=== PATIENT | female | born 1950 | race Caucasian/White ===

== ENCOUNTER → 2016-10-30 | Outpatient (CLI) | payer MEDICARE | LOC: RAD 14:07 | PROVIDERS: ATTEND Physician Assistant | DX: M25.561 Pain in right knee (principal) ==

== ENCOUNTER 2016-11-25 11:34 | Day surgery (SDC) | payer MEDICARE ==
[2016-11-23 11:10] LABS: HEMATOCRIT 43.1 % (36.0-47.0); HEMOGLOBIN 14.5 g/dL (12.0-15.5); HGB HCT DIFFERENCE 0.4; MEAN CORPUSCULAR HEMOGLOBIN 31.4 pg (27.0-33.4); MEAN CORPUSCULAR HGB CONC 33.6 g/dL (32.0-36.0); MEAN CORPUSCULAR VOLUME 93 fl (80-97); RED BLOOD COUNT 4.62 10^6/uL (3.72-5.28); RED CELL DISTRIBUTION WIDTH 13.9 % (11.5-14.0); WHITE BLOOD COUNT 5.3 10^3/uL (4.0-10.5)
[2016-11-23 11:35] LABS: ANION GAP 5 (5-19); BLOOD UREA NITROGEN 24 mg/dL (7-20); CALCIUM 9.3 mg/dL (8.4-10.2); CARBON DIOXIDE 32 mmol/L (22-30); CHLORIDE 104 mmol/L (98-107); GLUCOSE 142 mg/dL (75-110); POTASSIUM 4.1 mmol/L (3.6-5.0); SODIUM 140.9 mmol/L (137-145)
--- NOTE | 2016-11-23 21:52 | EKG REPORT ---
SEVERITY:- ABNORMAL ECG - SINUS RHYTHM FIRST DEGREE AV BLOCK BORDERLINE LEFT AXIS DEVIATION : Confirmed by: Yani Rolon 23-Nov-2016 21:50:50
[~2016-11-25 11:34] MED LIST: CEFAZOLIN 2 GM/D5W RTU 2 GM/50 ML RTUPB IV PRN; LACTATED RINGERS 1000 ML IV PRN; LIDOCAINE 0.5% INJ-PF (5 MG/ML) 50 ML SDV SUBCUT PRN; SUCCINYLCHOLINE CHLORIDE INJ 200 MG/10 ML VIAL ONE; SULFAMETHOXAZOLE/TRIMETHOPRIM 800-160 MG TABLET PO PRN
[2016-11-25] MEDS ORDERED: MIDAZOLAM 2 MG/2 ML INJ ONE (14:19)
[2016-11-25] MEDS ORDERED: FENTANYL CITRATE INJ/PF 100 MCG/2 ML AMPUL ONE ×2 (14:19)
[2016-11-25] MEDS ORDERED: EPHEDRINE SULFATE INJ 50 MG/1 ML AMPULE ONE (14:19)
[2016-11-25] MEDS ORDERED: ONDANSETRON HCL INJ/PF 4 MG/2 ML SDV ONE (14:19)
[2016-11-25] MEDS ORDERED: ACETAMINOPHEN 100 ML IV ONE (14:20)
[2016-11-25] MEDS ORDERED: PROPOFOL INJ 200 MG/20 ML VIAL IV ONE (14:20)
[2016-11-25] MEDS ORDERED: ONDANSETRON HCL INJ/PF 4 MG/2 ML SDV IV PRN (14:49)
[2016-11-25] MEDS ORDERED: FENTANYL CITRATE INJ/PF 100 MCG/2 ML AMPUL IV PRN ×3 (14:49)
[2016-11-25] MEDS ORDERED: HYDROCODONE/ACETAMINOPHEN 7.5-325 MG TABLET PO PRN (16:25)
[2016-11-25] MEDS: FENTANYL CITRATE INJ/PF 100 MCG/2 ML AMPUL ONE ×2 (16:35→16:46)
[2016-11-25] MEDS ORDERED: ONDANSETRON 4 MG TAB.RAPDIS ONE (17:53)
[2016-11-25 18:50] VITALS: BP 194/88
--- NOTE | 2016-12-18 10:32 | Operative Report ---
Operative Report DATE OF SURGERY: 11/25/16 PREOPERATIVE DIAGNOSIS: Severe Urinary Incontinence POSTOPERATIVE DIAGNOSIS: Same OPERATION: Suprapubic Catheter Placement SURGEON: EMERSON HUGHES ANESTHESIA: GA TISSUE REMOVED OR ALTERED: NO COMPLICATIONS: NO ESTIMATED BLOOD LOSS: <30cc INTRAOPERATIVE FINDINGS: N/A PROCEDURE: The patient was brought to the operating room where she was placed in the supine position on the operating table followed by induction of general anesthesia. The skin of the lower abdomen, genitalia, perineum and upper thighs was repaired with ChloraPrep. The area was then draped in sterile fashion. A transverse suprapubic incision was then made 2 fingerbreadths above the pubic symphysis. Section was carried down through the suprapubic fat pad is several centimeters until the anterior rectus sheath was identified. The midline was identified. The rectus sheath was incised transversely exposing the underlying rectus muscle bellies. Muscle bellies were bluntly in the midline exposing the retropubic space. Fat overlying the anterior bladder wall was then teased away until the anterior bladder wall was identified. A small anterior cystotomy incision was made between 2 Allis clamps entering the bladder lumen. A 20 La[employer] Sales catheter was then placed through the cystotomy incision into the bladder. The cystotomy incision was closed plantar. The cystotomy incision was then closed around the catheter using running 2-0 chromic suture. The catheter was anchored to the bladder wall with a separate 2-0 chromic suture. The catheter balloon was inflated to 10 mL the catheter was irrigated with normal saline with excellent return, indicating good position of the catheter within the bladder. Irrigation of the subcutaneous and retropubic spaces was then carried out. Meticulous hemostasis was achieved throughout the operative field. The rectus muscle bellies and into rectus sheath were reapproximated with running 0 Vicryl allowing the suprapubic tube to exit through the midline of the incision. The subcutaneous tissues beneath the skin level were reapproximated running 3-0 Vicryl, again taking care to make sure the tube was exiting the middle of the incision. Approximately with skin diallo around the tube. A 3-0 nylon suture was then used to anchor the tube to the suprapubic skin. An occlusive dressing was applied. The catheter was anchored to the abdominal wall and then was placed to gravity drainage with the bag tubing anchored to the thigh using a leg strap completing the procedure.
== END 2016-11-25 18:25 | disposition home or self-care (01) ==
LOC: OROUT 11:34
PROVIDERS: ATTEND Urology
PROC: 0TH Urinary System, Insertion (ICD-10-PCS; principal; 2016-11-25 14:00)
DX: N39.46 Mixed incontinence (principal); I10 Essential (primary) hypertension; E66.01 Morbid (severe) obesity due to excess calories; M06.9 Rheumatoid arthritis, unspecified; R01.1 Cardiac murmur, unspecified; E11.40 Type 2 diabetes mellitus with diabetic neuropathy, unspecified; E03.9 Hypothyroidism, unspecified; M79.7 Fibromyalgia; M35.9 Systemic involvement of connective tissue, unspecified; Z96.641 Presence of right artificial hip joint; Z96.652 Presence of left artificial knee joint; Z88.0 Allergy status to penicillin; Z88.5 Allergy status to narcotic agent; Z88.1 Allergy status to other antibiotic agents; Z88.8 Allergy status to other drugs, medicaments and biological substances; Z79.899 Other long term (current) drug therapy; Z79.84 Long term (current) use of oral hypoglycemic drugs; Z79.4 Long term (current) use of insulin; Z85.828 Personal history of other malignant neoplasm of skin; Z86.14 Personal history of Methicillin resistant Staphylococcus aureus infection; Z68.44 Body mass index [BMI] 60.0-69.9, adult
CPT/HCPCS: 93005; 36415; 82962; 85027; 80048; 71020; 93010; 51040; J2250; A9270 ×3; J3010; J0330; J2405; J2704; J0131; 800; J3490; S0119

== ENCOUNTER 2016-11-26 10:30 | Emergency (ER) | payer MEDICARE ==
[2016-11-26] MEDS ORDERED: ONDANSETRON 4 MG TAB.RAPDIS PO ONE (12:39)
--- NOTE | 2016-11-26 12:39 | ER Document Report ---
ED General - General Time seen by provider: 12:55 Mode of Arrival: Medic Information source: Patient, Relative - daughter in law TRAVEL OUTSIDE OF THE [place] IN LAST 30 DAYS: No - HPI Onset: Other - see HPI note Associated symptoms: Nonproductive cough, Nausea, Vomiting. denies: Fever - General Chief Complaint: Post Surgical Bleeding Stated Complaint: BLEEDING FROM CATHETER Notes: Patient is a 66-year-old female presented emergency department with complaints of post operative bleeding along with some nausea and vomiting. Patient had a suprapubic catheter placed yesterday while under anesthesia. Patient states that she gets very nauseous from anesthesia. Patient has had some bloody discharge from around associated pubic catheter and said that it has been soaking up the gauze. Patient states that her daughter did not come to assist her last night and her catheter was not lowered so there may have been some back up. Patient states that she vomited all night long and is requesting something P of fluids. Patient denies any fever. Patient has home health visit her 2 times per week. Patient states that she has had to recover her incision multiple times due to the drainage. The urologist who conducted the operation yesterday, Lakhwinder Hughes MD, was into the emergency department to see the patient at time of exam. Patient's also has a cough that she attests that it is from anesthesia. Patient is presently emergency department with her [id number]. Dr. Hughes states that the patient's discharge should gradually stop and she does not need any antibiotics for this; he also states that the patient should be able to go home and contact him if there are any worsening symptoms. (AMANDA SCHILLING) - Related Data Allergies/Adverse Reactions: ciprofloxacin [From Cipro] Allergy (Severe, Verified 05/28/15 16:20) Anaphylaxis Penicillins Allergy (Severe, Verified 05/28/15 16:20) Anaphylaxis adhesive tape [Adhesive Tape] Adverse Reaction (Severe, Verified 11/23/16 10:51) BLISTERS, SKIN BECOMES RAW indomethacin [From Indocin] Adverse Reaction (Severe, Verified 11/23/16 10:51) CAUSES SWELLING AND INFLAMMATION meperidine HCl [From Demerol] Adverse Reaction (Severe, Verified 11/23/16 10:51) Hallucinations Past Medical History - General Information source: Patient - Social History Smoking Status: Unknown if Ever Smoked Family History: Hypertension - Past Medical History Cardiac Medical History: Reports: Hx Coronary Artery Disease - vascular probs pennie legs, Hx Hypercholesterolemia, Hx Hypertension - on meds, Hx Peripheral Vascular Disease, Hx Heart Murmur Pulmonary Medical History: Reports: Hx Asthma - severe,neb,inhaler, Hx Bronchitis - in past Endocrine Medical History: Reports: Hx Diabetes Mellitus Type 2, Hx Hypothyroidism Renal/ Medical History: Reports: Hx Ovarian Cysts GI Medical History: Reports: Hx Gastroesophageal Reflux Disease, Hx Hiatal Hernia, Hx Irritable Bowel Musculoskeltal Medical History: Reports Hx Arthritis - RA,fibromyalgia, Reports Hx Fibromyalgia Traumatic Medical History: Reports: Hx Fractures Past Surgical History: Reports: Hx Cholecystectomy, Hx Gastric Bypass Surgery - Lap Band, post in stomach for lap band , Hx Hysterectomy, Hx Orthopedic Surgery - right hip x3, left knee x1 - Immunizations Hx Diphtheria, Pertussis, Tetanus Vaccination: Yes Hx Pneumococcal Vaccination: 10/11/12 Review of Systems - Review of Systems Constitutional: No symptoms reported. denies: Fever EENT: No symptoms reported Cardiovascular: No symptoms reported Respiratory: See HPI, Cough Gastrointestinal: See HPI, Nausea, Vomiting Genitourinary: See HPI Female Genitourinary: No symptoms reported Musculoskeletal: No symptoms reported Skin: No symptoms reported Hematologic/Lymphatic: No symptoms reported Neurological/Psychological: No symptoms reported -: Yes All other systems reviewed and negative Physical Exam - Vital signs Interpretation: Hypertensive - General General appearance: Appears well, Alert In distress: Mild - HEENT Head: Normocephalic, Atraumatic Eyes: Normal Pupils: PERRL Mucous membranes: Moist - Respiratory Respiratory status: No respiratory distress Chest status: Nontender Breath sounds: Normal Chest palpation: Normal - Cardiovascular Rhythm: Regular Heart sounds: Normal auscultation Murmur: No - Abdominal Inspection: Morbidly Obese, Other - 7 centimeters incision extending from either side of the suprapubic catheter, multiple diallo in place and drainage; no erythema or sign of infection Distension: No distension Bowel sounds: Normal Tenderness: Tender - Tenderness around the suprapubic catheter incision site Organomegaly: No organomegaly - Back Back: Normal, Nontender - Extremities General upper extremity: Normal inspection, Normal ROM, Normal strength General lower extremity: Edema - pitting edema bilaterally with erythema, Other - Venous stasis bilaterally - Neurological Neuro grossly intact: Yes Cognition: Normal Orientation: AAOx4 [place] Coma Scale Eye Opening: Spontaneous Jaye Coma Scale Verbal: Oriented [place] Coma Scale Motor: Obeys Commands [place] Coma Scale Total: 15 Speech: Normal - Psychological Associated symptoms: Normal affect, Normal mood - Skin Skin Temperature: Warm Skin Moisture: Dry - Vital signs Vitals: Temp Pulse Resp BP Pulse Ox 98.4 F 89 20 211/89 H 98 11/26/16 10:40 11/26/16 10:40 11/26/16 10:40 11/26/16 10:40 11/26/16 10:40 (NICOLÁS NUNO) Course - Re-evaluation Re-evalutation: 11/26/16 12:40 Patient presents having had a suprapubic catheter placed under anesthesia yesterday. Through the night the patient had postoperative nausea and vomiting. She says that she gets severe nausea from anesthesia. She indicates she took some Zofran this morning and stopped vomiting. She feels very dry. Through the night she said that she was soaking through the gauze pads around the suprapubic catheter with bloody discharge. She called the hospital [facility] they told her to come to the emergency department. The patient's urologist Dr. Hughes who did the procedure was here in the ED to evaluate the patient at the time of my examination. We removed the patient's bandages and this revealed a incision of approximately 7 cm horizontally extending from either side of the suprapubic catheter with multiple diallo in place and with drainage of serosanguineous liquid from the left-hand side of the incision. Dr. Hughes indicates that sometimes a small amount of urine passes up around the catheter until it all heals over well. He says that she has a lot of adipose tissue to get through and that this presentation is not unexpected. The catheter is draining well. Patient's abdomen is nontender. She does have tenderness around the suprapubic catheter incisional site. There is no erythema. No signs of infection. Dr. Hughes indicates that there is no utility to bladder scan as the catheter is draining. He does not normally put patient on antibiotics after this type of surgery. He indicates that she can go home with return precautions. We will give the patient some Zofran for her nausea and some jeffy dionne at her request. The patient seems much more relaxed now that she has spoken with her surgeon. ( NICOLÁS NUNO) - Vital Signs Vital signs: Temp Pulse Resp BP Pulse Ox 98.4 F 89 24 H 211/89 H 95 11/26/16 10:48 11/26/16 10:40 11/26/16 10:48 11/26/16 10:48 11/26/16 10:48 (NICOLÁS NUNO) (AMANDA SCHILLING) Discharge - Discharge Clinical Impression: Visit for wound check, Suprapubic catheter Vomiting Qualifiers: Vomiting type: unspecified Vomiting Intractability: non-intractable Nausea presence: with nausea Qualified Code(s): R11.2 - Nausea with vomiting, unspecified Condition: Stable Disposition: HOME, SELF-CARE Instructions: Vomiting ([facility]) Additional Instructions: Drink plenty fluids to stay well hydrated. Take your usual medications as prescribed. Follow-up with your urologist, Dr. Hughes, as scheduled. Return to emergency department for worsening drainage with excessive amounts changing pad 2-3 times per hour for 2 hours straight, fever, vomiting so not to keep down fluids despite nausea medication, chest pain, difficulty breathing, or any other worsening or concerning symptoms. For your information - additional information for post-operative care from your supra-pubic catheter placement yesterday. Your Recovery and Discharge If general anesthesia is given or if you are taking narcotics for pain, it may cause you to feel different for 2 or 3 days. You may have trouble remembering and feel tired. You should not drive, drink alcohol, or make any big decisions for at least 2 days. Diet: Continue to drink about 8 to 10 glasses of water each day. Eat a high-fiber diet so you dont strain while having a bowel movement. Activity: Slowly increase your activity. Be sure to get up and walk every few hours or so to prevent blood clot formation. Do not lift heavy items greater than 10 pounds or participate in strenuous activity for at least 4 weeks. Convalescent leave for 21 days starting today followed by light duty for 21 days. A light duty chit will be given to you at your follow up appointment. Wound Care: Always wash your hands before and after touching near your incision site. Do not soak in a bathtub, go swimming or submerge in water for at least 2 weeks. You may take a shower after the second postoperative day. A small amount of drainage from the incision is normal. If the dressing is soaked with blood, call the General Surgery clinic. A small amount of drainage from the incision is normal. If the dressing is soaked with blood, call your surgeon. If you have Steri-strips in place, they will fall off in 7 to 10 days. If you have a glue-like covering over the incision, allow the glue to flake off on its own. If you have a dressing covering your incision, you may remove your dressing after two days and leave it open to the air. If you have packing inside your wound. Remove the packing in 24 hours and change the dressing as instructed by your surgeon daily. Avoid wearing tight or rough clothing. It may rub against your incisions and make it harder for them to heal. Protect the new skin, especially from the sun. The sun can burn and cause darker scarring. Your scar will heal in about 4 to 6 weeks and will become softer and continue to fade over the next year. Bowel Movements: Avoid straining with bowel movements by increasing the fiber in your diet with high- fiber foods or [id number] medicines (like Metamucil and Fibercon). Be sure you are drinking 8 to 10 glasses of water each day. Be sure to also take the Colace as prescribed to prevent constipation from taking narcotics. Contact your surgeon if you have: Pain that will not go away Pain that gets worse A fever of more than 101F (38.3C) Repeated vomiting Swelling, redness, bleeding, or foul- smelling drainage from your wound site Strong or continuous abdominal pain or swelling of your abdomen No bowel movement by 3 days after the operation Follow up appointments: Follow up in the General Surgery clinic in 2 weeks. Please call for appointment time. Thank you for allowing [facility], Department of General Surgery to participate in your care. Referrals: LAKHWINDER HUGHES MD [SAMUEL BATISTA] - Follow up as needed (As scheduled by his office) Scribe Attestation: 11/26/16 12:52 I personally performed the services described in the documentation, reviewed and edited the documentation which was dictated to the scribe in my presence, and it accurately records my words and actions. (NICOLÁS NUNO) Scribe Documentation - Scribe Written by Scribe:: Amanda Schilling 11/26/16 13:10 acting as scribe for :: Ghotra
--- NOTE | 2016-11-26 15:09 | PDOC PROGRESS REPORT ---
Subjective Progress Note for:: 11/26/16 Subjective:: POD#1 open cystostomy tube placement. C/O excessive bleeding and drainage from beneath wound dressing. Expected degree of incisional pain. No f/c. Brisk UO from newly placed SP tube. Physical Exam Vital Signs: Temp Pulse Resp BP Pulse Ox 98.4 F 89 24 H 211/89 H 95 11/26/16 10:48 11/26/16 10:40 11/26/16 10:48 11/26/16 10:48 11/26/16 10:48 Intake & Output 11/25/16 11/26/16 11/27/16 06:59 06:59 06:59 Weight 171 kg Assessment & Plan - Diagnosis (1) Visit for wound check Is this a current diagnosis for this admission?: YesPlan: Dressing removed and wound inspected. Dressing soaked with blood tinged watery fluid with same trickling from tube insertion site mid wound. No purulence. No signs wound infection. No apparent fluid collection beneath incision. Excellent urine drainage from tube - not backed up. Very deep panus beneath incision. Suspect drainage is due to serosangiunous ooze from extensive raw surfaces. Tube itself is acting as a drain. Reassured pt and ER MD that there is no cause for alarm. Redress wound in ER, change dressing prn at home. Expect drainage to diminish with time. Return to clinic or ER prn if develops fever, omayra-incisional erythema, or drainage becomes puruent.
[2016-11-26 16:22] VITALS: BP 155/86
== END 2016-11-26 16:40 | disposition home or self-care (01) ==
LOC: ER 10:30
DX: Z48.816 Encounter for surgical aftercare following surgery on the genitourinary system (principal); R11.2 Nausea with vomiting, unspecified; R05 Cough; I25.10 Atherosclerotic heart disease of native coronary artery without angina pectoris; I10 Essential (primary) hypertension; J45.909 Unspecified asthma, uncomplicated; E11.51 Type 2 diabetes mellitus with diabetic peripheral angiopathy without gangrene; Z98.84 Bariatric surgery status; Z88.0 Allergy status to penicillin; Z87.892 Personal history of anaphylaxis; Z88.1 Allergy status to other antibiotic agents; I87.8 Other specified disorders of veins
CPT/HCPCS: 99284; A9270; S0119

== ENCOUNTER → 2017-02-25 | Outpatient (CLI) | payer MEDICARE ==
--- NOTE | 2017-02-25 17:12 | XCELERA REPORT ---
[address] [address] Lower Extremity Venous Evaluation Name: NETTA RICO Age: 66 yrs Gender: Female : 1950 Patient Status: Outpatient Patient Location: Study Date: 02/25/2017 04:34 PM Procedure: Color flow and duplex imaging of the veins of the left lower extremity as well as the right Common Femoral vein. Reason For Study: RLE M79.604 PAIN Ordering Physician: BRIDGER MONSON Performed By: Kody Del Toro Right Sided Venous Evaluation The right common femoral vein is fully compressible. Spontaneous and phasic flow is present in the right common femoral vein. Left Sided Venous Evaluation Normal vessel filling wall to wall, compression and augmentation as well as Colour flow down to the infrageniculate veins. Interpretation Summary No duplex evidence of DVT or obstruction in the left lower extremity nor in the right Common Femoral vein. Study challenging due to body habitus. : BRIDGER MONSON > Bridger Monson
== END ==
LOC: SP 15:56
PROVIDERS: ATTEND Surgery
DX: M79.604 Pain in right leg (principal)
CPT/HCPCS: 93971

== ENCOUNTER → 2017-04-20 | Outpatient (CLI) | payer MEDICARE ==
--- NOTE | 2017-04-20 08:20 | RADIOLOGY REPORT (SQ) ---
EXAM DESCRIPTION: CT HEAD WITHOUT COMPLETED DATE/TIME: 04/20/2017 7:58 am REASON FOR STUDY: HYPERSOMNIA (G47.10) G47.10 HYPERSOMNIA, UNSPECIFIED COMPARISON: 09/01/2016. TECHNIQUE: Axial images acquired through the brain without intravenous contrast. Images reviewed wi th bone, brain and subdural windows. Images stored on PACS. All CT scanners at this facility use dose modulation, iterative reconstruction, and/or weight based d osing when appropriate to reduce radiation dose to as low as reasonably achievable (ALARA). [facility]: Dose Right [facility]: CareDose [facility]: Dose Right [facility]: Teradose 4D [facility]: Smart [employer] RADIATION DOSE: Up-to-date CT equipment and radiation dose reduction techniques were employed. CTDIv ol: 49.0 mGy. DLP: 783 mGy-cm. mGy. LIMITATIONS: None. FINDINGS: VENTRICLES: Normal size and contour. CEREBRUM: No masses. No hemorrhage. No midline shift. Normal gambino/white matter differentiation. N o evidence for acute infarction. CEREBELLUM: No masses. No hemorrhage. No alteration of density. No evidence for acute infarction. EXTRAAXIAL SPACES: No fluid collections. No masses. ORBITS AND GLOBE: No intra- or extraconal masses. Normal contour of globe without masses. CALVARIUM: No fracture. PARANASAL SINUSES: No fluid or mucosal thickening. SOFT TISSUES: No mass or hematoma. OTHER: No other significant finding. IMPRESSION: NORMAL BRAIN CT WITHOUT CONTRAST. TECHNICAL DOCUMENTATION: JOB ID: [id number] Quality ID # [id number]: Final reports with documentation of one or more dose reduction techniques (e.g., Au tomated exposure control, adjustment of the mA and/or kV according to patient size, use of iterative reconstruction technique) 2010 [employer]- All Rights Reserved
== END ==
LOC: RAD 07:29
PROVIDERS: ATTEND Physician Assistant
DX: G47.10 Hypersomnia, unspecified (principal)
CPT/HCPCS: 70450

== ENCOUNTER → 2017-05-10 | Outpatient (CLI) | payer MEDICARE ==
--- NOTE | 2017-05-10 15:00 | RADIOLOGY REPORT (SQ) ---
EXAM DESCRIPTION: KNEE LEFT 4 VIEW COMPLETED DATE/TIME: 05/10/2017 11:20 am REASON FOR STUDY: PAIN IN LEFT KNEE R91.1 SOLITARY PULMONARY NODULE R94.4 ABNORMAL RESULTS OF KIDN EY FUNCTION STUDIES COMPARISON: None. NUMBER OF VIEWS: Four views. TECHNIQUE: AP, lateral, and both oblique radiographic images acquired of the left knee. LIMITATIONS: None. FINDINGS: MINERALIZATION: Normal. BONES: No acute fracture or dislocation. Intact knee prosthesis. No worrisome bone lesions. JOINT: No effusion. SOFT TISSUES: No soft tissue swelling. No radio-opaque foreign body. OTHER: No other significant finding. IMPRESSION: INTACT KNEE PROSTHESIS. NO RADIOGRAPHIC EVIDENCE OF ACUTE INJURY. TECHNICAL DOCUMENTATION: JOB ID: [id number] [employer]- All Rights Reserved
--- NOTE | 2017-05-10 15:09 | RADIOLOGY REPORT (SQ) ---
EXAM DESCRIPTION: U/S RETROPERITON (RENAL/AORTA) COMPLETED DATE/TIME: 05/10/2017 11:36 am REASON FOR STUDY: ABNORMAL RESULTS OF KIDNEY STUDIES R91.1 SOLITARY PULMONARY NODULE R94.4 ABNORMA L RESULTS OF KIDNEY FUNCTION STUDIES COMPARISON: None. TECHNIQUE: Dynamic and static grayscale images acquired of the kidneys and bladder and recorded on P ACS. Additional selected color Doppler and spectral images recorded. LIMITATIONS: Body habitus. FINDINGS: RIGHT KIDNEY: Normal size. No hydronephrosis. LEFT KIDNEY: Normal size. No hydronephrosis. BLADDER: Not visualized. OTHER FINDINGS: No other significant finding. IMPRESSION: No hydronephrosis. TECHNICAL DOCUMENTATION: JOB ID: [id number] [employer]- All Rights Reserved
--- NOTE | 2017-05-10 15:41 | RADIOLOGY REPORT (SQ) ---
EXAM DESCRIPTION: CT CHEST WITHOUT COMPLETED DATE/TIME: 05/10/2017 10:18 am REASON FOR STUDY: PULMONARY NODULE R91.1 SOLITARY PULMONARY NODULE R94.4 ABNORMAL RESULTS OF KIDNE Y FUNCTION STUDIES COMPARISON: 04/03/2015, 04/21/2016 TECHNIQUE: CT scan performed of the chest without intravenous contrast. Images reviewed with lung, soft tissue and bone windows. Reconstructed coronal and sagittal MPR images reviewed. All images st ored on PACS. All CT scanners at this facility use dose modulation, iterative reconstruction, and/or weight based d osing when appropriate to reduce radiation dose to as low as reasonably achievable (ALARA). [facility]: Dose Right [facility]: CareDose [facility]: Dose Right [facility]: Teradose 4D [facility]: [employer] RADIATION DOSE: Up-to-date CT equipment and radiation dose reduction techniques were employed. CTDIv ol: 19.4 mGy. DLP: 686 mGy-cm. mGy. LIMITATIONS: Body habitus. FINDINGS: LUNGS AND PLEURA: Previously described primarily pleural-based nodules in the right lung h ave been stable since 2014 consistent with benign etiology. No new nodules are identified. No effus ions. No fibrosis. HILAR AND MEDIASTINAL STRUCTURES: No identified masses or abnormal nodes. No obvious aneurysm. HEART AND VASCULAR STRUCTURES: No aneurysm. No pericardial effusion. UPPER ABDOMEN: Prior lap banding. THYROID AND OTHER SOFT TISSUES: No masses. No adenopathy. BONES: No significant finding. HARDWARE: None in the chest. OTHER: No other significant findings. IMPRESSION: Benign pulmonary nodules. TECHNICAL DOCUMENTATION: JOB ID: [id number] Quality ID # [id number]: Final reports with documentation of one or more dose reduction techniques (e.g., Au tomated exposure control, adjustment of the mA and/or kV according to patient size, use of iterative reconstruction technique) 2010 [employer]- All Rights Reserved
== END ==
LOC: RAD 09:56
PROVIDERS: ATTEND Internal Medicine Critical Care Medicine
DX: R91.1 Solitary pulmonary nodule (principal); R09.02 Hypoxemia; R06.83 Snoring; M25.562 Pain in left knee; J45.40 Moderate persistent asthma, uncomplicated; M06.9 Rheumatoid arthritis, unspecified; R05 Cough; R06.00 Dyspnea, unspecified; E66.01 Morbid (severe) obesity due to excess calories; R94.4 Abnormal results of kidney function studies
CPT/HCPCS: 71250; 76770

== ENCOUNTER → 2017-06-03 | Outpatient (CLI) | payer MEDICARE ==
--- NOTE | 2017-06-03 13:30 | WOMENS IMAGING REPORT ---
EXAM DESCRIPTION: BILAT SCREENING MAMMO W/CAD COMPLETED DATE/TIME: 06/03/2017 11:44 am REASON FOR STUDY: ROUTINE SCREENING; Z12.31 Z12.31 ENCNTR SCREEN MAMMOGRAM FOR MALIGNANT NEOPLASM O F OLIVERIO M81.0 AGE-RELATED OSTEOPOROSIS W/O CURRENT PATHOLOGICAL FRAC COMPARISON: 2009 to 2014 TECHNIQUE: Standard craniocaudal and mediolateral oblique views of each breast recorded using digita l acquisition. LIMITATIONS: None. FINDINGS: No masses, calcifications or architectural distortion. No areas of suspicion. Read with the assistance of CAD. .[facility] - R2 Cenova Version 1.3 .[facility] - R2 Cenova Version 1.3 .[facility] - R2 Cenova Version 2.4 .[facility] [place] R2 Cenova Version 2.4 .[facility] - R2 Director Of Special Education Version 9.2 IMPRESSION: NORMAL MAMMOGRAM. BIRADS 1. BREAST DENSITY: c. The breasts are heterogeneously dense, which may obscure small masses. BIRAD: 1 NEGATIVE RECOMMENDATION: ROUTINE SCREENING COMMENT: The patient has been notified of the results by letter per SA requirements. Additional no tification policies are in place for contacting patient with suspicious or incomplete findings. Quality ID #[id number]: The [employer] recommends an annual screening mammogram for women aged 40 years or over. This facility utilizes a reminder system to ensure that all patients receive reminder letters, and/or direct phone calls for appointments. This includes reminders for routine scr eening mammograms, diagnostic mammograms, or other Breast Imaging Interventions when appropriate. Th is patient will be placed in the appropriate reminder system. The [employer] (ACR) has developed recommendations for screening MRI of the breast s in certain patient populations, to be used in conjunction with mammography. Breast MRI surveillanc e may be appropriate for women with more than 20% lifetime risk of developing breast cancer as deter mined by genetic testing, significant family history of the disease, or history of mantle radiation f or Hodgkins Disease. ACR Practice Guidelines 2008. TECHNICAL DOCUMENTATION: FINDING NUMBER: (1) ASSESSMENT: (1) JOB ID: [id number] [employer]- All Rights Reserved
--- NOTE | 2017-06-03 16:17 | WOMENS IMAGING REPORT ---
EXAM DESCRIPTION: BONE DENSITY HIP/SPINE COMPLETED DATE/TIME: 06/03/2017 11:44 am REASON FOR STUDY: AGE-RELATED OSTEOPROSIS; M81.0 Z12.31 ENCNTR SCREEN MAMMOGRAM FOR MALIGNANT NEOPL ASM OF OLIVERIO M81.0 AGE-RELATED OSTEOPOROSIS W/O CURRENT PATHOLOGICAL FRAC COMPARISON: None. TECHNIQUE: Dual-Energy X-ray Absorptiometry (DEXA) of the AP Spine and Hip. LIMITATIONS: None. FINDINGS: Distal left forearm: The bone mineral density (BMD) measured from L1-L4 in the AP projection correlates with a T-score of +0.5, which is normal as defined by the World Health Organization. HIP: The bone mineral density (BMD) measured in the left femoral neck at the hip correlates with a T-score of +0.6, which is normal as defined by the World Health Organization. IMPRESSION: 1. Distal left forearm: Normal 2. HIP: Normal COMMENT: The World Health Organization defines low BMD as follows: T-score: Normal: Greater than -1.0 Osteopenia: Between -1.0 and -2.5 Osteoporosis: Less than -2.5 without fractures Established osteoporosis: Less than -2.5 with fractures In general, you may wish to consider: Diagnosis Treatment Follow-up DEXA Normal BMD Prevention 2-3 years Osteopenia Prevention/Therapy 1-2 years Osteoporosis Therapy Yearly TECHNICAL DOCUMENTATION: JOB ID: [id number]- All Rights Reserved
== END ==
LOC: WI 10:02
PROVIDERS: ATTEND Physician Assistant
DX: Z12.31 Encounter for screening mammogram for malignant neoplasm of breast (principal); M81.0 Age-related osteoporosis without current pathological fracture
CPT/HCPCS: 77080; G0202; 77067

== ENCOUNTER → 2017-07-26 | Outpatient (CLI) | payer MEDICARE ==
[2017-07-26 17:44] LABS: ANION GAP 11 (5-19); BLOOD UREA NITROGEN 23 mg/dL (7-20); CALCIUM 8.7 mg/dL (8.4-10.2); CARBON DIOXIDE 35 mmol/L (22-30); CHLORIDE 95 mmol/L (98-107); CREATININE RESULT 0.77 mg/dL (0.52-1.25); GLUCOSE 145 mg/dL (75-110); SODIUM 140.7 mmol/L (137-145)
== END ==
LOC: OD 15:32
PROVIDERS: ATTEND Internal Medicine
DX: Z01.810 Encounter for preprocedural cardiovascular examination (principal); I34.0 Nonrheumatic mitral (valve) insufficiency; E11.9 Type 2 diabetes mellitus without complications; E78.4 Other hyperlipidemia; J45.909 Unspecified asthma, uncomplicated; R00.2 Palpitations; Z79.899 Other long term (current) drug therapy
CPT/HCPCS: 36415; 80048; 83880

== ENCOUNTER → 2017-09-20 | Outpatient (CLI) | payer MEDICARE ==
[2017-09-20 11:14] LABS: HEMATOCRIT 43.5 % (36.0-47.0); HEMOGLOBIN 14.9 g/dL (12.0-15.5); HGB HCT DIFFERENCE 1.2; MEAN CORPUSCULAR HGB CONC 34.3 g/dL (32.0-36.0); MEAN CORPUSCULAR VOLUME 93 fl (80-97); RED BLOOD COUNT 4.67 10^6/uL (3.72-5.28); RED CELL DISTRIBUTION WIDTH 13.4 % (11.5-14.0); WHITE BLOOD COUNT 6.4 10^3/uL (4.0-10.5)
[2017-09-20 11:21] LABS: APPEARANCE,URINE CLEAR; BILIRUBIN,URINE NEGATIVE (NEGATIVE); GLUCOSE, URINE NEGATIVE (NEGATIVE); KETONES,URINE NEGATIVE (NEGATIVE); LEUKOCYTE ESTERASE,URINE TRACE (NEGATIVE); NITRITE,URINE NEGATIVE (NEGATIVE); PROTEIN,URINE NEGATIVE (NEGATIVE); URINE SPECIFIC GRAVITY 1.009; UROBILINOGEN,URINE NEGATIVE mg/dL (<2.0)
[2017-09-20 11:44] LABS: ANION GAP 11 (5-19); BLOOD UREA NITROGEN 31 mg/dL (7-20); CALCIUM 9.4 mg/dL (8.4-10.2); CARBON DIOXIDE 34 mmol/L (22-30); CHLORIDE 99 mmol/L (98-107); CREATININE RESULT 0.84 mg/dL (0.52-1.25); GLUCOSE 109 mg/dL (75-110); POTASSIUM 4.1 mmol/L (3.6-5.0); SODIUM 143.6 mmol/L (137-145)
== END ==
LOC: OD 10:19
PROVIDERS: ATTEND Physician Assistant Medical
DX: N18.2 Chronic kidney disease, stage 2 (mild) (principal); I11.0 Hypertensive heart disease with heart failure; I50.9 Heart failure, unspecified; E11.9 Type 2 diabetes mellitus without complications
CPT/HCPCS: 36415; 80048; 81001; 85027

== ENCOUNTER → 2018-01-19 | Outpatient (CLI) | payer MEDICARE ==
--- NOTE | 2018-01-19 14:30 | RADIOLOGY REPORT (SQ) ---
EXAM DESCRIPTION: U/S RETROPERITON (RENAL/AORTA) COMPLETED DATE/TIME: 01/19/2018 2:06 pm REASON FOR STUDY: NEUROMUSCULAR DYSFUNCTION OF BLADDER N31.9 NEUROMUSCULAR DYSFUNCTION OF BLADDER, UNSPECIFIED E11.9 TYPE 2 DIABETES MELLITUS WITHOUT COMPLICATIONS N39.0 URINARY TRACT INFECTION, SIT E NOT SPECIFIED COMPARISON: 2016. TECHNIQUE: Dynamic and static grayscale images acquired of the kidneys and bladder and recorded on P ACS. Additional selected color Doppler and spectral images recorded. LIMITATIONS: Limiting habitus. FINDINGS: RIGHT KIDNEY: Normal size. Normal echogenicity. No solid or suspicious masses. No hydronep hrosis. No calcifications. LEFT KIDNEY: Normal size. Normal echogenicity. No solid or suspicious masses. No hydronephrosis. No calcifications. BLADDER: Not seen. OTHER FINDINGS: No other significant finding. IMPRESSION: Allowing for limited study, kidneys grossly free of masses or obstruction. Bladder not seen. TECHNICAL DOCUMENTATION: JOB ID: [id number] [employer]- All Rights Reserved Reading location - IP/workstation name: [email or web address]
== END ==
LOC: RAD 13:18
PROVIDERS: ATTEND Physician Assistant
DX: N31.9 Neuromuscular dysfunction of bladder, unspecified (principal); E11.9 Type 2 diabetes mellitus without complications; N39.0 Urinary tract infection, site not specified
CPT/HCPCS: 76770

== ENCOUNTER → 2018-01-26 | Outpatient (CLI) | payer MEDICARE ==
--- NOTE | 2018-01-26 13:56 | RADIOLOGY REPORT (SQ) ---
EXAM DESCRIPTION: CT ABD/PELVIS ORAL ONLY COMPLETED DATE/TIME: 01/26/2018 1:25 pm REASON FOR STUDY: ABDOMINAL MASS R19.00 INTRA-ABD AND PELVIC SWELLING, MASS AND LUMP, UNSP SI COMPARISON: Renal ultrasound dated 01/19/2018 TECHNIQUE: CT scan of the abdomen and pelvis performed with oral contrast and no intravenous contras t. Images reviewed with lung, soft tissue, and bone windows. Reconstructed coronal and sagittal MPR i mages reviewed. All images stored on PACS. All CT scanners at this facility use dose modulation, iterative reconstruction, and/or weight based d osing when appropriate to reduce radiation dose to as low as reasonably achievable (ALARA). [facility]: Dose Right [facility]: CareDose [facility]: Dose Right [facility]: Teradose 4D [facility]: [employer] RADIATION DOSE: CT Rad equipment meets quality standard of care and radiation dose reduction techniq ues were employed. CTDIvol: 21.1 mGy. DLP: 1087 mGy-cm. mGy. LIMITATIONS: Artifact related to a right hip prosthesis is identified on several of the pelvic image s. FINDINGS: LOWER CHEST: No significant findings. No nodules or infiltrates. NON-CONTRASTED LIVER, SPLEEN, ADRENALS: Evaluation limited by lack of IV contrast. No identified sign ificant masses. PANCREAS: No masses. No peripancreatic inflammatory changes. GALLBLADDER: Status post cholecystectomy. RIGHT KIDNEY AND URETER: No suspicious masses. Assessment limited by lack of IV contrast. No signif icant calcifications. No hydronephrosis or hydroureter. LEFT KIDNEY AND URETER: No suspicious masses. Assessment limited by lack of IV contrast. No signifi cant calcifications. No hydronephrosis or hydroureter. AORTA AND RETROPERITONEUM: No aneurysm. No retroperitoneal masses or adenopathy. BOWEL AND PERITONEAL CAVITY: No obvious masses or inflammatory changes. No free fluid. APPENDIX: Normal. PELVIS, BLADDER, AND ABDOMINAL WALL: No abnormal pelvic masses. No abdominal wall hernias. There is laxity in the anterior abdominal musculature. Bladder is decompressed with a suprapubic catheter redd ng identified. BONES: No significant findings. OTHER: Hardware related to a gastric banding procedure is identified. IMPRESSION: No acute findings. Postsurgical changes as noted above. Other findings as noted above TECHNICAL DOCUMENTATION: JOB ID: [id number] Quality ID # [id number]: Final reports with documentation of one or more dose reduction techniques (e.g., Au tomated exposure control, adjustment of the mA and/or kV according to patient size, use of iterative reconstruction technique) 2010 [employer]- All Rights Reserved Reading location - IP/workstation name: [email or web address]
== END ==
LOC: RAD 12:13
PROVIDERS: ATTEND Internal Medicine
DX: R19.00 Intra-abdominal and pelvic swelling, mass and lump, unspecified site (principal)
CPT/HCPCS: 74176

== ENCOUNTER → 2018-02-10 | Outpatient (CLI) | payer MEDICARE ==
--- NOTE | 2018-02-10 17:20 | RADIOLOGY REPORT (SQ) ---
EXAM DESCRIPTION: HUMERUS RIGHT COMPLETED DATE/TIME: 02/10/2018 5:02 pm REASON FOR STUDY: PAIN IN RIGHT UPPER ARM M79.621 PAIN IN RIGHT UPPER ARM COMPARISON: None. NUMBER OF VIEWS: Two views. TECHNIQUE: Two radiographic images were acquired of the right humerus to include elbow and shoulder in at least one projection. LIMITATIONS: None. FINDINGS: MINERALIZATION: Osteopenic BONES: No acute fracture or dislocation. No worrisome bone lesions. SOFT TISSUES: No obvious swelling or foreign body. OTHER: Multiple large intra-articular loose bodies along the axillary recess of the right shoulder nilay int. Glenohumeral joint osteoarthritis with high-grade joint space narrowing and mild bony spurring. IMPRESSION: No acute fracture. Osteoarthritis right glenohumeral joint with large intra-articular loose bodies in the axillary reces s TECHNICAL DOCUMENTATION: JOB ID: [id number]- All Rights Reserved Reading location - IP/workstation name: [email or web address]
== END ==
LOC: OD 16:28
PROVIDERS: ATTEND Surgery
DX: M79.621 Pain in right upper arm (principal); M19.011 Primary osteoarthritis, right shoulder; M24.011 Loose body in right shoulder

== ENCOUNTER 2018-05-04 15:43 | Inpatient (IN) | payer MEDICARE ==
--- NOTE | 2018-05-04 17:04 | RADIOLOGY REPORT (SQ) ---
EXAM DESCRIPTION: CT HEAD WITHOUT COMPLETED DATE/TIME: 05/04/2018 4:47 pm REASON FOR STUDY: 16way; syncope COMPARISON: 04/20/2017 TECHNIQUE: Axial images acquired through the brain without intravenous contrast. Images reviewed wi th bone, brain and subdural windows. Additional sagittal and coronal reconstructions were generated. Images stored on PACS. All CT scanners at this facility use dose modulation, iterative reconstruction, and/or weight based d osing when appropriate to reduce radiation dose to as low as reasonably achievable (ALARA). [facility]: Dose Right [facility]: CareDose [facility]: Dose Right [facility]: Teradose 4D [facility]: [employer] RADIATION DOSE: CT Rad equipment meets quality standard of care and radiation dose reduction techniq ues were employed. CTDIvol: 53.2 mGy. DLP: 1070 mGy-cm. mGy. LIMITATIONS: None. FINDINGS: VENTRICLES: Normal size and contour. The cisterns are patent. CEREBRUM: No masses. No hemorrhage. No midline shift. No evidence for acute infarction. Normal gra y/white matter differentiation. No areas of low density in the white matter. CEREBELLUM: No masses. No hemorrhage. No alteration of density. No evidence for acute infarction. EXTRAAXIAL SPACES: Slight to mild age related involutional change. No fluid collections. No masses . ORBITS AND GLOBE: No intra- or extraconal masses. Normal contour of globe without masses. CALVARIUM: No fracture. PARANASAL SINUSES: No fluid or mucosal thickening. SOFT TISSUES: No mass or hematoma. OTHER: Right temporomandibular joint arthrosis. IMPRESSION: 1 No significant interval changes since the previous examination dated 04/20/2017. No ac randy intracranial abnormality. EVIDENCE OF ACUTE STROKE: NO. COMMENT: Quality ID # [id number]: Final reports with documentation of one or more dose reduction techniques (e.g., Automated exposure control, adjustment of the mA and/or kV according to patient size, use of iterative reconstruction technique) TECHNICAL DOCUMENTATION: JOB ID: [id number] [employer]- All Rights Reserved Reading location - IP/workstation name: [email or web address]
--- NOTE | 2018-05-04 17:41 | ER Document Report ---
ED Syncope and Near Syncope - General Chief Complaint: Syncope Stated Complaint: PASSED OUT Time Seen by Provider: 05/04/18 16:02 Information source: Patient Notes: Patient is a 68-year-old female that presents today after the patient states she has had multiple syncopal-like episodes for 6 months. She states that they have been much more frequent over the last week. She states 2 days ago she woke up "with my head in the fridge in my knees on the floor" and does not remember exactly how this occurred. She states these episodes are almost twice a day at this time. Patient has a history including juvenile rheumatoid arthritis, diabetes, long steroid history use, obesity, and normally ambulates with a wheelchair and pivots and turns with a walker. Patient denies any weakness above baseline. She denies any headache, neck pain, chest pain, abdominal pain, fevers, or vomiting. TRAVEL OUTSIDE OF THE [place] IN LAST 30 DAYS: No - HPI Patient complains to provider of: Fainting Symptoms prior to episode: Other - See above Position/Activity at time of episode: Standing Quality of pain: No pain Severity: Moderate Pain Level: Denies Context: Other - See above Injury location: None Current symptoms: None/feels back to normal Similar symptoms previously: No Recently seen / treated by doctor: No - Related Data Allergies/Adverse Reactions: ciprofloxacin [From Cipro] Allergy (Severe, Verified 05/28/15 16:20) Anaphylaxis Penicillins Allergy (Severe, Verified 05/28/15 16:20) Anaphylaxis adhesive tape [Adhesive Tape] Adverse Reaction (Severe, Verified 11/23/16 10:51) BLISTERS, SKIN BECOMES RAW indomethacin [From Indocin] Adverse Reaction (Severe, Verified 11/23/16 10:51) CAUSES SWELLING AND INFLAMMATION meperidine HCl [From Demerol] Adverse Reaction (Severe, Verified 11/23/16 10:51) Hallucinations Past Medical History - General Information source: Patient - Social History Smoking Status: Unknown if Ever Smoked Cigarette use (# per day): No Chew tobacco use (# tins/day): No Smoking Education Provided: No Frequency of alcohol use: None Drug Abuse: None Family History: Hypertension Patient has suicidal ideation: No Patient has homicidal ideation: No - Past Medical History Cardiac Medical History: Reports: Hx Coronary Artery Disease - vascular probs pennie legs, Hx Hypercholesterolemia, Hx Hypertension - on meds, Hx Peripheral Vascular Disease, Hx Heart Murmur Denies: Hx Heart Attack Pulmonary Medical History: Reports: Hx Asthma - severe,neb,inhaler, Hx Bronchitis - in past Denies: Hx COPD, Hx Pneumonia, Hx Respiratory Failure, Hx Sleep Apnea, Hx Tuberculosis Neurological Medical History: Denies: Hx Cerebrovascular Accident, Hx Seizures Endocrine Medical History: Reports: Hx Diabetes Mellitus Type 2, Hx Hypothyroidism Renal/ Medical History: Reports: Hx Ovarian Cysts. Denies: Hx Peritoneal Dialysis GI Medical History: Reports: Hx Gastroesophageal Reflux Disease, Hx Hiatal Hernia, Hx Irritable Bowel. Denies: Hx Pancreatitis Musculoskeletal Medical History: Reports Hx Arthritis - RA,fibromyalgia, Reports Hx Fibromyalgia Traumatic Medical History: Reports: Hx Fractures Past Surgical History: Reports: Hx Cholecystectomy, Hx Gastric Bypass Surgery - Lap Band, post in stomach for lap band , Hx Hysterectomy, Hx Orthopedic Surgery - right hip x3, left knee x1 - Immunizations Hx Diphtheria, Pertussis, Tetanus Vaccination: Yes Hx Pneumococcal Vaccination: 10/11/12 Review of Systems - Review of Systems Constitutional: denies: Fever EENT: denies: Eye discharge, Nose discharge Cardiovascular: denies: Chest pain, Palpitations Respiratory: denies: Short of breath Gastrointestinal: denies: Vomiting Musculoskeletal: Leg swelling - At baseline Skin: denies: Rash Neurological/Psychological: Other - no slurred speech -: Yes All other systems reviewed and negative Physical Exam - Vital signs Vitals: Temp Pulse Resp BP Pulse Ox 98.6 F 82 20 126/50 H 92 05/04/18 15:55 05/04/18 15:55 05/04/18 15:55 05/04/18 15:55 05/04/18 15:55 Notes: Reviewed vital signs and nursing note as charted by RN. CONSTITUTIONAL: Alert and oriented and responds appropriately to questions. Well -appearing; well-nourished HEAD: Normocephalic; atraumatic EYES: PERRL; full extraocular range of motion ENT: Normal nose; no rhinorrhea; moist mucous membranes; pharynx without lesions noted NECK: Supple without meningismus; non-tender; no cervical lymphadenopathy, no masses CARD: Regular rate and rhythm; no murmurs, no clicks, no rubs, no gallops; symmetric distal pulses RESP: Normal chest excursion without splinting or tachypnea; breath sounds clear and equal bilaterally ABD/GI: Normal bowel sounds; elevated BMI; soft, non-tender to deep palpation of all 4 quadrants of the abdomen; no palpable organomegaly or masses BACK: The back appears normal and is non-tender to palpation EXT: Normal ROM in all joints; non-tender to palpation; 2+ bilateral edema consistent with patient's baseline history SKIN: Normal color for age and race; warm; dry; good turgor; capillary refill < 2 seconds; no acute lesions noted NEURO: CN II through XII are intact; moves all extremities at baseline according to the patient; Motor and sensory function intact PSYCH: The patient's mood and manner are appropriate. Grooming and personal hygiene are appropriate. Course - Re-evaluation Re-evalutation: Given the above history and physical examination we will order CT scan of the head, cardiac panel, basic laboratory work, and place the patient on the monitor. Given the increased frequency of the syncopal-like events, I am uncertain to the etiology being cardiac, seizure-like, or neurologic in nature. 05/04/18 18:19 CT scan of the head as recorded. 05/04/18 18:32 Labs as recorded. Urine analysis from the suprapubic site as recorded. Urine culture is pending. 05/04/18 18:44 EKG shows heart of 78, normal sinus rhythm, first-degree AV block, left axis deviation, no obvious ST elevation or depression. 05/04/18 18:52 Potassium and creatinine as recorded. BUN is very elevated. I will provide a liter of fluid as well as some IV potassium. The patient is on the monitor. Still no focal neurological deficits. - Vital Signs Vital signs: Temp Pulse Resp BP Pulse Ox 98.6 F 82 18 143/57 H 98 05/04/18 15:55 05/04/18 15:55 05/04/18 18:07 05/04/18 18:07 05/04/18 18:07 - Laboratory Result Diagrams: 05/04/18 18:00 05/04/18 18:00 Laboratory results interpreted by me: 05/04/18 05/04/18 05/04/18 17:50 18:00 18:00 RDW 15.2 H Potassium 2.6 L* Chloride 92 L Carbon Dioxide 37 H BUN 67 H Creatinine 1.51 H Est GFR ( Amer) 41 L Est GFR (Non-Af Amer) 34 L Urine Blood SMALL H Urine Nitrite POSITIVE H Ur Leukocyte Esterase MODERATE H Discharge - Discharge Clinical Impression: Hypokalemia Syncope Qualifiers: Syncope type: unspecified Qualified Code(s): R55 - Syncope and collapse Acute renal failure Qualifiers: Acute renal failure type: unspecified Qualified Code(s): N17.9 - Acute kidney failure, unspecified Condition: Fair Disposition: ADMITTED OBSERVATION Admitting Provider: [facility] Unit Admitted: Telemetry Referrals: VALENTINA RAMOS MD [Primary Care Provider] - Follow up as needed
[2018-05-04 18:20] LABS: ABSOLUTE BASOPHILS # (AUTO) 0.1 10^3/uL (0.0-0.2); ABSOLUTE EOSINOPHILS # (AUTO) 0.2 10^3/uL (0.0-0.6); ABSOLUTE LYMPHOCYTES (AUTO) 1.9 10^3/uL (0.5-4.7); ABSOLUTE MONOCYTES (AUTO) 0.8 10^3/uL (0.1-1.4); ABSOLUTE NEUT (AUTO) 6.3 10^3/uL (1.7-8.2); BASOPHILS % (AUTO) 0.6 % (0-2); EOSINOPHILS % (AUTO) 2.1 % (0-6); HEMOGLOBIN 14.2 g/dL (12.0-15.5); LYMPHOCYTES % (AUTO) 20.7 % (13-45); MEAN CORPUSCULAR HEMOGLOBIN 32.4 pg (27.0-33.4); MEAN CORPUSCULAR HGB CONC 33.9 g/dL (32.0-36.0); MEAN CORPUSCULAR VOLUME 96 fl (80-97); MONOCYTES % (AUTO) 8.7 % (3-13); PLATELET COUNT 159 10^3/uL (150-450); RED BLOOD COUNT 4.39 10^6/uL (3.72-5.28); RED CELL DISTRIBUTION WIDTH 15.2 % (11.5-14.0); SEGMENTED NEUTROPHILS % (AUTO) 67.9 % (42-78); TOTAL CELLS COUNTED % (AUTO) 100 %; WHITE BLOOD COUNT 9.3 10^3/uL (4.0-10.5)
[2018-05-04 18:26] LABS: APPEARANCE,URINE CLEAR; BILIRUBIN,URINE NEGATIVE (NEGATIVE); COLOR,URINE STRAW; GLUCOSE, URINE NEGATIVE (NEGATIVE); KETONES,URINE NEGATIVE (NEGATIVE); LEUKOCYTE ESTERASE,URINE MODERATE (NEGATIVE); NITRITE,URINE POSITIVE (NEGATIVE); PROTEIN,URINE NEGATIVE (NEGATIVE); URINE SPECIFIC GRAVITY 1.008; UROBILINOGEN,URINE NEGATIVE mg/dL (<2.0)
[2018-05-04 18:40] LABS: ANION GAP 15 (5-19); BLOOD UREA NITROGEN 67 mg/dL (7-20); CALCIUM 9.4 mg/dL (8.4-10.2); CARBON DIOXIDE 37 mmol/L (22-30); CHLORIDE 92 mmol/L (98-107); GLUCOSE 107 mg/dL (75-110); SODIUM 144.1 mmol/L (137-145)
[2018-05-04 18:44] LABS: POTASSIUM 2.6 mmol/L (3.6-5.0)
[2018-05-04] MEDS ORDERED: POTASSI CL 20 MEQ/50 ML RIDER 20 MEQ/50 ML RTUPB IV ONE (18:51)
[2018-05-04] MEDS ORDERED: NORMAL SALINE 1000 ML 1,000 ML IV ONE (18:51)
[2018-05-04] MEDS ORDERED: ACETAMINOPHEN 325 MG TABLET PO PRN (19:00)
[2018-05-04] MEDS ORDERED: IPRATROPIUM/ALBUTEROL 0.5-2.5 MG/3 ML AMPUL NEB PRN (19:00)
[2018-05-04] MEDS ORDERED: ONDANSETRON 4 MG TAB.RAPDIS PO PRN (19:00)
[2018-05-04] MEDS ORDERED: GLUCAGON,HUMAN RECOMB 1 MG INJ IM PRN (19:11)
[2018-05-04] MEDS ORDERED: DEXTROSE 50%-WATER 25 GM/50 ML DISP.SYRIN IV PRN ×2 (19:11)
[2018-05-04] MEDS ORDERED: DEXTROSE 40% GEL 15 GM TUBE PO PRN ×2 (19:11)
[2018-05-04] MEDS ORDERED: PREGABALIN 50 MG CAPSULE PO ONE (19:25)
[2018-05-04] MEDS ORDERED: GLIMEPIRIDE 1 MG TABLET PO ONE (19:25)
[2018-05-04] MEDS ORDERED: METOPROLOL SUCCINATE 25 MG TAB.SR.24H PO ONE (19:26)
[2018-05-04] MEDS ORDERED: HYDROXYCHLOROQUINE SULFATE 200 MG TABLET PO ONE (19:26)
[2018-05-04] MEDS ORDERED: MONTELUKAST SODIUM 10 MG TABLET PO ONE (19:28)
[2018-05-04] MEDS ORDERED: MORPHINE SULFATE SR 30 MG TABLET PO ONE (19:28)
[2018-05-04] MEDS ORDERED: BACLOFEN 10 MG TABLET PO ONE (19:30)
[2018-05-04] MEDS ORDERED: TRAMADOL HCL 50 MG TABLET PO ONE (19:30)
[2018-05-04] MEDS ORDERED: POTASSIUM CHLORIDE 10 MEQ CAPSULE.ER PO ONE (20:00)
--- NOTE | 2018-05-04 20:37 | RADIOLOGY REPORT (SQ) ---
EXAM DESCRIPTION: CHEST SINGLE VIEW COMPLETED DATE/TIME: 05/04/2018 7:29 pm REASON FOR STUDY: syncope COMPARISON: 11/23/2016 EXAM PARAMETERS: NUMBER OF VIEWS: One view. TECHNIQUE: Single frontal radiographic view of the chest acquired. RADIATION DOSE: NA LIMITATIONS: Patient body habitus and portable technique FINDINGS: LUNGS AND PLEURA: Poor evaluation the lung bases. The remainder lungs are grossly clear. MEDIASTINUM AND HILAR STRUCTURES: No masses. Contour normal. HEART AND VASCULAR STRUCTURES: Heart normal in size. Normal vasculature. BONES: No acute findings. HARDWARE: None in the chest. OTHER: No other significant finding. IMPRESSION: Limited evaluation of the lung bases. No gross abnormalities appreciated. Consider upr ight PA and lateral if clinically feasible. TECHNICAL DOCUMENTATION: JOB ID: [id number] [employer]- All Rights Reserved Reading location - IP/workstation name: [email or web address]
[2018-05-04] MEDS: LORAZEPAM 1 MG TABLET PO PRN (20:44)
--- NOTE | 2018-05-04 21:03 | PDOC CONSULTATION ---
Consultation Consult Date: 05/04/18 Attending physician:: VALENTINA RAMOS Consult reason:: syncope History of Present Illness Admission Date/PCP: 05/04/18 19:21 VALENTINA RAMOS MD Patient complains of: Syncope History of Present Illness: NETTA RICO is a 68 year old female with the significant history of rheumatoid arthritis currently on the biological injections to the supervisory training specialist every 2 weeks with the history of the chronic kidney disease, history of the diastolic congestive heart failure, history of the hypertension, type 2 diabetes mellitus, sleep apnea, chronic pain syndromes and patients pretty much immobile due to the significant hip issues, with the recurrent urinary tract infections status post suprapubic catheter due to the neurological bladder currently see a urology and infectious disease and seen by the neurology last year because of excessive sleepiness and suggest most likely related to the pain medications and multiple other comorbidity came to the emergency department because of the complaining of for passing out episodes. Going on for the last several months and according to the patient's when suddenly she passed out and do not know that she is in when she wake up through her dog. Patient's denied any chest pain denied any shortness of the breath Patient is complaining some twitching on her upper extremities Patient's currently taking the morphine 3 times a day to the pain management and taking for almost more than 20 years and also taking the oxycodone once a day which he reduce Patient's also seen by infectious disease and suggest that no need for antibiotic unless and unless patient is symptomatic from the UTI due to the multiple urine cultures come back positive and multiple antibiotic use in the past and patient's high risk for the resistanceAnd patient have a suprapubic catheter is always bacteremia is present but asymptomatic bacteremia do not need to treat it Patient also seen Dr. Collins for chronic kidney disease pt also see a Dr. Farris the cardiology Patient also see a neurosurgery Dr. Lopez for the occipital neuralgia and chronic neck pain and back pain I saw the patient on the floor patient's denied any chest pain denied any shortness of the breath denied any abdominal pain just concern about twitching on the especially upper extremities In the emergency department patient's Potassium is 2.6 was replaced with the IV and p.o. potassiums. This comprehensive history obtained by the molding manager was reviewed and confirmed. Patient could not add much to it. Patient denies any preceding palpitations, nausea vomiting or diaphoresis. She just does not know what makes her pass out she just wakes up after her dog wakes her up. She has a service dog who can sense when patient is in trouble and tends to wake the patient up. Currently the service dog is resting on the same bed as the patient. Past Medical History Cardiac Medical History: Reports: Coronary Artery Disease - vascular probs pennie legs, Hyperlipidema, Hypertension - on meds, Peripheral Vascular Disease, Heart Murmur Denies: Myocardial Infarction Pulmonary Medical History: Reports: Asthma - severe,neb,inhaler, Bronchitis - in past Denies: Chronic Obstructive Pulmonary Disease (COPD), Pneumonia, Respiratory Failure, Sleep Apnea, Tuberculosis Neurological Medical History: Denies: Seizures Endocrine Medical History: Reports: Diabetes Mellitus Type 2, Hypothyroidism GI Medical History: Reports: Gastroesophageal Reflux Disease, Hiatal Hernia Musculoskeltal Medical History: Reports: Arthritis - RA,fibromyalgia, Fibromyalgia Hematology: Denies: Anemia, Hemophilia, Sickle Cell Disease Past Surgical History Past Surgical History: Reports: Cholecystectomy, Gastric Bypass Surgery - Lap Band, post in stomach for lap band , Hysterectomy, Orthopedic Surgery - right hip x3, left knee x1 Denies: Amputation Social History Information Source: Patient Smoking Status: Unknown if Ever Smoked Hx Recreational Drug Use: No Hx Prescription Drug Abuse: No - Advance Directive Resuscitation Status: Full Code Surrogate healthcare decision maker:: Analisa Burnette Patient's granddaughter is the surrogate decision-maker Family History Family History: Hypertension Parental Family History Reviewed: Yes Children Family History Reviewed: Yes Sibling(s) Family History Reviewed.: Yes Medication/Allergy Home Medications: Allopurinol [Zyloprim 300 mg Tablet] 300 mg PO DAILY 05/04/18 Amlodipine Besylate [Norvasc 5 mg Tablet] 5 mg PO DAILY 05/04/18 Baclofen [Baclofen 10 mg Tablet] 10 mg PO Q8 05/04/18 Furosemide [Lasix 40 mg Tablet] 40 mg PO TID 05/04/18 Glimepiride [Amaryl] 2 mg PO BID 05/04/18 Hydrochlorothiazide [Hydrodiuril 25 mg Tablet] 25 mg PO DAILY 05/04/18 Hydroxychloroquine Sulfate [Plaquenil 200 mg Tablet] 200 mg PO BID 05/04/18 Levothyroxine Sodium [Synthroid 0.088 mg Tablet] 0.088 mg PO Q6AM 05/04/18 Metoprolol Succinate [Toprol Xl 25 mg Tab.sr] 25 mg PO DAILY 05/04/18 Montelukast Sodium [Singulair 10 mg Tablet] 10 mg PO DAILY 05/04/18 Morphine Sulfate [Morphine Sulfate ER] 30 mg PO Q8HP PRN 05/04/18 Oxycodone HCl [Roxicodone] 30 mg PO DAILYP PRN 05/04/18 Tramadol HCl [Ultram 50 mg Tablet] 50 mg PO Q12HP PRN 05/04/18 Allergies/Adverse Reactions: ciprofloxacin [From Cipro] Allergy (Severe, Verified 05/28/15 16:20) Anaphylaxis Penicillins Allergy (Severe, Verified 05/28/15 16:20) Anaphylaxis adhesive tape [Adhesive Tape] Adverse Reaction (Severe, Verified 11/23/16 10:51) BLISTERS, SKIN BECOMES RAW indomethacin [From Indocin] Adverse Reaction (Severe, Verified 11/23/16 10:51) CAUSES SWELLING AND INFLAMMATION meperidine HCl [From Demerol] Adverse Reaction (Severe, Verified 11/23/16 10:51) Hallucinations Review of Systems Review of Systems: Constitutional: ABSENT: chills, fever(s), headache(s), weight gain, weight loss. Patient feels very fatigued and tired. Eyes: ABSENT: visual disturbances. Denies any redness or abnormal discharge Ears: ABSENT: hearing changes Cardiovascular: ABSENT: chest pain, dyspnea on exertion, orthropnea, palpitations. Describes chronic pedal edema. Respiratory: ABSENT: cough, hemoptysis. Describes history of COPD. Gastrointestinal: ABSENT: abdominal pain, constipation, diarrhea, hematemesis, hematochezia, nausea, vomiting Genitourinary: ABSENT: dysuria, hematuria, has urostomy. Musculoskeletal: ABSENT: joint swelling, describes significant problem with arthritis of hip and knee joint. Integumentary: ABSENT: rash, wounds Neurological: ABSENT: abnormal gait, abnormal speech, confusion, dizziness, focal weakness, describes history of recurrent syncope Psychiatric: ABSENT: anxiety, depression, homidical ideation, suicidal ideation Endocrine: ABSENT: cold intolerance, heat intolerance, menstrual abnormalities, polydipsia, polyuria Hematologic/Lymphatic: ABSENT: easy bleeding, easy bruising, lymphadenopathy Physical Exam Vital Signs: Temp Pulse Resp BP Pulse Ox 98.6 F 82 18 143/57 H 98 05/04/18 15:55 05/04/18 15:55 05/04/18 18:07 05/04/18 18:07 05/04/18 18:07 Intake & Output 05/03/18 05/04/18 05/05/18 06:59 06:59 06:59 Intake Total 8 Balance 8 Weight 168.5 kg Exam: GENERAL: well-nourished and in no acute distress. Alert and oriented x3 HEAD: Atraumatic, normocephalic. EYES: Pupils equal round and reactive to light, extraocular movements intact, sclera anicteric, conjunctiva are normal. ENT: TMs normal, nares patent, oropharynx clear without exudates. Moist mucous membranes. No oral ulcerations or bleeding gums noted NECK: supple without lymphadenopathy. Trachea is central. No cervical or axillary lymphadenopathy noted. Carotids are 2+, JVD WNL LUNGS: Respiration seems nonlabored, no significant accessory muscle action noted. Few bibasilar fine crackles are noted. No wheezes rales or rhonchi noted. No significant dullness noted on percussion. CHEST: Palpation of the chest wall shows no significant chest wall tenderness. 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 ABDOMEN: Soft, no significant tenderness appreciated, normoactive bowel sounds. No guarding, no rebound. No rigidity noted . No masses appreciated. EXTREMITIES: Pedal pulses are 1-2+, no calf tenderness noted. No clubbing or cyanosis. 1-2+ chronic pedal edema noted NEUROLOGICAL: Focused neurological exam showed no significant neurologic deficit. Normal speech, no focal weakness appreciated. PSYCH: Normal mood, normal affect. Judgment and insight within normal limits. SKIN: No significant ecchymosis, skin is noted to be warm. MUSCULOSKELETAL EXAM: No significant acute joint swelling noted. Results EKG Comments: Shows sinus rhythm, left axis deviation, left anterior hemiblock with secondary changes, no acute ST-T wave changes are noted. Impressions: Chest X-Ray 05/04/18 00:00 IMPRESSION: Limited evaluation of the lung bases. No gross abnormalities appreciated. Consider upright PA and lateral if clinically feasible. Head CT 05/04/18 16:03 IMPRESSION: 1 No significant interval changes since the previous examination dated 04/20/2017. No acute intracranial abnormality. EVIDENCE OF ACUTE STROKE: NO. Assessment & Plan - Diagnosis (1) Syncope Qualifiers: Syncope type: unspecified Qualified Code(s): R55 - Syncope and collapse Is this a current diagnosis for this admission?: Yes (2) Diastolic congestive heart failure Qualifiers: Heart failure chronicity: chronic Qualified Code(s): I50.32 - Chronic diastolic (congestive) heart failure Is this a current diagnosis for this admission?: No (3) Hyperlipidemia Qualifiers: Hyperlipidemia type: unspecified Qualified Code(s): E78.5 - Hyperlipidemia , unspecified Is this a current diagnosis for this admission?: Yes (4) Hypertension Qualifiers: Hypertension type: essential hypertension Qualified Code(s): I10 - Essential (primary) hypertension Is this a current diagnosis for this admission?: Yes (5) Hypokalemia Is this a current diagnosis for this admission?: Yes (6) Rheumatoid arthritis Qualifiers: Rheumatoid arthritis location: multiple sites Is this a current diagnosis for this admission?: Yes (7) Sleep apnea Is this a current diagnosis for this admission?: Yes - Notes Notes: Recommend 2D Echo, cardiac event monitoring etc Syncope: Exact etiology not clear. Agree with workup initiated by the molding manager which includes 2D echo, carotid duplex and cardiac monitoring. Various differential diagnosis includes cardiac dysrhythmia which includes both tachycardic rhythm and bradycardic rhythm, vertebrobasilar insufficiency, seizure disorder, hypoglycemia. One particular thing that I am concerned about is whether patient is just falling asleep because of either medication or underlying narcolepsy with or without cataplexy. Diastolic heart failure: Patient has a history of it and some chronic edema continue home medications. Hyperlipidemia: Recommend continuing statin therapy. Hypertension: Blood pressure under reasonable control. Blood pressure goal is 140/90 or less. Hypokalemia: This is just borderline with potassium at 3.5. Continue replacement. Rheumatoid arthritis: We will leave management to the specialist. Sleep apnea syndrome: Patient should continue with CPAP therapy. May consider evaluation with the [facility] as an outpatient. - Time Time Spent: 30 to 50 Minutes - CODE STATUS was discussed, patient remains full code. Surrogate decision-maker unchanged. Multiple medical problems were addressed. More than 50% of the time spent coordinating care, discussing management plans with involved caregivers. Management plans discussed with involved personnels. Medical decision making was of moderate to high complexity , patient's has multiple comorbidities. Medications reviewed and adjusted accordingly: Yes
[2018-05-04] MEDS ORDERED: OXYCODONE HCL SR 10 MG TABLET PO PRN (22:30)
--- NOTE | 2018-05-04 23:05 | EKG REPORT ---
SEVERITY:- ABNORMAL ECG - SINUS RHYTHM FIRST DEGREE AV BLOCK BORDERLINE IVCD WITH LAD CONSIDER ANTERIOR INFARCT : Confirmed by: Erica Farris MD 04-May-2018 23:05:00
[2018-05-05] MEDS: BACLOFEN 10 MG TABLET PO SCH ×4 (01:15→22:24)
[2018-05-05 01:49] LABS: CREATINE KINASE MB 1.91 ng/mL (<4.55)
[2018-05-05 01:50] LABS: TROPONIN I < 0.012 ng/mL
[2018-05-05] MEDS: POTASSI CL 40 MEQ/NS 1L 1,000 ML IV PRN (01:57)
[2018-05-05] MEDS: LEVOTHYROXINE SODIUM 0.088 MG TABLET PO SCH (06:12)
[2018-05-05 08:29] LABS: ABSOLUTE EOSINOPHILS # (AUTO) 0.3 10^3/uL (0.0-0.6); ABSOLUTE LYMPHOCYTES (AUTO) 2.6 10^3/uL (0.5-4.7); ABSOLUTE MONOCYTES (AUTO) 0.8 10^3/uL (0.1-1.4); ABSOLUTE NEUT (AUTO) 3.3 10^3/uL (1.7-8.2); BASOPHILS % (AUTO) 0.6 % (0-2); EOSINOPHILS % (AUTO) 4.5 % (0-6); HEMOGLOBIN 12.7 g/dL (12.0-15.5); LYMPHOCYTES % (AUTO) 36.4 % (13-45); MEAN CORPUSCULAR HEMOGLOBIN 32.7 pg (27.0-33.4); MEAN CORPUSCULAR HGB CONC 34.3 g/dL (32.0-36.0); MEAN CORPUSCULAR VOLUME 96 fl (80-97); MONOCYTES % (AUTO) 11.7 % (3-13); PLATELET COUNT 131 10^3/uL (150-450); RED BLOOD COUNT 3.87 10^6/uL (3.72-5.28); RED CELL DISTRIBUTION WIDTH 14.7 % (11.5-14.0); SEGMENTED NEUTROPHILS % (AUTO) 46.8 % (42-78); TOTAL CELLS COUNTED % (AUTO) 100 %; WHITE BLOOD COUNT 7.1 10^3/uL (4.0-10.5)
--- NOTE | 2018-05-05 08:40 | PDOC H&P ---
History of Present Illness Admission Date/PCP: 05/04/18 19:21 VALENTINA RAMOS MD Patient complains of: Syncopal episode History of Present Illness: NETTA RICO is a 68 year old female This is a 68-year-old female with the significant history of rheumatoid arthritis currently on the biological injections to the business analytics specialist every 2 weeks with the history of the chronic kidney diseaseHistory of the diastolic congestive heart failure history of the hypertension's type 2 diabetes mellitus sleep apnea chronic pain syndromes and patients pretty much immobile due to the significant hip issuesWith the recurrent urinary tract infections status post suprapubic catheter due to the neurological bladder currently see a urology and infectious disease and seen by the neurology last year because of excessive sleepiness and suggest most likely related to the pain medications and multiple other comorbidity came to the emergency department because of the complaining of for passing out episode thisGoing on for the last several months and according to the patient's when suddenly she passed out and do not know that she is in when she wake up through her dog Patient's denied any chest pain denied any shortness of the breath Patient is complaining some twitching on her upper extremities Patient's currently taking the morphine 3 times a day to the pain management and taking for almost more than 20 years and also taking the oxycodone once a day which he reduce Patient's also seen by infectious disease and suggest that no need for antibiotic unless and unless patient is symptomatic from the UTI due to the multiple urine cultures come back positive and multiple antibiotic use in the past and patient's high risk for the resistanceAnd patient have a suprapubic catheter is always bacteremia is present but asymptomatic bacteremia do not need to treat it Patient also seen Dr. Collins for chronic kidney disease pt also see a Dr. Farris the cardiology Patient also see a neurosurgery Dr. Lopez for the occipital neuralgia and chronic neck pain and back pain I saw the patient on the floor patient's denied any chest pain denied any shortness of the breath denied any abdominal pain just concern about twitching on the especially upper extremities In the emergency department patient'sPotassium is 2.6 was replaced with the IV and p.o. potassiums Past Medical History Cardiac Medical History: Reports: Coronary Artery Disease - vascular probs pennie legs, Hyperlipidema, Hypertension - on meds, Peripheral Vascular Disease, Heart Murmur Denies: Myocardial Infarction Pulmonary Medical History: Reports: Asthma - severe,neb,inhaler, Bronchitis - in past, Chronic Obstructive Pulmonary Disease (COPD), Sleep Apnea Denies: Pneumonia, Respiratory Failure, Tuberculosis Neurological Medical History: Denies: Seizures Neurological History Note: Occipital neuralgia Chronic pain syndrome Hypersomnia Neurogenic bladder status post suprapubic catheter Endocrine Medical History: Reports: Diabetes Mellitus Type 2, Hypothyroidism Renal/ Medical History: Reports: Chronic Kidney Disease GI Medical History: Reports: Gastroesophageal Reflux Disease, Hiatal Hernia Musculoskeltal Medical History: Reports: Arthritis - RA,fibromyalgia, Fibromyalgia Psychiatric Medical History: Reports: Depression Hematology: Denies: Anemia, Hemophilia, Sickle Cell Disease Infectious History Note: Recurrent urinary tract infections due to the suprapubic catheter Past Surgical History Past Surgical History: Reports: Cholecystectomy, Gastric Bypass Surgery - Lap Band, post in stomach for lap band , Hysterectomy, Orthopedic Surgery - right hip x3, left knee x1 Denies: Amputation Social History Information Source: Patient Smoking Status: Never Smoker Frequency of Alcohol Use: None Hx Recreational Drug Use: No Hx Prescription Drug Abuse: No Family History Family History: Reviewed & Not Pertinent, Hypertension Parental Family History Reviewed: Yes Children Family History Reviewed: Yes Sibling(s) Family History Reviewed.: Yes Medication/Allergy Home Medications: Allopurinol [Zyloprim 300 mg Tablet] 300 mg PO DAILY 05/04/18 Amlodipine Besylate [Norvasc 5 mg Tablet] 5 mg PO DAILY 05/04/18 Baclofen [Baclofen 10 mg Tablet] 10 mg PO Q8 05/04/18 Furosemide [Lasix 40 mg Tablet] 40 mg PO TID 05/04/18 Glimepiride [Amaryl] 2 mg PO BID 05/04/18 Hydrochlorothiazide [Hydrodiuril 25 mg Tablet] 25 mg PO DAILY 05/04/18 Hydroxychloroquine Sulfate [Plaquenil 200 mg Tablet] 200 mg PO BID 05/04/18 Levothyroxine Sodium [Synthroid 0.088 mg Tablet] 0.088 mg PO Q6AM 05/04/18 Metoprolol Succinate [Toprol Xl 25 mg Tab.sr] 25 mg PO DAILY 05/04/18 Montelukast Sodium [Singulair 10 mg Tablet] 10 mg PO DAILY 05/04/18 Morphine Sulfate [Morphine Sulfate ER] 30 mg PO Q8HP PRN 07/25/18 Oxycodone HCl [Roxicodone] 30 mg PO DAILYP PRN 05/04/18 Tramadol HCl [Ultram 50 mg Tablet] 50 mg PO Q12HP PRN 05/04/18 Allergies/Adverse Reactions: ciprofloxacin [From Cipro] Allergy (Severe, Verified 05/28/15 16:20) Anaphylaxis Penicillins Allergy (Severe, Verified 05/28/15 16:20) Anaphylaxis adhesive tape [Adhesive Tape] Adverse Reaction (Severe, Verified 11/23/16 10:51) BLISTERS, SKIN BECOMES RAW indomethacin [From Indocin] Adverse Reaction (Severe, Verified 11/23/16 10:51) CAUSES SWELLING AND INFLAMMATION meperidine HCl [From Demerol] Adverse Reaction (Severe, Verified 11/23/16 10:51) Hallucinations Review of Systems Constitutional: ABSENT: chills, fever(s), headache(s), weight gain, weight loss Eyes: ABSENT: visual disturbances Ears: ABSENT: hearing changes Cardiovascular: ABSENT: chest pain, dyspnea on exertion, edema, orthropnea, palpitations Respiratory: ABSENT: cough, hemoptysis Gastrointestinal: ABSENT: abdominal pain, constipation, diarrhea, hematemesis, hematochezia, nausea, vomiting Genitourinary: ABSENT: dysuria, hematuria Musculoskeletal: ABSENT: joint swelling Integumentary: ABSENT: rash, wounds Neurological: ABSENT: abnormal gait, abnormal speech, confusion, dizziness, focal weakness, syncope Psychiatric: ABSENT: anxiety, depression, homidical ideation, suicidal ideation Endocrine: ABSENT: cold intolerance, heat intolerance, menstrual abnormalities, polydipsia, polyuria Hematologic/Lymphatic: ABSENT: easy bleeding, easy bruising, lymphadenopathy Physical Exam Vital Signs: Temp Pulse Resp BP Pulse Ox 98.3 F 81 21 H 146/72 H 99 05/05/18 04:00 05/05/18 07:00 05/05/18 04:00 05/05/18 04:00 05/05/18 04:00 Intake & Output 05/04/18 05/05/18 05/06/18 06:59 06:59 06:59 Intake Total 425 Output Total 1900 Balance -1475 Weight 158.2 kg General appearance: PRESENT: no acute distress, morbidly obese, well-developed, well-nourished Head exam: PRESENT: atraumatic, normocephalic Eye exam: PRESENT: conjunctiva pink, EOMI, PERRLA. ABSENT: scleral icterus Ear exam: PRESENT: normal external ear exam Mouth exam: PRESENT: moist, tongue midline Neck exam: PRESENT: full ROM. ABSENT: carotid bruit, JVD, lymphadenopathy, thyromegaly Respiratory exam: PRESENT: clear to auscultation pennie Cardiovascular exam: PRESENT: RRR. ABSENT: diastolic murmur, rubs, systolic murmur Pulses: PRESENT: normal dorsalis pedis pul, +2 pedal pulses bilateral Vascular exam: PRESENT: normal capillary refill GI/Abdominal exam: PRESENT: normal bowel sounds, soft. ABSENT: distended, guarding, mass, organolmegaly, rebound, tenderness Additonal comments: Suprapubic catheter is intact and some candidiasis in the groin area Rectal exam: PRESENT: deferred Extremities exam: ABSENT: pedal edema Musculoskeletal exam: PRESENT: deformity Neurological exam: PRESENT: alert, awake, oriented to person, oriented to place , oriented to time, oriented to situation, CN II-XII grossly intact. ABSENT: motor sensory deficit Psychiatric exam: PRESENT: appropriate affect, normal mood. ABSENT: homicidal ideation, suicidal ideation Skin exam: PRESENT: dry, intact, warm. ABSENT: cyanosis, rash Results Laboratory Results: 05/05/18 05/05/18 00:20 01:18 CK-MB (CK-2) Cancelled 1.91 Troponin I Cancelled < 0.012 Impressions: Chest X-Ray 05/04/18 00:00 IMPRESSION: Limited evaluation of the lung bases. No gross abnormalities appreciated. Consider upright PA and lateral if clinically feasible. Head CT 05/04/18 16:03 IMPRESSION: 1 No significant interval changes since the previous examination dated 04/20/2017. No acute intracranial abnormality. EVIDENCE OF ACUTE STROKE: NO. Assessment & Plan - Diagnosis (1) Syncope Qualifiers: Syncope type: unspecified Qualified Code(s): R55 - Syncope and collapse Is this a current diagnosis for this admission?: Yes Plan: Very unclear etiology and unclear history Will get the MRI of the head and also rule out any metabolic issue I still believe is all related to the pain medications which patient seen by the neurology last year and suggest the same thing but patients do not willing to try to cut down any pain medications Is currently follow with the pain management (2) Hypokalemia Is this a current diagnosis for this admission?: Yes Plan: Replace the potassiums (3) Acute renal failure Qualifiers: Acute renal failure type: unspecified Qualified Code(s): N17.9 - Acute kidney failure, unspecified Is this a current diagnosis for this admission?: Yes Plan: Most likely underlying from dehydration's there was some IV fluid slowly (4) Tremor Is this a current diagnosis for this admission?: Yes Plan: Looks like more Intentional tremor will get the EEG MRI and other blood work and follow-up outpatients neurology (5) Type 2 diabetes mellitus Qualifiers: Diabetes mellitus fdc insulin use: unspecified remote computer terminal 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 insulin use status Is this a current diagnosis for this admission?: Yes Plan: Will continues a sliding scale and continues to current medication (6) Hyperlipidemia Qualifiers: Hyperlipidemia type: unspecified Qualified Code(s): E78.5 - Hyperlipidemia , unspecified Is this a current diagnosis for this admission?: Yes Plan: All stable continues to monitor (7) Neurogenic bladder Is this a current diagnosis for this admission?: Yes Plan: Patients currently see the urology with the suprapubic catheter (8) Chronic pain syndrome Is this a current diagnosis for this admission?: Yes Plan: Again discussed with the patient about the cut down the morphine but patients currently taking for a long time and currently see a pain management as outpatients (9) Sleep apnea Is this a current diagnosis for this admission?: Yes Plan: Will get the sleep studies report (10) Diastolic congestive heart failure Qualifiers: Heart failure chronicity: chronic Qualified Code(s): I50.32 - Chronic diastolic (congestive) heart failure Is this a current diagnosis for this admission?: Yes Plan: Will get the 2D echocardiogram todayConsult the cardiology (11) Recurrent urinary tract infection Is this a current diagnosis for this admission?: Yes Plan: Please send the urine for the culture patient's white count is normal remain afebrile we will currently hold the any antibiotic as per ID recommendations (12) Rheumatoid arthritis Qualifiers: Rheumatoid arthritis location: multiple sites Is this a current diagnosis for this admission?: Yes Plan: She is currently taking the biological medications patients currently see a business analytics specialist Dr. 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
[2018-05-05 09:00] LABS: ALANINE AMINOTRANSFERASE 35 U/L (9-52); ALBUMIN 2.9 g/dL (3.5-5.0); ALKALINE PHOSPHATASE 63 U/L (38-126); ANION GAP 10 (5-19); ASPARTATE AMINO TRANSFERASE 25 U/L (14-36); BILIRUBIN,DIRECT 0.2 mg/dL (0.0-0.4); BILIRUBIN,TOTAL 0.3 mg/dL (0.2-1.3); BLOOD UREA NITROGEN 62 mg/dL (7-20); CALCIUM 8.5 mg/dL (8.4-10.2); CARBON DIOXIDE 36 mmol/L (22-30); CHLORIDE 96 mmol/L (98-107); GLUCOSE 142 mg/dL (75-110); TOTAL PROTEIN 5.2 g/dL (6.3-8.2)
[2018-05-05 09:02] LABS: CREATINE KINASE MB 1.28 ng/mL (<4.55)
[2018-05-05 09:08] LABS: TROPONIN I < 0.012 ng/mL
[2018-05-05] MEDS ORDERED: MONTELUKAST SODIUM 10 MG TABLET PO SCH (10:00)
[2018-05-05] MEDS ORDERED: FUROSEMIDE 40 MG TABLET PO SCH (10:00)
[2018-05-05] MEDS: DOCUSATE SODIUM 100 MG CAPSULE PO SCH ×2 (10:17→18:46)
[2018-05-05] MEDS: FUROSEMIDE 40 MG TABLET PO SCH ×2 (10:18→18:51)
[2018-05-05] MEDS: AMLODIPINE BESYLATE 5 MG TABLET PO SCH (10:19)
[2018-05-05] MEDS: ENOXAPARIN SODIUM INJ 30 MG/0.3 ML DISP.SYRIN SUBCUT SCH (10:19)
[2018-05-05] MEDS: HYDROXYCHLOROQUINE SULFATE 200 MG TABLET PO SCH ×2 (10:20→18:51)
[2018-05-05] MEDS: METOPROLOL SUCCINATE 25 MG TAB.SR.24H PO SCH (10:20)
[2018-05-05] MEDS: NYSTATIN TOPICAL POWDER 15 GM TP SCH ×3 (10:28→18:58)
[2018-05-05] MEDS ORDERED: POTASSIUM CHLORIDE 10 MEQ CAPSULE.ER PO ONE ×2 (11:00→19:00)
[2018-05-05] MEDS: MORPHINE SULFATE SR 30 MG TABLET PO PRN ×2 (13:03→22:23)
[2018-05-05 15:21] LABS: TROPONIN I < 0.012 ng/mL
--- NOTE | 2018-05-05 15:45 | PDOC CONSULTATION ---
Consultation Consult Date: 05/05/18 Consult reason:: STACI History of Present Illness Admission Date/PCP: 05/04/18 19:21 VALENTINA RAMOS MD History of Present Illness: NETTA RICO is a 68 year old female with history of diabetes, HTN, chronic pain on morphine, neurogenic bladder with persistent UTIs and CKD2. She came to the ER via EMS after having a several syncopal episodes. She says that the syncopal episodes have been going on for 6 months. In the past they have been not too often and she is able to tell when they are coming. Over the past week they have significantly increased to the point of she was having them everyday before coming in. She had one episode that lasted 8 hours. She was putting groceries away and next thing she knows she is half way in the refrigerator. Every time her services dog wakes her up. She claims that there lately has been no signs or symptoms prior to it happening. She denies chest palpitations, chest pain, SOB, any lightheadedness or dizziness. The only thing she notices that is different is after the event her blood sugar is elevated higher than normal. In the ER labs were drawn that showed a potassium of 2.6 and a creatinine of 1.51. Chest x-ray was clear and head CT was normal. UA was positive for possible UTI but patient denied signs and symptoms of a UTI. She was given several doses of potassium and has been started IV fluids. Upon examination she had just had an EEG done. She was feeling better after getting some fluids and some potassium. She was still concerned over the tremors in her hand. Past Medical History Cardiac Medical History: Reports: Coronary Artery Disease - vascular probs pennie legs, Heart Murmur, Hyperlipidemia, Peripheral Vascular Disease Denies: Myocardial Infarction Pulmonary Medical History: Reports: Asthma - severe,neb,inhaler, Bronchitis - in past, Chronic Obstructive Pulmonary Disease (COPD), Sleep Apnea Denies: Pneumonia, Respiratory Failure, Tuberculosis Neurological Medical History: Denies: Seizures Endocrine Medical History: Reports: Diabetes Mellitus Type 2, Hypothyroidism Renal/ Medical History: Denies: Benign Prostatic Hyperplasia GI Medical History: Reports: Gastroesophageal Reflux Disease, Hiatal Hernia Musculoskeltal Medical History: Reports: Arthritis - RA,fibromyalgia, Fibromyalgia, Rheumatoid Arthritis Denies: Systemic Lupus Erythematosus Psychiatric Medical History: Reports: Depression Past Surgical History Past Surgical History: Reports: Cholecystectomy, Gastric Bypass Surgery - Lap Band, post in stomach for lap band , Hysterectomy, Orthopedic Surgery - right hip x3, left knee x1 Social History Smoking Status: Never Smoker Frequency of Alcohol Use: None Hx Recreational Drug Use: No Hx Prescription Drug Abuse: No Family History Parental Family History Reviewed: No Children Family History Reviewed: NA Sibling(s) Family History Reviewed.: NA Medication/Allergy Home Medications: Allopurinol [Zyloprim 300 mg Tablet] 300 mg PO DAILY 05/04/18 Amlodipine Besylate [Norvasc 5 mg Tablet] 5 mg PO DAILY 05/04/18 Baclofen [Baclofen 10 mg Tablet] 10 mg PO Q8 05/04/18 Furosemide [Lasix 40 mg Tablet] 40 mg PO TID 05/04/18 Glimepiride [Amaryl] 2 mg PO BID 05/04/18 Hydrochlorothiazide [Hydrodiuril 25 mg Tablet] 25 mg PO DAILY 05/04/18 Hydroxychloroquine Sulfate [Plaquenil 200 mg Tablet] 200 mg PO BID 05/04/18 Levothyroxine Sodium [Synthroid 0.088 mg Tablet] 0.088 mg PO Q6AM 05/04/18 Metoprolol Succinate [Toprol Xl 25 mg Tab.sr] 25 mg PO DAILY 05/04/18 Montelukast Sodium [Singulair 10 mg Tablet] 10 mg PO DAILY 05/04/18 Morphine Sulfate [Morphine Sulfate ER] 30 mg PO Q8HP PRN 05/04/18 Oxycodone HCl [Roxicodone] 30 mg PO DAILYP PRN 05/04/18 Tramadol HCl [Ultram 50 mg Tablet] 50 mg PO Q12HP PRN 05/04/18 Allergies/Adverse Reactions: ciprofloxacin [From Cipro] Allergy (Severe, Verified 05/28/15 16:20) Anaphylaxis Penicillins Allergy (Severe, Verified 05/28/15 16:20) Anaphylaxis adhesive tape [Adhesive Tape] Adverse Reaction (Severe, Verified 11/23/16 10:51) BLISTERS, SKIN BECOMES RAW indomethacin [From Indocin] Adverse Reaction (Severe, Verified 11/23/16 10:51) CAUSES SWELLING AND INFLAMMATION meperidine HCl [From Demerol] Adverse Reaction (Severe, Verified 11/23/16 10:51) Hallucinations Review of Systems Constitutional: ABSENT: anorexia, chills, fatigue, fever(s), headache(s), weakness Eyes: PRESENT: visual disturbances Ears: ABSENT: hearing changes Nose, Mouth, and Throat: ABSENT: headache(s) Cardiovascular: ABSENT: chest pain, dyspnea on exertion, edema, orthropnea, palpitations Respiratory: ABSENT: cough, dyspnea, sputum Gastrointestinal: PRESENT: diarrhea. ABSENT: abdominal pain, constipation, nausea, vomiting Genitourinary: ABSENT: difficulty urinating, dysuria, nocturia Musculoskeletal: ABSENT: deformity, joint swelling Neurological: PRESENT: memory loss, tremor(s). ABSENT: confusion, convulsions, dizziness, focal weakness, numbness, paresthesias, tingling, weakness Psychiatric: ABSENT: anxiety, depression Physical Exam Vital Signs: Temp Pulse Resp BP Pulse Ox 97.9 F 76 16 125/35 L 95 05/05/18 12:19 05/05/18 14:00 05/05/18 12:19 05/05/18 12:19 05/05/18 12:19 Intake & Output 05/04/18 05/05/18 05/06/18 06:59 06:59 06:59 Intake Total 425 Output Total 1900 Balance -1475 Weight 158.2 kg General appearance: PRESENT: no acute distress, morbidly obese, well-developed, well-nourished Mouth exam: PRESENT: moist, neck supple Neck exam: PRESENT: full ROM. ABSENT: JVD Respiratory exam: PRESENT: clear to auscultation pennie. ABSENT: accessory muscle use, crackles, rales, rhonchi, wheezes Cardiovascular exam: PRESENT: RRR, +S1, +S2 GI/Abdominal exam: PRESENT: soft. ABSENT: ascites, firm, rebound, rigid, tenderness Extremities exam: ABSENT: pedal edema, tenderness, +1 edema, +2 edema Musculoskeletal exam: PRESENT: normal inspection. ABSENT: tenderness Neurological exam: PRESENT: alert, awake, oriented to person, oriented to place , oriented to time, oriented to situation Psychiatric exam: PRESENT: appropriate affect, normal mood Skin exam: PRESENT: dry, intact, warm. ABSENT: cyanosis Results Laboratory Results: 05/05/18 07:35 05/05/18 07:35 05/05/18 05/05/18 05/05/18 07:35 07:35 14:34 WBC 7.1 RBC 3.87 Hgb 12.7 Hct 37.0 MCV 96 MCH 32.7 MCHC 34.3 RDW 14.7 H Plt Count 131 L Seg Neutrophils % 46.8 Lymphocytes % 36.4 Monocytes % 11.7 Eosinophils % 4.5 Basophils % 0.6 Absolute Neutrophils 3.3 Absolute Lymphocytes 2.6 Absolute Monocytes 0.8 Absolute Eosinophils 0.3 Absolute Basophils 0.0 Sodium 142.0 Potassium 3.0 L* Chloride 96 L Carbon Dioxide 36 H Anion Gap 10 BUN 62 H Creatinine 1.38 H Est GFR ( Amer) 46 L Est GFR (Non-Af Amer) 38 L Glucose 142 H Calcium 8.5 Magnesium 2.3 Total Bilirubin 0.3 AST 25 ALT 35 Alkaline Phosphatase 63 Ammonia < 8.7 L Total Protein 5.2 L Albumin 2.9 L 05/05/18 05/05/18 05/05/18 00:20 01:18 07:35 Creatine Kinase 96 CK-MB (CK-2) Cancelled 1.91 Troponin I Cancelled < 0.012 NT-Pro-B Natriuret Pep 05/05/18 05/05/18 05/05/18 07:35 07:35 14:34 Creatine Kinase 109 CK-MB (CK-2) 1.28 Troponin I < 0.012 NT-Pro-B Natriuret Pep 220 Impressions: Chest X-Ray 05/04/18 00:00 IMPRESSION: Limited evaluation of the lung bases. No gross abnormalities appreciated. Consider upright PA and lateral if clinically feasible. Head CT 05/04/18 16:03 IMPRESSION: 1 No significant interval changes since the previous examination dated 04/20/2017. No acute intracranial abnormality. EVIDENCE OF ACUTE STROKE: NO. Assessment & Plan - Diagnosis (1) Acute renal failure Qualifiers: Acute renal failure type: unspecified Is this a current diagnosis for this admission?: Yes Plan: nonoliguric, due to dehydration, other factors include over diuresis. Continue on normal saline with potassium in it. Currently trending better. Ultrasound was done 3 months ago. If creatinine gets worse tomorrow then I will look to order an ultrasound. (2) CKD stage 2 due to type 2 diabetes mellitus Plan: Baseline is 0.9 (3) Diastolic congestive heart failure Qualifiers: Heart failure chronicity: chronic Qualified Code(s): I50.32 - Chronic diastolic (congestive) heart failure Is this a current diagnosis for this admission?: Yes Plan: stable (4) Hypokalemia Is this a current diagnosis for this admission?: Yes Plan: Differential includes diuretics, diarrhea and potassium wasting by the kidney. improving, receiving PO and IV potassium, will look to redraw in a few hours to reassess for the need for more potassium. Hypokalemia could also be the cause for syncope. (5) Neurogenic bladder Is this a current diagnosis for this admission?: Yes Plan: improving according to the patient (6) Syncope Qualifiers: Syncope type: unspecified Qualified Code(s): R55 - Syncope and collapse Is this a current diagnosis for this admission?: Yes Plan: currently being worked up. Differential is hypoglycemia, abnormal rhythm with the heart, UTI, or too much pain medication (7) Tremor Is this a current diagnosis for this admission?: Yes (8) Chronic pain syndrome Is this a current diagnosis for this admission?: Yes Plan: on chronic pain medication (9) Hypertension Qualifiers: Hypertension type: essential hypertension Qualified Code(s): I10 - Essential (primary) hypertension Is this a current diagnosis for this admission?: Yes (10) Type 2 diabetes mellitus Qualifiers: Diabetes mellitus terminal clerk insulin use: unspecified terminal clerk insulin use status Is this a current diagnosis for this admission?: Yes Plan: discussed proper control of diabetes (11) Hyperlipidemia Qualifiers: Hyperlipidemia type: unspecified Qualified Code(s): E78.5 - Hyperlipidemia , unspecified Is this a current diagnosis for this admission?: Yes
[2018-05-05 17:00] LABS: ANION GAP 8 (5-19); BLOOD UREA NITROGEN 56 mg/dL (7-20); CALCIUM 8.4 mg/dL (8.4-10.2); CARBON DIOXIDE 38 mmol/L (22-30); CHLORIDE 96 mmol/L (98-107); GLUCOSE 146 mg/dL (75-110); POTASSIUM 3.1 mmol/L (3.6-5.0); SODIUM 142.4 mmol/L (137-145)
--- NOTE | 2018-05-05 20:30 | PDOC PROGRESS REPORT ---
Subjective Progress Note for:: 05/05/18 Subjective:: Patient seems to be doing better. No recurrence of syncope. Pt is denying any chest arm or neck discomfort. Patient denying any PND, orthopnea. Patient denied any sustained palpitations, dizziness, syncope, near syncope. Patient denying any fever chills. Patient denying any other significant discomfort. Patient is maintaining sinus rhythm. Cardiac monitoring reviewed shows no significant cardiac dysrhythmia. Review of systems: Rest review of systems negative. Medications: Medications have been reviewed. Reason For Visit: SYNCOPAL EPISODE Physical Exam Vital Signs: Temp Pulse Resp BP Pulse Ox 98.4 F 71 17 128/52 H 94 05/05/18 15:11 05/05/18 15:11 05/05/18 15:11 05/05/18 15:11 05/05/18 15:11 Intake & Output 05/04/18 05/05/18 05/06/18 06:59 06:59 06:59 Intake Total 425 473 Output Total 1900 2300 Balance -1475 -1827 Weight 158.2 kg Exam: GENERAL: well-nourished and in no acute distress. Alert and oriented x3 HEAD: Atraumatic, normocephalic. EYES: Pupils equal round and reactive to light, extraocular movements intact, sclera anicteric, conjunctiva are normal. ENT: TMs normal, nares patent, oropharynx clear without exudates. Moist mucous membranes. No oral ulcerations or bleeding gums noted NECK: supple without lymphadenopathy. Trachea is central. No cervical or axillary lymphadenopathy noted. Carotids are 2+, JVD WNL LUNGS: Respiration seems nonlabored, no significant accessory muscle action noted. Few bibasilar fine crackles noted. No wheezes rales or rhonchi noted. No significant dullness noted on percussion. CHEST: Palpation of the chest wall shows no significant chest wall tenderness. 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 ABDOMEN: Soft, no significant tenderness appreciated, normoactive bowel sounds. No guarding, no rebound. No rigidity noted . No masses appreciated. EXTREMITIES: Pedal pulses are 1-2+, no calf tenderness noted. No clubbing or cyanosis. 1-2+ chronic edema noted pedal edema noted NEUROLOGICAL: Focused neurological exam showed no significant neurologic deficit. Normal speech, no focal weakness appreciated. PSYCH: Normal mood, normal affect. Judgment and insight within normal limits. SKIN: No significant ecchymosis, skin is noted to be warm. MUSCULOSKELETAL EXAM: No significant acute joint swelling noted. Results Laboratory Results: 05/05/18 07:35 05/05/18 16:11 05/05/18 05/05/18 05/05/18 07:35 07:35 14:34 WBC 7.1 RBC 3.87 Hgb 12.7 Hct 37.0 MCV 96 MCH 32.7 MCHC 34.3 RDW 14.7 H Plt Count 131 L Seg Neutrophils % 46.8 Lymphocytes % 36.4 Monocytes % 11.7 Eosinophils % 4.5 Basophils % 0.6 Absolute Neutrophils 3.3 Absolute Lymphocytes 2.6 Absolute Monocytes 0.8 Absolute Eosinophils 0.3 Absolute Basophils 0.0 Sodium 142.0 Potassium 3.0 L* Chloride 96 L Carbon Dioxide 36 H Anion Gap 10 BUN 62 H Creatinine 1.38 H Est GFR ( Amer) 46 L Est GFR (Non-Af Amer) 38 L Glucose 142 H Calcium 8.5 Magnesium 2.3 Total Bilirubin 0.3 AST 25 ALT 35 Alkaline Phosphatase 63 Ammonia < 8.7 L Total Protein 5.2 L Albumin 2.9 L Vitamin B12 05/05/18 05/05/18 14:34 16:11 WBC RBC Hgb Hct MCV MCH MCHC RDW Plt Count Seg Neutrophils % Lymphocytes % Monocytes % Eosinophils % Basophils % Absolute Neutrophils Absolute Lymphocytes Absolute Monocytes Absolute Eosinophils Absolute Basophils Sodium 142.4 Potassium 3.1 L Chloride 96 L Carbon Dioxide 38 H Anion Gap 8 BUN 56 H Creatinine 1.15 Est GFR ( Amer) 56 L Est GFR (Non-Af Amer) 47 L Glucose 146 H Calcium 8.4 Magnesium Total Bilirubin AST ALT Alkaline Phosphatase Ammonia Total Protein Albumin Vitamin B12 603.0 05/05/18 05/05/18 05/05/18 00:20 01:18 07:35 Creatine Kinase 96 CK-MB (CK-2) Cancelled 1.91 Troponin I Cancelled < 0.012 NT-Pro-B Natriuret Pep 05/05/18 05/05/18 05/05/18 07:35 07:35 14:34 Creatine Kinase 109 CK-MB (CK-2) 1.28 Troponin I < 0.012 NT-Pro-B Natriuret Pep 220 05/05/18 14:34 Creatine Kinase CK-MB (CK-2) 1.20 Troponin I < 0.012 NT-Pro-B Natriuret Pep Impressions: Chest X-Ray 05/04/18 00:00 IMPRESSION: Limited evaluation of the lung bases. No gross abnormalities appreciated. Consider upright PA and lateral if clinically feasible. Head CT 05/04/18 16:03 IMPRESSION: 1 No significant interval changes since the previous examination dated 04/20/2017. No acute intracranial abnormality. EVIDENCE OF ACUTE STROKE: NO. Assessment & Plan - Diagnosis (1) Diastolic congestive heart failure Qualifiers: Heart failure chronicity: chronic Qualified Code(s): I50.32 - Chronic diastolic (congestive) heart failure Is this a current diagnosis for this admission?: Yes (2) Neurogenic bladder Is this a current diagnosis for this admission?: Yes (3) Sleep apnea Is this a current diagnosis for this admission?: Yes (4) Syncope Qualifiers: Syncope type: unspecified Qualified Code(s): R55 - Syncope and collapse Is this a current diagnosis for this admission?: Yes (5) Type 2 diabetes mellitus Qualifiers: Diabetes mellitus detention insulin use: unspecified detention insulin use status Is this a current diagnosis for this admission?: Yes - Notes Notes: Exact etiology of recurrent syncope not. But continue to monitor patient. Patient will benefit from evaluation of sleep apnea, narcolepsy etc. if this has not been performed in the past. Syncope: Exact etiology not clear. Agree with workup initiated by the horse wrangler which includes 2D echo, carotid duplex and cardiac monitoring. 2D echo and carotid duplex are pending. Cardiac monitoring so far unremarkable. Diastolic heart failure: Patient has a history of it and some chronic edema continue home medications. Hyperlipidemia: Recommend continuing statin therapy. Hypertension: Blood pressure under reasonable control. Blood pressure goal is 140/90 or less. Hypokalemia: This is just borderline with potassium at 3.5. Currently corrected. Rheumatoid arthritis: We will leave management to the specialist. Sleep apnea syndrome: Patient should continue with CPAP therapy. May consider evaluation with the [facility] as an outpatient. - Time Time with patient: 15-25 minutes - CODE STATUS was discussed, patient remains full code. Surrogate decision-maker unchanged. Multiple medical problems were addressed. More than 50% of the time spent coordinating care, discussing management plans with involved caregivers. Management plans discussed with involved personnels. Medical decision making was of moderate to high complexity , patient's has multiple comorbidities.
[2018-05-05] MEDS: MONTELUKAST SODIUM 10 MG TABLET PO SCH (22:23)
[2018-05-06] MEDS: INSULIN LISPRO 100 UNIT/ML 3 ML VIAL SUBCUT PRN ×2 (01:43→12:19)
[2018-05-06 05:07] LABS: ABSOLUTE EOSINOPHILS # (AUTO) 0.3 10^3/uL (0.0-0.6); ABSOLUTE LYMPHOCYTES (AUTO) 2.4 10^3/uL (0.5-4.7); ABSOLUTE MONOCYTES (AUTO) 0.7 10^3/uL (0.1-1.4); ABSOLUTE NEUT (AUTO) 3.6 10^3/uL (1.7-8.2); BASOPHILS % (AUTO) 0.6 % (0-2); HEMOGLOBIN 12.5 g/dL (12.0-15.5); LYMPHOCYTES % (AUTO) 34.5 % (13-45); MEAN CORPUSCULAR HEMOGLOBIN 32.7 pg (27.0-33.4); MEAN CORPUSCULAR HGB CONC 33.9 g/dL (32.0-36.0); MEAN CORPUSCULAR VOLUME 97 fl (80-97); PLATELET COUNT 115 10^3/uL (150-450); RED BLOOD COUNT 3.83 10^6/uL (3.72-5.28); RED CELL DISTRIBUTION WIDTH 14.9 % (11.5-14.0); SEGMENTED NEUTROPHILS % (AUTO) 50.9 % (42-78); TOTAL CELLS COUNTED % (AUTO) 100 %
[2018-05-06] MEDS: LEVOTHYROXINE SODIUM 0.088 MG TABLET PO SCH (05:17)
[2018-05-06] MEDS: BACLOFEN 10 MG TABLET PO SCH ×3 (05:17→21:15)
[2018-05-06] MEDS: POTASSI CL 40 MEQ/NS 1L 1,000 ML IV PRN (05:22)
[2018-05-06 05:36] LABS: ANION GAP 8 (5-19); BLOOD UREA NITROGEN 45 mg/dL (7-20); CALCIUM 8.2 mg/dL (8.4-10.2); CARBON DIOXIDE 34 mmol/L (22-30); CHLORIDE 100 mmol/L (98-107); GLUCOSE 121 mg/dL (75-110); POTASSIUM 3.5 mmol/L (3.6-5.0)
[2018-05-06] MEDS: MORPHINE SULFATE SR 30 MG TABLET PO PRN ×2 (06:49→21:15)
--- NOTE | 2018-05-06 09:35 | PDOC PROGRESS REPORT ---
Subjective Progress Note for:: 05/06/18 Subjective:: Patient is doing much better Patient's denied any chest pain denied any shortness of the breath Patients have a no passing episodes and patients do not sleep too much Had a sleep study done by Dr. herman And suggest only just need a night oxygen Patient's had a still pending MRI is pending echo and carotid Doppler Patient expressed to go home today Patient's understand about the urinary tract infections and wheezing to not go for any antibiotic as per ID recommendations and the patient's denied any urinary symptoms and catheters up to see using the acetic acid solution is works better Reason For Visit: SYNCOPAL EPISODE Physical Exam Vital Signs: Temp Pulse Resp BP Pulse Ox 98.5 F 65 16 125/44 L 94 05/06/18 07:21 05/06/18 07:21 05/06/18 07:21 05/06/18 07:21 05/06/18 07:21 Intake & Output 05/05/18 05/06/18 05/07/18 06:59 06:59 06:59 Intake Total 425 1833 Output Total 1900 4700 Balance -1475 -2137 Weight 158.2 kg 159 kg General appearance: PRESENT: no acute distress, well-developed, well-nourished Head exam: PRESENT: atraumatic, normocephalic Eye exam: PRESENT: conjunctiva pink, EOMI, PERRLA. ABSENT: scleral icterus Ear exam: PRESENT: normal external ear exam Mouth exam: PRESENT: moist, tongue midline Neck exam: PRESENT: full ROM. ABSENT: carotid bruit, JVD, lymphadenopathy, thyromegaly Respiratory exam: PRESENT: clear to auscultation pennie Cardiovascular exam: PRESENT: RRR. ABSENT: diastolic murmur, rubs, systolic murmur Pulses: PRESENT: normal dorsalis pedis pul, +2 pedal pulses bilateral Vascular exam: PRESENT: normal capillary refill GI/Abdominal exam: PRESENT: normal bowel sounds, soft. ABSENT: distended, guarding, mass, organolmegaly, rebound, tenderness Rectal exam: PRESENT: deferred Neurological exam: PRESENT: alert, awake, oriented to person, oriented to place , oriented to time, oriented to situation, CN II-XII grossly intact. ABSENT: motor sensory deficit Psychiatric exam: PRESENT: appropriate affect, normal mood. ABSENT: homicidal ideation, suicidal ideation Skin exam: PRESENT: dry, intact, warm. ABSENT: cyanosis, rash Results Laboratory Results: 05/06/18 04:12 05/06/18 04:12 05/05/18 05/05/18 05/05/18 14:34 14:34 16:11 WBC RBC Hgb Hct MCV MCH MCHC RDW Plt Count Seg Neutrophils % Lymphocytes % Monocytes % Eosinophils % Basophils % Absolute Neutrophils Absolute Lymphocytes Absolute Monocytes Absolute Eosinophils Absolute Basophils Sodium 142.4 Potassium 3.1 L Chloride 96 L Carbon Dioxide 38 H Anion Gap 8 BUN 56 H Creatinine 1.15 Est GFR ( Amer) 56 L Est GFR (Non-Af Amer) 47 L Glucose 146 H Calcium 8.4 Magnesium Ammonia < 8.7 L Vitamin B12 603.0 05/06/18 05/06/18 04:12 04:12 WBC 7.0 RBC 3.83 Hgb 12.5 Hct 37.0 MCV 97 MCH 32.7 MCHC 33.9 RDW 14.9 H Plt Count 115 L Seg Neutrophils % 50.9 Lymphocytes % 34.5 Monocytes % 10.0 Eosinophils % 4.0 Basophils % 0.6 Absolute Neutrophils 3.6 Absolute Lymphocytes 2.4 Absolute Monocytes 0.7 Absolute Eosinophils 0.3 Absolute Basophils 0.0 Sodium 142.0 Potassium 3.5 L Chloride 100 Carbon Dioxide 34 H Anion Gap 8 BUN 45 H Creatinine 0.90 Est GFR ( Amer) > 60 Est GFR (Non-Af Amer) > 60 Glucose 121 H Calcium 8.2 L Magnesium 2.1 Ammonia Vitamin B12 05/05/18 05/05/18 05/05/18 00:20 01:18 07:35 Creatine Kinase 96 CK-MB (CK-2) Cancelled 1.91 Troponin I Cancelled < 0.012 NT-Pro-B Natriuret Pep 05/05/18 05/05/18 05/05/18 07:35 07:35 14:34 Creatine Kinase 109 CK-MB (CK-2) 1.28 Troponin I < 0.012 NT-Pro-B Natriuret Pep 220 05/05/18 05/06/18 14:34 04:12 Creatine Kinase CK-MB (CK-2) 1.20 Troponin I < 0.012 NT-Pro-B Natriuret Pep 599 Impressions: Chest X-Ray 05/04/18 00:00 IMPRESSION: Limited evaluation of the lung bases. No gross abnormalities appreciated. Consider upright PA and lateral if clinically feasible. Head CT 05/04/18 16:03 IMPRESSION: 1 No significant interval changes since the previous examination dated 04/20/2017. No acute intracranial abnormality. EVIDENCE OF ACUTE STROKE: NO. Assessment & Plan - Diagnosis (1) Syncope Qualifiers: Syncope type: unspecified Qualified Code(s): R55 - Syncope and collapse Is this a current diagnosis for this admission?: Yes Plan: Will wait for the all the test reports (2) Hypokalemia Is this a current diagnosis for this admission?: Yes Plan: Replace the potassiums (3) Acute renal failure Qualifiers: Acute renal failure type: unspecified Qualified Code(s): N17.9 - Acute kidney failure, unspecified Is this a current diagnosis for this admission?: Yes Plan: Most likely underlying from dehydration's there was some IV fluid slowly (4) Tremor Is this a current diagnosis for this admission?: Yes Plan: Currently all resolved (5) Type 2 diabetes mellitus Qualifiers: Diabetes mellitus oil heaterman insulin use: unspecified oil heaterman insulin use status Is this a current diagnosis for this admission?: Yes Plan: Will continues a sliding scale and continues to current medication (6) Hyperlipidemia Qualifiers: Hyperlipidemia type: unspecified Qualified Code(s): E78.5 - Hyperlipidemia , unspecified Is this a current diagnosis for this admission?: Yes Plan: All stable continues to monitor (7) Neurogenic bladder Is this a current diagnosis for this admission?: Yes Plan: Patients currently see the urology with the suprapubic catheter (8) Chronic pain syndrome Is this a current diagnosis for this admission?: Yes Plan: Again discussed with the patient about the cut down the morphine but patients currently taking for a long time and currently see a pain management as outpatients (9) Sleep apnea Is this a current diagnosis for this admission?: Yes Plan: According to the patient's patient does not need a CPAP patient just tonight oxygens (10) Diastolic congestive heart failure Qualifiers: Heart failure chronicity: chronic Qualified Code(s): I50.32 - Chronic diastolic (congestive) heart failure Is this a current diagnosis for this admission?: Yes Plan: Will get the 2D echocardiogram todayConsult the cardiology (11) Recurrent urinary tract infection Is this a current diagnosis for this admission?: Yes Plan: Please send the urine for the culture patient's white count is normal remain afebrile we will currently hold the any antibiotic as per ID recommendations (12) Rheumatoid arthritis Qualifiers: Rheumatoid arthritis location: multiple sites Is this a current diagnosis for this admission?: Yes Plan: She is currently taking the biological medications patients currently see a motor racer Dr. Alex (13) Depressed Is this a current diagnosis for this admission?: Yes (14) Hypertension Qualifiers: Hypertension type: essential hypertension Qualified Code(s): I10 - Essential (primary) hypertension Is this a current diagnosis for this admission?: Yes Plan: Continues to current medications - Time Time Spent with patient: 15-24 minutes Anticipated discharge: Home Within: within 24 hours - Inpatient Certification Medical Necessity: Need Close Monitoring Due to Risk of Patient Decompensation - Plan Summary Plan Summary: stable
--- NOTE | 2018-05-06 09:52 | RADIOLOGY REPORT (SQ) ---
EXAM DESCRIPTION: CAROTID DOPPLER COMPLETED DATE/TIME: 05/06/2018 9:39 am REASON FOR STUDY: syncopal COMPARISON: None. TECHNIQUE: Grayscale ultrasound, Doppler velocity and spectra, and color Doppler images acquired of the extra-cranial carotid and vertebral arteries. Images stored on PACS. LIMITATIONS: Typical patient. FINDINGS: RIGHT CAROTID CCA Velocities: Within normal limits. ICA Velocities Peak systolic 1.3 m/s. End diastolic 0.20 m/s. Proximal ICA/CCA peak systolic ratio 1.26. Elevated velocity without spectral finding. LEFT CAROTID CCA Velocities: Elevated velocity without a focal stenosis. ICA Velocities Peak systolic 1.2 m/s. End diastolic 0.15 m/s. Proximal ICA/CCA peak systolic ratio 0.98. Spectra normal. No significant plaque. VERTEBRAL ARTERIES: Antegrade flow. Normal waveforms. SUBCLAVIAN ARTERIES: No finding. OTHER: No other significant finding. IMPRESSION: Velocities elevated in the right ICA and left CCA without corresponding spectral or colo r Doppler findings. RECOMMENDATION: Consider MRA or CTA. COMMENT: Quality ID #[id number]: Velocity criteria are extrapolated from the diameter data as defined by t he Society of Radiologists in Ultrasound Consensus Conference. Radiology 2003: 229; 340-346. TECHNICAL DOCUMENTATION: JOB ID: [id number] [employer]- All Rights Reserved Reading location - IP/workstation name: [facility]
[2018-05-06] MEDS: ENOXAPARIN SODIUM INJ 30 MG/0.3 ML DISP.SYRIN SUBCUT SCH (09:55)
[2018-05-06] MEDS: DOCUSATE SODIUM 100 MG CAPSULE PO SCH ×2 (09:56→17:42)
[2018-05-06] MEDS: AMLODIPINE BESYLATE 5 MG TABLET PO SCH (09:57)
[2018-05-06] MEDS: FUROSEMIDE 40 MG TABLET PO SCH ×2 (09:59→17:43)
[2018-05-06] MEDS: POTASSIUM CHLORIDE 10 MEQ CAPSULE.ER PO SCH ×2 (09:59→17:43)
[2018-05-06] MEDS: HYDROXYCHLOROQUINE SULFATE 200 MG TABLET PO SCH ×2 (09:59→17:43)
[2018-05-06] MEDS: METOPROLOL SUCCINATE 25 MG TAB.SR.24H PO SCH (09:59)
[2018-05-06] MEDS: NYSTATIN TOPICAL POWDER 15 GM TP SCH ×3 (10:00→17:43)
--- NOTE | 2018-05-06 11:28 | XCELERA REPORT ---
[address] [address] Transthoracic Echocardiogram Report Name: NETTA RICO Age: 68 yrs Gender: Female : 1950 Patient Status: Inpatient Patient Location: [address] [place] [address] Study Date: 05/06/2018 08:12 AM Height: 64 in Weight: 348 lb BSA: 2.5 m2 Procedure: A complete two-dimensional transthoracic echocardiogram was performed (2D, M-mode, spectral and color flow Doppler). The study was technically adequate with some images being suboptimal in quality. Reason For Study: synecope Ordering Physician: VALENTINA RAMOS Performed By: Destin Espinal Interpretation Summary The left ventricular ejection fraction is normal. Doppler measurements suggest pseudonormalized left ventricular relaxation, which is associated with grade II/IV or mild to moderate diastolic dysfunction There is borderline concentric left ventricular hypertrophy. The left ventricle is grossly normal size. Wall motion cannot be accurately commented on, but no definite regional wall motion abnormalities noted. The right ventricle is mildly dilated. The right ventricle appears to be hypertrophied The right ventricular systolic function is normal. The right atrium is mildly dilated. The left atrium is mildly dilated. There is a trace amount of mitral regurgitation There is no mitral valve stenosis. There is a mild amount of tricuspid regurgitation There is moderate pulmonary hypertension by echo Best estimated RVSP is approximately 50 mm/Hg. The aortic root is not well visualized but is probably normal size. The inferior vena cava was not well visualized There is no pericardial effusion. MMode/2D Measurements & Calculations RVDd: 3.2 cm LVIDd: 5.2 cmFS: 35.6 % Ao root diam: 3.3 cm IVSd: 0.78 cm LVIDs: 3.3 cmEDV(Teich): 128.9 ml LVPWd: 1.0 cmESV(Teich): 45.5 ml Ao root area: 8.3 cm2 EF(Teich): 64.7 % LA dimension: 4.1 cm LVOT diam: 2.0 cm LVOT area: 3.1 cm2 Doppler Measurements & Calculations MV E max kenton: MV P1/2t max kenton: Ao V2 max: LV V1 max P.3 cm/sec 138.8 cm/sec 157.5 cm/sec 6.0 mmHg MV A max kenton: MV P1/2t: 85.0 msec Ao max PG: LV V1 max: 117.8 cm/sec MVA(P1/2t): 2.6 cm2 9.9 mmHg 122.9 cm/sec MV E/A: 1.1 MV dec slope: SHAHID(V,D): 2.4 cm2 478.7 cm/sec2 MV dec time: 0.25 sec TV V2 max: PA V2 max: 334.1 cm/sec 101.4 cm/sec TV max PG: PA max P.1 mmHg 44.7 mmHg Left Ventricle The left ventricle is grossly normal size. There is borderline concentric left ventricular hypertrophy. The left ventricular ejection fraction is normal. Doppler measurements suggest pseudonormalized left ventricular relaxation, which is associated with grade II/IV or mild to moderate diastolic dysfunction. Wall motion cannot be accurately commented on, but no definite regional wall motion abnormalities noted. Right Ventricle The right ventricle is mildly dilated. The right ventricle appears to be hypertrophied. The right ventricular systolic function is normal. Atria The right atrium is mildly dilated. The left atrium is mildly dilated. Interarterial septum not well visualized and not well dopplered. Cannot comment on ASD/PFO presence. Mitral Valve The mitral valve is grossly normal. There is no mitral valve stenosis. There is a trace amount of mitral regurgitation. Aortic Valve The aortic valve is grossly normal. There is no aortic valve stenosis. No aortic regurgitation is present. Tricuspid Valve The tricuspid valve is not well visualized, but is grossly normal. There is no tricuspid stenosis. There is a mild amount of tricuspid regurgitation. There is moderate pulmonary hypertension by echo. Best estimated RVSP is approximately 50 mm/Hg. Pulmonic Valve The pulmonic valve is not well visualized. Great Vessels The aortic root is not well visualized but is probably normal size. The inferior vena cava was not well visualized. Effusions There is no pericardial effusion. : VALENTINA RAMOS > Yani Rolon
--- NOTE | 2018-05-06 15:32 | PDOC PROGRESS REPORT ---
Subjective Progress Note for:: 05/06/18 Subjective:: Patient was sitting up in the chair in her room at the time of examination. She said that she was feeling better since being admitted. She also remembered that prior to admission she had vomited several times for a few days in a row. Currently she denies SOB, chest pain, N/V/D/C. She also denies dysuria. Reason For Visit: SYNCOPAL EPISODE Physical Exam Vital Signs: Temp Pulse Resp BP Pulse Ox 97.7 F 73 18 125/44 L 98 05/06/18 12:27 05/06/18 14:00 05/06/18 12:27 05/06/18 12:27 05/06/18 12:27 Intake & Output 05/05/18 05/06/18 05/07/18 06:59 06:59 06:59 Intake Total 425 1833 Output Total 1900 4700 Balance -2562 -7664 Weight 158.2 kg 159 kg General appearance: PRESENT: no acute distress, well-developed, well-nourished Mouth exam: PRESENT: moist, neck supple Neck exam: PRESENT: tenderness. ABSENT: JVD Respiratory exam: PRESENT: clear to auscultation pennie. ABSENT: accessory muscle use, crackles, rales, rhonchi, wheezes Cardiovascular exam: PRESENT: RRR, +S1, +S2 GI/Abdominal exam: PRESENT: soft. ABSENT: ascites, firm, rebound, rigid, tenderness Extremities exam: ABSENT: pedal edema, tenderness, +1 edema, +2 edema Musculoskeletal exam: PRESENT: normal inspection. ABSENT: tenderness Neurological exam: PRESENT: alert, awake, oriented to person, oriented to place , oriented to time, oriented to situation Psychiatric exam: PRESENT: appropriate affect, normal mood Skin exam: PRESENT: dry, intact, warm. ABSENT: cyanosis Results Laboratory Results: 05/06/18 04:12 05/06/18 04:12 05/05/18 05/05/18 05/06/18 14:34 16:11 04:12 WBC 7.0 RBC 3.83 Hgb 12.5 Hct 37.0 MCV 97 MCH 32.7 MCHC 33.9 RDW 14.9 H Plt Count 115 L Seg Neutrophils % 50.9 Lymphocytes % 34.5 Monocytes % 10.0 Eosinophils % 4.0 Basophils % 0.6 Absolute Neutrophils 3.6 Absolute Lymphocytes 2.4 Absolute Monocytes 0.7 Absolute Eosinophils 0.3 Absolute Basophils 0.0 Sodium 142.4 Potassium 3.1 L Chloride 96 L Carbon Dioxide 38 H Anion Gap 8 BUN 56 H Creatinine 1.15 Est GFR ( Amer) 56 L Est GFR (Non-Af Amer) 47 L Glucose 146 H Calcium 8.4 Magnesium Vitamin B12 603.0 05/06/18 04:12 WBC RBC Hgb Hct MCV MCH MCHC RDW Plt Count Seg Neutrophils % Lymphocytes % Monocytes % Eosinophils % Basophils % Absolute Neutrophils Absolute Lymphocytes Absolute Monocytes Absolute Eosinophils Absolute Basophils Sodium 142.0 Potassium 3.5 L Chloride 100 Carbon Dioxide 34 H Anion Gap 8 BUN 45 H Creatinine 0.90 Est GFR ( Amer) > 60 Est GFR (Non-Af Amer) > 60 Glucose 121 H Calcium 8.2 L Magnesium 2.1 Vitamin B12 05/05/18 05/05/18 05/05/18 00:20 01:18 07:35 Creatine Kinase 96 CK-MB (CK-2) Cancelled 1.91 Troponin I Cancelled < 0.012 NT-Pro-B Natriuret Pep 05/05/18 05/05/18 05/05/18 07:35 07:35 14:34 Creatine Kinase 109 CK-MB (CK-2) 1.28 Troponin I < 0.012 NT-Pro-B Natriuret Pep 220 05/05/18 05/06/18 14:34 04:12 Creatine Kinase CK-MB (CK-2) 1.20 Troponin I < 0.012 NT-Pro-B Natriuret Pep 599 Impressions: Chest X-Ray 05/04/18 00:00 IMPRESSION: Limited evaluation of the lung bases. No gross abnormalities appreciated. Consider upright PA and lateral if clinically feasible. Head CT 05/04/18 16:03 IMPRESSION: 1 No significant interval changes since the previous examination dated 04/20/2017. No acute intracranial abnormality. EVIDENCE OF ACUTE STROKE: NO. Carotid Doppler Study 05/06/18 00:00 IMPRESSION: Velocities elevated in the right ICA and left CCA without corresponding spectral or color Doppler findings. Assessment & Plan - Diagnosis (1) Acute renal failure Qualifiers: Acute renal failure type: unspecified Qualified Code(s): N17.9 - Acute kidney failure, unspecified Is this a current diagnosis for this admission?: Yes Plan: currently at baseline, at this point and time the patient is safe for discharge from nephrologies stand point. Recommend following up in 14 days with me. (2) CKD stage 2 due to type 2 diabetes mellitus Plan: 0.9 baseline (3) Diastolic congestive heart failure Qualifiers: Heart failure chronicity: chronic Qualified Code(s): I50.32 - Chronic diastolic (congestive) heart failure Is this a current diagnosis for this admission?: Yes Plan: currently stable, recommend stopping the fluids to prevent fluid overload (4) Hypokalemia Is this a current diagnosis for this admission?: Yes Plan: stable on klor con 20mEQ bid (5) Syncope Qualifiers: Syncope type: unspecified Qualified Code(s): R55 - Syncope and collapse Is this a current diagnosis for this admission?: Yes Plan: currently being worked up by Dr. Toscano (6) Tremor Is this a current diagnosis for this admission?: Yes (7) Chronic pain syndrome Is this a current diagnosis for this admission?: Yes (8) Hypertension Qualifiers: Hypertension type: essential hypertension Qualified Code(s): I10 - Essential (primary) hypertension Is this a current diagnosis for this admission?: Yes Plan: stable (9) Type 2 diabetes mellitus Qualifiers: Diabetes mellitus nursing home insulin use: unspecified nursing home insulin use status Is this a current diagnosis for this admission?: Yes Plan: stable (10) Hyperlipidemia Qualifiers: Hyperlipidemia type: unspecified Qualified Code(s): E78.5 - Hyperlipidemia , unspecified Is this a current diagnosis for this admission?: Yes (11) Neurogenic bladder Is this a current diagnosis for this admission?: Yes
--- NOTE | 2018-05-06 19:55 | PDOC PROGRESS REPORT ---
Subjective Progress Note for:: 05/06/18 Subjective:: Patient seems to be doing better with gradual improvement. Pt is denying any chest arm or neck discomfort. Patient denying any PND, orthopnea. Patient denied any sustained palpitations, dizziness, syncope, near syncope. Patient denying any fever chills. Patient denying any other significant discomfort. Patient is maintaining sinus rhythm. Telemetry strips reviewed shows no significant cardiac dysrhythmia. Patient claims compliance with CPAP therapy. Review of systems: Rest review of systems negative. Medications: Medications have been reviewed. Reason For Visit: SYNCOPAL EPISODE Physical Exam Vital Signs: Temp Pulse Resp BP Pulse Ox 98.4 F 77 18 128/50 H 96 05/06/18 15:36 05/06/18 15:38 05/06/18 15:38 05/06/18 15:36 05/06/18 15:38 Intake & Output 05/05/18 05/06/18 05/07/18 06:59 06:59 06:59 Intake Total 425 1833 713 Output Total 1900 4700 1250 Balance -1475 -1433 -537 Weight 158.2 kg 159 kg Exam: GENERAL: well-nourished and in no acute distress. Alert and oriented x3 HEAD: Atraumatic, normocephalic. EYES: Pupils equal round and reactive to light, extraocular movements intact, sclera anicteric, conjunctiva are normal. ENT: TMs normal, nares patent, oropharynx clear without exudates. Moist mucous membranes. No oral ulcerations or bleeding gums noted NECK: supple without lymphadenopathy. Trachea is central. No cervical or axillary lymphadenopathy noted. Carotids are 2+, JVD WNL LUNGS: Respiration seems nonlabored, no significant accessory muscle action noted. Few bibasilar fine crackles are noted. No wheezes rales or rhonchi noted. No significant dullness noted on percussion. CHEST: Palpation of the chest wall shows no significant chest wall tenderness. HEART: [place] [employer], No PSH, 1/6 RICK aortic area, 1/6 weems systolic murmur mitral area, no rubs, no gallops. ABDOMEN: Soft, no significant tenderness appreciated, normoactive bowel sounds. No guarding, no rebound. No rigidity noted . No masses appreciated. EXTREMITIES: Pedal pulses are 1-2+, no calf tenderness noted. No clubbing or cyanosis. 1-2+ chronic pedal edema noted NEUROLOGICAL: Focused neurological exam showed no significant neurologic deficit. Normal speech, no focal weakness appreciated. PSYCH: Normal mood, normal affect. Judgment and insight within normal limits. SKIN: No significant ecchymosis, skin is noted to be warm. MUSCULOSKELETAL EXAM: No significant acute joint swelling noted. Results Laboratory Results: 05/06/18 04:12 05/06/18 04:12 05/06/18 05/06/18 04:12 04:12 WBC 7.0 RBC 3.83 Hgb 12.5 Hct 37.0 MCV 97 MCH 32.7 MCHC 33.9 RDW 14.9 H Plt Count 115 L Seg Neutrophils % 50.9 Lymphocytes % 34.5 Monocytes % 10.0 Eosinophils % 4.0 Basophils % 0.6 Absolute Neutrophils 3.6 Absolute Lymphocytes 2.4 Absolute Monocytes 0.7 Absolute Eosinophils 0.3 Absolute Basophils 0.0 Sodium 142.0 Potassium 3.5 L Chloride 100 Carbon Dioxide 34 H Anion Gap 8 BUN 45 H Creatinine 0.90 Est GFR ( Amer) > 60 Est GFR (Non-Af Amer) > 60 Glucose 121 H Calcium 8.2 L Magnesium 2.1 05/05/18 05/05/18 05/05/18 00:20 01:18 07:35 Creatine Kinase 96 CK-MB (CK-2) Cancelled 1.91 Troponin I Cancelled < 0.012 NT-Pro-B Natriuret Pep 05/05/18 05/05/18 05/05/18 07:35 07:35 14:34 Creatine Kinase 109 CK-MB (CK-2) 1.28 Troponin I < 0.012 NT-Pro-B Natriuret Pep 220 05/05/18 05/06/18 14:34 04:12 Creatine Kinase CK-MB (CK-2) 1.20 Troponin I < 0.012 NT-Pro-B Natriuret Pep 599 EKG Comments: Telemetry shows sinus rhythm without any sustained tachycardia or bradycardia. Impressions: Chest X-Ray 05/04/18 00:00 IMPRESSION: Limited evaluation of the lung bases. No gross abnormalities appreciated. Consider upright PA and lateral if clinically feasible. Head CT 05/04/18 16:03 IMPRESSION: 1 No significant interval changes since the previous examination dated 04/20/2017. No acute intracranial abnormality. EVIDENCE OF ACUTE STROKE: NO. Carotid Doppler Study 05/06/18 00:00 IMPRESSION: Velocities elevated in the right ICA and left CCA without corresponding spectral or color Doppler findings. Assessment & Plan - Diagnosis (1) Diastolic congestive heart failure Qualifiers: Heart failure chronicity: chronic Qualified Code(s): I50.32 - Chronic diastolic (congestive) heart failure Is this a current diagnosis for this admission?: Yes (2) Neurogenic bladder Is this a current diagnosis for this admission?: Yes (3) Sleep apnea Is this a current diagnosis for this admission?: Yes (4) Syncope Qualifiers: Syncope type: unspecified Qualified Code(s): R55 - Syncope and collapse Is this a current diagnosis for this admission?: Yes (5) Type 2 diabetes mellitus Qualifiers: Diabetes mellitus detention insulin use: unspecified treating inspector insulin use status Is this a current diagnosis for this admission?: Yes - Notes Notes: 2D echo results reviewed with the patient. Telemetry results reviewed with the patient. 2D echo shows normal LVEF. Syncope: Exact etiology not clear. So far no clear etiology noted. May consider cardiac event monitoring as an outpatient. One particular thing that I am concerned about is whether patient is just falling asleep because of either medication or underlying narcolepsy with or without cataplexy. Diastolic heart failure: Patient has a history of it and some chronic edema continue home medications. Currently seems compensated. BNP is has been WNL. Hyperlipidemia: Recommend continuing statin therapy. Hypertension: Blood pressure under reasonable control. Blood pressure goal is 140/90 or less. Hypokalemia: Currently stays corrected. Rheumatoid arthritis: We will leave management to the specialist. Sleep apnea syndrome: Patient should continue with CPAP therapy. May consider evaluation with the [facility] as an outpatient. Patient will benefit from physical therapy and improving fitness as a whole. - Time Time with patient: 15-25 minutes - CODE STATUS was discussed, patient remains full code. Surrogate decision-maker unchanged. Multiple medical problems were addressed. More than 50% of the time spent coordinating care, discussing management plans with involved caregivers. Management plans discussed with involved personnels. Medical decision making was of moderate to high complexity , patient's has multiple comorbidities. Medications reviewed and adjusted accordingly: Yes
[2018-05-06] MEDS: MONTELUKAST SODIUM 10 MG TABLET PO SCH (21:15)
[2018-05-07 06:08] LABS: ABSOLUTE BASOPHILS # (AUTO) 0.1 10^3/uL (0.0-0.2); ABSOLUTE EOSINOPHILS # (AUTO) 0.3 10^3/uL (0.0-0.6); ABSOLUTE LYMPHOCYTES (AUTO) 2.2 10^3/uL (0.5-4.7); ABSOLUTE MONOCYTES (AUTO) 0.8 10^3/uL (0.1-1.4); ABSOLUTE NEUT (AUTO) 4.5 10^3/uL (1.7-8.2); EOSINOPHILS % (AUTO) 3.9 % (0-6); HEMATOCRIT 38.6 % (36.0-47.0); LYMPHOCYTES % (AUTO) 27.7 % (13-45); MEAN CORPUSCULAR HEMOGLOBIN 32.4 pg (27.0-33.4); MEAN CORPUSCULAR HGB CONC 33.7 g/dL (32.0-36.0); MEAN CORPUSCULAR VOLUME 96 fl (80-97); MONOCYTES % (AUTO) 9.6 % (3-13); PLATELET COUNT 115 10^3/uL (150-450); RED BLOOD COUNT 4.01 10^6/uL (3.72-5.28); RED CELL DISTRIBUTION WIDTH 14.9 % (11.5-14.0); SEGMENTED NEUTROPHILS % (AUTO) 57.8 % (42-78); TOTAL CELLS COUNTED % (AUTO) 100 %; WHITE BLOOD COUNT 7.9 10^3/uL (4.0-10.5)
[2018-05-07] MEDS: BACLOFEN 10 MG TABLET PO SCH ×3 (07:53→21:09)
[2018-05-07] MEDS: LEVOTHYROXINE SODIUM 0.088 MG TABLET PO SCH (07:53)
[2018-05-07] MEDS: METOPROLOL SUCCINATE 25 MG TAB.SR.24H PO SCH (09:43)
[2018-05-07] MEDS: AMLODIPINE BESYLATE 5 MG TABLET PO SCH (09:43)
[2018-05-07] MEDS: FUROSEMIDE 40 MG TABLET PO SCH ×2 (09:43→17:07)
[2018-05-07] MEDS: POTASSIUM CHLORIDE 10 MEQ CAPSULE.ER PO SCH ×2 (09:44→17:07)
[2018-05-07] MEDS: DOCUSATE SODIUM 100 MG CAPSULE PO SCH ×2 (09:45→17:06)
[2018-05-07] MEDS: ENOXAPARIN SODIUM INJ 30 MG/0.3 ML DISP.SYRIN SUBCUT SCH (09:46)
[2018-05-07] MEDS: NYSTATIN TOPICAL POWDER 15 GM TP SCH ×3 (10:17→17:10)
[2018-05-07] MEDS: HYDROXYCHLOROQUINE SULFATE 200 MG TABLET PO SCH ×2 (10:20→17:07)
[2018-05-07] MEDS: INSULIN LISPRO 100 UNIT/ML 3 ML VIAL SUBCUT PRN ×2 (13:06→21:09)
--- NOTE | 2018-05-07 15:56 | PDOC PROGRESS REPORT ---
Subjective Progress Note for:: 05/07/18 Subjective:: Patient seen by the bedside, morbidly obese, chronic indwelling Sales catheter, admitted for management of syncope Reason For Visit: SYNCOPAL EPISODE Physical Exam Vital Signs: Temp Pulse Resp BP Pulse Ox 98.2 F 75 18 150/59 H 97 05/07/18 11:30 05/07/18 14:00 05/07/18 11:30 05/07/18 11:30 05/07/18 11:30 Intake & Output 05/06/18 05/07/18 05/08/18 06:59 06:59 06:59 Intake Total 1833 1531 Output Total 4700 0128 Balance -9410 -590 Weight 159 kg 161 kg General appearance: PRESENT: no acute distress Eye exam: PRESENT: PERRLA Respiratory exam: PRESENT: clear to auscultation pennie Cardiovascular exam: PRESENT: +S1, +S2 GI/Abdominal exam: PRESENT: soft Neurological exam: PRESENT: alert Results Laboratory Results: 05/07/18 05:26 05/06/18 04:12 05/07/18 05/07/18 05:26 05:26 WBC 7.9 RBC 4.01 Hgb 13.0 Hct 38.6 MCV 96 MCH 32.4 MCHC 33.7 RDW 14.9 H Plt Count 115 L Seg Neutrophils % 57.8 Lymphocytes % 27.7 Monocytes % 9.6 Eosinophils % 3.9 Basophils % 1.0 Absolute Neutrophils 4.5 Absolute Lymphocytes 2.2 Absolute Monocytes 0.8 Absolute Eosinophils 0.3 Absolute Basophils 0.1 Magnesium 2.1 05/05/18 05/05/18 05/05/18 00:20 01:18 07:35 Creatine Kinase 96 CK-MB (CK-2) Cancelled 1.91 Troponin I Cancelled < 0.012 NT-Pro-B Natriuret Pep 05/05/18 05/05/18 05/05/18 07:35 07:35 14:34 Creatine Kinase 109 CK-MB (CK-2) 1.28 Troponin I < 0.012 NT-Pro-B Natriuret Pep 220 05/05/18 05/06/18 05/07/18 14:34 04:12 05:26 Creatine Kinase CK-MB (CK-2) 1.20 Troponin I < 0.012 NT-Pro-B Natriuret Pep 599 542 Impressions: Chest X-Ray 05/04/18 00:00 IMPRESSION: Limited evaluation of the lung bases. No gross abnormalities appreciated. Consider upright PA and lateral if clinically feasible. Head CT 05/04/18 16:03 IMPRESSION: 1 No significant interval changes since the previous examination dated 04/20/2017. No acute intracranial abnormality. EVIDENCE OF ACUTE STROKE: NO. Carotid Doppler Study 05/06/18 00:00 IMPRESSION: Velocities elevated in the right ICA and left CCA without corresponding spectral or color Doppler findings. Assessment & Plan - Diagnosis (1) Syncope Is this a current diagnosis for this admission?: Yes (3) Diastolic congestive heart failure Qualifiers: Heart failure chronicity: chronic Qualified Code(s): I50.32 - Chronic diastolic (congestive) heart failure Is this a current diagnosis for this admission?: Yes (4) Syncope Qualifiers: Syncope type: unspecified Qualified Code(s): R55 - Syncope and collapse Is this a current diagnosis for this admission?: Yes
--- NOTE | 2018-05-07 17:05 | PDOC PROGRESS REPORT ---
Subjective Progress Note for:: 05/07/18 Subjective:: Patient seems to be doing better with gradual improvement. Pt is denying any chest arm or neck discomfort. Patient denying any PND, orthopnea. Patient denied any sustained palpitations, dizziness, syncope, near syncope. Patient denying any fever chills. Patient denying any other significant discomfort. Patient is maintaining sinus rhythm. Telemetry strips reviewed shows no significant cardiac dysrhythmia. Nephrology note was evaluated. Labs shows that patient did not have a chemistry panel performed since admission. Review of systems: Rest review of systems negative. Medications: Medications have been reviewed. Reason For Visit: SYNCOPAL EPISODE Physical Exam Vital Signs: Temp Pulse Resp BP Pulse Ox 98.4 F 80 18 149/66 H 95 05/07/18 15:18 05/07/18 15:18 05/07/18 15:18 05/07/18 15:18 05/07/18 15:18 Intake & Output 05/06/18 05/07/18 05/08/18 06:59 06:59 06:59 Intake Total 1833 1531 Output Total 4700 2500 Balance -2867 -969 Weight 159 kg 161 kg Exam: GENERAL: well-nourished and in no acute distress. Alert and oriented x3 HEAD: Atraumatic, normocephalic. EYES: Pupils equal round and reactive to light, extraocular movements intact, sclera anicteric, conjunctiva are normal. ENT: TMs normal, nares patent, oropharynx clear without exudates. Moist mucous membranes. No oral ulcerations or bleeding gums noted NECK: supple without lymphadenopathy. Trachea is central. No cervical or axillary lymphadenopathy noted. Carotids are 2+, JVD WNL LUNGS: Respiration seems nonlabored, no significant accessory muscle action noted. Bibasilar fine crackles noted at the extreme base. No wheezes rales or rhonchi noted. No significant dullness noted on percussion. CHEST: Palpation of the chest wall shows no significant chest wall tenderness. 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 ABDOMEN: Soft, no significant tenderness appreciated, normoactive bowel sounds. No guarding, no rebound. No rigidity noted . No masses appreciated. EXTREMITIES: Pedal pulses are 1-2+, no calf tenderness noted. No clubbing or cyanosis. 1-2+ chronic pedal edema noted NEUROLOGICAL: Focused neurological exam showed no significant neurologic deficit. Normal speech, no focal weakness appreciated. PSYCH: Normal mood, normal affect. Judgment and insight within normal limits. SKIN: No significant ecchymosis, skin is noted to be warm. MUSCULOSKELETAL EXAM: No significant acute joint swelling noted. Results Laboratory Results: 05/07/18 05:26 05/06/18 04:12 05/07/18 05/07/18 05:26 05:26 WBC 7.9 RBC 4.01 Hgb 13.0 Hct 38.6 MCV 96 MCH 32.4 MCHC 33.7 RDW 14.9 H Plt Count 115 L Seg Neutrophils % 57.8 Lymphocytes % 27.7 Monocytes % 9.6 Eosinophils % 3.9 Basophils % 1.0 Absolute Neutrophils 4.5 Absolute Lymphocytes 2.2 Absolute Monocytes 0.8 Absolute Eosinophils 0.3 Absolute Basophils 0.1 Magnesium 2.1 05/05/18 05/05/18 05/05/18 00:20 01:18 07:35 Creatine Kinase 96 CK-MB (CK-2) Cancelled 1.91 Troponin I Cancelled < 0.012 NT-Pro-B Natriuret Pep 05/05/18 05/05/18 05/05/18 07:35 07:35 14:34 Creatine Kinase 109 CK-MB (CK-2) 1.28 Troponin I < 0.012 NT-Pro-B Natriuret Pep 220 05/05/18 05/06/18 05/07/18 14:34 04:12 05:26 Creatine Kinase CK-MB (CK-2) 1.20 Troponin I < 0.012 NT-Pro-B Natriuret Pep 599 542 Impressions: Chest X-Ray 05/04/18 00:00 IMPRESSION: Limited evaluation of the lung bases. No gross abnormalities appreciated. Consider upright PA and lateral if clinically feasible. Head CT 05/04/18 16:03 IMPRESSION: 1 No significant interval changes since the previous examination dated 04/20/2017. No acute intracranial abnormality. EVIDENCE OF ACUTE STROKE: NO. Carotid Doppler Study 05/06/18 00:00 IMPRESSION: Velocities elevated in the right ICA and left CCA without corresponding spectral or color Doppler findings. Assessment & Plan - Diagnosis (1) Diastolic congestive heart failure Qualifiers: Heart failure chronicity: chronic Qualified Code(s): I50.32 - Chronic diastolic (congestive) heart failure Is this a current diagnosis for this admission?: Yes (2) Neurogenic bladder Is this a current diagnosis for this admission?: Yes (3) Sleep apnea Is this a current diagnosis for this admission?: Yes (4) Syncope Qualifiers: Syncope type: unspecified Qualified Code(s): R55 - Syncope and collapse Is this a current diagnosis for this admission?: Yes (5) Type 2 diabetes mellitus Qualifiers: Diabetes mellitus skilled nursing insulin use: unspecified 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 Patient will need event monitoring as an outpatient. Patient may also benefit from a M SLT testing to rule out narcolepsy/cataplexy or other hypersomnia disorder but may need to come off pain medications for that. Diastolic heart failure: Patient has a history of it and some chronic edema continue home medications. Hyperlipidemia: Recommend continuing statin therapy. Hypertension: Blood pressure under reasonable control. Blood pressure goal is 140/90 or less. Hypokalemia: This is just borderline with potassium at 3.5. Continue replacement. Will check a chemistry panel. Rheumatoid arthritis: We will leave management to the specialist. Sleep apnea syndrome: Patient should continue with CPAP therapy. May consider evaluation with the MSLT as an outpatient. - Time Time with patient: 15-25 minutes - CODE STATUS was discussed, patient remains full code. Surrogate decision-maker unchanged. Multiple medical problems were addressed. More than 50% of the time spent coordinating care, discussing management plans with involved caregivers. Management plans discussed with involved personnels. Medical decision making was of moderate to high complexity , patient's has multiple comorbidities. Medications reviewed and adjusted accordingly: Yes
[2018-05-07] MEDS: MORPHINE SULFATE SR 30 MG TABLET PO PRN (17:11)
[2018-05-07 17:55] LABS: ANION GAP 7 (5-19); BLOOD UREA NITROGEN 22 mg/dL (7-20); CALCIUM 8.4 mg/dL (8.4-10.2); CARBON DIOXIDE 29 mmol/L (22-30); CHLORIDE 105 mmol/L (98-107); GLUCOSE 197 mg/dL (75-110); SODIUM 141.4 mmol/L (137-145)
[2018-05-07] MEDS: MONTELUKAST SODIUM 10 MG TABLET PO SCH (21:09)
[2018-05-08] MEDS: MORPHINE SULFATE SR 30 MG TABLET PO PRN ×3 (01:10→18:11)
[2018-05-08] MEDS: LORAZEPAM 1 MG TABLET PO PRN (02:44)
[2018-05-08] MEDS: BACLOFEN 10 MG TABLET PO SCH ×3 (05:02→22:57)
[2018-05-08] MEDS: LEVOTHYROXINE SODIUM 0.088 MG TABLET PO SCH (05:02)
[2018-05-08] MEDS: DOCUSATE SODIUM 100 MG CAPSULE PO SCH ×2 (09:21→18:13)
[2018-05-08] MEDS: HYDROXYCHLOROQUINE SULFATE 200 MG TABLET PO SCH ×2 (09:26→18:16)
[2018-05-08] MEDS: FUROSEMIDE 40 MG TABLET PO SCH ×2 (09:27→18:13)
[2018-05-08] MEDS: POTASSIUM CHLORIDE 10 MEQ CAPSULE.ER PO SCH ×2 (09:27→18:14)
[2018-05-08] MEDS: METOPROLOL SUCCINATE 25 MG TAB.SR.24H PO SCH (09:28)
[2018-05-08] MEDS: AMLODIPINE BESYLATE 5 MG TABLET PO SCH (09:28)
[2018-05-08] MEDS: ENOXAPARIN SODIUM INJ 30 MG/0.3 ML DISP.SYRIN SUBCUT SCH (09:32)
[2018-05-08] MEDS ORDERED: MORPHINE SULFATE SR 30 MG TABLET PO PRN (12:50)
[2018-05-08] MEDS ORDERED: ALLOPURINOL 300 MG TABLET PO SCH (14:00)
[2018-05-08] MEDS ORDERED: FLUCONAZOLE 100 MG TABLET PO ONE (14:00)
[2018-05-08] MEDS: TRAMADOL HCL 50 MG TABLET PO PRN (14:51)
--- NOTE | 2018-05-08 15:27 | PDOC PROGRESS REPORT ---
Subjective Progress Note for:: 05/08/18 Subjective:: Patient is very upset because of opioid, the short acting was on hold, she was going to sign AMA just because of that, she complained of yeast infection, Reason For Visit: SYNCOPAL EPISODE Physical Exam Vital Signs: Temp Pulse Resp BP Pulse Ox 97.8 F 77 20 138/69 H 96 05/08/18 11:05 05/08/18 11:05 05/08/18 11:05 05/08/18 11:05 05/08/18 11:05 Intake & Output 05/07/18 05/08/18 05/09/18 06:59 06:59 06:59 Intake Total 1531 769 Output Total 7110 5715 Balance -339 -2526 Weight 161 kg 172.7 kg General appearance: PRESENT: no acute distress Eye exam: PRESENT: PERRLA Respiratory exam: PRESENT: clear to auscultation pennie Cardiovascular exam: PRESENT: +S1, +S2 Neurological exam: PRESENT: alert Results Laboratory Results: 05/07/18 05:26 05/07/18 17:30 05/07/18 17:30 Sodium 141.4 Potassium 4.0 Chloride 105 Carbon Dioxide 29 Anion Gap 7 BUN 22 H Creatinine 0.67 Est GFR ( Amer) > 60 Est GFR (Non-Af Amer) > 60 Glucose 197 H Calcium 8.4 05/05/18 05/05/18 05/05/18 00:20 01:18 07:35 Creatine Kinase 96 CK-MB (CK-2) Cancelled 1.91 Troponin I Cancelled < 0.012 NT-Pro-B Natriuret Pep 05/05/18 05/05/18 05/05/18 07:35 07:35 14:34 Creatine Kinase 109 CK-MB (CK-2) 1.28 Troponin I < 0.012 NT-Pro-B Natriuret Pep 220 05/05/18 05/06/18 05/07/18 14:34 04:12 05:26 Creatine Kinase CK-MB (CK-2) 1.20 Troponin I < 0.012 NT-Pro-B Natriuret Pep 599 542 Impressions: Chest X-Ray 05/04/18 00:00 IMPRESSION: Limited evaluation of the lung bases. No gross abnormalities appreciated. Consider upright PA and lateral if clinically feasible. Head CT 05/04/18 16:03 IMPRESSION: 1 No significant interval changes since the previous examination dated 04/20/2017. No acute intracranial abnormality. EVIDENCE OF ACUTE STROKE: NO. Carotid Doppler Study 05/06/18 00:00 IMPRESSION: Velocities elevated in the right ICA and left CCA without corresponding spectral or color Doppler findings. Assessment & Plan - Diagnosis (1) Syncope Is this a current diagnosis for this admission?: Yes (2) Diastolic congestive heart failure Qualifiers: Heart failure chronicity: chronic Qualified Code(s): I50.32 - Chronic diastolic (congestive) heart failure Is this a current diagnosis for this admission?: Yes - Plan Summary Plan Summary: I try to convince not to leave AMA she was restarted back on the opioid, she is advised to wait to see Dr. Toscano tomorrow, he is the regular physician and she is more familiar wit her
--- NOTE | 2018-05-08 17:21 | PDOC PROGRESS REPORT ---
Subjective Progress Note for:: 05/08/18 Subjective:: Patient seems to be doing better with gradual improvement. Pt is denying any chest arm or neck discomfort. Patient denying any PND, orthopnea. Patient denied any sustained palpitations, dizziness, syncope, near syncope. Patient denying any fever chills. Patient denying any other significant discomfort. Patient today upset and wants to be discharged home. Discussed that hospitalist will do that. Patient is maintaining sinus rhythm. Telemetry strips reviewed shows no significant cardiac dysrhythmia. Nephrology note was evaluated. Review of systems: Rest review of systems negative. Medications: Medications have been reviewed. Reason For Visit: SYNCOPAL EPISODE Physical Exam Vital Signs: Temp Pulse Resp BP Pulse Ox 97.6 F 69 20 132/56 H 95 05/08/18 15:10 05/08/18 15:10 05/08/18 15:10 05/08/18 15:10 05/08/18 15:10 Intake & Output 05/07/18 05/08/18 05/09/18 06:59 06:59 06:59 Intake Total 1531 769 620 Output Total 2500 3575 2100 Balance -969 -1266 -1480 Weight 161 kg 172.7 kg Exam: GENERAL: well-nourished and in no acute distress. Alert and oriented x3 HEAD: Atraumatic, normocephalic. EYES: Pupils equal round and reactive to light, extraocular movements intact, sclera anicteric, conjunctiva are normal. ENT: TMs normal, nares patent, oropharynx clear without exudates. Moist mucous membranes. No oral ulcerations or bleeding gums noted NECK: supple without lymphadenopathy. Trachea is central. No cervical or axillary lymphadenopathy noted. Carotids are 2+, JVD WNL LUNGS: Respiration seems nonlabored, no significant accessory muscle action noted. Breath sounds clear to auscultation bilaterally and equal noted. No wheezes rales or rhonchi noted. No significant dullness noted on percussion. CHEST: Palpation of the chest wall shows no significant chest wall tenderness. 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 ABDOMEN: Soft, no significant tenderness appreciated, normoactive bowel sounds. No guarding, no rebound. No rigidity noted . No masses appreciated. EXTREMITIES: Pedal pulses are 1-2+, no calf tenderness noted. No clubbing or cyanosis. 1-2 + chronic pedal edema noted NEUROLOGICAL: Focused neurological exam showed no significant neurologic deficit. Normal speech, no focal weakness appreciated. PSYCH: Normal mood, normal affect. Judgment and insight within normal limits. SKIN: No significant ecchymosis, skin is noted to be warm. MUSCULOSKELETAL EXAM: No significant acute joint swelling noted. Results Laboratory Results: 05/07/18 05:26 05/07/18 17:30 05/07/18 17:30 Sodium 141.4 Potassium 4.0 Chloride 105 Carbon Dioxide 29 Anion Gap 7 BUN 22 H Creatinine 0.67 Est GFR ( Amer) > 60 Est GFR (Non-Af Amer) > 60 Glucose 197 H Calcium 8.4 05/05/18 05/05/18 05/05/18 00:20 01:18 07:35 Creatine Kinase 96 CK-MB (CK-2) Cancelled 1.91 Troponin I Cancelled < 0.012 NT-Pro-B Natriuret Pep 05/05/18 05/05/18 05/05/18 07:35 07:35 14:34 Creatine Kinase 109 CK-MB (CK-2) 1.28 Troponin I < 0.012 NT-Pro-B Natriuret Pep 220 05/05/18 05/06/18 05/07/18 14:34 04:12 05:26 Creatine Kinase CK-MB (CK-2) 1.20 Troponin I < 0.012 NT-Pro-B Natriuret Pep 599 542 EKG Comments: Telemetry strips reviewed. No significant arrhythmias are noted. Impressions: Chest X-Ray 05/04/18 00:00 IMPRESSION: Limited evaluation of the lung bases. No gross abnormalities appreciated. Consider upright PA and lateral if clinically feasible. Head CT 05/04/18 16:03 IMPRESSION: 1 No significant interval changes since the previous examination dated 04/20/2017. No acute intracranial abnormality. EVIDENCE OF ACUTE STROKE: NO. Carotid Doppler Study 05/06/18 00:00 IMPRESSION: Velocities elevated in the right ICA and left CCA without corresponding spectral or color Doppler findings. 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 Patient will need event monitoring as an outpatient. Patient may also benefit from a MSLT testing to rule out narcolepsy /cataplexy or other hypersomnia disorder but may need to come off pain medications for that. Possible pain medication overdose causing syncope cannot be ruled out. Diastolic heart failure: Patient has a history of it and some chronic edema continue home medications. Hyperlipidemia: Recommend continuing statin therapy. Hypertension: Blood pressure under reasonable control. Blood pressure goal is 140/90 or less. Hypokalemia: This has been corrected. Rheumatoid arthritis: We will leave management to the specialist. Sleep apnea syndrome: Patient should continue with CPAP therapy. May consider evaluation with the MSLT as an outpatient. Patient wants to be discharged but told that ultimate discharge will be decided by call or contact centre manager. Patient stable from cardiac standpoint to be discharged. Will sign off please reconsult if needed. - Time Time with patient: 15-25 minutes - CODE STATUS was discussed, patient remains full code. Surrogate decision-maker unchanged. Multiple medical problems were addressed. More than 50% of the time spent coordinating care, discussing management plans with involved caregivers. Management plans discussed with involved personnels. Medical decision making was of moderate to high complexity , patient's has multiple comorbidities. Medications reviewed and adjusted accordingly: Yes
[2018-05-08] MEDS: GLIMEPIRIDE 4 MG TABLET PO SCH (18:11)
[2018-05-08] MEDS: NYSTATIN CREAM 15 GM TP SCH ×2 (18:15→18:24)
[2018-05-08] MEDS: NYSTATIN TOPICAL POWDER 15 GM TP SCH ×2 (18:20→18:21)
[2018-05-08] MEDS: MONTELUKAST SODIUM 10 MG TABLET PO SCH (22:57)
[2018-05-09] MEDS: MORPHINE SULFATE SR 30 MG TABLET PO PRN ×2 (02:03→11:23)
[2018-05-09] MEDS: TRAMADOL HCL 50 MG TABLET PO PRN (03:13)
[2018-05-09] MEDS: BACLOFEN 10 MG TABLET PO SCH (05:55)
[2018-05-09] MEDS: LEVOTHYROXINE SODIUM 0.088 MG TABLET PO SCH (05:55)
[2018-05-09] MEDS: GLIMEPIRIDE 4 MG TABLET PO SCH (09:18)
[2018-05-09] MEDS: HYDROXYCHLOROQUINE SULFATE 200 MG TABLET PO SCH (09:18)
[2018-05-09] MEDS: AMLODIPINE BESYLATE 5 MG TABLET PO SCH (09:18)
[2018-05-09] MEDS: DOCUSATE SODIUM 100 MG CAPSULE PO SCH (09:19)
[2018-05-09] MEDS: NYSTATIN CREAM 15 GM TP SCH (09:19)
[2018-05-09] MEDS: POTASSIUM CHLORIDE 10 MEQ CAPSULE.ER PO SCH (09:19)
[2018-05-09] MEDS: METOPROLOL SUCCINATE 25 MG TAB.SR.24H PO SCH (09:19)
[2018-05-09] MEDS: NYSTATIN TOPICAL POWDER 15 GM TP SCH (09:20)
[2018-05-09] MEDS: ENOXAPARIN SODIUM INJ 30 MG/0.3 ML DISP.SYRIN SUBCUT SCH (09:23)
[2018-05-09] MEDS: FUROSEMIDE 40 MG TABLET PO SCH (09:23)
[2018-05-09 12:08] VITALS: BP 135/56
--- NOTE | 2018-05-09 13:39 | PDOC DISCHARGE SUMMARY ---
General - Admit/Disc Date/PCP Admission Date/Primary Care Provider: 05/04/18 19:21 VALENTINA RAMOS MD Discharge Date: 05/09/18 - Discharge Diagnosis (1) Syncope Is this a current diagnosis for this admission?: Yes Summary: Most likely from the medications but patients to do further evaluations with the neurology as outpatients for carotid disease and for the need a cardiac events monitor (2) Hypokalemia Is this a current diagnosis for this admission?: Yes Summary: Continues to potassium supplements (3) Acute renal failure Is this a current diagnosis for this admission?: Yes Summary: Currently all resolved (4) Tremor Is this a current diagnosis for this admission?: Yes Summary: Currently all resolved (5) Type 2 diabetes mellitus Is this a current diagnosis for this admission?: Yes Summary: Currently stable (6) Hyperlipidemia Is this a current diagnosis for this admission?: Yes Summary: Continues to current medication (7) Neurogenic bladder Is this a current diagnosis for this admission?: Yes Summary: Status post suprapubic catheter patients follow with the urologist (8) Chronic pain syndrome Is this a current diagnosis for this admission?: Yes Summary: Very external discussed with the patient's needs to follow with the pain management reduces some pain medications (9) Sleep apnea Is this a current diagnosis for this admission?: Yes Summary: Patient's needed outpatients neurology evaluations for possible rule out narcolepsy (10) Diastolic congestive heart failure Is this a current diagnosis for this admission?: Yes Summary: Currently all stable (11) Recurrent urinary tract infection Is this a current diagnosis for this admission?: Yes Summary: Patient is currently completely asymptomatic's does not require any antibiotic (12) Rheumatoid arthritis Is this a current diagnosis for this admission?: Yes Summary: Patients currently see a Dr. Alex (13) Depressed Is this a current diagnosis for this admission?: Yes (14) Hypertension Is this a current diagnosis for this admission?: Yes Summary: Currently all stable - Additional Information Resuscitation Status: Full Code Discharge Diet: Diabetic Discharge Activity: Activity As Tolerated, Balance Activity w/Rest Prescriptions: Potassium Chloride [Klor-Con 10 Meq Capsule ER] 20 meq PO BID #60 capsule.er Home Medications: Allopurinol [Zyloprim 300 mg Tablet] 300 mg PO DAILY 05/04/18 Amlodipine Besylate [Norvasc 5 mg Tablet] 5 mg PO DAILY 05/04/18 Baclofen [Baclofen 10 mg Tablet] 10 mg PO Q8 05/04/18 Furosemide [Lasix 40 mg Tablet] 40 mg PO TID 05/04/18 Glimepiride [Amaryl] 2 mg PO BID 05/04/18 Hydroxychloroquine Sulfate [Plaquenil 200 mg Tablet] 200 mg PO BID 05/04/18 Levothyroxine Sodium [Synthroid 0.088 mg Tablet] 0.088 mg PO Q6AM 05/04/18 Metoprolol Succinate [Toprol Xl 25 mg Tab.sr] 25 mg PO DAILY 05/04/18 Montelukast Sodium [Singulair 10 mg Tablet] 10 mg PO DAILY 05/04/18 Morphine Sulfate [Morphine Sulfate ER] 30 mg PO Q8HP PRN 05/04/18 Potassium Chloride [Klor-Con 10 Meq Capsule ER] 20 meq PO BID #60 capsule.er History of Present Illness History of Present Illness: NETTA RICO is a 68 year old female This is a 68-year-old female with the significant history of rheumatoid arthritis currently on the biological injections to the silk 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 every 2 weeks with the history of the chronic kidney diseaseHistory of the diastolic congestive heart failure history of the hypertension's type 2 diabetes mellitus sleep apnea chronic pain syndromes and patients pretty much immobile due to the significant hip issuesWith the recurrent urinary tract infections status post suprapubic catheter due to the neurological bladder currently see a urology and infectious disease and seen by the neurology last year because of excessive sleepiness and suggest most likely related to the pain medications and multiple other comorbidity came to the emergency department because of the complaining of for passing out episode thisGoing on for the last several months and according to the patient's when suddenly she passed out and do not know that she is in when she wake up through her dog Patient's denied any chest pain denied any shortness of the breath Patient is complaining some twitching on her upper extremities Patient's currently taking the morphine 3 times a day to the pain management and taking for almost more than 20 years and also taking the oxycodone once a day which he reduce Patient's also seen by infectious disease and suggest that no need for antibiotic unless and unless patient is symptomatic from the UTI due to the multiple urine cultures come back positive and multiple antibiotic use in the past and patient's high risk for the resistanceAnd patient have a suprapubic catheter is always bacteremia is present but asymptomatic bacteremia do not need to treat it Patient also seen Dr. Collins for chronic kidney disease pt also see a Dr. Farris the cardiology Patient also see a neurosurgery Dr. Lopez for the occipital neuralgia and chronic neck pain and back pain I saw the patient on the floor patient's denied any chest pain denied any shortness of the breath denied any abdominal pain just concern about twitching on the especially upper extremities In the emergency department patient'sPotassium is 2.6 was replaced with the IV and p.o. potassiums Hospital Course Hospital Course: This is a 68-year-old females with the multiple medical problem as above came to the emergency department with a questionable syncopal episode and excessive sleepiness patient initial workup is all negatives including the CT of the head was all negative and a cardiac workup is all stable Recent was also hypokalemia with replace the potassiums Patient was some chronic kidney diseaseSeen by Dr. Collins is all stable Patient also seen by cardiology's and suggest follow outpatients court recording monitor Patient's otherwise underwent for the ultrasound of the carotid which require MRI of the neck but patient unable to fit in the hospital MRI need outpatient CT angiogram with the kidney function is get better Patient's very anxious to go homes patients does not have any soft further episodes denied any fever no chills white count is normal electrolytes is all stable patients wants to go home and will discharge home follow outpatients neurologyFor further carotid workup and also outpatients cardiology Patient already seen the infectious disease and the urology chronic suprapubic catheter and does not require antibiotic per the recommendations unless patient is symptomatic and patient is currently completely asymptomatic from urine cultures This with the patient's current daughter about patient's current condition and follow with the pain management to reduce the pain medications which patient hesitate to do it without asking the pain management Physical Exam Vital Signs: Temp Pulse Resp BP Pulse Ox 97.8 F 56 L 20 135/56 H 93 05/09/18 12:00 05/09/18 12:00 05/09/18 12:00 05/09/18 12:05/09/18 12:00 Intake & Output 05/08/18 05/09/18 05/10/18 06:59 06:59 06:59 Intake Total 769 856 Output Total 5248 3255 Balance -1996 -1469 Weight 172.7 kg 171.8 kg General appearance: PRESENT: no acute distress Eye exam: PRESENT: PERRLA Mouth exam: PRESENT: neck supple Respiratory exam: PRESENT: clear to auscultation pennie Cardiovascular exam: PRESENT: +S1, +S2 GI/Abdominal exam: PRESENT: normal bowel sounds, soft Additonal comments: Suprapubic catheter is intact Extremities exam: ABSENT: pedal edema Neurological exam: PRESENT: alert, awake, oriented to person, oriented to place , oriented to time, oriented to situation Skin exam: PRESENT: dry Results Laboratory Results: 05/07/18 05:26 05/07/18 17:30 05/05/18 05/05/18 05/05/18 00:20 01:18 07:35 Creatine Kinase 96 CK-MB (CK-2) Cancelled 1.91 Troponin I Cancelled < 0.012 NT-Pro-B Natriuret Pep 05/05/18 05/05/18 05/05/18 07:35 07:35 14:34 Creatine Kinase 109 CK-MB (CK-2) 1.28 Troponin I < 0.012 NT-Pro-B Natriuret Pep 220 05/05/18 05/06/18 05/07/18 14:34 04:12 05:26 Creatine Kinase CK-MB (CK-2) 1.20 Troponin I < 0.012 NT-Pro-B Natriuret Pep 599 542 Impressions: Chest X-Ray 05/04/18 00:00 IMPRESSION: Limited evaluation of the lung bases. No gross abnormalities appreciated. Consider upright PA and lateral if clinically feasible. Head CT 05/04/18 16:03 IMPRESSION: 1 No significant interval changes since the previous examination dated 04/20/2017. No acute intracranial abnormality. EVIDENCE OF ACUTE STROKE: NO. Carotid Doppler Study 05/06/18 00:00 IMPRESSION: Velocities elevated in the right ICA and left CCA without corresponding spectral or color Doppler findings. Qualifiers - * PATIENT BEING DISCHARGED WITH ANY OF THE FOLLOWING DIAGNOSIS: No VTE patient discharged on overlapping Therapy?: Yes Plan Time Spent: Greater than 30 Minutes - Follow outpatients with the neurology and cardiology Following office in 1 week and will check a Chem-7 Follow with the pain management to readjust the pain medications
--- NOTE | 2018-05-10 12:16 | EEG PRO FEE REPORT ---
EEG INTERPRETATION PATIENT NAME: NETTA RICO ROOM#: [id number] ORDER#: [id number] DATE OF STUDY: 05/06/2018 : 1950 REFERRING MD: MD VALENTINA Langley M.D. MEDICATIONS: Lasix, Glucagon, Plaquenil, Synthroid, Norvasc, Duoneb, Lovenox, Ativan, Toprol, Zofran, OxyContin, Singulair, Glucose, Tylenol History This is a 68 year old right handed woman with a history of hypothyroidism, cardiac disorder, valvular heart disease, hypertension, asthma, gastric bypass surgery, spinal stenosis, skin cancer, fibromyalgia, cardiac ablation in 1987. This EEG was requested for blackout spells for the past 6 months that are increasing. EEG Interpretation This EEG was recorded in the awake and drowsy states. The awake EEG is characterized by a well organized background of a well developed and reactive posterior dominant rhythm of 9 Hz. Drowsiness is characterized by slowing of the background rhythms. Photic stimulation resulted in minimal driving. There was moderately frequent brief, generalized intermittent polymorphic delta slowing, maximal bi-frontally that increased in duration during drowsiness in several seconds duration. There was eye rolling noted during one episode but no other clinical correlation noted. There was one sharply contoured waveform in the left occipital region. However there was no definite epileptiform abnormality noted. The EKG showed a regular rhythm. There was significant artifact during the study impairing interpretation. EEG Classification 1. Intermittent polymorphic delta slowing, generalized, brief, maximal bi-frontally 2. Sharply contoured waveform in the left occipital region 3. Technically poor study EEG Impression This EEG is abnormal. The generalized slowing is consistent with mild diffuse cerebral dysfunction. There was one sharply contoured wave form in the left occipital region but no definite epileptiform abnormalities. Clinical correlation is recommended. INTERPRETING PHYSICIAN: CAMILA SCHULTZ M.D. /: MTEFFT TT: [id number] ID: Unknown /: [id number] TD: 1100 JOB: [id number] cc:Iain LANDIS M.D. > MTDD
== END 2018-05-09 14:10 | disposition home health service (06) | DRG 312 ==
LOC: ER 15:43 → EH 19:21 → 4N 23:31
PROVIDERS: ADMIT Family Medicine; ATTEND Family Medicine
DX: R55 Syncope and collapse (principal); Z68.44 Body mass index [BMI] 60.0-69.9, adult; I13.0 Hypertensive heart and chronic kidney disease with heart failure and stage 1 through stage 4 chronic kidney disease, or unspecified chronic kidney disease; I50.32 Chronic diastolic (congestive) heart failure; N17.9 Acute kidney failure, unspecified; T40.2X5A Adverse effect of other opioids, initial encounter; E11.22 Type 2 diabetes mellitus with diabetic chronic kidney disease; E66.01 Morbid (severe) obesity due to excess calories; Z87.440 Personal history of urinary (tract) infections; M54.2 Cervicalgia; I25.10 Atherosclerotic heart disease of native coronary artery without angina pectoris; E78.5 Hyperlipidemia, unspecified; M54.81 Occipital neuralgia; M54.9 Dorsalgia, unspecified; Z96.0 Presence of urogenital implants; N31.9 Neuromuscular dysfunction of bladder, unspecified; M08.00 Unspecified juvenile rheumatoid arthritis of unspecified site; E03.9 Hypothyroidism, unspecified; K21.9 Gastro-esophageal reflux disease without esophagitis; K44.9 Diaphragmatic hernia without obstruction or gangrene; M19.90 Unspecified osteoarthritis, unspecified site; N18.2 Chronic kidney disease, stage 2 (mild); E87.6 Hypokalemia; E11.51 Type 2 diabetes mellitus with diabetic peripheral angiopathy without gangrene; J44.9 Chronic obstructive pulmonary disease, unspecified; G47.30 Sleep apnea, unspecified; M79.7 Fibromyalgia; R25.1 Tremor, unspecified; E86.0 Dehydration; Z79.891 Long term (current) use of opiate analgesic; F32.9 Major depressive disorder, single episode, unspecified; Z90.49 Acquired absence of other specified parts of digestive tract; Z98.84 Bariatric surgery status; Z88.0 Allergy status to penicillin; Z88.1 Allergy status to other antibiotic agents; Z79.899 Other long term (current) drug therapy
CPT/HCPCS: 36415; 70450; 71045; 80048; 80053; 81001; 82140; 82533; 82550; 82553; 82607; 82962; 83735; 83880; 84443; 84484; 85025; 87040; 87086; 87088; 87186; 93005; 93010; 93306; 93880; 95819; 99285; G8978-GP; G8979-GP; J1650; J1815; J3480; J3490

== ENCOUNTER → 2018-05-18 | Outpatient (CLI) | payer MEDICARE ==
[2018-05-18 17:32] LABS: HEMATOCRIT 42.4 % (36.0-47.0); HEMOGLOBIN 14.1 g/dL (12.0-15.5); MEAN CORPUSCULAR HEMOGLOBIN 32.1 pg (27.0-33.4); MEAN CORPUSCULAR HGB CONC 33.2 g/dL (32.0-36.0); MEAN CORPUSCULAR VOLUME 97 fl (80-97); PLATELET COUNT 163 10^3/uL (150-450); RED BLOOD COUNT 4.39 10^6/uL (3.72-5.28); WHITE BLOOD COUNT 7.3 10^3/uL (4.0-10.5)
[2018-05-18 18:04] LABS: ANION GAP 15 (5-19); BLOOD UREA NITROGEN 68 mg/dL (7-20); CALCIUM 9.5 mg/dL (8.4-10.2); CARBON DIOXIDE 26 mmol/L (22-30); CHLORIDE 104 mmol/L (98-107); GLUCOSE 124 mg/dL (75-110); POTASSIUM 4.4 mmol/L (3.6-5.0); SODIUM 144.7 mmol/L (137-145)
== END ==
LOC: OD 16:24
PROVIDERS: ATTEND Physician Assistant Medical
DX: I12.9 Hypertensive chronic kidney disease with stage 1 through stage 4 chronic kidney disease, or unspecified chronic kidney disease (principal); N18.2 Chronic kidney disease, stage 2 (mild); N39.0 Urinary tract infection, site not specified
CPT/HCPCS: 36415; 80048; 85027

== ENCOUNTER 2018-05-19 10:37 | Inpatient (IN) | payer MEDICARE ==
--- NOTE | 2018-05-19 13:12 | ER Document Report ---
ED General - General Chief Complaint: Skin Sore(s) Stated Complaint: WOUND Time Seen by Provider: 05/19/18 13:10 Mode of Arrival: Medic Information source: Relative, Emergency Med Personnel Cannot obtain history due to: Altered mental status - STUPOROUS TRAVEL OUTSIDE OF THE [place] IN LAST 30 DAYS: No - HPI Onset: Last week Quality of pain: Other - CAN'T DESCRIBE Context: Patient complains of intolerable pain from skin lesions in her pelvic area. She is mobility impaired due to her morbid obesity, and has been wheelchair- bound for a year or more. Despite her immobility, she has been living by herself, and is able to perform some of her ADLs. Apparently the visiting nurse saw her today and told her that she needed to come to the hospital. Apparently some lab work was done recently which showed some degree of renal failure, according to patient's son. The patient was not conversant when I saw her, appeared to be in a stupor which the son says is probably narcotic induced. Recently seen / treated by doctor: Yes - Related Data Allergies/Adverse Reactions: ciprofloxacin [From Cipro] Allergy (Severe, Verified 05/19/18 11:05) Anaphylaxis Penicillins Allergy (Severe, Verified 05/19/18 11:05) Anaphylaxis adhesive tape [Adhesive Tape] Adverse Reaction (Severe, Verified 05/19/18 11:05) BLISTERS, SKIN BECOMES RAW indomethacin [From Indocin] Adverse Reaction (Severe, Verified 05/19/18 11:05) CAUSES SWELLING AND INFLAMMATION meperidine HCl [From Demerol] Adverse Reaction (Severe, Verified 05/19/18 11:05) Hallucinations Past Medical History - General Information source: Relative - Social History Smoking Status: Unknown if Ever Smoked Cigarette use (# per day): No Chew tobacco use (# tins/day): No Frequency of alcohol use: None Drug Abuse: None Lives with: Alone Family History: Hypertension Patient has suicidal ideation: No Patient has homicidal ideation: No - Past Medical History Cardiac Medical History: Reports: Hx Coronary Artery Disease - vascular probs pennie legs, Hx Hypercholesterolemia, Hx Hypertension - on meds, Hx Peripheral Vascular Disease, Hx Heart Murmur Denies: Hx Heart Attack Pulmonary Medical History: Reports: Hx Asthma - severe,neb,inhaler, Hx Bronchitis - in past Denies: Hx COPD, Hx Pneumonia, Hx Respiratory Failure, Hx Sleep Apnea, Hx Tuberculosis Neurological Medical History: Denies: Hx Cerebrovascular Accident, Hx Seizures Endocrine Medical History: Reports: Hx Diabetes Mellitus Type 2, Hx Hypothyroidism Renal/ Medical History: Reports: Hx Ovarian Cysts. Denies: Hx Peritoneal Dialysis GI Medical History: Reports: Hx Gastroesophageal Reflux Disease, Hx Hiatal Hernia, Hx Irritable Bowel. Denies: Hx Pancreatitis Musculoskeletal Medical History: Reports Hx Arthritis - RA,fibromyalgia, Reports Hx Fibromyalgia Psychiatric Medical History: Reports: Hx Depression Traumatic Medical History: Reports: Hx Fractures Past Surgical History: Reports: Hx Cholecystectomy, Hx Gastric Bypass Surgery - Lap Band, post in stomach for lap band , Hx Hysterectomy, Hx Orthopedic Surgery - right hip x3, left knee x1 - Immunizations Hx Diphtheria, Pertussis, Tetanus Vaccination: Yes Hx Pneumococcal Vaccination: 10/11/12 Review of Systems - Review of Systems -: Yes ROS unobtainable due to patient's medical condition Physical Exam - Vital signs Vitals: Temp Pulse Resp BP Pulse Ox 97.7 F 86 18 137/59 H 96 05/19/18 10:52 05/19/18 10:52 05/19/18 10:52 05/19/18 10:52 05/19/18 10:52 Interpretation: Normal. No: Tachycardic, Tachypneic, Febrile - General General appearance: Lethargic - RESPONDS TO PAINFUL STIMULI WITH GRIMACE, NO EYE -OPENING. - HEENT Head: Normocephalic Eyes: Normal Conjunctiva: Normal Ears: Normal Nasal: Normal Mucous membranes: Dry - Respiratory Respiratory status: No respiratory distress Breath sounds: Normal - Cardiovascular Rhythm: Regular Heart sounds: Normal auscultation Murmur: No - Abdominal Inspection: Morbidly Obese - Back Back: Normal - Extremities General upper extremity: Normal inspection General lower extremity: Edema - Neurological Neuro grossly intact: No - STUPOROUS - Skin Skin Temperature: Warm Skin Moisture: Dry Skin Color: Normal Skin Turgor: Elastic Skin irregularity: other - ULCERATED Location of irregularity: Other - L. THIGH & BUTTOCK Irregularity with: Tenderness, Well defined border, Inflammation, Weeping Course - Vital Signs Vital signs: Temp Pulse Resp BP Pulse Ox 97.7 F 86 18 137/59 H 96 05/19/18 10:52 05/19/18 10:52 05/19/18 10:52 05/19/18 10:52 05/19/18 10:52 - Consults DR. Eryn RAMOS Time consulted: 15:18 Consulted provider: will see as inpatient Discharge - Discharge Clinical Impression: Dehydration Acute renal failure Qualifiers: Acute renal failure type: unspecified Qualified Code(s): N17.9 - Acute kidney failure, unspecified Type 2 diabetes mellitus Qualifiers: Diabetes mellitus crayon painter insulin use: unspecified fpc insulin use status Diabetes mellitus complication status: with kidney complications Diabetes mellitus complication detail: with nephropathy Qualified Code(s): E11.21 - Type 2 diabetes mellitus with diabetic nephropathy Decubitus ulcer limited to breakdown of skin (stage 2) Qualifiers: Pressure injury location: thigh Laterality: left Qualified Code(s): L89.222 - Pressure ulcer of left hip, stage 2 Condition: Fair Disposition: ADMITTED INPATIENT Admitting Provider: [facility] Unit Admitted: Medical Floor
[2018-05-19 16:09] LABS: APPEARANCE,URINE SLIGHTLY-CLOUDY; BILIRUBIN,URINE NEGATIVE (NEGATIVE); COLOR,URINE YELLOW; GLUCOSE, URINE NEGATIVE (NEGATIVE); KETONES,URINE NEGATIVE (NEGATIVE); LEUKOCYTE ESTERASE,URINE LARGE (NEGATIVE); NITRITE,URINE POSITIVE (NEGATIVE); PROTEIN,URINE NEGATIVE (NEGATIVE); URINE SPECIFIC GRAVITY 1.012; UROBILINOGEN,URINE NEGATIVE mg/dL (<2.0)
[2018-05-19] MEDS ORDERED: IPRATROPIUM/ALBUTEROL 0.5-2.5 MG/3 ML AMPUL NEB PRN (16:39)
[2018-05-19] MEDS ORDERED: ACETAMINOPHEN 325 MG TABLET PO PRN (16:39)
[2018-05-19 16:43] LABS: ABSOLUTE BASOPHILS # (AUTO) 0.1 10^3/uL (0.0-0.2); ABSOLUTE EOSINOPHILS # (AUTO) 0.1 10^3/uL (0.0-0.6); ABSOLUTE LYMPHOCYTES (AUTO) 1.8 10^3/uL (0.5-4.7); ABSOLUTE MONOCYTES (AUTO) 1.1 10^3/uL (0.1-1.4); BASOPHILS % (AUTO) 1.2 % (0-2); EOSINOPHILS % (AUTO) 1.3 % (0-6); HEMATOCRIT 42.7 % (36.0-47.0); HEMOGLOBIN 14.5 g/dL (12.0-15.5); MEAN CORPUSCULAR HEMOGLOBIN 32.5 pg (27.0-33.4); MEAN CORPUSCULAR VOLUME 96 fl (80-97); MONOCYTES % (AUTO) 11.1 % (3-13); RED BLOOD COUNT 4.46 10^6/uL (3.72-5.28); SEGMENTED NEUTROPHILS % (AUTO) 68.4 % (42-78); TOTAL CELLS COUNTED % (AUTO) 100 %; WHITE BLOOD COUNT 10.2 10^3/uL (4.0-10.5)
[2018-05-19 16:59] LABS: ALANINE AMINOTRANSFERASE 35 U/L (9-52); ALKALINE PHOSPHATASE 66 U/L (38-126); ANION GAP 14 (5-19); ASPARTATE AMINO TRANSFERASE 44 U/L (14-36); BILIRUBIN,DIRECT 0.3 mg/dL (0.0-0.4); BILIRUBIN,TOTAL 0.4 mg/dL (0.2-1.3); BLOOD UREA NITROGEN 76 mg/dL (7-20); CALCIUM 9.4 mg/dL (8.4-10.2); CARBON DIOXIDE 26 mmol/L (22-30); CHLORIDE 106 mmol/L (98-107); CREATINE KINASE 528 U/L (30-135); GLUCOSE 102 mg/dL (75-110); PLATELET COUNT 149 10^3/uL (150-450); POTASSIUM 4.3 mmol/L (3.6-5.0); TOTAL PROTEIN 6.8 g/dL (6.3-8.2)
[2018-05-19] MEDS ORDERED: CEFTRIAXONE 1 GM/D5W RTU 1 GM/50 ML RTUPB IV SCH (17:00)
[2018-05-19] MEDS: DOCUSATE SODIUM 100 MG CAPSULE PO SCH (18:32)
[2018-05-19] MEDS: NORMAL SALINE 1000 ML 1,000 ML IV PRN (18:37)
--- NOTE | 2018-05-19 19:01 | RADIOLOGY REPORT (SQ) ---
EXAM DESCRIPTION: CT HEAD WITHOUT COMPLETED DATE/TIME: 05/19/2018 6:21 pm REASON FOR STUDY: ams COMPARISON: 05/04/2018 TECHNIQUE: Axial images acquired through the brain without intravenous contrast. Images reviewed wi th bone, brain and subdural windows. Additional sagittal and coronal reconstructions were generated. Images stored on PACS. All CT scanners at this facility use dose modulation, iterative reconstruction, and/or weight based d osing when appropriate to reduce radiation dose to as low as reasonably achievable (ALARA). [facility]: Dose Right [facility]: CareDose [facility]: Dose Right [facility]: Teradose 4D [facility]: Smart VC VISION RADIATION DOSE: CT Rad equipment meets quality standard of care and radiation dose reduction techniq ues were employed. CTDIvol: 53.2 mGy. DLP: 964 mGy-cm. mGy. LIMITATIONS: None. FINDINGS: VENTRICLES: Normal size and contour. CEREBRUM: No masses. No hemorrhage. No midline shift. No evidence for acute infarction. Normal gra y/white matter differentiation. No areas of low density in the white matter. CEREBELLUM: No masses. No hemorrhage. No alteration of density. No evidence for acute infarction. EXTRAAXIAL SPACES: No fluid collections. No masses. ORBITS AND GLOBE: No intra- or extraconal masses. Normal contour of globe without masses. CALVARIUM: No fracture. PARANASAL SINUSES: No fluid or mucosal thickening. SOFT TISSUES: No mass or hematoma. OTHER: No other significant finding. IMPRESSION: NORMAL BRAIN CT WITHOUT CONTRAST. EVIDENCE OF ACUTE STROKE: NO. COMMENT: Quality ID # [id number]: Final reports with documentation of one or more dose reduction techniques (e.g., Automated exposure control, adjustment of the mA and/or kV according to patient size, use of iterative reconstruction technique) TECHNICAL DOCUMENTATION: JOB ID: [id number] [employer]- All Rights Reserved Reading location - IP/workstation name: [email or web address]
[2018-05-19] MEDS ORDERED: DEXTROSE 40% GEL 15 GM TUBE PO PRN ×2 (19:22)
[2018-05-19] MEDS ORDERED: DEXTROSE 50%-WATER 25 GM/50 ML DISP.SYRIN IV PRN ×2 (19:22)
[2018-05-19] MEDS ORDERED: GLUCAGON,HUMAN RECOMB 1 MG INJ IM PRN (19:22)
[2018-05-19] MEDS: LANSOPRAZOLE 15 MG TAB.RAP.DR PO SCH (20:39)
[2018-05-19] MEDS ORDERED: CEFTRIAXONE SODIUM 1,000 MG in NORMAL SALINE 50 ML IV SCH (22:00)
[2018-05-19] MEDS: HEPARIN SOD (PORCINE) 5,000 UNIT/ML 1 ML SYRINGE SUBCUT SCH (22:49)
[2018-05-19] MEDS: BACLOFEN 10 MG TABLET PO SCH (22:49)
[2018-05-19] MEDS: MORPHINE SULFATE SR 30 MG TABLET PO SCH (22:49)
[2018-05-19] MEDS ORDERED: CEFTRIAXONE INJ 1000 MG VIAL IV PRN (23:28)
--- NOTE | 2018-05-19 23:38 | EKG REPORT ---
SEVERITY:- ABNORMAL ECG - SINUS RHYTHM FIRST DEGREE AV BLOCK LEFT AXIS DEVIATION LEFT VENTRICULAR HYPERTROPHY BORDERLINE T ABNORMALITIES, INFERIOR LEADS : Confirmed by: Erica Farris MD 19-May-2018 23:38:02
[2018-05-20 05:08] LABS: HEMATOCRIT 38.3 % (36.0-47.0); HEMOGLOBIN 13.2 g/dL (12.0-15.5); MEAN CORPUSCULAR HGB CONC 34.5 g/dL (32.0-36.0); MEAN CORPUSCULAR VOLUME 96 fl (80-97); PLATELET COUNT 141 10^3/uL (150-450); RED CELL DISTRIBUTION WIDTH 15.3 % (11.5-14.0); WHITE BLOOD COUNT 7.4 10^3/uL (4.0-10.5)
[2018-05-20 05:36] LABS: ALANINE AMINOTRANSFERASE 35 U/L (9-52); ALKALINE PHOSPHATASE 62 U/L (38-126); ANION GAP 12 (5-19); ASPARTATE AMINO TRANSFERASE 46 U/L (14-36); BILIRUBIN,DIRECT 0.3 mg/dL (0.0-0.4); BILIRUBIN,TOTAL 0.3 mg/dL (0.2-1.3); BLOOD UREA NITROGEN 61 mg/dL (7-20); CALCIUM 8.6 mg/dL (8.4-10.2); CARBON DIOXIDE 24 mmol/L (22-30); CHLORIDE 109 mmol/L (98-107); GLUCOSE 73 mg/dL (75-110); POTASSIUM 4.1 mmol/L (3.6-5.0); SODIUM 144.5 mmol/L (137-145); TOTAL PROTEIN 5.4 g/dL (6.3-8.2)
[2018-05-20] MEDS: LEVOTHYROXINE SODIUM 0.088 MG TABLET PO SCH (06:20)
[2018-05-20] MEDS: BACLOFEN 10 MG TABLET PO SCH ×3 (06:20→21:38)
[2018-05-20] MEDS: LANSOPRAZOLE 15 MG TAB.RAP.DR PO SCH ×2 (06:20→16:17)
[2018-05-20] MEDS: MORPHINE SULFATE SR 30 MG TABLET PO SCH ×3 (06:20→21:39)
[2018-05-20] MEDS: HEPARIN SOD (PORCINE) 5,000 UNIT/ML 1 ML SYRINGE SUBCUT SCH ×3 (06:20→21:49)
[2018-05-20] MEDS: METOPROLOL SUCCINATE 25 MG TAB.SR.24H PO SCH (09:14)
[2018-05-20] MEDS: FUROSEMIDE 40 MG TABLET PO SCH (09:15)
[2018-05-20] MEDS: MONTELUKAST SODIUM 10 MG TABLET PO SCH (09:15)
[2018-05-20] MEDS: NORMAL SALINE 1000 ML 1,000 ML IV PRN (09:15)
[2018-05-20] MEDS: AMLODIPINE BESYLATE 5 MG TABLET PO SCH (09:15)
[2018-05-20] MEDS: HYDROXYCHLOROQUINE SULFATE 200 MG TABLET PO SCH ×2 (09:17→17:51)
[2018-05-20] MEDS: DOCUSATE SODIUM 100 MG CAPSULE PO SCH ×2 (09:24→17:51)
--- NOTE | 2018-05-20 11:06 | PDOC CONSULTATION ---
Consultation Consult Date: 05/20/18 Consult reason:: renal failure History of Present Illness Admission Date/PCP: 05/19/18 15:46 History of Present Illness: NETTA RICO is a 68 year old female history of diabetes, hypertension, CHF, chronic UTIs, CKD 2, and syncope. She came into the ER yesterday after her home health nurse stated to her that she needed to go to the ER for the syncope and current decubitus ulcer on her bottom. Two days prior she was seen by me for follow up of her STACI. Labs were drawn after the appointment. Yesterday labs were received at my office showing that her creatinine had elevated up to 1.98 from 0.69 on previous discharge. At that point and time she was already in the ER and the family was made aware so they could tell the ER. Yesterday she had a couple syncople episodes, including one that happened in the ER. Prior to this visit she was in the hospital about 10 days ago for syncope and an STACI. At the time a stress test and several other labs/procedures were done, they were all negative for being the cause of the syncope. In the ER for this visit labs were drawn and a CT of head was done. The CT was found to have a normal scan of the brain. Labs showed a creatinine of 2.2/bun of 76 and WBC with nitrates in her urine. She was started on fluids and keflex. A culture of her blood and urine were drawn. This morning her creatinine is down to 1.44 with a bun in the low 60s. Cultures are still pending. At the time she denied chest pain, SOB, n/v/d/c. She does have some pain around the site of her wound. Past Medical History Cardiac Medical History: Reports: Coronary Artery Disease - vascular probs pennie legs, Heart Murmur, Hyperlipidemia, Peripheral Vascular Disease Denies: Myocardial Infarction Pulmonary Medical History: Reports: Asthma - severe,neb,inhaler, Bronchitis - in past Denies: Chronic Obstructive Pulmonary Disease (COPD), Pneumonia, Respiratory Failure, Sleep Apnea, Tuberculosis Neurological Medical History: Denies: Seizures Endocrine Medical History: Reports: Diabetes Mellitus Type 2, Hypothyroidism Renal/ Medical History: Denies: Benign Prostatic Hyperplasia GI Medical History: Reports: Gastroesophageal Reflux Disease, Hiatal Hernia Musculoskeltal Medical History: Reports: Arthritis - RA,fibromyalgia, Fibromyalgia, Rheumatoid Arthritis Denies: Systemic Lupus Erythematosus Psychiatric Medical History: Reports: Depression Past Surgical History Past Surgical History: Reports: Cholecystectomy, Gastric Bypass Surgery - Lap Band, post in stomach for lap band , Hysterectomy, Orthopedic Surgery - right hip x3, left knee x1 Social History Lives with: Alone Smoking Status: Never Smoker Frequency of Alcohol Use: None Hx Recreational Drug Use: No Hx Prescription Drug Abuse: No - Advance Directive Resuscitation Status: Full Code Family History Parental Family History Reviewed: No Children Family History Reviewed: NA Sibling(s) Family History Reviewed.: NA Medication/Allergy Home Medications: Allopurinol [Zyloprim 300 mg Tablet] 300 mg PO Q6AM 05/19/18 Amlodipine Besylate [Norvasc 5 mg Tablet] 5 mg PO Q6AM 05/19/18 Baclofen [Baclofen 10 mg Tablet] 10 mg PO Q8@0600,1400,2200 05/19/18 Furosemide [Lasix 40 mg Tablet] 40 mg PO BID 05/19/18 Glimepiride [Amaryl] 2 mg PO Q6AM 05/19/18 Hydroxychloroquine Sulfate [Plaquenil 200 mg Tablet] 200 mg PO BID 05/19/18 Ipratropium [place] [Atrovent 0.02% Neb 0.5 mg/2.5 ml Ampul] 0.5 mg NEB RTQ6HP PRN 05/19/18 Levothyroxine Sodium [Synthroid 0.088 mg Tablet] 0.088 mg PO Q6AM 05/19/18 Metoprolol Succinate [Toprol Xl 25 mg Tab.sr] 25 mg PO QPM 05/19/18 Montelukast Sodium [Singulair 10 mg Tablet] 10 mg PO QPM 05/19/18 Morphine Sulfate [Morphine Sulfate ER] 30 mg PO Q8@0600,1400,2200 05/19/18 Oxycodone HCl [Roxicodone] 30 mg PO DAILYP PRN 05/19/18 Tramadol HCl [Ultram 50 mg Tablet] 50 mg PO Q12HP PRN 05/19/18 Acetic Acid 0.25% 20 ml .ROUTE DAILY 05/20/18 Calcium 600mg 600 mg PO DAILY 05/20/18 Carboxymethylcellulose Sodium [Refresh Tears] 1 drop OU ASDIR PRN 05/20/18 Cholecalciferol (Vitamin D3) [Vitamin D3 1000 unit Chewable Tablet] 4,000 unit PO DAILY 05/20/18 Cyclosporine 0.05% Oph Emulsio [Restasis 0.05% Oph Emulsion Pf 0.4 ml] 1 drop OU Q12 05/20/18 Insulin Glargine,Hum.rec.anlog [Lantus Solostar] 5 units SQ QPM 05/20/18 Sodium Chloride [Saline Nasal [place]] 1 spray NASL ASDIR PRN 05/20/18 Allergies/Adverse Reactions: ciprofloxacin [From Cipro] Allergy (Severe, Verified 05/19/18 11:05) Anaphylaxis Penicillins Allergy (Severe, Verified 05/19/18 11:05) Anaphylaxis adhesive tape [Adhesive Tape] Adverse Reaction (Severe, Verified 05/19/18 11:05) BLISTERS, SKIN BECOMES RAW indomethacin [From Indocin] Adverse Reaction (Severe, Verified 05/19/18 11:05) CAUSES SWELLING AND INFLAMMATION meperidine HCl [From Demerol] Adverse Reaction (Severe, Verified 05/19/18 11:05) Hallucinations Review of Systems Constitutional: PRESENT: fatigue. ABSENT: anorexia, chills, fever(s), headache( s) Eyes: ABSENT: visual disturbances Nose, Mouth, and Throat: ABSENT: headache(s) Cardiovascular: ABSENT: chest pain, dyspnea on exertion, edema, orthropnea, palpitations Respiratory: ABSENT: cough, dyspnea, sputum Gastrointestinal: ABSENT: abdominal pain, constipation, diarrhea, nausea, vomiting Genitourinary: PRESENT: dysuria Musculoskeletal: PRESENT: joint swelling Integumentary: PRESENT: erythema, lesions, rash, wounds Neurological: PRESENT: syncope, weakness. ABSENT: confusion, dizziness, focal weakness, tingling Physical Exam Vital Signs: Temp Pulse Resp BP Pulse Ox 98.0 F 78 16 118/40 L 94 05/20/18 07:18 05/20/18 07:18 05/20/18 07:18 05/20/18 07:18 05/20/18 07:18 Intake & Output 05/19/18 05/20/18 05/21/18 06:59 06:59 06:59 Intake Total 450 1000 Output Total 1150 Balance -700 1000 Weight 170.9 kg General appearance: PRESENT: no acute distress, well-developed, well-nourished Mouth exam: PRESENT: dry mucosa, neck supple Neck exam: ABSENT: JVD Respiratory exam: PRESENT: clear to auscultation pennie. ABSENT: accessory muscle use, crackles, rales, rhonchi, wheezes Cardiovascular exam: PRESENT: RRR, +S1, +S2 GI/Abdominal exam: PRESENT: soft. ABSENT: firm, guarding, tenderness Extremities exam: PRESENT: joint swelling, pedal edema, tenderness, +1 edema. ABSENT: +2 edema Musculoskeletal exam: PRESENT: tenderness Neurological exam: PRESENT: alert, awake, oriented to person, oriented to place , oriented to time, oriented to situation Psychiatric exam: PRESENT: appropriate affect, normal mood Skin exam: PRESENT: dry, erythema, rash, skin tears, warm. ABSENT: intact Results Laboratory Results: 05/20/18 04:37 05/20/18 04:37 05/19/18 05/19/18 05/20/18 16:19 16:19 04:37 WBC 10.2 7.4 RBC 4.46 4.00 Hgb 14.5 13.2 Hct 42.7 38.3 MCV 96 96 MCH 32.5 33.0 MCHC 34.0 34.5 RDW 15.0 H 15.3 H Plt Count 149 L 141 L Seg Neutrophils % 68.4 Lymphocytes % 18.0 Monocytes % 11.1 Eosinophils % 1.3 Basophils % 1.2 Absolute Neutrophils 7.0 Absolute Lymphocytes 1.8 Absolute Monocytes 1.1 Absolute Eosinophils 0.1 Absolute Basophils 0.1 Sodium 146.0 H Potassium 4.3 Chloride 106 Carbon Dioxide 26 Anion Gap 14 BUN 76 H Creatinine 2.25 H Est GFR ( Amer) 26 L Est GFR (Non-Af Amer) 22 L Glucose 102 Calcium 9.4 Magnesium Total Bilirubin 0.4 AST 44 H ALT 35 Alkaline Phosphatase 66 Total Protein 6.8 Albumin 4.0 05/20/18 04:37 WBC RBC Hgb Hct MCV MCH MCHC RDW Plt Count Seg Neutrophils % Lymphocytes % Monocytes % Eosinophils % Basophils % Absolute Neutrophils Absolute Lymphocytes Absolute Monocytes Absolute Eosinophils Absolute Basophils Sodium 144.5 Potassium 4.1 Chloride 109 H Carbon Dioxide 24 Anion Gap 12 BUN 61 H Creatinine 1.44 H Est GFR ( Amer) 44 L Est GFR (Non-Af Amer) 36 L Glucose 73 L Calcium 8.6 Magnesium 2.3 Total Bilirubin 0.3 AST 46 H ALT 35 Alkaline Phosphatase 62 Total Protein 5.4 L Albumin 3.0 L 05/19/18 16:19 Creatine Kinase 528 H Impressions: Head CT 05/19/18 00:00 IMPRESSION: NORMAL BRAIN CT WITHOUT CONTRAST. EVIDENCE OF ACUTE STROKE: NO. Assessment & Plan - Diagnosis (1) Acute renal failure Qualifiers: Acute renal failure type: unspecified Qualified Code(s): N17.9 - Acute kidney failure, unspecified Plan: nonoliguric, from dehydration, other underlining factors affecting are the current UTI and she admitted to taking 800mg ibuprofen. Continue on normal saline at current rate. Furosemide will need to be adjusted. Patient stated she was having to empty her 2L catheter bag 2 to 3 times a day. Stopping the use of ibuprofen. No current indications for HORSE GROOMER. All meds need to be properly adjusted for a GFR of 25 as she gets over this STACI. (2) Dehydration Plan: continue on current rate of normal saline (3) Decubitus ulcer limited to breakdown of skin (stage 2) Qualifiers: Pressure injury location: thigh Laterality: left Qualified Code(s): L89.222 - Pressure ulcer of left hip, stage 2 Plan: managed by Dr. Toscano (4) Acute diastolic (congestive) heart failure Plan: stable (5) CKD stage 2 due to type 2 diabetes mellitus Plan: baseline is 0.9 (6) Recurrent urinary tract infection Plan: on keflex, awaiting urine culture (7) Syncope Qualifiers: Syncope type: unspecified Qualified Code(s): R55 - Syncope and collapse Plan: possiblity of it being do to dehydration causing the blood pressure to drop. Cardiac was ruled out at last visit. (8) Hypertension Qualifiers: Hypertension type: essential hypertension Qualified Code(s): I10 - Essential (primary) hypertension Plan: controlled (9) Type 2 diabetes mellitus Qualifiers: Diabetes mellitus manager intermediate insulin use: unspecified manager intermediate insulin use status Diabetes mellitus complication status: with kidney complications Diabetes mellitus complication detail: with nephropathy Qualified Code(s): E11.21 - Type 2 diabetes mellitus with diabetic nephropathy
--- NOTE | 2018-05-20 12:42 | PDOC CONSULTATION ---
Consultation Consult Date: 05/20/18 Consult reason:: ulcers both posterior thighs History of Present Illness Admission Date/PCP: 05/19/18 15:46 Patient complains of: pains on ulcers of both thighs History of Present Illness: NETTA RICO is a 68 year old female who has been c/o pains along both posterior thighs for past few days. She was sent to ED for syncopal episodes and thigh pains. She has history of DM, COPD, recurrent UTI and syncopal episodes. Past Medical History Cardiac Medical History: Reports: Coronary Artery Disease - vascular probs pennie legs, Hyperlipidema, Hypertension - on meds, Peripheral Vascular Disease, Heart Murmur Denies: Myocardial Infarction Pulmonary Medical History: Reports: Asthma - severe,neb,inhaler, Bronchitis - in past Denies: Chronic Obstructive Pulmonary Disease (COPD), Pneumonia, Respiratory Failure, Sleep Apnea, Tuberculosis Neurological Medical History: Denies: Seizures Endocrine Medical History: Reports: Diabetes Mellitus Type 2, Hypothyroidism GI Medical History: Reports: Gastroesophageal Reflux Disease, Hiatal Hernia Musculoskeltal Medical History: Reports: Arthritis - RA,fibromyalgia, Fibromyalgia Psychiatric Medical History: Reports: Depression Hematology: Denies: Anemia, Hemophilia, Sickle Cell Disease Past Surgical History Past Surgical History: Reports: Cholecystectomy, Gastric Bypass Surgery - Lap Band, post in stomach for lap band , Hysterectomy, Orthopedic Surgery - right hip x3, left knee x1 Denies: Amputation Social History Lives with: Alone Smoking Status: Never Smoker Frequency of Alcohol Use: None Hx Recreational Drug Use: No Hx Prescription Drug Abuse: No - Advance Directive Resuscitation Status: Full Code Family History Family History: Hypertension Parental Family History Reviewed: Yes Children Family History Reviewed: No Sibling(s) Family History Reviewed.: No Medication/Allergy Home Medications: Allopurinol [Zyloprim 300 mg Tablet] 300 mg PO Q6AM 05/19/18 Amlodipine Besylate [Norvasc 5 mg Tablet] 5 mg PO Q6AM 05/19/18 Baclofen [Baclofen 10 mg Tablet] 10 mg PO Q8@0600,1400,2200 05/19/18 Furosemide [Lasix 40 mg Tablet] 40 mg PO BID 05/19/18 Glimepiride [Amaryl] 2 mg PO Q6AM 05/19/18 Hydroxychloroquine Sulfate [Plaquenil 200 mg Tablet] 200 mg PO BID 05/19/18 Ipratropium [place] [Atrovent 0.02% Neb 0.5 mg/2.5 ml Ampul] 0.5 mg NEB RTQ6HP PRN 05/19/18 Levothyroxine Sodium [Synthroid 0.088 mg Tablet] 0.088 mg PO Q6AM 05/19/18 Metoprolol Succinate [Toprol Xl 25 mg Tab.sr] 25 mg PO QPM 05/19/18 Montelukast Sodium [Singulair 10 mg Tablet] 10 mg PO QPM 05/19/18 Morphine Sulfate [Morphine Sulfate ER] 30 mg PO Q8@0600,1400,2200 05/19/18 Oxycodone HCl [Roxicodone] 30 mg PO DAILYP PRN 05/19/18 Tramadol HCl [Ultram 50 mg Tablet] 50 mg PO Q12HP PRN 05/19/18 Acetic Acid 0.25% 20 ml .ROUTE DAILY 05/20/18 Calcium 600mg 600 mg PO DAILY 05/20/18 Carboxymethylcellulose Sodium [Refresh Tears] 1 drop OU ASDIR PRN 05/20/18 Cholecalciferol (Vitamin D3) [Vitamin D3 1000 unit Chewable Tablet] 4,000 unit PO DAILY 05/20/18 Cyclosporine 0.05% Oph Emulsio [Restasis 0.05% Oph Emulsion Pf 0.4 ml] 1 drop OU Q12 05/20/18 Insulin Glargine,Hum.rec.anlog [Lantus Solostar] 5 units SQ QPM 05/20/18 Potassium Chloride [Klor-Con 10] 10 meq PO BID 05/20/18 Sodium Chloride [Saline Nasal [place]] 1 spray NASL ASDIR PRN 05/20/18 Allergies/Adverse Reactions: ciprofloxacin [From Cipro] Allergy (Severe, Verified 05/19/18 11:05) Anaphylaxis Penicillins Allergy (Severe, Verified 05/20/18 13:29) Anaphylaxis adhesive tape [Adhesive Tape] Adverse Reaction (Severe, Verified 05/19/18 11:05) BLISTERS, SKIN BECOMES RAW indomethacin [From Indocin] Adverse Reaction (Severe, Verified 05/19/18 11:05) CAUSES SWELLING AND INFLAMMATION meperidine HCl [From Demerol] Adverse Reaction (Severe, Verified 05/19/18 11:05) Hallucinations Review of Systems Constitutional: PRESENT: other - no chills/fever Eyes: PRESENT: other - no visual/hearing changes Cardiovascular: PRESENT: other - no cough/chest pains Gastrointestinal: PRESENT: other - no pains Genitourinary: PRESENT: other - no dysuria Neurological: PRESENT: syncope Physical Exam Vital Signs: Temp Pulse Resp BP Pulse Ox 98.7 F 74 20 121/43 L 95 05/20/18 11:15 05/20/18 11:15 05/20/18 11:15 05/20/18 11:15 05/20/18 11:15 Intake & Output 05/19/18 05/20/18 05/21/18 06:59 06:59 06:59 Intake Total 450 1000 Output Total 1150 Balance -700 1000 Weight 170.9 kg General appearance: PRESENT: no acute distress Head exam: PRESENT: atraumatic Eye exam: PRESENT: conjunctiva pink Mouth exam: PRESENT: moist Neck exam: PRESENT: full ROM Respiratory exam: PRESENT: clear to auscultation pennie Cardiovascular exam: PRESENT: RRR Pulses: PRESENT: normal radial pulses Vascular exam: PRESENT: normal capillary refill GI/Abdominal exam: PRESENT: soft Rectal exam: PRESENT: deferred Extremities exam: PRESENT: other - 3x6 cm stage 2-3 ulcer right post thigh 1x2 cm ulcer with surrounding erythema left post thigh Musculoskeletal exam: PRESENT: other - weak lower extremities. Neurological exam: PRESENT: alert, oriented to person, oriented to place, oriented to time, oriented to situation Skin exam: PRESENT: warm - both thighs around ulcer site Results Laboratory Results: 05/20/18 04:37 05/20/18 04:37 05/19/18 05/19/18 05/20/18 16:19 16:19 04:37 WBC 10.2 7.4 RBC 4.46 4.00 Hgb 14.5 13.2 Hct 42.7 38.3 MCV 96 96 MCH 32.5 33.0 MCHC 34.0 34.5 RDW 15.0 H 15.3 H Plt Count 149 L 141 L Seg Neutrophils % 68.4 Lymphocytes % 18.0 Monocytes % 11.1 Eosinophils % 1.3 Basophils % 1.2 Absolute Neutrophils 7.0 Absolute Lymphocytes 1.8 Absolute Monocytes 1.1 Absolute Eosinophils 0.1 Absolute Basophils 0.1 Sodium 146.0 H Potassium 4.3 Chloride 106 Carbon Dioxide 26 Anion Gap 14 BUN 76 H Creatinine 2.25 H Est GFR ( Amer) 26 L Est GFR (Non-Af Amer) 22 L Glucose 102 Calcium 9.4 Magnesium Total Bilirubin 0.4 AST 44 H ALT 35 Alkaline Phosphatase 66 Total Protein 6.8 Albumin 4.0 05/20/18 04:37 WBC RBC Hgb Hct MCV MCH MCHC RDW Plt Count Seg Neutrophils % Lymphocytes % Monocytes % Eosinophils % Basophils % Absolute Neutrophils Absolute Lymphocytes Absolute Monocytes Absolute Eosinophils Absolute Basophils Sodium 144.5 Potassium 4.1 Chloride 109 H Carbon Dioxide 24 Anion Gap 12 BUN 61 H Creatinine 1.44 H Est GFR ( Amer) 44 L Est GFR (Non-Af Amer) 36 L Glucose 73 L Calcium 8.6 Magnesium 2.3 Total Bilirubin 0.3 AST 46 H ALT 35 Alkaline Phosphatase 62 Total Protein 5.4 L Albumin 3.0 L 05/19/18 16:19 Creatine Kinase 528 H Impressions: Head CT 05/19/18 00:00 IMPRESSION: NORMAL BRAIN CT WITHOUT CONTRAST. EVIDENCE OF ACUTE STROKE: NO. 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 Diabetes mellitus complication status: with kidney complications Diabetes mellitus complication detail: with nephropathy Qualified Code(s): E11.21 - Type 2 diabetes mellitus with diabetic nephropathy Is this a current diagnosis for this admission?: Yes (3) Chronic pain syndrome Is this a current diagnosis for this admission?: Yes (4) Hypertension Qualifiers: Hypertension type: essential hypertension Qualified Code(s): I10 - Essential (primary) hypertension Is this a current diagnosis for this admission?: Yes (5) Rheumatoid arthritis Qualifiers: Rheumatoid arthritis location: multiple sites Is this a current diagnosis for this admission?: Yes (6) Syncope Qualifiers: Syncope type: unspecified Qualified Code(s): R55 - Syncope and collapse Is this a current diagnosis for this admission?: Yes - Time Time Spent: 30 to 50 Minutes - Plan Summary Plan Summary: Continue with [place] dressings q 2 days along both ulcer site Nothing to debride at this time
[2018-05-20] MEDS: CEPHALEXIN 500 MG CAPSULE PO SCH ×2 (14:50→21:39)
--- NOTE | 2018-05-20 15:12 | PDOC H&P ---
History of Present Illness Admission Date/PCP: 05/19/18 15:46 Patient complains of: Not feeling well sacral ulcer History of Present Illness: NETTA RICO is a 68 year old female This is a 68-year-old female with the multiple medical problems including history of the type 2 diabetes history of the hypertensions history of the hyperlipidemia history of the congestive heart failure history of the chronic kidney disease history of the chronic back problems and a chronic chronic pain syndromesWith the several medications currently admitting in the hospital for extensive evaluations done for the syncopal episode including the cardiology and neurology workup Recent also went to see a neurology after discharge from the hospital regarding the abnormal EEG and a carotid Doppler and according to the patient was all stable Patients came today in the emergency department because of the patient having some sacral ulcers noticed in the patient's not feeling well In the emergency department since the patient's was at that point following the renal failure and admitting in the hospital for further evaluations I saw the patient is alert awake and oriented patient's denied any chest pain denied any shortness of the breath Ongoing suprapubic catheter recurrent urinary tract infections very high drug resistance and with extensive evaluations by the urology and ID and suggest only use the medications antibiotic with the patient is really symptomatic Patient is currently used acetic acid solutions in the catheter and according to the patient he works very well Patient's also seen by cardiology and nephrology within recently last week and all stable She is currently seeing a doctor holding the pain management and taking several pain medications in the last week with suggest to cut down the all the pain medications but patient is not willing to try and cut down medication until and until the pain management will suggest She is currently weaned off from the medications for months back problem 1 morphine and 1 oxycodone but I think patient's currently back to the all the medications And had a sleep study done in the past and according to the patient she does not have any sleep apnea machine require I think most of the problems patient and her morbid obesity is wheelchair-bound and the patient's pretty much taking the bunch of the pain medications which patients making more narcotics induce sleepiness Past Medical History Cardiac Medical History: Reports: Coronary Artery Disease - vascular probs pennie legs, Hyperlipidema, Hypertension - on meds, Peripheral Vascular Disease, Heart Murmur Denies: Myocardial Infarction Pulmonary Medical History: Reports: Asthma - severe,neb,inhaler, Bronchitis - in past Denies: Chronic Obstructive Pulmonary Disease (COPD), Pneumonia, Respiratory Failure, Sleep Apnea, Tuberculosis Neurological Medical History: Denies: Seizures Endocrine Medical History: Reports: Diabetes Mellitus Type 2, Hypothyroidism GI Medical History: Reports: Gastroesophageal Reflux Disease, Hiatal Hernia Musculoskeltal Medical History: Reports: Arthritis - RA,fibromyalgia, Fibromyalgia Psychiatric Medical History: Reports: Depression Hematology: Denies: Anemia, Hemophilia, Sickle Cell Disease Past Surgical History Past Surgical History: Reports: Cholecystectomy, Gastric Bypass Surgery - Lap Band, post in stomach for lap band , Hysterectomy, Orthopedic Surgery - right hip x3, left knee x1 Denies: Amputation Social History Lives with: Alone Smoking Status: Never Smoker Frequency of Alcohol Use: None Hx Recreational Drug Use: No Hx Prescription Drug Abuse: No - Advance Directive Resuscitation Status: Full Code Family History Family History: Reviewed & Not Pertinent, Hypertension Parental Family History Reviewed: Yes Children Family History Reviewed: Yes Sibling(s) Family History Reviewed.: Yes Medication/Allergy Home Medications: Allopurinol [Zyloprim 300 mg Tablet] 300 mg PO Q6AM 05/19/18 Amlodipine Besylate [Norvasc 5 mg Tablet] 5 mg PO Q6AM 05/19/18 Baclofen [Baclofen 10 mg Tablet] 10 mg PO Q8@0600,1400,2200 05/19/18 Furosemide [Lasix 40 mg Tablet] 40 mg PO BID 05/19/18 Glimepiride [Amaryl] 2 mg PO Q6AM 05/19/18 Hydroxychloroquine Sulfate [Plaquenil 200 mg Tablet] 200 mg PO BID 05/19/18 Ipratropium [place] [Atrovent 0.02% Neb 0.5 mg/2.5 ml Ampul] 0.5 mg NEB RTQ6HP PRN 05/19/18 Levothyroxine Sodium [Synthroid 0.088 mg Tablet] 0.088 mg PO Q6AM 05/19/18 Metoprolol Succinate [Toprol Xl 25 mg Tab.sr] 25 mg PO QPM 05/19/18 Montelukast Sodium [Singulair 10 mg Tablet] 10 mg PO QPM 05/19/18 Morphine Sulfate [Morphine Sulfate ER] 30 mg PO Q8@0600,1400,2200 05/19/18 Oxycodone HCl [Roxicodone] 30 mg PO DAILYP PRN 05/19/18 Tramadol HCl [Ultram 50 mg Tablet] 50 mg PO Q12HP PRN 05/19/18 Acetic Acid 0.25% 20 ml .ROUTE DAILY 05/20/18 Calcium 600mg 600 mg PO DAILY 05/20/18 Carboxymethylcellulose Sodium [Refresh Tears] 1 drop OU ASDIR PRN 05/20/18 Cholecalciferol (Vitamin D3) [Vitamin D3 1000 unit Chewable Tablet] 4,000 unit PO DAILY 05/20/18 Cyclosporine 0.05% Oph Emulsio [Restasis 0.05% Oph Emulsion Pf 0.4 ml] 1 drop OU Q12 05/20/18 Insulin Glargine,Hum.rec.anlog [Lantus Solostar] 5 units SQ QPM 05/20/18 Sodium Chloride [Saline Nasal [place]] 1 spray NASL ASDIR PRN 05/20/18 Allergies/Adverse Reactions: ciprofloxacin [From Cipro] Allergy (Severe, Verified 05/19/18 11:05) Anaphylaxis Penicillins Allergy (Severe, Verified 05/20/18 13:29) Anaphylaxis adhesive tape [Adhesive Tape] Adverse Reaction (Severe, Verified 05/19/18 11:05) BLISTERS, SKIN BECOMES RAW indomethacin [From Indocin] Adverse Reaction (Severe, Verified 05/19/18 11:05) CAUSES SWELLING AND INFLAMMATION meperidine HCl [From Demerol] Adverse Reaction (Severe, Verified 05/19/18 11:05) Hallucinations Review of Systems Constitutional: ABSENT: chills, fever(s), headache(s), weight gain, weight loss Eyes: ABSENT: visual disturbances Ears: ABSENT: hearing changes Cardiovascular: ABSENT: chest pain, dyspnea on exertion, edema, orthropnea, palpitations Respiratory: ABSENT: cough, hemoptysis Gastrointestinal: ABSENT: abdominal pain, constipation, diarrhea, hematemesis, hematochezia, nausea, vomiting Genitourinary: ABSENT: dysuria, hematuria Musculoskeletal: ABSENT: joint swelling Integumentary: ABSENT: rash, wounds Neurological: ABSENT: abnormal gait, abnormal speech, confusion, dizziness, focal weakness, syncope Psychiatric: ABSENT: anxiety, depression, homidical ideation, suicidal ideation Endocrine: ABSENT: cold intolerance, heat intolerance, menstrual abnormalities, polydipsia, polyuria Hematologic/Lymphatic: ABSENT: easy bleeding, easy bruising, lymphadenopathy Physical Exam Vital Signs: Temp Pulse Resp BP Pulse Ox 98.7 F 74 20 121/43 L 95 05/20/18 11:15 05/20/18 11:15 05/20/18 11:15 05/20/18 11:15 05/20/18 11:15 Intake & Output 05/19/18 05/20/18 05/21/18 06:59 06:59 06:59 Intake Total 450 1000 Output Total 1150 Balance -700 1000 Weight 170.9 kg General appearance: PRESENT: no acute distress, obese, well-developed, well- nourished Head exam: PRESENT: atraumatic, normocephalic Eye exam: PRESENT: conjunctiva pink, EOMI, PERRLA. ABSENT: scleral icterus Ear exam: PRESENT: normal external ear exam Mouth exam: PRESENT: moist, tongue midline Neck exam: PRESENT: full ROM. ABSENT: carotid bruit, JVD, lymphadenopathy, thyromegaly Respiratory exam: PRESENT: clear to auscultation pennie Cardiovascular exam: PRESENT: RRR. ABSENT: diastolic murmur, rubs, systolic murmur Pulses: PRESENT: normal dorsalis pedis pul, +2 pedal pulses bilateral Vascular exam: PRESENT: normal capillary refill GI/Abdominal exam: PRESENT: normal bowel sounds, soft. ABSENT: distended, guarding, mass, organolmegaly, rebound, tenderness Additonal comments: Suprapubic catheter is intact Rectal exam: PRESENT: deferred Additional comments: The thigh area some 1-2 cm sized ulcer is present Extremities exam: ABSENT: pedal edema Neurological exam: PRESENT: alert, awake, oriented to person, oriented to place , oriented to time, oriented to situation, CN II-XII grossly intact. ABSENT: motor sensory deficit Psychiatric exam: PRESENT: appropriate affect, normal mood. ABSENT: homicidal ideation, suicidal ideation Skin exam: PRESENT: dry, intact, warm. ABSENT: cyanosis, rash Results Laboratory Results: 05/20/18 04:37 05/20/18 04:37 05/19/18 05/19/18 05/20/18 16:19 16:19 04:37 WBC 10.2 7.4 RBC 4.46 4.00 Hgb 14.5 13.2 Hct 42.7 38.3 MCV 96 96 MCH 32.5 33.0 MCHC 34.0 34.5 RDW 15.0 H 15.3 H Plt Count 149 L 141 L Seg Neutrophils % 68.4 Lymphocytes % 18.0 Monocytes % 11.1 Eosinophils % 1.3 Basophils % 1.2 Absolute Neutrophils 7.0 Absolute Lymphocytes 1.8 Absolute Monocytes 1.1 Absolute Eosinophils 0.1 Absolute Basophils 0.1 Sodium 146.0 H Potassium 4.3 Chloride 106 Carbon Dioxide 26 Anion Gap 14 BUN 76 H Creatinine 2.25 H Est GFR ( Amer) 26 L Est GFR (Non-Af Amer) 22 L Glucose 102 Calcium 9.4 Magnesium Total Bilirubin 0.4 AST 44 H ALT 35 Alkaline Phosphatase 66 Total Protein 6.8 Albumin 4.0 05/20/18 04:37 WBC RBC Hgb Hct MCV MCH MCHC RDW Plt Count Seg Neutrophils % Lymphocytes % Monocytes % Eosinophils % Basophils % Absolute Neutrophils Absolute Lymphocytes Absolute Monocytes Absolute Eosinophils Absolute Basophils Sodium 144.5 Potassium 4.1 Chloride 109 H Carbon Dioxide 24 Anion Gap 12 BUN 61 H Creatinine 1.44 H Est GFR ( Amer) 44 L Est GFR (Non-Af Amer) 36 L Glucose 73 L Calcium 8.6 Magnesium 2.3 Total Bilirubin 0.3 AST 46 H ALT 35 Alkaline Phosphatase 62 Total Protein 5.4 L Albumin 3.0 L 05/19/18 16:19 Creatine Kinase 528 H Impressions: Head CT 05/19/18 00:00 IMPRESSION: NORMAL BRAIN CT WITHOUT CONTRAST. EVIDENCE OF ACUTE STROKE: NO. Assessment & Plan - Diagnosis (1) Acute renal failure Qualifiers: Acute renal failure type: unspecified Qualified Code(s): N17.9 - Acute kidney failure, unspecified Is this a current diagnosis for this admission?: Yes Plan: Start the patient on IV fluid Stop all NSAID We will consult the nephrology (2) Dehydration Is this a current diagnosis for this admission?: Yes Plan: Continuous IV fluid (3) Type 2 diabetes mellitus Qualifiers: Diabetes mellitus jail insulin use: unspecified jail insulin use status Diabetes mellitus complication status: with kidney complications Diabetes mellitus complication detail: with nephropathy Qualified Code(s): E11.21 - Type 2 diabetes mellitus with diabetic nephropathy Is this a current diagnosis for this admission?: Yes Plan: Continues to current medication and sliding scale (4) Chronic pain syndrome Is this a current diagnosis for this admission?: Yes Plan: Consult the pain management Dr. Johnson from the [facility] regarding that adjusting the pain medications I believe patients need to definitely cut down the pain medications (5) Depressed Qualifiers: Depression Type: major depressive disorder Is this a current diagnosis for this admission?: Yes (6) Diastolic congestive heart failure Qualifiers: Heart failure chronicity: chronic Qualified Code(s): I50.32 - Chronic diastolic (congestive) heart failure Is this a current diagnosis for this admission?: Yes Plan: Currently cut down the Lasix dose from twice a day to once a day (7) Hypertension Qualifiers: Hypertension type: essential hypertension Qualified Code(s): I10 - Essential (primary) hypertension Is this a current diagnosis for this admission?: Yes Plan: Currently all stable (8) Neurogenic bladder Is this a current diagnosis for this admission?: Yes Plan: She is currently follow with the urology as outpatient and currently suprapubic catheter (9) Recurrent urinary tract infection Is this a current diagnosis for this admission?: Yes Plan: Will wait for the culture and sensitivity and continues to Keflex (10) Rheumatoid arthritis Qualifiers: Rheumatoid arthritis location: multiple sites Is this a current diagnosis for this admission?: Yes Plan: Patient's last infusion of the medications was 1 week back (11) Syncope Qualifiers: Syncope type: unspecified Qualified Code(s): R55 - Syncope and collapse Is this a current diagnosis for this admission?: Yes Plan: Most likely up from the pain medications as she was right all workup is stable patient seen by the neurology recently and told everything was stable will get the record (12) Tremor Is this a current diagnosis for this admission?: Yes Plan: Follow neurology as outpatient patient's already talked to the neurology last week - Time Time Spent: 50 to 70 Minutes Medications reviewed and adjusted accordingly: Yes Anticipated discharge: SNF Within: Other - Inpatient Certification Medical Necessity: Need Close Monitoring Due to Risk of Patient Decompensation Post Hospital Care: D/C Long Term Care Administrator Documentation - Plan Summary Plan Summary: Admit the patient see other MD orders
[2018-05-20] MEDS: INSULIN LISPRO 100 UNIT/ML 3 ML VIAL SUBCUT PRN ×2 (16:15→21:52)
[2018-05-20] MEDS ORDERED: POLYVINYL ALCOHOL 1.4% OPH SOLN 15 ML OU PRN (19:03)
[2018-05-20] MEDS: CYCLOSPORINE 0.05% OPH EMULSIO 0.4 ML DROPERETTE OU SCH (21:42)
[2018-05-21] MEDS: NORMAL SALINE 1000 ML 1,000 ML IV PRN (00:26)
[2018-05-21 04:40] LABS: HEMATOCRIT 36.4 % (36.0-47.0); HEMOGLOBIN 12.3 g/dL (12.0-15.5); MEAN CORPUSCULAR HEMOGLOBIN 32.5 pg (27.0-33.4); MEAN CORPUSCULAR HGB CONC 33.7 g/dL (32.0-36.0); MEAN CORPUSCULAR VOLUME 96 fl (80-97); PLATELET COUNT 126 10^3/uL (150-450); RED BLOOD COUNT 3.77 10^6/uL (3.72-5.28); RED CELL DISTRIBUTION WIDTH 15.4 % (11.5-14.0); WHITE BLOOD COUNT 6.2 10^3/uL (4.0-10.5)
[2018-05-21 04:58] LABS: ANION GAP 8 (5-19); CARBON DIOXIDE 24 mmol/L (22-30); CHLORIDE 113 mmol/L (98-107); GLUCOSE 103 mg/dL (75-110); POTASSIUM 3.7 mmol/L (3.6-5.0); SODIUM 145.1 mmol/L (137-145)
[2018-05-21] MEDS: LEVOTHYROXINE SODIUM 0.088 MG TABLET PO SCH (05:06)
[2018-05-21] MEDS: HEPARIN SOD (PORCINE) 5,000 UNIT/ML 1 ML SYRINGE SUBCUT SCH ×3 (05:06→22:02)
[2018-05-21] MEDS: MORPHINE SULFATE SR 30 MG TABLET PO SCH (05:06)
[2018-05-21] MEDS: CEPHALEXIN 500 MG CAPSULE PO SCH ×3 (05:07→22:07)
[2018-05-21] MEDS: LANSOPRAZOLE 15 MG TAB.RAP.DR PO SCH ×2 (05:07→18:22)
[2018-05-21] MEDS: BACLOFEN 10 MG TABLET PO SCH ×3 (05:07→22:06)
[2018-05-21 05:13] LABS: BLOOD UREA NITROGEN 33 mg/dL (7-20)
[2018-05-21] MEDS ORDERED: CALCIUM CARBONATE 500 MG TAB.CHEW PO SCH (10:00)
[2018-05-21] MEDS: DOCUSATE SODIUM 100 MG CAPSULE PO SCH ×2 (10:28→18:22)
[2018-05-21] MEDS: FUROSEMIDE 40 MG TABLET PO SCH (10:28)
[2018-05-21] MEDS: AMLODIPINE BESYLATE 5 MG TABLET PO SCH (10:28)
[2018-05-21] MEDS: HYDROXYCHLOROQUINE SULFATE 200 MG TABLET PO SCH ×2 (10:28→18:22)
[2018-05-21] MEDS: METOPROLOL SUCCINATE 25 MG TAB.SR.24H PO SCH (10:29)
[2018-05-21] MEDS: MONTELUKAST SODIUM 10 MG TABLET PO SCH (10:29)
[2018-05-21] MEDS: CYCLOSPORINE 0.05% OPH EMULSIO 0.4 ML DROPERETTE OU SCH ×2 (10:29→22:08)
[2018-05-21] MEDS: CHOLECALCIFEROL (D3) 1,000 UNIT TABLET PO SCH (10:30)
[2018-05-21] MEDS ORDERED: NORMAL SALINE 1000 ML 1,000 ML IV PRN (11:06)
--- NOTE | 2018-05-21 12:38 | PDOC PROGRESS REPORT ---
Subjective Progress Note for:: 05/21/18 Subjective:: Patient is feeling better Patients waiting to go to the rehab facility Patient's kidney function is back to normal Patient still waiting for the pain management consult Reason For Visit: AMS,RENAL FAILURE Physical Exam Vital Signs: Temp Pulse Resp BP Pulse Ox 98.0 F 69 18 128/47 H 95 05/21/18 08:00 05/21/18 08:00 05/21/18 08:00 05/21/18 08:00 05/21/18 08:00 Intake & Output 05/20/18 05/21/18 05/22/18 06:59 06:59 06:59 Intake Total 450 3020 812 Output Total 1150 2325 Balance -700 695 812 Weight 170.9 kg 172.1 kg General appearance: PRESENT: no acute distress, well-developed, well-nourished Head exam: PRESENT: atraumatic, normocephalic Eye exam: PRESENT: conjunctiva pink, EOMI, PERRLA. ABSENT: scleral icterus Ear exam: PRESENT: normal external ear exam Mouth exam: PRESENT: moist, tongue midline Neck exam: PRESENT: full ROM. ABSENT: carotid bruit, JVD, lymphadenopathy, thyromegaly Respiratory exam: PRESENT: clear to auscultation pennie Cardiovascular exam: PRESENT: RRR. ABSENT: diastolic murmur, rubs, systolic murmur Pulses: PRESENT: normal dorsalis pedis pul, +2 pedal pulses bilateral Vascular exam: PRESENT: normal capillary refill GI/Abdominal exam: PRESENT: normal bowel sounds, soft. ABSENT: distended, guarding, mass, organolmegaly, rebound, tenderness Rectal exam: PRESENT: deferred Neurological exam: PRESENT: alert, awake, oriented to person, oriented to place , oriented to time, oriented to situation, CN II-XII grossly intact. ABSENT: motor sensory deficit Psychiatric exam: PRESENT: appropriate affect, normal mood. ABSENT: homicidal ideation, suicidal ideation Skin exam: PRESENT: dry, intact, warm. ABSENT: cyanosis, rash Results Laboratory Results: 05/21/18 03:58 05/21/18 03:58 05/21/18 05/21/18 03:58 03:58 WBC 6.2 RBC 3.77 Hgb 12.3 Hct 36.4 MCV 96 MCH 32.5 MCHC 33.7 RDW 15.4 H Plt Count 126 L Sodium 145.1 H Potassium 3.7 Chloride 113 H Carbon Dioxide 24 Anion Gap 8 BUN 33 H D Creatinine 0.70 Est GFR ( Amer) > 60 Est GFR (Non-Af Amer) > 60 Glucose 103 Calcium 8.0 L Magnesium 2.1 05/19/18 16:19 Creatine Kinase 528 H Impressions: Head CT 05/19/18 00:00 IMPRESSION: NORMAL BRAIN CT WITHOUT CONTRAST. EVIDENCE OF ACUTE STROKE: NO. Assessment & Plan - Diagnosis (1) Acute renal failure Qualifiers: Acute renal failure type: unspecified Qualified Code(s): N17.9 - Acute kidney failure, unspecified Is this a current diagnosis for this admission?: Yes Plan: stable (2) Dehydration Is this a current diagnosis for this admission?: Yes Plan: Continuous IV fluid (3) Type 2 diabetes mellitus Qualifiers: Diabetes mellitus terminal computer operator insulin use: unspecified assisted insulin use status Diabetes mellitus complication status: with kidney complications Diabetes mellitus complication detail: with nephropathy Qualified Code(s): E11.21 - Type 2 diabetes mellitus with diabetic nephropathy Is this a current diagnosis for this admission?: Yes Plan: Continues to current medication and sliding scale (4) Chronic pain syndrome Is this a current diagnosis for this admission?: Yes Plan: Consult the pain management Dr. Johnson from the [facility] regarding that adjusting the pain medications I believe patients need to definitely cut down the pain medications (5) Depressed Qualifiers: Depression Type: major depressive disorder Is this a current diagnosis for this admission?: Yes (6) Diastolic congestive heart failure Qualifiers: Heart failure chronicity: chronic Qualified Code(s): I50.32 - Chronic diastolic (congestive) heart failure Is this a current diagnosis for this admission?: Yes Plan: Currently cut down the Lasix dose from twice a day to once a day (7) Hypertension Qualifiers: Hypertension type: essential hypertension Qualified Code(s): I10 - Essential (primary) hypertension Is this a current diagnosis for this admission?: Yes Plan: Currently all stable (8) Neurogenic bladder Is this a current diagnosis for this admission?: Yes Plan: She is currently follow with the urology as outpatient and currently suprapubic catheter (9) Recurrent urinary tract infection Is this a current diagnosis for this admission?: Yes Plan: Will wait for the culture and sensitivity and continues to Keflex (10) Rheumatoid arthritis Qualifiers: Rheumatoid arthritis location: multiple sites Is this a current diagnosis for this admission?: Yes Plan: Patient's last infusion of the medications was 1 week back (11) Syncope Qualifiers: Syncope type: unspecified Qualified Code(s): R55 - Syncope and collapse Is this a current diagnosis for this admission?: Yes Plan: Most likely up from the pain medications as she was right all workup is stable patient seen by the neurology recently and told everything was stable will get the record (12) Tremor Is this a current diagnosis for this admission?: Yes Plan: Follow neurology as outpatient patient's already talked to the neurology last week - Time Time Spent with patient: 15-24 minutes Medications reviewed and adjusted accordingly: Yes Anticipated discharge: Other Within: Other - Inpatient Certification Medical Necessity: Need Close Monitoring Due to Risk of Patient Decompensation Post Hospital Care: D/C Medical Staff Credentialing Coordinator Documentation - Plan Summary Plan Summary: stable
[2018-05-21] MEDS: CALCIUM CARBONATE 500 MG TAB.CHEW PO SCH (13:53)
[2018-05-21] MEDS: OXYCODONE HCL IR 5 MG TABLET PO PRN (19:55)
[2018-05-22] MEDS: OXYCODONE HCL IR 5 MG TABLET PO PRN ×5 (00:21→17:33)
[2018-05-22 04:43] LABS: HEMATOCRIT 37.8 % (36.0-47.0); HEMOGLOBIN 12.9 g/dL (12.0-15.5); MEAN CORPUSCULAR HEMOGLOBIN 32.6 pg (27.0-33.4); MEAN CORPUSCULAR HGB CONC 34.1 g/dL (32.0-36.0); MEAN CORPUSCULAR VOLUME 96 fl (80-97); PLATELET COUNT 111 10^3/uL (150-450); RED BLOOD COUNT 3.95 10^6/uL (3.72-5.28); RED CELL DISTRIBUTION WIDTH 15.6 % (11.5-14.0); WHITE BLOOD COUNT 7.1 10^3/uL (4.0-10.5)
[2018-05-22 05:17] LABS: ANION GAP 6 (5-19); BLOOD UREA NITROGEN 19 mg/dL (7-20); CALCIUM 8.4 mg/dL (8.4-10.2); CARBON DIOXIDE 25 mmol/L (22-30); CHLORIDE 116 mmol/L (98-107); GLUCOSE 105 mg/dL (75-110); POTASSIUM 3.6 mmol/L (3.6-5.0)
[2018-05-22] MEDS: BACLOFEN 10 MG TABLET PO SCH ×3 (05:24→22:45)
[2018-05-22] MEDS: LEVOTHYROXINE SODIUM 0.088 MG TABLET PO SCH (05:24)
[2018-05-22] MEDS: LANSOPRAZOLE 15 MG TAB.RAP.DR PO SCH ×2 (05:24→17:32)
[2018-05-22] MEDS: CEPHALEXIN 500 MG CAPSULE PO SCH ×3 (05:24→22:45)
[2018-05-22] MEDS: HEPARIN SOD (PORCINE) 5,000 UNIT/ML 1 ML SYRINGE SUBCUT SCH ×3 (05:25→21:57)
--- NOTE | 2018-05-22 10:53 | PDOC PROGRESS REPORT ---
Subjective Progress Note for:: 05/22/18 Subjective:: Patient is feeling better Patients waiting to go to the rehab facility Patient's kidney function is back to normal Patient still waiting for the pain management consult Reason For Visit: AMS,RENAL FAILURE Physical Exam Vital Signs: Temp Pulse Resp BP Pulse Ox 98.3 F 69 19 151/51 H 93 05/22/18 07:18 05/22/18 07:18 05/22/18 07:18 05/22/18 07:18 05/22/18 07:18 Intake & Output 05/21/18 05/22/18 05/23/18 06:59 06:59 06:59 Intake Total 3020 2369 Output Total 2325 1975 Balance 695 394 Weight 172.1 kg 173.4 kg General appearance: PRESENT: no acute distress, well-developed, well-nourished Head exam: PRESENT: atraumatic, normocephalic Eye exam: PRESENT: conjunctiva pink, EOMI, PERRLA. ABSENT: scleral icterus Ear exam: PRESENT: normal external ear exam Mouth exam: PRESENT: moist, tongue midline Neck exam: PRESENT: full ROM. ABSENT: carotid bruit, JVD, lymphadenopathy, thyromegaly Respiratory exam: PRESENT: clear to auscultation pennie Cardiovascular exam: PRESENT: RRR. ABSENT: diastolic murmur, rubs, systolic murmur Pulses: PRESENT: normal dorsalis pedis pul, +2 pedal pulses bilateral Vascular exam: PRESENT: normal capillary refill GI/Abdominal exam: PRESENT: normal bowel sounds, soft. ABSENT: distended, guarding, mass, organolmegaly, rebound, tenderness Rectal exam: PRESENT: deferred Neurological exam: PRESENT: alert, awake, oriented to person, oriented to place , oriented to time, oriented to situation, CN II-XII grossly intact. ABSENT: motor sensory deficit Psychiatric exam: PRESENT: appropriate affect, normal mood. ABSENT: homicidal ideation, suicidal ideation Skin exam: PRESENT: dry, intact, warm. ABSENT: cyanosis, rash Results Laboratory Results: 05/22/18 04:20 05/22/18 04:20 05/22/18 05/22/18 04:20 04:20 WBC 7.1 RBC 3.95 Hgb 12.9 Hct 37.8 MCV 96 MCH 32.6 MCHC 34.1 RDW 15.6 H Plt Count 111 L Sodium 147.0 H Potassium 3.6 Chloride 116 H Carbon Dioxide 25 Anion Gap 6 BUN 19 Creatinine 0.60 Est GFR ( Amer) > 60 Est GFR (Non-Af Amer) > 60 Glucose 105 Calcium 8.4 Magnesium 2.0 05/19/18 16:19 Creatine Kinase 528 H Impressions: Head CT 05/19/18 00:00 IMPRESSION: NORMAL BRAIN CT WITHOUT CONTRAST. EVIDENCE OF ACUTE STROKE: NO. Assessment & Plan - Diagnosis (1) Acute renal failure Qualifiers: Acute renal failure type: unspecified Qualified Code(s): N17.9 - Acute kidney failure, unspecified Is this a current diagnosis for this admission?: Yes Plan: stable (2) Dehydration Is this a current diagnosis for this admission?: Yes Plan: Continuous IV fluid (3) Type 2 diabetes mellitus Qualifiers: Diabetes mellitus half-way insulin use: unspecified windows system admin insulin use status Diabetes mellitus complication status: with kidney complications Diabetes mellitus complication detail: with nephropathy Qualified Code(s): E11.21 - Type 2 diabetes mellitus with diabetic nephropathy Is this a current diagnosis for this admission?: Yes Plan: Continues to current medication and sliding scale (4) Chronic pain syndrome Is this a current diagnosis for this admission?: Yes Plan: Consult the pain management Dr. Johnson from the [facility] regarding that adjusting the pain medications I believe patients need to definitely cut down the pain medications (5) Depressed Qualifiers: Depression Type: major depressive disorder Is this a current diagnosis for this admission?: Yes (6) Diastolic congestive heart failure Qualifiers: Heart failure chronicity: chronic Qualified Code(s): I50.32 - Chronic diastolic (congestive) heart failure Is this a current diagnosis for this admission?: Yes Plan: Currently cut down the Lasix dose from twice a day to once a day (7) Hypertension Qualifiers: Hypertension type: essential hypertension Qualified Code(s): I10 - Essential (primary) hypertension Is this a current diagnosis for this admission?: Yes Plan: Currently all stable (8) Neurogenic bladder Is this a current diagnosis for this admission?: Yes Plan: She is currently follow with the urology as outpatient and currently suprapubic catheter (9) Recurrent urinary tract infection Is this a current diagnosis for this admission?: Yes Plan: Will wait for the culture and sensitivity and continues to Keflex (10) Rheumatoid arthritis Qualifiers: Rheumatoid arthritis location: multiple sites Is this a current diagnosis for this admission?: Yes Plan: Patient's last infusion of the medications was 1 week back (11) Syncope Qualifiers: Syncope type: unspecified Qualified Code(s): R55 - Syncope and collapse Is this a current diagnosis for this admission?: Yes (12) Tremor Is this a current diagnosis for this admission?: Yes Plan: Outpatient neurology - Time Time Spent with patient: 15-24 minutes Medications reviewed and adjusted accordingly: Yes Anticipated discharge: SNF Within: within 24 hours - Inpatient Certification Medical Necessity: Need Close Monitoring Due to Risk of Patient Decompensation Post Hospital Care: D/C Chicken Buyer Documentation - Plan Summary Plan Summary: Patient is currently all stable seen by the pain management adjust the pain medications hopefully patient is discharged to the rehab facilities
[2018-05-22] MEDS: CHOLECALCIFEROL (D3) 1,000 UNIT TABLET PO SCH (11:18)
[2018-05-22] MEDS: MONTELUKAST SODIUM 10 MG TABLET PO SCH (11:18)
[2018-05-22] MEDS: AMLODIPINE BESYLATE 5 MG TABLET PO SCH (11:18)
[2018-05-22] MEDS: FUROSEMIDE 40 MG TABLET PO SCH (11:18)
[2018-05-22] MEDS: CYCLOSPORINE 0.05% OPH EMULSIO 0.4 ML DROPERETTE OU SCH ×2 (11:19→22:44)
[2018-05-22] MEDS: HYDROXYCHLOROQUINE SULFATE 200 MG TABLET PO SCH ×2 (11:19→17:34)
[2018-05-22] MEDS: DOCUSATE SODIUM 100 MG CAPSULE PO SCH ×2 (11:19→17:33)
[2018-05-22] MEDS: METOPROLOL SUCCINATE 25 MG TAB.SR.24H PO SCH (11:19)
[2018-05-22] MEDS ORDERED: ONDANSETRON HCL INJ/PF 4 MG/2 ML SDV IV PRN (11:41)
[2018-05-22] MEDS: ONDANSETRON 4 MG TAB.RAPDIS PO PRN ×2 (12:00→22:52)
[2018-05-22] MEDS: INSULIN LISPRO 100 UNIT/ML 3 ML VIAL SUBCUT PRN ×2 (12:00→22:45)
[2018-05-22] MEDS: CALCIUM CARBONATE 500 MG TAB.CHEW PO SCH (13:11)
[2018-05-22] MEDS: FLUCONAZOLE 100 MG TABLET PO SCH (17:33)
[2018-05-23] MEDS: OXYCODONE HCL IR 5 MG TABLET PO PRN ×5 (01:43→21:37)
[2018-05-23 05:28] LABS: ANION GAP 13 (5-19); BLOOD UREA NITROGEN 16 mg/dL (7-20); CALCIUM 8.7 mg/dL (8.4-10.2); CARBON DIOXIDE 23 mmol/L (22-30); CHLORIDE 110 mmol/L (98-107); GLUCOSE 153 mg/dL (75-110); POTASSIUM 4.1 mmol/L (3.6-5.0); SODIUM 145.6 mmol/L (137-145)
[2018-05-23] MEDS: HEPARIN SOD (PORCINE) 5,000 UNIT/ML 1 ML SYRINGE SUBCUT SCH ×3 (05:58→21:38)
[2018-05-23] MEDS: BACLOFEN 10 MG TABLET PO SCH ×3 (06:03→21:37)
[2018-05-23] MEDS: CEPHALEXIN 500 MG CAPSULE PO SCH ×3 (06:03→21:37)
[2018-05-23] MEDS: LEVOTHYROXINE SODIUM 0.088 MG TABLET PO SCH (06:03)
[2018-05-23] MEDS: LANSOPRAZOLE 15 MG TAB.RAP.DR PO SCH ×2 (06:03→17:28)
[2018-05-23] MEDS: METOPROLOL SUCCINATE 25 MG TAB.SR.24H PO SCH (09:57)
[2018-05-23] MEDS: MONTELUKAST SODIUM 10 MG TABLET PO SCH (09:57)
[2018-05-23] MEDS: CHOLECALCIFEROL (D3) 1,000 UNIT TABLET PO SCH (09:58)
[2018-05-23] MEDS: DOCUSATE SODIUM 100 MG CAPSULE PO SCH ×2 (09:58→17:28)
[2018-05-23] MEDS: AMLODIPINE BESYLATE 5 MG TABLET PO SCH (09:58)
[2018-05-23] MEDS: FUROSEMIDE 40 MG TABLET PO SCH (09:58)
[2018-05-23] MEDS: HYDROXYCHLOROQUINE SULFATE 200 MG TABLET PO SCH ×2 (09:59→17:28)
[2018-05-23] MEDS: CYCLOSPORINE 0.05% OPH EMULSIO 0.4 ML DROPERETTE OU SCH ×2 (09:59→21:38)
[2018-05-23] MEDS: ONDANSETRON 4 MG TAB.RAPDIS PO PRN (10:07)
--- NOTE | 2018-05-23 12:26 | CONSULTATION REPORT E ---
Consultation Report NAME: NETTA RICO : 1950 AGE: 68Y DATE: 05/21/2018 ROOM: 414 A TO: MARIAN GREER PA-C FROM: VALENTINA RAMOS M.D. Requesting Physician PAIN MANAGEMENT CONSULTATION CHIEF COMPLAINT: Right lower back pain and sacral ulcer. HISTORY OF PRESENT ILLNESS: The patient was admitted yesterday to the hospital due to syncopal episodes, which have been ongoing as well as a decubitus ulcer which was found. She was also found to be having worsening kidney function and was admitted for this. She is a well-known patient of ours. We see her monthly. She has ongoing chronic lower back pain as well as widespread joint pain due to her rheumatoid arthritis. We have been consulted to try to decrease her pain medication due to her kidney function. She currently takes MS-Contin 30 mg every 8 hours. She denies side effects with this She also has oxycodone at home for breakthrough pain which is helpful. We have been working on tapering her dose over the past few months. She states she is willing today to try to adjust her medications while in the hospital. PAST MEDICAL HISTORY: Includes type 2 diabetes, hypertension, hyperlipidemia, congestive heart failure, chronic kidney disease, rheumatoid arthritis, asthma, celiac disease, spastic bladder and neurogenic bladder, myalgia, osteoarthritis. PAST SURGICAL HISTORY: Includes cataract surgery, cholecystectomy, hip replacement on the right, hysterectomy, left knee replacement, lap-band, and suprapubic catheter placement. ALLERGIES: CIPRO, PENICILLIN, ADHESIVE TAPE, INDOMETHACIN. SOCIAL HISTORY: She lives alone. She does not smoke. She does not use alcohol. She does not use any illicit drugs. REVIEW OF SYSTEMS: CONSTITUTIONAL: Denies any fever, chills, dizziness, weakness, loss of appetite. SKIN: She denies any itching, diaphoresis. She does have a decubitus ulcer. HEENT: Denies visual changes or difficulty hearing. CARDIOVASCULAR: She denies chest pain, heart palpitations. RESPIRATORY: Denies cough, sputum production. GASTROINTESTINAL: Denies any abdominal pain or nausea, constipation, diarrhea at this time. GENITOURINARY: She denies dysuria, hematuria at this time. MUSCULOSKELETAL: Positive for back pain, joint pain. NEUROLOGIC: Denies any focal weakness, bowel or bladder incontinence, problems with anesthesia. Denies any seizures or tremors. ENDOCRINE: Denies recent weight changes. Review of systems is otherwise negative. PHYSICAL EXAMINATION: GENERAL: She is a pleasant, white, obese female sitting upright in bed. Did not appear to be in any acute distress. She has good communication ability. VITAL SIGNS: Her vitals are stable. SKIN: Warm and dry. HEENT: Normocephalic, atraumatic. Extraocular muscles are intact. NECK: Supple and nontender. CARDIOVASCULAR: Radial pulses are 2+ bilaterally. LUNGS: Respirations are nonlabored. ABDOMEN: Nontender. EXTREMITIES: Warm, moves easily. Her last putter away strength is preserved. PSYCHIATRIC: The patient is alert and oriented to person, place, and time. IMPRESSION AND PLAN: Chronic pain syndrome with worsening kidney function. We have been working with her over the past few months to taper her opioid dosage. She takes MS- Contin 30 mg three times a day chronically and denies s/e. She is having worsening kidney function so this is not the best opioid for her due to potential for side effects. We will trial an opioid rotation to oxycodone since she has taken this medication in the past with success and without side effects. We will trial oxycodone IR 10 mg PO q 4 hours PRN. Her daily morphine equivalent dosing remains the same overall with this rotation. We will monitor for side effects. The patient was discussed with Dr. Johnson who agreed with the above treatment plan. Thank you for the consult. DICTATING PHYSICIAN: MARIAN GREER PA-C [id number] PHY#: [id number] [id number] JOB#: [id number] ACCT: [id number] cc:MARIAN GREER PA-C > MTDD
[2018-05-23] MEDS: CALCIUM CARBONATE 500 MG TAB.CHEW PO SCH (12:59)
[2018-05-23] MEDS: INSULIN LISPRO 100 UNIT/ML 3 ML VIAL SUBCUT PRN (15:41)
--- NOTE | 2018-05-23 17:27 | PDOC PROGRESS REPORT ---
Subjective Progress Note for:: 05/23/18 Subjective:: Patient is feeling better Patients waiting to go to the rehab facility Patient's kidney function is back to normal Patient still waiting for the pain management consult Reason For Visit: AMS,RENAL FAILURE Physical Exam Vital Signs: Temp Pulse Resp BP Pulse Ox 98.1 F 89 20 135/70 H 93 05/23/18 14:57 05/23/18 14:57 05/23/18 14:57 05/23/18 14:57 05/23/18 14:57 Intake & Output 05/22/18 05/23/18 05/24/18 06:59 06:59 06:59 Intake Total 2369 798 739 Output Total 3088 675 625 Balance 394 123 114 Weight 173.4 kg 173.9 kg General appearance: PRESENT: no acute distress, well-developed, well-nourished Head exam: PRESENT: atraumatic, normocephalic Eye exam: PRESENT: conjunctiva pink, EOMI, PERRLA. ABSENT: scleral icterus Ear exam: PRESENT: normal external ear exam Mouth exam: PRESENT: moist, tongue midline Neck exam: PRESENT: full ROM. ABSENT: carotid bruit, JVD, lymphadenopathy, thyromegaly Respiratory exam: PRESENT: clear to auscultation pennie Cardiovascular exam: PRESENT: RRR. ABSENT: diastolic murmur, rubs, systolic murmur Pulses: PRESENT: normal dorsalis pedis pul, +2 pedal pulses bilateral Vascular exam: PRESENT: normal capillary refill GI/Abdominal exam: PRESENT: normal bowel sounds, soft. ABSENT: distended, guarding, mass, organolmegaly, rebound, tenderness Rectal exam: PRESENT: deferred Neurological exam: PRESENT: alert, awake, oriented to person, oriented to place , oriented to time, oriented to situation, CN II-XII grossly intact. ABSENT: motor sensory deficit Psychiatric exam: PRESENT: appropriate affect, normal mood. ABSENT: homicidal ideation, suicidal ideation Skin exam: PRESENT: dry, intact, warm. ABSENT: cyanosis, rash Results Laboratory Results: 05/22/18 04:20 05/23/18 03:50 05/23/18 03:50 Sodium 145.6 H Potassium 4.1 Chloride 110 H Carbon Dioxide 23 Anion Gap 13 BUN 16 Creatinine 0.74 Est GFR ( Amer) > 60 Est GFR (Non-Af Amer) > 60 Glucose 153 H Calcium 8.7 05/19/18 16:19 Creatine Kinase 528 H Impressions: Head CT 05/19/18 00:00 IMPRESSION: NORMAL BRAIN CT WITHOUT CONTRAST. EVIDENCE OF ACUTE STROKE: NO. 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 Johnson from the [facility] regarding that adjusting the pain medications I believe patients need to definitely cut down the pain medications (5) Depressed Qualifiers: Depression Type: major depressive disorder Is this a current diagnosis for this admission?: Yes (6) Diastolic congestive heart failure Qualifiers: Heart failure chronicity: chronic Qualified Code(s): I50.32 - Chronic diastolic (congestive) heart failure Is this a current diagnosis for this admission?: Yes Plan: Currently cut down the Lasix dose from twice a day to once a day (7) Hypertension Qualifiers: Hypertension type: essential hypertension Qualified Code(s): I10 - Essential (primary) hypertension Is this a current diagnosis for this admission?: Yes Plan: Currently all stable (8) Neurogenic bladder Is this a current diagnosis for this admission?: Yes Plan: She is currently follow with the urology as outpatient and currently suprapubic catheter (9) Recurrent urinary tract infection Is this a current diagnosis for this admission?: Yes Plan: Will wait for the culture and sensitivity and continues to Keflex (10) Rheumatoid arthritis Qualifiers: Rheumatoid arthritis location: multiple sites Is this a current diagnosis for this admission?: Yes Plan: Patient's last infusion of the medications was 1 week back (11) Syncope Qualifiers: Syncope type: unspecified Qualified Code(s): R55 - Syncope and collapse Is this a current diagnosis for this admission?: Yes (12) Tremor Is this a current diagnosis for this admission?: Yes - Time Time Spent with patient: 15-24 minutes Medications reviewed and adjusted accordingly: Yes Anticipated discharge: SNF Within: when bed available - Inpatient Certification Medical Necessity: Need Close Monitoring Due to Risk of Patient Decompensation Post Hospital Care: D/C Blending Operator Documentation - Plan Summary Plan Summary: Patient is currently doing fair
[2018-05-23] MEDS: FLUCONAZOLE 100 MG TABLET PO SCH (17:28)
[2018-05-23] MEDS ORDERED: ACETIC ACID 0.25% MC SCH ×2 (18:00)
[2018-05-23] MEDS: PREGABALIN 50 MG CAPSULE PO SCH (21:37)
[2018-05-23] MEDS: ACETIC ACID 0.25% MC SCH (21:42)
[2018-05-23] MEDS ORDERED: PREGABALIN 50 MG CAPSULE PO SCH (22:00)
[2018-05-24] MEDS: OXYCODONE HCL IR 5 MG TABLET PO PRN ×5 (02:01→20:18)
[2018-05-24] MEDS: LEVOTHYROXINE SODIUM 0.088 MG TABLET PO SCH (05:53)
[2018-05-24] MEDS: BACLOFEN 10 MG TABLET PO SCH ×3 (05:53→21:30)
[2018-05-24] MEDS: LANSOPRAZOLE 15 MG TAB.RAP.DR PO SCH ×2 (05:53→17:24)
[2018-05-24] MEDS: CEPHALEXIN 500 MG CAPSULE PO SCH ×3 (05:53→21:30)
[2018-05-24] MEDS: PREGABALIN 50 MG CAPSULE PO SCH ×3 (05:53→21:30)
[2018-05-24] MEDS: HEPARIN SOD (PORCINE) 5,000 UNIT/ML 1 ML SYRINGE SUBCUT SCH (05:54)
[2018-05-24 06:13] LABS: ABSOLUTE BASOPHILS # (AUTO) 0.1 10^3/uL (0.0-0.2); ABSOLUTE EOSINOPHILS # (AUTO) 0.2 10^3/uL (0.0-0.6); ABSOLUTE LYMPHOCYTES (AUTO) 2.4 10^3/uL (0.5-4.7); ABSOLUTE MONOCYTES (AUTO) 0.8 10^3/uL (0.1-1.4); ABSOLUTE NEUT (AUTO) 5.6 10^3/uL (1.7-8.2); BASOPHILS % (AUTO) 1.2 % (0-2); EOSINOPHILS % (AUTO) 1.8 % (0-6); LYMPHOCYTES % (AUTO) 26.4 % (13-45); MEAN CORPUSCULAR HEMOGLOBIN 32.8 pg (27.0-33.4); MEAN CORPUSCULAR HGB CONC 34.1 g/dL (32.0-36.0); MEAN CORPUSCULAR VOLUME 96 fl (80-97); MONOCYTES % (AUTO) 9.1 % (3-13); RED BLOOD COUNT 4.27 10^6/uL (3.72-5.28); RED CELL DISTRIBUTION WIDTH 15.4 % (11.5-14.0); SEGMENTED NEUTROPHILS % (AUTO) 61.5 % (42-78); TOTAL CELLS COUNTED % (AUTO) 100 %; WHITE BLOOD COUNT 9.2 10^3/uL (4.0-10.5)
[2018-05-24 07:09] LABS: PLATELET COUNT 66 10^3/uL (150-450)
[2018-05-24 07:23] LABS: ANION GAP 9 (5-19); BLOOD UREA NITROGEN 18 mg/dL (7-20); CALCIUM 8.4 mg/dL (8.4-10.2); CARBON DIOXIDE 24 mmol/L (22-30); CHLORIDE 110 mmol/L (98-107); GLUCOSE 139 mg/dL (75-110); POTASSIUM 3.5 mmol/L (3.6-5.0); SODIUM 143.4 mmol/L (137-145)
--- NOTE | 2018-05-24 08:59 | PDOC CONSULTATION ---
Consultation Consult Date: 05/24/18 Attending physician:: VALENTINA RAMOS Consult reason:: Thrombocytopenia History of Present Illness Admission Date/PCP: 05/19/18 15:46 Patient complains of: Thrombocytopenia History of Present Illness: NETTA RICO is a 68 year old female with multiple medical conditions including rheumatoid arthritis, currently on [place] thru Dr. Terell Alex of rheumatology, also has known history of neurogenic bladder with suprapubic catheter, always keeps infected urine with drug-resistant organisms, ID is recommending only treating if there is symptomatic occurrences of UTI. She came in with hypotension, tachycardia and weakness. She did have a sacral decubitus ulcer but only stage I, being treated with creams. She was placed on prophylactic heparin upon admission about 4-5 days ago. Her platelet count on admission was 142, but did drop soon after to the 100s, today at 66. She is not actively bleeding, from a clinical standpoint she was doing better and was being set for discharge to rehab. There are multiple organisms noted in the urine but does not seem to be pathogenic. Past Medical History Cardiac Medical History: Reports: Coronary Artery Disease - vascular probs pennie legs, Hyperlipidema, Hypertension - on meds, Peripheral Vascular Disease, Heart Murmur Denies: Myocardial Infarction Pulmonary Medical History: Reports: Asthma - severe,neb,inhaler, Bronchitis - in past Denies: Chronic Obstructive Pulmonary Disease (COPD), Pneumonia, Respiratory Failure, Sleep Apnea, Tuberculosis Neurological Medical History: Denies: Seizures Endocrine Medical History: Reports: Diabetes Mellitus Type 2, Hypothyroidism GI Medical History: Reports: Gastroesophageal Reflux Disease, Hiatal Hernia Musculoskeltal Medical History: Reports: Arthritis - RA,fibromyalgia, Fibromyalgia Psychiatric Medical History: Reports: Depression Hematology: Denies: Anemia, Hemophilia, Sickle Cell Disease Past Surgical History Past Surgical History: Reports: Cholecystectomy, Gastric Bypass Surgery - Lap Band, post in stomach for lap band , Hysterectomy, Orthopedic Surgery - right hip x3, left knee x1 Denies: Amputation Social History Lives with: Alone Smoking Status: Never Smoker Frequency of Alcohol Use: None Hx Recreational Drug Use: No Hx Prescription Drug Abuse: No - Advance Directive Resuscitation Status: Full Code Family History Family History: Hypertension Parental Family History Reviewed: Yes Children Family History Reviewed: Yes Sibling(s) Family History Reviewed.: Yes Medication/Allergy Home Medications: Allopurinol [Zyloprim 300 mg Tablet] 300 mg PO Q6AM 05/19/18 Amlodipine Besylate [Norvasc 5 mg Tablet] 5 mg PO Q6AM 05/19/18 Glimepiride [Amaryl] 2 mg PO Q6AM 05/19/18 Hydroxychloroquine Sulfate [Plaquenil 200 mg Tablet] 200 mg PO BID 05/19/18 Ipratropium Baldwin [Atrovent 0.02% Neb 0.5 mg/2.5 ml Ampul] 0.5 mg NEB RTQ6HP PRN 05/19/18 Levothyroxine Sodium [Synthroid 0.088 mg Tablet] 0.088 mg PO Q6AM 05/19/18 Metoprolol Succinate [Toprol Xl 25 mg Tab.sr] 25 mg PO QPM 05/19/18 Montelukast Sodium [Singulair 10 mg Tablet] 10 mg PO QPM 05/19/18 Acetic Acid 0.25% 20 ml .ROUTE DAILY 05/20/18 Calcium 600mg 600 mg PO DAILY 05/20/18 Carboxymethylcellulose Sodium [Refresh Tears] 1 drop OU ASDIR PRN 05/20/18 Cholecalciferol (Vitamin D3) [Vitamin D3 1000 unit Chewable Tablet] 4,000 unit PO DAILY 05/20/18 Cyclosporine 0.05% Oph Emulsio [Restasis 0.05% Oph Emulsion Pf 0.4 ml] 1 drop OU Q12 05/20/18 Insulin Glargine,Hum.rec.anlog [Lantus Solostar] 5 units SQ QPM 05/20/18 Potassium Chloride [Klor-Con 10] 10 meq PO BID 05/20/18 Sodium Chloride [Saline Nasal Lutz] 1 spray NASL ASDIR PRN 05/20/18 Baclofen [Baclofen 10 mg Tablet] 5 mg PO Q8 #90 tablet 05/22/18 Cephalexin Monohydrate [Keflex 500 mg Capsule] 500 mg PO Q8 #21 capsule Furosemide [Lasix 40 mg Tablet] 40 mg PO DAILY #30 tablet 05/22/18 Oxycodone HCl [Oxy-Ir 5 mg Tablet] 10 mg PO Q4HP PRN #30 tablet 05/22/18 Pregabalin [Lyrica 50 mg Capsule] 50 mg PO Q8 05/23/18 Allergies/Adverse Reactions: ciprofloxacin [From Cipro] Allergy (Severe, Verified 05/19/18 11:05) Anaphylaxis Penicillins Allergy (Severe, Verified 05/20/18 13:29) Anaphylaxis adhesive tape [Adhesive Tape] Adverse Reaction (Severe, Verified 05/19/18 11:05) BLISTERS, SKIN BECOMES RAW indomethacin [From Indocin] Adverse Reaction (Severe, Verified 05/19/18 11:05) CAUSES SWELLING AND INFLAMMATION meperidine HCl [From Demerol] Adverse Reaction (Severe, Verified 05/19/18 11:05) Hallucinations Review of Systems Constitutional: PRESENT: anorexia, fatigue, weakness Cardiovascular: ABSENT: chest pain, dyspnea on exertion, edema, orthropnea, palpitations Gastrointestinal: ABSENT: abdominal pain, constipation, diarrhea, hematemesis, hematochezia, nausea, vomiting Integumentary: ABSENT: rash, wounds Neurological: ABSENT: abnormal gait, abnormal speech, confusion, dizziness, focal weakness, syncope Endocrine: ABSENT: cold intolerance, heat intolerance, polydipsia, polyuria Physical Exam Vital Signs: Temp Pulse Resp BP Pulse Ox 98.0 F 71 20 138/62 H 91 L 05/24/18 07:13 05/24/18 07:13 05/24/18 07:13 05/24/18 07:13 05/24/18 07:13 Intake & Output 05/23/18 05/24/18 05/25/18 06:59 06:59 06:59 Intake Total 798 739 Output Total 675 625 Balance 123 114 Weight 173.9 kg 173.7 kg General appearance: PRESENT: no acute distress, morbidly obese Eye exam: PRESENT: conjunctiva pink, EOMI, PERRLA. ABSENT: scleral icterus Ear exam: PRESENT: normal external ear exam Teeth exam: PRESENT: poor dentation Respiratory exam: PRESENT: clear to auscultation pennie. ABSENT: rales, rhonchi, wheezes Cardiovascular exam: PRESENT: RRR. ABSENT: diastolic murmur, rubs, systolic murmur GI/Abdominal exam: PRESENT: normal bowel sounds, soft. ABSENT: distended, guarding, mass, organolmegaly, rebound, tenderness Rectal exam: PRESENT: deferred Neurological exam: PRESENT: alert, awake, oriented to person, oriented to place , oriented to time, oriented to situation, CN II-XII grossly intact. ABSENT: motor sensory deficit Results Laboratory Results: 05/24/18 05:25 05/24/18 06:49 05/24/18 05/24/18 05/24/18 05:25 05:25 06:49 WBC 9.2 RBC 4.27 Hgb 14.0 Hct 41.0 MCV 96 MCH 32.8 MCHC 34.1 RDW 15.4 H Plt Count 66 L Seg Neutrophils % 61.5 Lymphocytes % 26.4 Monocytes % 9.1 Eosinophils % 1.8 Basophils % 1.2 Absolute Neutrophils 5.6 Absolute Lymphocytes 2.4 Absolute Monocytes 0.8 Absolute Eosinophils 0.2 Absolute Basophils 0.1 Sodium Cancelled 143.4 Potassium Cancelled 3.5 L Chloride Cancelled 110 H Carbon Dioxide Cancelled 24 Anion Gap Cancelled 9 BUN Cancelled 18 Creatinine Cancelled 0.73 Est GFR ( Amer) Cancelled > 60 Est GFR (Non-Af Amer) Cancelled > 60 Glucose Cancelled 139 H Calcium Cancelled 8.4 05/19/18 16:19 Creatine Kinase 528 H Impressions: Head CT 05/19/18 00:00 IMPRESSION: NORMAL BRAIN CT WITHOUT CONTRAST. EVIDENCE OF ACUTE STROKE: NO. Assessment & Plan - Diagnosis (1) Thrombocytopenia Is this a current diagnosis for this admission?: Yes Plan: Thrombocytopenia noted, we did send coagulation studies, fibrinogen, LDH, hit antibody. Her daughter does have history of ITP and patient herself has autoimmune diagnosis of that could be the issue as well. Heparin has been discontinued now. We will need to see what the labs show over the next 24-48 hours. - Time Time Spent: Greater than 70 Minutes - Inpatient Certification Based on my medical assessment, after consideration of the patient's comorbidities, presenting symptoms, or acuity I expect that the services needed warrant INPATIENT care.: Yes I certify that my determination is in accordance with my understanding of Medicare's requirements for reasonable and necessary INPATIENT services [42 CFR 412.3e].: Yes Medical Necessity: Risk of Complication if Not Cared For in Hospital
[2018-05-24 10:04] LABS: INTERNATIONAL RATION (INR) 1.15; PROTHROMBIN TIME 15.3 SEC (11.4-15.4)
[2018-05-24 10:05] LABS: FIBRINOGEN 194 mg/dL (209-497); PARTIAL THROMBOPLASTIN TIME 27.4 SEC (23.5-35.8)
[2018-05-24] MEDS: METOPROLOL SUCCINATE 25 MG TAB.SR.24H PO SCH (10:33)
[2018-05-24] MEDS: CYCLOSPORINE 0.05% OPH EMULSIO 0.4 ML DROPERETTE OU SCH ×2 (10:33→21:42)
[2018-05-24] MEDS: DOCUSATE SODIUM 100 MG CAPSULE PO SCH ×2 (10:34→17:24)
[2018-05-24] MEDS: FUROSEMIDE 40 MG TABLET PO SCH (10:35)
[2018-05-24] MEDS: MONTELUKAST SODIUM 10 MG TABLET PO SCH (10:35)
[2018-05-24] MEDS: AMLODIPINE BESYLATE 5 MG TABLET PO SCH (10:35)
[2018-05-24] MEDS: HYDROXYCHLOROQUINE SULFATE 200 MG TABLET PO SCH ×2 (10:35→17:24)
[2018-05-24] MEDS: CHOLECALCIFEROL (D3) 1,000 UNIT TABLET PO SCH (10:39)
[2018-05-24] MEDS: CALCIUM CARBONATE 500 MG TAB.CHEW PO SCH (11:50)
--- NOTE | 2018-05-24 16:52 | PDOC PROGRESS REPORT ---
Subjective Progress Note for:: 05/24/18 Subjective:: Patient is currently doing well Patient's denied any chest pain denied any shortness of the breath Since platelet count is 60 Patient's platelet count was normal when patients came Reason For Visit: AMS,RENAL FAILURE Physical Exam Vital Signs: Temp Pulse Resp BP Pulse Ox 97.8 F 69 20 136/63 H 91 L 05/24/18 11:00 05/24/18 11:00 05/24/18 11:00 05/24/18 11:00 05/24/18 11:00 Intake & Output 05/23/18 05/24/18 05/25/18 06:59 06:59 06:59 Intake Total 798 739 Output Total 675 625 Balance 123 114 Weight 173.9 kg 173.7 kg General appearance: PRESENT: no acute distress, well-developed, well-nourished Head exam: PRESENT: atraumatic, normocephalic Eye exam: PRESENT: conjunctiva pink, EOMI, PERRLA. ABSENT: scleral icterus Ear exam: PRESENT: normal external ear exam Mouth exam: PRESENT: moist, tongue midline Neck exam: PRESENT: full ROM. ABSENT: carotid bruit, JVD, lymphadenopathy, thyromegaly Respiratory exam: PRESENT: clear to auscultation pennie Cardiovascular exam: PRESENT: RRR. ABSENT: diastolic murmur, rubs, systolic murmur Pulses: PRESENT: normal dorsalis pedis pul, +2 pedal pulses bilateral Vascular exam: PRESENT: normal capillary refill GI/Abdominal exam: PRESENT: normal bowel sounds, soft. ABSENT: distended, guarding, mass, organolmegaly, rebound, tenderness Rectal exam: PRESENT: deferred Extremities exam: ABSENT: pedal edema Neurological exam: PRESENT: alert, awake, oriented to person, oriented to place , oriented to time, oriented to situation, CN II-XII grossly intact. ABSENT: motor sensory deficit Psychiatric exam: PRESENT: appropriate affect, normal mood. ABSENT: homicidal ideation, suicidal ideation Skin exam: PRESENT: dry, intact, warm. ABSENT: cyanosis, rash Results Laboratory Results: 05/24/18 05:25 05/24/18 06:49 05/24/18 05/24/18 05/24/18 05:25 05:25 06:49 WBC 9.2 RBC 4.27 Hgb 14.0 Hct 41.0 MCV 96 MCH 32.8 MCHC 34.1 RDW 15.4 H Plt Count 66 L Seg Neutrophils % 61.5 Lymphocytes % 26.4 Monocytes % 9.1 Eosinophils % 1.8 Basophils % 1.2 Absolute Neutrophils 5.6 Absolute Lymphocytes 2.4 Absolute Monocytes 0.8 Absolute Eosinophils 0.2 Absolute Basophils 0.1 Sodium Cancelled 143.4 Potassium Cancelled 3.5 L Chloride Cancelled 110 H Carbon Dioxide Cancelled 24 Anion Gap Cancelled 9 BUN Cancelled 18 Creatinine Cancelled 0.73 Est GFR ( Amer) Cancelled > 60 Est GFR (Non-Af Amer) Cancelled > 60 Glucose Cancelled 139 H Calcium Cancelled 8.4 05/19/18 16:19 Creatine Kinase 528 H Impressions: Head CT 05/19/18 00:00 IMPRESSION: NORMAL BRAIN CT WITHOUT CONTRAST. EVIDENCE OF ACUTE STROKE: NO. Assessment & Plan - Diagnosis (1) Acute renal failure Qualifiers: Acute renal failure type: unspecified Qualified Code(s): N17.9 - Acute kidney failure, unspecified Is this a current diagnosis for this admission?: Yes Plan: stable (2) Dehydration Is this a current diagnosis for this admission?: Yes Plan: Currently all resolved (3) Type 2 diabetes mellitus Qualifiers: Diabetes mellitus prison insulin use: unspecified prison insulin use status Diabetes mellitus complication status: with kidney complications Diabetes mellitus complication detail: with nephropathy Qualified Code(s): E11.21 - Type 2 diabetes mellitus with diabetic nephropathy Is this a current diagnosis for this admission?: Yes Plan: Continues to current medication and sliding scale (4) Chronic pain syndrome Is this a current diagnosis for this admission?: Yes Plan: Consult the pain management Dr. Johnson from the [facility] regarding that adjusting the pain medications I believe patients need to definitely cut down the pain medications (5) Depressed Qualifiers: Depression Type: major depressive disorder Is this a current diagnosis for this admission?: Yes (6) Diastolic congestive heart failure Qualifiers: Heart failure chronicity: chronic Qualified Code(s): I50.32 - Chronic diastolic (congestive) heart failure Is this a current diagnosis for this admission?: Yes Plan: Currently cut down the Lasix dose from twice a day to once a day (7) Hypertension Qualifiers: Hypertension type: essential hypertension Qualified Code(s): I10 - Essential (primary) hypertension Is this a current diagnosis for this admission?: Yes Plan: Currently all stable (8) Neurogenic bladder Is this a current diagnosis for this admission?: Yes Plan: She is currently follow with the urology as outpatient and currently suprapubic catheter (9) Recurrent urinary tract infection Is this a current diagnosis for this admission?: Yes Plan: Will wait for the culture and sensitivity and continues to Keflex (10) Rheumatoid arthritis Qualifiers: Rheumatoid arthritis location: multiple sites Is this a current diagnosis for this admission?: Yes Plan: Patient's last infusion of the medications was 1 week back (11) Syncope Qualifiers: Syncope type: unspecified Qualified Code(s): R55 - Syncope and collapse Is this a current diagnosis for this admission?: Yes (12) Tremor Is this a current diagnosis for this admission?: Yes Plan: Outpatient neurology (13) Thrombocytopenia Is this a current diagnosis for this admission?: Yes Plan: Unclear etiology we will consult hematology for further evaluations and stop the heparin - Time Time Spent with patient: 15-24 minutes Medications reviewed and adjusted accordingly: Yes Anticipated discharge: SNF Within: within 24 hours - Inpatient Certification Medical Necessity: Need Close Monitoring Due to Risk of Patient Decompensation Post Hospital Care: D/C 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
[2018-05-24] MEDS: FLUCONAZOLE 100 MG TABLET PO SCH (17:24)
[2018-05-24] MEDS: ACETIC ACID 0.25% MC SCH (21:50)
[2018-05-25] MEDS: OXYCODONE HCL IR 5 MG TABLET PO PRN ×6 (00:29→22:30)
[2018-05-25] MEDS: LEVOTHYROXINE SODIUM 0.088 MG TABLET PO SCH (05:02)
[2018-05-25] MEDS: PREGABALIN 50 MG CAPSULE PO SCH ×3 (05:03→22:30)
[2018-05-25] MEDS: BACLOFEN 10 MG TABLET PO SCH ×2 (05:03→13:38)
[2018-05-25] MEDS: CEPHALEXIN 500 MG CAPSULE PO SCH ×3 (05:03→22:30)
[2018-05-25] MEDS: LANSOPRAZOLE 15 MG TAB.RAP.DR PO SCH ×2 (05:03→17:56)
[2018-05-25 05:24] LABS: ABSOLUTE EOSINOPHILS # (AUTO) 0.3 10^3/uL (0.0-0.6); ABSOLUTE LYMPHOCYTES (AUTO) 2.3 10^3/uL (0.5-4.7); ABSOLUTE MONOCYTES (AUTO) 0.8 10^3/uL (0.1-1.4); ABSOLUTE NEUT (AUTO) 4.2 10^3/uL (1.7-8.2); BASOPHILS % (AUTO) 0.5 % (0-2); EOSINOPHILS % (AUTO) 3.8 % (0-6); HEMATOCRIT 41.4 % (36.0-47.0); HEMOGLOBIN 14.1 g/dL (12.0-15.5); LYMPHOCYTES % (AUTO) 30.1 % (13-45); MEAN CORPUSCULAR HEMOGLOBIN 32.6 pg (27.0-33.4); MEAN CORPUSCULAR HGB CONC 34.1 g/dL (32.0-36.0); MEAN CORPUSCULAR VOLUME 96 fl (80-97); MONOCYTES % (AUTO) 10.4 % (3-13); RED BLOOD COUNT 4.33 10^6/uL (3.72-5.28); RED CELL DISTRIBUTION WIDTH 15.7 % (11.5-14.0); SEGMENTED NEUTROPHILS % (AUTO) 55.2 % (42-78); TOTAL CELLS COUNTED % (AUTO) 100 %; WHITE BLOOD COUNT 7.6 10^3/uL (4.0-10.5)
[2018-05-25 05:56] LABS: ANION GAP 10 (5-19); BLOOD UREA NITROGEN 19 mg/dL (7-20); CARBON DIOXIDE 23 mmol/L (22-30); CHLORIDE 109 mmol/L (98-107); GLUCOSE 118 mg/dL (75-110); POTASSIUM 3.4 mmol/L (3.6-5.0); SODIUM 141.9 mmol/L (137-145)
[2018-05-25 05:59] LABS: PLATELET COUNT 80 10^3/uL (150-450)
--- NOTE | 2018-05-25 08:29 | PDOC PROGRESS REPORT ---
Subjective Progress Note for:: 05/25/18 Subjective:: Patient is currently doing well Patient's DIC workup still pending with the heparin antibody as per discussed with the oncology Since platelet count is 80 going up Reason For Visit: AMS,RENAL FAILURE Physical Exam Vital Signs: Temp Pulse Resp BP Pulse Ox 98.2 F 71 15 143/64 H 91 L 05/24/18 22:21 05/24/18 22:21 05/24/18 22:21 05/24/18 22:21 05/24/18 22:21 Intake & Output 05/24/18 05/25/18 05/26/18 06:59 06:59 06:59 Intake Total 739 2201 Output Total 625 675 Balance 114 1526 Weight 173.7 kg 165.6 kg General appearance: PRESENT: no acute distress, well-developed, well-nourished Head exam: PRESENT: atraumatic, normocephalic Eye exam: PRESENT: conjunctiva pink, EOMI, PERRLA. ABSENT: scleral icterus Ear exam: PRESENT: normal external ear exam Mouth exam: PRESENT: moist, tongue midline Neck exam: PRESENT: full ROM. ABSENT: carotid bruit, JVD, lymphadenopathy, thyromegaly Respiratory exam: PRESENT: clear to auscultation pennie Cardiovascular exam: PRESENT: RRR. ABSENT: diastolic murmur, rubs, systolic murmur Pulses: PRESENT: normal dorsalis pedis pul, +2 pedal pulses bilateral Vascular exam: PRESENT: normal capillary refill GI/Abdominal exam: PRESENT: normal bowel sounds, soft. ABSENT: distended, guarding, mass, organolmegaly, rebound, tenderness Rectal exam: PRESENT: deferred Extremities exam: ABSENT: pedal edema Neurological exam: PRESENT: alert, awake, oriented to person, oriented to place , oriented to time, oriented to situation, CN II-XII grossly intact. ABSENT: motor sensory deficit Psychiatric exam: PRESENT: appropriate affect, normal mood. ABSENT: homicidal ideation, suicidal ideation Skin exam: PRESENT: dry, intact, warm. ABSENT: cyanosis, rash Results Laboratory Results: 05/25/18 04:35 05/25/18 04:35 05/25/18 05/25/18 04:35 04:35 WBC 7.6 RBC 4.33 Hgb 14.1 Hct 41.4 MCV 96 MCH 32.6 MCHC 34.1 RDW 15.7 H Plt Count 80 L Seg Neutrophils % 55.2 Lymphocytes % 30.1 Monocytes % 10.4 Eosinophils % 3.8 Basophils % 0.5 Absolute Neutrophils 4.2 Absolute Lymphocytes 2.3 Absolute Monocytes 0.8 Absolute Eosinophils 0.3 Absolute Basophils 0.0 Sodium 141.9 Potassium 3.4 L Chloride 109 H Carbon Dioxide 23 Anion Gap 10 BUN 19 Creatinine 0.79 Est GFR ( Amer) > 60 Est GFR (Non-Af Amer) > 60 Glucose 118 H Calcium 8.0 L 05/19/18 20:13 Blood Blood Culture - Final NO GROWTH IN 5 DAYS 05/19/18 19:40 Blood Blood Culture - Final NO GROWTH IN 5 DAYS 05/19/18 16:19 Creatine Kinase 528 H Impressions: Head CT 05/19/18 00:00 IMPRESSION: NORMAL BRAIN CT WITHOUT CONTRAST. EVIDENCE OF ACUTE STROKE: NO. Assessment & Plan - Diagnosis (1) Acute renal failure Qualifiers: Acute renal failure type: unspecified Qualified Code(s): N17.9 - Acute kidney failure, unspecified Is this a current diagnosis for this admission?: Yes Plan: Currently all resolved (2) Dehydration Is this a current diagnosis for this admission?: Yes Plan: Currently all resolved (3) Type 2 diabetes mellitus Qualifiers: Diabetes mellitus intermediate project manager insulin use: unspecified fpc insulin use status Diabetes mellitus complication status: with kidney complications Diabetes mellitus complication detail: with nephropathy Qualified Code(s): E11.21 - Type 2 diabetes mellitus with diabetic nephropathy Is this a current diagnosis for this admission?: Yes Plan: Continues to current medication and sliding scale (4) Chronic pain syndrome Is this a current diagnosis for this admission?: Yes Plan: Consult the pain management Dr. Johnson from the [place] regarding that adjusting the pain medications I believe patients need to definitely cut down the pain medications (5) Depressed Qualifiers: Depression Type: major depressive disorder Is this a current diagnosis for this admission?: Yes (6) Diastolic congestive heart failure Qualifiers: Heart failure chronicity: chronic Qualified Code(s): I50.32 - Chronic diastolic (congestive) heart failure Is this a current diagnosis for this admission?: Yes Plan: Currently cut down the Lasix dose from twice a day to once a day (7) Hypertension Qualifiers: Hypertension type: essential hypertension Qualified Code(s): I10 - Essential (primary) hypertension Is this a current diagnosis for this admission?: Yes (8) Neurogenic bladder Is this a current diagnosis for this admission?: Yes Plan: She is currently follow with the urology as outpatient and currently suprapubic catheter (9) Recurrent urinary tract infection Is this a current diagnosis for this admission?: Yes Plan: Will wait for the culture and sensitivity and continues to Keflex (10) Rheumatoid arthritis Qualifiers: Rheumatoid arthritis location: multiple sites Is this a current diagnosis for this admission?: Yes Plan: Patient's last infusion of the medications was 1 week back (11) Syncope Qualifiers: Syncope type: unspecified Qualified Code(s): R55 - Syncope and collapse Is this a current diagnosis for this admission?: Yes (12) Tremor Is this a current diagnosis for this admission?: Yes (13) Thrombocytopenia Is this a current diagnosis for this admission?: Yes Plan: Awaiting further DIC workup follow with the commercial loan specialist patient's platelet counts go up to up to 80 - Time Time Spent with patient: 15-24 minutes Medications reviewed and adjusted accordingly: Yes Anticipated discharge: SNF Within: Other - Inpatient Certification Medical Necessity: Need Close Monitoring Due to Risk of Patient Decompensation Post Hospital Care: D/C Solder Leveler [employer] Documentation - Plan Summary Plan Summary: Will wait for the full workup further DIC currently patient stable will hold the discharge to the nursing facility until the workup is done patients otherwise denied any complaint
[2018-05-25] MEDS ORDERED: POTASSIUM CHLORIDE 10 MEQ CAPSULE.ER PO ONE (08:30)
--- NOTE | 2018-05-25 08:37 | PDOC PROGRESS REPORT ---
Subjective Progress Note for:: 05/25/18 Subjective:: Patient doing well this morning, platelet count is up to 80 Reason For Visit: AMS,RENAL FAILURE Physical Exam Vital Signs: Temp Pulse Resp BP Pulse Ox 98.2 F 71 15 143/64 H 91 L 05/24/18 22:21 05/24/18 22:21 05/24/18 22:21 05/24/18 22:21 05/24/18 22:21 Intake & Output 05/24/18 05/25/18 05/26/18 06:59 06:59 06:59 Intake Total 739 2201 Output Total 625 675 Balance 114 1526 Weight 173.7 kg 165.6 kg General appearance: PRESENT: no acute distress, well-developed, well-nourished Head exam: PRESENT: atraumatic, normocephalic Eye exam: PRESENT: conjunctiva pink, EOMI, PERRLA. ABSENT: scleral icterus Ear exam: PRESENT: normal external ear exam Mouth exam: PRESENT: moist, tongue midline Neck exam: ABSENT: carotid bruit, JVD, lymphadenopathy, thyromegaly Respiratory exam: PRESENT: clear to auscultation pennie. ABSENT: rales, rhonchi, wheezes Cardiovascular exam: PRESENT: RRR. ABSENT: diastolic murmur, rubs, systolic murmur Pulses: PRESENT: normal dorsalis pedis pul Vascular exam: PRESENT: normal capillary refill GI/Abdominal exam: PRESENT: normal bowel sounds, soft. ABSENT: distended, guarding, mass, organolmegaly, rebound, tenderness Rectal exam: PRESENT: deferred Extremities exam: PRESENT: full ROM. ABSENT: calf tenderness, clubbing, pedal edema Neurological exam: PRESENT: alert, awake, oriented to person, oriented to place , oriented to time, oriented to situation, CN II-XII grossly intact. ABSENT: motor sensory deficit Psychiatric exam: PRESENT: appropriate affect, normal mood. ABSENT: homicidal ideation, suicidal ideation Skin exam: PRESENT: dry, intact, warm. ABSENT: cyanosis, rash Results Laboratory Results: 05/25/18 04:35 05/25/18 04:35 05/25/18 05/25/18 04:35 04:35 WBC 7.6 RBC 4.33 Hgb 14.1 Hct 41.4 MCV 96 MCH 32.6 MCHC 34.1 RDW 15.7 H Plt Count 80 L Seg Neutrophils % 55.2 Lymphocytes % 30.1 Monocytes % 10.4 Eosinophils % 3.8 Basophils % 0.5 Absolute Neutrophils 4.2 Absolute Lymphocytes 2.3 Absolute Monocytes 0.8 Absolute Eosinophils 0.3 Absolute Basophils 0.0 Sodium 141.9 Potassium 3.4 L Chloride 109 H Carbon Dioxide 23 Anion Gap 10 BUN 19 Creatinine 0.79 Est GFR ( Amer) > 60 Est GFR (Non-Af Amer) > 60 Glucose 118 H Calcium 8.0 L 05/19/18 20:13 Blood Blood Culture - Final NO GROWTH IN 5 DAYS 05/19/18 19:40 Blood Blood Culture - Final NO GROWTH IN 5 DAYS 05/19/18 16:19 Creatine Kinase 528 H Impressions: Head CT 05/19/18 00:00 IMPRESSION: NORMAL BRAIN CT WITHOUT CONTRAST. EVIDENCE OF ACUTE STROKE: NO. Assessment & Plan - Diagnosis (1) Thrombocytopenia Is this a current diagnosis for this admission?: Yes Plan: Most likely multifactorial, most likely a low-grade DIC type process, but may still be hit. Awaiting hit antibody. Monitor for 1 more day, if platelet count goes up further by tomorrow, then would recommend discharge home thereafter. - Time Time Spent with patient: 35 or more minutes Within: within 24 hours Disposition: Today spent greater than 35 minutes in discussion and coordination of care - Inpatient Certification Based on my medical assessment, after consideration of the patient's comorbidities, presenting symptoms, or acuity I expect that the services needed warrant INPATIENT care.: Yes I certify that my determination is in accordance with my understanding of Medicare's requirements for reasonable and necessary INPATIENT services [42 CFR 412.3e].: Yes Medical Necessity: Risk of Complication if Not Cared For in Hospital
[2018-05-25] MEDS: DOCUSATE SODIUM 100 MG CAPSULE PO SCH ×2 (09:42→17:56)
[2018-05-25] MEDS: METOPROLOL SUCCINATE 25 MG TAB.SR.24H PO SCH (09:42)
[2018-05-25] MEDS: CYCLOSPORINE 0.05% OPH EMULSIO 0.4 ML DROPERETTE OU SCH ×2 (09:42→22:30)
[2018-05-25] MEDS: HYDROXYCHLOROQUINE SULFATE 200 MG TABLET PO SCH ×2 (09:42→17:56)
[2018-05-25] MEDS: CHOLECALCIFEROL (D3) 1,000 UNIT TABLET PO SCH (09:43)
[2018-05-25] MEDS: MONTELUKAST SODIUM 10 MG TABLET PO SCH (09:43)
[2018-05-25] MEDS: FUROSEMIDE 40 MG TABLET PO SCH (09:43)
[2018-05-25] MEDS: AMLODIPINE BESYLATE 5 MG TABLET PO SCH (09:43)
[2018-05-25] MEDS: CALCIUM CARBONATE 500 MG TAB.CHEW PO SCH (12:00)
[2018-05-25] MEDS: INSULIN LISPRO 100 UNIT/ML 3 ML VIAL SUBCUT PRN (12:16)
[2018-05-25] MEDS: ACETIC ACID 0.25% MC SCH (22:45)
[2018-05-26] MEDS: BACLOFEN 10 MG TABLET PO SCH ×4 (01:05→22:30)
[2018-05-26] MEDS: OXYCODONE HCL IR 5 MG TABLET PO PRN ×5 (02:13→20:19)
[2018-05-26] MEDS: CEPHALEXIN 500 MG CAPSULE PO SCH ×3 (06:42→22:30)
[2018-05-26] MEDS: PREGABALIN 50 MG CAPSULE PO SCH ×3 (06:42→22:30)
[2018-05-26] MEDS: LEVOTHYROXINE SODIUM 0.088 MG TABLET PO SCH (06:42)
[2018-05-26 06:47] LABS: ABSOLUTE EOSINOPHILS # (AUTO) 0.3 10^3/uL (0.0-0.6); ABSOLUTE MONOCYTES (AUTO) 0.7 10^3/uL (0.1-1.4); ABSOLUTE NEUT (AUTO) 3.9 10^3/uL (1.7-8.2); BASOPHILS % (AUTO) 0.4 % (0-2); EOSINOPHILS % (AUTO) 3.8 % (0-6); HEMATOCRIT 41.1 % (36.0-47.0); HEMOGLOBIN 13.9 g/dL (12.0-15.5); LYMPHOCYTES % (AUTO) 28.7 % (13-45); MEAN CORPUSCULAR HEMOGLOBIN 32.6 pg (27.0-33.4); MEAN CORPUSCULAR HGB CONC 33.8 g/dL (32.0-36.0); MEAN CORPUSCULAR VOLUME 96 fl (80-97); MONOCYTES % (AUTO) 9.7 % (3-13); RED BLOOD COUNT 4.27 10^6/uL (3.72-5.28); RED CELL DISTRIBUTION WIDTH 15.5 % (11.5-14.0); SEGMENTED NEUTROPHILS % (AUTO) 57.4 % (42-78); TOTAL CELLS COUNTED % (AUTO) 100 %; WHITE BLOOD COUNT 6.9 10^3/uL (4.0-10.5)
[2018-05-26] MEDS: LANSOPRAZOLE 15 MG TAB.RAP.DR PO SCH ×2 (06:49→18:17)
[2018-05-26 07:06] LABS: ANION GAP 9 (5-19); BLOOD UREA NITROGEN 17 mg/dL (7-20); CALCIUM 7.8 mg/dL (8.4-10.2); CARBON DIOXIDE 24 mmol/L (22-30); CHLORIDE 108 mmol/L (98-107); GLUCOSE 117 mg/dL (75-110); POTASSIUM 3.3 mmol/L (3.6-5.0); SODIUM 140.8 mmol/L (137-145)
[2018-05-26 07:56] LABS: PLATELET COUNT 72 10^3/uL (150-450)
--- NOTE | 2018-05-26 08:32 | PDOC PROGRESS REPORT ---
Subjective Progress Note for:: 05/26/18 Subjective:: Had long discussion w/ pt today, still awaiting plt ct but she was tearful and was wondering whether she wanted to continue this way, I discussed speaking w/ hospice and she wanted to talk with them. I did let her know that she would not be able to continue w/ rheumatologic meds usually on hospice. She will talk to them today. But we still plan hopeful d/c when plt ct stabilizes to rehab care and depending on how she does she can transition later on. In total spent 45 min in discussion. Reason For Visit: AMS,RENAL FAILURE Physical Exam Vital Signs: Temp Pulse Resp BP Pulse Ox 97.9 F 73 16 148/65 H 91 L 05/26/18 00:02 05/26/18 00:02 05/26/18 00:02 05/26/18 00:02 05/26/18 00:02 Intake & Output 05/25/18 05/26/18 05/27/18 06:59 06:59 06:59 Intake Total 2201 630 Output Total 675 900 Balance 1526 -270 Weight 165.6 kg General appearance: PRESENT: no acute distress, well-developed, well-nourished Head exam: PRESENT: atraumatic, normocephalic Eye exam: PRESENT: conjunctiva pink, EOMI, PERRLA. ABSENT: scleral icterus Ear exam: PRESENT: normal external ear exam Mouth exam: PRESENT: moist, tongue midline Neck exam: ABSENT: carotid bruit, JVD, lymphadenopathy, thyromegaly Respiratory exam: PRESENT: clear to auscultation pennie. ABSENT: rales, rhonchi, wheezes Cardiovascular exam: PRESENT: RRR. ABSENT: diastolic murmur, rubs, systolic murmur Pulses: PRESENT: normal dorsalis pedis pul Vascular exam: PRESENT: normal capillary refill GI/Abdominal exam: PRESENT: normal bowel sounds, soft. ABSENT: distended, guarding, mass, organolmegaly, rebound, tenderness Rectal exam: PRESENT: deferred Extremities exam: PRESENT: full ROM. ABSENT: calf tenderness, clubbing, pedal edema Neurological exam: PRESENT: alert, awake, oriented to person, oriented to place , oriented to time, oriented to situation, CN II-XII grossly intact. ABSENT: motor sensory deficit Psychiatric exam: PRESENT: appropriate affect, normal mood. ABSENT: homicidal ideation, suicidal ideation Skin exam: PRESENT: dry, intact, warm. ABSENT: cyanosis, rash Results Laboratory Results: 05/26/18 05:29 05/26/18 05:29 05/26/18 05/26/18 05:29 05:29 WBC 6.9 RBC 4.27 Hgb 13.9 Hct 41.1 MCV 96 MCH 32.6 MCHC 33.8 RDW 15.5 H Plt Count 72 L Seg Neutrophils % 57.4 Lymphocytes % 28.7 Monocytes % 9.7 Eosinophils % 3.8 Basophils % 0.4 Absolute Neutrophils 3.9 Absolute Lymphocytes 2.0 Absolute Monocytes 0.7 Absolute Eosinophils 0.3 Absolute Basophils 0.0 Sodium 140.8 Potassium 3.3 L Chloride 108 H Carbon Dioxide 24 Anion Gap 9 BUN 17 Creatinine 0.70 Est GFR ( Amer) > 60 Est GFR (Non-Af Amer) > 60 Glucose 117 H Calcium 7.8 L 05/19/18 16:19 Creatine Kinase 528 H Impressions: Head CT 05/19/18 00:00 IMPRESSION: NORMAL BRAIN CT WITHOUT CONTRAST. EVIDENCE OF ACUTE STROKE: NO. Assessment & Plan - Diagnosis (1) Thrombocytopenia Is this a current diagnosis for this admission?: Yes Plan: Plt ct pending, will follow - Time Time Spent with patient: 35 or more minutes
[2018-05-26] MEDS: FUROSEMIDE 40 MG TABLET PO SCH (11:26)
[2018-05-26] MEDS: CHOLECALCIFEROL (D3) 1,000 UNIT TABLET PO SCH (11:26)
[2018-05-26] MEDS: METOPROLOL SUCCINATE 25 MG TAB.SR.24H PO SCH (11:26)
[2018-05-26] MEDS: CALCIUM CARBONATE 500 MG TAB.CHEW PO SCH (11:26)
[2018-05-26] MEDS: DOCUSATE SODIUM 100 MG CAPSULE PO SCH ×2 (11:26→18:18)
[2018-05-26] MEDS: HYDROXYCHLOROQUINE SULFATE 200 MG TABLET PO SCH ×2 (11:26→18:18)
[2018-05-26] MEDS: CYCLOSPORINE 0.05% OPH EMULSIO 0.4 ML DROPERETTE OU SCH ×2 (11:27→22:31)
[2018-05-26] MEDS: AMLODIPINE BESYLATE 5 MG TABLET PO SCH (11:27)
[2018-05-26] MEDS: MONTELUKAST SODIUM 10 MG TABLET PO SCH (11:40)
[2018-05-26] MEDS ORDERED: POTASSIUM CHLORIDE 10 MEQ CAPSULE.ER PO ONE (12:09)
--- NOTE | 2018-05-26 12:17 | PDOC PROGRESS REPORT ---
Subjective Progress Note for:: 05/26/18 Subjective:: Patient is currently doing fair She is still having a lot of pain due to the ongoing chronic pain issue with the rheumatoid arthritis Patient express herself to going for hospice care due to the ongoing chronic pain issues with the patient did not want to go for more any treatment for rheumatoid and want to make herself more comfortable As per discussed with the son and inform him about patient's decisions and is pretty much agree is going to talk pt platelet is 72 Reason For Visit: AMS,RENAL FAILURE Physical Exam Vital Signs: Temp Pulse Resp BP Pulse Ox 98.3 F 70 17 145/60 H 92 05/26/18 08:47 05/26/18 08:47 05/26/18 08:47 05/26/18 08:47 05/26/18 08:47 Intake & Output 05/25/18 05/26/18 05/27/18 06:59 06:59 06:59 Intake Total 2201 630 Output Total 675 900 Balance 1526 -270 Weight 165.6 kg General appearance: PRESENT: no acute distress, well-developed, well-nourished Head exam: PRESENT: atraumatic, normocephalic Eye exam: PRESENT: conjunctiva pink, EOMI, PERRLA. ABSENT: scleral icterus Ear exam: PRESENT: normal external ear exam Mouth exam: PRESENT: moist, tongue midline Neck exam: PRESENT: full ROM. ABSENT: carotid bruit, JVD, lymphadenopathy, thyromegaly Respiratory exam: PRESENT: clear to auscultation pennie Cardiovascular exam: PRESENT: RRR. ABSENT: diastolic murmur, rubs, systolic murmur Pulses: PRESENT: normal dorsalis pedis pul, +2 pedal pulses bilateral Vascular exam: PRESENT: normal capillary refill GI/Abdominal exam: PRESENT: normal bowel sounds, soft. ABSENT: distended, guarding, mass, organolmegaly, rebound, tenderness Rectal exam: PRESENT: deferred Neurological exam: PRESENT: alert, awake, oriented to person, oriented to place , oriented to time, oriented to situation, CN II-XII grossly intact. ABSENT: motor sensory deficit Psychiatric exam: PRESENT: appropriate affect, normal mood. ABSENT: homicidal ideation, suicidal ideation Skin exam: PRESENT: dry, intact, warm. ABSENT: cyanosis, rash Results Laboratory Results: 05/26/18 05:29 05/26/18 05:29 05/26/18 05/26/18 05:29 05:29 WBC 6.9 RBC 4.27 Hgb 13.9 Hct 41.1 MCV 96 MCH 32.6 MCHC 33.8 RDW 15.5 H Plt Count 72 L Seg Neutrophils % 57.4 Lymphocytes % 28.7 Monocytes % 9.7 Eosinophils % 3.8 Basophils % 0.4 Absolute Neutrophils 3.9 Absolute Lymphocytes 2.0 Absolute Monocytes 0.7 Absolute Eosinophils 0.3 Absolute Basophils 0.0 Sodium 140.8 Potassium 3.3 L Chloride 108 H Carbon Dioxide 24 Anion Gap 9 BUN 17 Creatinine 0.70 Est GFR ( Amer) > 60 Est GFR (Non-Af Amer) > 60 Glucose 117 H Calcium 7.8 L 05/19/18 16:19 Creatine Kinase 528 H Impressions: Head CT 05/19/18 00:00 IMPRESSION: NORMAL BRAIN CT WITHOUT CONTRAST. EVIDENCE OF ACUTE STROKE: NO. Assessment & Plan - Diagnosis (1) Acute renal failure Qualifiers: Acute renal failure type: unspecified Qualified Code(s): N17.9 - Acute kidney failure, unspecified Is this a current diagnosis for this admission?: Yes Plan: Currently all resolved (2) Dehydration Is this a current diagnosis for this admission?: Yes Plan: Currently all resolved (3) Type 2 diabetes mellitus Qualifiers: Diabetes mellitus moth exterminator insulin use: unspecified moth exterminator insulin use status Diabetes mellitus complication status: with kidney complications Diabetes mellitus complication detail: with nephropathy Qualified Code(s): E11.21 - Type 2 diabetes mellitus with diabetic nephropathy Is this a current diagnosis for this admission?: Yes Plan: Continues to current medication and sliding scale (4) Chronic pain syndrome Is this a current diagnosis for this admission?: Yes Plan: Consult the pain management Dr. Johnson from the [facility] regarding that adjusting the pain medications I believe patients need to definitely cut down the pain medications (5) Depressed Qualifiers: Depression Type: major depressive disorder Is this a current diagnosis for this admission?: Yes (6) Diastolic congestive heart failure Qualifiers: Heart failure chronicity: chronic Qualified Code(s): I50.32 - Chronic diastolic (congestive) heart failure Is this a current diagnosis for this admission?: Yes Plan: Currently cut down the Lasix dose from twice a day to once a day (7) Hypertension Qualifiers: Hypertension type: essential hypertension Qualified Code(s): I10 - Essential (primary) hypertension Is this a current diagnosis for this admission?: Yes Plan: Currently all stable (8) Neurogenic bladder Is this a current diagnosis for this admission?: Yes Plan: She is currently follow with the urology as outpatient and currently suprapubic catheter (9) Recurrent urinary tract infection Is this a current diagnosis for this admission?: Yes Plan: Will wait for the culture and sensitivity and continues to Keflex (10) Rheumatoid arthritis Qualifiers: Rheumatoid arthritis location: multiple sites Is this a current diagnosis for this admission?: Yes Plan: Patient's last infusion of the medications was 1 week back (11) Syncope Qualifiers: Syncope type: unspecified Qualified Code(s): R55 - Syncope and collapse Is this a current diagnosis for this admission?: Yes (12) Tremor Is this a current diagnosis for this admission?: Yes (13) Thrombocytopenia Is this a current diagnosis for this admission?: Yes Plan: As per discussed with the spring former machine will give her 1 dose of steroids 60 mg IV today - Time Time Spent with patient: 15-24 minutes Medications reviewed and adjusted accordingly: Yes Anticipated discharge: SNF Within: within 24 hours - Inpatient Certification Medical Necessity: Need Close Monitoring Due to Risk of Patient Decompensation Post Hospital Care: D/C Oracle Adf Developer Documentation - Plan Summary Plan Summary: Patients on multiple medical comorbidity with the severe rheumatoid arthritis with the chronic back problems with the chronic kidney disease heart conditions patients probably require more pain medications which patients wants to do it the hospice is probably appropriate if the patient is not going for any treatment life expectancy is less than 6 month Discussed with the patient's and the son to prefer to go to the rehab for at least couple of weeks and patients will make a decision after that if his sister do not get into better consider hospice at that point Discussed with the Dr. Alex patient's wildlife rehabilitator also pretty much agree
[2018-05-26] MEDS: ACETIC ACID 0.25% MC SCH (22:59)
[2018-05-27] MEDS: OXYCODONE HCL IR 5 MG TABLET PO PRN ×2 (00:34→04:30)
[2018-05-27 05:16] LABS: ABSOLUTE EOSINOPHILS # (AUTO) 0.2 10^3/uL (0.0-0.6); ABSOLUTE LYMPHOCYTES (AUTO) 1.7 10^3/uL (0.5-4.7); ABSOLUTE MONOCYTES (AUTO) 0.6 10^3/uL (0.1-1.4); BASOPHILS % (AUTO) 0.6 % (0-2); EOSINOPHILS % (AUTO) 3.4 % (0-6); HEMATOCRIT 42.3 % (36.0-47.0); HEMOGLOBIN 14.2 g/dL (12.0-15.5); LYMPHOCYTES % (AUTO) 26.2 % (13-45); MEAN CORPUSCULAR HEMOGLOBIN 32.3 pg (27.0-33.4); MEAN CORPUSCULAR HGB CONC 33.5 g/dL (32.0-36.0); MEAN CORPUSCULAR VOLUME 96 fl (80-97); MONOCYTES % (AUTO) 9.8 % (3-13); RED BLOOD COUNT 4.39 10^6/uL (3.72-5.28); RED CELL DISTRIBUTION WIDTH 15.8 % (11.5-14.0); TOTAL CELLS COUNTED % (AUTO) 100 %; WHITE BLOOD COUNT 6.6 10^3/uL (4.0-10.5)
[2018-05-27 05:33] LABS: ANION GAP 8 (5-19); BLOOD UREA NITROGEN 15 mg/dL (7-20); CARBON DIOXIDE 23 mmol/L (22-30); CHLORIDE 110 mmol/L (98-107); GLUCOSE 126 mg/dL (75-110); POTASSIUM 3.6 mmol/L (3.6-5.0); SODIUM 140.9 mmol/L (137-145)
[2018-05-27 05:47] LABS: PLATELET COUNT 80 10^3/uL (150-450)
[2018-05-27] MEDS: BACLOFEN 10 MG TABLET PO SCH (06:02)
[2018-05-27] MEDS: LANSOPRAZOLE 15 MG TAB.RAP.DR PO SCH (06:03)
[2018-05-27] MEDS: PREGABALIN 50 MG CAPSULE PO SCH (06:03)
[2018-05-27] MEDS: LEVOTHYROXINE SODIUM 0.088 MG TABLET PO SCH (06:03)
[2018-05-27] MEDS: CEPHALEXIN 500 MG CAPSULE PO SCH (06:03)
[2018-05-27] MEDS ORDERED: METHYLPREDNISOLONE INJ 40 MG/1 ML SDV IV ONE (08:05)
[2018-05-27] MEDS ORDERED: OXYCODONE HCL IR 5 MG TABLET PO ONE (08:30)
[2018-05-27] MEDS ORDERED: METHYLPREDNISOLONE INJ 125 MG/2 ML SDV IV ONE (08:30)
[2018-05-27] MEDS: CHOLECALCIFEROL (D3) 1,000 UNIT TABLET PO SCH (09:05)
[2018-05-27] MEDS: CYCLOSPORINE 0.05% OPH EMULSIO 0.4 ML DROPERETTE OU SCH (09:08)
[2018-05-27] MEDS: HYDROXYCHLOROQUINE SULFATE 200 MG TABLET PO SCH (09:08)
[2018-05-27] MEDS: METOPROLOL SUCCINATE 25 MG TAB.SR.24H PO SCH (09:09)
[2018-05-27] MEDS: AMLODIPINE BESYLATE 5 MG TABLET PO SCH (09:10)
--- NOTE | 2018-05-27 09:20 | PDOC TRANSFER SUMMARY ---
General - Admit/Disc Date/PCP Admission Date/Primary Care Provider: 05/19/18 15:46 Discharge Date: 05/27/18 - Discharge Diagnosis (1) Acute renal failure Is this a current diagnosis for this admission?: Yes Summary: Currently all resolved (2) Dehydration Is this a current diagnosis for this admission?: Yes Summary: Currently all resolved (3) Type 2 diabetes mellitus Is this a current diagnosis for this admission?: Yes Summary: Continues to current medications sliding scale with [facility] protocol (4) Chronic pain syndrome Is this a current diagnosis for this admission?: Yes Summary: Patient's currently see a doctor Domenico's pain management currently adjusting medications follow-up with him (5) Depressed Is this a current diagnosis for this admission?: Yes (6) Diastolic congestive heart failure Is this a current diagnosis for this admission?: Yes Summary: Continues on Lasix 40 mg p.o. daily (7) Hypertension Is this a current diagnosis for this admission?: Yes Summary: Currently all stable (8) Neurogenic bladder Is this a current diagnosis for this admission?: Yes Summary: Status post suprapubic catheter patient is currently seeing a urology for that (9) Recurrent urinary tract infection Is this a current diagnosis for this admission?: Yes Summary: Currently finished a course of Keflex patient have recurrent urinary tract infections and as per infectious disease although the patient symptomatic otherwise there is no need to check the urine (10) Rheumatoid arthritis Is this a current diagnosis for this admission?: Yes Summary: Patient is currently taking the injectable therapy every 2 weeks and currently see a Dr. 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 Alex again (11) Syncope Is this a current diagnosis for this admission?: Yes Summary: Currently all stable (12) Tremor Is this a current diagnosis for this admission?: Yes Summary: Continues to follow with the neurology Seen the neurology as outpatient as already (13) Thrombocytopenia Is this a current diagnosis for this admission?: Yes Summary: Patient seen by oracle programmer repeat the CBC in 3 days Unclear etiology consider ITP versus mild DIC Given her prednisone therapy for 5 days - Additional Information Resuscitation Status: Full Code Discharge Diet: Diabetic Discharge Activity: Activity As Tolerated Prescriptions: Baclofen [Baclofen 10 mg Tablet] 5 mg PO Q8 #90 tablet Cephalexin Monohydrate [Keflex 500 mg Capsule] 500 mg PO Q8 #21 capsule Furosemide [Lasix 40 mg Tablet] 40 mg PO DAILY #30 tablet Insulin Lispro [Humalog Insulin (Lispro) 100 unit/mL] 0 - 12 unit SUBCUT [id number] PRN #1 unit PRN Reason: Oxycodone HCl [Oxy-Ir 5 mg Tablet] 10 mg PO Q4HP PRN #30 tablet PRN Reason: Prednisone 40 mg PO DAILY #5 tablet Home Medications: Allopurinol [Zyloprim 300 mg Tablet] 300 mg PO Q6AM 05/19/18 Amlodipine Besylate [Norvasc 5 mg Tablet] 5 mg PO Q6AM 05/19/18 Glimepiride [Amaryl] 2 mg PO Q6AM 05/19/18 Hydroxychloroquine Sulfate [Plaquenil 200 mg Tablet] 200 mg PO BID 05/19/18 Ipratropium [place] [Atrovent 0.02% Neb 0.5 mg/2.5 ml Ampul] 0.5 mg NEB [id number] PRN 05/19/18 Levothyroxine Sodium [Synthroid 0.088 mg Tablet] 0.088 mg PO Q6AM 05/19/18 Metoprolol Succinate [Toprol Xl 25 mg Tab.sr] 25 mg PO QPM 05/19/18 Montelukast Sodium [Singulair 10 mg Tablet] 10 mg PO QPM 05/19/18 Acetic Acid 0.25% 20 ml .ROUTE DAILY 05/20/18 Calcium 600mg 600 mg PO DAILY 05/20/18 Carboxymethylcellulose Sodium [Refresh Tears] 1 drop OU ASDIR PRN 05/20/18 Cholecalciferol (Vitamin D3) [Vitamin D3 1000 unit Chewable Tablet] 4,000 unit PO DAILY 05/20/18 Cyclosporine 0.05% Oph Emulsio [Restasis 0.05% Oph Emulsion Pf 0.4 ml] 1 drop OU Q12 05/20/18 Insulin Glargine,Hum.rec.anlog [Lantus Solostar] 5 units SQ QPM 05/20/18 Potassium Chloride [Klor-Con 10] 10 meq PO BID 05/20/18 Sodium Chloride [Saline Nasal [place]] 1 spray NASL ASDIR PRN 05/20/18 Baclofen [Baclofen 10 mg Tablet] 5 mg PO Q8 #90 tablet 05/22/18 Cephalexin Monohydrate [Keflex 500 mg Capsule] 500 mg PO Q8 #21 capsule Furosemide [Lasix 40 mg Tablet] 40 mg PO DAILY #30 tablet 05/22/18 Oxycodone HCl [Oxy-Ir 5 mg Tablet] 10 mg PO Q4HP PRN #30 tablet 05/22/18 Pregabalin [Lyrica 50 mg Capsule] 50 mg PO Q8 05/23/18 Insulin Lispro [Humalog Insulin (Lispro) 100 unit/mL] 0 - 12 unit SUBCUT [id number] PRN #1 unit 05/27/18 Prednisone 40 mg PO DAILY #5 tablet 05/27/18 History of Present Illness Admission Date/PCP: 05/19/18 15:46 History of Present Illness: NETTA RICO is a 68 year old female This is a 68-year-old female with the multiple medical problems including history of the type 2 diabetes history of the hypertensions history of the hyperlipidemia history of the congestive heart failure history of the chronic kidney disease history of the chronic back problems and a chronic chronic pain syndromesWith the several medications currently admitting in the hospital for extensive evaluations done for the syncopal episode including the cardiology and neurology workup Recent also went to see a neurology after discharge from the hospital regarding the abnormal EEG and a carotid Doppler and according to the patient was all stable Patients came today in the emergency department because of the patient having some sacral ulcers noticed in the patient's not feeling well In the emergency department since the patient's was at that point following the renal failure and admitting in the hospital for further evaluations I saw the patient is alert awake and oriented patient's denied any chest pain denied any shortness of the breath Ongoing suprapubic catheter recurrent urinary tract infections very high drug resistance and with extensive evaluations by the urology and ID and suggest only use the medications antibiotic with the patient is really symptomatic Patient is currently used acetic acid solutions in the catheter and according to the patient he works very well Patient's also seen by cardiology and nephrology within recently last week and all stable She is currently seeing a doctor holding the pain management and taking several pain medications in the last week with suggest to cut down the all the pain medications but patient is not willing to try and cut down medication until and until the pain management will suggest She is currently weaned off from the medications for months back problem 1 morphine and 1 oxycodone but I think patient's currently back to the all the medications And had a sleep study done in the past and according to the patient she does not have any sleep apnea machine require I think most of the problems patient and her morbid obesity is wheelchair-bound and the patient's pretty much taking the bunch of the pain medications which patients making more narcotics induce sleepiness Hospital Course Hospital Course: This is a 68-year-old female as medical problem above with the multiple hospital admissions basically admitted to the hospital for the sacral wound and urinary tract infections and multiple other issues Patient's underwent for the several testings and patient was admitted a week before underwent further cardiology and neurology evaluations was all stable Patients was treated with the Keflex and patient seen by Dr. Collins for renal failure Patient's also seen by general surgery for the sacral wound and continues to dressing change Patients also develop a thrombocytopenia and seen by the doctor moises Patient's otherwise remained stable at this point so that he long discussions with the patient and the patient's wants to go for hospice care and discuss with the patient's son about patient's desire Very long discussions with the patient myself at this point we will discharge the patient is to the rehab facilities and if the patient's doing continuously well there is no need for hospice but the patient's decline then discussed with the patient is to follow her with us to be hospice Patient of a multiple comorbidity requiring a lot of pain medications patient seen by the pain management Dr. Acuña's Patients at this point discharged to the rehab facility for the sacral wound care and physical therapy Repeat the CBC and Chem-7 in 1 week Follow-up outpatients of pain management outpatient oracle programmer on outpatient nephrology Patient also see the neurology Dr. vera Patient is currently wheelchair-bound Physical Exam Vital Signs: Temp Pulse Resp BP Pulse Ox 97.5 F 76 22 H 149/69 H 95 05/27/18 00:00 05/27/18 00:00 05/27/18 00:00 05/27/18 00:00 05/27/18 00:00 Intake & Output 05/26/18 05/27/18 05/28/18 06:59 06:59 06:59 Intake Total 630 600 Output Total 900 2024 Balance -270 -1425 Weight 165.6 kg General appearance: PRESENT: no acute distress, well-developed, well-nourished Head exam: PRESENT: atraumatic, normocephalic Eye exam: PRESENT: conjunctiva pink, EOMI, PERRLA. ABSENT: scleral icterus Ear exam: PRESENT: normal external ear exam Mouth exam: PRESENT: moist, tongue midline Neck exam: ABSENT: carotid bruit, JVD, lymphadenopathy, thyromegaly Respiratory exam: PRESENT: clear to auscultation pennie. ABSENT: rales, rhonchi, wheezes Cardiovascular exam: PRESENT: RRR. ABSENT: diastolic murmur, rubs, systolic murmur Pulses: PRESENT: normal dorsalis pedis pul Vascular exam: PRESENT: normal capillary refill GI/Abdominal exam: PRESENT: normal bowel sounds, soft. ABSENT: distended, guarding, mass, organolmegaly, rebound, tenderness Rectal exam: PRESENT: deferred Extremities exam: ABSENT: calf tenderness, clubbing, pedal edema Neurological exam: PRESENT: alert, awake, oriented to person, oriented to place , oriented to time, oriented to situation, CN II-XII grossly intact. ABSENT: motor sensory deficit Psychiatric exam: PRESENT: appropriate affect, normal mood. ABSENT: homicidal ideation, suicidal ideation Skin exam: PRESENT: dry, intact, warm. ABSENT: cyanosis, rash Results Laboratory Results: 05/27/18 04:48 05/27/18 04:48 05/27/18 05/27/18 04:48 04:48 WBC 6.6 RBC 4.39 Hgb 14.2 Hct 42.3 MCV 96 MCH 32.3 MCHC 33.5 RDW 15.8 H Plt Count 80 L Seg Neutrophils % 60.0 Lymphocytes % 26.2 Monocytes % 9.8 Eosinophils % 3.4 Basophils % 0.6 Absolute Neutrophils 4.0 Absolute Lymphocytes 1.7 Absolute Monocytes 0.6 Absolute Eosinophils 0.2 Absolute Basophils 0.0 Sodium 140.9 Potassium 3.6 Chloride 110 H Carbon Dioxide 23 Anion Gap 8 BUN 15 Creatinine 0.69 Est GFR ( Amer) > 60 Est GFR (Non-Af Amer) > 60 Glucose 126 H Calcium 8.0 L 05/19/18 16:19 Creatine Kinase 528 H Impressions: Head CT 05/19/18 00:00 IMPRESSION: NORMAL BRAIN CT WITHOUT CONTRAST. EVIDENCE OF ACUTE STROKE: NO. Transfer Plan - Time Spent with Patient Time spent with patient: Greater than 30 Minutes Qualifiers - * PATIENT BEING DISCHARGED WITH ANY OF THE FOLLOWING DIAGNOSIS: No VTE patient discharged on overlapping Therapy?: Yes Plan Time Spent: Greater than 30 Minutes - Discharge to the residential facilities Check a CBC and Chem-7 in 4 days Follow-up outpatient pain management and outpatient's nephrology and neurology
[2018-05-27] MEDS: FUROSEMIDE 40 MG TABLET PO SCH (09:21)
[2018-05-27] MEDS: DOCUSATE SODIUM 100 MG CAPSULE PO SCH (09:21)
[2018-05-27 12:23] VITALS: BP 175/76
[2018-05-27] MEDS: CALCIUM CARBONATE 500 MG TAB.CHEW PO SCH (13:19)
--- NOTE | 2018-05-27 16:16 | PDOC PROGRESS REPORT ---
Subjective Progress Note for:: 05/27/18 Subjective:: No acute events, yesterday hospice spoke w/ pt, plan is to d/c to NH/rehab and if pt does not improve, we may decide to bring in hospice later. But for now will plan continued plan of care. Today had long discussion w/ pt spent >35m in discussion. Reason For Visit: AMS,RENAL FAILURE Physical Exam Vital Signs: Temp Pulse Resp BP Pulse Ox 97.5 F 73 19 175/76 H 95 05/27/18 11:27 05/27/18 11:27 05/27/18 11:27 05/27/18 11:27 05/27/18 11:27 Intake & Output 05/26/18 05/27/18 05/28/18 06:59 06:59 06:59 Intake Total 630 600 Output Total 900 5 Balance -270 -1425 Weight 165.6 kg General appearance: PRESENT: no acute distress, well-developed, well-nourished Head exam: PRESENT: atraumatic, normocephalic Eye exam: PRESENT: conjunctiva pink, EOMI, PERRLA. ABSENT: scleral icterus Ear exam: PRESENT: normal external ear exam Mouth exam: PRESENT: moist, tongue midline Neck exam: ABSENT: carotid bruit, JVD, lymphadenopathy, thyromegaly Respiratory exam: PRESENT: clear to auscultation pennie. ABSENT: rales, rhonchi, wheezes Cardiovascular exam: PRESENT: RRR. ABSENT: diastolic murmur, rubs, systolic murmur Pulses: PRESENT: normal dorsalis pedis pul Vascular exam: PRESENT: normal capillary refill GI/Abdominal exam: PRESENT: normal bowel sounds, soft. ABSENT: distended, guarding, mass, organolmegaly, rebound, tenderness Rectal exam: PRESENT: deferred Extremities exam: PRESENT: full ROM. ABSENT: calf tenderness, clubbing, pedal edema Neurological exam: PRESENT: alert, awake, oriented to person, oriented to place , oriented to time, oriented to situation, CN II-XII grossly intact. ABSENT: motor sensory deficit Psychiatric exam: PRESENT: appropriate affect, normal mood. ABSENT: homicidal ideation, suicidal ideation Skin exam: PRESENT: dry, intact, warm. ABSENT: cyanosis, rash Results Laboratory Results: 05/27/18 04:48 05/27/18 04:48 05/27/18 05/27/18 04:48 04:48 WBC 6.6 RBC 4.39 Hgb 14.2 Hct 42.3 MCV 96 MCH 32.3 MCHC 33.5 RDW 15.8 H Plt Count 80 L Seg Neutrophils % 60.0 Lymphocytes % 26.2 Monocytes % 9.8 Eosinophils % 3.4 Basophils % 0.6 Absolute Neutrophils 4.0 Absolute Lymphocytes 1.7 Absolute Monocytes 0.6 Absolute Eosinophils 0.2 Absolute Basophils 0.0 Sodium 140.9 Potassium 3.6 Chloride 110 H Carbon Dioxide 23 Anion Gap 8 BUN 15 Creatinine 0.69 Est GFR ( Amer) > 60 Est GFR (Non-Af Amer) > 60 Glucose 126 H Calcium 8.0 L 05/19/18 16:19 Creatine Kinase 528 H Impressions: Head CT 05/19/18 00:00 IMPRESSION: NORMAL BRAIN CT WITHOUT CONTRAST. EVIDENCE OF ACUTE STROKE: NO. Assessment & Plan - Diagnosis (1) Thrombocytopenia Is this a current diagnosis for this admission?: Yes Plan: Plt stable, HIT negative, likely 2nd to RA vs mild ITP - Time Time Spent with patient: 35 or more minutes
[2018-05-27] MEDS ORDERED: MONTELUKAST SODIUM 10 MG TABLET PO SCH (22:00)
== END 2018-05-27 17:45 | DRG 683 ==
LOC: ER 10:37 → EH 15:46 → 4N 22:11
PROVIDERS: ADMIT Family Medicine; ATTEND Family Medicine
PROC: 3E0F73Z Introduction of Anti-inflammatory into Respiratory Tract, Via Natural or Artificial Opening (ICD-10-PCS; principal; 2018-05-19)
DX: N17.9 Acute kidney failure, unspecified (principal); I13.0 Hypertensive heart and chronic kidney disease with heart failure and stage 1 through stage 4 chronic kidney disease, or unspecified chronic kidney disease; Z68.44 Body mass index [BMI] 60.0-69.9, adult; N39.0 Urinary tract infection, site not specified; I50.32 Chronic diastolic (congestive) heart failure; E86.0 Dehydration; G89.4 Chronic pain syndrome; F32.9 Major depressive disorder, single episode, unspecified; N31.9 Neuromuscular dysfunction of bladder, unspecified; R25.1 Tremor, unspecified; D69.6 Thrombocytopenia, unspecified; E11.22 Type 2 diabetes mellitus with diabetic chronic kidney disease; E78.00 Pure hypercholesterolemia, unspecified; E66.01 Morbid (severe) obesity due to excess calories; L89.151 Pressure ulcer of sacral region, stage 1; I25.10 Atherosclerotic heart disease of native coronary artery without angina pectoris; E11.51 Type 2 diabetes mellitus with diabetic peripheral angiopathy without gangrene; E03.9 Hypothyroidism, unspecified; K21.9 Gastro-esophageal reflux disease without esophagitis; K44.9 Diaphragmatic hernia without obstruction or gangrene; M79.7 Fibromyalgia; K90.0 Celiac disease; N31.2 Flaccid neuropathic bladder, not elsewhere classified; J44.9 Chronic obstructive pulmonary disease, unspecified; M06.89 Other specified rheumatoid arthritis, multiple sites; N18.2 Chronic kidney disease, stage 2 (mild); L89.222 Pressure ulcer of left hip, stage 2; Z60.2 Problems related to living alone; B96.1 Klebsiella pneumoniae [K. pneumoniae] as the cause of diseases classified elsewhere; B96.5 Pseudomonas (aeruginosa) (mallei) (pseudomallei) as the cause of diseases classified elsewhere; B95.2 Enterococcus as the cause of diseases classified elsewhere; Z96.641 Presence of right artificial hip joint; Z96.652 Presence of left artificial knee joint; Z88.6 Allergy status to analgesic agent; Z88.3 Allergy status to other anti-infective agents; Z88.0 Allergy status to penicillin; Z88.8 Allergy status to other drugs, medicaments and biological substances; Z79.4 Long term (current) use of insulin; Z79.899 Other long term (current) drug therapy; Z99.3 Dependence on wheelchair; Z90.49 Acquired absence of other specified parts of digestive tract; Z98.84 Bariatric surgery status; Z90.710 Acquired absence of both cervix and uterus; Z79.52 Long term (current) use of systemic steroids; Z82.49 Family history of ischemic heart disease and other diseases of the circulatory system
CPT/HCPCS: 36415; 70450; 80048; 80053; 81001; 82550; 82962; 83615; 83735; 85025; 85027; 85384; 85610; 85730; 86022; 87040; 87086; 87088; 87186; 93005; 93010; 99285; G8978-GP; G8979-GP; J1644; J1815; J2930; J3490; J7030; S0119

== ENCOUNTER → 2018-07-06 | Outpatient (CLI) | payer MEDICARE ==
[2018-07-06 15:09] LABS: AMORPHOUS SEDIMENT,URINE TRACE /HPF; APPEARANCE,URINE CLOUDY; BILIRUBIN,URINE NEGATIVE (NEGATIVE); COLOR,URINE YELLOW; GLUCOSE, URINE NEGATIVE (NEGATIVE); KETONES,URINE NEGATIVE (NEGATIVE); LEUKOCYTE ESTERASE,URINE LARGE (NEGATIVE); NITRITE,URINE NEGATIVE (NEGATIVE); PROTEIN,URINE 100 mg/dL (NEGATIVE); URINE SPECIFIC GRAVITY 1.015; UROBILINOGEN,URINE NEGATIVE mg/dL (<2.0)
== END ==
LOC: PNR 13:31
PROVIDERS: ATTEND Internal Medicine
DX: N39.0 Urinary tract infection, site not specified (principal); N18.9 Chronic kidney disease, unspecified; N17.9 Acute kidney failure, unspecified
CPT/HCPCS: 81001; 87086; 87088; 87186

== ENCOUNTER 2018-09-30 20:40 | Emergency (ER) | payer MEDICARE ==
[2018-09-30 21:10] VITALS: BP 170/76
[2018-09-30 21:34] LABS: ABSOLUTE EOSINOPHILS # (AUTO) 0.2 10^3/uL (0.0-0.6); ABSOLUTE LYMPHOCYTES (AUTO) 2.1 10^3/uL (0.5-4.7); ABSOLUTE MONOCYTES (AUTO) 0.8 10^3/uL (0.1-1.4); ABSOLUTE NEUT (AUTO) 3.8 10^3/uL (1.7-8.2); BASOPHILS % (AUTO) 0.5 % (0-2); EOSINOPHILS % (AUTO) 2.8 % (0-6); HEMATOCRIT 39.3 % (36.0-47.0); HEMOGLOBIN 13.4 g/dL (12.0-15.5); LYMPHOCYTES % (AUTO) 29.7 % (13-45); MEAN CORPUSCULAR HGB CONC 34.2 g/dL (32.0-36.0); MEAN CORPUSCULAR VOLUME 91 fl (80-97); MONOCYTES % (AUTO) 11.8 % (3-13); PLATELET COUNT 203 10^3/uL (150-450); RED BLOOD COUNT 4.34 10^6/uL (3.72-5.28); RED CELL DISTRIBUTION WIDTH 14.1 % (11.5-14.0); SEGMENTED NEUTROPHILS % (AUTO) 55.2 % (42-78); TOTAL CELLS COUNTED % (AUTO) 100 %; WHITE BLOOD COUNT 6.9 10^3/uL (4.0-10.5)
[2018-09-30 21:53] LABS: ANION GAP 8 (5-19); BLOOD UREA NITROGEN 18 mg/dL (7-20); CALCIUM 8.5 mg/dL (8.4-10.2); CARBON DIOXIDE 31 mmol/L (22-30); CHLORIDE 98 mmol/L (98-107); GLUCOSE 180 mg/dL (75-110); SODIUM 137.4 mmol/L (137-145)
--- NOTE | 2018-09-30 22:00 | ER Document Report ---
ED General - General Chief Complaint: Shortness Of Breath Stated Complaint: SHORTNESS OF BREATH Time Seen by Provider: 09/30/18 20:51 Notes: Patient is a 68-year-old female with a past medical history of hypertension, congestive heart failure, morbid obesity, COPD, baseline oxygen dependence, presents with 48 hours of cough, sputum production and shortness of breath increased from baseline. The patient states that her symptoms started after she believes she was exposed to a worker at the facility where she resides who had URI symptoms. The patient states that her symptoms have been progressively worsening since onset an hour a predominantly dull, nagging, cough. Nothing seems to improve or worsen her symptoms. She has been taking medications as directed. She states that she is worried she may have a pneumonia. She denies associated fever or constitutional symptoms. TRAVEL OUTSIDE OF THE [place] IN LAST 30 DAYS: No - Related Data Allergies/Adverse Reactions: ciprofloxacin [From Cipro] Allergy (Severe, Verified 05/19/18 11:05) Anaphylaxis Penicillins Allergy (Severe, Verified 05/20/18 13:29) Anaphylaxis adhesive tape [Adhesive Tape] Adverse Reaction (Severe, Verified 05/19/18 11:05) BLISTERS, SKIN BECOMES RAW indomethacin [From Indocin] Adverse Reaction (Severe, Verified 05/19/18 11:05) CAUSES SWELLING AND INFLAMMATION meperidine HCl [From Demerol] Adverse Reaction (Severe, Verified 05/19/18 11:05) Hallucinations Past Medical History - General Information source: Patient - Social History Smoking Status: Never Smoker Chew tobacco use (# tins/day): No Frequency of alcohol use: None Drug Abuse: None [facility] Family History: Reviewed & Not Pertinent, Hypertension Patient has suicidal ideation: No Patient has homicidal ideation: No - Past Medical History Cardiac Medical History: Reports: Hx Coronary Artery Disease - vascular probs pennie legs, Hx Hypercholesterolemia, Hx Hypertension - on meds, Hx Peripheral Vascular Disease, Hx Heart Murmur Denies: Hx Heart Attack Pulmonary Medical History: Reports: Hx Asthma - severe,neb,inhaler, Hx Bronchitis - in past Denies: Hx COPD, Hx Pneumonia, Hx Respiratory Failure, Hx Sleep Apnea, Hx Tuberculosis Neurological Medical History: Denies: Hx Cerebrovascular Accident, Hx Seizures Endocrine Medical History: Reports: Hx Diabetes Mellitus Type 2, Hx Hypothyroidism Renal/ Medical History: Reports: Hx Ovarian Cysts. Denies: Hx Peritoneal Dialysis GI Medical History: Reports: Hx Gastroesophageal Reflux Disease, Hx Hiatal Hernia, Hx Irritable Bowel. Denies: Hx Pancreatitis Musculoskeletal Medical History: Reports Hx Arthritis - RA,fibromyalgia, Reports Hx Fibromyalgia Psychiatric Medical History: Reports: Hx Depression Traumatic Medical History: Reports: Hx Fractures Past Surgical History: Reports: Hx Cholecystectomy, Hx Gastric Bypass Surgery - Lap Band, post in stomach for lap band , Hx Hysterectomy, Hx Orthopedic Surgery - right hip x3, left knee x1 - Immunizations Hx Diphtheria, Pertussis, Tetanus Vaccination: Yes Hx Pneumococcal Vaccination: 10/11/12 Review of Systems - Review of Systems Notes: Constitutional: Negative for fever. HENT: Negative for sore throat. Eyes: Negative for visual changes. Cardiovascular: Negative for chest pain. Respiratory: Positive for shortness of breath and cough Gastrointestinal: Negative for abdominal pain, vomiting or diarrhea. Genitourinary: Negative for dysuria. Musculoskeletal: Negative for back pain. Skin: Negative for rash. Neurological: Negative for headaches, weakness or numbness. 10 point ROS negative except as marked above and in HPI. Physical Exam - Vital signs Vitals: Temp Pulse Resp BP Pulse Ox 98.7 F 92 22 H 170/76 H 95 09/30/18 20:53 09/30/18 20:53 09/30/18 20:53 09/30/18 20:53 09/30/18 20:53 Interpretation: Hypertensive, Tachypneic Notes: PHYSICAL EXAMINATION: GENERAL: Well-appearing, well-nourished and in no acute distress. HEAD: Atraumatic, normocephalic. EYES: Pupils equal round and reactive to light, extraocular movements intact, sclera anicteric, conjunctiva are normal. ENT: nares patent, oropharynx clear without exudates. Moderately dry mucous membranes. NECK: Normal range of motion, supple without lymphadenopathy LUNGS: Lung exam inhibited by body habitus. Breath sounds clear to auscultation bilaterally and equal. No wheezes rales or rhonchi. HEART: Regular rate and rhythm without murmurs ABDOMEN: Soft, obese abdomen, nontender, normoactive bowel sounds. No guarding, no rebound. No masses appreciated. EXTREMITIES: Normal range of motion, 2+ pitting edema in the bilateral lower extremity that is equal and symmetric no cyanosis. NEUROLOGICAL: No focal neurological deficits. Moves all extremities spontaneously and on command. PSYCH: Normal mood, normal affect. SKIN: Warm, Dry, normal turgor, no rashes or lesions noted. Course - Re-evaluation Re-evalutation: 09/30/18 21:36 Patient presents with 24 hours of cough, congestion and feeling like she may have pneumonia. The patient reports that an aide at the facility where she stays had a URI, entered her room and within 24 hours she developed symptoms. Patient states that she is concerned she may have a pneumonia. She has not had fever or constitutional symptoms. She does not have any evidence of labored breathing hypoxia or tachycardia on assessment. She is morbidly obese, weight is 172 kg. The lung examination is limited due to body habitus but does not reveal any wheezing or rales. Awaiting labs and imaging. 09/30/18 22:20 Harding is without any evidence of pneumonia. Trace pulmonary edema. Patient is already on furosemide 40 mg twice daily, and have advised to continue this. Given the absence of any respiratory distress, hypoxia or tachypnea I do not believe that she requires hospitalization at this point. At this time will discharge with return precautions and follow-up recommendations. Verbal discharge instructions given a the bedside and opportunity for questions given. Medication warnings reviewed. Patient is in agreement with this plan and has verbalized understanding of return precautions and the need for primary care follow-up in the next 24-72 hours. - Vital Signs Vital signs: Temp Pulse Resp BP Pulse Ox 98.7 F 103 H 20 170/76 H 95 10/01/18 00:20 09/30/18 20:53 10/01/18 00:20 09/30/18 20:53 10/01/18 00:20 - Laboratory Result Diagrams: 09/30/18 21:00 09/30/18 21:00 Laboratory results interpreted by me: 09/30/18 09/30/18 21:00 21:00 RDW 14.1 H Carbon Dioxide 31 H Glucose 180 H - Diagnostic Test Radiology reviewed: Image reviewed, Reports reviewed Radiology results interpreted by me: 09/30/18 22:21 Chest x-ray: Trace pulmonary edema, no evidence of pneumonia Discharge - Discharge Clinical Impression: Shortness of breath Diastolic congestive heart failure Qualifiers: Heart failure chronicity: acute on chronic Qualified Code(s): I50.33 - Acute on chronic diastolic (congestive) heart failure Pulmonary edema Qualifiers: Chronicity: acute Qualified Code(s): J81.0 - Acute pulmonary edema Condition: Stable Disposition: HOME-SNF (ED ONLY) Additional Instructions: Your labs today are unremarkable. Your chest x-ray does show a small amount of pulmonary edema which has been treated with an additional dose of Lasix 40 mg IV. Please continue Lasix 40 mg twice daily. Return if you develop worsening shortness of breath, pass out, develop chest pain, or have any other symptoms that are worrisome to you. Referrals: NAYLA GEE MD [Primary Care Provider] - Follow up as needed
[2018-09-30 22:05] LABS: NT PRO BNP 176 pg/mL (5-900)
--- NOTE | 2018-09-30 22:06 | RADIOLOGY REPORT (SQ) ---
XR CHEST 1 VIEW HISTORY: Shortness of breath. COMPARISON: 05/04/2018 FINDINGS: Query cardiomegaly with mild pulmonary vascular congestion. The lungs are clear. No pleural effusion or pneumothorax is identified. IMPRESSION: Mild pulmonary edema. No large pleural effusions.
[2018-09-30 22:11] LABS: TROPONIN I < 0.012 ng/mL
[2018-09-30] MEDS ORDERED: FUROSEMIDE INJ/PF 40 MG/4 ML SDV IV ONE (22:21)
--- NOTE | 2018-10-01 11:38 | EKG REPORT ---
SEVERITY:- DEFECTIVE ECG - NSR W FIRST DEGREE AVB LEFT AXIS DEVIATION LOW VOLTAGE PRECORDIAL LEADS : Confirmed by: Aly James MD 01-Oct-2018 11:38:24
== END 2018-10-01 02:15 ==
LOC: ER 20:40
DX: I50.33 Acute on chronic diastolic (congestive) heart failure (principal); J81.0 Acute pulmonary edema; R06.02 Shortness of breath; R05 Cough; I10 Essential (primary) hypertension; I50.9 Heart failure, unspecified; E66.01 Morbid (severe) obesity due to excess calories; J44.9 Chronic obstructive pulmonary disease, unspecified; I11.0 Hypertensive heart disease with heart failure; Z99.81 Dependence on supplemental oxygen; Z79.899 Other long term (current) drug therapy
CPT/HCPCS: 93005; 99285; 96374; 36415; 85025; 80048; 84484; 83880; 71045; 93010; J1940

== ENCOUNTER 2018-11-18 22:14 | Emergency (ER) | payer MEDICARE, MEDICAID ==
[2018-11-18] MEDS ORDERED: ACETAMINOPHEN 325 MG TABLET PO ONE (22:42)
[2018-11-18] MEDS ORDERED: OXYCODONE HCL IR 5 MG TABLET PO ONE (22:42)
[2018-11-18] MEDS ORDERED: LIDOCAINE 5% (700 MG) TRANSDERMAL ADH..PATCH TP ONE (23:00)
[2018-11-18] MEDS ORDERED: HYDROMORPHONE HCL INJ/PF 2 MG/ML AMPULE IM PRN (23:00)
--- NOTE | 2018-11-18 23:01 | ER Document Report ---
ED General - General Chief Complaint: Arm Pain Stated Complaint: RIGHT ARM PAIN Time Seen by Provider: 11/18/18 22:41 Primary Care Provider: NAYLA GEE MD [Primary Care Provider] - Follow up as needed Notes: Patient is a 68-year-old female with a past medical history of morbid obesity, diabetes, rheumatoid arthritis, on chronic pain control who presents complaining of 1 week of right biceps head pain. Patient states that she has been diagnosed with a bicep tendon rupture by physical therapy, came to the emergency department today as she felt she was not getting appropriate assessment at the nursing facility. The pain in the arm is described as a throbbing, aching, constant pain. She has noticed swelling to the area. She has been taking 30 mg of oxycodone without any relief. Moving the arm worsens the pain. Denies any associated weakness or numbness. No history of similar injury in the past. TRAVEL OUTSIDE OF THE [place] IN LAST 30 DAYS: No - Related Data Allergies/Adverse Reactions: ciprofloxacin [From Cipro] Allergy (Severe, Verified 05/19/18 11:05) Anaphylaxis Penicillins Allergy (Severe, Verified 05/20/18 13:29) Anaphylaxis adhesive tape [Adhesive Tape] Adverse Reaction (Severe, Verified 05/19/18 11:05) BLISTERS, SKIN BECOMES RAW indomethacin [From Indocin] Adverse Reaction (Severe, Verified 05/19/18 11:05) CAUSES SWELLING AND INFLAMMATION meperidine HCl [From Demerol] Adverse Reaction (Severe, Verified 05/19/18 11:05) Hallucinations Past Medical History - General Information source: Patient - Social History Smoking Status: Never Smoker Frequency of alcohol use: None Drug Abuse: None Lives with: [facility] Family History: Reviewed & Not Pertinent, Hypertension - Past Medical History Cardiac Medical History: Reports: Hx Coronary Artery Disease - vascular probs pennie legs, Hx Hypercholesterolemia, Hx Hypertension - on meds, Hx Peripheral Vascular Disease, Hx Heart Murmur Denies: Hx Heart Attack Pulmonary Medical History: Reports: Hx Asthma - severe,neb,inhaler, Hx Bronchitis - in past Denies: Hx COPD, Hx Pneumonia, Hx Respiratory Failure, Hx Sleep Apnea, Hx Tuberculosis Neurological Medical History: Denies: Hx Cerebrovascular Accident, Hx Seizures Endocrine Medical History: Reports: Hx Diabetes Mellitus Type 2, Hx Hypothyroidism Renal/ Medical History: Reports: Hx Ovarian Cysts. Denies: Hx Peritoneal Dialysis GI Medical History: Reports: Hx Gastroesophageal Reflux Disease, Hx Hiatal Hernia, Hx Irritable Bowel. Denies: Hx Pancreatitis Musculoskeletal Medical History: Reports Hx Arthritis - RA,fibromyalgia, Reports Hx Fibromyalgia Psychiatric Medical History: Reports: Hx Depression Traumatic Medical History: Reports: Hx Fractures Past Surgical History: Reports: Hx Cholecystectomy, Hx Gastric Bypass Surgery - Lap Band, post in stomach for lap band , Hx Hysterectomy, Hx Orthopedic Surgery - right hip x3, left knee x1 - Immunizations Hx Diphtheria, Pertussis, Tetanus Vaccination: Yes Hx Pneumococcal Vaccination: 10/11/12 Review of Systems - Review of Systems Notes: Constitutional: Negative for fever. HENT: Negative for sore throat. Eyes: Negative for visual changes. Cardiovascular: Negative for chest pain. Respiratory: Negative for shortness of breath. Gastrointestinal: Negative for abdominal pain, vomiting or diarrhea. Genitourinary: Negative for dysuria. Musculoskeletal: Positive for right upper extremity pain Skin: Negative for rash. Neurological: Negative for headaches, weakness or numbness. 10 point ROS negative except as marked above and in HPI. Physical Exam - Vital signs Vitals: Temp Pulse Resp BP Pulse Ox 98.6 F 85 22 H 158/64 H 98 11/18/18 22:31 11/18/18 22:31 11/18/18 22:31 11/18/18 22:31 11/18/18 22:31 Interpretation: Hypertensive Notes: PHYSICAL EXAMINATION: GENERAL: Well-appearing, well-nourished and in no acute distress. HEAD: Atraumatic, normocephalic. EYES: Pupils equal round and reactive to light, extraocular movements intact, sclera anicteric, conjunctiva are normal. ENT: nares patent, oropharynx clear without exudates. Moist mucous membranes. NECK: Normal range of motion, supple without lymphadenopathy LUNGS: Breath sounds clear to auscultation bilaterally and equal. No wheezes rales or rhonchi. HEART: Regular rate and rhythm without murmurs, 2+ radial pulses bilaterally. Capillary refill less than 1 second in all digits the right hand ABDOMEN: Soft, nontender, normoactive bowel sounds. No guarding, no rebound. No masses appreciated. EXTREMITIES: Notable swelling to the right biceps with associated ecchymosis. Full flexion and extension at the elbow. NEUROLOGICAL: No focal neurological deficits. Moves all extremities spontaneously and on command. PSYCH: Normal mood, normal affect. SKIN: Warm, Dry, normal turgor, no rashes or lesions noted. Course - Re-evaluation Re-evalutation: 11/18/18 23:00 Patient presents with findings most consistent with a torn biceps head. Has been present for the past 1 week. Patient came from nursing facilities as she states that nobody has examined her properly. She already takes oxycodone 30 mg several times daily for chronic rheumatoid arthritis pain. Neurovascularly intact. Exam otherwise unremarkable. X-rays of the shoulder and elbow pending. Sling in place. Anticipate discharge with orthopedic follow-up. - Vital Signs Vital signs: Temp Pulse Resp BP Pulse Ox 98.7 F 83 20 142/80 H 97 11/19/18 02:52 11/19/18 02:52 11/19/18 02:52 11/19/18 02:52 11/19/18 02:52 - Diagnostic Test Radiology reviewed: Image reviewed, Reports reviewed Radiology results interpreted by me: 11/19/18 00:03 R shoulder xray: No acute fractures R elbow xray: No acute fractures Discharge - Discharge Clinical Impression: Right upper limb pain Rupture of long head biceps tendon Qualifiers: Encounter type: initial encounter Laterality: right Qualified Code(s): S46.111A - Strain of muscle, fascia and tendon of long head of biceps, right arm, initial encounter Condition: Good Disposition: HOME, SELF-CARE Additional Instructions: Your xrays do not show any fractures. Please wear the sling for comfort. You need to follow-up with orthopedic surgery for consideration of an MRI to confirm the diagnosis of a biceps head rupture. Please discuss with your primary doctor regarding pain control given that you are already on chronic pain medications. Return if you have worsening swelling, increasing pain, fever >100.4F, loss of sensation, weakness, or any other symptoms that are concerning to you. Referrals: NAYLA GEE MD [Primary Care Provider] - Follow up as needed
--- NOTE | 2018-11-18 23:48 | RADIOLOGY REPORT (SQ) ---
EXAM DESCRIPTION: XR ELBOW 1-2 VIEWS COMPLETED DATE/TME: 11/18/2018 22:59 CLINICAL HISTORY: 68 years, Female, pain, swelling COMPARISON: None. NUMBER OF VIEWS: 2 TECHNIQUE: 2 view right elbow LIMITATIONS: None. FINDINGS: Suboptimal positioning however no radiographic evidence for an acute fracture or dislocation. No definitive joint effusion although lateral view is suboptimal. IMPRESSION: No radiographic evidence for acute abnormality copyright 2010 [employer]- All Rights Reserved
--- NOTE | 2018-11-18 23:49 | RADIOLOGY REPORT (SQ) ---
EXAM DESCRIPTION: XR SHOULDER 2 OR MORE VIEWS COMPLETED DATE/TME: 11/18/2018 22:59 CLINICAL HISTORY: 68 years, Female, pain, swelling COMPARISON: Right humerus 02/10/2018 NUMBER OF VIEWS: 2 TECHNIQUE: 2 view right shoulder LIMITATIONS: None. FINDINGS: Osteopenia. Suggestion of slight inferior subluxation of the humeral head relative to the bony glenoid. Degenerative changes of the right shoulder with multiple loose bodies of the glenohumeral joint as well. No radiographic evidence for acute fracture. IMPRESSION: Inferior subluxation of the humeral head is suggested. Osteopenia with advanced degenerative changes and loose body formation copyright 2010 [employer]- All Rights Reserved
[2018-11-19] MEDS ORDERED: LIDOCAINE 5% (700 MG) TRANSDERMAL ADH..PATCH TP ONE (01:44)
[2018-11-19 02:54] VITALS: BP 142/80
== END 2018-11-19 02:52 | disposition home or self-care (01) ==
LOC: ER 22:14
DX: S46.111A Strain of muscle, fascia and tendon of long head of biceps, right arm, initial encounter (principal); X58.XXXA Exposure to other specified factors, initial encounter; M06.9 Rheumatoid arthritis, unspecified; Z79.891 Long term (current) use of opiate analgesic; I25.10 Atherosclerotic heart disease of native coronary artery without angina pectoris; I10 Essential (primary) hypertension; E11.51 Type 2 diabetes mellitus with diabetic peripheral angiopathy without gangrene; J45.909 Unspecified asthma, uncomplicated; Z88.1 Allergy status to other antibiotic agents; Z88.0 Allergy status to penicillin
CPT/HCPCS: 99283; 96372; 73070; 73030; J1170

== ENCOUNTER 2019-02-17 11:41 | Emergency (ER) | payer MEDICARE, MEDICAID ==
[2019-02-17] MEDS ORDERED: FLUCONAZOLE 100 MG TABLET PO ONE (12:35)
--- NOTE | 2019-02-17 12:37 | ER Document Report ---
ED General - General Chief Complaint: Problem with Urinary Catheter Stated Complaint: ABDOMINAL PAIN Time Seen by Provider: 02/17/19 11:49 Primary Care Provider: NAYLA GEE MD [Primary Care Provider] - Follow up in 3-5 days Notes: Patient is a 68-year-old female with history of suprapubic catheter that presents to the emergency department for chief complaint of blood in the catheter. Patient lives at a detention facility, today they are exchanging the patient's suprapubic catheter, and it took the nurse several attempts to insert the catheter, and as a result, there was some blood in the urine, and they sent her to the emergency department. Patient denies having any pain at this time, and states that the urine shortly after cleared up. She denies any fevers, chills, nausea, vomiting, chest pain, shortness of breath or difficulty breathing. Overall she is been feeling at her baseline, without any other complaints at this time. Past Medical History: Morbid obesity, neurogenic bladder, CHF, hypertension, diabetes, peripheral neuropathy Past Surgical History: Suprapubic catheter, hysterectomy, cholecystectomy Social History: Lives at detention facility, denies tobacco, alcohol or drug use. Family History: Reviewed and noncontributory for presenting illness Allergies: Reviewed, see documented allergy list. REVIEW OF SYSTEMS: Other than noted above, the 12 point review of systems was reviewed with the patient and were negative, all pertinent findings are included in the HPI. PHYSICAL EXAMINATION: Vital signs reviewed, nursing noted reviewed. GENERAL: Morbidly obese female, no acute distress HEAD: Atraumatic, normocephalic. EYES: Eyes appear normal, extraocular movements intact, sclera anicteric, conjunctiva are normal. ENT: nares patent, oropharynx clear without exudates. Moist mucous membranes. NECK: Normal range of motion, supple without lymphadenopathy LUNGS: Breath sounds clear to auscultation bilaterally and equal. No wheezes rales or rhonchi. HEART: Regular rate and rhythm without murmurs ABDOMEN: Soft, obese, nontender, normoactive bowel sounds. No rebound, guarding, or rigidity. No masses appreciated. There is a suprapubic catheter noted, 24 Urdu, actively draining without issue, there is some sediment noted in the urine, there is a mild what appears to be yeast infection adjacent to the insertion site of the suprapubic catheter, no active discharge or purulent discharge at this time. EXTREMITIES: Nontender, good range of motion, stasis dermatitis, bilateral lower extremity edema, 2+ to the proximal tibias NEUROLOGICAL: No focal neurological deficits. Moves all extremities spontaneously Motor and sensory grossly intact on exam. PSYCH: Normal mood, normal affect. SKIN: Warm, Dry, normal turgor, candidal rash on the skin at the insertion site of the suprapubic catheter TRAVEL OUTSIDE OF THE [place] IN LAST 30 DAYS: No - Related Data Allergies/Adverse Reactions: ciprofloxacin [From Cipro] Allergy (Severe, Verified 02/17/19 12:05) Anaphylaxis Penicillins Allergy (Severe, Verified 02/17/19 12:05) Anaphylaxis adhesive tape [Adhesive Tape] Adverse Reaction (Severe, Verified 02/17/19 12:05) BLISTERS, SKIN BECOMES RAW indomethacin [From Indocin] Adverse Reaction (Severe, Verified 02/17/19 12:05) CAUSES SWELLING AND INFLAMMATION meperidine HCl [From Demerol] Adverse Reaction (Severe, Verified 02/17/19 12:05) Hallucinations Past Medical History - Social History Smoking Status: Never Smoker Family History: Reviewed & Not Pertinent, Hypertension Patient has suicidal ideation: No Patient has homicidal ideation: No - Past Medical History Cardiac Medical History: Reports: Hx Coronary Artery Disease - vascular probs pennie legs, Hx Hypercholesterolemia, Hx Hypertension - on meds, Hx Peripheral Vascular Disease, Hx Heart Murmur Denies: Hx Heart Attack Pulmonary Medical History: Reports: Hx Asthma - severe,neb,inhaler, Hx Bronchitis - in past Denies: Hx COPD, Hx Pneumonia, Hx Respiratory Failure, Hx Sleep Apnea, Hx Tuberculosis Neurological Medical History: Denies: Hx Cerebrovascular Accident, Hx Seizures Endocrine Medical History: Reports: Hx Diabetes Mellitus Type 2, Hx Hypothyroidism Renal/ Medical History: Reports: Hx Ovarian Cysts. Denies: Hx Peritoneal Dialysis GI Medical History: Reports: Hx Gastroesophageal Reflux Disease, Hx Hiatal Hernia, Hx Irritable Bowel. Denies: Hx Pancreatitis Musculoskeletal Medical History: Reports Hx Arthritis - RA,fibromyalgia, Reports Hx Fibromyalgia, Denies Hx Systemic Lupus Erythematosus Psychiatric Medical History: Reports: Hx Depression Traumatic Medical History: Reports: Hx Fractures Past Surgical History: Reports: Hx Cholecystectomy, Hx Gastric Bypass Surgery - Lap Band, post in stomach for lap band , Hx Hysterectomy, Hx Orthopedic Surgery - right hip x3, left knee x1 - Immunizations Hx Diphtheria, Pertussis, Tetanus Vaccination: Yes Hx Pneumococcal Vaccination: 10/11/12 Physical Exam - Vital signs Vitals: Temp Pulse Resp BP Pulse Ox 97.7 F 80 20 126/61 H 95 02/17/19 11:51 02/17/19 11:51 02/17/19 11:51 02/17/19 11:51 02/17/19 11:51 Course - Re-evaluation Re-evalutation: Patient seen and examined vital signs reviewed. Patient was evaluated and treated as appropriate for the patient's presenting symptoms and complaint, with consideration of any critical or life threatening conditions that may be associated with their obtained history and exam as noted above. Patient was treated with Diflucan 150 mg, and dressing change of her suprapubic catheter The patient was re-evaluated and was stable, I believe the patient had a mild yeast infection, and mild hematuria, due to traumatic insertion of suprapubic catheter, which is now cleared up quite well, we flush the patient's catheter, 200 mL's of saline, without any issues and return well without any clots or significant hematuria. Urinalysis was not pursued as this patient is not exhibiting any signs of acute infection, she has no suprapubic pain, fever, and otherwise feels well, and likely has colonized urine, which would not need to be treated with antibiotics at this time. Evaluation was most consistent with suprapubic catheter evaluation, candidal infection Plan of care was discussed with the patient at this point, after careful consideration I feel that that patient can be discharged from the emergency department, the patient was educated treatments and reasons to return to the emergency department based on their presumed diagnosis as noted above, they were advised to followup with a primary care physician in 2-3 days. Patient was agreeable to plan of care. *Note is created using voice recognition software and may contain spelling, syntax or grammatical errors. - Vital Signs Vital signs: Temp Pulse Resp BP Pulse Ox 97.4 F 64 20 139/50 H 95 02/17/19 13:10 02/17/19 13:10 02/17/19 13:10 02/17/19 13:10 02/17/19 11:51 Discharge - Discharge Clinical Impression: Encounter for suprapubic catheter care, Yeast infection of the skin Condition: Stable Disposition: HOME-SNF (ED ONLY) Instructions: Sales Catheter Care (OM) Additional Instructions: Your catheter appeared to be functioning well, it did appear to have a mild yeast infection, surrounding the catheter, you have been given a dose of Diflucan today we recommend an additional dose of Diflucan 150mg po to be taken tomorrow as well, and please follow-up with the primary care, if you notice any worsening bleeding, or the catheter is no longer flowing, and you develop significant pain, do not hesitate to return to the emergency department. Prescriptions: Fluconazole [Diflucan] 150 mg PO ONCE #1 tablet Referrals: NAYLA GEE MD [Primary Care Provider] - Follow up in 3-5 days
[2019-02-17 13:11] VITALS: BP 139/50
== END 2019-02-17 13:10 ==
LOC: ER 11:41
DX: Z46.6 Encounter for fitting and adjustment of urinary device (principal); B37.2 Candidiasis of skin and nail; E66.01 Morbid (severe) obesity due to excess calories; N31.9 Neuromuscular dysfunction of bladder, unspecified; I50.9 Heart failure, unspecified; I11.0 Hypertensive heart disease with heart failure; E11.9 Type 2 diabetes mellitus without complications; Z90.710 Acquired absence of both cervix and uterus; Z90.49 Acquired absence of other specified parts of digestive tract; Z88.3 Allergy status to other anti-infective agents; Z88.0 Allergy status to penicillin
CPT/HCPCS: 99283; A9270

== ENCOUNTER 2019-05-10 17:27 | Emergency (ER) | payer MEDICARE, MEDICAID ==
[2019-05-10 18:04] LABS: ABSOLUTE BASOPHILS # (AUTO) 0.1 10^3/uL (0.0-0.2); ABSOLUTE EOSINOPHILS # (AUTO) 0.1 10^3/uL (0.0-0.6); ABSOLUTE LYMPHOCYTES (AUTO) 2.3 10^3/uL (0.5-4.7); ABSOLUTE MONOCYTES (AUTO) 0.6 10^3/uL (0.1-1.4); ABSOLUTE NEUT (AUTO) 3.5 10^3/uL (1.7-8.2); BASOPHILS % (AUTO) 1.3 % (0-2); EOSINOPHILS % (AUTO) 2.2 % (0-6); HEMATOCRIT 41.1 % (36.0-47.0); HEMOGLOBIN 13.5 g/dL (12.0-15.5); MEAN CORPUSCULAR HEMOGLOBIN 29.6 pg (27.0-33.4); MEAN CORPUSCULAR VOLUME 90 fl (80-97); MONOCYTES % (AUTO) 9.4 % (3-13); PLATELET COUNT 221 10^3/uL (150-450); RED BLOOD COUNT 4.58 10^6/uL (3.72-5.28); RED CELL DISTRIBUTION WIDTH 15.3 % (11.5-14.0); SEGMENTED NEUTROPHILS % (AUTO) 52.1 % (42-78); TOTAL CELLS COUNTED % (AUTO) 100 %; WHITE BLOOD COUNT 6.6 10^3/uL (4.0-10.5)
[2019-05-10 18:09] LABS: APPEARANCE,URINE SLIGHTLY-CLOUDY; BILIRUBIN,URINE NEGATIVE (NEGATIVE); COLOR,URINE YELLOW; GLUCOSE, URINE NEGATIVE (NEGATIVE); KETONES,URINE NEGATIVE (NEGATIVE); LEUKOCYTE ESTERASE,URINE LARGE (NEGATIVE); NITRITE,URINE POSITIVE (NEGATIVE); PROTEIN,URINE NEGATIVE (NEGATIVE); URINE SPECIFIC GRAVITY 1.011; UROBILINOGEN,URINE NEGATIVE mg/dL (<2.0)
[2019-05-10 18:27] LABS: ALANINE AMINOTRANSFERASE 12 U/L (9-52); ALBUMIN 3.7 g/dL (3.5-5.0); ALKALINE PHOSPHATASE 77 U/L (38-126); ANION GAP 6 (5-19); ASPARTATE AMINO TRANSFERASE 20 U/L (14-36); BILIRUBIN,DIRECT 0.3 mg/dL (0.0-0.4); BILIRUBIN,TOTAL 0.3 mg/dL (0.2-1.3); BLOOD UREA NITROGEN 28 mg/dL (7-20); CALCIUM 8.8 mg/dL (8.4-10.2); CARBON DIOXIDE 32 mmol/L (22-30); CHLORIDE 99 mmol/L (98-107); GLUCOSE 150 mg/dL (75-110); POTASSIUM 4.4 mmol/L (3.6-5.0); TOTAL PROTEIN 6.9 g/dL (6.3-8.2)
[2019-05-10] MEDS ORDERED: FUROSEMIDE 40 MG TABLET PO ONE (18:43)
[2019-05-10] MEDS ORDERED: OXYCODONE HCL SR 10 MG TABLET PO ONE (18:43)
[2019-05-10] MEDS ORDERED: VANCOMYCIN HCL INJ 1000 MG VIAL IV ONE (18:44)
[2019-05-10] MEDS ORDERED: MEROPENEM 1 GM VIAL IV ONE (18:44)
--- NOTE | 2019-05-10 18:49 | ER Document Report ---
ED General - General Chief Complaint: Urinary Problem Stated Complaint: URINARY PROBLEM Time Seen by Provider: 05/10/19 18:07 Primary Care Provider: NAYLA GEE MD [Primary Care Provider] - Follow up as needed TRAVEL OUTSIDE OF THE [place] IN LAST 30 DAYS: No - HPI Notes: Patient is a 69-year-old female who presents to the emergency department for evaluation from [facility]. She continues to have symptoms of a urinary tract infection. She states she has severe burning with extravasation of urine from her suprapubic catheter site. She denies any fevers or chills. No nausea or vomiting. She has been on antibiotics for over a week and states she has not had any significant relief. Patient also states that some time ago and the aide was moving her in bed. She pulled hard on her right lower extremity, injuring her right hip. She had a single view x-ray, but states she is had significant pain with walking since then. She states that recently when walking she also hurt her right knee. She states her pain is a 7 out of 10. She states is worse with movement, describes a sharp and stabbing. She is concerned about those issues as well. Otherwise she been taking her medications as prescribed. Denies any other acute complaints or concerns. - Related Data Allergies/Adverse Reactions: ciprofloxacin [From Cipro] Allergy (Severe, Verified 02/17/19 12:05) Anaphylaxis Penicillins Allergy (Severe, Verified 02/17/19 12:05) Anaphylaxis adhesive tape [Adhesive Tape] Adverse Reaction (Severe, Verified 02/17/19 12:05) BLISTERS, SKIN BECOMES RAW indomethacin [From Indocin] Adverse Reaction (Severe, Verified 02/17/19 12:05) CAUSES SWELLING AND INFLAMMATION meperidine HCl [From Demerol] Adverse Reaction (Severe, Verified 02/17/19 12:05) Hallucinations Past Medical History - General Information source: Patient, [facility] Records - Social History Smoking Status: Never Smoker Frequency of alcohol use: None Drug Abuse: None Family History: Reviewed & Not Pertinent, Hypertension Patient has suicidal ideation: No Patient has homicidal ideation: No - Past Medical History Cardiac Medical History: Reports: Hx Hypercholesterolemia, Hx Hypertension - on meds, Hx Peripheral Vascular Disease, Hx Heart Murmur Denies: Hx Heart Attack Pulmonary Medical History: Reports: Hx Asthma - severe,neb,inhaler, Hx Bronchiti s - in past Denies: Hx COPD, Hx Pneumonia, Hx Respiratory Failure, Hx Sleep Apnea, Hx Tuberculosis Neurological Medical History: Denies: Hx Cerebrovascular Accident, Hx Seizures Endocrine Medical History: Reports: Hx Diabetes Mellitus Type 2, Hx Hyp othyroidism Renal/ Medical History: Reports: Hx Ovarian Cysts. Denies: Hx Peritoneal Dialysis GI Medical History: Reports: Hx Gastroesophageal Reflux Disease, Hx Hiatal Hernia, Hx Irritable Bowel. Denies: Hx Pancreatitis Musculoskeletal Medical History: Reports Hx Arthritis - RA,fibromyalgia, Reports Hx Fibromyalgia, Denies Hx Systemic Lupus Erythematosus Psychiatric Medical History: Reports: Hx Depression Traumatic Medical History: Reports: Hx Fractures Past Surgical History: Reports: Hx Cholecystectomy, Hx Gastric Bypass Surgery - Lap Band, post in stomach for lap band , Hx Hysterectomy, Hx Orthopedic Surgery - right hip x3, left knee x1 - Immunizations Hx Diphtheria, Pertussis, Tetanus Vaccination: Yes Hx Pneumococcal Vaccination: 10/11/12 Review of Systems - Review of Systems Constitutional: No symptoms reported EENT: No symptoms reported Cardiovascular: No symptoms reported Respiratory: No symptoms reported Gastrointestinal: No symptoms reported Genitourinary: See HPI Female Genitourinary: No symptoms reported Musculoskeletal: See HPI Skin: See HPI Neurological/Psychological: No symptoms reported Physical Exam - Vital signs Vitals: Temp Pulse Resp BP 98.2 F 71 20 141/49 H 05/10/19 17:55 05/10/19 17:55 05/10/19 17:55 05/10/19 17:55 - Notes Notes: This is a morbidly obese 69-year-old female who appears her stated age in no acute distress. Vital signs reviewed, please refer to chart. Head is normocephalic, atraumatic. Pupils equal round, reactive to light. Neck is supple without meningismus. Heart is regular rate and rhythm. Lungs are clear to auscultation bilaterally. Abdomen is soft, nontender, normoactive bowel sounds throughout. Prepubic catheter is in place without surrounding erythema or induration. Extremities without cyanosis, clubbing. Posterior calves are nontender. Peripheral pulses are equal. Skin is warm and dry. Lower extremity is no obvious deformity. She has some tenderness palpation of the greater trochanter. Range of motion is limited actively secondary to pain, and passively secondary to body habitus. There is no gross deformity, neurovascularly intact distally. Patient is awake, alert, neurological exam is nonfocal. Course - Re-evaluation Re-evalutation: 05/10/19 22:41 Patient presents to the emergency department for evaluation. She has a known UTI. Urine here and again was nitrite positive. It was resent for culture. I did review patient's most recent urine culture from May 01. There was significant tetracycline sensitivity at the time of initial culture. Unfortunately this patient is allergic to penicillin as well as Cipro, and fluoroquinolones would offer the best treatment option. Given this information I did go ahead and order Merrem as well as vancomycin. During the course of the administration of the vancomycin, patient began complaining of some periorbital itching. At that time she was found to have some periorbital erythema. The rate of the Vigamox and was slowed, she was also given IV Benadryl. Patient is feeling significantly improved. She has had no fevers. No nausea or vomiting. She has no leukocytosis. I will go ahead and send her home, she is to continue to take the doxycycline at primary she had been prescribed. In regards to her films, there was no signs of any acute fractures. This was communicated to the patient as well. She is to follow-up with her primary care doctor next week. She is to return to the emergency department with worsening or new concerning symptoms of any sort. 05/10/19 22:43 - Vital Signs Vital signs: Temp Pulse Resp BP Pulse Ox 97.6 F 61 18 134/54 H 99 05/10/19 22:07 05/10/19 22:07 05/10/19 22:07 05/10/19 22:07 05/10/19 22:07 - Laboratory Result Diagrams: 05/10/19 17:45 05/10/19 17:45 Laboratory results interpreted by me: 05/10/19 05/10/19 05/10/19 17:45 17:45 17:45 RDW 15.3 H Carbon Dioxide 32 H BUN 28 H Glucose 150 H Urine Blood SMALL H Urine Nitrite POSITIVE H Ur Leukocyte Esterase LARGE H - Diagnostic Test Radiology reviewed: Reports reviewed Radiology results interpreted by me: 05/10/19 22:44 Hip/Pelvis X-Ray 05/10/19 18:46 IMPRESSION: NO RADIOGRAPHIC EVIDENCE OF ACUTE INJURY. Knee X-Ray 05/10/19 18:46 IMPRESSION: NO FRACTURE. Discharge - Discharge Clinical Impression: Right hip pain Urinary tract infection Qualifiers: Urinary tract infection type: catheter-associated UTI Indwelling urinary catheter type: cystostomy catheter Encounter type: subsequent encounter Qualified Code(s): T83.510D - Infection and inflammatory reaction due to cystostomy catheter, subsequent encounter; N39.0 - Urinary tract infection, site not specified Right knee pain Qualifiers: Chronicity: acute Qualified Code(s): M25.561 - Pain in right knee Condition: Stable Disposition: ASSISTED [facility] Instructions: Urinary Tract Infection ([facility]) Additional Instructions: Continue to take the doxycycline as it is prescribed until it is gone. Follow- up with your doctor next week. Return to the emergency department with worsening or new concerning symptoms of any sort. Referrals: NAYLA GEE MD [Primary Care Provider] - Follow up as needed
--- NOTE | 2019-05-10 19:59 | RADIOLOGY REPORT (SQ) ---
EXAM DESCRIPTION: HIP RIGHT AP/LATERAL COMPLETED DATE/TIME: 05/10/2019 7:17 pm REASON FOR STUDY: injury, pain COMPARISON: 03/19/2014 NUMBER OF VIEWS: Two views. TECHNIQUE: AP pelvis and additional frog-leg view of the right hip. LIMITATIONS: None. FINDINGS: MINERALIZATION: Normal. RIGHT HIP: No fracture or dislocation. Total arthroplasty hardware in expected position. . LEFT HIP: No fracture or dislocation. PUBIS AND ISCHIUM: No fracture. PELVIS: No fracture. SACRUM: No fracture or dislocation. No worrisome bone lesions. LOWER LUMBAR SPINE: No fracture or dislocation. No worrisome bone lesions. No significant disc disea se. SOFT TISSUES: No findings. OTHER: No other significant finding. IMPRESSION: NO RADIOGRAPHIC EVIDENCE OF ACUTE INJURY. TECHNICAL DOCUMENTATION: JOB ID: [id number] [place]-72 2010 [employer]- All Rights Reserved Reading location - IP/workstation name: [email or web address]
--- NOTE | 2019-05-10 20:01 | RADIOLOGY REPORT (SQ) ---
EXAM DESCRIPTION: KNEE RIGHT 3 VIEWS COMPLETED DATE/TIME: 05/10/2019 7:19 pm REASON FOR STUDY: injury, pain COMPARISON: 10/30/2016 EXAM PARAMETERS: NUMBER OF VIEWS: Three views. TECHNIQUE: AP, lateral and oblique radiographic images acquired of the right knee. LIMITATIONS: None. FINDINGS: MINERALIZATION: Normal. BONES: No acute fracture or dislocation. Severe medial tibia-femoral compartment arthrosis. Moderat e lateral compartment and patellofemoral arthrosis. JOINTS: Small effusion. SOFT TISSUES: No significant soft tissue swelling. No radiopaque foreign body. OTHER: No other significant finding. IMPRESSION: NO FRACTURE. TECHNICAL DOCUMENTATION: JOB ID: [id number] [place]-72 2010 [employer]- All Rights Reserved Reading location - IP/workstation name: [email or web address]
[2019-05-10] MEDS ORDERED: DIPHENHYDRAMINE HCL 50 MG/ML VIAL IV ONE (21:16)
[2019-05-10 23:11] VITALS: BP 136/56
== END 2019-05-10 23:42 ==
LOC: ER 17:27
DX: T83.511A Infection and inflammatory reaction due to indwelling urethral catheter, initial encounter (principal); N39.0 Urinary tract infection, site not specified; M25.551 Pain in right hip; X50.0XXA Overexertion from strenuous movement or load, initial encounter; R39.0 Extravasation of urine; M25.561 Pain in right knee; L29.9 Pruritus, unspecified; L53.9 Erythematous condition, unspecified; I10 Essential (primary) hypertension; J45.909 Unspecified asthma, uncomplicated; E66.01 Morbid (severe) obesity due to excess calories; Z98.84 Bariatric surgery status; Z88.1 Allergy status to other antibiotic agents; Z87.892 Personal history of anaphylaxis; Z88.0 Allergy status to penicillin
CPT/HCPCS: 99284; 96375; 96365; 96366; 96368; 36415; 87040; 87086; 85025; 87088; 80053; 81001; 87186; 73502; 73562; J1200; A9270 ×2; J3370; J2185

== ENCOUNTER 2019-05-18 16:04 | Observation (INO) | payer MEDICARE, MEDICAID ==
--- NOTE | 2019-05-18 16:50 | ER Document Report ---
ED Medical Screen (RME) - General Chief Complaint: Abdominal Pain Stated Complaint: ABDOMINAL PAIN Time Seen by Provider: 05/18/19 16:42 Primary Care Provider: NAYLA GEE MD [Primary Care Provider] - Follow up as needed Mode of Arrival: Wheelchair Information source: Patient Notes: 69-year-old female presents to ED for complaint of nausea and vomiting and d iarrhea off and on for a week. She states today she had no nausea vomiting or diarrhea but she had an much increase in pain especially around her stomach. She states she has a history of a LAP-BAND and it feels like when her lap band was too tight and she had to have. She states that the food is backing up into her. She states she has had a LAP-BAND for 7 years. She is alert oriented respirations regular and unlabored. She also has a history of juvenile rheumatoid arthritis SVT her blood pressure asthma diabetes hypothyroid ITP and Sjogren. She states she had cardiac ablation cholecystectomy possible hysterectomy breast biopsy right hip replacement left knee replacement hiatal hernia repair and a suprapubic catheter. I have greeted and performed a rapid initial assessment of this patient. A comprehensive ED assessment and evaluation of the patient, analysis of test results and completion of medical decision making process will be conducted by an additional ED providers. Dictation of this chart was performed using voice recognition software; therefore, there may be some unintended grammatical errors. TRAVEL OUTSIDE OF THE [place] IN LAST 30 DAYS: No - Related Data Allergies/Adverse Reactions: ciprofloxacin [From Cipro] Allergy (Severe, Verified 05/18/19 16:05) Anaphylaxis Penicillins Allergy (Severe, Verified 05/18/19 16:05) Anaphylaxis adhesive tape [Adhesive Tape] Adverse Reaction (Severe, Verified 05/18/19 16:05) BLISTERS, SKIN BECOMES RAW indomethacin [From Indocin] Adverse Reaction (Severe, Verified 05/18/19 16:05) CAUSES SWELLING AND INFLAMMATION meperidine HCl [From Demerol] Adverse Reaction (Severe, Verified 05/18/19 16:05) Hallucinations Past Medical History - Past Medical History Cardiac Medical History: Reports: Hx Hypercholesterolemia, Hx Hypertension - on meds, Hx Peripheral Vascular Disease, Hx Heart Murmur Denies: Hx Heart Attack Pulmonary Medical History: Reports: Hx Asthma - severe,neb,inhaler, Hx Bronchitis - in past Denies: Hx COPD, Hx Pneumonia, Hx Respiratory Failure, Hx Sleep Apnea, Hx Tuberculosis Neurological Medical History: Denies: Hx Cerebrovascular Accident, Hx Seizures Endocrine Medical History: Reports: Hx Diabetes Mellitus Type 2, Hx Hypothyroidism Renal/ Medical History: Reports: Hx Ovarian Cysts. Denies: Hx Peritoneal Dialysis GI Medical History: Reports: Hx Gastroesophageal Reflux Disease, Hx Hiatal Hernia, Hx Irritable Bowel. Denies: Hx Pancreatitis Musculoskeltal Medical History: Reports Hx Arthritis - RA,fibromyalgia, Reports Hx Fibromyalgia, Denies Hx Systemic Lupus Erythematosus Psychiatric Medical History: Reports: Hx Depression Traumatic Medical History: Reports: Hx Fractures Past Surgical History: Reports: Hx Cholecystectomy, Hx Gastric Bypass Surgery - Lap Band, post in stomach for lap band , Hx Hysterectomy, Hx Orthopedic Surgery - right hip x3, left knee x1 - Immunizations Hx Diphtheria, Pertussis, Tetanus Vaccination: Yes History of Influenza Vaccine for 07/2017 - 12/2017 Season: Yes Influenza Administration Date for 07/2017 - 12/2017 Season: 07/30/18 Physical Exam - Vital signs Vitals: Temp Pulse Resp BP Pulse Ox 97.9 F 74 20 123/84 96 05/18/19 16:12 05/18/19 16:12 05/18/19 16:12 05/18/19 16:12 05/18/19 16:12 Course - Vital Signs Vital signs: Temp Pulse Resp BP Pulse Ox 97.9 F 74 20 123/84 96 05/18/19 16:12 05/18/19 16:12 05/18/19 16:12 05/18/19 16:12 05/18/19 16:12 Doctor's Discharge - Discharge Referrals: NAYLA GEE MD [Primary Care Provider] - Follow up as needed
[2019-05-18 17:12] LABS: ABSOLUTE BASOPHILS # (AUTO) 0.1 10^3/uL (0.0-0.2); ABSOLUTE EOSINOPHILS # (AUTO) 0.1 10^3/uL (0.0-0.6); ABSOLUTE LYMPHOCYTES (AUTO) 2.2 10^3/uL (0.5-4.7); ABSOLUTE MONOCYTES (AUTO) 0.6 10^3/uL (0.1-1.4); ABSOLUTE NEUT (AUTO) 4.8 10^3/uL (1.7-8.2); BASOPHILS % (AUTO) 0.8 % (0-2); EOSINOPHILS % (AUTO) 1.4 % (0-6); HEMATOCRIT 44.7 % (36.0-47.0); HEMOGLOBIN 14.9 g/dL (12.0-15.5); LYMPHOCYTES % (AUTO) 28.3 % (13-45); MEAN CORPUSCULAR HEMOGLOBIN 30.1 pg (27.0-33.4); MEAN CORPUSCULAR HGB CONC 33.4 g/dL (32.0-36.0); MEAN CORPUSCULAR VOLUME 90 fl (80-97); MONOCYTES % (AUTO) 7.9 % (3-13); PLATELET COUNT 196 10^3/uL (150-450); RED BLOOD COUNT 4.95 10^6/uL (3.72-5.28); RED CELL DISTRIBUTION WIDTH 15.4 % (11.5-14.0); SEGMENTED NEUTROPHILS % (AUTO) 61.6 % (42-78); TOTAL CELLS COUNTED % (AUTO) 100 %; WHITE BLOOD COUNT 7.8 10^3/uL (4.0-10.5)
[2019-05-18 17:32] LABS: ALBUMIN 3.9 g/dL (3.5-5.0); ALKALINE PHOSPHATASE 99 U/L (38-126); ANION GAP 8 (5-19); ASPARTATE AMINO TRANSFERASE 19 U/L (14-36); BILIRUBIN,DIRECT 0.2 mg/dL (0.0-0.4); BILIRUBIN,TOTAL 0.3 mg/dL (0.2-1.3); BLOOD UREA NITROGEN 23 mg/dL (7-20); CALCIUM 9.2 mg/dL (8.4-10.2); CARBON DIOXIDE 31 mmol/L (22-30); CHLORIDE 97 mmol/L (98-107); GLUCOSE 131 mg/dL (75-110); POTASSIUM 4.6 mmol/L (3.6-5.0); TOTAL PROTEIN 6.8 g/dL (6.3-8.2)
[2019-05-18] MEDS ORDERED: METOCLOPRAMIDE HCL ORAL SOLN 10 MG/10 ML UDCUP PO ONE (21:04)
[2019-05-18] MEDS ORDERED: MAG HYDROX/AL HYDROX/SIMETH SUSP 30 ML UDCUP PO ONE (21:04)
[2019-05-18] MEDS ORDERED: ONDANSETRON HCL INJ/PF 4 MG/2 ML SDV IV ONE (21:04)
[2019-05-18] MEDS ORDERED: LIDOCAINE 2% VISCOUS SOLN 20 ML UDCUP PO ONE (21:04)
--- NOTE | 2019-05-18 21:05 | ER Document Report ---
ED General - General Chief Complaint: Abdominal Pain Stated Complaint: ABDOMINAL PAIN Time Seen by Provider: 05/18/19 16:42 Mode of Arrival: Wheelchair Information source: Patient, [facility] Records, Outside Facility Records Notes: 69-year-old female with hypertension, hyperlipidemia, IBS, celiac's, fibromyalgia, type 2 diabetes presents with complaint of epigastric abdominal pain, nausea, vomiting, diarrhea. Patient reports that nausea and vomiting started 1 week prior to arrival. She states she has had multiple episodes of vomiting daily after eating. Patient also reports several episodes of diarrhea and denies any black or bloody stools. She states her last bowel movement was yesterday. She states today she began experiencing epigastric abdominal pain that she describes as a tightness. She states that she believes that her lap band has twisted. Patient surgical history includes history, cholecystectomy. Patient denies any fever, chills, lower abdominal pain, dysuria, hematuria. TRAVEL OUTSIDE OF THE [place] IN LAST 30 DAYS: No - HPI Onset: Last week Onset/Duration: Gradual, Persistent Quality of pain: Pressure Severity: Moderate Pain Level: 2 Associated symptoms: Diarrhea, Nausea, Vomiting, Other - Abdominal pain. denies: Fever Exacerbated by: Food Relieved by: Denies Similar symptoms previously: Yes Recently seen / treated by doctor: Yes - Related Data Allergies/Adverse Reactions: ciprofloxacin [From Cipro] Allergy (Severe, Verified 05/18/19 16:05) Anaphylaxis Penicillins Allergy (Severe, Verified 05/18/19 16:05) Anaphylaxis adhesive tape [Adhesive Tape] Adverse Reaction (Severe, Verified 05/18/19 16:05) BLISTERS, SKIN BECOMES RAW indomethacin [From Indocin] Adverse Reaction (Severe, Verified 05/18/19 16:05) CAUSES SWELLING AND INFLAMMATION meperidine HCl [From Demerol] Adverse Reaction (Severe, Verified 05/18/19 16:05) Hallucinations Past Medical History - General Information source: Patient - Social History Smoking Status: Never Smoker Frequency of alcohol use: None Drug Abuse: None Lives with: Intermediate Family History: Reviewed & Not Pertinent, Hypertension Patient has suicidal ideation: No Patient has homicidal ideation: No - Past Medical History Cardiac Medical History: Reports: Hx Hypercholesterolemia, Hx Hypertension - on meds, Hx Peripheral Vascular Disease, Hx Heart Murmur Denies: Hx Heart Attack Pulmonary Medical History: Reports: Hx Asthma - severe,neb,inhaler, Hx Bronchitis - in past Denies: Hx COPD, Hx Pneumonia, Hx Respiratory Failure, Hx Sleep Apnea, Hx Tuberculosis Neurological Medical History: Denies: Hx Cerebrovascular Accident, Hx Seizures Endocrine Medical History: Reports: Hx Diabetes Mellitus Type 2, Hx Hypo thyroidism Renal/ Medical History: Reports: Hx Ovarian Cysts. Denies: Hx Peritoneal Dialysis GI Medical History: Reports: Hx Gastroesophageal Reflux Disease, Hx Hiatal Hernia, Hx Irritable Bowel. Denies: Hx Pancreatitis Musculoskeletal Medical History: Reports Hx Arthritis - RA,fibromyalgia, Reports Hx Fibromyalgia, Denies Hx Systemic Lupus Erythematosus Psychiatric Medical History: Reports: Hx Depression Traumatic Medical History: Reports: Hx Fractures Past Surgical History: Reports: Hx Cholecystectomy, Hx Gastric Bypass Surgery - Lap Band, post in stomach for lap band , Hx Hysterectomy, Hx Orthopedic Surgery - right hip x3, left knee x1 - Immunizations Hx Diphtheria, Pertussis, Tetanus Vaccination: Yes Hx Pneumococcal Vaccination: 10/11/12 Review of Systems - Review of Systems Notes: REVIEW OF SYSTEMS: CONSTITUTIONAL : Denies fever, chills, or sweats. Denies recent illness. Denies weight loss, recent hospitalizations. EENT: Denies visual changes, eye pain. Denies sore throat, oral lesions, di fficulty swallowing. CARDIOVASCULAR: Denies palpitations. Denies lower extremity edema. RESPIRATORY: Denies cough. Denies shortness of breath, wheezing. GASTROINTESTINAL: Denies abdominal pain or distention. Denies blood in vomitus, stools, or per rectum. Denies black, tarry stools. Denies constipation. GENITOURINARY: Denies difficulty urinating, painful urination, frequency, blood in urine, or vaginal discharge. MUSCULOSKELETAL: Denies back or neck pain or stiffness. Denies joint pain or swelling. SKIN: Denies rash, lesions or sores. HEMATOLOGIC : Denies easy bruising or bleeding. LYMPHATIC: Denies swollen glands. NEUROLOGICAL: Denies confusion or altered mental status. Denies loss of consciousness. Denies dizziness or lightheadedness. Denies headache. Denies weakness or paralysis. Denies problems difficulty with ambulation, slurred speech. Denies sensory loss, numbness, or tingling. Denies seizures. PSYCHIATRIC: Denies anxiety or stress. Denies depression, suicidal ideation, or homicidal ideation. Denies visual or auditory hallucinations. Physical Exam - Vital signs Vitals: Temp Pulse Resp BP Pulse Ox 97.9 F 74 20 123/84 96 05/18/19 16:12 05/18/19 16:12 05/18/19 16:12 05/18/19 16:12 05/18/19 16:12 - Notes Notes: PHYSICAL EXAMINATION: GENERAL: Well-appearing, well-nourished and in no acute distress. Morbidly obese HEAD: Atraumatic, normocephalic. EYES: Pupils equal round and reactive to light, extraocular movements intact, conjunctiva are normal. ENT: Nares patent, oropharynx clear without exudates. Moist mucous membranes. NECK: Normal range of motion, supple without lymphadenopathy LUNGS: Breath sounds clear to auscultation bilaterally and equal. No wheezes rales or rhonchi. HEART: Regular rate and rhythm without murmurs ABDOMEN: Soft, nontender, nondistended abdomen. No guarding, no rebound. No masses appreciated. + Bowel sounds Female : Sales catheter in place Musculoskeletal: Normal range of motion, no pitting or edema. No cyanosis. NEUROLOGICAL: Cranial nerves grossly intact. Normal speech, normal gait. Normal sensory, motor exams PSYCH: Normal mood, normal affect. SKIN: Warm, Dry, normal turgor, no rashes or lesions noted. Course - Re-evaluation Re-evalutation: Laboratory 05/18/19 05/18/19 05/18/19 17:01 17:01 17:01 WBC 7.8 RBC 4.95 Hgb 14.9 Hct 44.7 MCV 90 MCH 30.1 MCHC 33.4 RDW 15.4 H Plt Count 196 Seg Neutrophils % 61.6 Lymphocytes % 28.3 Monocytes % 7.9 Eosinophils % 1.4 Basophils % 0.8 Absolute Neutrophils 4.8 Absolute Lymphocytes 2.2 Absolute Monocytes 0.6 Absolute Eosinophils 0.1 Absolute Basophils 0.1 PT INR APTT Sodium 135.8 L Potassium 4.6 Chloride 97 L Carbon Dioxide 31 H Anion Gap 8 BUN 23 H Creatinine 0.86 Est GFR ( Amer) > 60 Est GFR (Non-Af Amer) > 60 Glucose 131 H Calcium 9.2 Total Bilirubin 0.3 Direct Bilirubin 0.2 Neonat Total Bilirubin Not Reportable Neonat Direct Bilirubin Not Reportable Neonat Indirect Bili Not Reportable AST 19 ALT 12 Alkaline Phosphatase 99 Creatine Kinase Troponin I < 0.012 Total Protein 6.8 Albumin 3.9 Lipase 69.2 Urine Color Urine Appearance Urine pH Ur Specific [place] Urine Protein Urine Glucose (UA) Urine Ketones Urine Blood Urine Nitrite Urine Bilirubin Urine Urobilinogen Ur Leukocyte Esterase Urine RBC Urine WBC Ur Squamous Epith Cells Hyaline Casts Urine Ascorbic Acid 05/18/19 05/18/19 05/19/19 17:01 20:29 00:25 WBC RBC Hgb Hct MCV MCH MCHC RDW Plt Count Seg Neutrophils % Lymphocytes % Monocytes % Eosinophils % Basophils % Absolute Neutrophils Absolute Lymphocytes Absolute Monocytes Absolute Eosinophils Absolute Basophils PT INR APTT Sodium Potassium Chloride Carbon Dioxide Anion Gap BUN Creatinine Est GFR ( Amer) Est GFR (Non-Af Amer) Glucose Calcium Total Bilirubin Direct Bilirubin Neonat Total Bilirubin Neonat Direct Bilirubin Neonat Indirect Bili AST ALT Alkaline Phosphatase Creatine Kinase 66 Troponin I < 0.012 Total Protein Albumin Lipase Urine Color YELLOW Urine Appearance CLEAR Urine pH 5.0 Ur Specific [place] 1.013 Urine Protein 30 H Urine Glucose (UA) NEGATIVE Urine Ketones NEGATIVE Urine Blood NEGATIVE Urine Nitrite NEGATIVE Urine Bilirubin NEGATIVE Urine Urobilinogen NEGATIVE Ur Leukocyte Esterase SMALL H Urine RBC 0-1 Urine WBC 1-5 Ur Squamous Epith Cells FEW Hyaline Casts 0-1 Urine Ascorbic Acid NEGATIVE 05/19/19 00:25 WBC RBC Hgb Hct MCV MCH MCHC RDW Plt Count Seg Neutrophils % Lymphocytes % Monocytes % Eosinophils % Basophils % Absolute Neutrophils Absolute Lymphocytes Absolute Monocytes Absolute Eosinophils Absolute Basophils PT 13.6 INR 1.04 APTT 30.4 Sodium Potassium Chloride Carbon Dioxide Anion Gap BUN Creatinine Est GFR ( Amer) Est GFR (Non-Af Amer) Glucose Calcium Total Bilirubin Direct Bilirubin Neonat Total Bilirubin Neonat Direct Bilirubin Neonat Indirect Bili AST ALT Alkaline Phosphatase Creatine Kinase Troponin I Total Protein Albumin Lipase Urine Color Urine Appearance Urine pH Ur Specific [place] Urine Protein Urine Glucose (UA) Urine Ketones Urine Blood Urine Nitrite Urine Bilirubin Urine Urobilinogen Ur Leukocyte Esterase Urine RBC Urine WBC Ur Squamous Epith Cells Hyaline Casts Urine Ascorbic Acid Abdomen/Pelvis CT 05/18/19 21:00 IMPRESSION: 1. Significant obesity both intraperitoneal and subcutaneous fat. 2. Previous gastric banding without associated complications. 3. Suspected mild small bowel obstruction. Suspected transition zone in the lower abdomen jejunum region. 4. Suprapubic catheter is seen. Probably chronic indwelling. Associated surrounding soft tissue thickening. Temp Pulse Resp BP Pulse Ox 97.9 F 79 15 147/62 H 96 05/18/19 16:12 05/18/19 19:31 05/19/19 01:01 05/19/19 01:01 05/19/19 01:01 69-year-old female with hypertension, hyperlipidemia, IBS, celiac's, fibromyalgia, type 2 diabetes presents with complaint of epigastric abdominal pain, nausea, vomiting, diarrhea. Patient reports that nausea and vomiting started 1 week prior to arrival. She states she has had multiple episodes of vomiting daily after eating. Patient also reports several episodes of diarrhea and denies any black or bloody stools. She states her last bowel movement was yesterday. She states today she began experiencing epigastric abdominal pain that she describes as a tightness. She states that she believes that her lap band has twisted. Vital signs reviewed and patient is afebrile, mildly hypertensive. She appears to be in significant discomfort but does not appear toxic. Patient did receive IV fluids, morphine, Zofran and does report some improvement in her pain. 05/19/19 00:19 Dr. Huston contacted for small bowel obstruction found on CT with IV contrast. This was obtained because the patient was not initially able to tolerate the oral contrast. After vomiting was controlled CT of the abdomen with oral contrast was ordered as Dr. Huston requested. Patient has been accepted for admission by Dr. Toscano. Consult for Dr. Huston was placed. 05/19/19 01:30 05/19/19 01:31 - Vital Signs Vital signs: Temp Pulse Resp BP Pulse Ox 97.9 F 79 15 147/62 H 96 05/18/19 16:12 05/18/19 19:31 05/19/19 01:01 05/19/19 01:01 05/19/19 01:01 - Laboratory Result Diagrams: 05/18/19 17:01 05/18/19 17:01 Laboratory results interpreted by me: 05/18/19 05/18/19 05/18/19 17:01 17:01 20:29 RDW 15.4 H Sodium 135.8 L Chloride 97 L Carbon Dioxide 31 H BUN 23 H Glucose 131 H Urine Protein 30 H Ur Leukocyte Esterase SMALL H - Diagnostic Test Radiology reviewed: Image reviewed, Reports reviewed - EKG Interpretation by Me EKG shows normal: Sinus rhythm Rate: Normal [place]/QRS: Left axis deviation Heart block present: 1st Degree Discharge - Discharge Clinical Impression: Small bowel obstruction Nausea & vomiting Qualifiers: Vomiting type: unspecified Vomiting Intractability: non-intractable Qualified Code(s): R11.2 - Nausea with vomiting, unspecified Abdominal pain Qualifiers: Abdominal location: unspecified location Qualified Code(s): R10.9 - Unspecified abdominal pain Condition: Fair Disposition: ADMITTED INPATIENT Admitting Provider: Toscano Unit Admitted: Telemetry
[2019-05-18] MEDS ORDERED: FUROSEMIDE INJ/PF 20 MG/2 ML SDV IV ONE (21:06)
[2019-05-18 21:21] LABS: CREATINE KINASE 66 U/L (30-135)
[2019-05-18 21:33] LABS: APPEARANCE,URINE CLEAR; BILIRUBIN,URINE NEGATIVE (NEGATIVE); COLOR,URINE YELLOW; GLUCOSE, URINE NEGATIVE (NEGATIVE); KETONES,URINE NEGATIVE (NEGATIVE); LEUKOCYTE ESTERASE,URINE SMALL (NEGATIVE); NITRITE,URINE NEGATIVE (NEGATIVE); PROTEIN,URINE 30 mg/dL (NEGATIVE); URINE SPECIFIC GRAVITY 1.013; UROBILINOGEN,URINE NEGATIVE mg/dL (<2.0)
[2019-05-18 21:51] LABS: ADD MANUAL MICROSCOPIC YES; HYALINE CASTS, URINE 0-1 /LPF; RBC,URINE 0-1 /HPF
--- NOTE | 2019-05-18 22:37 | RADIOLOGY REPORT (SQ) ---
EXAM DESCRIPTION: CLINICAL HISTORY: 69 years Female Epigastric abdominal pain history of LAP-BAND COMPARISON: None TECHNIQUE: Axial images with IV contrast. 100 mL of Isovue-370. Sagittal and coronal reconstruction. This exam was performed according to our departmental dose-optimization program, which includes automated exposure control, adjustment of the mA and/or kV according to patient size and/or use of iterative reconstruction technique.. FINDINGS: Lung bases are unremarkable. Bilateral pleural thickening from fat. Status post gastric banding. Normal angle and position of the band. No significant dilatation of the distal esophagus noted.. The liver, spleen, pancreas, adrenal glands, kidneys aorta and para-aortic regions are unremarkable. Cholecystectomy. There is fibular dilatation. Mild dilatation of small bowel loops. Suspected transition zone in the mid abdomen. Series 601 image 38.. Colon is unremarkable. Increased mesenteric fat. Mesh in the anterior abdomen. CT of the pelvis demonstrates unremarkable distal colon. Right hip prosthesis.. There is an anterior supraclavicular urinary catheter. Appears to be in good position. The catheter is probably chronic and there is thickening around it in its tract in the subcutaneous layer. No free fluid or adenopathy. IMPRESSION: 1. Significant obesity both intraperitoneal and subcutaneous fat. 2. Previous gastric banding without associated complications. 3. Suspected mild small bowel obstruction. Suspected transition zone in the lower abdomen jejunum region. 4. Suprapubic catheter is seen. Probably chronic indwelling. Associated surrounding soft tissue thickening.
[2019-05-19] MEDS ORDERED: ONDANSETRON HCL INJ/PF 4 MG/2 ML SDV IV ONE (00:01)
[2019-05-19] MEDS ORDERED: MORPHINE SULFATE 10 MG/ML INJ IV ONE (00:03)
[2019-05-19] MEDS ORDERED: IPRATROPIUM/ALBUTEROL 0.5-2.5 MG/3 ML AMPUL NEB PRN ×2 (00:13→08:40)
[2019-05-19] MEDS ORDERED: NORMAL SALINE 1000 ML 1,000 ML IV PRN ×2 (00:13→08:07)
[2019-05-19] MEDS ORDERED: GLUCAGON,HUMAN RECOMB 1 MG INJ IM PRN ×3 (00:31→17:00)
[2019-05-19] MEDS ORDERED: DEXTROSE 50%-WATER 25 GM/50 ML DISP.SYRIN IV PRN ×4 (00:31)
[2019-05-19] MEDS ORDERED: DEXTROSE 40% GEL 15 GM TUBE PO PRN ×5 (00:31→17:00)
[2019-05-19] MEDS ORDERED: METRONIDAZOLE 500 MG/NS RTU 500 MG/100 ML RTUPB IV ONE (00:45)
[2019-05-19 00:56] LABS: INTERNATIONAL RATION (INR) 1.04; PROTHROMBIN TIME 13.6 SEC (11.4-15.4)
[2019-05-19 00:57] LABS: PARTIAL THROMBOPLASTIN TIME 30.4 SEC (23.5-35.8)
--- NOTE | 2019-05-19 02:49 | RADIOLOGY REPORT (SQ) ---
EXAM DESCRIPTION: CT ABDOMEN PELVIS WITHOUT IV CONTRAST COMPLETED DATE/TME: 05/18/2019 23:57 CLINICAL HISTORY: 69 years, Female, SBO COMPARISON: [id number] CT at 9:52 PM TECHNIQUE: [id number] Images stored on PACS. All CT scanners at this facility use dose modulation, iterative reconstruction, and/or weight based dosing when appropriate to reduce radiation dose to as low as reasonably achievable (ALARA). [facility]: Dose Right [facility]: CareDose [facility]: Dose Right [facility]: Teradose 4D [facility]: [place] LIMITATIONS: None. FINDINGS: Lung bases are unremarkable. Osseous structures are grossly intact. Fatty infiltrative change to the liver. Evidence of gastric band procedure. The spleen, adrenal glands, pancreas, kidneys are unremarkable. Surgical absence of the gallbladder. Limited evaluation of the anterior abdomen secondary to patient body habitus. The patient was unable to drink the required amount of contrast, however there is no significant small bowel dilatation as was questioned on the prior exam. No definitive transition point. No free air or free fluid. Sales catheter in urinary bladder. Status post appendectomy. IMPRESSION: No evidence for obstruction on this exam. Nondilated fluid-filled/contrast filled loops of small bowel are noted. No free air or free fluid. TECHNICAL DOCUMENTATION: Quality ID # [id number]: Final reports with documentation of one or more dose reduction techniques (e.g., Automated exposure control, adjustment of the mA and/or kV according to patient size, use of iterative reconstruction technique) copyright 2010 [employer]- All Rights Reserved
[2019-05-19] MEDS: HEPARIN SOD (PORCINE) 5,000 UNIT/ML 1 ML VIAL SUBCUT SCH ×3 (05:51→21:08)
[2019-05-19] MEDS ORDERED: METRONIDAZOLE 500 MG/NS RTU 500 MG/100 ML RTUPB IV SCH (06:00)
--- NOTE | 2019-05-19 06:51 | PDOC CONSULTATION ---
Consultation Consult Date: 05/19/19 Attending physician:: NAYLA GEE Provider Consulted: MIGUEL PATEL Consult reason:: Rule out small bowel obstruction History of Present Illness Admission Date/PCP: 05/19/19 00:48 NAYLA GEE MD Patient complains of: Abdominal pain nausea vomiting diarrhea History of Present Illness: NETTA RICO is a 69 year old female Who presents to the emergency department via ground rescue complaining of a week history of abdominal pain nausea vomiting and diarrhea. Patient is a inconsistent historian. She has a history of morbid obesity and multiple musculoskeletal diagnoses. She is 7 years status post laparoscopic inflatable band by Dr. Burns in [place]. The band was released shortly thereafter because of food and pills getting stuck. Since then she has not lost any weight that she is aware of. She occasionally has sensations of twisting and spasms in her abdomen. This morning she states her problem is more in her pelvic area. She was seen in the emergency department where she had unremarkable laboratory findings, and a CT scan of the abdomen without oral contrast this suggested a small bowel obstruction with a transition point. Surgery was consulted and the emergency department was instructed to repeat the CAT scan with oral contrast. Meanwhile the patient was admitted to the service of Dr. Gee. The follow- up CT scan with oral contrast demonstrated no pathologic findings, no evidence of small bowel obstruction. The patient is now on the floor under oxygen laying still with no significant complaints. She does states she has had some diarrhea. She reports she has a colonoscopy every [address] Bryant. Past Medical History Cardiac Medical History: Reports: Hyperlipidema, Hypertension - on meds, Peripheral Vascular Disease, Heart Murmur Denies: Myocardial Infarction Pulmonary Medical History: Reports: Asthma - severe,neb,inhaler, Bronchitis - in past Denies: Chronic Obstructive Pulmonary Disease (COPD), Pneumonia, Respiratory Failure, Sleep Apnea, Tuberculosis Neurological Medical History: Denies: Seizures Endocrine Medical History: Reports: Diabetes Mellitus Type 2, Hypothyroidism GI Medical History: Reports: Gastroesophageal Reflux Disease, Hiatal Hernia Musculoskeltal Medical History: Reports: Arthritis - RA,fibromyalgia, Fibromyalgia Psychiatric Medical History: Reports: Depression Hematology: Denies: Anemia, Hemophilia, Sickle Cell Disease Past Surgical History Past Surgical History: Gastric lap banding procedure [address] Burns Past Surgical History: Reports: Cholecystectomy, Gastric Bypass Surgery - Lap Band, post in stomach for lap band , Hysterectomy, Orthopedic Surgery - right hip x3, left knee x1 Denies: Amputation Social History Lives with: [facility] Smoking Status: Never Smoker Frequency of Alcohol Use: None Hx Recreational Drug Use: No Drugs: None Hx Prescription Drug Abuse: No Family History Family History: Reviewed & Not Pertinent, Hypertension Parental Family History Reviewed: Yes Children Family History Reviewed: Yes Sibling(s) Family History Reviewed.: Yes Medication/Allergy Home Medications: Allopurinol [Zyloprim 300 mg Tablet] 300 mg PO Q6AM 05/19/18 Amlodipine Besylate [Norvasc 5 mg Tablet] 5 mg PO Q6AM 05/19/18 Glimepiride [Amaryl] 2 mg PO Q6AM 05/19/18 Hydroxychloroquine Sulfate [Plaquenil 200 mg Tablet] 200 mg PO BID 05/19/18 Ipratropium [place] [Atrovent 0.02% Neb 0.5 mg/2.5 ml Ampul] 0.5 mg NEB [id number] PRN 05/19/18 Levothyroxine Sodium [Synthroid 0.088 mg Tablet] 0.088 mg PO Q6AM 05/19/18 Metoprolol Succinate [Toprol Xl 25 mg Tab.sr] 25 mg PO QPM 05/19/18 Montelukast Sodium [Singulair 10 mg Tablet] 10 mg PO QPM 05/19/18 Acetic Acid 0.25% 20 ml .ROUTE DAILY 05/20/18 Calcium 600mg 600 mg PO DAILY 05/20/18 Carboxymethylcellulose Sodium [Refresh Tears] 1 drop OU ASDIR PRN 05/20/18 Cholecalciferol (Vitamin D3) [Vitamin D3 1000 unit Chewable Tablet] 4,000 unit PO DAILY 05/20/18 Cyclosporine 0.05% Oph Emulsio [Restasis 0.05% Oph Emulsion Pf 0.4 ml] 1 drop OU Q12 05/20/18 Insulin Glargine,Hum.rec.anlog [Lantus Solostar] 5 units SQ QPM 05/20/18 Potassium Chloride [Klor-Con 10] 10 meq PO BID 05/20/18 Sodium Chloride [Saline Nasal [place]] 1 spray NASL ASDIR PRN 05/20/18 Baclofen [Baclofen 10 mg Tablet] 5 mg PO Q8 #90 tablet 05/22/18 Cephalexin Monohydrate [Keflex 500 mg Capsule] 500 mg PO Q8 #21 capsule 05/22/18 Furosemide [Lasix 40 mg Tablet] 40 mg PO DAILY #30 tablet 05/22/18 Oxycodone HCl [Oxy-Ir 5 mg Tablet] 10 mg PO Q4HP PRN #30 tablet 05/22/18 Pregabalin [Lyrica 50 mg Capsule] 50 mg PO Q8 05/23/18 Insulin Lispro [Humalog Insulin (Lispro) 100 unit/mL] 0 - 12 unit SUBCUT [id number] PRN #1 unit 05/27/18 Prednisone 40 mg PO DAILY #5 tablet 05/27/18 Fluconazole [Diflucan] 150 mg PO ONCE #1 tablet 02/17/19 Allergies/Adverse Reactions: ciprofloxacin [From Cipro] Allergy (Severe, Verified 05/18/19 16:05) Anaphylaxis Penicillins Allergy (Severe, Verified 05/18/19 16:05) Anaphylaxis adhesive tape [Adhesive Tape] Adverse Reaction (Severe, Verified 05/18/19 16:05) BLISTERS, SKIN BECOMES RAW indomethacin [From Indocin] Adverse Reaction (Severe, Verified 05/18/19 16:05) CAUSES SWELLING AND INFLAMMATION meperidine HCl [From Demerol] Adverse Reaction (Severe, Verified 05/18/19 16:05) Hallucinations Review of Systems Constitutional: ABSENT: chills, fever(s), headache(s), weight gain, weight loss Eyes: ABSENT: visual disturbances Ears: ABSENT: hearing changes Cardiovascular: PRESENT: orthropnea Respiratory: PRESENT: dyspnea Gastrointestinal: PRESENT: as per HPI Neurological: PRESENT: as per HPI Physical Exam Vital Signs: Temp Pulse Resp BP Pulse Ox 97.9 F 63 15 147/62 H 96 05/18/19 16:12 05/19/19 03:50 05/19/19 01:01 05/19/19 01:01 05/19/19 01:01 Intake & Output 05/17/19 05/18/19 05/19/19 06:59 06:59 06:59 Weight 153.64 kg General appearance: PRESENT: no acute distress, other - Morbidly obese Head exam: PRESENT: normocephalic Eye exam: PRESENT: EOMI Mouth exam: PRESENT: dry mucosa GI/Abdominal exam: PRESENT: other - Morbidly obese; difficult to assess but no acute peritoneal signs. Multiple scars consistent with previous surgery Rectal exam: PRESENT: deferred Extremities exam: PRESENT: joint swelling, pedal edema Neurological exam: PRESENT: awake, oriented to person, oriented to place, oriented to time, oriented to situation Psychiatric exam: PRESENT: appropriate affect Results Laboratory Results: 05/18/19 17:01 05/18/19 17:01 05/18/19 05/18/19 05/18/19 17: 17:01 20:29 WBC 7.8 RBC 4.95 Hgb 14.9 Hct 44.7 MCV 90 MCH 30.1 MCHC 33.4 RDW 15.4 H Plt Count 196 Seg Neutrophils % 61.6 Lymphocytes % 28.3 Monocytes % 7.9 Eosinophils % 1.4 Basophils % 0.8 Absolute Neutrophils 4.8 Absolute Lymphocytes 2.2 Absolute Monocytes 0.6 Absolute Eosinophils 0.1 Absolute Basophils 0.1 Sodium 135.8 L Potassium 4.6 Chloride 97 L Carbon Dioxide 31 H Anion Gap 8 BUN 23 H Creatinine 0.86 Est GFR ( Amer) > 60 Est GFR (Non-Af Amer) > 60 Glucose 131 H Calcium 9.2 Total Bilirubin 0.3 AST 19 Alkaline Phosphatase 99 Total Protein 6.8 Albumin 3.9 Lipase 69.2 Urine Color YELLOW Urine Appearance CLEAR Urine pH 5.0 Ur Specific [place] 1.013 Urine Protein 30 H Urine Glucose (UA) NEGATIVE Urine Ketones NEGATIVE Urine Blood NEGATIVE Urine Nitrite NEGATIVE Ur Leukocyte Esterase SMALL H Ur Squamous Epith Cells FEW Blood Type Antibody Screen 05/19/19 00:25 WBC RBC Hgb Hct MCV MCH MCHC RDW Plt Count Seg Neutrophils % Lymphocytes % Monocytes % Eosinophils % Basophils % Absolute Neutrophils Absolute Lymphocytes Absolute Monocytes Absolute Eosinophils Absolute Basophils Sodium Potassium Chloride Carbon Dioxide Anion Gap BUN Creatinine Est GFR ( Amer) Est GFR (Non-Af Amer) Glucose Calcium Total Bilirubin AST Alkaline Phosphatase Total Protein Albumin Lipase Urine Color Urine Appearance Urine pH Ur Specific [place] Urine Protein Urine Glucose (UA) Urine Ketones Urine Blood Urine Nitrite Ur Leukocyte Esterase Ur Squamous Epith Cells Blood Type A POSITIVE Antibody Screen NEGATIVE 05/18/19 05/18/19 05/19/19 17: 17: 00:25 Creatine Kinase 66 Troponin I < 0.012 < 0.012 Impressions: Abdomen/Pelvis CT 05/18/19 23:57 IMPRESSION: No evidence for obstruction on this exam. Nondilated fluid-filled/contrast filled loops of small bowel are noted. No free air or free fluid. TECHNICAL DOCUMENTATION: Quality ID # [id number]: Final reports with documentation of one or more dose reduction techniques (e.g., Automated exposure control, adjustment of the mA and/or kV according to patient size, use of iterative reconstruction technique) copyright 2011 [employer]- All Rights Reserved Assessment & Plan - Diagnosis (1) Abdominal pain Qualifiers: Abdominal location: unspecified location Qualified Code(s): R10.9 - Unspecified abdominal pain Is this a current diagnosis for this admission?: Yes Plan: Impression: Acute abdominal pain of unclear etiology; no evidence of sepsis, bowel obstruction, intestinal ischemia based on clinical exam, and CT scanning with and without oral contrast. Evidence of retained stool in the colon. Recommendations: 1. No indication for surgical intervention; no indication for further radiologic evaluation 2. Enemas to clear colonic stool 3. Will reexamine patient, ensure clinical improvement (2) Morbid obesity with BMI of 50.0-59.9, adult Is this a current diagnosis for this admission?: Yes (3) Chronic pain syndrome Is this a current diagnosis for this admission?: Yes (4) Depressed Qualifiers: Depression Type: major depressive disorder Is this a current diagnosis for this admission?: Yes (5) Hyperlipidemia Qualifiers: Hyperlipidemia type: unspecified Qualified Code(s): E78.5 - Hyperlipidemia, unspecified Is this a current diagnosis for this admission?: Yes (6) Hypertension Qualifiers: Hypertension type: essential hypertension Qualified Code(s): I10 - Essential (primary) hypertension Is this a current diagnosis for this admission?: Yes (7) Type 2 diabetes mellitus Qualifiers: Diabetes mellitus termination clerk insulin use: unspecified termination clerk insulin use status Diabetes mellitus complication status: with kidney complications Diabetes mellitus complication detail: with nephropathy Qualified Code(s): E11.21 - Type 2 diabetes mellitus with diabetic nephropathy Is this a current diagnosis for this admission?: Yes - Time Time Spent: 30 to 50 Minutes Smoking Cessation Education: 3 to 10 minutes Anticipated discharge: Home - Inpatient Certification Based on my medical assessment, after consideration of the patient's comorbidities, presenting symptoms, or acuity I expect that the services needed warrant INPATIENT care.: Yes I certify that my determination is in accordance with my understanding of Medicare's requirements for reasonable and necessary INPATIENT services [42 CFR 412.3e].: Yes Medical Necessity: Need For IV Fluids
[2019-05-19] MEDS: INSULIN LISPRO 100 UNIT/ML 3 ML VIAL SUBCUT SCH ×4 (08:01→21:09)
--- NOTE | 2019-05-19 08:17 | EKG REPORT ---
SEVERITY:- ABNORMAL ECG - SINUS RHYTHM FIRST DEGREE AV BLOCK LEFT AXIS DEVIATION : Confirmed by: Aly James MD 19-May-2019 08:16:41
--- NOTE | 2019-05-19 08:32 | PDOC PROGRESS REPORT ---
Subjective Progress Note for:: 05/19/19 Subjective:: admtted for question of sbo vs constipation hx of lap band Reason For Visit: SBO Physical Exam Vital Signs: Temp Pulse Resp BP Pulse Ox 97.8 F 68 18 139/52 H 99 05/19/19 03:50 05/19/19 07:00 05/19/19 03:50 05/19/19 03:50 05/19/19 03:50 Intake & Output 05/18/19 05/19/19 05/20/19 06:59 06:59 06:59 Intake Total 100 Output Total 200 Balance -200 100 Weight 153.64 kg General appearance: PRESENT: no acute distress, morbidly obese Head exam: PRESENT: normocephalic Eye exam: PRESENT: EOMI Mouth exam: PRESENT: moist Teeth exam: PRESENT: poor dentation Neck exam: PRESENT: full ROM Respiratory exam: PRESENT: clear to auscultation [place] Cardiovascular exam: PRESENT: RRR Pulses: PRESENT: normal radial pulses, normal femoral pulses GI/Abdominal exam: PRESENT: soft Rectal exam: PRESENT: deferred Extremities exam: PRESENT: full ROM Musculoskeletal exam: PRESENT: full ROM Neurological exam: PRESENT: alert, awake, oriented to person, oriented to place Psychiatric exam: PRESENT: appropriate affect Skin exam: PRESENT: dry Results Laboratory Results: 05/18/19 17:01 05/18/19 17:01 05/18/19 05/18/19 05/18/19 17:01 17:01 20:29 WBC 7.8 RBC 4.95 Hgb 14.9 Hct 44.7 MCV 90 MCH 30.1 MCHC 33.4 RDW 15.4 H Plt Count 196 Seg Neutrophils % 61.6 Lymphocytes % 28.3 Monocytes % 7.9 Eosinophils % 1.4 Basophils % 0.8 Absolute Neutrophils 4.8 Absolute Lymphocytes 2.2 Absolute Monocytes 0.6 Absolute Eosinophils 0.1 Absolute Basophils 0.1 Sodium 135.8 L Potassium 4.6 Chloride 97 L Carbon Dioxide 31 H Anion Gap 8 BUN 23 H Creatinine 0.86 Est GFR ( Amer) > 60 Est GFR (Non-Af Amer) > 60 Glucose 131 H Calcium 9.2 Total Bilirubin 0.3 AST 19 Alkaline Phosphatase 99 Total Protein 6.8 Albumin 3.9 Lipase 69.2 Urine Color YELLOW Urine Appearance CLEAR Urine pH 5.0 Ur Specific [place] 1.013 Urine Protein 30 H Urine Glucose (UA) NEGATIVE Urine Ketones NEGATIVE Urine Blood NEGATIVE Urine Nitrite NEGATIVE Ur Leukocyte Esterase SMALL H Ur Squamous Epith Cells FEW Blood Type Antibody Screen 05/19/19 00:25 WBC RBC Hgb Hct MCV MCH MCHC RDW Plt Count Seg Neutrophils % Lymphocytes % Monocytes % Eosinophils % Basophils % Absolute Neutrophils Absolute Lymphocytes Absolute Monocytes Absolute Eosinophils Absolute Basophils Sodium Potassium Chloride Carbon Dioxide Anion Gap BUN Creatinine Est GFR ( Amer) Est GFR (Non-Af Amer) Glucose Calcium Total Bilirubin AST Alkaline Phosphatase Total Protein Albumin Lipase Urine Color Urine Appearance Urine pH Ur Specific [place] Urine Protein Urine Glucose (UA) Urine Ketones Urine Blood Urine Nitrite Ur Leukocyte Esterase Ur Squamous Epith Cells Blood Type A POSITIVE Antibody Screen NEGATIVE 05/18/19 05/18/19 05/19/19 17:01 17:01 00:25 Creatine Kinase 66 Troponin I < 0.012 < 0.012 05/19/19 07:10 Creatine Kinase Troponin I < 0.012 Impressions: Abdomen/Pelvis CT 05/18/19 23:57 IMPRESSION: No evidence for obstruction on this exam. Nondilated fluid-filled/contrast filled loops of small bowel are noted. No free air or free fluid. TECHNICAL DOCUMENTATION: Quality ID # [id number]: Final reports with documentation of one or more dose reduction techniques (e.g., Automated exposure control, adjustment of the mA and/or kV according to patient size, use of iterative reconstruction technique) copyright 2011 [email or web address]- All Rights Reserved Assessment & Plan - Plan Summary Plan Summary: pt admtted with question of sbo also with hx of lap band, currently empty has not done well with wt loss from lap band (as expected) review of ct does not document sbo, rather with large amts of stool plan will start mag citrate, clear liqujids
[2019-05-19] MEDS ORDERED: POLYVINYL ALCOHOL 1.4% OPH SOLN 15 ML OU PRN (08:40)
[2019-05-19] MEDS ORDERED: (PENDING PHARMACY ID) (Ketotifen Fumarate [Refresh] 1 DROP) OU PRN (08:40)
[2019-05-19] MEDS ORDERED: BENZOCAINE PO PRN (08:40)
[2019-05-19] MEDS ORDERED: SODIUM CHLORIDE NASAL SPRAY 44 ML NASL PRN (08:40)
[2019-05-19] MEDS ORDERED: DIPHENHYDRAMINE HCL 25 MG CAPSULE PO PRN (08:40)
[2019-05-19] MEDS ORDERED: BISACODYL 5 MG TABEC PO PRN (08:40)
[2019-05-19] MEDS ORDERED: MENTHOL PO PRN (08:40)
[2019-05-19] MEDS ORDERED: BENZOCAINE/MENTHOL SORE THROAT LOZENGE BUCCAL PRN (09:00)
[2019-05-19] MEDS ORDERED: MAGNESIUM CITRATE 296 ML BOTTLE PO ONE (09:30)
[2019-05-19] MEDS ORDERED: PSYLLIUM HUSK 3.4 GM PO SCH (10:00)
[2019-05-19] MEDS ORDERED: CRANBERRY FRUIT EXTRACT 250 MG PO SCH (10:00)
[2019-05-19] MEDS ORDERED: (PENDING PHARMACY ID) (Calcium Carbonate [Calcium] 600 MG) PO SCH (10:00)
[2019-05-19] MEDS ORDERED: (PENDING PHARMACY ID) (Betamet Diprop/Prop Gly [Betamethasone Dp Aug 0.05% Cream] 1 APPLIC TOP SCH (10:00)
[2019-05-19] MEDS ORDERED: (PENDING PHARMACY ID) (Naloxegol Oxalate 25 MG) PO SCH (10:00)
[2019-05-19] MEDS ORDERED: ADAPALENE TOP SCH (10:00)
[2019-05-19] MEDS ORDERED: [UNRECOGNIZED DRUG - OTHER] PO SCH (10:00)
[2019-05-19] MEDS: SENNOSIDES/DOCUSATE 8.6-50 MG 1 EACH TABLET PO SCH ×2 (10:06→17:08)
[2019-05-19] MEDS: POTASSIUM CHLORIDE 10 MEQ CAPSULE.ER PO SCH ×2 (10:06→21:09)
[2019-05-19] MEDS: AMLODIPINE BESYLATE 5 MG TABLET PO SCH (10:06)
[2019-05-19] MEDS: PANTOPRAZOLE SODIUM 40 MG VIAL IV SCH ×2 (10:06→21:11)
[2019-05-19] MEDS: FUROSEMIDE 40 MG TABLET PO SCH ×2 (10:06→17:08)
[2019-05-19] MEDS: LEVOTHYROXINE SODIUM 0.088 MG TABLET PO SCH (10:08)
[2019-05-19] MEDS: BACLOFEN 10 MG TABLET PO SCH ×3 (10:08→17:08)
[2019-05-19] MEDS: FLUTICASONE/VILANTEROL 200-25 MCG/DOSE IH SCH (10:09)
[2019-05-19] MEDS: MICONAZOLE NITRATE 2% CREAM 15GM TOP SCH ×2 (10:10→17:07)
[2019-05-19] MEDS: HYDROXYCHLOROQUINE SULFATE 200 MG TABLET PO SCH ×2 (10:13→21:09)
[2019-05-19] MEDS: CYCLOSPORINE 0.05% OPH EMULSIO 0.4 ML DROPERETTE OU SCH ×2 (10:14→21:11)
[2019-05-19] MEDS: ALLOPURINOL 300 MG TABLET PO SCH (10:14)
[2019-05-19] MEDS: MINERAL OIL/PETROLATUM,WHITE CREAM 114 GM TOP SCH ×2 (10:15→17:08)
[2019-05-19] MEDS: CALCIUM CARBONATE 500 MG TABLET PO SCH (10:16)
--- NOTE | 2019-05-19 11:40 | PDOC H&P ---
History of Present Illness Admission Date/PCP: 05/19/19 00:48 NAYLA GEE MD Patient complains of: Nausea vomiting History of Present Illness: NETTA RICO is a 69 year old female This is a 69-year-old female with a patient of Dr. Gee at the nursing facility came to the emergency department with a complaint of persistent nausea and vomiting since last 1 week Patient had a history of the LAP-BAND procedure 7 years back with a history of the type 2 diabetes mellitus hypertension's hyperlipidemia chronic bedbound conditions with a severe arthritisAnd multiple other comorbidity and initial work-up with a CT abdomen pelvis with IV contrast suggested questionable small bowel obstructions and surgery is to be evaluated and ER physicians called me to admit the patient's because of the patient need a CT abdomen and pelvis with p.o. contrast Patient was CT abdomen and pelvis with p.o. contrast did not show any small bowel obstructions or any acute abdominal pathology Discussed with the surgery and suggest the patient's probably needs to remove the LAP-BAND because it is more than 7 years and does not work in patients some of the symptoms coming from that but not required to do it now and he will schedule his outpatients Patient also have a constipation's due to the chronic pain medications chronic debilitating conditions adjust the medications by the surgery suggest to start with the liquid full diet Patients require oxygen at nighttime when I saw it denied any chest pain to than any shortness of the breath no abdominal pain no nausea no vomiting Have a chronic suprapubic catheters Past Medical History Cardiac Medical History: Reports: Hyperlipidema, Hypertension - on meds, Peripheral Vascular Disease, Heart Murmur Denies: Myocardial Infarction Pulmonary Medical History: Reports: Asthma - severe,neb,inhaler, Bronchitis - in past Denies: Chronic Obstructive Pulmonary Disease (COPD), Pneumonia, Respiratory Failure, Sleep Apnea, Tuberculosis Neurological Medical History: Denies: Seizures Endocrine Medical History: Reports: Diabetes Mellitus Type 2, Hypothyroidism Renal/ Medical History: Reports: Chronic Kidney Disease GI Medical History: Reports: Gastroesophageal Reflux Disease, Hiatal Hernia Musculoskeltal Medical History: Reports: Arthritis - RA,fibromyalgia, Fibromyalgia Psychiatric Medical History: Reports: Depression Hematology: Denies: Anemia, Hemophilia, Sickle Cell Disease Past Surgical History Past Surgical History: Reports: Cholecystectomy, Hysterectomy, Orthopedic Surgery - right hip x3, left knee x1, Other - LAP-BAND procedures Denies: Amputation Social History Information Source: Patient Lives with: Residential Smoking Status: Never Smoker Frequency of Alcohol Use: None Hx Recreational Drug Use: No Drugs: None Hx Prescription Drug Abuse: No Family History Family History: Reviewed & Not Pertinent, Hypertension Parental Family History Reviewed: Yes Children Family History Reviewed: Yes Sibling(s) Family History Reviewed.: Yes Medication/Allergy Home Medications: Adapalene [Differin Cream] 1 applic TOP BID 05/19/19 Allopurinol [Zyloprim 300 mg Tablet] 300 mg PO DAILY 05/19/19 Amlodipine Besylate [Norvasc 5 mg Tablet] 5 mg PO DAILY 05/19/19 Baclofen [Baclofen 10 mg Tablet] 10 mg PO TID 05/19/19 Benzocaine/Menthol [Chloraseptic Max Lozenge] 1 sean PO Q1HP PRN 05/19/19 Betamet Diprop/Prop Gly [Betamethasone Dp Aug 0.05% Cream] 1 applic TOP BID 06/29 Bisacodyl [Dulcolax 5 mg Tablet] 5 mg PO DAILYP PRN 05/19/19 Budesonide/Formoterol Fumarate [Symbicort HFA 160-4.5 mcg Inhaler 6 gm] 2 puff IH Q12 05/19/19 Calcium Carbonate [Calcium] 600 mg PO DAILY 05/19/19 Cholecalciferol (Vitamin D3) [Vitamin D3 1000 Unit Tablet] 4,000 unit PO DAILY 05/19/19 Cranberry Fruit Extract [Cranberry 250 mg Capsule] 250 mg PO DAILY 05/19/19 Cyclosporine 0.05% Oph Emulsio [Restasis 0.05% Oph Emulsion Pf 0.4 ml] 1 drop OU Q12 05/19/19 Diphenhydramine HCl [Benadryl] 25 mg PO Q8HP PRN 05/19/19 Furosemide [Lasix 40 mg Tablet] 40 mg PO BID 05/19/19 Glimepiride [Amaryl] 2 mg PO DAILY 05/19/19 Hydroxychloroquine Sulfate [Plaquenil 200 mg Tablet] 200 mg PO Q12 05/19/19 Insulin Glargine,Hum.rec.anlog [Lantus Insulin 100 Unit/1 ml 10 ml] 5 units SQ QHS 05/19/19 Insulin Lispro [Humalog Insulin (Lispro) 100 unit/mL] See Protocol SQ ACHS 05/19/19 Ipratropium/Albuterol Sulfate [Duoneb 3 ml Ampul] 1 vial NEB Q6HP PRN 05/19/19 Ketotifen Fumarate [Refresh] 1 drop OU DAILYP PRN 05/19/19 Lactulose [Kristalose 20 gm Packet] 20 gm PO DAILY 05/19/19 Levothyroxine Sodium [Synthroid 0.088 mg Tablet] 0.088 mg PO Q6AM 05/19/19 Metoprolol Succinate [Toprol Xl 25 mg Tab.sr] 25 mg PO QHS 05/19/19 Miconazole Nitrate [Antifungal Cream] 1 applic TOP BID 05/19/19 Mineral Oil/Petrolatum,White [Eucerin Cream 114 gm] 1 applic TOP BID 05/19/19 Montelukast Sodium [Singulair 10 mg Tablet] 10 mg PO QPM 05/19/19 Morphine Sulfate [Morphine Ir 15 mg Tablet] 15 mg PO TID 05/19/19 Naloxegol Oxalate [Movantik 25 mg Tablet] 25 mg PO DAILY 05/19/19 Ondansetron HCl [Zofran 4 mg Tablet] 4 mg PO Q6HP PRN 05/19/19 Oxycodone HCl [Oxycontin] 30 mg PO TID 05/19/19 Polyvinyl Alcohol [Liquitears 1.4% Ophth Soln 15 ml] 1 drop OU QIDP PRN 05/19/19 Potassium Chloride [Klor-Con 10 Meq Capsule ER] 10 meq PO Q12 05/19/19 Pregabalin [Lyrica] 150 mg PO TID 05/19/19 Psyllium Husk (with Sugar) [Metamucil Powder] 3.4 gm PO BID 05/19/19 Sennosides/Docusate Sodium [Senna-S Tablet] 1 tab PO BID 05/19/19 Sodium Chloride [[place] Saline] 1 spray NASL DAILYP PRN 05/19/19 Allergies/Adverse Reactions: ciprofloxacin [From Cipro] Allergy (Severe, Verified 05/18/19 16:05) Anaphylaxis Penicillins Allergy (Severe, Verified 05/18/19 16:05) Anaphylaxis adhesive tape [Adhesive Tape] Adverse Reaction (Severe, Verified 05/18/19 16:05) BLISTERS, SKIN BECOMES RAW indomethacin [From Indocin] Adverse Reaction (Severe, Verified 05/18/19 16:05) CAUSES SWELLING AND INFLAMMATION meperidine HCl [From Demerol] Adverse Reaction (Severe, Verified 05/18/19 16:05) Hallucinations Review of Systems Constitutional: ABSENT: chills, fever(s), headache(s), weight gain, weight loss Eyes: ABSENT: visual disturbances Ears: ABSENT: hearing changes Cardiovascular: ABSENT: chest pain, dyspnea on exertion, edema, orthropnea, palpitations Respiratory: ABSENT: cough, hemoptysis Gastrointestinal: PRESENT: abdominal pain, nausea, vomiting. ABSENT: constipation, diarrhea, hematemesis, hematochezia Genitourinary: ABSENT: dysuria, hematuria Musculoskeletal: ABSENT: joint swelling Integumentary: ABSENT: rash, wounds Neurological: ABSENT: abnormal gait, abnormal speech, confusion, dizziness, focal weakness, syncope Psychiatric: ABSENT: anxiety, depression, homidical ideation, suicidal ideation Endocrine: ABSENT: cold intolerance, heat intolerance, menstrual abnormalities, polydipsia, polyuria Hematologic/Lymphatic: ABSENT: easy bleeding, easy bruising, lymphadenopathy Physical Exam Vital Signs: Temp Pulse Resp BP Pulse Ox 98.1 F 66 13 133/49 H 98 05/19/19 07:50 05/19/19 07:50 05/19/19 07:50 05/19/19 07:50 05/19/19 07:50 Intake & Output 05/18/19 05/19/19 05/20/19 06:59 06:59 06:59 Intake Total 100 Output Total 200 Balance -200 100 Weight 153.64 kg General appearance: PRESENT: no acute distress, morbidly obese, well-developed, well-nourished Head exam: PRESENT: atraumatic, normocephalic Eye exam: PRESENT: conjunctiva pink, EOMI, PERRLA. ABSENT: scleral icterus Ear exam: PRESENT: normal external ear exam Mouth exam: PRESENT: moist, tongue midline Neck exam: PRESENT: full ROM. ABSENT: carotid bruit, JVD, lymphadenopathy, thyromegaly Respiratory exam: PRESENT: clear to auscultation pennie Cardiovascular exam: PRESENT: RRR. ABSENT: diastolic murmur, rubs, systolic murmur Pulses: PRESENT: normal dorsalis pedis pul, +2 pedal pulses bilateral Vascular exam: PRESENT: normal capillary refill GI/Abdominal exam: PRESENT: normal bowel sounds, soft. ABSENT: distended, guarding, mass, organolmegaly, rebound, tenderness Additonal comments: Suprapubic catheter is intact Rectal exam: PRESENT: deferred Extremities exam: ABSENT: pedal edema Neurological exam: PRESENT: alert, awake, oriented to person, oriented to place, oriented to time, oriented to situation. ABSENT: motor sensory deficit Psychiatric exam: PRESENT: appropriate affect, normal mood. ABSENT: homicidal ideation, suicidal ideation Skin exam: PRESENT: dry, intact, warm. ABSENT: cyanosis, rash Results Laboratory Results: 05/18/19 17:01 05/18/19 17:01 05/18/19 05/18/19 05/18/19 17: 17: 20:29 WBC 7.8 RBC 4.95 Hgb 14.9 Hct 44.7 MCV 90 MCH 30.1 MCHC 33.4 RDW 15.4 H Plt Count 196 Seg Neutrophils % 61.6 Lymphocytes % 28.3 Monocytes % 7.9 Eosinophils % 1.4 Basophils % 0.8 Absolute Neutrophils 4.8 Absolute Lymphocytes 2.2 Absolute Monocytes 0.6 Absolute Eosinophils 0.1 Absolute Basophils 0.1 Sodium 135.8 L Potassium 4.6 Chloride 97 L Carbon Dioxide 31 H Anion Gap 8 BUN 23 H Creatinine 0.86 Est GFR ( Amer) > 60 Est GFR (Non-Af Amer) > 60 Glucose 131 H Calcium 9.2 Total Bilirubin 0.3 AST 19 Alkaline Phosphatase 99 Total Protein 6.8 Albumin 3.9 Lipase 69.2 Urine Color YELLOW Urine Appearance CLEAR Urine pH 5.0 Ur Specific [place] 1.013 Urine Protein 30 H Urine Glucose (UA) NEGATIVE Urine Ketones NEGATIVE Urine Blood NEGATIVE Urine Nitrite NEGATIVE Ur Leukocyte Esterase SMALL H Ur Squamous Epith Cells FEW Blood Type Antibody Screen 05/19/19 00:25 WBC RBC Hgb Hct MCV MCH MCHC RDW Plt Count Seg Neutrophils % Lymphocytes % Monocytes % Eosinophils % Basophils % Absolute Neutrophils Absolute Lymphocytes Absolute Monocytes Absolute Eosinophils Absolute Basophils Sodium Potassium Chloride Carbon Dioxide Anion Gap BUN Creatinine Est GFR ( Amer) Est GFR (Non-Af Amer) Glucose Calcium Total Bilirubin AST Alkaline Phosphatase Total Protein Albumin Lipase Urine Color Urine Appearance Urine pH Ur Specific [place] Urine Protein Urine Glucose (UA) Urine Ketones Urine Blood Urine Nitrite Ur Leukocyte Esterase Ur Squamous Epith Cells Blood Type A POSITIVE Antibody Screen NEGATIVE 05/18/19 05/18/19 05/19/19 17:01 17:01 00:25 Creatine Kinase 66 Troponin I < 0.012 < 0.012 05/19/19 07:10 Creatine Kinase Troponin I < 0.012 Impressions: Abdomen/Pelvis CT 05/18/19 23:57 IMPRESSION: No evidence for obstruction on this exam. Nondilated fluid-filled/contrast filled loops of small bowel are noted. No free air or free fluid. TECHNICAL DOCUMENTATION: Quality ID # [id number]: Final reports with documentation of one or more dose reduction techniques (e.g., Automated exposure control, adjustment of the mA and/or kV according to patient size, use of iterative reconstruction technique) copyright 2011 [employer]- All Rights Reserved Assessment & Plan - Diagnosis (1) Abdominal pain Qualifiers: Abdominal location: unspecified location Qualified Code(s): R10.9 - Unspecified abdominal pain Is this a current diagnosis for this admission?: Yes Plan: Patient CT scan of the abdomen and pelvis is all stable discussed with the surgery no need for any interventions but patients need to remove the LAP-BAND and patient to he will follow that (2) Nausea & vomiting Qualifiers: Vomiting type: unspecified Vomiting Intractability: non-intractable Qualified Code(s): R11.2 - Nausea with vomiting, unspecified Is this a current diagnosis for this admission?: Yes Plan: Currently all stable as patient states to the LAP-BAND to be removed (3) CKD stage 2 due to type 2 diabetes mellitus Is this a current diagnosis for this admission?: Yes Plan: Currently all stable (4) Chronic pain syndrome Is this a current diagnosis for this admission?: Yes Plan: Patients follow with the pain management in a long time current pain medications (5) Diastolic congestive heart failure Qualifiers: Heart failure chronicity: acute on chronic Qualified Code(s): I50.33 - Acute on chronic diastolic (congestive) heart failure Is this a current diagnosis for this admission?: Yes Plan: Continues to current medications patients follow outpatients cardiology (6) Hyperlipidemia Qualifiers: Hyperlipidemia type: unspecified Qualified Code(s): E78.5 - Hyperlipidemia, unspecified Is this a current diagnosis for this admission?: Yes (7) Hypertension Qualifiers: Hypertension type: essential hypertension Qualified Code(s): I10 - Essential (primary) hypertension Is this a current diagnosis for this admission?: Yes Plan: Currently all stable (8) Neurogenic bladder Is this a current diagnosis for this admission?: Yes Plan: Status post suprapubic catheter (9) Recurrent urinary tract infection Is this a current diagnosis for this admission?: Yes Plan: The above conditions patient is currently follow with the urology patient also seen by infectious disease (10) Rheumatoid arthritis Qualifiers: Rheumatoid arthritis location: multiple sites Is this a current diagnosis for this admission?: Yes (11) Sleep apnea Qualifiers: Sleep apnea type: unspecified type Qualified Code(s): G47.30 - Sleep apnea, unspecified Is this a current diagnosis for this admission?: Yes (12) Type 2 diabetes mellitus Qualifiers: Diabetes mellitus senior living insulin use: unspecified senior living insulin use status Diabetes mellitus complication status: with kidney complications Diabetes mellitus complication detail: with nephropathy Qualified Code(s): E11.21 - Type 2 diabetes mellitus with diabetic nephropathy Is this a current diagnosis for this admission?: Yes Plan: Continues to sliding scale (13) Constipation Qualifiers: Constipation type: unspecified constipation type Qualified Code(s): K59.00 - Constipation, unspecified Is this a current diagnosis for this admission?: Yes Plan: To the chronic pain medications and chronic diabetic conditions surgery adjust the medications - Time Time Spent: 50 to 70 Minutes Medications reviewed and adjusted accordingly: Yes Anticipated discharge: SNF Within: Other - Inpatient Certification Based on my medical assessment, after consideration of the patient's comorbidities, presenting symptoms, or acuity I expect that the services needed warrant INPATIENT care.: Yes I certify that my determination is in accordance with my understanding of Medicare's requirements for reasonable and necessary INPATIENT services [42 CFR 412.3e].: Yes Medical Necessity: Significant Comorbidiites Make Outpatient Treatment Too Risky, Need For IV Fluids Post Hospital Care: D/C Front Loader Residential 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
[2019-05-19] MEDS: MORPHINE SULFATE IR 15 MG TABLET PO SCH ×2 (13:31→21:10)
[2019-05-19] MEDS ORDERED: LACTULOSE SYRUP 20 GM/30 ML UDCUP PO ONE (15:45)
[2019-05-19] MEDS ORDERED: CARBOXYMETHYLCELLULOSE SOD 0.5% 0.4 ML DROPERETTE OU PRN (16:56)
[2019-05-19] MEDS ORDERED: DEXTROSE 50%-WATER SYRINGE 25 GM/50 ML DOSE IV PRN (17:00)
[2019-05-19] MEDS ORDERED: DEXTROSE 50%-WATER SYRINGE 12.5 GM/25 ML DOSE IV PRN (17:00)
[2019-05-19] MEDS ORDERED: DEXTROSE 40% GEL 15 GM TUBE X 2 PO PRN (17:00)
[2019-05-19] MEDS: MONTELUKAST SODIUM 10 MG TABLET PO SCH (17:08)
[2019-05-19] MEDS: METOPROLOL SUCCINATE 25 MG TAB.SR.24H PO SCH (21:09)
[2019-05-20 04:34] LABS: ABSOLUTE EOSINOPHILS # (AUTO) 0.1 10^3/uL (0.0-0.6); ABSOLUTE LYMPHOCYTES (AUTO) 2.1 10^3/uL (0.5-4.7); ABSOLUTE MONOCYTES (AUTO) 0.6 10^3/uL (0.1-1.4); BASOPHILS % (AUTO) 0.6 % (0-2); EOSINOPHILS % (AUTO) 2.5 % (0-6); HEMATOCRIT 42.3 % (36.0-47.0); HEMOGLOBIN 13.9 g/dL (12.0-15.5); LYMPHOCYTES % (AUTO) 35.7 % (13-45); MEAN CORPUSCULAR VOLUME 91 fl (80-97); MONOCYTES % (AUTO) 10.1 % (3-13); PLATELET COUNT 159 10^3/uL (150-450); RED BLOOD COUNT 4.65 10^6/uL (3.72-5.28); RED CELL DISTRIBUTION WIDTH 15.4 % (11.5-14.0); SEGMENTED NEUTROPHILS % (AUTO) 51.1 % (42-78); TOTAL CELLS COUNTED % (AUTO) 100 %; WHITE BLOOD COUNT 5.9 10^3/uL (4.0-10.5)
[2019-05-20 04:58] LABS: ALBUMIN 3.3 g/dL (3.5-5.0); ALKALINE PHOSPHATASE 96 U/L (38-126); ANION GAP 8 (5-19); ASPARTATE AMINO TRANSFERASE 18 U/L (14-36); BILIRUBIN,DIRECT 0.3 mg/dL (0.0-0.4); BILIRUBIN,TOTAL 0.6 mg/dL (0.2-1.3); BLOOD UREA NITROGEN 15 mg/dL (7-20); CALCIUM 8.7 mg/dL (8.4-10.2); CARBON DIOXIDE 28 mmol/L (22-30); CHLORIDE 101 mmol/L (98-107); GLUCOSE 122 mg/dL (75-110); POTASSIUM 4.1 mmol/L (3.6-5.0)
[2019-05-20] MEDS: MORPHINE SULFATE IR 15 MG TABLET PO SCH ×3 (05:26→21:34)
[2019-05-20] MEDS: HEPARIN SOD (PORCINE) 5,000 UNIT/ML 1 ML VIAL SUBCUT SCH ×3 (05:26→21:27)
[2019-05-20] MEDS: LEVOTHYROXINE SODIUM 0.088 MG TABLET PO SCH (05:26)
[2019-05-20] MEDS: INSULIN LISPRO 100 UNIT/ML 3 ML VIAL SUBCUT SCH ×4 (08:20→21:38)
[2019-05-20] MEDS: CYCLOSPORINE 0.05% OPH EMULSIO 0.4 ML DROPERETTE OU SCH ×2 (10:16→21:34)
[2019-05-20] MEDS: MINERAL OIL/PETROLATUM,WHITE CREAM 114 GM TOP SCH ×2 (10:16→17:13)
[2019-05-20] MEDS: MICONAZOLE NITRATE 2% CREAM 15GM TOP SCH ×2 (10:17→17:13)
[2019-05-20] MEDS: CALCIUM CARBONATE 500 MG TABLET PO SCH (10:20)
[2019-05-20] MEDS: AMLODIPINE BESYLATE 5 MG TABLET PO SCH (10:20)
[2019-05-20] MEDS: PANTOPRAZOLE SODIUM 40 MG VIAL IV SCH ×2 (10:20→21:33)
[2019-05-20] MEDS: FLUTICASONE/VILANTEROL 200-25 MCG/DOSE IH SCH (10:20)
[2019-05-20] MEDS: POTASSIUM CHLORIDE 10 MEQ CAPSULE.ER PO SCH ×2 (10:20→21:33)
[2019-05-20] MEDS: SENNOSIDES/DOCUSATE 8.6-50 MG 1 EACH TABLET PO SCH ×2 (10:21→17:14)
[2019-05-20] MEDS: FUROSEMIDE 40 MG TABLET PO SCH ×2 (10:21→17:14)
--- NOTE | 2019-05-20 10:21 | RADIOLOGY REPORT (SQ) ---
EXAM DESCRIPTION: KUB/ABDOMEN (SINGLE VIEW) COMPLETED DATE/TIME: 05/20/2019 9:42 am REASON FOR STUDY: sbo COMPARISON: None. NUMBER OF VIEWS: One view. TECHNIQUE: Supine radiographic image of the abdomen acquired. LIMITATIONS: None. FINDINGS: BOWEL GAS PATTERN: Scattered non-dilated small bowel loops. No obstructive pattern. CALCIFICATIONS: No suspicious calcifications. SOFT TISSUES: No gross mass or suggestion of organomegaly. HARDWARE: Cholecystectomy clips. Tubing overlies the central and left upper quadrant. BONES: No acute fracture. No worrisome bone lesions. OTHER: No other significant finding. IMPRESSION: NON-SPECIFIC BOWEL GAS PATTERN WITHOUT EVIDENCE FOR OBSTRUCTION. TECHNICAL DOCUMENTATION: JOB ID: [id number] [place]-72 2010 [employer]- All Rights Reserved Reading location - IP/workstation name: [email or web address]
[2019-05-20] MEDS: BACLOFEN 10 MG TABLET PO SCH ×3 (10:22→17:14)
[2019-05-20] MEDS: ALLOPURINOL 300 MG TABLET PO SCH (10:22)
[2019-05-20] MEDS: HYDROXYCHLOROQUINE SULFATE 200 MG TABLET PO SCH ×2 (10:22→21:34)
--- NOTE | 2019-05-20 11:22 | PDOC PROGRESS REPORT ---
Subjective Progress Note for:: 05/20/19 Subjective:: Patient is currently doing well Patient is denied any chest pain no short of breath Patient's KUB is all stable Reason For Visit: SBO Physical Exam Vital Signs: Temp Pulse Resp BP Pulse Ox 97.8 F 66 20 126/45 H 96 05/20/19 07:17 05/20/19 07:17 05/20/19 07:17 05/20/19 07:17 05/20/19 07:17 Intake & Output 05/19/19 05/20/19 05/21/19 06:59 06:59 06:59 Intake Total 2080 Output Total 200 3100 Balance -200 -1020 Weight 153.64 kg 161.4 kg General appearance: PRESENT: no acute distress, well-developed, well-nourished Head exam: PRESENT: atraumatic, normocephalic Eye exam: PRESENT: conjunctiva pink, EOMI, PERRLA. ABSENT: scleral icterus Ear exam: PRESENT: normal external ear exam Mouth exam: PRESENT: moist, tongue midline Neck exam: PRESENT: full ROM. ABSENT: carotid bruit, JVD, lymphadenopathy, thyromegaly Respiratory exam: PRESENT: clear to auscultation pennie Cardiovascular exam: PRESENT: RRR. ABSENT: diastolic murmur, rubs, systolic murmur Pulses: PRESENT: normal dorsalis pedis pul, +2 pedal pulses bilateral Vascular exam: PRESENT: normal capillary refill GI/Abdominal exam: PRESENT: normal bowel sounds, soft. ABSENT: distended, guarding, mass, organolmegaly, rebound, tenderness Rectal exam: PRESENT: deferred Neurological exam: PRESENT: alert, awake, oriented to person, oriented to place, oriented to time, oriented to situation, CN II-XII grossly intact. ABSENT: motor sensory deficit Psychiatric exam: PRESENT: appropriate affect, normal mood. ABSENT: homicidal ideation, suicidal ideation Skin exam: PRESENT: dry, intact, warm. ABSENT: cyanosis, rash Results Laboratory Results: 05/20/19 03:55 05/20/19 03:55 05/20/19 05/20/19 03:55 03:55 WBC 5.9 RBC 4.65 Hgb 13.9 Hct 42.3 MCV 91 MCH 30.0 MCHC 33.0 RDW 15.4 H Plt Count 159 Seg Neutrophils % 51.1 Lymphocytes % 35.7 Monocytes % 10.1 Eosinophils % 2.5 Basophils % 0.6 Absolute Neutrophils 3.0 Absolute Lymphocytes 2.1 Absolute Monocytes 0.6 Absolute Eosinophils 0.1 Absolute Basophils 0.0 Sodium 137.3 Potassium 4.1 Chloride 101 Carbon Dioxide 28 Anion Gap 8 BUN 15 Creatinine 0.76 Est GFR ( Amer) > 60 Est GFR (Non-Af Amer) > 60 Glucose 122 H Calcium 8.7 Magnesium 2.0 Total Bilirubin 0.6 AST 18 Alkaline Phosphatase 96 Total Protein 6.0 L Albumin 3.3 L 05/18/19 20:29 Sales Catheter Urine Culture - Final NO GROWTH 2 DAYS 05/18/19 05/18/19 05/19/19 17:01 17:01 00:25 Creatine Kinase 66 Troponin I < 0.012 < 0.012 05/19/19 05/19/19 07:10 12:30 Creatine Kinase Troponin I < 0.012 < 0.012 Impressions: Abdomen/Pelvis CT 05/18/19 23:57 IMPRESSION: No evidence for obstruction on this exam. Nondilated fluid-filled/contrast filled loops of small bowel are noted. No free air or free fluid. TECHNICAL DOCUMENTATION: Quality ID # [id number]: Final reports with documentation of one or more dose reduction techniques (e.g., Automated exposure control, adjustment of the mA and/or kV according to patient size, use of iterative reconstruction technique) copyright 2011 [employer]- All Rights Reserved KUB X-Ray 05/20/19 00:00 IMPRESSION: NON-SPECIFIC BOWEL GAS PATTERN WITHOUT EVIDENCE FOR OBSTRUCTION. Assessment & Plan - Diagnosis (1) Abdominal pain Qualifiers: Abdominal location: unspecified location Qualified Code(s): R10.9 - Unspecified abdominal pain Is this a current diagnosis for this admission?: Yes Plan: Currently all resolved (2) Nausea & vomiting Qualifiers: Vomiting type: unspecified Vomiting Intractability: non-intractable Qualified Code(s): R11.2 - Nausea with vomiting, unspecified Is this a current diagnosis for this admission?: Yes Plan: Per surgery patient was given a LAP-BAND which to need remove (3) CKD stage 2 due to type 2 diabetes mellitus Is this a current diagnosis for this admission?: Yes Plan: Currently all stable (4) Chronic pain syndrome Is this a current diagnosis for this admission?: Yes Plan: Patients follow with the pain management in a long time current pain medications (5) Diastolic congestive heart failure Qualifiers: Heart failure chronicity: acute on chronic Qualified Code(s): I50.33 - Acute on chronic diastolic (congestive) heart failure Is this a current diagnosis for this admission?: Yes Plan: Continues to current medications patients follow outpatients cardiology (6) Hyperlipidemia Qualifiers: Hyperlipidemia type: unspecified Qualified Code(s): E78.5 - Hyperlipidemia, unspecified Is this a current diagnosis for this admission?: Yes (7) Hypertension Qualifiers: Hypertension type: essential hypertension Qualified Code(s): I10 - Essential (primary) hypertension Is this a current diagnosis for this admission?: Yes Plan: Currently all stable (8) Neurogenic bladder Is this a current diagnosis for this admission?: Yes Plan: Status post suprapubic catheter (9) Recurrent urinary tract infection Is this a current diagnosis for this admission?: Yes Plan: The above conditions patient is currently follow with the urology patient also seen by infectious disease (10) Rheumatoid arthritis Qualifiers: Rheumatoid arthritis location: multiple sites Is this a current diagnosis for this admission?: Yes (11) Sleep apnea Qualifiers: Sleep apnea type: unspecified type Qualified Code(s): G47.30 - Sleep apnea, unspecified Is this a current diagnosis for this admission?: Yes (12) Type 2 diabetes mellitus 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: 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 insulin use: unspecified 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 insulin use status Diabetes mellitus complication status: with kidney complications Diabetes mellitus complication detail: with nephropathy Qualified Code(s): E11.21 - Type 2 diabetes mellitus with diabetic nephropathy Is this a current diagnosis for this admission?: Yes Plan: Continues to sliding scale (13) Constipation Qualifiers: Constipation type: unspecified constipation type Qualified Code(s): K59.00 - Constipation, unspecified Is this a current diagnosis for this admission?: Yes - Time Time Spent with patient: 15-24 minutes Medications reviewed and adjusted accordingly: Yes Anticipated discharge: SNF Within: Other - Plan Summary Plan Summary: Patient is complaining some vaginal itching and asking for the Diflucan
--- NOTE | 2019-05-20 11:41 | PDOC PROGRESS REPORT ---
Subjective Progress Note for:: 05/20/19 Subjective:: This is a 69-year-old female with a history of chronic narcotic use, and severe/resistant/chronic constipation. The patient reports abdominal pain and difficulty having bowel movements. The patient reports that she was previously on a bowel regimen that worked very well, however at the nursing facility that she resides they have discontinued this bowel regimen. Since the discontinuation of her bowel regimen, she finds it very difficult to have a bowel movement. Her abdominal pain worsens when she becomes constipated. Currently she denies headache, chest pain, shortness of breath, fevers, chills, nausea, vomiting, headache, blurry vision. She does report malaise, fatigue, and cramping abdominal discomfort. Reason For Visit: SBO Physical Exam Vital Signs: Temp Pulse Resp BP Pulse Ox 97.8 F 66 20 126/45 H 96 05/20/19 07:17 05/20/19 07:17 05/20/19 07:17 05/20/19 07:17 05/20/19 07:17 Intake & Output 05/19/19 05/20/19 05/21/19 06:59 06:59 06:59 Intake Total 2080 Output Total 200 3100 Balance -200 -1020 Weight 153.64 kg 161.4 kg General appearance: PRESENT: no acute distress, morbidly obese Head exam: PRESENT: atraumatic, normocephalic Eye exam: PRESENT: EOMI, PERRLA. ABSENT: scleral icterus Mouth exam: PRESENT: moist Neck exam: ABSENT: meningismus, tenderness, tracheal deviation Respiratory exam: PRESENT: unlabored. ABSENT: tachypnea, wheezes Pulses: PRESENT: normal radial pulses GI/Abdominal exam: PRESENT: soft, other - Morbidly obese. ABSENT: distended, guarding, rebound, rigid Rectal exam: PRESENT: deferred Extremities exam: ABSENT: clubbing Neurological exam: PRESENT: alert, awake, oriented to person, oriented to place, oriented to time, oriented to situation Psychiatric exam: ABSENT: agitated, anxious, depressed Focused psych exam: ABSENT: delusional Skin exam: ABSENT: cyanosis, erythema, jaundice Results Laboratory Results: 05/20/19 03:55 05/20/19 03:55 05/20/19 05/20/19 03:55 03:55 WBC 5.9 RBC 4.65 Hgb 13.9 Hct 42.3 MCV 91 MCH 30.0 MCHC 33.0 RDW 15.4 H Plt Count 159 Seg Neutrophils % 51.1 Lymphocytes % 35.7 Monocytes % 10.1 Eosinophils % 2.5 Basophils % 0.6 Absolute Neutrophils 3.0 Absolute Lymphocytes 2.1 Absolute Monocytes 0.6 Absolute Eosinophils 0.1 Absolute Basophils 0.0 Sodium 137.3 Potassium 4.1 Chloride 101 Carbon Dioxide 28 Anion Gap 8 BUN 15 Creatinine 0.76 Est GFR ( Amer) > 60 Est GFR (Non-Af Amer) > 60 Glucose 122 H Calcium 8.7 Magnesium 2.0 Total Bilirubin 0.6 AST 18 Alkaline Phosphatase 96 Total Protein 6.0 L Albumin 3.3 L 05/18/19 20:29 Sales Catheter Urine Culture - Final NO GROWTH 2 DAYS 05/18/19 05/18/19 05/19/19 17:01 17:01 00:25 Creatine Kinase 66 Troponin I < 0.012 < 0.012 05/19/19 05/19/19 07:10 12:30 Creatine Kinase Troponin I < 0.012 < 0.012 Impressions: Abdomen/Pelvis CT 05/18/19 23:57 IMPRESSION: No evidence for obstruction on this exam. Nondilated fluid-filled/contrast filled loops of small bowel are noted. No free air or free fluid. TECHNICAL DOCUMENTATION: Quality ID # [id number]: Final reports with documentation of one or more dose reduction techniques (e.g., Automated exposure control, adjustment of the mA and/or kV according to patient size, use of iterative reconstruction technique) copyright 2011 [employer]- All Rights Reserved KUB X-Ray 05/20/19 00:00 IMPRESSION: NON-SPECIFIC BOWEL GAS PATTERN WITHOUT EVIDENCE FOR OBSTRUCTION. Assessment & Plan - Diagnosis (1) Constipation Qualifiers: Constipation type: unspecified constipation type Qualified Code(s): K59.00 - Constipation, unspecified Is this a current diagnosis for this admission?: Yes - Plan Summary Plan Summary: This is a 69-year-old female with chronic constipation. Her x-ray today shows no evidence of obstruction. There is air throughout the colon, with a large amount of stool in the descending and sigmoid colon. The patient still reports that it is difficult to have a bowel movement. I will add MiraLAX to her current bowel regimen. The patient reports that enemas have worked well for her in the past. I will order a warm, 1 L tap water enema for today. Dr. Mallory yesterday discussed the patient's unused LAP-BAND. He will discuss further treatment of her nonfunctional LAP-BAND with her tomorrow. Will follow.
[2019-05-20] MEDS: ONDANSETRON HCL INJ/PF 4 MG/2 ML SDV IV PRN (14:10)
[2019-05-20] MEDS: POLYETHYLENE GLYCOL 3350 POWDER 17 GM/1 PACKET PO SCH (17:13)
[2019-05-20] MEDS: MONTELUKAST SODIUM 10 MG TABLET PO SCH (17:14)
[2019-05-20] MEDS: METOPROLOL SUCCINATE 25 MG TAB.SR.24H PO SCH (21:34)
[2019-05-21] MEDS: HEPARIN SOD (PORCINE) 5,000 UNIT/ML 1 ML VIAL SUBCUT SCH ×3 (05:17→21:33)
[2019-05-21] MEDS: LEVOTHYROXINE SODIUM 0.088 MG TABLET PO SCH (05:22)
[2019-05-21] MEDS: MORPHINE SULFATE IR 15 MG TABLET PO SCH ×3 (05:22→21:56)
[2019-05-21 05:57] LABS: ABSOLUTE EOSINOPHILS # (AUTO) 0.1 10^3/uL (0.0-0.6); ABSOLUTE LYMPHOCYTES (AUTO) 1.9 10^3/uL (0.5-4.7); ABSOLUTE MONOCYTES (AUTO) 0.7 10^3/uL (0.1-1.4); BASOPHILS % (AUTO) 0.6 % (0-2); EOSINOPHILS % (AUTO) 2.4 % (0-6); HEMATOCRIT 40.4 % (36.0-47.0); HEMOGLOBIN 13.5 g/dL (12.0-15.5); LYMPHOCYTES % (AUTO) 32.8 % (13-45); MEAN CORPUSCULAR HEMOGLOBIN 30.2 pg (27.0-33.4); MEAN CORPUSCULAR HGB CONC 33.4 g/dL (32.0-36.0); MEAN CORPUSCULAR VOLUME 91 fl (80-97); MONOCYTES % (AUTO) 12.7 % (3-13); PLATELET COUNT 157 10^3/uL (150-450); RED BLOOD COUNT 4.47 10^6/uL (3.72-5.28); RED CELL DISTRIBUTION WIDTH 15.7 % (11.5-14.0); SEGMENTED NEUTROPHILS % (AUTO) 51.5 % (42-78); TOTAL CELLS COUNTED % (AUTO) 100 %; WHITE BLOOD COUNT 5.7 10^3/uL (4.0-10.5)
[2019-05-21 06:40] LABS: ANION GAP 7 (5-19); BLOOD UREA NITROGEN 13 mg/dL (7-20); CALCIUM 8.9 mg/dL (8.4-10.2); CARBON DIOXIDE 31 mmol/L (22-30); CHLORIDE 101 mmol/L (98-107); GLUCOSE 115 mg/dL (75-110); POTASSIUM 4.4 mmol/L (3.6-5.0)
[2019-05-21] MEDS: INSULIN LISPRO 100 UNIT/ML 3 ML VIAL SUBCUT SCH ×4 (07:43→21:56)
--- NOTE | 2019-05-21 07:56 | PDOC PROGRESS REPORT ---
Subjective Progress Note for:: 05/21/19 Reason For Visit: SBO constpation Physical Exam Vital Signs: Temp Pulse Resp BP Pulse Ox 97.7 F 63 21 H 145/66 H 95 05/21/19 00:00 05/21/19 02:00 05/21/19 00:00 05/21/19 00:00 05/21/19 00:00 Intake & Output 05/20/19 05/21/19 05/22/19 06:59 06:59 06:59 Intake Total 2080 3330 Output Total 3100 2800 Balance -1020 530 Weight 161.4 kg 158.9 kg General appearance: PRESENT: morbidly obese Head exam: PRESENT: normocephalic Eye exam: PRESENT: EOMI Mouth exam: PRESENT: moist Teeth exam: PRESENT: poor dentation Neck exam: PRESENT: full ROM Respiratory exam: PRESENT: clear to auscultation pennie Cardiovascular exam: PRESENT: RRR GI/Abdominal exam: PRESENT: soft Rectal exam: PRESENT: deferred Extremities exam: PRESENT: full ROM Musculoskeletal exam: PRESENT: full ROM Neurological exam: PRESENT: alert, awake, oriented to person, oriented to place Psychiatric exam: PRESENT: appropriate affect Skin exam: PRESENT: dry Results Laboratory Results: 05/21/19 05:21 05/21/19 05:21 05/21/19 05/21/19 05:21 05:21 WBC 5.7 RBC 4.47 Hgb 13.5 Hct 40.4 MCV 91 MCH 30.2 MCHC 33.4 RDW 15.7 H Plt Count 157 Seg Neutrophils % 51.5 Lymphocytes % 32.8 Monocytes % 12.7 Eosinophils % 2.4 Basophils % 0.6 Absolute Neutrophils 3.0 Absolute Lymphocytes 1.9 Absolute Monocytes 0.7 Absolute Eosinophils 0.1 Absolute Basophils 0.0 Sodium 138.8 Potassium 4.4 Chloride 101 Carbon Dioxide 31 H Anion Gap 7 BUN 13 Creatinine 0.76 Est GFR ( Amer) > 60 Est GFR (Non-Af Amer) > 60 Glucose 115 H Calcium 8.9 Magnesium 2.1 05/18/19 20:29 Sales Catheter Urine Culture - Final NO GROWTH 2 DAYS 05/18/19 05/18/19 05/19/19 17:01 17:01 00:25 Creatine Kinase 66 Troponin I < 0.012 < 0.012 05/19/19 05/19/19 07:10 12:30 Creatine Kinase Troponin I < 0.012 < 0.012 Impressions: Abdomen/Pelvis CT 05/18/19 23:57 IMPRESSION: No evidence for obstruction on this exam. Nondilated fluid-filled/contrast filled loops of small bowel are noted. No free air or free fluid. TECHNICAL DOCUMENTATION: Quality ID # [id number]: Final reports with documentation of one or more dose reduction techniques (e.g., Automated exposure control, adjustment of the mA and/or kV according to patient size, use of iterative reconstruction technique) copyright 2011 [employer]- All Rights Reserved KUB X-Ray 05/20/19 00:00 IMPRESSION: NON-SPECIFIC BOWEL GAS PATTERN WITHOUT EVIDENCE FOR OBSTRUCTION. Assessment & Plan - Plan Summary Plan Summary: admitted for possible sbo 'rx for constipation now passing stool and flatus [place] reg diet will need f/u in surgery clinic for lap band removal please consult surgery as necessary.
[2019-05-21] MEDS: ONDANSETRON HCL INJ/PF 4 MG/2 ML SDV IV PRN ×2 (08:18→21:55)
[2019-05-21] MEDS: POLYETHYLENE GLYCOL 3350 POWDER 17 GM/1 PACKET PO SCH ×2 (09:47→17:35)
[2019-05-21] MEDS: FUROSEMIDE 40 MG TABLET PO SCH ×2 (09:54→17:33)
[2019-05-21] MEDS: HYDROXYCHLOROQUINE SULFATE 200 MG TABLET PO SCH ×2 (09:54→21:56)
[2019-05-21] MEDS: BACLOFEN 10 MG TABLET PO SCH ×3 (09:54→17:33)
[2019-05-21] MEDS: POTASSIUM CHLORIDE 10 MEQ CAPSULE.ER PO SCH ×2 (09:54→21:56)
[2019-05-21] MEDS: AMLODIPINE BESYLATE 5 MG TABLET PO SCH (09:54)
[2019-05-21] MEDS: CALCIUM CARBONATE 500 MG TABLET PO SCH (09:54)
[2019-05-21] MEDS: FLUTICASONE/VILANTEROL 200-25 MCG/DOSE IH SCH (09:54)
[2019-05-21] MEDS: PANTOPRAZOLE SODIUM 40 MG VIAL IV SCH ×2 (09:54→21:50)
[2019-05-21] MEDS: ALLOPURINOL 300 MG TABLET PO SCH (09:55)
[2019-05-21] MEDS: SENNOSIDES/DOCUSATE 8.6-50 MG 1 EACH TABLET PO SCH ×2 (09:55→17:33)
[2019-05-21] MEDS: MICONAZOLE NITRATE 2% CREAM 15GM TOP SCH ×2 (10:00→17:35)
[2019-05-21] MEDS: MINERAL OIL/PETROLATUM,WHITE CREAM 114 GM TOP SCH ×2 (10:00→17:35)
[2019-05-21] MEDS: CYCLOSPORINE 0.05% OPH EMULSIO 0.4 ML DROPERETTE OU SCH ×2 (10:01→21:55)
--- NOTE | 2019-05-21 11:48 | PDOC PROGRESS REPORT ---
Subjective Progress Note for:: 05/21/19 Subjective:: Patient is currently doing much better Patient's denied any abdominal pain no nausea no vomiting Patient is passing a stool Reason For Visit: SBO Physical Exam Vital Signs: Temp Pulse Resp BP Pulse Ox 97.3 F 74 21 H 140/52 H 96 05/21/19 07:34 05/21/19 07:34 05/21/19 07:34 05/21/19 07:34 05/21/19 07:34 Intake & Output 05/20/19 05/21/19 05/22/19 06:59 06:59 06:59 Intake Total 2080 3330 Output Total 3100 2800 Balance -1020 530 Weight 161.4 kg 158.9 kg General appearance: PRESENT: no acute distress, well-developed, well-nourished Head exam: PRESENT: atraumatic, normocephalic Eye exam: PRESENT: conjunctiva pink, EOMI, PERRLA. ABSENT: scleral icterus Ear exam: PRESENT: normal external ear exam Mouth exam: PRESENT: moist, tongue midline Neck exam: PRESENT: full ROM. ABSENT: carotid bruit, JVD, lymphadenopathy, thyromegaly Respiratory exam: PRESENT: clear to auscultation pennie Cardiovascular exam: PRESENT: RRR. ABSENT: diastolic murmur, rubs, systolic murmur Pulses: PRESENT: normal dorsalis pedis pul, +2 pedal pulses bilateral Vascular exam: PRESENT: normal capillary refill GI/Abdominal exam: PRESENT: normal bowel sounds, soft. ABSENT: distended, guarding, mass, organolmegaly, rebound, tenderness Rectal exam: PRESENT: deferred Neurological exam: PRESENT: alert, awake, oriented to person, oriented to place. ABSENT: motor sensory deficit Psychiatric exam: PRESENT: appropriate affect, normal mood. ABSENT: homicidal ideation, suicidal ideation Skin exam: PRESENT: dry, intact, warm. ABSENT: cyanosis, rash Results Laboratory Results: 05/21/19 05:21 05/21/19 05:21 05/21/19 05/21/19 05:21 05:21 WBC 5.7 RBC 4.47 Hgb 13.5 Hct 40.4 MCV 91 MCH 30.2 MCHC 33.4 RDW 15.7 H Plt Count 157 Seg Neutrophils % 51.5 Lymphocytes % 32.8 Monocytes % 12.7 Eosinophils % 2.4 Basophils % 0.6 Absolute Neutrophils 3.0 Absolute Lymphocytes 1.9 Absolute Monocytes 0.7 Absolute Eosinophils 0.1 Absolute Basophils 0.0 Sodium 138.8 Potassium 4.4 Chloride 101 Carbon Dioxide 31 H Anion Gap 7 BUN 13 Creatinine 0.76 Est GFR ( Amer) > 60 Est GFR (Non-Af Amer) > 60 Glucose 115 H Calcium 8.9 Magnesium 2.1 05/18/19 20:29 Sales Catheter Urine Culture - Final NO GROWTH 2 DAYS 05/18/19 05/18/19 05/19/19 17:01 17:01 00:25 Creatine Kinase 66 Troponin I < 0.012 < 0.012 05/19/19 05/19/19 07:10 12:30 Creatine Kinase Troponin I < 0.012 < 0.012 Impressions: Abdomen/Pelvis CT 05/18/19 23:57 IMPRESSION: No evidence for obstruction on this exam. Nondilated fluid-filled/contrast filled loops of small bowel are noted. No free air or free fluid. TECHNICAL DOCUMENTATION: Quality ID # [id number]: Final reports with documentation of one or more dose reduction techniques (e.g., Automated exposure control, adjustment of the mA and/or kV according to patient size, use of iterative reconstruction technique) copyright 2011 [employer]- All Rights Reserved KUB X-Ray 05/20/19 00:00 IMPRESSION: NON-SPECIFIC BOWEL GAS PATTERN WITHOUT EVIDENCE FOR OBSTRUCTION. Assessment & Plan - Diagnosis (1) Abdominal pain Qualifiers: Abdominal location: unspecified location Qualified Code(s): R10.9 - Unspecified abdominal pain Is this a current diagnosis for this admission?: Yes Plan: Currently all resolved (2) Nausea & vomiting Qualifiers: Vomiting type: unspecified Vomiting Intractability: non-intractable Qualified Code(s): R11.2 - Nausea with vomiting, unspecified Is this a current diagnosis for this admission?: Yes Plan: Per surgery patient was given a LAP-BAND which to need remove (3) CKD stage 2 due to type 2 diabetes mellitus Is this a current diagnosis for this admission?: Yes Plan: Currently all stable (4) Chronic pain syndrome Is this a current diagnosis for this admission?: Yes Plan: Patients follow with the pain management in a long time current pain medications (5) Diastolic congestive heart failure Qualifiers: Heart failure chronicity: acute on chronic Qualified Code(s): I50.33 - Acute on chronic diastolic (congestive) heart failure Is this a current diagnosis for this admission?: Yes Plan: Continues to current medications patients follow outpatients cardiology (6) Hyperlipidemia Qualifiers: Hyperlipidemia type: unspecified Qualified Code(s): E78.5 - Hyperlipidemia, unspecified Is this a current diagnosis for this admission?: Yes (7) Hypertension Qualifiers: Hypertension type: essential hypertension Qualified Code(s): I10 - Essent ial (primary) hypertension Is this a current diagnosis for this admission?: Yes Plan: Currently all stable (8) Neurogenic bladder Is this a current diagnosis for this admission?: Yes Plan: Status post suprapubic catheter (9) Recurrent urinary tract infection Is this a current diagnosis for this admission?: Yes Plan: The above conditions patient is currently follow with the urology patient also seen by infectious disease (10) Rheumatoid arthritis Qualifiers: Rheumatoid arthritis location: multiple sites Is this a current diagnosis for this admission?: Yes (11) Sleep apnea Qualifiers: Sleep apnea type: unspecified type Qualified Code(s): G47.30 - Sleep apnea, unspecified Is this a current diagnosis for this admission?: Yes (12) Type 2 diabetes mellitus Qualifiers: Diabetes mellitus oil heaterman insulin use: unspecified oil heaterman insulin use status Diabetes mellitus complication status: with kidney complications Diabetes mellitus complication detail: with nephropathy Qualified Code(s): E11.21 - Type 2 diabetes mellitus with diabetic nephropathy Is this a current diagnosis for this admission?: Yes (13) Constipation Qualifiers: Constipation type: unspecified constipation type Qualified Code(s): K59.00 - Constipation, unspecified Is this a current diagnosis for this admission?: Yes - Time Time Spent with patient: 15-24 minutes Medications reviewed and adjusted accordingly: Yes Anticipated discharge: SNF Within: Other - Plan Summary Plan Summary: Continue current medications
[2019-05-21] MEDS: FLUCONAZOLE 100 MG TABLET PO SCH (13:03)
[2019-05-21] MEDS: MONTELUKAST SODIUM 10 MG TABLET PO SCH (17:33)
[2019-05-21] MEDS: METOPROLOL SUCCINATE 25 MG TAB.SR.24H PO SCH (21:56)
[2019-05-22 04:11] LABS: ABSOLUTE EOSINOPHILS # (AUTO) 0.1 10^3/uL (0.0-0.6); ABSOLUTE LYMPHOCYTES (AUTO) 1.9 10^3/uL (0.5-4.7); ABSOLUTE MONOCYTES (AUTO) 0.7 10^3/uL (0.1-1.4); ABSOLUTE NEUT (AUTO) 3.2 10^3/uL (1.7-8.2); BASOPHILS % (AUTO) 0.6 % (0-2); EOSINOPHILS % (AUTO) 2.2 % (0-6); HEMATOCRIT 41.2 % (36.0-47.0); MEAN CORPUSCULAR HEMOGLOBIN 30.6 pg (27.0-33.4); MEAN CORPUSCULAR HGB CONC 33.9 g/dL (32.0-36.0); MEAN CORPUSCULAR VOLUME 90 fl (80-97); PLATELET COUNT 158 10^3/uL (150-450); RED BLOOD COUNT 4.56 10^6/uL (3.72-5.28); RED CELL DISTRIBUTION WIDTH 15.9 % (11.5-14.0); SEGMENTED NEUTROPHILS % (AUTO) 54.2 % (42-78); TOTAL CELLS COUNTED % (AUTO) 100 %
[2019-05-22 04:35] LABS: ANION GAP 7 (5-19); BLOOD UREA NITROGEN 13 mg/dL (7-20); CALCIUM 8.8 mg/dL (8.4-10.2); CARBON DIOXIDE 33 mmol/L (22-30); CHLORIDE 99 mmol/L (98-107); GLUCOSE 117 mg/dL (75-110); POTASSIUM 3.9 mmol/L (3.6-5.0)
[2019-05-22] MEDS: HEPARIN SOD (PORCINE) 5,000 UNIT/ML 1 ML VIAL SUBCUT SCH ×3 (05:04→21:47)
[2019-05-22] MEDS: LEVOTHYROXINE SODIUM 0.088 MG TABLET PO SCH (05:08)
[2019-05-22] MEDS: MORPHINE SULFATE IR 15 MG TABLET PO SCH ×3 (05:08→21:47)
[2019-05-22] MEDS: INSULIN LISPRO 100 UNIT/ML 3 ML VIAL SUBCUT SCH ×4 (08:31→22:34)
[2019-05-22] MEDS: SENNOSIDES/DOCUSATE 8.6-50 MG 1 EACH TABLET PO SCH ×2 (10:19→18:01)
[2019-05-22] MEDS: ONDANSETRON HCL INJ/PF 4 MG/2 ML SDV IV PRN (10:19)
[2019-05-22] MEDS: POLYETHYLENE GLYCOL 3350 POWDER 17 GM/1 PACKET PO SCH ×2 (10:19→18:02)
[2019-05-22] MEDS: CALCIUM CARBONATE 500 MG TABLET PO SCH (10:19)
[2019-05-22] MEDS: CYCLOSPORINE 0.05% OPH EMULSIO 0.4 ML DROPERETTE OU SCH ×2 (10:19→21:47)
[2019-05-22] MEDS: POTASSIUM CHLORIDE 10 MEQ CAPSULE.ER PO SCH ×2 (10:20→21:46)
[2019-05-22] MEDS: FUROSEMIDE 40 MG TABLET PO SCH ×2 (10:20→18:01)
[2019-05-22] MEDS: ALLOPURINOL 300 MG TABLET PO SCH (10:20)
[2019-05-22] MEDS: PANTOPRAZOLE SODIUM 40 MG TABLET.DR PO SCH ×2 (10:20→21:47)
[2019-05-22] MEDS: HYDROXYCHLOROQUINE SULFATE 200 MG TABLET PO SCH ×2 (10:20→21:46)
[2019-05-22] MEDS: BACLOFEN 10 MG TABLET PO SCH ×3 (10:23→18:01)
[2019-05-22] MEDS: FLUCONAZOLE 100 MG TABLET PO SCH (10:23)
[2019-05-22] MEDS: AMLODIPINE BESYLATE 5 MG TABLET PO SCH (10:23)
[2019-05-22] MEDS: FLUTICASONE/VILANTEROL 200-25 MCG/DOSE IH SCH (12:32)
[2019-05-22] MEDS: MINERAL OIL/PETROLATUM,WHITE CREAM 114 GM TOP SCH ×2 (12:33→18:04)
[2019-05-22] MEDS: MICONAZOLE NITRATE 2% CREAM 15GM TOP SCH ×2 (12:33→18:17)
[2019-05-22] MEDS: MONTELUKAST SODIUM 10 MG TABLET PO SCH (18:01)
[2019-05-22] MEDS: METOPROLOL SUCCINATE 25 MG TAB.SR.24H PO SCH (21:46)
--- NOTE | 2019-05-22 22:31 | PDOC TRANSFER SUMMARY ---
General - Admit/Disc Date/PCP Admission Date/Primary Care Provider: 05/19/19 00:48 NAYLA GEE MD Discharge Date: 05/22/19 - Additional Information Resuscitation Status: Full Code Discharge Diet: Regular Home Medications: Adapalene [Differin Cream] 1 applic TOP BID 05/19/19 Allopurinol [Zyloprim 300 mg Tablet] 300 mg PO DAILY 05/19/19 Amlodipine Besylate [Norvasc 5 mg Tablet] 5 mg PO DAILY 05/19/19 Baclofen [Baclofen 10 mg Tablet] 10 mg PO TID 05/19/19 Benzocaine/Menthol [Chloraseptic Max Lozenge] 1 sean PO Q1HP PRN 05/19/19 Betamet Diprop/Prop Gly [Betamethasone Dp Aug 0.05% Cream] 1 applic TOP BID 05/19/19 Bisacodyl [Dulcolax 5 mg Tablet] 5 mg PO DAILYP PRN 05/19/19 Budesonide/Formoterol Fumarate [Symbicort HFA 160-4.5 mcg Inhaler 6 gm] 2 puff IH Q12 05/19/19 Calcium Carbonate [Calcium] 600 mg PO DAILY 05/19/19 Cholecalciferol (Vitamin D3) [Vitamin D3 1000 Unit Tablet] 4,000 unit PO DAILY 05/19/19 Cranberry Fruit Extract [Cranberry 250 mg Capsule] 250 mg PO DAILY 05/19/19 Cyclosporine 0.05% Oph Emulsio [Restasis 0.05% Oph Emulsion Pf 0.4 ml] 1 drop OU Q12 05/19/19 Diphenhydramine HCl [Benadryl] 25 mg PO Q8HP PRN 05/19/19 Furosemide [Lasix 40 mg Tablet] 40 mg PO BID 05/19/19 Glimepiride [Amaryl] 2 mg PO DAILY 05/19/19 Hydroxychloroquine Sulfate [Plaquenil 200 mg Tablet] 200 mg PO Q12 05/19/19 Insulin Glargine,Hum.rec.anlog [Lantus Insulin 100 Unit/1 ml 10 ml] 5 units SQ QHS 05/19/19 Insulin Lispro [Humalog Insulin (Lispro) 100 unit/mL] See Protocol SQ ACHS 05/19/19 Ipratropium/Albuterol Sulfate [Duoneb 3 ml Ampul] 1 vial NEB Q6HP PRN 05/19/19 Ketotifen Fumarate [Refresh] 1 drop OU DAILYP PRN 05/19/19 Lactulose [Kristalose 20 gm Packet] 20 gm PO DAILY 05/19/19 Levothyroxine Sodium [Synthroid 0.088 mg Tablet] 0.088 mg PO Q6AM 05/19/19 Metoprolol Succinate [Toprol Xl 25 mg Tab.sr] 25 mg PO QHS 05/19/19 Miconazole Nitrate [Antifungal Cream] 1 applic TOP BID 05/19/19 Mineral Oil/Petrolatum,White [Eucerin Cream 114 gm] 1 applic TOP BID 05/19/19 Montelukast Sodium [Singulair 10 mg Tablet] 10 mg PO QPM 05/19/19 Morphine Sulfate [Morphine Ir 15 mg Tablet] 15 mg PO TID 05/19/19 Naloxegol Oxalate [Movantik 25 mg Tablet] 25 mg PO DAILY 05/19/19 Ondansetron HCl [Zofran 4 mg Tablet] 4 mg PO Q6HP PRN 05/19/19 Oxycodone HCl [Oxycontin] 30 mg PO TID 05/19/19 Polyvinyl Alcohol [Liquitears 1.4% Ophth Soln 15 ml] 1 drop OU QIDP PRN 05/19/19 Potassium Chloride [Klor-Con 10 Meq Capsule ER] 10 meq PO Q12 05/19/19 Pregabalin [Lyrica] 150 mg PO TID 05/19/19 Psyllium Husk (with Sugar) [Metamucil Powder] 3.4 gm PO BID 05/19/19 Sennosides/Docusate Sodium [Senna-S Tablet] 1 tab PO BID 05/19/19 Sodium Chloride [[place] Saline] 1 spray NASL DAILYP PRN 05/19/19 Pantoprazole Sodium [Protonix [address] Tablet] 40 mg PO Q12 tablet. 05/22/19 Polyethylene Glycol 3350 [Miralax Powder 17 gm/Packet] 34 gm PO BID powd.pack 05/22/19 History of Present Illness Admission Date/PCP: 05/19/19 00:48 NAYLA GEE MD History of Present Illness: NETTA RICO is a 69 year old female, She came to the emergency room for evaluation of abdominal pain, vomiting, initially there was a concern she may have small bowel obstruction. Hospital Course Hospital Course: Patient was admitted for the management of possible small bowel obstruction, she was managed conservatively subsequent CAT scan with p.o. contrast was obtained, this was negative for an obstruction., Patient's abdominal symptom is most likely from chronic opioid use, she is on megadoses of opioid therapy including OxyContin and also morphine. Patient is not particularly interested in stopping all this opioid medication which is most likely the cause of her symptoms.She is very obese ,nonambulatory Physical Exam Vital Signs: Temp Pulse Resp BP Pulse Ox 97.6 F 68 18 127/52 H 98 05/22/19 20:48 05/22/19 20:48 05/22/19 20:48 05/22/19 20:48 05/22/19 20:48 Intake & Output 05/21/19 05/22/19 05/23/19 06:59 06:59 06:59 Intake Total 3330 2464 976 Output Total 2800 4500 1200 Balance 530 -2036 -224 Weight 158.9 kg 154.6 kg General appearance: PRESENT: no acute distress Head exam: PRESENT: atraumatic, normocephalic Eye exam: PRESENT: PERRLA Respiratory exam: PRESENT: clear to auscultation pennie Cardiovascular exam: PRESENT: RRR, +S1, +S2 Vascular exam: PRESENT: normal capillary refill GI/Abdominal exam: PRESENT: normal bowel sounds, soft Rectal exam: PRESENT: deferred Extremities exam: PRESENT: full ROM Neurological exam: PRESENT: alert, CN II-XII grossly intact Psychiatric exam: PRESENT: appropriate affect, normal mood Skin exam: PRESENT: dry, intact, warm Results Laboratory Results: 05/22/19 03:24 05/22/19 03:24 05/22/19 05/22/19 03:24 03:24 WBC 6.0 RBC 4.56 Hgb 14.0 Hct 41.2 MCV 90 MCH 30.6 MCHC 33.9 RDW 15.9 H Plt Count 158 Seg Neutrophils % 54.2 Lymphocytes % 31.0 Monocytes % 12.0 Eosinophils % 2.2 Basophils % 0.6 Absolute Neutrophils 3.2 Absolute Lymphocytes 1.9 Absolute Monocytes 0.7 Absolute Eosinophils 0.1 Absolute Basophils 0.0 Sodium 138.8 Potassium 3.9 Chloride 99 Carbon Dioxide 33 H Anion Gap 7 BUN 13 Creatinine 0.79 Est GFR ( Amer) > 60 Est GFR (Non-Af Amer) > 60 Glucose 117 H Calcium 8.8 Magnesium 2.0 05/18/19 05/18/19 05/19/19 17:01 17:01 00:25 Creatine Kinase 66 Troponin I < 0.012 < 0.012 05/19/19 05/19/19 07:10 12:30 Creatine Kinase Troponin I < 0.012 < 0.012 Impressions: Abdomen/Pelvis CT 05/18/19 23:57 IMPRESSION: No evidence for obstruction on this exam. Nondilated fluid-filled/contrast filled loops of small bowel are noted. No free air or free fluid. TECHNICAL DOCUMENTATION: Quality ID # [id number]: Final reports with documentation of one or more dose reduction techniques (e.g., Automated exposure control, adjustment of the mA and/or kV according to patient size, use of iterative reconstruction technique) copyright 2011 [employer]- All Rights Reserved KUB X-Ray 05/20/19 00:00 IMPRESSION: NON-SPECIFIC BOWEL GAS PATTERN WITHOUT EVIDENCE FOR OBSTRUCTION. Qualifiers - * PATIENT BEING DISCHARGED WITH ANY OF THE FOLLOWING DIAGNOSIS: No VTE patient discharged on overlapping Therapy?: No Reason(s) for not prescribing Overlap Therapy:: Not indicated Stroke Pt being discharged on Anti-thrombolytic therapy?: No Reason(s) for not prescribing Anti-thrombolytic therapy:: Not indicated Stroke Pt being discharged on Anti-coagulation therapy?: No Reason(s) for not prescribing Anti-coagulation therapy:: Not indicated Stroke Pt being discharged on Statins?: No Reason(s) for not prescribing Statins therapy:: Not indicated UT Pt being discharged on Aspirin therapy?: No Reason(s) for not prescribing Aspirin therapy:: Not indicated UT Pt being discharged on Statins?: No Reason(s) for not prescribing Statin therapy:: Not indicated UT Pt discharged ACEI/ARBS?: No Reason(s) for not prescribing ACEI/ARBS:: Not indicated Acute Heart Failure - Is this a Heart Failure Patient?: No e) For LVEF <35%, discharged on Aldosterone antagonist?: N/A (LVEF > or = 35%)
[2019-05-22] MEDS ORDERED: ONDANSETRON 4 MG TAB.RAPDIS PO PRN (23:00)
[2019-05-23] MEDS: MORPHINE SULFATE IR 15 MG TABLET PO SCH ×2 (05:08→14:17)
[2019-05-23] MEDS: LEVOTHYROXINE SODIUM 0.088 MG TABLET PO SCH (05:09)
[2019-05-23] MEDS: HEPARIN SOD (PORCINE) 5,000 UNIT/ML 1 ML VIAL SUBCUT SCH ×2 (05:10→14:32)
[2019-05-23 06:37] LABS: ANION GAP 6 (5-19); BLOOD UREA NITROGEN 13 mg/dL (7-20); CALCIUM 8.9 mg/dL (8.4-10.2); CARBON DIOXIDE 32 mmol/L (22-30); CHLORIDE 100 mmol/L (98-107); GLUCOSE 124 mg/dL (75-110); POTASSIUM 4.4 mmol/L (3.6-5.0)
[2019-05-23] MEDS: OXYCODONE HCL SR 10 MG TABLET PO SCH ×2 (08:50→14:17)
[2019-05-23] MEDS: INSULIN LISPRO 100 UNIT/ML 3 ML VIAL SUBCUT SCH ×2 (09:06→13:23)
[2019-05-23] MEDS: POTASSIUM CHLORIDE 10 MEQ CAPSULE.ER PO SCH (09:40)
[2019-05-23] MEDS: CALCIUM CARBONATE 500 MG TABLET PO SCH (09:41)
[2019-05-23] MEDS: BACLOFEN 10 MG TABLET PO SCH ×2 (09:41→14:16)
[2019-05-23] MEDS: FUROSEMIDE 40 MG TABLET PO SCH (09:41)
[2019-05-23] MEDS: FLUCONAZOLE 100 MG TABLET PO SCH (09:41)
[2019-05-23] MEDS: PANTOPRAZOLE SODIUM 40 MG TABLET.DR PO SCH (09:42)
[2019-05-23] MEDS: AMLODIPINE BESYLATE 5 MG TABLET PO SCH (09:43)
[2019-05-23] MEDS: ALLOPURINOL 300 MG TABLET PO SCH (09:43)
[2019-05-23] MEDS: PREGABALIN 75 MG CAPSULE PO SCH ×2 (09:44→14:18)
[2019-05-23] MEDS: CYCLOSPORINE 0.05% OPH EMULSIO 0.4 ML DROPERETTE OU SCH (09:45)
[2019-05-23] MEDS: HYDROXYCHLOROQUINE SULFATE 200 MG TABLET PO SCH (09:45)
[2019-05-23] MEDS: FLUTICASONE/VILANTEROL 200-25 MCG/DOSE IH SCH (09:56)
[2019-05-23] MEDS: POLYETHYLENE GLYCOL 3350 POWDER 17 GM/1 PACKET PO SCH (09:56)
[2019-05-23] MEDS: MINERAL OIL/PETROLATUM,WHITE CREAM 114 GM TOP SCH (09:56)
[2019-05-23] MEDS: SENNOSIDES/DOCUSATE 8.6-50 MG 1 EACH TABLET PO SCH (09:57)
[2019-05-23] MEDS: MICONAZOLE NITRATE 2% CREAM 15GM TOP SCH (09:57)
[2019-05-23] MEDS ORDERED: CHOLECALCIFEROL (D3) 1,000 UNIT (25 MCG) TABLET PO SCH (10:00)
[2019-05-23] MEDS ORDERED: LACTULOSE SYRUP 20 GM/30 ML UDCUP PO SCH (10:00)
[2019-05-23] MEDS ORDERED: GLIMEPIRIDE 4 MG TABLET PO SCH (10:00)
[2019-05-23 12:40] VITALS: BP 131/59
== END 2019-05-23 14:25 ==
LOC: ER 16:04 → EH 05-19 00:48 → INTOOBSV 05-19 00:48 → 4S 05-19 03:05 → 5 05-20 17:56
PROVIDERS: ADMIT Internal Medicine; ATTEND Internal Medicine
DX: R10.9 Unspecified abdominal pain (principal); K59.09 Other constipation; K95.09 Other complications of gastric band procedure; Y83.8 Other surgical procedures as the cause of abnormal reaction of the patient, or of later complication, without mention of misadventure at the time of the procedure; Z74.01 Bed confinement status; E66.01 Morbid (severe) obesity due to excess calories; F11.20 Opioid dependence, uncomplicated; E11.21 Type 2 diabetes mellitus with diabetic nephropathy; E11.22 Type 2 diabetes mellitus with diabetic chronic kidney disease; I13.0 Hypertensive heart and chronic kidney disease with heart failure and stage 1 through stage 4 chronic kidney disease, or unspecified chronic kidney disease; N18.9 Chronic kidney disease, unspecified; I50.33 Acute on chronic diastolic (congestive) heart failure; J45.909 Unspecified asthma, uncomplicated; M06.89 Other specified rheumatoid arthritis, multiple sites; M79.7 Fibromyalgia; R06.01 Orthopnea; G89.4 Chronic pain syndrome; N18.2 Chronic kidney disease, stage 2 (mild); E78.5 Hyperlipidemia, unspecified; F32.9 Major depressive disorder, single episode, unspecified; G47.30 Sleep apnea, unspecified; N31.2 Flaccid neuropathic bladder, not elsewhere classified; N39.0 Urinary tract infection, site not specified; K58.9 Irritable bowel syndrome, unspecified; K90.0 Celiac disease; M35.00 Sjogren syndrome, unspecified; L29.8 Other pruritus; Z79.899 Other long term (current) drug therapy; Z90.49 Acquired absence of other specified parts of digestive tract; Z90.710 Acquired absence of both cervix and uterus; Z68.43 Body mass index [BMI] 50.0-59.9, adult; Z98.890 Other specified postprocedural states
CPT/HCPCS: 93005; 96376; 99285; 96374; 96375; 86900; 86901; 36415 ×6; 87040; 87086; 86850; 82962 ×5; 82550; 83690; 83735 ×3; 85025 ×4; 85610; 85730; 80048 ×3; 80053 ×2; 81001; 84484 ×2; 74018; 74176; 74177; 93010; G0378 ×5; A9270 ×70; J3490 ×11; J1644; J1940; J2270; C9113 ×3; J2405 ×5; J7030; J1815; S0119; S0164

== ENCOUNTER 2019-08-27 15:37 | Emergency (ER) | payer MEDICARE, MEDICAID ==
[2019-08-27] MEDS ORDERED: LIDOCAINE 1% INJ-PF (10 MG/ML) 30 ML SDV INJ ONE (15:58)
[2019-08-27] MEDS ORDERED: DOXYCYCLINE HYCLATE 100 MG TABLET PO ONE (19:06)
--- NOTE | 2019-08-27 20:45 | ER Document Report ---
Entered by JASON TURNER SCRIBE 08/27/19 1558 Acting as scribe for:MONICA MARY MD ED General - General Chief Complaint: Abscess Stated Complaint: ABSCESS ON ARM Time Seen by Provider: 08/27/19 15:48 Primary Care Provider: NAYLA GEE MD [Primary Care Provider] - Follow up as needed Information source: Patient Notes: This 69-year-old female patient presents to the emergency department today with complaints of an abscess to her left posterior proximal arm. Patient states that she got the flu shot a few weeks ago and "it has felt funny in that area since then". Patient then adds that she developed pain and knew she had an abscess developing a few days ago. Patient denies being on any blood thinning medications. TRAVEL OUTSIDE OF THE [place] IN LAST 30 DAYS: No - Related Data Allergies/Adverse Reactions: ciprofloxacin [From Cipro] Allergy (Severe, Verified 08/27/19 16:02) Anaphylaxis Penicillins Allergy (Severe, Verified 08/27/19 16:02) Anaphylaxis adhesive tape [Adhesive Tape] Adverse Reaction (Severe, Verified 08/27/19 16:02) BLISTERS, SKIN BECOMES RAW indomethacin [From Indocin] Adverse Reaction (Severe, Verified 08/27/19 16:02) CAUSES SWELLING AND INFLAMMATION meperidine HCl [From Demerol] Adverse Reaction (Severe, Verified 08/27/19 16:02) Hallucinations Past Medical History - General Information source: Patient, [facility] Records - Social History Smoking Status: Never Smoker Cigarette use (# per day): No Chew tobacco use (# tins/day): No Frequency of alcohol use: None Drug Abuse: None Family History: Reviewed & Not Pertinent, Hypertension - Past Medical History Cardiac Medical History: Reports: Hx Hypercholesterolemia, Hx Hypertension, Hx Peripheral Vascular Disease, Hx Heart Murmur Pulmonary Medical History: Reports: Hx Asthma - severe,neb,inhaler, Hx Bro nchitis Endocrine Medical History: Reports: Hx Diabetes Mellitus Type 2, Hx Hypothyroidism Renal/ Medical History: Reports: Hx Ovarian Cysts GI Medical History: Reports: Hx Gastroesophageal Reflux Disease, Hx Hiatal Hernia, Hx Irritable Bowel Musculoskeletal Medical History: Reports Hx Arthritis - RA, Reports Hx Fibromyalgia Psychiatric Medical History: Reports: Hx Depression Traumatic Medical History: Reports: Hx Fractures Past Surgical History: Reports: Hx Cholecystectomy, Hx Gastric Bypass Surgery - Lap Band, post in stomach for lap band , Hx Hysterectomy, Hx Orthopedic Surgery - right hip x3, left knee x1 - Immunizations Hx Diphtheria, Pertussis, Tetanus Vaccination: Yes Hx Pneumococcal Vaccination: 10/11/12 Review of Systems - Review of Systems Constitutional: No symptoms reported EENT: No symptoms reported Cardiovascular: No symptoms reported Respiratory: No symptoms reported Gastrointestinal: No symptoms reported Genitourinary: No symptoms reported Female Genitourinary: No symptoms reported Musculoskeletal: No symptoms reported Skin: See HPI, Change in color, Other - abscess on the left arm Hematologic/Lymphatic: No symptoms reported Neurological/Psychological: No symptoms reported -: Yes All other systems reviewed and negative Physical Exam - Vital signs Vitals: Temp Pulse Resp BP Pulse Ox 97.6 F 74 20 145/59 H 93 08/27/19 16:01 08/27/19 16:01 08/27/19 16:01 08/27/19 16:01 08/27/19 16:01 - General General appearance: Appears well, Alert In distress: None - HEENT Head: Normocephalic, Atraumatic Eyes: Normal Pupils: PERRL Neck: Normal - Respiratory Respiratory status: No respiratory distress - Cardiovascular Rhythm: Regular - Abdominal Inspection: Morbidly Obese Bowel sounds: Normal Tenderness: Nontender - Back Back: Tender - Extremities General upper extremity: Other - Left posterior lateral upper arm has a tender red indurated area approximately 3 x 5 cm General lower extremity: Edema - Neurological Neuro grossly intact: Yes - Psychological Associated symptoms: Normal affect, Normal mood - Skin Skin Temperature: Warm Skin Moisture: Dry Skin Color: Normal Course - Vital Signs Vital signs: Temp Pulse Resp BP Pulse Ox 97.6 F 74 20 145/59 H 93 08/27/19 16:01 08/27/19 16:01 08/27/19 16:01 08/27/19 16:01 08/27/19 16:01 Procedures - Incision and Drainage Left Upper Arm Time completed: 19:10 Type: Complex Anesthetic type: 1% Lidocaine mL's of anesthetic: 6 Blade size: 11 I&D procedure: Shurclens applied, Iodoform packing placed Incision Method: Incision made by scalpel Amount/type of drainage: Large amount of bloody purulent drainage Notes: 08/27/19 19:16 The wound was probed with a mosquito clamp, it extends 2 to 3 cm deep and in all directions. Large amount of bloody purulent drainage was expressed. The wound was copiously irrigated with 50 mL's of normal saline and then packed with quarter inch iodoform gauze. Discharge - Discharge Clinical Impression: Abscess of left upper extremity Condition: Stable Disposition: HOME-SNF (ED ONLY) Additional Instructions: Abscess You have an abscess (boil). This a pus-forming infection, usually due to staph. Some boils may be left to drain on their own, but most require lancing. From the time the tender lump first appears, it may be three or four days before the abscess is ready to nilay. Local heat and rest help at this stage of treatment. An antibiotic may prevent spread of the infection. Once the abscess is opened, packing may be placed into it. This is done so pus is not sealed inside by premature closure of the cavity. The packing will be removed at your follow-up visit or you may be advised to remove it yourself at home. Sometimes this packing must be replaced a few times during healing. The wound will heal with surprisingly little scar. Depending on the size and location of an abscess, healing can take one to four weeks. You may shower and wash the area around the incision site two or three times a day. Antibiotics may be prescribed, but are usually not necessary after an abscess has been drained. If you develop fever, chilling, worsening pain, or increasing swelling in the area, call the doctor or return immediately. Take the doxycycline as prescribed. Return the emergency room tomorrow afternoon for wound check and wound care. Prescriptions: Doxycycline Hyclate 100 mg PO BID #14 tablet. Referrals: NAYLA GEE MD [Primary Care Provider] - Follow up as needed [place] Attestation: 08/27/19 19:10 I personally performed the services described in the documentation, reviewed and edited the documentation which was dictated to the scribe in my presence, and it accurately records my words and actions. I personally performed the services described in the documentation, reviewed and edited the documentation which was dictated to the scribe in my presence, and it accurately records my words and actions.
[2019-08-27 21:42] VITALS: BP 133/52
== END 2019-08-27 23:59 ==
LOC: ER 15:37
PROC: 0H9CXZZ Drainage of Left Upper Arm Skin, External Approach (ICD-10-PCS; principal; 2019-08-27)
DX: L02.414 Cutaneous abscess of left upper limb (principal); M79.602 Pain in left arm; I10 Essential (primary) hypertension; J45.909 Unspecified asthma, uncomplicated; E11.9 Type 2 diabetes mellitus without complications
CPT/HCPCS: 87070; 87205; 87075; 10060; A9270; J3490; 99284

== ENCOUNTER 2019-11-11 16:25 | Inpatient (IN) | payer MEDICARE, MEDICAID ==
[2019-11-11 17:05] LABS: ABSOLUTE BASOPHILS # (AUTO) 0.1 10^3/uL (0.0-0.2); ABSOLUTE NEUT (AUTO) 6.3 10^3/uL (1.7-8.2); BASOPHILS % (AUTO) 0.6 % (0-2); EOSINOPHILS % (AUTO) 0.4 % (0-6); HEMATOCRIT 40.7 % (36.0-47.0); HEMOGLOBIN 13.8 g/dL (12.0-15.5); LYMPHOCYTES % (AUTO) 11.9 % (13-45); MEAN CORPUSCULAR HEMOGLOBIN 31.7 pg (27.0-33.4); MEAN CORPUSCULAR HGB CONC 33.8 g/dL (32.0-36.0); MEAN CORPUSCULAR VOLUME 94 fl (80-97); MONOCYTES % (AUTO) 12.2 % (3-13); PLATELET COUNT 193 10^3/uL (150-450); RED BLOOD COUNT 4.34 10^6/uL (3.72-5.28); RED CELL DISTRIBUTION WIDTH 14.5 % (11.5-14.0); SEGMENTED NEUTROPHILS % (AUTO) 74.9 % (42-78); TOTAL CELLS COUNTED % (AUTO) 100 %; WHITE BLOOD COUNT 8.4 10^3/uL (4.0-10.5)
--- NOTE | 2019-11-11 17:21 | RADIOLOGY REPORT (SQ) ---
EXAM DESCRIPTION: CHEST SINGLE VIEW COMPLETED DATE/TIME: 11/11/2019 5:06 pm REASON FOR STUDY: sob COMPARISON: Chest radiographs 09/30/2018 EXAM PARAMETERS: NUMBER OF VIEWS: One view. TECHNIQUE: Single frontal radiographic view of the chest acquired. RADIATION DOSE: NA LIMITATIONS: None. FINDINGS: LUNGS AND PLEURA: No opacities, masses or pneumothorax. No pleural effusion. Unchanged ri ght lateral chest wall pleural thickening. MEDIASTINUM AND HILAR STRUCTURES: Unchanged contours. HEART AND VASCULAR STRUCTURES: Unchanged cardiac prominence. Normal vasculature. BONES: No acute findings. HARDWARE: None in the chest. OTHER: No other significant finding. IMPRESSION: NO ACUTE RADIOGRAPHIC FINDING IN THE CHEST. TECHNICAL DOCUMENTATION: JOB ID: [id number] [employer]- All Rights Reserved Reading location - IP/workstation name: CONSULTING PROJECT [email or web address]
[2019-11-11 17:23] LABS: ALBUMIN 3.8 g/dL (3.5-5.0); ALKALINE PHOSPHATASE 92 U/L (38-126); ANION GAP 12 (5-19); ASPARTATE AMINO TRANSFERASE 35 U/L (14-36); BILIRUBIN,DIRECT 0.2 mg/dL (0.0-0.4); BILIRUBIN,TOTAL 0.7 mg/dL (0.2-1.3); BLOOD UREA NITROGEN 36 mg/dL (7-20); CARBON DIOXIDE 29 mmol/L (22-30); CHLORIDE 97 mmol/L (98-107); CREATINE KINASE 130 U/L (30-135); GLUCOSE 143 mg/dL (75-110); TOTAL PROTEIN 7.3 g/dL (6.3-8.2)
[2019-11-11 17:31] LABS: CREATINE KINASE MB 1.23 ng/mL (<4.55); NT PRO BNP 468 pg/mL (<125)
[2019-11-11 17:34] LABS: TROPONIN I < 0.012 ng/mL
--- NOTE | 2019-11-11 20:20 | ER Document Report ---
ED General - General Chief Complaint: Shortness Of Breath Stated Complaint: TROUBLE BREATHING Time Seen by Provider: 11/11/19 20:12 Notes: Patient is a 69-year-old female that comes emergency department for chief complaint of shortness of breath and cough for the past 2 days. She denies chest pain, she states she felt like she was feverish earlier today, she denies vomiting, she denies any other symptoms. Patient comes from [facility], she was given a DuoNeb in route by EMS. Patient states that she does have a history of asthma, possibly COPD, she is a former smoker. She wears oxygen at night but not otherwise. She states she has had the influenza vaccine. Past medical history includes CHF, chronic kidney disease, hypertension, type 2 diabetes, peripheral vascular disease, chronic pain management on oxycodone. She also has a suprapubic catheter and has had a gastric bypass. TRAVEL OUTSIDE OF THE [place] IN LAST 30 DAYS: No - Related Data Allergies/Adverse Reactions: ciprofloxacin [From Cipro] Allergy (Severe, Verified 08/27/19 16:02) Anaphylaxis Penicillins Allergy (Severe, Verified 08/27/19 16:02) Anaphylaxis adhesive tape [Adhesive Tape] Adverse Reaction (Severe, Verified 08/27/19 16:02) BLISTERS, SKIN BECOMES RAW indomethacin [From Indocin] Adverse Reaction (Severe, Verified 08/27/19 16:02) CAUSES SWELLING AND INFLAMMATION meperidine HCl [From Demerol] Adverse Reaction (Severe, Verified 08/27/19 16:02) Hallucinations Past Medical History - General Information source: Patient - Social History Smoking Status: Never Smoker Frequency of alcohol use: None Drug Abuse: None Lives with: Family Family History: Reviewed & Not Pertinent, Hypertension Patient has suicidal ideation: No Patient has homicidal ideation: No - Past Medical History Cardiac Medical History: Reports: Hx Hypercholesterolemia, Hx Hypertension, Hx Peripheral Vascular Disease, Hx Heart Murmur Denies: Hx Heart Attack Pulmonary Medical History: Reports: Hx Asthma - severe,neb,inhaler, Hx Bronchitis Denies: Hx COPD, Hx Pneumonia, Hx Respiratory Failure, Hx Sleep Apnea, Hx Tuberculosis Neurological Medical History: Denies: Hx Cerebrovascular Accident, Hx Seizures, Hx Parkinson's Disease Endocrine Medical History: Reports: Hx Diabetes Mellitus Type 2, Hx Hypothyroidism Renal/ Medical History: Reports: Hx Ovarian Cysts. Denies: Hx Peritoneal Dialysis GI Medical History: Reports: Hx Gastroesophageal Reflux Disease, Hx Hiatal Hernia, Hx Irritable Bowel. Denies: Hx Pancreatitis Musculoskeletal Medical History: Reports Hx Arthritis - RA, Reports Hx Fibromyalgia, Denies Hx Systemic Lupus Erythematosus Psychiatric Medical History: Reports: Hx Depression Traumatic Medical History: Reports: Hx Fractures Past Surgical History: Reports: Hx Cholecystectomy, Hx Gastric Bypass Surgery - Lap Band, post in stomach for lap band , Hx Hysterectomy, Hx Orthopedic Surgery - right hip x3, left knee x1, Other - LAP-BAND procedures - Immunizations Hx Diphtheria, Pertussis, Tetanus Vaccination: Yes Hx Pneumococcal Vaccination: 10/11/12 Review of Systems - Review of Systems Constitutional: No symptoms reported EENT: No symptoms reported Cardiovascular: No symptoms reported Respiratory: See HPI Gastrointestinal: No symptoms reported Genitourinary: No symptoms reported Female Genitourinary: No symptoms reported Musculoskeletal: No symptoms reported Skin: No symptoms reported Hematologic/Lymphatic: No symptoms reported Neurological/Psychological: No symptoms reported Physical Exam - Vital signs Vitals: Temp Resp Pulse Ox 98.4 F 19 93 11/11/19 16:33 11/11/19 16:33 11/11/19 16:33 - Notes Notes: GENERAL: Alert, interacts well. No acute distress. HEAD: Normocephalic, atraumatic. EYES: Pupils equal, round, and reactive to light. Extraocular movements intact. ENT: Oral mucosa moist, tongue midline. Oropharynx unremarkable. Airway patent. Nares patent, no nasal septal hematoma, TM's intact. NECK: Full range of motion. Supple. Trachea midline. LUNGS: Scattered coarse breath sounds and expiratory wheezes, borderline t achypnea, frequent congested cough. No rales or rhonchi heard. HEART: Regular rate and rhythm. No murmur ABDOMEN: Soft and nontender. There appears to be a an umbilical hernia but the area is also nontender. Bowel sounds present, unremarkable otherwise. GENITOURINARY: Suprapubic catheter in place. EXTREMITIES: Hematoma noted over the right mid tibia with surrounding tenderness. Normal distal neurovascular exam. Unremarkable otherwise. BACK: no cervical, thoracic, lumbar midline tenderness. No saddle anesthesia, normal distal neurovascular exam. Moves all extremities in full range of motion. NEUROLOGICAL: Alert and oriented x3. Normal speech. Cranial nerves II through XII grossly intact. PSYCH: Normal affect, normal mood. SKIN: Chronic skin changes to both lower extremities, unremarkable otherwise Course - Re-evaluation Re-evalutation: Patient has expiratory wheezing, chest congestion, congested cough on exam. She speaks in full sentences, she is not in distress. On my initial evaluation she was sleeping on oxygen at 2 L nasal cannula at 93% on room air, she increased oxygen saturation to 97% when she aroused and began speaking to me. She reports compliance with her medications. CBC unremarkable, chemistry nonspecific, troponin not elevated. Chest x-ray unremarkable. However on reevaluation patient has slightly more tachypnea, increased wheezing, more difficulty breathing and concentrating. She appears to be worsening acutely. This was despite multiple duo nebs and Solu-Medrol. Arterial blood gas was obtained, this shows hypoxia in the 60s, retention of CO2 in the 50s. Patient was placed on BiPAP. I discussed with Dr. Sadler. I discussed with patient and family. Patient will require admission for upper respiratory infection, asthma exacerbation, hypoxia. They state appreciation and agreement. I spoke with Dr. Toscano, on-call for Dr. Brown who is patient's primary provider, patient accepted to telemetry full admission. - Vital Signs Vital signs: Temp Pulse Resp BP Pulse Ox 97.6 F 80 20 126/62 H 94 11/12/19 03:51 11/12/19 03:51 11/12/19 03:51 11/12/19 03:51 11/12/19 03:51 - Laboratory Result Diagrams: 11/11/19 16:42 11/12/19 01:17 Laboratory results interpreted by me: 11/11/19 11/11/19 11/11/19 16:42 16:42 16:42 RDW 14.5 H Lymph % (Auto) 11.9 L Carbonic Acid ABG pCO2 ABG pO2 ABG HCO3 ABG Total CO2 ABG O2 Saturation Chloride 97 L BUN 36 H Est GFR (MDRD) Non-Af 54 L Glucose 143 H NT-Pro-B Natriuret Pep 468 H Urine Protein Urine Blood Urine Nitrite Ur Leukocyte Esterase 11/11/19 11/12/19 23:07 00:42 RDW Lymph % (Auto) Carbonic Acid 1.61 H ABG pCO2 53.4 H ABG pO2 68.2 L ABG HCO3 31.0 H ABG Total CO2 32.6 H ABG O2 Saturation 93.0 L Chloride BUN Est GFR (MDRD) Non-Af Glucose NT-Pro-B Natriuret Pep Urine Protein 100 H Urine Blood SMALL H Urine Nitrite POSITIVE H Ur Leukocyte Esterase LARGE H - EKG Interpretation by Me Additional EKG results interpreted by me: EKG shows sinus rhythm at a rate of 97, large metal artifact is present throughout, no overt T wave or ST segment changes in consecutive leads, QTC of 417, left axis deviation. Discharge - Discharge Clinical Impression: Hypoxia, Wheezing, Cough Upper respiratory infection Qualifiers: URI type: unspecified URI Qualified Code(s): J06.9 - Acute upper respiratory infection, unspecified Condition: Stable Disposition: ADMITTED INPATIENT Admitting Provider: Everton Brown Unit Admitted: Telemetry
[2019-11-11] MEDS ORDERED: IPRATROPIUM/ALBUTEROL 0.5-2.5 MG/3 ML AMPUL NEB ONE ×2 (20:27→23:47)
[2019-11-11] MEDS ORDERED: METHYLPREDNISOLONE INJ 125 MG/2 ML SDV IV ONE (20:27)
--- NOTE | 2019-11-11 23:16 | RADIOLOGY REPORT (SQ) ---
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 HISTORY: 69-year-old patient with right lower extremity pain . FINDINGS: There are no findings to suggest an acute fracture or subluxation within the right tibia or fibula. The visualized soft tissues appear grossly unremarkable. There is reticulation within the subcutaneous soft tissues suggesting underlying edema or cellulitis. There is moderate tricompartmental joint space narrowing of the right knee with marginal osteophyte formation. IMPRESSION: There are no findings to suggest an acute fracture or subluxation within the right tibia or fibula.
[2019-11-11 23:19] LABS: ARTERIAL BLOOD BASE EXCESS 4.6 mmol/L; ARTERIAL BLOOD H2CO3 1.61 mmol/L (1.05-1.35); ARTERIAL BLOOD PCO2 53.4 mmHg (35-45); ARTERIAL BLOOD PH 7.38 (7.35-7.45); ARTERIAL BLOOD PO2 68.2 mmHg (80-100); ARTERIAL BLOOD TOTAL CO2 32.6 mmol/L (21-25)
[2019-11-11 23:21] LABS: ARTERIAL BLOOD FIO2 2L
--- NOTE | 2019-11-11 23:47 | EKG REPORT ---
SEVERITY:- ABNORMAL ECG - PROBABLE RHYTHM LEFT AXIS DEVIATION CONSIDER ANTERIOR INFARCT : Confirmed by: Yani Rolon 11-Nov-2019 23:46:33
[2019-11-12] MEDS ORDERED: ACETAMINOPHEN 325 MG TABLET PO PRN (00:47)
[2019-11-12] MEDS ORDERED: DEXTROSE 40% GEL 15 GM TUBE PO PRN ×2 (00:50)
[2019-11-12] MEDS ORDERED: GLUCAGON,HUMAN RECOMB 1 MG INJ IM PRN (00:50)
[2019-11-12] MEDS ORDERED: DEXTROSE 50%-WATER 25 GM/50 ML DISP.SYRIN IV PRN ×2 (00:50)
[2019-11-12 01:08] LABS: APPEARANCE,URINE CLOUDY; BILIRUBIN,URINE NEGATIVE (NEGATIVE); GLUCOSE, URINE NEGATIVE (NEGATIVE); KETONES,URINE NEGATIVE (NEGATIVE); LEUKOCYTE ESTERASE,URINE LARGE (NEGATIVE); NITRITE,URINE POSITIVE (NEGATIVE); PROTEIN,URINE 100 mg/dL (NEGATIVE); URINE SPECIFIC GRAVITY 1.014; UROBILINOGEN,URINE NEGATIVE mg/dL (<2.0)
[2019-11-12 01:09] LABS: COLOR,URINE DARK YELLOW
[2019-11-12 01:43] LABS: ANION GAP 10 (5-19); BLOOD UREA NITROGEN 38 mg/dL (7-20); CALCIUM 8.6 mg/dL (8.4-10.2); CARBON DIOXIDE 29 mmol/L (22-30); CHLORIDE 97 mmol/L (98-107); GLUCOSE 298 mg/dL (75-110)
[2019-11-12] MEDS: IPRATROPIUM/ALBUTEROL 0.5-2.5 MG/3 ML AMPUL NEB SCH ×3 (08:06→20:55)
[2019-11-12] MEDS: INSULIN LISPRO 100 UNIT/ML 3 ML VIAL SUBCUT SCH ×4 (08:34→23:37)
[2019-11-12 10:40] LABS: ARTERIAL BLOOD BASE EXCESS 1.8 mmol/L; ARTERIAL BLOOD FIO2 2.5L; ARTERIAL BLOOD H2CO3 1.52 mmol/L (1.05-1.35); ARTERIAL BLOOD HCO3 28.1 mmol/L (20-24); ARTERIAL BLOOD O2 SATURATION 87.7 % (94-98); ARTERIAL BLOOD PCO2 50.5 mmHg (35-45); ARTERIAL BLOOD PH 7.36 (7.35-7.45); ARTERIAL BLOOD PO2 55.9 mmHg (80-100); ARTERIAL BLOOD TOTAL CO2 29.6 mmol/L (21-25)
[2019-11-12] MEDS: FUROSEMIDE INJ/PF 20 MG/2 ML SDV IV SCH ×2 (10:57→23:37)
[2019-11-12] MEDS: ENOXAPARIN SODIUM INJ 40 MG/0.4 ML DISP.SYRIN SUBCUT SCH (10:57)
[2019-11-12 12:02] LABS: CREATINE KINASE MB 1.29 ng/mL (<4.55)
[2019-11-12 12:03] LABS: TROPONIN I < 0.012 ng/mL
--- NOTE | 2019-11-12 12:11 | PDOC H&P ---
History of Present Illness Admission Date/PCP: 11/12/19 00:53 NAYLA GEE MD Patient complains of: Shortness of the breath History of Present Illness: NETTA RICO is a 69 year old female Is a 69-year-old female patient of Dr. Gee currently lives in the [facility] have a chest x-ray done suggest the mild congestive heart failure in the nursing facility and patient was short of breath and decided to bring the patient in the hospital. Emergency department patient was complaining some short of breath cough congestions and patient also PCO2 level is elevated Patient's denied any chest pain His other concerns about the complaining of right leg pain which patient claimed that the CLERK GUIDE was trying to help her for her motor wheelchair and patient injured that wheelchair patient have a x-ray of the tibia-fibula was done was negative Patient have a significant history of the COPD asthma history of a former smoker patients probably require oxygen at night and I think patient have a combination of mild heart failure with COPD I decided to admit in the hospital for that and further work-up Patient have a history of the chronic urinary tract infections history of the suprapubic catheter and a history of the gastric bypass and a history of the chronic pain currently see a pain management Past Medical History Cardiac Medical History: Reports: Hyperlipidema, Hypertension, Peripheral Vasc ular Disease, Heart Murmur Denies: Myocardial Infarction Pulmonary Medical History: Reports: Asthma - severe,neb,inhaler, Bronchitis Denies: Chronic Obstructive Pulmonary Disease (COPD), Pneumonia, Respiratory Failure, Sleep Apnea, Tuberculosis Neurological Medical History: Denies: Seizures Endocrine Medical History: Reports: Diabetes Mellitus Type 2, Hypothyroidism GI Medical History: Reports: Gastroesophageal Reflux Disease, Hiatal Hernia Musculoskeltal Medical History: Reports: Arthritis - RA, Fibromyalgia Psychiatric Medical History: Reports: Depression Hematology: Denies: Anemia, Hemophilia, Sickle Cell Disease Past Surgical History Past Surgical History: Reports: Cholecystectomy, Gastric Bypass Surgery - Lap Band, post in stomach for lap band , Hysterectomy, Orthopedic Surgery - right hip x3, left knee x1, Other - LAP-BAND procedures Denies: Amputation Social History Information Source: Patient Lives with: Family Smoking Status: Never Smoker Electronic Cigarette use?: No Frequency of Alcohol Use: None Hx Recreational Drug Use: No Drugs: None Hx Prescription Drug Abuse: No - Advance Directive Resuscitation Status: Full Code Family History Family History: Reviewed & Not Pertinent, Hypertension Parental Family History Reviewed: Yes Children Family History Reviewed: Unknown Sibling(s) Family History Reviewed.: Unknown Medication/Allergy Home Medications: Allopurinol [Zyloprim 300 mg Tablet] 300 mg PO DAILY 11/12/19 Amlodipine Besylate [Norvasc 5 mg Tablet] 5 mg PO DAILY 11/12/19 Baclofen [Baclofen 10 mg Tablet] 10 mg PO QID 11/12/19 Benzocaine/Menthol [Chloraseptic Sore Throat Lozenge] 1 lozenge PO Q1HP PRN 11/12/19 Betamethasone Dipropionate [Betamethasone Diprop Augmented] 1 applic TOP BID 11/12/19 Bisacodyl [Dulcolax 5 mg Tablet] 5 mg PO DAILYP PRN 11/12/19 Budesonide/Formoterol Fumarate [Symbicort HFA 160-4.5 mcg Inhaler 6 gm] 2 puff IH BID 11/12/19 Calcium Carbonate [Calcium] 600 mg PO DAILY 11/12/19 Carboxymethylcellulose Sodium [Refresh Celluvisc Drops] 1 drop OU QHS 11/12/19 Carboxymethylcellulose Sodium [Refresh Tears] 1 drop OU QID 11/12/19 Cetirizine HCl [Zyrtec 10 mg Tablet] 10 mg PO DAILYP PRN 11/12/19 Cholecalciferol (Vitamin D3) [Vitamin D3 1000 Unit Tablet] 4,000 unit PO DAILY 11/12/19 Cranberry Fruit Extract [Cranberry 250 mg Capsule] 250 mg PO DAILY 11/12/19 Cyclosporine 0.05% Oph Emulsio [Restasis 0.05% Oph Emulsion Pf 0.4 ml] 1 drop OU Q12 11/12/19 Diphenhydramine HCl [Benadryl 25 mg Capsule] 25 mg PO Q8HP PRN 11/12/19 Furosemide [Lasix 40 mg Tablet] 40 mg PO BID 11/12/19 Gabapentin Enacarbil [Horizant] 600 mg PO QHS 11/12/19 Glimepiride [Amaryl] 2 mg PO DAILY 11/12/19 Hydroxychloroquine Sulfate [Plaquenil 200 mg Tablet] 200 mg PO Q12 11/12/19 Insulin Glargine,Hum.rec.anlog [Lantus Insulin 100 Unit/1 ml 10 ml] 5 units SQ QHS 11/12/19 Insulin Lispro [Humalog Insulin 100 Unit/1 ml 3 ml Vial] 0 unit SUBCUT .SLD SCALE 11/12/19 Ipratropium/Albuterol Sulfate [Duoneb 3 ml Ampul] 3 ml NEB RTQ6HP PRN 11/12/19 Levothyroxine Sodium [Synthroid 0.088 mg Tablet] 0.088 mg PO Q6AM 11/12/19 Menthol/Camphor [Sarna Original 0.5%-0.5% Lotn] 1 applic TOP QIDP PRN 11/12/19 Metoprolol Succinate [Toprol Xl 25 mg Tab.sr] 25 mg PO QHS 11/12/19 Mineral Oil/Hydrophil Petrolat [Aquaphor Healing Ointment] 1 applic TOP BID 11/12/19 Mirabegron [Myrbetriq] 25 mg PO DAILYP PRN 11/12/19 Montelukast Sodium [Singulair 10 mg Tablet] 10 mg PO QHS 11/12/19 Naloxegol Oxalate [Movantik 25 mg Tablet] 25 mg PO DAILY 11/12/19 Ondansetron [Zofran Odt 4 mg Tablet] 4 mg PO Q6HP PRN 11/12/19 Oxycodone HCl [Oxy-Ir 5 mg Tablet] 10 mg PO BIDP PRN 11/12/19 Oxycodone HCl [Oxycodone HCl ER] 30 mg PO Q8 11/12/19 Pantoprazole Sodium [Protonix [address] Tablet] 40 mg PO Q12 11/12/19 Pimecrolimus 1 applic TOP BID 11/12/19 Polyethylene Glycol 3350 [Miralax Powder 17 gm/Packet] 1 packet PO BID 11/12/19 Polyethylene Glycol 3350 [Miralax Powder 17 gm/Packet] 1 packet PO DAILYP PRN 11/12/19 Polyvinyl Alcohol [Liquitears 1.4% Ophth Soln 15 ml] 1 drop OU QIDP PRN 11/12/19 Potassium Chloride [Klor-Con 10 Meq Tablet ER] 10 meq PO Q12 11/12/19 Pregabalin 150 mg PO Q8 11/12/19 Sennosides/Docusate Sodium [Senna Plus 8.6-50 mg Tablet] 1 tab PO BID 02/02/20 Sodium Chloride [P[place]a Nasal Circle 44 ml Bottle] 1 spray NASL DAILYP PRN 11/12/19 Allergies/Adverse Reactions: ciprofloxacin [From Cipro] Allergy (Severe, Verified 08/27/19 16:02) Anaphylaxis Penicillins Allergy (Severe, Verified 08/27/19 16:02) Anaphylaxis adhesive tape [Adhesive Tape] Adverse Reaction (Severe, Verified 08/27/19 16:02) BLISTERS, SKIN BECOMES RAW indomethacin [From Indocin] Adverse Reaction (Severe, Verified 08/27/19 16:02) CAUSES SWELLING AND INFLAMMATION meperidine HCl [From Demerol] Adverse Reaction (Severe, Verified 08/27/19 16:02) Hallucinations Review of Systems Constitutional: ABSENT: chills, fever(s), headache(s), weight gain, weight loss Eyes: ABSENT: visual disturbances Ears: ABSENT: hearing changes Cardiovascular: PRESENT: dyspnea on exertion. ABSENT: chest pain, edema, orthropnea, palpitations Respiratory: PRESENT: cough. ABSENT: hemoptysis Gastrointestinal: ABSENT: abdominal pain, constipation, diarrhea, hematemesis, hematochezia, nausea, vomiting Genitourinary: ABSENT: dysuria, hematuria Musculoskeletal: ABSENT: joint swelling Integumentary: ABSENT: rash, wounds Neurological: ABSENT: abnormal gait, abnormal speech, confusion, dizziness, focal weakness, syncope Psychiatric: ABSENT: anxiety, depression, homidical ideation, suicidal ideation Endocrine: ABSENT: cold intolerance, heat intolerance, menstrual abnormalities, polydipsia, polyuria Hematologic/Lymphatic: ABSENT: easy bleeding, easy bruising, lymphadenopathy Physical Exam Vital Signs: Temp Pulse Resp BP Pulse Ox 97.6 F 65 16 114/55 L 95 11/12/19 05:03 11/12/19 08:24 11/12/19 08:24 11/12/19 08:24 11/12/19 08:24 Intake & Output 11/11/19 11/12/19 11/13/19 06:59 06:59 06:59 Intake Total 260 Output Total 425 Balance -165 Weight 164.3 kg General appearance: PRESENT: no acute distress, obese, well-developed, well- nourished Head exam: PRESENT: atraumatic, normocephalic Eye exam: PRESENT: conjunctiva pink, EOMI, PERRLA. ABSENT: scleral icterus Ear exam: PRESENT: normal external ear exam Mouth exam: PRESENT: moist, tongue midline Neck exam: PRESENT: full ROM. ABSENT: carotid bruit, JVD, lymphadenopathy, thyromegaly Respiratory exam: PRESENT: decreased breath sounds Cardiovascular exam: PRESENT: RRR. ABSENT: diastolic murmur, rubs, systolic murmur Pulses: PRESENT: normal dorsalis pedis pul, +2 pedal pulses bilateral Vascular exam: PRESENT: normal capillary refill GI/Abdominal exam: PRESENT: normal bowel sounds, soft. ABSENT: distended, guarding, mass, organolmegaly, rebound, tenderness Rectal exam: PRESENT: deferred Extremities exam: PRESENT: pedal edema Additional comments: rt lower extremity bruises present some tenderness Neurological exam: PRESENT: alert, awake, oriented to person, oriented to place, oriented to time, oriented to situation, CN II-XII grossly intact. ABSENT: motor sensory deficit Psychiatric exam: PRESENT: appropriate affect, normal mood. ABSENT: homicidal ideation, suicidal ideation Skin exam: PRESENT: dry, intact, warm. ABSENT: cyanosis, rash Results Laboratory Results: 11/11/19 16:42 11/12/19 01:17 11/11/19 11/11/19 11/11/19 16:42 16:42 23:07 WBC 8.4 RBC 4.34 Hgb 13.8 Hct 40.7 MCV 94 MCH 31.7 MCHC 33.8 RDW 14.5 H Plt Count 193 Seg Neutrophils % 74.9 Carbonic Acid 1.61 H HCO3/H2CO3 Ratio 19:1 ABG pH 7.38 ABG pCO2 53.4 H ABG pO2 68.2 L ABG HCO3 31.0 H ABG O2 Saturation 93.0 L ABG Base Excess 4.6 FiO2 2L Sodium 137.6 Potassium 5.0 Chloride 97 L Carbon Dioxide 29 Anion Gap 12 BUN 36 H Creatinine 1.01 Est GFR ( Amer) > 60 Glucose 143 H Calcium 9.0 Total Bilirubin 0.7 AST 35 Alkaline Phosphatase 92 Total Protein 7.3 Albumin 3.8 Urine Color Urine Appearance Urine pH Ur Specific [place] Urine Protein Urine Glucose (UA) Urine Ketones Urine Blood Urine Nitrite Ur Leukocyte Esterase Urine WBC (Auto) Urine RBC (Auto) 11/12/19 11/12/19 11/12/19 00:42 01:17 10:15 WBC RBC Hgb Hct MCV MCH MCHC RDW Plt Count Seg Neutrophils % Carbonic Acid 1.52 H HCO3/H2CO3 Ratio 18:1 ABG pH 7.36 ABG pCO2 50.5 H ABG pO2 55.9 L ABG HCO3 28.1 H ABG O2 Saturation 87.7 L ABG Base Excess 1.8 FiO2 2.5L Sodium 136.1 L Potassium 5.0 Chloride 97 L Carbon Dioxide 29 Anion Gap 10 BUN 38 H Creatinine 1.09 Est GFR ( Amer) > 60 Glucose 298 H Calcium 8.6 Total Bilirubin AST Alkaline Phosphatase Total Protein Albumin Urine Color DARK YELLOW Urine Appearance CLOUDY Urine pH 7.0 Ur Specific [place] 1.014 Urine Protein 100 H Urine Glucose (UA) NEGATIVE Urine Ketones NEGATIVE Urine Blood SMALL H Urine Nitrite POSITIVE H Ur Leukocyte Esterase LARGE H Urine WBC (Auto) >182 Urine RBC (Auto) 37 11/11/19 11/11/19 11/12/19 16:42 16:42 10:45 Creatine Kinase 130 78 CK-MB (CK-2) 1.23 Troponin I < 0.012 NT-Pro-B Natriuret Pep 468 H Impressions: Chest X-Ray 11/11/19 16:40 IMPRESSION: NO ACUTE RADIOGRAPHIC FINDING IN THE CHEST. Tibia/Fibula X-Ray 11/11/19 21:52 IMPRESSION: There are no findings to suggest an acute fracture or subluxation within the right tibia or fibula. Assessment & Plan - Diagnosis (1) Cough Is this a current diagnosis for this admission?: Yes Plan: Most likely from the COPD we will start the nebulizer treatment and Solu-Medrol (2) Hypoxia Is this a current diagnosis for this admission?: Yes Plan: Due to the combination of the COPD and CHF put the patient on oxygen's patient is denied wearing any CPAP in the past (3) Acute diastolic (congestive) heart failure Is this a current diagnosis for this admission?: Yes Plan: Start on IV Lasix (4) CKD stage 2 due to type 2 diabetes mellitus Plan: Currently all stable (5) Chronic pain syndrome Plan: Current pain medications (6) Hyperlipidemia Qualifiers: Is this a current diagnosis for this admission?: Yes (7) Hypertension Qualifiers: Is this a current diagnosis for this admission?: Yes (8) Morbid obesity Is this a current diagnosis for this admission?: Yes (9) Rheumatoid arthritis Qualifiers: Rheumatoid arthritis location: multiple sites Is this a current diagnosis for this admission?: Yes (10) Right leg pain Is this a current diagnosis for this admission?: Yes Plan: X-rays all negative We will get the ultrasound to rule out any DVT (11) Neurogenic bladder Is this a current diagnosis for this admission?: Yes Plan: Suprapubic catheter (12) Hypercapnic respiratory failure Qualifiers: Chronicity: acute on chronic Qualified Code(s): J96.22 - Acute and chronic respiratory failure with hypercapnia Is this a current diagnosis for this admission?: Yes Plan: The patient on a BiPAP - Time Time Spent: 30 to 50 Minutes Medications reviewed and adjusted accordingly: Yes Anticipated discharge: SNF Within: Other - Inpatient Certification Based on my medical assessment, after consideration of the patient's comorbidities, presenting symptoms, or acuity I expect that the services needed warrant INPATIENT care.: Yes I certify that my determination is in accordance with my understanding of [facility]'s requirements for reasonable and necessary INPATIENT services [42 CFR 412.3e].: Yes Medical Necessity: Failure to Improve With Outpatient Therapy, Significant Comorbidiites Make Outpatient Treatment Too Risky, Need Close Monitoring Due to Risk of Patient Decompensation, Need for Pain Control, Other Post Hospital Care: D/C Forms Builder Documentation - Plan Summary Plan Summary: Admit the patient in the hospital see MD orders
[2019-11-12] MEDS ORDERED: BISACODYL 5 MG TABEC PO PRN (12:33)
[2019-11-12] MEDS ORDERED: BENZOCAINE/MENTHOL SORE THROAT LOZENGE PO PRN (12:33)
[2019-11-12] MEDS ORDERED: POLYETHYLENE GLYCOL 3350 POWDER 17 GM/1 PACKET PO PRN (12:33)
[2019-11-12] MEDS ORDERED: DIPHENHYDRAMINE HCL 25 MG CAPSULE PO PRN (12:33)
[2019-11-12] MEDS ORDERED: (PENDING PHARMACY ID) (Mirabegron [Myrbetriq] 25 MG) PO PRN (12:33)
[2019-11-12] MEDS ORDERED: MENTHOL TOP PRN (12:33)
[2019-11-12] MEDS ORDERED: IPRATROPIUM/ALBUTEROL 0.5-2.5 MG/3 ML AMPUL NEB PRN (12:33)
[2019-11-12] MEDS ORDERED: CAMPHOR TOP PRN (12:33)
[2019-11-12] MEDS: BACLOFEN 10 MG TABLET PO SCH ×3 (13:06→23:27)
[2019-11-12] MEDS: METHYLPREDNISOLONE INJ 40 MG/1 ML SDV IV SCH ×2 (13:06→23:36)
[2019-11-12] MEDS ORDERED: OXYCODONE HCL 30 MG PO SCH (14:00)
[2019-11-12] MEDS ORDERED: (PENDING PHARMACY ID) (Carboxymethylcellulose Sodium [Refresh Tears] 1 DROP) OU SCH (14:00)
[2019-11-12] MEDS: OXYCODONE HCL SR 10 MG TABLET PO SCH ×2 (14:16→23:26)
[2019-11-12] MEDS: CARBOXYMETHYLCELLULOSE SOD 0.5% 0.4 ML DROPERETTE OU SCH ×4 (14:17→23:41)
[2019-11-12] MEDS: GABAPENTIN 100 MG CAPSULE PO SCH ×2 (14:17→23:25)
[2019-11-12 16:14] LABS: CREATINE KINASE MB 1.58 ng/mL (<4.55)
[2019-11-12 16:18] LABS: TROPONIN I < 0.012 ng/mL
[2019-11-12] MEDS: POLYETHYLENE GLYCOL 3350 POWDER 17 GM/1 PACKET PO SCH (17:00)
[2019-11-12] MEDS: POLYVINYL ALCOHOL 1.4% OPH SOLN 15 ML OU PRN (17:00)
[2019-11-12] MEDS: PANTOT AC/MIN OIL/PET HY-PHL OINT 50 GM TOP SCH (17:00)
[2019-11-12] MEDS: SENNOSIDES/DOCUSATE 8.6-50 MG 1 EACH TABLET PO SCH (17:03)
[2019-11-12] MEDS ORDERED: CYCLOSPORINE 0.05% OPH EMULSIO 0.4 ML DROPERETTE ONE (17:23)
[2019-11-12] MEDS ORDERED: [UNRECOGNIZED DRUG - OTHER] TOP SCH (18:00)
[2019-11-12] MEDS ORDERED: PIMECROLIMUS TOP SCH (18:00)
[2019-11-12] MEDS ORDERED: BETAMETHASONE DIPROPIONATE TOP SCH (18:00)
--- NOTE | 2019-11-12 18:12 | RADIOLOGY REPORT (SQ) ---
EXAM DESCRIPTION: VENOUS UNILATERAL LOWER COMPLETED DATE/TIME: 11/12/2019 6:01 pm REASON FOR STUDY: R/O Clot COMPARISON: None. TECHNIQUE: Dynamic and static gambino scale and color images acquired of the right leg venous system. S elected spectral images acquired with additional compression and augmentation maneuvers. The contrala teral common femoral vein and saphenofemoral junction were also imaged. Images stored on PACS. LIMITATIONS: Limited imaging because of body habitus. Nonvisualization of the common femoral vein, distal femoral vein, and peroneal veins. FINDINGS: COMMON FEMORAL: Normal phasicity, compression and augmentation. No visualized echogenic ma terial on gambino scale. No defects on color images. FEMORAL: Normal compression and augmentation. No visualized echogenic material on gambino scale. No defe cts on color images. POPLITEAL: Normal compression, augmentation. No visualized echogenic material on gambino scale. No defec ts on color images. CALF VESSELS: Normal compression, augmentation. No visualized echogenic material on gambino scale. No de fects on color images. GSV and SSV: Normal compression, augmentation. No visualized echogenic material on gambino scale. No def ects on color images. ANY DEEP VENOUS INSUFFICIENCY: Not evaluated. ANY EVIDENCE OF POPLITEAL CYST: No. OTHER: No other significant finding. CONTRALATERAL COMMON FEMORAL VEIN AND SAPHENOFEMORAL JUNCTION: Normal phasicity, compression and augmentation. No visualized echogenic material on gambino scale. No de fects on color images. IMPRESSION: Negative for DVT or SVT, as imaged. TECHNICAL DOCUMENTATION: JOB ID: [id number] [employer]- All Rights Reserved Reading location - IP/workstation name: [email or web address]
[2019-11-12] MEDS: OXYCODONE HCL IR 5 MG TABLET PO PRN (18:16)
--- NOTE | 2019-11-12 19:30 | PDOC CONSULTATION ---
Consultation Consult Date: 11/12/19 Attending physician:: VALENTINA TOSCANO Provider Consulted: ADRIAN KAN Consult reason:: Shortness of breath and pedal edema History of Present Illness Admission Date/PCP: 11/12/19 00:53 NAYLA GEE MD Patient complains of: Shortness of breath and pedal edema History of Present Illness: NETTA RICO is a 69 year old femaleIs of Dr. Gee currently lives in the [facility] have a chest x-ray done suggest the mild congestive heart failure in the nursing facility and patient was short of breath and decided to bring the patient in the hospital. Emergency department patient was complaining some short of breath cough congestions and patient also PCO2 level is elevated Patient's denied any chest pain His other concerns about the complaining of right leg pain which patient claimed that the RADIOLOGY TRANSCRIPTIONIST was trying to help her for her motor wheelchair and patient injured that wheelchair patient have a x-ray of the tibia-fibula was done was negative Patient have a significant history of the COPD asthma history of a former smoker patients probably require oxygen at night and I think patient have a combination of mild heart failure with COPD I decided to admit in the hospital for that and further work-up Patient have a history of the chronic urinary tract infections history of the suprapubic catheter and a history of the gastric bypass and a history of the chronic pain currently see a pain management This history obtained by Dr. Toscano was reviewed. Patient did not add anything more to the history. She did however denied any chest pains. Patient claims that her PCO2 level was very elevated and her brain was not getting enough oxygen therefore she decided to come to the emergency room. However it was in the emergency room that she was noted to have elevated PCO2. Past Medical History Cardiac Medical History: Reports: Congestive Heart Failure, Hyperlipidema, Hypertension, Peripheral Vascular Disease, Heart Murmur Denies: Myocardial Infarction Pulmonary Medical History: Reports: Asthma - severe,neb,inhaler, Bronchitis Denies: Chronic Obstructive Pulmonary Disease (COPD), Pneumonia, Respiratory Failure, Sleep Apnea, Tuberculosis Neurological Medical History: Denies: Seizures Endocrine Medical History: Reports: Diabetes Mellitus Type 2, Hypothyroidism GI Medical History: Reports: Gastroesophageal Reflux Disease, Hiatal Hernia Musculoskeltal Medical History: Reports: Arthritis - RA, Fibromyalgia Psychiatric Medical History: Reports: Depression Hematology: Denies: Anemia, Hemophilia, Sickle Cell Disease Past Surgical History Past Surgical History: Reports: Cholecystectomy, Gastric Bypass Surgery - Lap Band, post in stomach for lap band , Hysterectomy, Orthopedic Surgery - right hip x3, left knee x1, Other - LAP-BAND procedures Denies: Amputation Social History Information Source: Patient Lives with: Family Smoking Status: Never Smoker Electronic Cigarette use?: No Frequency of Alcohol Use: None Hx Recreational Drug Use: No Drugs: None Hx Prescription Drug Abuse: No - Advance Directive Resuscitation Status: Full Code Family History Family History: Reviewed & Not Pertinent, Hypertension Parental Family History Reviewed: Yes - Negative for premature coronary artery d isease or sudden cardiac . Children Family History Reviewed: Yes Sibling(s) Family History Reviewed.: Yes Medication/Allergy Home Medications: Allopurinol [Zyloprim 300 mg Tablet] 300 mg PO DAILY 11/12/19 Amlodipine Besylate [Norvasc 5 mg Tablet] 5 mg PO DAILY 11/12/19 Baclofen [Baclofen 10 mg Tablet] 10 mg PO QID 11/12/19 Benzocaine/Menthol [Chloraseptic Sore Throat Lozenge] 1 lozenge PO Q1HP PRN 11/12/19 Betamethasone Dipropionate [Betamethasone Diprop Augmented] 1 applic TOP BID 11/12/19 Bisacodyl [Dulcolax 5 mg Tablet] 5 mg PO DAILYP PRN 11/12/19 Budesonide/Formoterol Fumarate [Symbicort HFA 160-4.5 mcg Inhaler 6 gm] 2 puff IH BID 11/12/19 Calcium Carbonate [Calcium] 600 mg PO DAILY 11/12/19 Carboxymethylcellulose Sodium [Refresh Celluvisc Drops] 1 drop OU QHS 11/12/19 Carboxymethylcellulose Sodium [Refresh Tears] 1 drop OU QID 11/12/19 Cetirizine HCl [Zyrtec 10 mg Tablet] 10 mg PO DAILYP PRN 11/12/19 Cholecalciferol (Vitamin D3) [Vitamin D3 1000 Unit Tablet] 4,000 unit PO DAILY 11/12/19 Cranberry Fruit Extract [Cranberry 250 mg Capsule] 250 mg PO DAILY 11/12/19 Cyclosporine 0.05% Oph Emulsio [Restasis 0.05% Oph Emulsion Pf 0.4 ml] 1 drop OU Q12 11/12/19 Diphenhydramine HCl [Benadryl 25 mg Capsule] 25 mg PO Q8HP PRN 11/12/19 Furosemide [Lasix 40 mg Tablet] 40 mg PO BID 11/12/19 Gabapentin Enacarbil [Horizant] 600 mg PO QHS 11/12/19 Glimepiride [Amaryl] 2 mg PO DAILY 11/12/19 Hydroxychloroquine Sulfate [Plaquenil 200 mg Tablet] 200 mg PO Q12 11/12/19 Insulin Glargine,Hum.rec.anlog [Lantus Insulin 100 Unit/1 ml 10 ml] 5 units SQ QHS 11/12/19 Insulin Lispro [Humalog Insulin 100 Unit/1 ml 3 ml Vial] 0 unit SUBCUT .SLD SCALE 11/12/19 Ipratropium/Albuterol Sulfate [Duoneb 3 ml Ampul] 3 ml NEB RTQ6HP PRN 11/12/19 Levothyroxine Sodium [Synthroid 0.088 mg Tablet] 0.088 mg PO Q6AM 11/12/19 Menthol/Camphor [Sarna Original 0.5%-0.5% Lotn] 1 applic TOP QIDP PRN 11/12/19 Metoprolol Succinate [Toprol Xl 25 mg Tab.sr] 25 mg PO QHS 11/12/19 Mineral Oil/Hydrophil Petrolat [Aquaphor Healing Ointment] 1 applic TOP BID 11/12/19 Mirabegron [Myrbetriq] 25 mg PO DAILYP PRN 11/12/19 Montelukast Sodium [Singulair 10 mg Tablet] 10 mg PO QHS 11/12/19 Naloxegol Oxalate [Movantik 25 mg Tablet] 25 mg PO DAILY 11/12/19 Ondansetron [Zofran Odt 4 mg Tablet] 4 mg PO Q6HP PRN 11/12/19 Oxycodone HCl [Oxy-Ir 5 mg Tablet] 10 mg PO BIDP PRN 11/12/19 Oxycodone HCl [Oxycodone HCl ER] 30 mg PO Q8 11/12/19 Pantoprazole Sodium [Protonix [address] Tablet] 40 mg PO Q12 11/12/19 Pimecrolimus 1 applic TOP BID 11/12/19 Polyethylene Glycol 3350 [Miralax Powder 17 gm/Packet] 1 packet PO BID 11/12/19 Polyethylene Glycol 3350 [Miralax Powder 17 gm/Packet] 1 packet PO DAILYP PRN 11/12/19 Polyvinyl Alcohol [Liquitears 1.4% Ophth Soln 15 ml] 1 drop OU QIDP PRN 11/12/19 Potassium Chloride [Klor-Con 10 Meq Tablet ER] 10 meq PO Q12 11/12/19 Pregabalin 150 mg PO Q8 11/12/19 Sennosides/Docusate Sodium [Senna Plus 8.6-50 mg Tablet] 1 tab PO BID 11/12/19 Sodium Chloride [Richardson Nasal [place] 44 ml Bottle] 1 spray NASL DAILYP PRN 11/12/19 Allergies/Adverse Reactions: ciprofloxacin [From Cipro] Allergy (Severe, Verified 08/27/19 16:02) Anaphylaxis Penicillins Allergy (Severe, Verified 08/27/19 16:02) Anaphylaxis adhesive tape [Adhesive Tape] Adverse Reaction (Severe, Verified 08/27/19 16:02) BLISTERS, SKIN BECOMES RAW indomethacin [From Indocin] Adverse Reaction (Severe, Verified 08/27/19 16:02) CAUSES SWELLING AND INFLAMMATION meperidine HCl [From Demerol] Adverse Reaction (Severe, Verified 08/27/19 16:02) Hallucinations Review of Systems Review of Systems: Please see history of present illness and past medical history as wall. Constitutional: No fever or chills reported. Head : No recent chronic headaches, recent head injury. Eyes: No recent eye pain, diplopia, redness, discharge, acute visual changes. Ears: No recent chronic ear pain, acute hearing loss, ear discharge. Oral cavity: No recent ulcerations, bleeding, oral cavity discomfort. Neck: No recent acute neck pain reported. Hematologic: No recent easy bruising or bleeding. Lymphatic: No recent lymph node enlargement reported. Cardiovascular system review: See history of present illness. Respiratory system review: No hemoptysis or blood clots in the lungs reported. Significant shortness of breath on exertion Gastrointestinal system review: Negative for any recent acute hematemesis, melena. Genitourinary system review: No recent acute or chronic hematuria, flank pain, UTI etc. reported. Skin system review: Negative for any recent abnormal bruising, no rash, no pruritus reported. Neurologic: No prior history of strokes, mini strokes, seizure disorder. Psychologic: No history of major psychosis or major depression reported. Musculoskeletal: Minor aches and pains reported. No acute joint swelling re ported. Endocrine: No recent polyuria, polydipsia, recent heat or cold intolerance. Physical Exam Vital Signs: Temp Pulse Resp BP Pulse Ox 97.5 F 75 20 111/84 93 11/12/19 16:26 11/12/19 16:26 11/12/19 16:26 11/12/19 16:26 11/12/19 16:26 Intake & Output 11/11/19 11/12/19 11/13/19 06:59 06:59 06:59 Intake Total 260 960 Output Total 425 975 Balance -165 -15 Weight 164.3 kg Exam: GENERAL: well-nourished and in no acute distress. Alert and oriented x3, wero ent has morbid obesity. HEAD: Atraumatic, normocephalic. EYES: MADHAV, sclera anicteric, conjunctiva are normal. ENT: Moist mucous membranes. No oral ulcerations or bleeding gums noted. No obvious ear, nose or throat abnormalities noted. NECK: supple without lymphadenopathy. Trachea is central. No cervical or axillary lymphadenopathy noted. Carotids are 2+, JVD WNL LUNGS: Breath sounds clear bilaterally. No wheezes rales or rhonchi noted. No significant dullness noted on percussion. CHEST: Palpation of the chest wall shows no significant chest wall tenderness. HEART: [place] PRODUCTION HELPER, No PSH, 2/6 RICK aortic area, 1/6 weems systolic murmur mitral area, no rubs, no gallops. ABDOMEN: Soft, no significant tenderness appreciated, normoactive bowel sounds. No guarding, no rebound. No rigidity noted . No masses appreciated. EXTREMITIES: Pedal pulses are 1-2+, no calf tenderness noted. No clubbing or cyanosis. 2+ chronic pedal edema noted NEUROLOGICAL: Focused neurological exam showed no significant neurologic deficit. Normal speech, no focal weakness appreciated. PSYCH: Normal mood, normal affect. Judgment and insight within normal limits. SKIN: No significant ecchymosis, skin is noted to be warm. MUSCULOSKELETAL EXAM: No significant acute joint swelling noted. Results Laboratory Results: 11/11/19 16:42 11/12/19 01:17 11/11/19 11/12/19 11/12/19 23:07 00:42 01:17 Carbonic Acid 1.61 H HCO3/H2CO3 Ratio 19:1 ABG pH 7.38 ABG pCO2 53.4 H ABG pO2 68.2 L ABG HCO3 31.0 H ABG O2 Saturation 93.0 L ABG Base Excess 4.6 FiO2 2L Sodium 136.1 L Potassium 5.0 Chloride 97 L Carbon Dioxide 29 Anion Gap 10 BUN 38 H Creatinine 1.09 Est GFR ( Amer) > 60 Glucose 298 H Calcium 8.6 Urine Color DARK YELLOW Urine Appearance CLOUDY Urine pH 7.0 Ur Specific [place] 1.014 Urine Protein 100 H Urine Glucose (UA) NEGATIVE Urine Ketones NEGATIVE Urine Blood SMALL H Urine Nitrite POSITIVE H Ur Leukocyte Esterase LARGE H Urine WBC (Auto) >182 Urine RBC (Auto) 37 11/12/19 10:15 Carbonic Acid 1.52 H HCO3/H2CO3 Ratio 18:1 ABG pH 7.36 ABG pCO2 50.5 H ABG pO2 55.9 L ABG HCO3 28.1 H ABG O2 Saturation 87.7 L ABG Base Excess 1.8 FiO2 2.5L Sodium Potassium Chloride Carbon Dioxide Anion Gap BUN Creatinine Est GFR ( Amer) Glucose Calcium Urine Color Urine Appearance Urine pH Ur Specific [place] Urine Protein Urine Glucose (UA) Urine Ketones Urine Blood Urine Nitrite Ur Leukocyte Esterase Urine WBC (Auto) Urine RBC (Auto) 11/11/19 11/11/19 11/12/19 16:42 16:42 10:45 Creatine Kinase 130 78 CK-MB (CK-2) 1.23 Troponin I < 0.012 NT-Pro-B Natriuret Pep 468 H 11/12/19 11/12/19 11/12/19 10:45 15:10 15:10 Creatine Kinase 75 CK-MB (CK-2) 1.29 1.58 Troponin I < 0.012 < 0.012 NT-Pro-B Natriuret Pep EKG Comments: Sinus rhythm, no acute ST-T wave changes noted. Nonprogression of R waves anterior precordial lead consistent with possible prior anterior NJ. Impressions: Chest X-Ray 11/11/19 16:40 IMPRESSION: NO ACUTE RADIOGRAPHIC FINDING IN THE CHEST. Tibia/Fibula X-Ray 11/11/19 21:52 IMPRESSION: There are no findings to suggest an acute fracture or subluxation within the right tibia or fibula. Venous Doppler Study 11/12/19 00:00 IMPRESSION: Negative for DVT or SVT, as imaged. Assessment & Plan - Diagnosis (1) Hypercapnic respiratory failure Qualifiers: Chronicity: acute on chronic Qualified Code(s): J96.22 - Acute and chronic respiratory failure with hypercapnia Is this a current diagnosis for this admission?: Yes (2) Hypoxia Is this a current diagnosis for this admission?: Yes (3) Diastolic congestive heart failure Qualifiers: Heart failure chronicity: acute on chronic Qualified Code(s): I50.33 - Acute on chronic diastolic (congestive) heart failure Is this a current diagnosis for this admission?: Yes (4) Hypertension Qualifiers: Hypertension type: essential hypertension Is this a current diagnosis for this admission?: Yes (5) Obesity hypoventilation syndrome Is this a current diagnosis for this admission?: Yes (6) Morbid obesity Is this a current diagnosis for this admission?: Yes - Notes Notes: Patient admitted with dyspnea and pedal edema. Patient noted to have hypercarbic and hypoxemic respiratory failure. This is most likely related to severe obesity and associated obesity hypoventilation syndrome. Patient does seem to have mild CHF based on elevated BNP level and pedal edema. Recommend diuretic therapy. Will add acetazolamide. Hypertension: Recommend good management of blood pressure. Spironolactone may be a preferred agent in this patient. Along with other agents as needed. Patient will benefit from very aggressive management of obesity which will be very difficult in this patient who is basically cannot do much activity. Patient is also status post gastric bypass. Recommend evaluate for any vitamin deficiencies. Patient will benefit from nightly positive airway pressure therapy. - Time Time Spent: 30 to 50 Minutes - More than 50% of the time spent coordinating care, discussing management plans with involved caregivers. Management plans discussed with involved personnels. Medical decision making was of moderate to high complexity, patient's has multiple comorbidities. Medications reviewed and adjusted accordingly: Yes
[2019-11-12] MEDS ORDERED: CARBOXYMETHYLCELLULOSE SODIUM OU SCH (22:00)
[2019-11-12] MEDS ORDERED: (PENDING PHARMACY ID) (Gabapentin Enacarbil [Horizant] 600 MG) PO SCH (22:00)
[2019-11-12 22:39] LABS: CREATINE KINASE MB 1.86 ng/mL (<4.55)
[2019-11-12 22:49] LABS: TROPONIN I < 0.012 ng/mL
[2019-11-12] MEDS: HYDROXYCHLOROQUINE SULFATE 200 MG TABLET PO SCH (23:24)
[2019-11-12] MEDS: POTASSIUM CHLORIDE 10 MEQ TABLET.ER PO SCH (23:24)
[2019-11-12] MEDS: PANTOPRAZOLE SODIUM 40 MG TABLET.DR PO SCH (23:24)
[2019-11-12] MEDS: MONTELUKAST SODIUM 10 MG TABLET PO SCH (23:25)
[2019-11-12] MEDS: INSULIN GLARGINE,HUM.REC.ANLOG 1,000 UNIT/10 ML VIAL SUBCUT SCH (23:39)
[2019-11-12] MEDS: CYCLOSPORINE 0.05% OPH EMULSIO 0.4 ML DROPERETTE OU SCH (23:40)
[2019-11-12] MEDS: METOPROLOL SUCCINATE 25 MG TAB.SR.24H PO SCH (23:41)
--- NOTE | 2019-11-13 00:24 | EKG REPORT ---
SEVERITY:- ABNORMAL ECG - SINUS RHYTHM FIRST DEGREE AV BLOCK LEFT AXIS DEVIATION BORDERLINE T ABNORMALITIES, INFERIOR LEADS : Confirmed by: Yani Rolon 13-Nov-2019 00:23:20
[2019-11-13] MEDS: GABAPENTIN 100 MG CAPSULE PO SCH ×3 (05:45→22:45)
[2019-11-13] MEDS: LEVOTHYROXINE SODIUM 0.088 MG TABLET PO SCH (05:45)
[2019-11-13] MEDS: OXYCODONE HCL SR 10 MG TABLET PO SCH ×3 (05:46→22:44)
[2019-11-13] MEDS: METHYLPREDNISOLONE INJ 40 MG/1 ML SDV IV SCH ×3 (05:47→22:47)
[2019-11-13 07:07] LABS: HEMATOCRIT 35.4 % (36.0-47.0); MEAN CORPUSCULAR HEMOGLOBIN 31.4 pg (27.0-33.4); MEAN CORPUSCULAR HGB CONC 33.9 g/dL (32.0-36.0); MEAN CORPUSCULAR VOLUME 93 fl (80-97); PLATELET COUNT 169 10^3/uL (150-450); RED BLOOD COUNT 3.82 10^6/uL (3.72-5.28); RED CELL DISTRIBUTION WIDTH 14.4 % (11.5-14.0); WHITE BLOOD COUNT 6.4 10^3/uL (4.0-10.5)
[2019-11-13 07:31] LABS: ANION GAP 8 (5-19); BLOOD UREA NITROGEN 40 mg/dL (7-20); CALCIUM 8.2 mg/dL (8.4-10.2); CARBON DIOXIDE 28 mmol/L (22-30); CHLORIDE 98 mmol/L (98-107); GLUCOSE 289 mg/dL (75-110); POTASSIUM 4.5 mmol/L (3.6-5.0)
[2019-11-13] MEDS: IPRATROPIUM/ALBUTEROL 0.5-2.5 MG/3 ML AMPUL NEB SCH ×3 (08:13→20:53)
[2019-11-13] MEDS: INSULIN LISPRO 100 UNIT/ML 3 ML VIAL SUBCUT SCH ×4 (08:59→22:46)
[2019-11-13] MEDS: FUROSEMIDE INJ/PF 20 MG/2 ML SDV IV SCH ×2 (09:14→22:47)
[2019-11-13] MEDS: POLYETHYLENE GLYCOL 3350 POWDER 17 GM/1 PACKET PO SCH ×2 (09:15→18:03)
[2019-11-13] MEDS: PANTOT AC/MIN OIL/PET HY-PHL OINT 50 GM TOP SCH ×2 (09:15→18:09)
[2019-11-13] MEDS: GLIMEPIRIDE 1 MG TABLET PO SCH (09:16)
[2019-11-13] MEDS: SODIUM CHLORIDE NASAL SPRAY 44 ML NASL PRN (09:16)
[2019-11-13] MEDS: POLYVINYL ALCOHOL 1.4% OPH SOLN 15 ML OU PRN (09:16)
[2019-11-13] MEDS: FLUTICASONE/VILANTEROL 200-25 MCG/DOSE IH SCH (09:17)
[2019-11-13] MEDS: ACETAZOLAMIDE 250 MG TABLET PO SCH (09:18)
[2019-11-13] MEDS: CYCLOSPORINE 0.05% OPH EMULSIO 0.4 ML DROPERETTE OU SCH ×2 (09:18→22:30)
[2019-11-13] MEDS: SENNOSIDES/DOCUSATE 8.6-50 MG 1 EACH TABLET PO SCH ×2 (09:19→18:04)
[2019-11-13] MEDS: HYDROXYCHLOROQUINE SULFATE 200 MG TABLET PO SCH ×2 (09:19→22:46)
[2019-11-13] MEDS: CALCIUM CARBONATE 500 MG TABLET PO SCH (09:19)
[2019-11-13] MEDS: CETIRIZINE 10 MG TABLET PO PRN (09:19)
[2019-11-13] MEDS: AMLODIPINE BESYLATE 5 MG TABLET PO SCH (09:19)
[2019-11-13] MEDS: ALLOPURINOL 300 MG TABLET PO SCH (09:19)
[2019-11-13] MEDS: BACLOFEN 10 MG TABLET PO SCH ×4 (09:19→22:45)
[2019-11-13] MEDS: POTASSIUM CHLORIDE 10 MEQ TABLET.ER PO SCH ×2 (09:19→22:43)
[2019-11-13] MEDS: PANTOPRAZOLE SODIUM 40 MG TABLET.DR PO SCH ×2 (09:19→22:46)
[2019-11-13] MEDS: ENOXAPARIN SODIUM INJ 40 MG/0.4 ML DISP.SYRIN SUBCUT SCH (09:27)
[2019-11-13] MEDS ORDERED: CRANBERRY FRUIT EXTRACT 250 MG PO SCH (10:00)
[2019-11-13] MEDS ORDERED: (PENDING PHARMACY ID) (Calcium Carbonate [Calcium] 600 MG) PO SCH (10:00)
[2019-11-13] MEDS ORDERED: (PENDING PHARMACY ID) (Naloxegol Oxalate 25 MG) PO SCH (10:00)
[2019-11-13] MEDS: CARBOXYMETHYLCELLULOSE SOD 0.5% 0.4 ML DROPERETTE OU SCH ×3 (14:07→22:30)
[2019-11-13] MEDS: OXYCODONE HCL IR 5 MG TABLET PO PRN (18:06)
[2019-11-13] MEDS: METOPROLOL SUCCINATE 25 MG TAB.SR.24H PO SCH (22:00)
--- NOTE | 2019-11-13 22:38 | PDOC PROGRESS REPORT ---
Subjective Progress Note for:: 11/13/19 Subjective:: Patient biggest challenge is body habitus, she was admitted over the weekend for evaluation of chronic hypoxemic, hypercapnic respiratory failure due to morbid obesity, chronic UTI due to indwelling suprapubic catheter, she was seen by the bedside, evaluated she complained of pain in her legs where she stated that the CRIME SCENE INVESTIGATOR mistakenly ran over the leg with a motorized wheelchair Reason For Visit: SOB Physical Exam Vital Signs: Temp Pulse Resp BP Pulse Ox 97.4 F 70 16 89/35 L 98 11/13/19 20:25 11/13/19 20:53 11/13/19 20:53 11/13/19 20:25 11/13/19 20:53 Intake & Output 11/12/19 11/13/19 11/14/19 06:59 06:59 06:59 Intake Total 260 1720 1432 Output Total 425 1550 350 Balance -723 789 9064 Weight 164.3 kg 164.6 kg General appearance: PRESENT: no acute distress Eye exam: PRESENT: PERRLA Respiratory exam: PRESENT: clear to auscultation pennie Cardiovascular exam: PRESENT: +S1, +S2 GI/Abdominal exam: PRESENT: soft Neurological exam: PRESENT: alert Results Laboratory Results: 11/13/19 06:03 11/13/19 06:03 11/13/19 11/13/19 06:03 06:03 WBC 6.4 RBC 3.82 Hgb 12.0 Hct 35.4 L MCV 93 MCH 31.4 MCHC 33.9 RDW 14.4 H Plt Count 169 Sodium 133.6 L Potassium 4.5 Chloride 98 Carbon Dioxide 28 Anion Gap 8 BUN 40 H Creatinine 0.78 Est GFR ( Amer) > 60 Glucose 289 H Calcium 8.2 L 11/11/19 11/11/19 11/12/19 16:42 16:42 10:45 Creatine Kinase 130 78 CK-MB (CK-2) 1.23 Troponin I < 0.012 NT-Pro-B Natriuret Pep 468 H 11/12/19 11/12/19 11/12/19 10:45 15:10 15:10 Creatine Kinase 75 CK-MB (CK-2) 1.29 1.58 Troponin I < 0.012 < 0.012 NT-Pro-B Natriuret Pep 11/12/19 11/12/19 21:50 21:50 Creatine Kinase 73 CK-MB (CK-2) 1.86 Troponin I < 0.012 NT-Pro-B Natriuret Pep Impressions: Chest X-Ray 11/11/19 16:40 IMPRESSION: NO ACUTE RADIOGRAPHIC FINDING IN THE CHEST. Tibia/Fibula X-Ray 11/11/19 21:52 IMPRESSION: There are no findings to suggest an acute fracture or subluxation within the right tibia or fibula. Venous Doppler Study 11/12/19 00:00 IMPRESSION: Negative for DVT or SVT, as imaged. Assessment & Plan - Diagnosis (1) Acute on chronic respiratory failure with hypoxia and hypercapnia Is this a current diagnosis for this admission?: Yes Plan: Continue present line of treatment (2) Chronic UTI Is this a current diagnosis for this admission?: Yes (3) Chronic indwelling Sales catheter Is this a current diagnosis for this admission?: Yes - Time Time Spent with patient: 35 or more minutes
[2019-11-13] MEDS: MONTELUKAST SODIUM 10 MG TABLET PO SCH (22:46)
[2019-11-13] MEDS: INSULIN GLARGINE,HUM.REC.ANLOG 1,000 UNIT/10 ML VIAL SUBCUT SCH (22:47)
[2019-11-14] MEDS: OXYCODONE HCL SR 10 MG TABLET PO SCH ×3 (05:08→21:20)
[2019-11-14] MEDS: METHYLPREDNISOLONE INJ 40 MG/1 ML SDV IV SCH ×3 (05:08→21:22)
[2019-11-14] MEDS: LEVOTHYROXINE SODIUM 0.088 MG TABLET PO SCH (05:09)
[2019-11-14] MEDS: GABAPENTIN 100 MG CAPSULE PO SCH ×3 (05:09→21:19)
[2019-11-14] MEDS: CARBOXYMETHYLCELLULOSE SOD 0.5% 0.4 ML DROPERETTE OU SCH ×8 (05:11→21:41)
[2019-11-14 06:46] LABS: HEMATOCRIT 37.1 % (36.0-47.0); HEMOGLOBIN 12.7 g/dL (12.0-15.5); MEAN CORPUSCULAR HEMOGLOBIN 31.6 pg (27.0-33.4); MEAN CORPUSCULAR HGB CONC 34.3 g/dL (32.0-36.0); MEAN CORPUSCULAR VOLUME 92 fl (80-97); PLATELET COUNT 183 10^3/uL (150-450); RED BLOOD COUNT 4.02 10^6/uL (3.72-5.28); RED CELL DISTRIBUTION WIDTH 14.1 % (11.5-14.0); WHITE BLOOD COUNT 6.3 10^3/uL (4.0-10.5)
[2019-11-14 07:12] LABS: ANION GAP 18 (5-19); BLOOD UREA NITROGEN 43 mg/dL (7-20); CALCIUM 8.1 mg/dL (8.4-10.2); CARBON DIOXIDE 24 mmol/L (22-30); CHLORIDE 91 mmol/L (98-107); GLUCOSE 393 mg/dL (75-110); POTASSIUM 4.7 mmol/L (3.6-5.0)
[2019-11-14] MEDS: INSULIN LISPRO 100 UNIT/ML 3 ML VIAL SUBCUT SCH ×4 (08:13→22:42)
[2019-11-14] MEDS: IPRATROPIUM/ALBUTEROL 0.5-2.5 MG/3 ML AMPUL NEB SCH ×3 (08:43→21:02)
--- NOTE | 2019-11-14 09:42 | XCELERA REPORT ---
[address] [address] Transthoracic Echocardiogram Report Name: NETTA RICO Age: 69 yrs Gender: Female : 1950 Patient Status: Inpatient Patient Location: [address] [place], [place] [id number] Study Date: 11/13/2019 06:13 PM Height: 63 in Weight: 362 lb BSA: 2.5 m2 Procedure: A complete two-dimensional transthoracic echocardiogram was performed (2D, M-mode, spectral and color flow Doppler). The study was technically adequate with some images being suboptimal in quality. Reason For Study: CHF Ordering Physician: YANI KAN Performed By: Tori Gleason Interpretation Summary The left ventricular ejection fraction is within normal limits. There is mild concentric left ventricular hypertrophy. The left ventricle is grossly normal size. Doppler measurements suggest pseudonormalized left ventricular relaxation, which is associated with grade II/IV or mild to moderate diastolic dysfunction Wall motion cannot be accurately commented on, but no definite regional wall motion abnormalities noted. The right ventricle is moderately dilated. Borderline left atrial enlargement. The right atrium is moderately dilated. There is a trace to mild amount of mitral regurgitation There is no mitral valve stenosis. No aortic regurgitation is present. There is no aortic valve stenosis There is a mild amount of tricuspid regurgitation There is mild to moderate pulmonary hypertension by echo Right ventricular systolic pressure is estimated to be elevated at 40-50mmHg. The pulmonic valve is not well visualized. The aortic root is not well visualized but is probably normal size. The inferior vena cava appeared normal and decreased < 50% with respiration (RAP 10-15 mmHg) There is no pericardial effusion. MMode/2D Measurements & Calculations RVDd: 2.8 cm LVIDd: 4.3 cm FS: 30.0 % Ao root diam: 3.0 cm IVSd: 1.0 cm LVIDs: 3.0 cm EDV(Teich): 84.1 ml Ao root area: 7.0 cm2 LVPWd: 0.97 cm ESV(Teich): 35.7 ml LA dimension: 3.5 cm EF(Teich): 57.5 % Doppler Measurements & Calculations MV E max kenton: MV P1/2t max kenton: Ao V2 max: LV V1 max P.9 cm/sec 120.8 cm/sec 150.7 cm/sec 4.4 mmHg MV A max kenton: MV P1/2t: 55.1 msec Ao max P.1 mmHgLV V1 max: 108.1 cm/sec MVA(P1/2t): 4.0 cm2 105.1 cm/sec MV E/A: 0.80 MV dec slope: 642.5 cm/sec2 MV dec time: 0.20 sec PA V2 max: TR max kenton: MV P1/2t-pr_phl: 138.5 cm/sec 282.3 cm/sec 55.1 msec PA max P.7 mmHgTR max P.9 mmHg Left Ventricle The left ventricle is grossly normal size. There is mild concentric left ventricular hypertrophy. The left ventricular ejection fraction is within normal limits. Doppler measurements suggest pseudonormalized left ventricular relaxation, which is associated with grade II/IV or mild to moderate diastolic dysfunction. Wall motion cannot be accurately commented on, but no definite regional wall motion abnormalities noted. Right Ventricle The right ventricle is moderately dilated. There is normal right ventricular wall thickness. The right ventricular systolic function is mildly reduced. Atria The right atrium is moderately dilated. Borderline left atrial enlargement. Interarterial septum not well visualized and not well dopplered. Cannot comment on ASD/PFO presence. Mitral Valve The mitral valve leaflets are sclerotic, but show no functional abnormalities. There is no mitral valve stenosis. There is a trace to mild amount of mitral regurgitation. Aortic Valve The aortic valve is grossly normal. There is no aortic valve stenosis. No aortic regurgitation is present. Tricuspid Valve The tricuspid valve is not well visualized, but is grossly normal. There is no tricuspid stenosis. There is a mild amount of tricuspid regurgitation. There is mild to moderate pulmonary hypertension by echo. Right ventricular systolic pressure is estimated to be elevated at 40-50mmHg. Pulmonic Valve The pulmonic valve is not well visualized. Great Vessels The aortic root is not well visualized but is probably normal size. The inferior vena cava appeared normal and decreased < 50% with respiration (RAP 10-15 mmHg). Effusions There is no pericardial effusion. : YANI KAN Shyamal
--- NOTE | 2019-11-14 09:49 | PDOC PROGRESS REPORT ---
Subjective Progress Note for:: 11/13/19 Subjective:: Patient denies any new symptoms. Patient claims that she feels better. Patient seems to be doing better with gradual improvement. Pt is denying any chest arm or neck discomfort. Patient denying any PND, orthopnea. Patient denied any sustained palpitations, dizziness, syncope, near syncope. Patient denying any fever chills. Patient denying any other significant discomfort. Patient is maintaining sinus rhythm. Review of systems: Rest review of systems negative. Medications: Medications have been reviewed. Reason For Visit: SOB Physical Exam Vital Signs: Temp Pulse Resp BP Pulse Ox 97.3 F 72 19 129/48 H 100 11/13/19 16:58 11/13/19 16:58 11/13/19 16:58 11/13/19 16:58 11/13/19 16:58 Intake & Output 11/12/19 11/13/19 11/14/19 06:59 06:59 06:59 Intake Total 260 1720 1432 Output Total 425 1550 350 Balance -815 852 5364 Weight 164.3 kg 164.6 kg Exam: GENERAL: well-nourished and in no acute distress. Alert and oriented x3, patient is morbidly obese. HEAD: Atraumatic, normocephalic. EYES: MADHAV, sclera anicteric, conjunctiva are normal. ENT: Moist mucous membranes. No oral ulcerations or bleeding gums noted. No obvious ear, nose or throat abnormalities noted. NECK: supple without lymphadenopathy. Trachea is central. No cervical or axillary lymphadenopathy noted. Carotids are 2+, JVD WNL LUNGS: Bibasilar fine crackles are noted. No wheezes rales or rhonchi noted. No significant dullness noted on percussion. CHEST: Palpation of the chest wall shows no significant chest wall tenderness. 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 ABDOMEN: Soft, no significant tenderness appreciated, normoactive bowel sounds. No guarding, no rebound. No rigidity noted . No masses appreciated. EXTREMITIES: Pedal pulses are 1-2+, no calf tenderness noted. No clubbing or cyanosis. 2+ chronic pedal edema noted NEUROLOGICAL: Focused neurological exam showed no significant neurologic deficit. Normal speech, no focal weakness appreciated. PSYCH: Normal mood, normal affect. Judgment and insight within normal limits. SKIN: No significant ecchymosis, skin is noted to be warm. MUSCULOSKELETAL EXAM: No significant acute joint swelling noted. Results Laboratory Results: 11/13/19 06:03 11/13/19 06:03 11/13/19 11/13/19 06:03 06:03 WBC 6.4 RBC 3.82 Hgb 12.0 Hct 35.4 L MCV 93 MCH 31.4 MCHC 33.9 RDW 14.4 H Plt Count 169 Sodium 133.6 L Potassium 4.5 Chloride 98 Carbon Dioxide 28 Anion Gap 8 BUN 40 H Creatinine 0.78 Est GFR ( Amer) > 60 Glucose 289 H Calcium 8.2 L 11/11/19 11/11/19 11/12/19 16:42 16:42 10:45 Creatine Kinase 130 78 CK-MB (CK-2) 1.23 Troponin I < 0.012 NT-Pro-B Natriuret Pep 468 H 11/12/19 11/12/19 11/12/19 10:45 15:10 15:10 Creatine Kinase 75 CK-MB (CK-2) 1.29 1.58 Troponin I < 0.012 < 0.012 NT-Pro-B Natriuret Pep 11/12/19 11/12/19 21:50 21:50 Creatine Kinase 73 CK-MB (CK-2) 1.86 Troponin I < 0.012 NT-Pro-B Natriuret Pep EKG Comments: Telemetry shows sinus rhythm without any sustained tachycardia or bradycardia. Impressions: Chest X-Ray 11/11/19 16:40 IMPRESSION: NO ACUTE RADIOGRAPHIC FINDING IN THE CHEST. Tibia/Fibula X-Ray 11/11/19 21:52 IMPRESSION: There are no findings to suggest an acute fracture or subluxation within the right tibia or fibula. Venous Doppler Study 11/12/19 00:00 IMPRESSION: Negative for DVT or SVT, as imaged. Assessment & Plan - Diagnosis (1) Hypercapnic respiratory failure Qualifiers: Chronicity: acute on chronic Qualified Code(s): J96.22 - Acute and chronic respiratory failure with hypercapnia Is this a current diagnosis for this admission?: Yes (2) Hypoxia Is this a current diagnosis for this admission?: Yes (3) Diastolic congestive heart failure Qualifiers: Heart failure chronicity: acute on chronic Qualified Code(s): I50.33 - Acute on chronic diastolic (congestive) heart failure Is this a current diagnosis for this admission?: Yes (4) Hypertension Qualifiers: Hypertension type: essential hypertension Qualified Code(s): I10 - Essential (primary) hypertension Is this a current diagnosis for this admission?: Yes (5) Obesity hypoventilation syndrome Is this a current diagnosis for this admission?: Yes (6) Morbid obesity Is this a current diagnosis for this admission?: Yes - Notes Notes: 2D echocardiogram pending at the time of dictation. Patient remains stable. Patient will benefit from nightly positive pressure ventilatory support. Continue baseline diuretic therapy. Patient will eventually benefit from aggressive weight loss but that will be very difficult to achieve. We will continue to follow. - Time Time with patient: Greater than 35 minutes Medications reviewed and adjusted accordingly: Yes
[2019-11-14] MEDS: FLUTICASONE/VILANTEROL 200-25 MCG/DOSE IH SCH (10:12)
[2019-11-14] MEDS: SENNOSIDES/DOCUSATE 8.6-50 MG 1 EACH TABLET PO SCH ×2 (10:12→18:03)
[2019-11-14] MEDS: POLYETHYLENE GLYCOL 3350 POWDER 17 GM/1 PACKET PO SCH ×2 (10:12→18:04)
[2019-11-14] MEDS: AMLODIPINE BESYLATE 5 MG TABLET PO SCH (10:12)
[2019-11-14] MEDS: FUROSEMIDE INJ/PF 20 MG/2 ML SDV IV SCH ×2 (10:12→21:20)
[2019-11-14] MEDS: POTASSIUM CHLORIDE 10 MEQ TABLET.ER PO SCH ×2 (10:13→21:22)
[2019-11-14] MEDS: ACETAZOLAMIDE 250 MG TABLET PO SCH (10:13)
[2019-11-14] MEDS: HYDROXYCHLOROQUINE SULFATE 200 MG TABLET PO SCH ×2 (10:13→21:22)
[2019-11-14] MEDS: PANTOPRAZOLE SODIUM 40 MG TABLET.DR PO SCH ×2 (10:13→21:24)
[2019-11-14] MEDS: BACLOFEN 10 MG TABLET PO SCH ×4 (10:13→21:22)
[2019-11-14] MEDS: CALCIUM CARBONATE 500 MG TABLET PO SCH (10:13)
[2019-11-14] MEDS: PANTOT AC/MIN OIL/PET HY-PHL OINT 50 GM TOP SCH ×2 (10:13→18:03)
[2019-11-14] MEDS: ALLOPURINOL 300 MG TABLET PO SCH (10:13)
[2019-11-14] MEDS: ENOXAPARIN SODIUM INJ 40 MG/0.4 ML DISP.SYRIN SUBCUT SCH (10:14)
[2019-11-14] MEDS: GLIMEPIRIDE 1 MG TABLET PO SCH (10:14)
[2019-11-14] MEDS: POLYVINYL ALCOHOL 1.4% OPH SOLN 15 ML OU PRN (10:14)
[2019-11-14] MEDS: CYCLOSPORINE 0.05% OPH EMULSIO 0.4 ML DROPERETTE OU SCH ×2 (10:15→21:20)
[2019-11-14] MEDS: OXYCODONE HCL IR 5 MG TABLET PO PRN (18:05)
--- NOTE | 2019-11-14 20:07 | PDOC PROGRESS REPORT ---
Subjective Progress Note for:: 11/14/19 Subjective:: 11/14/2019 patient denies any new symptoms. Patient claims that she feels better. Patient claims she is no longer using BiPAP therapy because of difficulty with its use. She categorically denies considering this. Patient seems to be doing better with gradual improvement. Pt is denying any chest arm or neck discomfort. Patient denying any PND, orthopnea. Patient denied any sustained palpitations, dizziness, syncope, near syncope. Patient denying any fever chills. Patient denying any other significant discomfort. Patient is maintaining sinus rhythm. Review of systems: Rest review of systems negative. Medications: Medications have been reviewed. Reason For Visit: SOB Physical Exam Vital Signs: Temp Pulse Resp BP Pulse Ox 97.3 F 63 18 121/65 100 11/14/19 15:44 11/14/19 19:00 11/14/19 15:44 11/14/19 15:44 11/14/19 15:44 Intake & Output 11/13/19 11/14/19 11/15/19 06:59 06:59 06:59 Intake Total 1720 3112 880 Output Total 1550 1450 700 Balance 170 1662 180 Weight 164.6 kg 164.1 kg Exam: GENERAL: well-nourished and in no acute distress. Alert and oriented x3 HEAD: Atraumatic, normocephalic. EYES: MADHAV, sclera anicteric, conjunctiva are normal. ENT: Moist mucous membranes. No oral ulcerations or bleeding gums noted. No obvious ear, nose or throat abnormalities noted. NECK: supple without lymphadenopathy. Trachea is central. No cervical or axillary lymphadenopathy noted. Carotids are 2+, JVD WNL LUNGS: Breath sounds clear bilaterally. No wheezes rales or rhonchi noted. No significant dullness noted on percussion. CHEST: Palpation of the chest wall shows no significant chest wall tenderness. 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 ABDOMEN: Soft, no significant tenderness appreciated, normoactive bowel sounds. No guarding, no rebound. No rigidity noted . No masses appreciated. EXTREMITIES: Pedal pulses are 1-2+, no calf tenderness noted. No clubbing or cyanosis. Mild pedal edema noted NEUROLOGICAL: Focused neurological exam showed no significant neurologic deficit. Normal speech, no focal weakness appreciated. PSYCH: Normal mood, normal affect. Judgment and insight within normal limits. SKIN: No significant ecchymosis, skin is noted to be warm. MUSCULOSKELETAL EXAM: No significant acute joint swelling noted. Results Laboratory Results: 11/14/19 05:47 11/14/19 05:47 11/14/19 11/14/19 05:47 05:47 WBC 6.3 RBC 4.02 Hgb 12.7 Hct 37.1 MCV 92 MCH 31.6 MCHC 34.3 RDW 14.1 H Plt Count 183 Sodium 133.3 L Potassium 4.7 Chloride 91 L Carbon Dioxide 24 Anion Gap 18 BUN 43 H Creatinine 0.74 Est GFR ( Amer) > 60 Glucose 393 H Calcium 8.1 L 11/11/19 11/11/19 11/12/19 16:42 16:42 10:45 Creatine Kinase 130 78 CK-MB (CK-2) 1.23 Troponin I < 0.012 NT-Pro-B Natriuret Pep 468 H 11/12/19 11/12/19 11/12/19 10:45 15:10 15:10 Creatine Kinase 75 CK-MB (CK-2) 1.29 1.58 Troponin I < 0.012 < 0.012 NT-Pro-B Natriuret Pep 11/12/19 11/12/19 21:50 21:50 Creatine Kinase 73 CK-MB (CK-2) 1.86 Troponin I < 0.012 NT-Pro-B Natriuret Pep EKG Comments: Telemetry shows sinus rhythm Impressions: Chest X-Ray 11/11/19 16:40 IMPRESSION: NO ACUTE RADIOGRAPHIC FINDING IN THE CHEST. Tibia/Fibula X-Ray 11/11/19 21:52 IMPRESSION: There are no findings to suggest an acute fracture or subluxation within the right tibia or fibula. Venous Doppler Study 11/12/19 00:00 IMPRESSION: Negative for DVT or SVT, as imaged. Assessment & Plan - Diagnosis (1) Hypercapnic respiratory failure Qualifiers: Chronicity: acute on chronic Qualified Code(s): J96.22 - Acute and chronic respiratory failure with hypercapnia Is this a current diagnosis for this admission?: Yes (2) Hypoxia Is this a current diagnosis for this admission?: Yes (3) Diastolic congestive heart failure Qualifiers: Heart failure chronicity: acute on chronic Qualified Code(s): I50.33 - Acute on chronic diastolic (congestive) heart failure Is this a current diagnosis for this admission?: Yes (4) Hypertension Qualifiers: Hypertension type: essential hypertension Qualified Code(s): I10 - Essential (primary) hypertension Is this a current diagnosis for this admission?: Yes (5) Obesity hypoventilation syndrome Is this a current diagnosis for this admission?: Yes (6) Morbid obesity Is this a current diagnosis for this admission?: Yes - Notes Notes: 2D echocardiogram results were reviewed. Patient noted to have RV enlargement with mild RV dysfunction. Significant LV diastolic dysfunction also noted. CHF felt to be related to Diastolic dysfunction with contribution from right heart failure. Patient remains stable. Patient will benefit from nightly positive pressure ventilatory support however patient would not consider this. Other option of aggressive weight loss is not reasonable to expect in this patient with very limited mobility. Continue baseline diuretic therapy. Patient will eventually benefit from aggressive weight loss but that will be very difficult to achieve. We will continue to follow. - Time Time with patient: 15-25 minutes - More than 50% of the time spent coordinating care, discussing management plans with involved caregivers. Management plans discussed with involved personnels. Medical decision making was of moderate to high complexity, patient's has multiple comorbidities.
[2019-11-14] MEDS: MONTELUKAST SODIUM 10 MG TABLET PO SCH (21:22)
[2019-11-14] MEDS: METOPROLOL SUCCINATE 25 MG TAB.SR.24H PO SCH (21:23)
--- NOTE | 2019-11-14 22:18 | PDOC PROGRESS REPORT ---
Subjective Progress Note for:: 11/14/19 Subjective:: Patient seen by the bedside, The blood sugar has been poorly controlled elevated the Solu-Medrol will be discontinued Reason For Visit: SOB Physical Exam Vital Signs: Temp Pulse Resp BP Pulse Ox 97.3 F 63 18 121/65 100 11/14/19 15:44 11/14/19 19:00 11/14/19 15:44 11/14/19 15:44 11/14/19 15:44 Intake & Output 11/13/19 11/14/19 11/15/19 06:59 06:59 06:59 Intake Total 1720 3112 880 Output Total 1550 1450 700 Balance 170 1662 180 Weight 164.6 kg 164.1 kg General appearance: PRESENT: no acute distress Eye exam: PRESENT: PERRLA Respiratory exam: PRESENT: clear to auscultation pennie Cardiovascular exam: PRESENT: +S1, +S2 GI/Abdominal exam: PRESENT: soft Results Laboratory Results: 11/14/19 05:47 11/14/19 05:47 11/14/19 11/14/19 05:47 05:47 WBC 6.3 RBC 4.02 Hgb 12.7 Hct 37.1 MCV 92 MCH 31.6 MCHC 34.3 RDW 14.1 H Plt Count 183 Sodium 133.3 L Potassium 4.7 Chloride 91 L Carbon Dioxide 24 Anion Gap 18 BUN 43 H Creatinine 0.74 Est GFR ( Amer) > 60 Glucose 393 H Calcium 8.1 L 11/11/19 11/11/19 11/12/19 16:42 16:42 10:45 Creatine Kinase 130 78 CK-MB (CK-2) 1.23 Troponin I < 0.012 NT-Pro-B Natriuret Pep 468 H 11/12/19 11/12/19 11/12/19 10:45 15:10 15:10 Creatine Kinase 75 CK-MB (CK-2) 1.29 1.58 Troponin I < 0.012 < 0.012 NT-Pro-B Natriuret Pep 11/12/19 11/12/19 21:50 21:50 Creatine Kinase 73 CK-MB (CK-2) 1.86 Troponin I < 0.012 NT-Pro-B Natriuret Pep Impressions: Chest X-Ray 11/11/19 16:40 IMPRESSION: NO ACUTE RADIOGRAPHIC FINDING IN THE CHEST. Tibia/Fibula X-Ray 11/11/19 21:52 IMPRESSION: There are no findings to suggest an acute fracture or subluxation within the right tibia or fibula. Venous Doppler Study 11/12/19 00:00 IMPRESSION: Negative for DVT or SVT, as imaged. Assessment & Plan - Diagnosis (1) Acute on chronic respiratory failure with hypoxia and hypercapnia Is this a current diagnosis for this admission?: Yes (2) Chronic UTI Is this a current diagnosis for this admission?: Yes (3) Chronic indwelling Sales catheter Is this a current diagnosis for this admission?: Yes (4) Chronic obstructive pulmonary disease with (acute) exacerbation Is this a current diagnosis for this admission?: Yes Plan: Discontinue Solu-Medrol (5) Obesity hypoventilation syndrome Is this a current diagnosis for this admission?: Yes - Time Time Spent with patient: 25-34 minutes
[2019-11-14] MEDS: INSULIN GLARGINE,HUM.REC.ANLOG 1,000 UNIT/10 ML VIAL SUBCUT SCH (22:42)
[2019-11-15 04:27] LABS: HEMOGLOBIN 12.6 g/dL (12.0-15.5); MEAN CORPUSCULAR HEMOGLOBIN 31.3 pg (27.0-33.4); MEAN CORPUSCULAR HGB CONC 34.2 g/dL (32.0-36.0); MEAN CORPUSCULAR VOLUME 92 fl (80-97); PLATELET COUNT 185 10^3/uL (150-450); RED BLOOD COUNT 4.03 10^6/uL (3.72-5.28); RED CELL DISTRIBUTION WIDTH 14.6 % (11.5-14.0); WHITE BLOOD COUNT 7.3 10^3/uL (4.0-10.5)
[2019-11-15 04:41] LABS: ANION GAP 8 (5-19); BLOOD UREA NITROGEN 48 mg/dL (7-20); CALCIUM 8.4 mg/dL (8.4-10.2); CARBON DIOXIDE 29 mmol/L (22-30); CHLORIDE 98 mmol/L (98-107); GLUCOSE 318 mg/dL (75-110); POTASSIUM 4.8 mmol/L (3.6-5.0)
[2019-11-15] MEDS: OXYCODONE HCL SR 10 MG TABLET PO SCH ×3 (05:27→22:34)
[2019-11-15] MEDS: GABAPENTIN 100 MG CAPSULE PO SCH ×3 (05:27→22:34)
[2019-11-15] MEDS: LEVOTHYROXINE SODIUM 0.088 MG TABLET PO SCH (05:27)
[2019-11-15] MEDS: IPRATROPIUM/ALBUTEROL 0.5-2.5 MG/3 ML AMPUL NEB SCH ×3 (08:39→21:03)
[2019-11-15] MEDS: FLUTICASONE/VILANTEROL 200-25 MCG/DOSE IH SCH (09:13)
[2019-11-15] MEDS: CALCIUM CARBONATE 500 MG TABLET PO SCH (09:15)
[2019-11-15] MEDS: HYDROXYCHLOROQUINE SULFATE 200 MG TABLET PO SCH ×2 (09:15→22:35)
[2019-11-15] MEDS: GLIMEPIRIDE 1 MG TABLET PO SCH (09:16)
[2019-11-15] MEDS: POTASSIUM CHLORIDE 10 MEQ TABLET.ER PO SCH ×2 (09:17→22:34)
[2019-11-15] MEDS: SENNOSIDES/DOCUSATE 8.6-50 MG 1 EACH TABLET PO SCH ×2 (09:19→17:08)
[2019-11-15] MEDS: AMLODIPINE BESYLATE 5 MG TABLET PO SCH (09:19)
[2019-11-15] MEDS: ALLOPURINOL 300 MG TABLET PO SCH (09:19)
[2019-11-15] MEDS: ACETAZOLAMIDE 250 MG TABLET PO SCH (09:20)
[2019-11-15] MEDS: BACLOFEN 10 MG TABLET PO SCH ×4 (09:21→22:33)
[2019-11-15] MEDS: PANTOPRAZOLE SODIUM 40 MG TABLET.DR PO SCH ×2 (09:21→22:35)
[2019-11-15] MEDS: PANTOT AC/MIN OIL/PET HY-PHL OINT 50 GM TOP SCH ×2 (09:22→18:11)
[2019-11-15] MEDS: POLYETHYLENE GLYCOL 3350 POWDER 17 GM/1 PACKET PO SCH ×2 (09:22→17:08)
[2019-11-15] MEDS: FUROSEMIDE INJ/PF 20 MG/2 ML SDV IV SCH ×2 (09:23→22:34)
[2019-11-15] MEDS: INSULIN LISPRO 100 UNIT/ML 3 ML VIAL SUBCUT SCH ×4 (09:34→22:33)
[2019-11-15] MEDS: CYCLOSPORINE 0.05% OPH EMULSIO 0.4 ML DROPERETTE OU SCH ×2 (09:35→22:35)
[2019-11-15] MEDS: CARBOXYMETHYLCELLULOSE SOD 0.5% 0.4 ML DROPERETTE OU SCH ×5 (09:58→22:35)
[2019-11-15] MEDS: ENOXAPARIN SODIUM INJ 40 MG/0.4 ML DISP.SYRIN SUBCUT SCH (09:58)
--- NOTE | 2019-11-15 14:46 | CDI QUERY ---
CDI Query CDI Review: Dear Provider, (name): To better reflect your patients severity of illness, morbidity, and resource utilization Please specify and document in the Progress Notes and Discharge Summary if you are monitoring / treating / evaluating any of the following conditions: Query Clinical indicators If you agree with the Cardiology Consult, please include the following information in your documentation and indicate if this condition was PRESENT ON ADMISSION: Acute diastolic (congestive) heart failure Is this a current diagnosis for this admission?: Yes Plan: Start on IV Lasix ED Note: Chief complaint of shortness of breath and cough x 2 days Hx of CHF BNP: 468 H&P: Acute diastolic (congestive) heart failure Is this a current diagnosis for this admission?: Yes Plan: Start on IV Lasix Per Printed Products Assembler Consult Progress Note: Diastolic congestive heart failure Qualifiers: Acute diastolic (congestive) heart failure Is this a current diagnosis for this admission?: Yes Plan: Start on IV Lasix nature of a condition. Thank you, Clinical Documentation Physician Advisors ABBY David RN, BSN RN Office [phone] Office [phone]
--- NOTE | 2019-11-15 14:52 | CDI QUERY ---
CDI Query CDI Review: Dear Provider: To better reflect your patients severity of illness, morbidity, and resource utilization Please specify and document in the Progress Notes and Discharge Summary if you are monitoring / treating / evaluating any of the following conditions: Query Clinical indicators If you agree with the Cardiology Consult, please include the following information in your documentation and indicate if this condition was PRESENT ON ADMISSION: Diastolic congestive heart failure Qualifiers: Heart failure chronicity: acute on chronic Qualified Code(s): I50.33 - Acute on chronic diastolic (congestive) heart failure Is this a current diagnosis for this admission?: Yes ED Note: Chief complaint of shortness of breath and cough x 2 days Hx of CHF BNP: 468 H&P: Acute diastolic (congestive) heart failure Is this a current diagnosis for this admission?: Yes Plan: Start on IV Lasix Per Home Teaching [employer] 8 Teacher Consult Progress Note: Diastolic congestive heart failure Qualifiers: Heart failure chronicity: acute on chronic Qualified Code(s): I50.33 - Acute on chronic diastolic (congestive) heart failure Is this a current diagnosis for this admission?: Yes nature of a condition. Thank you, Clinical Documentation Physician Advisors ABBY David RN, BSN RN [email or web address] Office [phone] Office [phone]
[2019-11-15 16:15] LABS: ARTERIAL BLOOD BASE EXCESS -0.3 mmol/L; ARTERIAL BLOOD H2CO3 1.25 mmol/L (1.05-1.35); ARTERIAL BLOOD HCO3 24.6 mmol/L (20-24); ARTERIAL BLOOD O2 SATURATION 95.7 % (94-98); ARTERIAL BLOOD PCO2 41.5 mmHg (35-45); ARTERIAL BLOOD PH 7.39 (7.35-7.45); ARTERIAL BLOOD PO2 79.9 mmHg (80-100); ARTERIAL BLOOD TOTAL CO2 25.9 mmol/L (21-25)
[2019-11-15 16:18] LABS: ARTERIAL BLOOD FIO2 2 L
--- NOTE | 2019-11-15 19:30 | PDOC PROGRESS REPORT ---
Subjective Progress Note for:: 11/15/19 Subjective:: Patient seen by the bedside, she is very stuporous, ABG done, pH 7.39, PO2 79.9, bicarbonate 24.6, PCO2 41.5, FiO2 2 L Reason For Visit: SOB Physical Exam Vital Signs: Temp Pulse Resp BP Pulse Ox 98.3 F 66 14 113/45 L 98 11/15/19 16:27 11/15/19 16:27 11/15/19 16:27 11/15/19 16:27 11/15/19 16:27 Intake & Output 11/14/19 11/15/19 11/16/19 06:59 06:59 06:59 Intake Total 3112 1920 360 Output Total 1450 8804 800 Balance 1662 55 -440 Weight 164.1 kg 164.1 kg 165.9 kg General appearance: PRESENT: no acute distress Eye exam: PRESENT: PERRLA Respiratory exam: PRESENT: clear to auscultation pennie Cardiovascular exam: PRESENT: +S1, +S2 GI/Abdominal exam: PRESENT: soft Neurological exam: PRESENT: alert Results Laboratory Results: 11/15/19 04:17 11/15/19 04:17 11/15/19 11/15/19 11/15/19 04:17 04:17 15:55 WBC 7.3 RBC 4.03 Hgb 12.6 Hct 37.0 MCV 92 MCH 31.3 MCHC 34.2 RDW 14.6 H Plt Count 185 Carbonic Acid 1.25 HCO3/H2CO3 Ratio 19:1 ABG pH 7.39 ABG pCO2 41.5 ABG pO2 79.9 L ABG HCO3 24.6 H ABG O2 Saturation 95.7 ABG Base Excess -0.3 FiO2 2 L Sodium 134.9 L Potassium 4.8 Chloride 98 Carbon Dioxide 29 Anion Gap 8 BUN 48 H Creatinine 1.10 Est GFR ( Amer) 59 L Glucose 318 H Calcium 8.4 11/11/19 11/11/19 11/12/19 16:42 16:42 10:45 Creatine Kinase 130 78 CK-MB (CK-2) 1.23 Troponin I < 0.012 NT-Pro-B Natriuret Pep 468 H 11/12/19 11/12/19 11/12/19 10:45 15:10 15:10 Creatine Kinase 75 CK-MB (CK-2) 1.29 1.58 Troponin I < 0.012 < 0.012 NT-Pro-B Natriuret Pep 11/12/19 11/12/19 21:50 21:50 Creatine Kinase 73 CK-MB (CK-2) 1.86 Troponin I < 0.012 NT-Pro-B Natriuret Pep Impressions: Chest X-Ray 11/11/19 16:40 IMPRESSION: NO ACUTE RADIOGRAPHIC FINDING IN THE CHEST. Tibia/Fibula X-Ray 11/11/19 21:52 IMPRESSION: There are no findings to suggest an acute fracture or subluxation within the right tibia or fibula. Venous Doppler Study 11/12/19 00:00 IMPRESSION: Negative for DVT or SVT, as imaged. Assessment & Plan - Diagnosis (1) Acute on chronic respiratory failure with hypoxia and hypercapnia Is this a current diagnosis for this admission?: Yes (2) Chronic UTI Is this a current diagnosis for this admission?: Yes (3) Chronic indwelling Sales catheter Is this a current diagnosis for this admission?: Yes (4) Chronic obstructive pulmonary disease with (acute) exacerbation Is this a current diagnosis for this admission?: Yes (5) Obesity hypoventilation syndrome Is this a current diagnosis for this admission?: Yes (6) Acute on chronic diastolic (congestive) heart failure Is this a current diagnosis for this admission?: Yes - Time Time Spent with patient: 15-24 minutes
[2019-11-15] MEDS ORDERED: INSULIN GLARGINE,HUM.REC.ANLOG 1,000 UNIT/10 ML VIAL SUBCUT SCH (22:00)
[2019-11-15] MEDS: INSULIN GLARGINE,HUM.REC.ANLOG 1,000 UNIT/10 ML VIAL SUBCUT SCH (22:34)
[2019-11-15] MEDS: MONTELUKAST SODIUM 10 MG TABLET PO SCH (22:35)
[2019-11-15] MEDS: METOPROLOL SUCCINATE 25 MG TAB.SR.24H PO SCH (22:35)
[2019-11-16] MEDS: GABAPENTIN 100 MG CAPSULE PO SCH ×3 (05:31→22:53)
[2019-11-16] MEDS: LEVOTHYROXINE SODIUM 0.088 MG TABLET PO SCH (05:32)
[2019-11-16] MEDS: OXYCODONE HCL SR 10 MG TABLET PO SCH ×3 (05:32→22:55)
[2019-11-16] MEDS: IPRATROPIUM/ALBUTEROL 0.5-2.5 MG/3 ML AMPUL NEB SCH ×3 (08:01→20:16)
[2019-11-16] MEDS: INSULIN LISPRO 100 UNIT/ML 3 ML VIAL SUBCUT SCH ×4 (08:34→22:46)
[2019-11-16] MEDS: FUROSEMIDE INJ/PF 20 MG/2 ML SDV IV SCH ×2 (09:38→22:47)
[2019-11-16] MEDS: ACETAZOLAMIDE 250 MG TABLET PO SCH (09:39)
[2019-11-16] MEDS: AMLODIPINE BESYLATE 5 MG TABLET PO SCH (09:39)
[2019-11-16] MEDS: POTASSIUM CHLORIDE 10 MEQ TABLET.ER PO SCH ×2 (09:39→22:52)
[2019-11-16] MEDS: ALLOPURINOL 300 MG TABLET PO SCH (09:39)
[2019-11-16] MEDS: PANTOPRAZOLE SODIUM 40 MG TABLET.DR PO SCH ×2 (09:39→22:54)
[2019-11-16] MEDS: HYDROXYCHLOROQUINE SULFATE 200 MG TABLET PO SCH ×2 (09:39→22:53)
[2019-11-16] MEDS: POLYETHYLENE GLYCOL 3350 POWDER 17 GM/1 PACKET PO SCH ×2 (09:40→17:19)
[2019-11-16] MEDS: BACLOFEN 10 MG TABLET PO SCH ×4 (09:40→22:53)
[2019-11-16] MEDS: SENNOSIDES/DOCUSATE 8.6-50 MG 1 EACH TABLET PO SCH ×2 (09:40→17:19)
[2019-11-16] MEDS: FLUTICASONE/VILANTEROL 200-25 MCG/DOSE IH SCH (09:40)
[2019-11-16] MEDS: CALCIUM CARBONATE 500 MG TABLET PO SCH (09:40)
[2019-11-16] MEDS: PANTOT AC/MIN OIL/PET HY-PHL OINT 50 GM TOP SCH ×2 (09:40→17:19)
[2019-11-16] MEDS: GLIMEPIRIDE 1 MG TABLET PO SCH (09:41)
[2019-11-16] MEDS: CARBOXYMETHYLCELLULOSE SOD 0.5% 0.4 ML DROPERETTE OU SCH ×5 (09:42→23:04)
[2019-11-16] MEDS: CYCLOSPORINE 0.05% OPH EMULSIO 0.4 ML DROPERETTE OU SCH ×2 (09:43→23:01)
[2019-11-16] MEDS: ENOXAPARIN SODIUM INJ 40 MG/0.4 ML DISP.SYRIN SUBCUT SCH (09:54)
--- NOTE | 2019-11-16 10:03 | PDOC PROGRESS REPORT ---
Subjective Progress Note for:: 11/16/19 Subjective:: 11/14/2019 patient denies any new symptoms. Patient claims that she feels better. Patient claims she is no longer using BiPAP therapy because of difficulty with its use. She categorically denies considering this. Patient seems to be doing better with gradual improvement. Pt is denying any chest arm or neck discomfort. Patient denying any PND, orthopnea. Patient denied any sustained palpitations, dizziness, syncope, near syncope. Patient denying any fever chills. Patient denying any other significant discomfort. Patient is maintaining sinus rhythm. Review of systems: Rest review of systems negative. Medications: Medications have been reviewed. 11/16/2019: Patient is noted to be lethargic and sleeping all the time. Arterial blood gases from yesterday shows normal PCO2. Exact etiology of sleepiness is not clear. I am told by the nurse that patient has been refusing medications. She does not want to wear BiPAP therapy. Reason For Visit: SOB Physical Exam Vital Signs: Temp Pulse Resp BP Pulse Ox 97.8 F 70 18 167/54 H 98 11/16/19 03:00 11/16/19 08:01 11/16/19 08:01 11/16/19 03:00 11/16/19 08:01 Intake & Output 11/15/19 11/16/19 11/17/19 06:59 06:59 06:59 Intake Total 1920 360 Output Total 1975 1525 Balance -55 -1165 Weight 164.1 kg 165.3 kg Exam: GENERAL: well-nourished and in no acute distress. Alert. Patient noted to be lethargic. Orientation not checked. HEAD: Atraumatic, normocephalic. EYES: MADHAV, sclera anicteric, conjunctiva are normal. ENT: Moist mucous membranes. No oral ulcerations or bleeding gums noted. No obvious ear, nose or throat abnormalities noted. NECK: supple without lymphadenopathy. Trachea is central. No cervical or axillary lymphadenopathy noted. Carotids are 2+, JVD WNL LUNGS: Breath sounds clear bilaterally. No wheezes rales or rhonchi noted. No significant dullness noted on percussion. CHEST: Palpation of the chest wall shows no significant chest wall tenderness. 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 ABDOMEN: Soft, no significant tenderness appreciated, normoactive bowel sounds. No guarding, no rebound. No rigidity noted . No masses appreciated. EXTREMITIES: Pedal pulses are 1-2+, no calf tenderness noted. No clubbing or cyanosis. 1+ pedal edema noted NEUROLOGICAL: Focused neurological exam showed no significant neurologic deficit. Normal speech, no focal weakness appreciated. PSYCH: Psych exam not performed. SKIN: No significant ecchymosis, skin is noted to be warm. MUSCULOSKELETAL EXAM: No significant acute joint swelling noted. Results Laboratory Results: 11/15/19 04:17 11/15/19 04:17 11/15/19 15:55 Carbonic Acid 1.25 HCO3/H2CO3 Ratio 19:1 ABG pH 7.39 ABG pCO2 41.5 ABG pO2 79.9 L ABG HCO3 24.6 H ABG O2 Saturation 95.7 ABG Base Excess -0.3 FiO2 2 L 11/11/19 11/11/19 11/12/19 16:42 16:42 10:45 Creatine Kinase 130 78 CK-MB (CK-2) 1.23 Troponin I < 0.012 NT-Pro-B Natriuret Pep 468 H 11/12/19 11/12/19 11/12/19 10:45 15:10 15:10 Creatine Kinase 75 CK-MB (CK-2) 1.29 1.58 Troponin I < 0.012 < 0.012 NT-Pro-B Natriuret Pep 11/12/19 11/12/19 21:50 21:50 Creatine Kinase 73 CK-MB (CK-2) 1.86 Troponin I < 0.012 NT-Pro-B Natriuret Pep EKG Comments: Sinus rhythm no significant tachyarrhythmia or bradycardia arrhythmias noted. Impressions: Chest X-Ray 11/11/19 16:40 IMPRESSION: NO ACUTE RADIOGRAPHIC FINDING IN THE CHEST. Tibia/Fibula X-Ray 11/11/19 21:52 IMPRESSION: There are no findings to suggest an acute fracture or subluxation within the right tibia or fibula. Venous Doppler Study 11/12/19 00:00 IMPRESSION: Negative for DVT or SVT, as imaged. Assessment & Plan - Diagnosis (1) Hypercapnic respiratory failure Qualifiers: Chronicity: acute on chronic Qualified Code(s): J96.22 - Acute and chronic respiratory failure with hypercapnia Is this a current diagnosis for this admission?: Yes (2) Hypoxia Is this a current diagnosis for this admission?: Yes (3) Diastolic congestive heart failure Qualifiers: Heart failure chronicity: acute on chronic Qualified Code(s): I50.33 - Acute on chronic diastolic (congestive) heart failure Is this a current diagnosis for this admission?: Yes (4) Hypertension Qualifiers: Hypertension type: essential hypertension Qualified Code(s): I10 - Essential (primary) hypertension Is this a current diagnosis for this admission?: Yes (5) Obesity hypoventilation syndrome Is this a current diagnosis for this admission?: Yes (6) Morbid obesity Is this a current diagnosis for this admission?: Yes - Notes Notes: Patient remained stable from cardiac standpoint. Patient mainly has metabolic problems going on. No angina. CHF seems fairly compensated and diastolic plus right-sided heart failure. At this point will sign off. Please reconsult if needed. - Time Time with patient: 15-25 minutes Medications reviewed and adjusted accordingly: Yes
--- NOTE | 2019-11-16 22:01 | PDOC PROGRESS REPORT ---
Subjective Progress Note for:: 11/16/19 Subjective:: Patient seen by the bedside, she is awake, the nurse is concerned about UTI, she has chronic indwelling suprapubic catheter with chronic colonization I do not see any value in doing urine culture. It will be reasonable if we can get a clean-catch urine specimen Reason For Visit: SOB Physical Exam Vital Signs: Temp Pulse Resp BP Pulse Ox 97.9 F 88 20 147/57 H 98 11/16/19 19:34 11/16/19 19:34 11/16/19 19:34 11/16/19 19:34 11/16/19 19:34 Intake & Output 11/15/19 11/16/19 11/17/19 06:59 06:59 06:59 Intake Total 2828 955 6534 Output Total 1975 1525 1600 Balance -55 -1165 -500 Weight 164.1 kg 165.3 kg 165 kg General appearance: PRESENT: no acute distress Eye exam: PRESENT: PERRLA Respiratory exam: PRESENT: clear to auscultation pennie Cardiovascular exam: PRESENT: +S1, +S2 Neurological exam: PRESENT: alert Results Laboratory Results: 11/15/19 04:17 11/15/19 04:17 11/11/19 11/11/19 11/12/19 16:42 16:42 10:45 Creatine Kinase 130 78 CK-MB (CK-2) 1.23 Troponin I < 0.012 NT-Pro-B Natriuret Pep 468 H 11/12/19 11/12/19 11/12/19 10:45 15:10 15:10 Creatine Kinase 75 CK-MB (CK-2) 1.29 1.58 Troponin I < 0.012 < 0.012 NT-Pro-B Natriuret Pep 11/12/19 11/12/19 21:50 21:50 Creatine Kinase 73 CK-MB (CK-2) 1.86 Troponin I < 0.012 NT-Pro-B Natriuret Pep Impressions: Chest X-Ray 11/11/19 16:40 IMPRESSION: NO ACUTE RADIOGRAPHIC FINDING IN THE CHEST. Tibia/Fibula X-Ray 11/11/19 21:52 IMPRESSION: There are no findings to suggest an acute fracture or subluxation within the right tibia or fibula. Venous Doppler Study 11/12/19 00:00 IMPRESSION: Negative for DVT or SVT, as imaged. Assessment & Plan - Diagnosis (1) Acute on chronic respiratory failure with hypoxia and hypercapnia Is this a current diagnosis for this admission?: Yes (2) Chronic UTI Is this a current diagnosis for this admission?: Yes (3) Chronic indwelling Sales catheter Is this a current diagnosis for this admission?: Yes (4) Chronic obstructive pulmonary disease with (acute) exacerbation Is this a current diagnosis for this admission?: Yes (5) Obesity hypoventilation syndrome Is this a current diagnosis for this admission?: Yes (6) Acute on chronic diastolic (congestive) heart failure Is this a current diagnosis for this admission?: Yes - Time Time Spent with patient: Less than 15 minutes
[2019-11-16] MEDS: INSULIN GLARGINE,HUM.REC.ANLOG 1,000 UNIT/10 ML VIAL SUBCUT SCH (22:46)
[2019-11-16] MEDS: METOPROLOL SUCCINATE 25 MG TAB.SR.24H PO SCH (22:54)
[2019-11-16] MEDS: MONTELUKAST SODIUM 10 MG TABLET PO SCH (22:54)
[2019-11-17] MEDS: LEVOTHYROXINE SODIUM 0.088 MG TABLET PO SCH (05:58)
[2019-11-17] MEDS: OXYCODONE HCL SR 10 MG TABLET PO SCH ×3 (05:58→21:51)
[2019-11-17] MEDS: GABAPENTIN 100 MG CAPSULE PO SCH ×3 (05:59→21:50)
[2019-11-17] MEDS: IPRATROPIUM/ALBUTEROL 0.5-2.5 MG/3 ML AMPUL NEB SCH ×3 (08:18→20:22)
[2019-11-17] MEDS: PANTOT AC/MIN OIL/PET HY-PHL OINT 50 GM TOP SCH ×3 (10:02→17:50)
[2019-11-17] MEDS: FLUTICASONE/VILANTEROL 200-25 MCG/DOSE IH SCH (10:02)
[2019-11-17] MEDS: AMLODIPINE BESYLATE 5 MG TABLET PO SCH (10:03)
[2019-11-17] MEDS: CYCLOSPORINE 0.05% OPH EMULSIO 0.4 ML DROPERETTE OU SCH ×2 (10:03→21:52)
[2019-11-17] MEDS: CARBOXYMETHYLCELLULOSE SOD 0.5% 0.4 ML DROPERETTE OU SCH ×5 (10:03→21:55)
[2019-11-17] MEDS: POTASSIUM CHLORIDE 10 MEQ TABLET.ER PO SCH ×2 (10:03→21:50)
[2019-11-17] MEDS: HYDROXYCHLOROQUINE SULFATE 200 MG TABLET PO SCH ×2 (10:04→21:49)
[2019-11-17] MEDS: BACLOFEN 10 MG TABLET PO SCH ×4 (10:04→21:50)
[2019-11-17] MEDS: ACETAZOLAMIDE 250 MG TABLET PO SCH (10:04)
[2019-11-17] MEDS: GLIMEPIRIDE 1 MG TABLET PO SCH (10:04)
[2019-11-17] MEDS: CALCIUM CARBONATE 500 MG TABLET PO SCH (10:05)
[2019-11-17] MEDS: ALLOPURINOL 300 MG TABLET PO SCH (10:05)
[2019-11-17] MEDS: PANTOPRAZOLE SODIUM 40 MG TABLET.DR PO SCH ×2 (10:05→21:51)
[2019-11-17] MEDS: ENOXAPARIN SODIUM INJ 40 MG/0.4 ML DISP.SYRIN SUBCUT SCH ×2 (10:05→10:29)
[2019-11-17] MEDS: SENNOSIDES/DOCUSATE 8.6-50 MG 1 EACH TABLET PO SCH ×2 (10:06→18:07)
[2019-11-17] MEDS: POLYETHYLENE GLYCOL 3350 POWDER 17 GM/1 PACKET PO SCH ×2 (10:06→18:07)
[2019-11-17] MEDS ORDERED: BACLOFEN 10 MG TABLET PO ONE (11:00)
[2019-11-17] MEDS: INSULIN LISPRO 100 UNIT/ML 3 ML VIAL SUBCUT SCH ×4 (11:43→21:52)
[2019-11-17] MEDS: FUROSEMIDE INJ/PF 20 MG/2 ML SDV IV SCH ×2 (11:50→21:54)
[2019-11-17] MEDS: CETIRIZINE 10 MG TABLET PO PRN (12:03)
[2019-11-17] MEDS: METOPROLOL SUCCINATE 25 MG TAB.SR.24H PO SCH (21:49)
[2019-11-17] MEDS: MONTELUKAST SODIUM 10 MG TABLET PO SCH (21:50)
[2019-11-17] MEDS: INSULIN GLARGINE,HUM.REC.ANLOG 1,000 UNIT/10 ML VIAL SUBCUT SCH (21:53)
--- NOTE | 2019-11-17 22:33 | PDOC PROGRESS REPORT ---
Subjective Progress Note for:: 11/17/19 Subjective:: Patient seen by the bedside, she is more alert today,He complain of a headache, neck pain, he said he fell in the facility [facility] [place], CT head and neck is ordered Reason For Visit: SOB Physical Exam Vital Signs: Temp Pulse Resp BP Pulse Ox 97.5 F 77 18 141/48 H 97 11/17/19 19:30 11/17/19 20:22 11/17/19 20:22 11/17/19 19:30 11/17/19 20:22 Intake & Output 11/16/19 11/17/19 11/18/19 06:59 06:59 06:59 Intake Total 360 1100 960 Output Total 1525 2600 675 Balance -1165 -1500 285 Weight 165.3 kg 162.6 kg General appearance: PRESENT: no acute distress Eye exam: PRESENT: PERRLA Respiratory exam: PRESENT: clear to auscultation pennie Cardiovascular exam: PRESENT: +S1, +S2 GI/Abdominal exam: PRESENT: soft Neurological exam: PRESENT: alert Results Laboratory Results: 11/15/19 04:17 11/15/19 04:17 11/12/19 01:17 Blood Blood Culture - Final NO GROWTH IN 5 DAYS 11/11/19 16:42 Blood Blood Culture - Final NO GROWTH IN 5 DAYS 11/11/19 11/11/19 11/12/19 16:42 16:42 10:45 Creatine Kinase 130 78 CK-MB (CK-2) 1.23 Troponin I < 0.012 NT-Pro-B Natriuret Pep 468 H 11/12/19 11/12/19 11/12/19 10:45 15:10 15:10 Creatine Kinase 75 CK-MB (CK-2) 1.29 1.58 Troponin I < 0.012 < 0.012 NT-Pro-B Natriuret Pep 11/12/19 11/12/19 21:50 21:50 Creatine Kinase 73 CK-MB (CK-2) 1.86 Troponin I < 0.012 NT-Pro-B Natriuret Pep Impressions: Chest X-Ray 11/11/19 16:40 IMPRESSION: NO ACUTE RADIOGRAPHIC FINDING IN THE CHEST. Tibia/Fibula X-Ray 11/11/19 21:52 IMPRESSION: There are no findings to suggest an acute fracture or subluxation within the right tibia or fibula. Venous Doppler Study 11/12/19 00:00 IMPRESSION: Negative for DVT or SVT, as imaged. Assessment & Plan - Diagnosis (1) Acute on chronic respiratory failure with hypoxia and hypercapnia Is this a current diagnosis for this admission?: Yes (2) Chronic UTI Is this a current diagnosis for this admission?: Yes (3) Chronic indwelling Sales catheter Is this a current diagnosis for this admission?: Yes (4) Chronic obstructive pulmonary disease with (acute) exacerbation Is this a current diagnosis for this admission?: Yes (5) Obesity hypoventilation syndrome Is this a current diagnosis for this admission?: Yes (6) Acute on chronic diastolic (congestive) heart failure Is this a current diagnosis for this admission?: Yes - Time Time Spent with patient: 25-34 minutes Level of Care: IMCU
[2019-11-18] MEDS: GABAPENTIN 100 MG CAPSULE PO SCH ×3 (05:04→21:53)
[2019-11-18] MEDS: OXYCODONE HCL SR 10 MG TABLET PO SCH ×3 (05:04→21:54)
[2019-11-18] MEDS: LEVOTHYROXINE SODIUM 0.088 MG TABLET PO SCH (05:05)
[2019-11-18] MEDS: IPRATROPIUM/ALBUTEROL 0.5-2.5 MG/3 ML AMPUL NEB SCH ×3 (08:19→20:26)
[2019-11-18] MEDS: INSULIN LISPRO 100 UNIT/ML 3 ML VIAL SUBCUT SCH ×4 (08:27→22:00)
[2019-11-18] MEDS: POLYETHYLENE GLYCOL 3350 POWDER 17 GM/1 PACKET PO SCH ×2 (09:30→17:03)
[2019-11-18] MEDS: ENOXAPARIN SODIUM INJ 40 MG/0.4 ML DISP.SYRIN SUBCUT SCH (09:30)
[2019-11-18] MEDS: SENNOSIDES/DOCUSATE 8.6-50 MG 1 EACH TABLET PO SCH ×2 (09:31→17:03)
[2019-11-18] MEDS: PANTOT AC/MIN OIL/PET HY-PHL OINT 50 GM TOP SCH ×2 (09:32→17:03)
[2019-11-18] MEDS: FLUTICASONE/VILANTEROL 200-25 MCG/DOSE IH SCH (09:32)
[2019-11-18] MEDS: AMLODIPINE BESYLATE 5 MG TABLET PO SCH (09:33)
[2019-11-18] MEDS: HYDROXYCHLOROQUINE SULFATE 200 MG TABLET PO SCH ×2 (09:33→21:54)
[2019-11-18] MEDS: CALCIUM CARBONATE 500 MG TABLET PO SCH (09:33)
[2019-11-18] MEDS: ALLOPURINOL 300 MG TABLET PO SCH (09:33)
[2019-11-18] MEDS: PANTOPRAZOLE SODIUM 40 MG TABLET.DR PO SCH ×2 (09:33→21:53)
[2019-11-18] MEDS: BACLOFEN 10 MG TABLET PO SCH ×3 (09:33→17:05)
[2019-11-18] MEDS: GLIMEPIRIDE 1 MG TABLET PO SCH (09:34)
[2019-11-18] MEDS: ACETAZOLAMIDE 250 MG TABLET PO SCH (09:34)
[2019-11-18] MEDS: FUROSEMIDE INJ/PF 20 MG/2 ML SDV IV SCH ×2 (09:35→21:55)
[2019-11-18] MEDS: POTASSIUM CHLORIDE 10 MEQ TABLET.ER PO SCH ×2 (09:35→21:53)
[2019-11-18] MEDS: CARBOXYMETHYLCELLULOSE SOD 0.5% 0.4 ML DROPERETTE OU SCH ×5 (09:35→22:02)
[2019-11-18] MEDS: CYCLOSPORINE 0.05% OPH EMULSIO 0.4 ML DROPERETTE OU SCH ×2 (09:36→22:02)
[2019-11-18] MEDS: ONDANSETRON 4 MG TAB.RAPDIS PO PRN (09:53)
--- NOTE | 2019-11-18 14:05 | RADIOLOGY REPORT (SQ) ---
EXAM DESCRIPTION: CT HEAD WITHOUT COMPLETED DATE/TIME: 11/18/2019 11:28 am REASON FOR STUDY: fall at home COMPARISON: CT head 05/19/2018, 05/04/2018. TECHNIQUE: Axial images acquired through the brain without intravenous contrast. Images reviewed wi th bone, brain and subdural windows. Images stored on PACS. All CT scanners at this facility use dose modulation, iterative reconstruction, and/or weight based d osing when appropriate to reduce radiation dose to as low as reasonably achievable (ALARA). [facility]: Dose Right [facility]: CareDose [facility]: Dose Right [facility]: Teradose 4D [facility]: Smart [employer] RADIATION DOSE: CT Rad equipment meets quality standard of care and radiation dose reduction techniq ues were employed. CTDIvol: 53.2 mGy. DLP: 991 mGy-cm. mGy. LIMITATIONS: None. FINDINGS: VENTRICLES: Normal size and contour. CEREBRUM: No mass effect. No hemorrhage. No midline shift. Normal agmbino/white matter differentiatio n. No evidence for acute territorial infarction. CEREBELLUM: No mass effect. No hemorrhage. No alteration of density. No evidence for acute infarct ion. EXTRAAXIAL SPACES: No fluid collections. ORBITS AND GLOBE: Symmetrical contour of the globes. CALVARIUM: No depressed skull fracture. PARANASAL SINUSES: No air-fluid level. SOFT TISSUES: No hematoma. IMPRESSION: No acute intracranial hemorrhage or depressed calvarial fracture. EVIDENCE OF ACUTE STROKE: NO. COMMENT: Quality ID # [id number]: Final reports with documentation of one or more dose reduction techniques (e.g., Automated exposure control, adjustment of the mA and/or kV according to patient size, use of iterative reconstruction technique) TECHNICAL DOCUMENTATION: JOB ID: [id number] [id number] [employer] All Rights Reserved Reading location - IP/workstation name: [email or web address]
--- NOTE | 2019-11-18 14:11 | RADIOLOGY REPORT (SQ) ---
EXAM DESCRIPTION: CT CERVICAL SPINE WITHOUT COMPLETED DATE/TIME: 11/18/2019 11:28 am REASON FOR STUDY: fall at home COMPARISON: Cervical spine x-ray 09/18/2016. TECHNIQUE: Axial images acquired through the cervical spine without intravenous contrast. Images re viewed with lung, soft tissue and bone windows. Reconstructed coronal and sagittal MPR images review ed. Images stored on PACS. All CT scanners at this facility use dose modulation, iterative reconstruction, and/or weight based d osing when appropriate to reduce radiation dose to as low as reasonably achievable (ALARA). [facility]: Dose Right [facility]: CareDose [facility]: Dose Right [facility]: Teradose 4D [facility]: [employer] RADIATION DOSE: CT Rad equipment meets quality standard of care and radiation dose reduction techniq ues were employed. CTDIvol: 33.5 mGy. DLP: 669 mGy-cm. mGy. LIMITATIONS: None. FINDINGS: ALIGNMENT: There is straightening of the cervical lordosis. MINERALIZATION: Normal. VERTEBRAL BODIES: No fractures or dislocation. DISCS: There is multilevel degenerative disc disease with osteophytosis. FACETS, LATERAL MASSES, POSTERIOR ELEMENTS: No fractures. No dislocation. There is multilevel facet arthropathy. HARDWARE: None in the spine. VISUALIZED RIBS: No fractures. LUNG APICES AND SOFT TISSUES: No acute findings. IMPRESSION: No acute fracture at the cervical spine. Degenerative changes. TECHNICAL DOCUMENTATION: JOB ID: [id number] [place]-64 Quality ID # [id number]: Final reports with documentation of one or more dose reduction techniques (e.g., Au tomated exposure control, adjustment of the mA and/or kV according to patient size, use of iterative reconstruction technique) 2010 [employer]- All Rights Reserved Reading location - IP/workstation name: [email or web address]
--- NOTE | 2019-11-18 18:55 | PDOC PROGRESS REPORT ---
Subjective Progress Note for:: 11/18/19 Subjective:: Patient seen by the bedside, she is very reluctant to return to the nursing hyperemia she is afraid, the biggest challenge for this patient is inactivity, very sedentary. She has indwelling suprapubic catheter very obese patient, the urine culture is growing gram-negative renee most likely this is chronic colonization rather than a true infection Reason For Visit: SOB Physical Exam Vital Signs: Temp Pulse Resp BP Pulse Ox 98.0 F 81 16 140/56 H 97 11/18/19 15:48 11/18/19 15:48 11/18/19 15:48 11/18/19 15:48 11/18/19 15:48 Intake & Output 11/17/19 11/18/19 11/19/19 06:59 06:59 06:59 Intake Total 1100 1640 650 Output Total 2600 1375 300 Balance -1500 265 350 Weight 162.6 kg 160.8 kg General appearance: PRESENT: no acute distress Eye exam: PRESENT: PERRLA Respiratory exam: PRESENT: clear to auscultation pennie Cardiovascular exam: PRESENT: +S1, +S2 GI/Abdominal exam: PRESENT: soft Neurological exam: PRESENT: alert Results Laboratory Results: 11/15/19 04:17 11/15/19 04:17 11/11/19 11/11/19 11/12/19 16:42 16:42 10:45 Creatine Kinase 130 78 CK-MB (CK-2) 1.23 Troponin I < 0.012 NT-Pro-B Natriuret Pep 468 H 11/12/19 11/12/19 11/12/19 10:45 15:10 15:10 Creatine Kinase 75 CK-MB (CK-2) 1.29 1.58 Troponin I < 0.012 < 0.012 NT-Pro-B Natriuret Pep 11/12/19 11/12/19 21:50 21:50 Creatine Kinase 73 CK-MB (CK-2) 1.86 Troponin I < 0.012 NT-Pro-B Natriuret Pep Impressions: Chest X-Ray 11/11/19 16:40 IMPRESSION: NO ACUTE RADIOGRAPHIC FINDING IN THE CHEST. Tibia/Fibula X-Ray 11/11/19 21:52 IMPRESSION: There are no findings to suggest an acute fracture or subluxation within the right tibia or fibula. Venous Doppler Study 11/12/19 00:00 IMPRESSION: Negative for DVT or SVT, as imaged. Cervical Spine CT 11/18/19 00:00 IMPRESSION: No acute fracture at the cervical spine. Degenerative changes. Head CT 11/18/19 00:00 IMPRESSION: No acute intracranial hemorrhage or depressed calvarial fracture. EVIDENCE OF ACUTE STROKE: NO. Assessment & Plan - Diagnosis (1) Acute on chronic respiratory failure with hypoxia and hypercapnia Is this a current diagnosis for this admission?: Yes (2) Chronic UTI Is this a current diagnosis for this admission?: Yes (3) Chronic indwelling Sales catheter Is this a current diagnosis for this admission?: Yes (4) Chronic obstructive pulmonary disease with (acute) exacerbation Is this a current diagnosis for this admission?: Yes (5) Obesity hypoventilation syndrome Is this a current diagnosis for this admission?: Yes (6) Acute on chronic diastolic (congestive) heart failure Is this a current diagnosis for this admission?: Yes - Time Time Spent with patient: 25-34 minutes Level of Care: IMCU - Plan Summary Plan Summary: She will continue present line of management, discontinue baclofen, follow-up on the urine culture results, Obtain CBC, metabolic panel to determine suitability for discharge
[2019-11-18] MEDS: METOPROLOL SUCCINATE 25 MG TAB.SR.24H PO SCH (21:53)
[2019-11-18] MEDS: MONTELUKAST SODIUM 10 MG TABLET PO SCH (21:53)
[2019-11-18] MEDS: INSULIN GLARGINE,HUM.REC.ANLOG 1,000 UNIT/10 ML VIAL SUBCUT SCH (21:56)
[2019-11-19] MEDS: GABAPENTIN 100 MG CAPSULE PO SCH ×3 (05:12→22:01)
[2019-11-19] MEDS: OXYCODONE HCL SR 10 MG TABLET PO SCH ×3 (05:12→22:00)
[2019-11-19] MEDS: LEVOTHYROXINE SODIUM 0.088 MG TABLET PO SCH (05:12)
[2019-11-19 07:04] LABS: ABSOLUTE EOSINOPHILS # (AUTO) 0.4 10^3/uL (0.0-0.6); ABSOLUTE LYMPHOCYTES (AUTO) 1.6 10^3/uL (0.5-4.7); ABSOLUTE MONOCYTES (AUTO) 0.9 10^3/uL (0.1-1.4); ABSOLUTE NEUT (AUTO) 6.5 10^3/uL (1.7-8.2); BASOPHILS % (AUTO) 0.4 % (0-2); EOSINOPHILS % (AUTO) 4.5 % (0-6); HEMATOCRIT 37.9 % (36.0-47.0); HEMOGLOBIN 12.8 g/dL (12.0-15.5); LYMPHOCYTES % (AUTO) 17.2 % (13-45); MEAN CORPUSCULAR HEMOGLOBIN 31.1 pg (27.0-33.4); MEAN CORPUSCULAR HGB CONC 33.7 g/dL (32.0-36.0); MEAN CORPUSCULAR VOLUME 92 fl (80-97); MONOCYTES % (AUTO) 9.4 % (3-13); PLATELET COUNT 205 10^3/uL (150-450); RED CELL DISTRIBUTION WIDTH 14.5 % (11.5-14.0); SEGMENTED NEUTROPHILS % (AUTO) 68.5 % (42-78); TOTAL CELLS COUNTED % (AUTO) 100 %; WHITE BLOOD COUNT 9.4 10^3/uL (4.0-10.5)
[2019-11-19 07:22] LABS: ALKALINE PHOSPHATASE 80 U/L (38-126); ANION GAP 6 (5-19); ASPARTATE AMINO TRANSFERASE 17 U/L (14-36); BILIRUBIN,TOTAL 0.5 mg/dL (0.2-1.3); BLOOD UREA NITROGEN 20 mg/dL (7-20); CALCIUM 8.5 mg/dL (8.4-10.2); CARBON DIOXIDE 27 mmol/L (22-30); CHLORIDE 103 mmol/L (98-107); GLUCOSE 184 mg/dL (75-110); TOTAL PROTEIN 5.8 g/dL (6.3-8.2)
[2019-11-19] MEDS: INSULIN LISPRO 100 UNIT/ML 3 ML VIAL SUBCUT SCH ×4 (07:58→21:59)
[2019-11-19] MEDS: IPRATROPIUM/ALBUTEROL 0.5-2.5 MG/3 ML AMPUL NEB SCH ×3 (08:47→19:38)
[2019-11-19] MEDS: GLIMEPIRIDE 1 MG TABLET PO SCH (10:27)
[2019-11-19] MEDS: CALCIUM CARBONATE 500 MG TABLET PO SCH (10:28)
[2019-11-19] MEDS: POTASSIUM CHLORIDE 10 MEQ TABLET.ER PO SCH ×2 (10:28→22:01)
[2019-11-19] MEDS: AMLODIPINE BESYLATE 5 MG TABLET PO SCH (10:29)
[2019-11-19] MEDS: SENNOSIDES/DOCUSATE 8.6-50 MG 1 EACH TABLET PO SCH ×2 (10:29→17:46)
[2019-11-19] MEDS: FUROSEMIDE INJ/PF 20 MG/2 ML SDV IV SCH ×2 (10:30→22:02)
[2019-11-19] MEDS: PANTOPRAZOLE SODIUM 40 MG TABLET.DR PO SCH ×2 (10:30→22:02)
[2019-11-19] MEDS: ENOXAPARIN SODIUM INJ 40 MG/0.4 ML DISP.SYRIN SUBCUT SCH (10:30)
[2019-11-19] MEDS: ALLOPURINOL 300 MG TABLET PO SCH (10:30)
[2019-11-19] MEDS: POLYETHYLENE GLYCOL 3350 POWDER 17 GM/1 PACKET PO SCH ×2 (10:31→17:46)
[2019-11-19] MEDS: PANTOT AC/MIN OIL/PET HY-PHL OINT 50 GM TOP SCH ×2 (10:32→18:02)
[2019-11-19] MEDS: FLUTICASONE/VILANTEROL 200-25 MCG/DOSE IH SCH (10:32)
[2019-11-19] MEDS: CARBOXYMETHYLCELLULOSE SOD 0.5% 0.4 ML DROPERETTE OU SCH ×5 (10:34→22:05)
[2019-11-19] MEDS: SODIUM CHLORIDE NASAL SPRAY 44 ML NASL PRN ×2 (10:34→22:40)
[2019-11-19] MEDS: HYDROXYCHLOROQUINE SULFATE 200 MG TABLET PO SCH ×2 (10:38→22:03)
[2019-11-19] MEDS: CYCLOSPORINE 0.05% OPH EMULSIO 0.4 ML DROPERETTE OU SCH ×2 (10:42→22:39)
[2019-11-19] MEDS ORDERED: ACETAMINOPHEN 325 MG TABLET PO PRN (15:08)
[2019-11-19] MEDS: OXYCODONE HCL IR 5 MG TABLET PO PRN (15:43)
--- NOTE | 2019-11-19 19:08 | PDOC PROGRESS REPORT ---
Subjective Progress Note for:: 11/19/19 Subjective:: Patient seen by the bedside, the urine culture grew Pseudomonas, it is probably colonization but patient is symptomatic with malaise, lack of appetite, abdominal pain, nausea, the bacteria is pansensitive to all antibiotic tested, she will be treated with unconventional antibiotic gentamicin, pharmacy to dose, I will not use the, fluoroquinolones because of the risk of resistance developing. She also has hematoma of the right leg from the fall she sustained in the long term Reason For Visit: SOB Physical Exam Vital Signs: Temp Pulse Resp BP Pulse Ox 97.8 F 79 20 110/44 L 99 11/19/19 16:02 11/19/19 16:02 11/19/19 16:02 11/19/19 16:02 11/19/19 16:02 Intake & Output 11/18/19 11/19/19 11/20/19 06:59 06:59 06:59 Intake Total 1640 650 440 Output Total 1375 1100 600 Balance 265 -450 -160 Weight 160.8 kg General appearance: PRESENT: no acute distress Eye exam: PRESENT: PERRLA Respiratory exam: PRESENT: clear to auscultation pennie Cardiovascular exam: PRESENT: +S1, +S2 GI/Abdominal exam: PRESENT: soft Neurological exam: PRESENT: alert Results Laboratory Results: 11/19/19 06:42 11/19/19 06:42 11/19/19 11/19/19 11/19/19 04:25 06:42 06:42 WBC 9.4 RBC 4.10 Hgb 12.8 Hct 37.9 MCV 92 MCH 31.1 MCHC 33.7 RDW 14.5 H Plt Count 205 Seg Neutrophils % 68.5 Sodium Cancelled 135.9 L Potassium Cancelled 4.0 Chloride Cancelled 103 Carbon Dioxide Cancelled 27 Anion Gap Cancelled 6 BUN Cancelled 20 Creatinine Cancelled 0.91 Est GFR ( Amer) Cancelled > 60 Est GFR (Non-Af Amer) Cancelled Glucose Cancelled 184 H Calcium Cancelled 8.5 Total Bilirubin Cancelled 0.5 AST Cancelled 17 Alkaline Phosphatase Cancelled 80 Total Protein Cancelled 5.8 L Albumin Cancelled 3.0 L 11/11/19 11/11/19 11/12/19 16:42 16:42 10:45 Creatine Kinase 130 78 CK-MB (CK-2) 1.23 Troponin I < 0.012 NT-Pro-B Natriuret Pep 468 H 11/12/19 11/12/19 11/12/19 10:45 15:10 15:10 Creatine Kinase 75 CK-MB (CK-2) 1.29 1.58 Troponin I < 0.012 < 0.012 NT-Pro-B Natriuret Pep 11/12/19 11/12/19 21:50 21:50 Creatine Kinase 73 CK-MB (CK-2) 1.86 Troponin I < 0.012 NT-Pro-B Natriuret Pep Impressions: Chest X-Ray 11/11/19 16:40 IMPRESSION: NO ACUTE RADIOGRAPHIC FINDING IN THE CHEST. Tibia/Fibula X-Ray 11/11/19 21:52 IMPRESSION: There are no findings to suggest an acute fracture or subluxation within the right tibia or fibula. Venous Doppler Study 11/12/19 00:00 IMPRESSION: Negative for DVT or SVT, as imaged. Cervical Spine CT 11/18/19 00:00 IMPRESSION: No acute fracture at the cervical spine. Degenerative changes. Head CT 11/18/19 00:00 IMPRESSION: No acute intracranial hemorrhage or depressed calvarial fracture. EVIDENCE OF ACUTE STROKE: NO. Assessment & Plan - Diagnosis (1) Acute on chronic respiratory failure with hypoxia and hypercapnia Is this a current diagnosis for this admission?: Yes (2) Chronic UTI Is this a current diagnosis for this admission?: Yes (3) Chronic indwelling Sales catheter Is this a current diagnosis for this admission?: Yes (4) Chronic obstructive pulmonary disease with (acute) exacerbation Is this a current diagnosis for this admission?: Yes (5) Obesity hypoventilation syndrome Is this a current diagnosis for this admission?: Yes (6) Acute on chronic diastolic (congestive) heart failure Is this a current diagnosis for this admission?: Yes (7) Pseudomonas urinary tract infection Is this a current diagnosis for this admission?: Yes Plan: Start gentamicin pharmacy to dose (8) Hematoma of left lower extremity Qualifiers: Encounter type: sequela Qualified Code(s): S80.12XS - Contusion of left lower leg, sequela Is this a current diagnosis for this admission?: Yes - Time Time Spent with patient: 25-34 minutes Level of Care: TELE
[2019-11-19] MEDS ORDERED: GENTAMICIN SULFATE 0 MG in DEXTROSE 5%-WATER 100 ML IV NR (19:15)
[2019-11-19] MEDS: INSULIN GLARGINE,HUM.REC.ANLOG 1,000 UNIT/10 ML VIAL SUBCUT SCH (21:59)
[2019-11-19] MEDS: METOPROLOL SUCCINATE 25 MG TAB.SR.24H PO SCH (22:01)
[2019-11-19] MEDS: MONTELUKAST SODIUM 10 MG TABLET PO SCH (22:02)
[2019-11-20] MEDS: OXYCODONE HCL SR 10 MG TABLET PO SCH ×3 (05:24→22:09)
[2019-11-20] MEDS: GABAPENTIN 100 MG CAPSULE PO SCH ×3 (05:24→22:09)
[2019-11-20] MEDS: LEVOTHYROXINE SODIUM 0.088 MG TABLET PO SCH (05:25)
[2019-11-20] MEDS: CETIRIZINE 10 MG TABLET PO PRN (06:42)
[2019-11-20] MEDS: INSULIN LISPRO 100 UNIT/ML 3 ML VIAL SUBCUT SCH ×4 (07:44→22:07)
[2019-11-20] MEDS: ONDANSETRON 4 MG TAB.RAPDIS PO PRN (07:49)
[2019-11-20] MEDS: IPRATROPIUM/ALBUTEROL 0.5-2.5 MG/3 ML AMPUL NEB SCH ×3 (08:21→19:58)
[2019-11-20] MEDS: FLUTICASONE/VILANTEROL 200-25 MCG/DOSE IH SCH (09:31)
[2019-11-20] MEDS: GLIMEPIRIDE 1 MG TABLET PO SCH (09:32)
[2019-11-20] MEDS: PANTOT AC/MIN OIL/PET HY-PHL OINT 50 GM TOP SCH ×2 (09:33→18:08)
[2019-11-20] MEDS: FUROSEMIDE INJ/PF 20 MG/2 ML SDV IV SCH ×2 (09:33→22:08)
[2019-11-20] MEDS: POTASSIUM CHLORIDE 10 MEQ TABLET.ER PO SCH ×2 (09:33→22:09)
[2019-11-20] MEDS: PANTOPRAZOLE SODIUM 40 MG TABLET.DR PO SCH ×2 (09:34→22:09)
[2019-11-20] MEDS: AMLODIPINE BESYLATE 5 MG TABLET PO SCH (09:34)
[2019-11-20] MEDS: POLYETHYLENE GLYCOL 3350 POWDER 17 GM/1 PACKET PO SCH ×2 (09:34→18:05)
[2019-11-20] MEDS: HYDROXYCHLOROQUINE SULFATE 200 MG TABLET PO SCH ×2 (09:34→22:09)
[2019-11-20] MEDS: CALCIUM CARBONATE 500 MG TABLET PO SCH (09:34)
[2019-11-20] MEDS: CARBOXYMETHYLCELLULOSE SOD 0.5% 0.4 ML DROPERETTE OU SCH ×5 (09:35→22:11)
[2019-11-20] MEDS: SENNOSIDES/DOCUSATE 8.6-50 MG 1 EACH TABLET PO SCH ×2 (09:35→18:05)
[2019-11-20] MEDS: CYCLOSPORINE 0.05% OPH EMULSIO 0.4 ML DROPERETTE OU SCH ×2 (09:35→22:09)
[2019-11-20] MEDS: ALLOPURINOL 300 MG TABLET PO SCH (09:35)
[2019-11-20] MEDS: GENTAMICIN SULFATE 140 MG in DEXTROSE 5%-WATER 100 ML IV SCH ×2 (10:18→22:31)
[2019-11-20] MEDS: SODIUM CHLORIDE NASAL SPRAY 44 ML NASL PRN (10:22)
[2019-11-20] MEDS: ENOXAPARIN SODIUM INJ 40 MG/0.4 ML DISP.SYRIN SUBCUT SCH (10:26)
[2019-11-20] MEDS: OXYCODONE HCL IR 5 MG TABLET PO PRN (18:06)
[2019-11-20] MEDS ORDERED: BISACODYL 10 MG SUPP.RECT PR PRN (18:19)
--- NOTE | 2019-11-20 20:06 | PDOC PROGRESS REPORT ---
Subjective Progress Note for:: 11/20/19 Subjective:: She was seen by the bedside, she complained of cough, constipation,, She has Pseudomonas UTI on gentamicin Reason For Visit: SOB Physical Exam Vital Signs: Temp Pulse Resp BP Pulse Ox 98.2 F 84 16 125/47 L 97 11/20/19 15:26 11/20/19 19:00 11/20/19 15:26 11/20/19 15:26 11/20/19 15:26 Intake & Output 11/19/19 11/20/19 11/21/19 06:59 06:59 06:59 Intake Total 650 920 976.5 Output Total 1100 1500 525 Balance -450 -580 451.5 General appearance: PRESENT: morbidly obese Respiratory exam: PRESENT: clear to auscultation pennie Cardiovascular exam: PRESENT: +S1, +S2 GI/Abdominal exam: PRESENT: soft Results Laboratory Results: 11/19/19 06:42 11/19/19 06:42 11/11/19 11/11/19 11/12/19 16:42 16:42 10:45 Creatine Kinase 130 78 CK-MB (CK-2) 1.23 Troponin I < 0.012 NT-Pro-B Natriuret Pep 468 H 11/12/19 11/12/19 11/12/19 10:45 15:10 15:10 Creatine Kinase 75 CK-MB (CK-2) 1.29 1.58 Troponin I < 0.012 < 0.012 NT-Pro-B Natriuret Pep 11/12/19 11/12/19 21:50 21:50 Creatine Kinase 73 CK-MB (CK-2) 1.86 Troponin I < 0.012 NT-Pro-B Natriuret Pep Impressions: Chest X-Ray 11/11/19 16:40 IMPRESSION: NO ACUTE RADIOGRAPHIC FINDING IN THE CHEST. Tibia/Fibula X-Ray 11/11/19 21:52 IMPRESSION: There are no findings to suggest an acute fracture or subluxation within the right tibia or fibula. Venous Doppler Study 11/12/19 00:00 IMPRESSION: Negative for DVT or SVT, as imaged. Cervical Spine CT 11/18/19 00:00 IMPRESSION: No acute fracture at the cervical spine. Degenerative changes. Head CT 11/18/19 00:00 IMPRESSION: No acute intracranial hemorrhage or depressed calvarial fracture. EVIDENCE OF ACUTE STROKE: NO. Assessment & Plan - Diagnosis (1) Acute on chronic respiratory failure with hypoxia and hypercapnia Is this a current diagnosis for this admission?: Yes (2) Chronic UTI Is this a current diagnosis for this admission?: Yes (3) Chronic indwelling Sales catheter Is this a current diagnosis for this admission?: Yes (4) Chronic obstructive pulmonary disease with (acute) exacerbation Is this a current diagnosis for this admission?: Yes (5) Obesity hypoventilation syndrome Is this a current diagnosis for this admission?: Yes (6) Acute on chronic diastolic (congestive) heart failure Is this a current diagnosis for this admission?: Yes (7) Pseudomonas urinary tract infection Is this a current diagnosis for this admission?: Yes Plan: Continue IV gentamicin (8) Hematoma of left lower extremity Qualifiers: Encounter type: sequela Qualified Code(s): S80.12XS - Contusion of left lower leg, sequela Is this a current diagnosis for this admission?: Yes - Time Time Spent with patient: 25-34 minutes Level of Care: IMCU
[2019-11-20] MEDS: INSULIN GLARGINE,HUM.REC.ANLOG 1,000 UNIT/10 ML VIAL SUBCUT SCH (22:07)
[2019-11-20] MEDS: GUAIFENESIN 600 MG TABLET.SA PO SCH (22:09)
[2019-11-20] MEDS: METOPROLOL SUCCINATE 25 MG TAB.SR.24H PO SCH (22:09)
[2019-11-20] MEDS: MONTELUKAST SODIUM 10 MG TABLET PO SCH (22:09)
[2019-11-21] MEDS: LEVOTHYROXINE SODIUM 0.088 MG TABLET PO SCH (05:29)
[2019-11-21] MEDS: OXYCODONE HCL SR 10 MG TABLET PO SCH ×3 (05:29→22:17)
[2019-11-21] MEDS: GABAPENTIN 100 MG CAPSULE PO SCH ×3 (05:29→22:16)
[2019-11-21] MEDS: IPRATROPIUM/ALBUTEROL 0.5-2.5 MG/3 ML AMPUL NEB SCH ×3 (07:59→21:04)
[2019-11-21] MEDS: CETIRIZINE 10 MG TABLET PO PRN (08:27)
[2019-11-21] MEDS: INSULIN LISPRO 100 UNIT/ML 3 ML VIAL SUBCUT SCH ×4 (08:27→22:12)
[2019-11-21] MEDS: ENOXAPARIN SODIUM INJ 40 MG/0.4 ML DISP.SYRIN SUBCUT SCH (09:02)
[2019-11-21] MEDS: CALCIUM CARBONATE 500 MG TABLET PO SCH (09:23)
[2019-11-21] MEDS: POLYETHYLENE GLYCOL 3350 POWDER 17 GM/1 PACKET PO SCH ×2 (09:23→17:56)
[2019-11-21] MEDS: FUROSEMIDE INJ/PF 20 MG/2 ML SDV IV SCH ×2 (09:23→22:13)
[2019-11-21] MEDS: AMLODIPINE BESYLATE 5 MG TABLET PO SCH (09:24)
[2019-11-21] MEDS: GUAIFENESIN 600 MG TABLET.SA PO SCH ×2 (09:24→22:15)
[2019-11-21] MEDS: POTASSIUM CHLORIDE 10 MEQ TABLET.ER PO SCH ×2 (09:24→22:13)
[2019-11-21] MEDS: SENNOSIDES/DOCUSATE 8.6-50 MG 1 EACH TABLET PO SCH ×2 (09:24→17:56)
[2019-11-21] MEDS: GLIMEPIRIDE 1 MG TABLET PO SCH (09:24)
[2019-11-21] MEDS: OXYCODONE HCL IR 5 MG TABLET PO PRN ×2 (09:24→17:56)
[2019-11-21] MEDS: PANTOPRAZOLE SODIUM 40 MG TABLET.DR PO SCH ×2 (09:24→22:15)
[2019-11-21] MEDS: PANTOT AC/MIN OIL/PET HY-PHL OINT 50 GM TOP SCH ×2 (09:25→17:49)
[2019-11-21] MEDS: FLUTICASONE/VILANTEROL 200-25 MCG/DOSE IH SCH (09:25)
[2019-11-21] MEDS: ALLOPURINOL 300 MG TABLET PO SCH (09:26)
[2019-11-21] MEDS: CYCLOSPORINE 0.05% OPH EMULSIO 0.4 ML DROPERETTE OU SCH ×2 (09:26→22:16)
[2019-11-21] MEDS: HYDROXYCHLOROQUINE SULFATE 200 MG TABLET PO SCH ×2 (09:26→22:17)
[2019-11-21] MEDS: CARBOXYMETHYLCELLULOSE SOD 0.5% 0.4 ML DROPERETTE OU SCH ×5 (09:28→22:18)
[2019-11-21] MEDS: GENTAMICIN SULFATE 140 MG in DEXTROSE 5%-WATER 100 ML IV SCH ×2 (09:30→22:11)
--- NOTE | 2019-11-21 20:21 | PDOC PROGRESS REPORT ---
Subjective Progress Note for:: 11/21/19 Subjective:: Patient seen by the bedside, the urine culture positive for MRSA and also Pseudomonas, she is presently on gentamicin for Pseudomonas infection. MRSA is not a typical uropathogen, MRSA urosepsis is a manifestation of septic embolization suggesting a distant source for the MRSA, patient is also coughing persistently, the lung could be the potential source of the MRSA, a CAT scan of the lung without contrast will be obtained to rule out pneumonia meanwhile she will be empirically started on vancomycin, pharmacy to dose, she now on 2 potential nephrotoxic antibiotic Reason For Visit: SOB Physical Exam Vital Signs: Temp Pulse Resp BP Pulse Ox 97.9 F 77 20 142/55 H 97 11/21/19 16:30 11/21/19 19:00 11/21/19 16:30 11/21/19 16:30 11/21/19 16:30 Intake & Output 11/20/19 11/21/19 11/22/19 06:59 06:59 06:59 Intake Total 920 1764.0 783.5 Output Total 1500 1325 Balance -580 439.0 783.5 Weight 165.2 kg General appearance: PRESENT: no acute distress Eye exam: PRESENT: PERRLA Respiratory exam: PRESENT: clear to auscultation pennie Cardiovascular exam: PRESENT: +S1, +S2 GI/Abdominal exam: PRESENT: soft Neurological exam: PRESENT: alert Results Laboratory Results: 11/19/19 06:42 11/19/19 06:42 11/16/19 19:00 Clean Catch Midstream Urine Culture - Final Pseudomonas Aeruginosa Mrsa (Meth Resis Staph Aureus) 11/11/19 11/11/19 11/12/19 16:42 16:42 10:45 Creatine Kinase 130 78 CK-MB (CK-2) 1.23 Troponin I < 0.012 NT-Pro-B Natriuret Pep 468 H 11/12/19 11/12/19 11/12/19 10:45 15:10 15:10 Creatine Kinase 75 CK-MB (CK-2) 1.29 1.58 Troponin I < 0.012 < 0.012 NT-Pro-B Natriuret Pep 11/12/19 11/12/19 21:50 21:50 Creatine Kinase 73 CK-MB (CK-2) 1.86 Troponin I < 0.012 NT-Pro-B Natriuret Pep Impressions: Chest X-Ray 11/11/19 16:40 IMPRESSION: NO ACUTE RADIOGRAPHIC FINDING IN THE CHEST. Tibia/Fibula X-Ray 11/11/19 21:52 IMPRESSION: There are no findings to suggest an acute fracture or subluxation within the right tibia or fibula. Venous Doppler Study 11/12/19 00:00 IMPRESSION: Negative for DVT or SVT, as imaged. Cervical Spine CT 11/18/19 00:00 IMPRESSION: No acute fracture at the cervical spine. Degenerative changes. Head CT 11/18/19 00:00 IMPRESSION: No acute intracranial hemorrhage or depressed calvarial fracture. EVIDENCE OF ACUTE STROKE: NO. Assessment & Plan - Diagnosis (1) Acute on chronic respiratory failure with hypoxia and hypercapnia Is this a current diagnosis for this admission?: Yes (2) Chronic UTI Is this a current diagnosis for this admission?: Yes (3) Chronic indwelling Sales catheter Is this a current diagnosis for this admission?: Yes (4) Chronic obstructive pulmonary disease with (acute) exacerbation Is this a current diagnosis for this admission?: Yes (5) Obesity hypoventilation syndrome Is this a current diagnosis for this admission?: Yes (6) Acute on chronic diastolic (congestive) heart failure Is this a current diagnosis for this admission?: Yes (7) Pseudomonas urinary tract infection Is this a current diagnosis for this admission?: Yes Plan: Continue gentamicin (8) Hematoma of left lower extremity Qualifiers: Encounter type: sequela Qualified Code(s): S80.12XS - Contusion of left lower leg, sequela Is this a current diagnosis for this admission?: Yes (9) MRSA infection Is this a current diagnosis for this admission?: Yes Plan: MRSA is not a typical uropathogen, MRSA UTI is a manifestation of septic embolization, will need to look for the primary source of the MRSA, patient is coughing, the lung is a potential source, imaging of the lung will be pursued, CT scan without contrast of the lungs ordered - Time Time Spent with patient: 25-34 minutes Level of Care: MEDICAL
[2019-11-21] MEDS ORDERED: VANCOMYCIN HCL 0 MG in DEXTROSE 5%-WATER 250 ML IV NR (20:30)
[2019-11-21] MEDS ORDERED: VANCOMYCIN HCL 1,250 MG in DEXTROSE 5%-WATER 250 ML IV SCH (22:00)
[2019-11-21] MEDS: INSULIN GLARGINE,HUM.REC.ANLOG 1,000 UNIT/10 ML VIAL SUBCUT SCH (22:13)
[2019-11-21] MEDS: PREGABALIN 75 MG CAPSULE PO SCH (22:14)
[2019-11-21] MEDS: METOPROLOL SUCCINATE 25 MG TAB.SR.24H PO SCH (22:15)
[2019-11-21] MEDS: MONTELUKAST SODIUM 10 MG TABLET PO SCH (22:15)
[2019-11-22] MEDS: LEVOTHYROXINE SODIUM 0.088 MG TABLET PO SCH (05:47)
[2019-11-22] MEDS: OXYCODONE HCL SR 10 MG TABLET PO SCH ×3 (05:47→22:16)
[2019-11-22] MEDS: GABAPENTIN 100 MG CAPSULE PO SCH ×3 (05:47→22:14)
[2019-11-22] MEDS: PREGABALIN 75 MG CAPSULE PO SCH ×3 (05:47→22:15)
[2019-11-22] MEDS: INSULIN LISPRO 100 UNIT/ML 3 ML VIAL SUBCUT SCH ×4 (08:03→22:14)
[2019-11-22] MEDS: IPRATROPIUM/ALBUTEROL 0.5-2.5 MG/3 ML AMPUL NEB SCH ×3 (08:21→19:45)
[2019-11-22 10:38] LABS: GENTAMICIN-TROUGH 2.2 ug/mL (<2.0)
[2019-11-22] MEDS: FUROSEMIDE INJ/PF 20 MG/2 ML SDV IV SCH ×2 (10:52→22:17)
[2019-11-22] MEDS: GLIMEPIRIDE 1 MG TABLET PO SCH (10:55)
[2019-11-22] MEDS: SENNOSIDES/DOCUSATE 8.6-50 MG 1 EACH TABLET PO SCH ×2 (10:55→17:35)
[2019-11-22] MEDS: PANTOPRAZOLE SODIUM 40 MG TABLET.DR PO SCH ×2 (10:55→22:15)
[2019-11-22] MEDS: HYDROXYCHLOROQUINE SULFATE 200 MG TABLET PO SCH ×2 (10:55→22:14)
[2019-11-22] MEDS: CALCIUM CARBONATE 500 MG TABLET PO SCH (10:55)
[2019-11-22] MEDS: ALLOPURINOL 300 MG TABLET PO SCH (10:55)
[2019-11-22] MEDS: GUAIFENESIN 600 MG TABLET.SA PO SCH ×2 (10:56→22:14)
[2019-11-22] MEDS: AMLODIPINE BESYLATE 5 MG TABLET PO SCH (10:56)
[2019-11-22] MEDS: POTASSIUM CHLORIDE 10 MEQ TABLET.ER PO SCH ×2 (10:56→22:17)
[2019-11-22] MEDS: POLYETHYLENE GLYCOL 3350 POWDER 17 GM/1 PACKET PO SCH ×2 (10:59→17:35)
[2019-11-22] MEDS: FLUTICASONE/VILANTEROL 200-25 MCG/DOSE IH SCH (10:59)
[2019-11-22] MEDS: CARBOXYMETHYLCELLULOSE SOD 0.5% 0.4 ML DROPERETTE OU SCH ×5 (10:59→22:18)
[2019-11-22] MEDS: CYCLOSPORINE 0.05% OPH EMULSIO 0.4 ML DROPERETTE OU SCH ×2 (11:00→22:18)
[2019-11-22] MEDS: ENOXAPARIN SODIUM INJ 40 MG/0.4 ML DISP.SYRIN SUBCUT SCH (11:00)
[2019-11-22] MEDS: PANTOT AC/MIN OIL/PET HY-PHL OINT 50 GM TOP SCH ×2 (11:01→18:13)
[2019-11-22] MEDS: GENTAMICIN SULFATE 140 MG in DEXTROSE 5%-WATER 100 ML IV SCH (11:01)
--- NOTE | 2019-11-22 17:35 | PDOC PROGRESS REPORT ---
Subjective Progress Note for:: 11/22/19 Subjective:: Yesterday patient was found to have MRSA UTI as I indicated in my previous encounter notes MRSA is not a typical uropathogen, is a manifestation of septic embolization and a distant source of the bacteria she was coughing consistently yesterday a CAT scan of the lung was ordered but because of her weight her weight is beyond the limit of the CAT scan suite in this hospital the scan was not done,a portable chest x-ray was obtained earlier today. The MRSA is sensi tive to gentamicin, patient is already on gentamicin for Pseudomonas UTI so she was continued on the same antibiotic. Reason For Visit: SOB Physical Exam Vital Signs: Temp Pulse Resp BP Pulse Ox 97.6 F 76 15 133/54 H 98 11/22/19 15:02 11/22/19 15:02 11/22/19 15:02 11/22/19 15:02 11/22/19 15:02 Intake & Output 11/21/19 11/22/19 11/23/19 06:59 06:59 06:59 Intake Total 1764.0 1607.0 863.5 Output Total 1325 3200 Balance 439.0 -1593.0 863.5 Weight 165.2 kg 168.73 kg 168.73 kg General appearance: PRESENT: no acute distress Eye exam: PRESENT: PERRLA Respiratory exam: PRESENT: clear to auscultation pennie Cardiovascular exam: PRESENT: +S1, +S2 GI/Abdominal exam: PRESENT: soft Neurological exam: PRESENT: alert Results Laboratory Results: 11/19/19 06:42 11/22/19 09:28 11/22/19 09:28 Creatinine 0.61 Est GFR ( Amer) > 60 11/11/19 11/11/19 11/12/19 16:42 16:42 10:45 Creatine Kinase 130 78 CK-MB (CK-2) 1.23 Troponin I < 0.012 NT-Pro-B Natriuret Pep 468 H 11/12/19 11/12/19 11/12/19 10:45 15:10 15:10 Creatine Kinase 75 CK-MB (CK-2) 1.29 1.58 Troponin I < 0.012 < 0.012 NT-Pro-B Natriuret Pep 11/12/19 11/12/19 21:50 21:50 Creatine Kinase 73 CK-MB (CK-2) 1.86 Troponin I < 0.012 NT-Pro-B Natriuret Pep Impressions: Tibia/Fibula X-Ray 11/11/19 21:52 IMPRESSION: There are no findings to suggest an acute fracture or subluxation within the right tibia or fibula. Venous Doppler Study 11/12/19 00:00 IMPRESSION: Negative for DVT or SVT, as imaged. Cervical Spine CT 11/18/19 00:00 IMPRESSION: No acute fracture at the cervical spine. Degenerative changes. Head CT 11/18/19 00:00 IMPRESSION: No acute intracranial hemorrhage or depressed calvarial fracture. EVIDENCE OF ACUTE STROKE: NO. Assessment & Plan - Diagnosis (1) Acute on chronic respiratory failure with hypoxia and hypercapnia Is this a current diagnosis for this admission?: Yes (2) Chronic UTI Is this a current diagnosis for this admission?: Yes (3) Chronic indwelling Sales catheter Is this a current diagnosis for this admission?: Yes (4) Chronic obstructive pulmonary disease with (acute) exacerbation Is this a current diagnosis for this admission?: Yes (5) Obesity hypoventilation syndrome Is this a current diagnosis for this admission?: Yes (6) Acute on chronic diastolic (congestive) heart failure Is this a current diagnosis for this admission?: Yes (7) Pseudomonas urinary tract infection Is this a current diagnosis for this admission?: Yes (8) Hematoma of left lower extremity Qualifiers: Encounter type: sequela Qualified Code(s): S80.12XS - Contusion of left lower leg, sequela Is this a current diagnosis for this admission?: Yes (9) MRSA infection Is this a current diagnosis for this admission?: Yes - Time Time Spent with patient: 35 or more minutes Level of Care: MEDICAL - Plan Summary Plan Summary: She will continue present antibiotic coverage
--- NOTE | 2019-11-22 17:39 | RADIOLOGY REPORT (SQ) ---
EXAM DESCRIPTION: CHEST SINGLE VIEW COMPLETED DATE/TIME: 11/22/2019 5:18 pm REASON FOR STUDY: cough COMPARISON: 11/11/2019. EXAM PARAMETERS: NUMBER OF VIEWS: One view. TECHNIQUE: Single frontal radiographic view of the chest acquired. RADIATION DOSE: NA LIMITATIONS: None. FINDINGS: LUNGS AND PLEURA: No opacities, masses or pneumothorax. No pleural effusion. MEDIASTINUM AND HILAR STRUCTURES: No masses. Contour normal. HEART AND VASCULAR STRUCTURES: Heart normal in size. Normal vasculature. BONES: No acute findings. HARDWARE: None in the chest. OTHER: No other significant finding. IMPRESSION: NO ACUTE RADIOGRAPHIC FINDING IN THE CHEST. TECHNICAL DOCUMENTATION: JOB ID: [id number] 2010 [employer]- All Rights Reserved Reading location - IP/workstation name: [email or web address]
[2019-11-22] MEDS: MONTELUKAST SODIUM 10 MG TABLET PO SCH (22:15)
[2019-11-22] MEDS: METOPROLOL SUCCINATE 25 MG TAB.SR.24H PO SCH (22:15)
[2019-11-22] MEDS: INSULIN GLARGINE,HUM.REC.ANLOG 1,000 UNIT/10 ML VIAL SUBCUT SCH (22:17)
[2019-11-23] MEDS: PREGABALIN 75 MG CAPSULE PO SCH ×3 (05:54→22:02)
[2019-11-23] MEDS: OXYCODONE HCL SR 10 MG TABLET PO SCH ×3 (05:54→22:03)
[2019-11-23] MEDS: LEVOTHYROXINE SODIUM 0.088 MG TABLET PO SCH (05:55)
[2019-11-23] MEDS: GABAPENTIN 100 MG CAPSULE PO SCH ×3 (05:55→22:02)
[2019-11-23] MEDS: INSULIN LISPRO 100 UNIT/ML 3 ML VIAL SUBCUT SCH ×4 (08:18→22:01)
[2019-11-23] MEDS: IPRATROPIUM/ALBUTEROL 0.5-2.5 MG/3 ML AMPUL NEB SCH ×3 (09:00→21:01)
[2019-11-23] MEDS: POLYETHYLENE GLYCOL 3350 POWDER 17 GM/1 PACKET PO SCH ×2 (09:50→18:12)
[2019-11-23] MEDS: FUROSEMIDE INJ/PF 20 MG/2 ML SDV IV SCH ×2 (09:51→22:04)
[2019-11-23] MEDS: PANTOPRAZOLE SODIUM 40 MG TABLET.DR PO SCH ×2 (09:52→22:02)
[2019-11-23] MEDS: AMLODIPINE BESYLATE 5 MG TABLET PO SCH (09:52)
[2019-11-23] MEDS: CETIRIZINE 10 MG TABLET PO PRN (09:52)
[2019-11-23] MEDS: CALCIUM CARBONATE 500 MG TABLET PO SCH (09:52)
[2019-11-23] MEDS: GUAIFENESIN 600 MG TABLET.SA PO SCH ×2 (09:52→22:03)
[2019-11-23] MEDS: POTASSIUM CHLORIDE 10 MEQ TABLET.ER PO SCH ×2 (09:52→22:02)
[2019-11-23] MEDS: SENNOSIDES/DOCUSATE 8.6-50 MG 1 EACH TABLET PO SCH ×2 (09:52→18:11)
[2019-11-23] MEDS: GLIMEPIRIDE 1 MG TABLET PO SCH (09:52)
[2019-11-23] MEDS: GENTAMICIN SULFATE 140 MG in DEXTROSE 5%-WATER 100 ML IV SCH (09:52)
[2019-11-23] MEDS: FLUTICASONE/VILANTEROL 200-25 MCG/DOSE IH SCH (09:53)
[2019-11-23] MEDS: HYDROXYCHLOROQUINE SULFATE 200 MG TABLET PO SCH ×2 (09:53→22:01)
[2019-11-23] MEDS: ALLOPURINOL 300 MG TABLET PO SCH (09:53)
[2019-11-23] MEDS: PANTOT AC/MIN OIL/PET HY-PHL OINT 50 GM TOP SCH ×2 (09:53→18:06)
[2019-11-23] MEDS: ENOXAPARIN SODIUM INJ 40 MG/0.4 ML DISP.SYRIN SUBCUT SCH (09:54)
[2019-11-23] MEDS: CYCLOSPORINE 0.05% OPH EMULSIO 0.4 ML DROPERETTE OU SCH ×2 (09:54→22:01)
[2019-11-23] MEDS: CARBOXYMETHYLCELLULOSE SOD 0.5% 0.4 ML DROPERETTE OU SCH ×4 (09:55→22:05)
--- NOTE | 2019-11-23 18:05 | PDOC PROGRESS REPORT ---
Subjective Progress Note for:: 11/23/19 Subjective:: Patient seen by the bedside, she is improving slowly but surely she will need to stay in the hospital for few more days because she is on gentamicin relatively toxic medication that needs close monitoring, I am not sure the prison will be an appropriate setting to monitor gentamicin because of his profound renal toxicity Reason For Visit: SOB Physical Exam Vital Signs: Temp Pulse Resp BP Pulse Ox 98.1 F 85 14 140/44 H 98 11/23/19 16:00 11/23/19 16:00 11/23/19 16:00 11/23/19 16:00 11/23/19 16:00 Intake & Output 11/22/19 11/23/19 11/24/19 06:59 06:59 06:59 Intake Total 1607.0 1744.5 780 Output Total 3200 2475 800 Balance -1593.0 -730.5 -20 Weight 168.73 kg 168.555 kg General appearance: PRESENT: no acute distress Eye exam: PRESENT: PERRLA Respiratory exam: PRESENT: clear to auscultation pennie Cardiovascular exam: PRESENT: +S1, +S2 GI/Abdominal exam: PRESENT: soft Neurological exam: PRESENT: alert Results Laboratory Results: 11/19/19 06:42 11/22/19 09:28 11/11/19 11/11/19 11/12/19 16:42 16:42 10:45 Creatine Kinase 130 78 CK-MB (CK-2) 1.23 Troponin I < 0.012 NT-Pro-B Natriuret Pep 468 H 11/12/19 11/12/19 11/12/19 10:45 15:10 15:10 Creatine Kinase 75 CK-MB (CK-2) 1.29 1.58 Troponin I < 0.012 < 0.012 NT-Pro-B Natriuret Pep 11/12/19 11/12/19 21:50 21:50 Creatine Kinase 73 CK-MB (CK-2) 1.86 Troponin I < 0.012 NT-Pro-B Natriuret Pep Impressions: Tibia/Fibula X-Ray 11/11/19 21:52 IMPRESSION: There are no findings to suggest an acute fracture or subluxation within the right tibia or fibula. Venous Doppler Study 11/12/19 00:00 IMPRESSION: Negative for DVT or SVT, as imaged. Cervical Spine CT 11/18/19 00:00 IMPRESSION: No acute fracture at the cervical spine. Degenerative changes. Head CT 11/18/19 00:00 IMPRESSION: No acute intracranial hemorrhage or depressed calvarial fracture. EVIDENCE OF ACUTE STROKE: NO. Chest X-Ray 11/22/19 00:00 IMPRESSION: NO ACUTE RADIOGRAPHIC FINDING IN THE CHEST. Assessment & Plan - Diagnosis (1) Acute on chronic respiratory failure with hypoxia and hypercapnia Is this a current diagnosis for this admission?: Yes (2) Chronic UTI Is this a current diagnosis for this admission?: Yes (3) Chronic indwelling Sales catheter Is this a current diagnosis for this admission?: Yes (4) Chronic obstructive pulmonary disease with (acute) exacerbation Is this a current diagnosis for this admission?: Yes (5) Obesity hypoventilation syndrome Is this a current diagnosis for this admission?: Yes (6) Acute on chronic diastolic (congestive) heart failure Is this a current diagnosis for this admission?: Yes (7) Pseudomonas urinary tract infection Is this a current diagnosis for this admission?: Yes Plan: Continue treatment (8) Hematoma of left lower extremity Qualifiers: Encounter type: sequela Qualified Code(s): S80.12XS - Contusion of left lower leg, sequela Is this a current diagnosis for this admission?: Yes (9) MRSA infection Is this a current diagnosis for this admission?: Yes Plan: She has MRSA infection of the urine - Time Time Spent with patient: 25-34 minutes Level of Care: CU
[2019-11-23] MEDS: METOPROLOL SUCCINATE 25 MG TAB.SR.24H PO SCH (22:02)
[2019-11-23] MEDS: INSULIN GLARGINE,HUM.REC.ANLOG 1,000 UNIT/10 ML VIAL SUBCUT SCH (22:02)
[2019-11-23] MEDS: MONTELUKAST SODIUM 10 MG TABLET PO SCH (22:03)
[2019-11-24] MEDS: OXYCODONE HCL SR 10 MG TABLET PO SCH ×3 (05:52→21:47)
[2019-11-24] MEDS: PREGABALIN 75 MG CAPSULE PO SCH ×3 (05:53→21:47)
[2019-11-24] MEDS: LEVOTHYROXINE SODIUM 0.088 MG TABLET PO SCH (05:53)
[2019-11-24] MEDS: GABAPENTIN 100 MG CAPSULE PO SCH ×3 (05:53→21:47)
[2019-11-24] MEDS: IPRATROPIUM/ALBUTEROL 0.5-2.5 MG/3 ML AMPUL NEB SCH ×3 (08:02→19:58)
[2019-11-24] MEDS: ENOXAPARIN SODIUM INJ 40 MG/0.4 ML DISP.SYRIN SUBCUT SCH (09:28)
[2019-11-24] MEDS: PANTOT AC/MIN OIL/PET HY-PHL OINT 50 GM TOP SCH ×2 (09:28→18:14)
[2019-11-24] MEDS: CETIRIZINE 10 MG TABLET PO PRN (09:54)
[2019-11-24] MEDS: GLIMEPIRIDE 1 MG TABLET PO SCH (09:54)
[2019-11-24] MEDS: POLYETHYLENE GLYCOL 3350 POWDER 17 GM/1 PACKET PO SCH ×2 (09:54→18:14)
[2019-11-24] MEDS: CALCIUM CARBONATE 500 MG TABLET PO SCH (09:55)
[2019-11-24] MEDS: AMLODIPINE BESYLATE 5 MG TABLET PO SCH (09:55)
[2019-11-24] MEDS: SENNOSIDES/DOCUSATE 8.6-50 MG 1 EACH TABLET PO SCH ×2 (09:55→18:15)
[2019-11-24] MEDS: POTASSIUM CHLORIDE 10 MEQ TABLET.ER PO SCH ×2 (09:55→21:47)
[2019-11-24] MEDS: PANTOPRAZOLE SODIUM 40 MG TABLET.DR PO SCH ×2 (09:55→21:47)
[2019-11-24] MEDS: GUAIFENESIN 600 MG TABLET.SA PO SCH ×2 (09:55→21:47)
[2019-11-24] MEDS: HYDROXYCHLOROQUINE SULFATE 200 MG TABLET PO SCH ×2 (09:56→21:47)
[2019-11-24] MEDS: ALLOPURINOL 300 MG TABLET PO SCH (09:56)
[2019-11-24] MEDS: INSULIN LISPRO 100 UNIT/ML 3 ML VIAL SUBCUT SCH ×4 (09:56→22:33)
[2019-11-24] MEDS: FLUTICASONE/VILANTEROL 200-25 MCG/DOSE IH SCH (09:57)
[2019-11-24] MEDS: GENTAMICIN SULFATE 140 MG in DEXTROSE 5%-WATER 100 ML IV SCH (09:58)
[2019-11-24] MEDS: CYCLOSPORINE 0.05% OPH EMULSIO 0.4 ML DROPERETTE OU SCH ×2 (09:58→21:48)
[2019-11-24] MEDS: FUROSEMIDE INJ/PF 20 MG/2 ML SDV IV SCH ×2 (09:58→21:48)
[2019-11-24] MEDS: CARBOXYMETHYLCELLULOSE SOD 0.5% 0.4 ML DROPERETTE OU SCH ×4 (09:59→21:48)
--- NOTE | 2019-11-24 20:26 | PDOC PROGRESS REPORT ---
Subjective Progress Note for:: 11/24/19 Subjective:: Patient seen by the bedside she is on gentamicin for the treatment of MRSA UTI, Pseudomonas UTI, no new complaints Reason For Visit: SOB Physical Exam Vital Signs: Temp Pulse Resp BP Pulse Ox 97.9 F 75 16 150/57 H 100 11/24/19 16:00 11/24/19 19:58 11/24/19 19:58 11/24/19 16:00 11/24/19 19:58 Intake & Output 11/23/19 11/24/19 11/25/19 06:59 06:59 06:59 Intake Total 1744.5 2353.5 1843.5 Output Total 2475 3080 1400 Balance -730.5 -726.5 443.5 Weight 168.555 kg 381.5 kg General appearance: PRESENT: no acute distress Eye exam: PRESENT: PERRLA Respiratory exam: PRESENT: clear to auscultation pennie Cardiovascular exam: PRESENT: +S1, +S2 GI/Abdominal exam: PRESENT: soft Neurological exam: PRESENT: alert Results Laboratory Results: 11/19/19 06:42 11/22/19 09:28 11/11/19 11/11/19 11/12/19 16:42 16:42 10:45 Creatine Kinase 130 78 CK-MB (CK-2) 1.23 Troponin I < 0.012 NT-Pro-B Natriuret Pep 468 H 11/12/19 11/12/19 11/12/19 10:45 15:10 15:10 Creatine Kinase 75 CK-MB (CK-2) 1.29 1.58 Troponin I < 0.012 < 0.012 NT-Pro-B Natriuret Pep 11/12/19 11/12/19 21:50 21:50 Creatine Kinase 73 CK-MB (CK-2) 1.86 Troponin I < 0.012 NT-Pro-B Natriuret Pep Impressions: Tibia/Fibula X-Ray 11/11/19 21:52 IMPRESSION: There are no findings to suggest an acute fracture or subluxation within the right tibia or fibula. Venous Doppler Study 11/12/19 00:00 IMPRESSION: Negative for DVT or SVT, as imaged. Cervical Spine CT 11/18/19 00:00 IMPRESSION: No acute fracture at the cervical spine. Degenerative changes. Head CT 11/18/19 00:00 IMPRESSION: No acute intracranial hemorrhage or depressed calvarial fracture. EVIDENCE OF ACUTE STROKE: NO. Chest X-Ray 11/22/19 00:00 IMPRESSION: NO ACUTE RADIOGRAPHIC FINDING IN THE CHEST. Assessment & Plan - Diagnosis (1) Acute on chronic respiratory failure with hypoxia and hypercapnia Is this a current diagnosis for this admission?: Yes (2) Chronic UTI Is this a current diagnosis for this admission?: Yes (3) Chronic indwelling Sales catheter Is this a current diagnosis for this admission?: Yes (4) Chronic obstructive pulmonary disease with (acute) exacerbation Is this a current diagnosis for this admission?: Yes (5) Obesity hypoventilation syndrome Is this a current diagnosis for this admission?: Yes (6) Acute on chronic diastolic (congestive) heart failure Is this a current diagnosis for this admission?: Yes (7) Pseudomonas urinary tract infection Is this a current diagnosis for this admission?: Yes Plan: She has MRSA and Pseudomonas UTI, MRSA is not a typical uropathogen, it is a manifestation of septic embolization, The challenge though is to find the source of the MRSA, the chest x-ray is negative for pneumonia, the MRSA and Pseudomonas both sensitive to gentamicin (8) Hematoma of left lower extremity Qualifiers: Encounter type: sequela Qualified Code(s): S80.12XS - Contusion of left lower leg, sequela Is this a current diagnosis for this admission?: Yes (9) MRSA infection Is this a current diagnosis for this admission?: Yes - Time Time Spent with patient: 25-34 minutes Level of Care: CU
[2019-11-24] MEDS: METOPROLOL SUCCINATE 25 MG TAB.SR.24H PO SCH (21:47)
[2019-11-24] MEDS: MONTELUKAST SODIUM 10 MG TABLET PO SCH (21:47)
[2019-11-24] MEDS: INSULIN GLARGINE,HUM.REC.ANLOG 1,000 UNIT/10 ML VIAL SUBCUT SCH (21:48)
[2019-11-25] MEDS: OXYCODONE HCL SR 10 MG TABLET PO SCH ×3 (05:53→21:43)
[2019-11-25] MEDS: LEVOTHYROXINE SODIUM 0.088 MG TABLET PO SCH (05:53)
[2019-11-25] MEDS: GABAPENTIN 100 MG CAPSULE PO SCH ×3 (05:53→21:44)
[2019-11-25] MEDS: PREGABALIN 75 MG CAPSULE PO SCH ×3 (05:53→21:43)
[2019-11-25] MEDS: IPRATROPIUM/ALBUTEROL 0.5-2.5 MG/3 ML AMPUL NEB SCH ×3 (09:03→19:35)
[2019-11-25 09:46] LABS: GENTAMICIN-TROUGH 0.8 ug/mL (<2.0)
[2019-11-25] MEDS: PANTOT AC/MIN OIL/PET HY-PHL OINT 50 GM TOP SCH ×2 (09:46→18:39)
[2019-11-25] MEDS: POLYETHYLENE GLYCOL 3350 POWDER 17 GM/1 PACKET PO SCH ×2 (09:46→18:39)
[2019-11-25] MEDS: ENOXAPARIN SODIUM INJ 40 MG/0.4 ML DISP.SYRIN SUBCUT SCH (09:46)
[2019-11-25] MEDS: SENNOSIDES/DOCUSATE 8.6-50 MG 1 EACH TABLET PO SCH ×2 (09:47→18:39)
[2019-11-25] MEDS: FUROSEMIDE INJ/PF 20 MG/2 ML SDV IV SCH ×2 (09:57→21:44)
[2019-11-25] MEDS: GLIMEPIRIDE 1 MG TABLET PO SCH (09:57)
[2019-11-25] MEDS: CETIRIZINE 10 MG TABLET PO PRN (09:57)
[2019-11-25] MEDS: GUAIFENESIN 600 MG TABLET.SA PO SCH ×2 (09:57→21:44)
[2019-11-25] MEDS: CALCIUM CARBONATE 500 MG TABLET PO SCH (09:57)
[2019-11-25] MEDS: PANTOPRAZOLE SODIUM 40 MG TABLET.DR PO SCH ×2 (09:57→21:44)
[2019-11-25] MEDS: AMLODIPINE BESYLATE 5 MG TABLET PO SCH (09:58)
[2019-11-25] MEDS: POTASSIUM CHLORIDE 10 MEQ TABLET.ER PO SCH ×2 (09:58→21:44)
[2019-11-25] MEDS: FLUTICASONE/VILANTEROL 200-25 MCG/DOSE IH SCH (09:58)
[2019-11-25] MEDS: ALLOPURINOL 300 MG TABLET PO SCH (09:59)
[2019-11-25] MEDS: GENTAMICIN SULFATE 140 MG in DEXTROSE 5%-WATER 100 ML IV SCH (09:59)
[2019-11-25] MEDS: HYDROXYCHLOROQUINE SULFATE 200 MG TABLET PO SCH ×2 (09:59→21:43)
[2019-11-25] MEDS: CARBOXYMETHYLCELLULOSE SOD 0.5% 0.4 ML DROPERETTE OU SCH ×4 (09:59→21:44)
[2019-11-25] MEDS: CYCLOSPORINE 0.05% OPH EMULSIO 0.4 ML DROPERETTE OU SCH ×2 (10:00→21:44)
[2019-11-25] MEDS: INSULIN LISPRO 100 UNIT/ML 3 ML VIAL SUBCUT SCH ×4 (10:00→21:44)
--- NOTE | 2019-11-25 17:08 | PDOC PROGRESS REPORT ---
Subjective Progress Note for:: 11/25/19 Subjective:: No reported fever or chills. P. No chest pain or difficulty with breathing.O intake improving. No abdominal pain, nausea or vomiting. Patient reported some degree of fecal incontinence. Reason For Visit: SOB Physical Exam Vital Signs: Temp Pulse Resp BP Pulse Ox 97.6 F 82 19 159/51 H 95 11/25/19 15:34 11/25/19 15:34 11/25/19 15:34 11/25/19 15:34 11/25/19 15:34 Intake & Output 11/24/19 11/25/19 11/26/19 06:59 06:59 06:59 Intake Total 2353.5 2193.5 1063.5 Output Total 3080 3200 Balance -726.5 -1006.5 1063.5 Weight 381.5 kg 170.6 kg General appearance: PRESENT: no acute distress, morbidly obese Head exam: PRESENT: atraumatic, normocephalic Ear exam: PRESENT: TM's normal bilaterally Mouth exam: PRESENT: moist Respiratory exam: PRESENT: clear to auscultation pennie Cardiovascular exam: PRESENT: RRR, +S1, +S2. ABSENT: diastolic murmur, rubs, systolic murmur Vascular exam: ABSENT: pallor GI/Abdominal exam: PRESENT: normal bowel sounds, soft. ABSENT: distended, guarding, mass, organolmegaly, rebound, tenderness Extremities exam: ABSENT: pedal edema Neurological exam: PRESENT: alert, awake Psychiatric exam: PRESENT: appropriate affect, normal mood. ABSENT: homicidal ideation, suicidal ideation Skin exam: PRESENT: dry, warm Results Laboratory Results: 11/19/19 06:42 11/25/19 09:14 11/25/19 09:14 Creatinine 0.71 Est GFR ( Amer) > 60 11/11/19 11/11/19 11/12/19 16:42 16:42 10:45 Creatine Kinase 130 78 CK-MB (CK-2) 1.23 Troponin I < 0.012 NT-Pro-B Natriuret Pep 468 H 11/12/19 11/12/19 11/12/19 10:45 15:10 15:10 Creatine Kinase 75 CK-MB (CK-2) 1.29 1.58 Troponin I < 0.012 < 0.012 NT-Pro-B Natriuret Pep 11/12/19 11/12/19 21:50 21:50 Creatine Kinase 73 CK-MB (CK-2) 1.86 Troponin I < 0.012 NT-Pro-B Natriuret Pep Impressions: Tibia/Fibula X-Ray 11/11/19 21:52 IMPRESSION: There are no findings to suggest an acute fracture or subluxation within the right tibia or fibula. Venous Doppler Study 11/12/19 00:00 IMPRESSION: Negative for DVT or SVT, as imaged. Cervical Spine CT 11/18/19 00:00 IMPRESSION: No acute fracture at the cervical spine. Degenerative changes. Head CT 11/18/19 00:00 IMPRESSION: No acute intracranial hemorrhage or depressed calvarial fracture. EVIDENCE OF ACUTE STROKE: NO. Chest X-Ray 11/22/19 00:00 IMPRESSION: NO ACUTE RADIOGRAPHIC FINDING IN THE CHEST. Assessment & Plan - Diagnosis (1) MRSA infection Is this a current diagnosis for this admission?: Yes Plan: Continue IV Gentamicin coverage. (2) Pseudomonas urinary tract infection Is this a current diagnosis for this admission?: Yes Plan: Continue IV Gentamicin coverage. 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 (4) BMI 60.0-69.9, adult Is this a current diagnosis for this admission?: Yes Plan: Continue current medication management. - Time Time Spent with patient: 25-34 minutes Level of Care: TELE Medications reviewed and adjusted accordingly: Yes Anticipated discharge: SNF Within: Other - Inpatient Certification Based on my medical assessment, after consideration of the patient's comorbidities, presenting symptoms, or acuity I expect that the services needed warrant INPATIENT care.: Yes I certify that my determination is in accordance with my understanding of Medicare's requirements for reasonable and necessary INPATIENT services [42 CFR 412.3e].: Yes Medical Necessity: Significant Comorbidiites Make Outpatient Treatment Too Risky, Need Close Monitoring Due to Risk of Patient Decompensation, Need For IV Fluids, Need For Continuous Telemetry Monitoring, Need for IV Antibiotics, Risk of Complication if Not Cared For in Hospital, Risk of Diagnosis Which Will Require Inpatient Eval/Care/Monitoring Post Hospital Care: D/C or Transfer Summary - Plan Summary Plan Summary: Continue current medication management.
[2019-11-25] MEDS: MONTELUKAST SODIUM 10 MG TABLET PO SCH (21:43)
[2019-11-25] MEDS: METOPROLOL SUCCINATE 25 MG TAB.SR.24H PO SCH (21:44)
[2019-11-25] MEDS: INSULIN GLARGINE,HUM.REC.ANLOG 1,000 UNIT/10 ML VIAL SUBCUT SCH (21:45)
[2019-11-26] MEDS: OXYCODONE HCL IR 5 MG TABLET PO PRN (02:22)
[2019-11-26] MEDS: OXYCODONE HCL SR 10 MG TABLET PO SCH ×3 (06:04→22:10)
[2019-11-26] MEDS: LEVOTHYROXINE SODIUM 0.088 MG TABLET PO SCH (06:04)
[2019-11-26] MEDS: PREGABALIN 75 MG CAPSULE PO SCH ×3 (06:04→22:10)
[2019-11-26] MEDS: GABAPENTIN 100 MG CAPSULE PO SCH ×3 (06:04→22:10)
[2019-11-26] MEDS: IPRATROPIUM/ALBUTEROL 0.5-2.5 MG/3 ML AMPUL NEB SCH ×3 (08:54→19:15)
[2019-11-26] MEDS: INSULIN LISPRO 100 UNIT/ML 3 ML VIAL SUBCUT SCH ×4 (10:41→22:11)
[2019-11-26] MEDS: AMLODIPINE BESYLATE 5 MG TABLET PO SCH (11:13)
[2019-11-26] MEDS: POTASSIUM CHLORIDE 10 MEQ TABLET.ER PO SCH ×2 (11:13→22:10)
[2019-11-26] MEDS: GENTAMICIN SULFATE 140 MG in DEXTROSE 5%-WATER 100 ML IV SCH (11:13)
[2019-11-26] MEDS: GUAIFENESIN 600 MG TABLET.SA PO SCH ×2 (11:13→22:10)
[2019-11-26] MEDS: CALCIUM CARBONATE 500 MG TABLET PO SCH (11:13)
[2019-11-26] MEDS: PANTOPRAZOLE SODIUM 40 MG TABLET.DR PO SCH ×2 (11:14→22:10)
[2019-11-26] MEDS: PANTOT AC/MIN OIL/PET HY-PHL OINT 50 GM TOP SCH ×2 (11:14→17:19)
[2019-11-26] MEDS: GLIMEPIRIDE 1 MG TABLET PO SCH (11:14)
[2019-11-26] MEDS: FLUTICASONE/VILANTEROL 200-25 MCG/DOSE IH SCH (11:15)
[2019-11-26] MEDS: POLYETHYLENE GLYCOL 3350 POWDER 17 GM/1 PACKET PO SCH ×2 (11:15→17:19)
[2019-11-26] MEDS: FUROSEMIDE INJ/PF 20 MG/2 ML SDV IV SCH ×2 (11:15→22:11)
[2019-11-26] MEDS: ENOXAPARIN SODIUM INJ 40 MG/0.4 ML DISP.SYRIN SUBCUT SCH (11:15)
[2019-11-26] MEDS: ALLOPURINOL 300 MG TABLET PO SCH (11:16)
[2019-11-26] MEDS: SENNOSIDES/DOCUSATE 8.6-50 MG 1 EACH TABLET PO SCH ×2 (11:16→17:19)
[2019-11-26] MEDS: CARBOXYMETHYLCELLULOSE SOD 0.5% 0.4 ML DROPERETTE OU SCH ×4 (11:16→22:11)
[2019-11-26] MEDS: HYDROXYCHLOROQUINE SULFATE 200 MG TABLET PO SCH ×2 (11:16→22:10)
[2019-11-26] MEDS: CYCLOSPORINE 0.05% OPH EMULSIO 0.4 ML DROPERETTE OU SCH ×2 (11:16→22:11)
[2019-11-26] MEDS: CETIRIZINE 10 MG TABLET PO PRN (11:20)
--- NOTE | 2019-11-26 16:51 | PDOC PROGRESS REPORT ---
Subjective Progress Note for:: 11/26/19 Subjective:: No reported fever or chills. No chest pain or difficulty with breathing. No abdominal pain, nausea or vomiting. Reason For Visit: SOB Physical Exam Vital Signs: Temp Pulse Resp BP Pulse Ox 97.7 F 74 16 134/53 H 94 11/26/19 11:10 11/26/19 11:10 11/26/19 11:10 11/26/19 11:10 11/26/19 11:10 Intake & Output 11/25/19 11/26/19 11/27/19 06:59 06:59 06:59 Intake Total 2193.5 3057.5 Output Total 3200 4025 Balance -1006.5 -967.5 Weight 170.6 kg 175.8 kg Physical Exam: General appearance: PRESENT: no acute distress, morbidly obese Head exam: PRESENT: atraumatic, normocephalic EYE: Conjunctiva pink,. ABSENT: pallor, sclera icterus, Ear exam: PRESENT: TM's normal bilaterally Mouth exam: PRESENT: moist Respiratory exam: PRESENT: clear to auscultation pennie Cardiovascular exam: PRESENT: RRR, +S1, +S2. ABSENT: diastolic murmur, rubs, systolic murmur GI/Abdominal exam: PRESENT: normal bowel sounds, soft. ABSENT: distended, guar ding, mass, organomegaly, rebound, tenderness Extremities exam: ABSENT: pedal edema Neurological exam: PRESENT: alert, awake Psychiatric exam: PRESENT: appropriate affect, normal mood. ABSENT: homicidal ideation, suicidal ideation Skin exam: PRESENT: dry, warm Results Laboratory Results: 11/19/19 06:42 11/25/19 09:14 11/11/19 11/11/19 11/12/19 16:42 16:42 10:45 Creatine Kinase 130 78 CK-MB (CK-2) 1.23 Troponin I < 0.012 NT-Pro-B Natriuret Pep 468 H 11/12/19 11/12/19 11/12/19 10:45 15:10 15:10 Creatine Kinase 75 CK-MB (CK-2) 1.29 1.58 Troponin I < 0.012 < 0.012 NT-Pro-B Natriuret Pep 11/12/19 11/12/19 21:50 21:50 Creatine Kinase 73 CK-MB (CK-2) 1.86 Troponin I < 0.012 NT-Pro-B Natriuret Pep Impressions: Tibia/Fibula X-Ray 11/11/19 21:52 IMPRESSION: There are no findings to suggest an acute fracture or subluxation within the right tibia or fibula. Venous Doppler Study 11/12/19 00:00 IMPRESSION: Negative for DVT or SVT, as imaged. Cervical Spine CT 11/18/19 00:00 IMPRESSION: No acute fracture at the cervical spine. Degenerative changes. Head CT 11/18/19 00:00 IMPRESSION: No acute intracranial hemorrhage or depressed calvarial fracture. EVIDENCE OF ACUTE STROKE: NO. Chest X-Ray 11/22/19 00:00 IMPRESSION: NO ACUTE RADIOGRAPHIC FINDING IN THE CHEST. 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 senior care insulin use status Diabetes mellitus complication status: with kidney complications Diabetes mellitus complication detail: with nephropathy Qualified Code(s): E11.21 - Type 2 diabetes mellitus with diabetic nephropathy Is this a current diagnosis for this admission?: Yes (4) BMI 60.0-69.9, adult Is this a current diagnosis for this admission?: Yes - Time Time Spent with patient: 25-34 minutes Level of Care: IMCU Medications reviewed and adjusted accordingly: Yes Anticipated discharge: SNF Within: Other - Inpatient Certification Based on my medical assessment, after consideration of the patient's comorbidities, presenting symptoms, or acuity I expect that the services needed warrant INPATIENT care.: Yes I certify that my determination is in accordance with my understanding of Medicare's requirements for reasonable and necessary INPATIENT services [42 CFR 412.3e].: Yes Medical Necessity: Significant Comorbidiites Make Outpatient Treatment Too Risky, Need Close Monitoring Due to Risk of Patient Decompensation, Need For Continuous Telemetry Monitoring, Need for IV Antibiotics, Risk of Complication if Not Cared For in Hospital, Risk of Diagnosis Which Will Require Inpatient Eval/Care/Monitoring Post Hospital Care: D/C or Transfer Summary - Plan Summary Plan Summary: Continue current medication management.
[2019-11-26] MEDS ORDERED: OXYCODONE HCL IR 5 MG TABLET PO PRN (22:03)
[2019-11-26] MEDS: MONTELUKAST SODIUM 10 MG TABLET PO SCH (22:10)
[2019-11-26] MEDS: METOPROLOL SUCCINATE 25 MG TAB.SR.24H PO SCH (22:10)
[2019-11-26] MEDS: INSULIN GLARGINE,HUM.REC.ANLOG 1,000 UNIT/10 ML VIAL SUBCUT SCH (22:11)
[2019-11-27] MEDS: OXYCODONE HCL SR 10 MG TABLET PO SCH ×3 (05:42→23:08)
[2019-11-27] MEDS: LEVOTHYROXINE SODIUM 0.088 MG TABLET PO SCH (05:42)
[2019-11-27] MEDS: GABAPENTIN 100 MG CAPSULE PO SCH ×3 (05:42→23:09)
[2019-11-27] MEDS: PREGABALIN 75 MG CAPSULE PO SCH ×3 (05:42→23:06)
[2019-11-27] MEDS: IPRATROPIUM/ALBUTEROL 0.5-2.5 MG/3 ML AMPUL NEB SCH ×3 (08:41→19:41)
[2019-11-27] MEDS: AMLODIPINE BESYLATE 5 MG TABLET PO SCH (09:29)
[2019-11-27] MEDS: CETIRIZINE 10 MG TABLET PO PRN (09:29)
[2019-11-27] MEDS: CALCIUM CARBONATE 500 MG TABLET PO SCH (09:29)
[2019-11-27] MEDS: POTASSIUM CHLORIDE 10 MEQ TABLET.ER PO SCH ×2 (09:30→23:08)
[2019-11-27] MEDS: FLUTICASONE/VILANTEROL 200-25 MCG/DOSE IH SCH (09:30)
[2019-11-27] MEDS: GLIMEPIRIDE 1 MG TABLET PO SCH (09:30)
[2019-11-27] MEDS: ALLOPURINOL 300 MG TABLET PO SCH (09:30)
[2019-11-27] MEDS: FUROSEMIDE INJ/PF 20 MG/2 ML SDV IV SCH ×2 (09:30→23:07)
[2019-11-27] MEDS: PANTOPRAZOLE SODIUM 40 MG TABLET.DR PO SCH ×2 (09:30→23:07)
[2019-11-27] MEDS: GUAIFENESIN 600 MG TABLET.SA PO SCH ×2 (09:30→23:07)
[2019-11-27] MEDS: HYDROXYCHLOROQUINE SULFATE 200 MG TABLET PO SCH ×2 (09:31→23:17)
[2019-11-27] MEDS: PANTOT AC/MIN OIL/PET HY-PHL OINT 50 GM TOP SCH ×2 (09:31→17:08)
[2019-11-27] MEDS: CYCLOSPORINE 0.05% OPH EMULSIO 0.4 ML DROPERETTE OU SCH ×2 (09:31→23:18)
[2019-11-27] MEDS: CARBOXYMETHYLCELLULOSE SOD 0.5% 0.4 ML DROPERETTE OU SCH ×4 (09:31→23:17)
[2019-11-27] MEDS: ENOXAPARIN SODIUM INJ 40 MG/0.4 ML DISP.SYRIN SUBCUT SCH (09:31)
[2019-11-27] MEDS: POLYETHYLENE GLYCOL 3350 POWDER 17 GM/1 PACKET PO SCH ×2 (09:32→17:08)
[2019-11-27] MEDS: SENNOSIDES/DOCUSATE 8.6-50 MG 1 EACH TABLET PO SCH ×2 (09:32→17:09)
[2019-11-27] MEDS: INSULIN LISPRO 100 UNIT/ML 3 ML VIAL SUBCUT SCH ×4 (09:36→23:03)
--- NOTE | 2019-11-27 20:44 | PDOC TRANSFER SUMMARY ---
Impression - Admit/DC Date/PCP Admission Date/Primary Care Provider: 11/12/19 00:53 NAYLA GEE MD Discharge Date: 11/28/19 - Discharge Diagnosis (1) Acute on chronic respiratory failure with hypoxia and hypercapnia Is this a current diagnosis for this admission?: Yes (2) Chronic UTI Is this a current diagnosis for this admission?: Yes (3) Chronic indwelling Sales catheter Is this a current diagnosis for this admission?: Yes (4) Chronic obstructive pulmonary disease with (acute) exacerbation Is this a current diagnosis for this admission?: Yes (5) Obesity hypoventilation syndrome Is this a current diagnosis for this admission?: Yes (6) Acute on chronic diastolic (congestive) heart failure Is this a current diagnosis for this admission?: Yes (7) Pseudomonas urinary tract infection Is this a current diagnosis for this admission?: Yes (8) Hematoma of left lower extremity Is this a current diagnosis for this admission?: Yes (9) MRSA infection Is this a current diagnosis for this admission?: Yes - Additional Information Resuscitation Status: Full Code Referrals: NAYLA GEE MD [Primary Care Provider] - Follow up as needed Home Medications: Allopurinol [Zyloprim 300 mg Tablet] 300 mg PO DAILY 11/12/19 Amlodipine Besylate [Norvasc 5 mg Tablet] 5 mg PO DAILY 11/12/19 Baclofen [Baclofen 10 mg Tablet] 10 mg PO QID 11/12/19 Benzocaine/Menthol [Chloraseptic Sore Throat Lozenge] 1 lozenge PO Q1HP PRN 11/12/19 Betamethasone Dipropionate [Betamethasone Diprop Augmented] 1 applic TOP BID 11/12/19 Bisacodyl [Dulcolax 5 mg Tablet] 5 mg PO DAILYP PRN 11/12/19 Budesonide/Formoterol Fumarate [Symbicort HFA 160-4.5 mcg Inhaler 6 gm] 2 puff IH BID 11/12/19 Calcium Carbonate [Calcium] 600 mg PO DAILY 11/12/19 Carboxymethylcellulose Sodium [Refresh Celluvisc Drops] 1 drop OU QHS 11/12/19 Carboxymethylcellulose Sodium [Refresh Tears] 1 drop OU QID 11/12/19 Cetirizine HCl [Zyrtec 10 mg Tablet] 10 mg PO DAILYP PRN 11/12/19 Cholecalciferol (Vitamin D3) [Vitamin D3 1000 Unit Tablet] 4,000 unit PO DAILY 11/12/19 Cranberry Fruit Extract [Cranberry 250 mg Capsule] 250 mg PO DAILY 11/12/19 Cyclosporine 0.05% Oph Emulsio [Restasis 0.05% Oph Emulsion Pf 0.4 ml] 1 drop OU Q12 11/12/19 Diphenhydramine HCl [Benadryl 25 mg Capsule] 25 mg PO Q8HP PRN 11/12/19 Furosemide [Lasix 40 mg Tablet] 40 mg PO BID 11/12/19 Gabapentin Enacarbil [Horizant] 600 mg PO QHS 11/12/19 Glimepiride [Amaryl] 2 mg PO DAILY 11/12/19 Hydroxychloroquine Sulfate [Plaquenil 200 mg Tablet] 200 mg PO Q12 11/12/19 Insulin Glargine,Hum.rec.anlog [Lantus Insulin 100 Unit/1 ml 10 ml] 5 units SQ QHS 11/12/19 Insulin Lispro [Humalog Insulin (Lispro) 100 unit/mL] 0 unit SUBCUT .SLD SCALE 11/12/19 Ipratropium/Albuterol Sulfate [Duoneb 3 ml Ampul] 3 ml NEB RTQ6HP PRN 11/12/19 Levothyroxine Sodium [Synthroid 0.088 mg Tablet] 0.088 mg PO Q6AM 11/12/19 Menthol/Camphor [Sarna Original 0.5%-0.5% Lotn] 1 applic TOP QIDP PRN 11/12/19 Metoprolol Succinate [Toprol Xl 25 mg Tab.sr] 25 mg PO QHS 11/12/19 Mineral Oil/Hydrophil Petrolat [Aquaphor Healing Ointment] 1 applic TOP BID 11/12/19 Mirabegron [Myrbetriq] 25 mg PO DAILYP PRN 11/12/19 Montelukast Sodium [Singulair 10 mg Tablet] 10 mg PO QHS 11/12/19 Naloxegol Oxalate [Movantik 25 mg Tablet] 25 mg PO DAILY 11/12/19 Ondansetron [Zofran Odt 4 mg Tablet] 4 mg PO Q6HP PRN 11/12/19 Oxycodone HCl [Oxy-Ir 5 mg Tablet] 10 mg PO BIDP PRN 11/12/19 Oxycodone HCl [Oxycodone HCl ER] 30 mg PO Q8 11/12/19 Pantoprazole Sodium [Protonix [address] Tablet] 40 mg PO Q12 11/12/19 Pimecrolimus 1 applic TOP BID 11/12/19 Polyethylene Glycol 3350 [Miralax Powder 17 gm/Packet] 1 packet PO BID 11/12/19 Polyethylene Glycol 3350 [Miralax Powder 17 gm/Packet] 1 packet PO DAILYP PRN 11/12/19 Polyvinyl Alcohol [Liquitears 1.4% Ophth Soln 15 ml] 1 drop OU QIDP PRN 11/12/19 Potassium Chloride [Klor-Con 10 Meq Tablet ER] 10 meq PO Q12 11/12/19 Pregabalin 150 mg PO Q8 11/12/19 Sennosides/Docusate Sodium [Senna Plus 8.6-50 mg Tablet] 1 tab PO BID 11/12/19 Sodium Chloride [Mellette Nasal [place] 44 ml Bottle] 1 spray NASL DAILYP PRN 11/12/19 History of Present Illiness History of Present Illness: NETTA RICO is a 69 year old female, Resident of the assisted at [place] she presented to the emergency room for evaluation of respiratory symptoms, shortness of breath, cough Hospital Course Hospital Course: Patient was admitted for the management of acute COPD exacerbation ,acute diastolic heart failure, MRSA UTI, Pseudomonas UTI. She was initially treated for acute COPD exacerbation with IV antibiotic and also Solu-Medrol. She also was seen by Dr. Rolon cardiology she was diagnosed with acute diastolic heart failure, she has a history of chronic diastolic heart failure. Patient is morbidly obese she has indwelling suprapubic catheter, the urine culture grew MRSA and Pseudomonas, MRSA is not a typical uropathogen the primary source of the MRSA was not apparent chest X-ray was clear there was no evidence of pneumonia ,patient medical history is very complicated she is very obese she was seen by physical therapy Physical Exam Vital Signs: Temp Pulse Resp BP Pulse Ox 97.4 F 84 16 143/52 H 94 11/27/19 15:30 11/27/19 15:30 11/27/19 15:30 11/27/19 15:30 11/27/19 15:30 Intake & Output 11/26/19 11/27/19 11/28/19 06:59 06:59 06:59 Intake Total 3057.5 1349.5 1440 Output Total 4025 6000 1150 Balance -967.5 -4650.5 290 Weight 175.8 kg 178 kg General appearance: PRESENT: no acute distress, morbidly obese Eye exam: PRESENT: PERRLA Respiratory exam: PRESENT: clear to auscultation pennie Cardiovascular exam: PRESENT: +S1, +S2 GI/Abdominal exam: PRESENT: soft Neurological exam: PRESENT: alert Results Laboratory Results: WBC 9.4 10^3/uL (4.0-10.5) 11/19/19 06:42 RBC 4.10 10^6/uL (3.72-5.28) 11/19/19 06:42 Hgb 12.8 g/dL (12.0-15.5) 11/19/19 06:42 Hct 37.9 % (36.0-47.0) 11/19/19 06:42 MCV 92 fl (80-97) 11/19/19 06:42 MCH 31.1 pg (27.0-33.4) 11/19/19 06:42 MCHC 33.7 g/dL (32.0-36.0) 11/19/19 06:42 RDW 14.5 % (11.5-14.0) H 11/19/19 06:42 Plt Count 205 10^3/uL (150-450) 11/19/19 06:42 Lymph % (Auto) 17.2 % (13-45) 11/19/19 06:42 [place] % (Auto) 9.4 % (3-13) 11/19/19 06:42 Eos % (Auto) 4.5 % (0-6) 11/19/19 06:42 Baso % (Auto) 0.4 % (0-2) 11/19/19 06:42 Absolute Neuts (auto) 6.5 10^3/uL (1.7-8.2) 11/19/19 06:42 Absolute Lymphs (auto) 1.6 10^3/uL (0.5-4.7) 11/19/19 06:42 Absolute Monos (auto) 0.9 10^3/uL (0.1-1.4) 11/19/19 06:42 Absolute Eos (auto) 0.4 10^3/uL (0.0-0.6) 11/19/19 06:42 Absolute Basos (auto) 0.0 10^3/uL (0.0-0.2) 11/19/19 06:42 Seg Neutrophils % 68.5 % (42-78) 11/19/19 06:42 Carbonic Acid 1.25 mmol/L (1.05-1.35) 11/15/19 15:55 HCO3/H2CO3 Ratio 19:1 11/15/19 15:55 ABG pH 7.39 (7.35-7.45) 11/15/19 15:55 ABG pCO2 41.5 mmHg (35-45) 11/15/19 15:55 ABG pO2 79.9 mmHg (80-100) L 11/15/19 15:55 ABG HCO3 24.6 mmol/L (20-24) H 11/15/19 15:55 ABG Total CO2 25.9 mmol/L (21-25) H 11/15/19 15:55 ABG O2 Saturation 95.7 % (94-98) 11/15/19 15:55 ABG Base Excess -0.3 mmol/L 11/15/19 15:55 FiO2 2 L 11/15/19 15:55 Sodium 135.9 mmol/L (137-145) L 11/19/19 06:42 Potassium 4.0 mmol/L (3.6-5.0) 11/19/19 06:42 Chloride 103 mmol/L (98-107) 11/19/19 06:42 Carbon Dioxide 27 mmol/L (22-30) 11/19/19 06:42 Anion Gap 6 (5-19) 11/19/19 06:42 BUN 20 mg/dL (7-20) 11/19/19 06:42 Creatinine 0.71 mg/dL (0.52-1.25) 11/25/19 09:14 Est GFR ( Amer) > 60 (>60) 11/25/19 09:14 Est GFR (Non-Af Amer) Cancelled 11/19/19 04:25 Est GFR (MDRD) Non-Af > 60 (>60) 11/25/19 09:14 Glucose 184 mg/dL (75-110) H 11/19/19 06:42 POC Glucose 175 mg/dL (70-110) H 11/27/19 15:32 Calcium 8.5 mg/dL (8.4-10.2) 11/19/19 06:42 Total Bilirubin 0.5 mg/dL (0.2-1.3) 11/19/19 06:42 Direct Bilirubin 0.0 mg/dL (0.0-0.4) 11/19/19 06:42 Neonat Total Bilirubin Not Reportable 11/19/19 06:42 Neonat Direct Bilirubin Not Reportable 11/19/19 06:42 Neonat Indirect Bili Not Reportable 11/19/19 06:42 AST 17 U/L (14-36) 11/19/19 06:42 ALT 13 U/L (<35) 11/19/19 06:42 Alkaline Phosphatase 80 U/L (38-126) 11/19/19 06:42 Creatine Kinase 73 U/L (30-135) 11/12/19 21:50 CK-MB (CK-2) 1.86 ng/mL (<4.55) 11/12/19 21:50 Troponin I < 0.012 ng/mL 11/12/19 21:50 NT-Pro-B Natriuret Pep 468 pg/mL (<125) H 11/11/19 16:42 Total Protein 5.8 g/dL (6.3-8.2) L 11/19/19 06:42 Albumin 3.0 g/dL (3.5-5.0) L 11/19/19 06:42 EGFR Cancelled 11/19/19 04:25 Urine Color DARK YELLOW 11/12/19 00:42 Urine Appearance CLOUDY 11/12/19 00:42 Urine pH 7.0 (5.0-9.0) 11/12/19 00:42 Ur Specific [place] 1.014 11/12/19 00:42 Urine Protein 100 mg/dL (NEGATIVE) H 11/12/19 00:42 Urine Glucose (UA) NEGATIVE mg/dL (NEGATIVE) 11/12/19 00:42 Urine Ketones NEGATIVE mg/dL (NEGATIVE) 11/12/19 00:42 Urine Blood SMALL (NEGATIVE) H 11/12/19 00:42 Urine Nitrite POSITIVE (NEGATIVE) H 11/12/19 00:42 Urine Bilirubin NEGATIVE (NEGATIVE) 11/12/19 00:42 Urine Urobilinogen NEGATIVE mg/dL (<2.0) 11/12/19 00:42 Ur Leukocyte Esterase LARGE (NEGATIVE) H 11/12/19 00:42 Urine WBC (Auto) >182 /HPF 11/12/19 00:42 Urine RBC (Auto) 37 /HPF 11/12/19 00:42 U Hyaline Cast (Auto) 12 /LPF 11/12/19 00:42 Urine Bacteria (Auto) TRACE /HPF 11/12/19 00:42 Urine WBC Clumps MANY /HPF 11/12/19 00:42 Squamous Epi Cells Auto 1 /HPF 11/12/19 00:42 U Non-Squamous Epis Auto 2 /HPF 11/12/19 00:42 Urine Mucus (Auto) RARE /LPF 11/12/19 00:42 Urine Ascorbic Acid NEGATIVE (NEGATIVE) 11/12/19 00:42 Time Trough Drawn 0914 11/25/19 09:14 Gentamicin Trough 0.8 ug/mL (<2.0) 11/25/19 09:14 11/11/19 11/12/19 11/12/19 16:42 10:45 15:10 CK-MB (CK-2) 1.23 1.29 1.58 Troponin I < 0.012 < 0.012 < 0.012 NT-Pro-B Natriuret Pep 468 H 11/12/19 21:50 CK-MB (CK-2) 1.86 Troponin I < 0.012 NT-Pro-B Natriuret Pep Impressions: Chest X-Ray 11/11/19 16:40 IMPRESSION: NO ACUTE RADIOGRAPHIC FINDING IN THE CHEST. Tibia/Fibula X-Ray 11/11/19 21:52 IMPRESSION: There are no findings to suggest an acute fracture or subluxation within the right tibia or fibula. Venous Doppler Study 11/12/19 00:00 IMPRESSION: Negative for DVT or SVT, as imaged. Cervical Spine CT 11/18/19 00:00 IMPRESSION: No acute fracture at the cervical spine. Degenerative changes. Head CT 11/18/19 00:00 IMPRESSION: No acute intracranial hemorrhage or depressed calvarial fracture. EVIDENCE OF ACUTE STROKE: NO. Chest X-Ray 11/22/19 00:00 IMPRESSION: NO ACUTE RADIOGRAPHIC FINDING IN THE CHEST. Plan Health Concerns: Patient should be moved out of bed every day to sit up in chair and she will need air mattress to prevent skin breakdown Stroke Is this a Stroke Patient?: No Acute Heart Failure - Is this a Heart Failure Patient?: No
[2019-11-27] MEDS: INSULIN GLARGINE,HUM.REC.ANLOG 1,000 UNIT/10 ML VIAL SUBCUT SCH (23:02)
[2019-11-27] MEDS: MONTELUKAST SODIUM 10 MG TABLET PO SCH (23:06)
[2019-11-27] MEDS: METOPROLOL SUCCINATE 25 MG TAB.SR.24H PO SCH (23:07)
[2019-11-28] MEDS: OXYCODONE HCL SR 10 MG TABLET PO SCH ×2 (06:44→15:56)
[2019-11-28] MEDS: LEVOTHYROXINE SODIUM 0.088 MG TABLET PO SCH (06:45)
[2019-11-28] MEDS: GABAPENTIN 100 MG CAPSULE PO SCH ×2 (06:45→15:55)
[2019-11-28] MEDS: PREGABALIN 75 MG CAPSULE PO SCH ×2 (06:45→15:55)
[2019-11-28] MEDS: INSULIN LISPRO 100 UNIT/ML 3 ML VIAL SUBCUT SCH ×3 (08:00→17:38)
[2019-11-28] MEDS: IPRATROPIUM/ALBUTEROL 0.5-2.5 MG/3 ML AMPUL NEB SCH ×2 (09:17→14:18)
[2019-11-28] MEDS: FUROSEMIDE INJ/PF 20 MG/2 ML SDV IV SCH (11:24)
[2019-11-28] MEDS: AMLODIPINE BESYLATE 5 MG TABLET PO SCH (11:25)
[2019-11-28] MEDS: GLIMEPIRIDE 1 MG TABLET PO SCH (11:26)
[2019-11-28] MEDS: SENNOSIDES/DOCUSATE 8.6-50 MG 1 EACH TABLET PO SCH ×2 (11:26→17:37)
[2019-11-28] MEDS: POTASSIUM CHLORIDE 10 MEQ TABLET.ER PO SCH (11:26)
[2019-11-28] MEDS: PANTOPRAZOLE SODIUM 40 MG TABLET.DR PO SCH (11:26)
[2019-11-28] MEDS: CALCIUM CARBONATE 500 MG TABLET PO SCH (11:26)
[2019-11-28] MEDS: GUAIFENESIN 600 MG TABLET.SA PO SCH (11:26)
[2019-11-28] MEDS: POLYETHYLENE GLYCOL 3350 POWDER 17 GM/1 PACKET PO SCH ×2 (11:28→17:38)
[2019-11-28] MEDS: ENOXAPARIN SODIUM INJ 40 MG/0.4 ML DISP.SYRIN SUBCUT SCH (11:29)
[2019-11-28] MEDS: HYDROXYCHLOROQUINE SULFATE 200 MG TABLET PO SCH (12:03)
[2019-11-28] MEDS: PANTOT AC/MIN OIL/PET HY-PHL OINT 50 GM TOP SCH ×2 (12:03→19:05)
[2019-11-28] MEDS: CARBOXYMETHYLCELLULOSE SOD 0.5% 0.4 ML DROPERETTE OU SCH ×3 (12:04→17:44)
[2019-11-28] MEDS: CYCLOSPORINE 0.05% OPH EMULSIO 0.4 ML DROPERETTE OU SCH (12:05)
[2019-11-28] MEDS: ALLOPURINOL 300 MG TABLET PO SCH (12:07)
[2019-11-28] MEDS: FLUTICASONE/VILANTEROL 200-25 MCG/DOSE IH SCH (15:59)
[2019-11-28 19:26] VITALS: BP 145/55
[2019-11-29] MEDS ORDERED: CALCIUM CARBONATE 600 MG TABLET PO SCH (10:00)
== END 2019-11-28 19:55 | DRG 291 ==
LOC: ER 16:25 → EH 11-12 00:53 → 3W 11-12 03:46 → 4N 11-18 23:39
PROVIDERS: ADMIT Internal Medicine; ATTEND Family Medicine
DX: I13.0 Hypertensive heart and chronic kidney disease with heart failure and stage 1 through stage 4 chronic kidney disease, or unspecified chronic kidney disease (principal); I50.33 Acute on chronic diastolic (congestive) heart failure; J96.22 Acute and chronic respiratory failure with hypercapnia; J96.21 Acute and chronic respiratory failure with hypoxia; J44.1 Chronic obstructive pulmonary disease with (acute) exacerbation; E66.2 Morbid (severe) obesity with alveolar hypoventilation; Z68.44 Body mass index [BMI] 60.0-69.9, adult; N39.0 Urinary tract infection, site not specified; E11.22 Type 2 diabetes mellitus with diabetic chronic kidney disease; E11.51 Type 2 diabetes mellitus with diabetic peripheral angiopathy without gangrene; B96.5 Pseudomonas (aeruginosa) (mallei) (pseudomallei) as the cause of diseases classified elsewhere; B95.62 Methicillin resistant Staphylococcus aureus infection as the cause of diseases classified elsewhere; N18.2 Chronic kidney disease, stage 2 (mild); S80.12XA Contusion of left lower leg, initial encounter; G89.29 Other chronic pain; E78.5 Hyperlipidemia, unspecified; E03.9 Hypothyroidism, unspecified; K21.9 Gastro-esophageal reflux disease without esophagitis; K44.9 Diaphragmatic hernia without obstruction or gangrene; M06.9 Rheumatoid arthritis, unspecified; M79.7 Fibromyalgia; F32.9 Major depressive disorder, single episode, unspecified; N31.9 Neuromuscular dysfunction of bladder, unspecified; X58.XXXA Exposure to other specified factors, initial encounter; Z79.4 Long term (current) use of insulin; Z87.891 Personal history of nicotine dependence; Z98.84 Bariatric surgery status; Z82.49 Family history of ischemic heart disease and other diseases of the circulatory system; Z79.899 Other long term (current) drug therapy; Z91.048 Other nonmedicinal substance allergy status; Z91.14 Patient's other noncompliance with medication regimen; Z88.6 Allergy status to analgesic agent; Z88.3 Allergy status to other anti-infective agents; Z88.0 Allergy status to penicillin; Z88.8 Allergy status to other drugs, medicaments and biological substances
CPT/HCPCS: 36415; 36600; 70450; 71045; 72125; 80048; 80053; 80170; 81001; 82550; 82553; 82565; 82803; 82962; 83880; 84484; 85025; 85027; 87040; 87086; 87088; 87186; 93005; 93010; 93306; 93971; 94640; 94660; 96374; 99285; J1580; J1650; J1815; J1940; J2920; J2930; J3490; J7060; J7620; S0119

== ENCOUNTER 2019-11-30 13:22 | Emergency (ER) | payer MEDICARE, MEDICAID ==
[2019-11-30 14:17] LABS: ABSOLUTE EOSINOPHILS # (AUTO) 0.1 10^3/uL (0.0-0.6); ABSOLUTE MONOCYTES (AUTO) 0.4 10^3/uL (0.1-1.4); ABSOLUTE NEUT (AUTO) 4.1 10^3/uL (1.7-8.2); BASOPHILS % (AUTO) 0.8 % (0-2); EOSINOPHILS % (AUTO) 1.3 % (0-6); HEMATOCRIT 40.6 % (36.0-47.0); HEMOGLOBIN 13.7 g/dL (12.0-15.5); LYMPHOCYTES % (AUTO) 17.9 % (13-45); MEAN CORPUSCULAR HEMOGLOBIN 31.3 pg (27.0-33.4); MEAN CORPUSCULAR HGB CONC 33.8 g/dL (32.0-36.0); MEAN CORPUSCULAR VOLUME 93 fl (80-97); MONOCYTES % (AUTO) 7.2 % (3-13); PLATELET COUNT 171 10^3/uL (150-450); RED BLOOD COUNT 4.38 10^6/uL (3.72-5.28); SEGMENTED NEUTROPHILS % (AUTO) 72.8 % (42-78); TOTAL CELLS COUNTED % (AUTO) 100 %; WHITE BLOOD COUNT 5.7 10^3/uL (4.0-10.5)
[2019-11-30 14:35] LABS: ALBUMIN 3.5 g/dL (3.5-5.0); ALKALINE PHOSPHATASE 97 U/L (38-126); ANION GAP 7 (5-19); ASPARTATE AMINO TRANSFERASE 25 U/L (14-36); BILIRUBIN,DIRECT 0.1 mg/dL (0.0-0.4); BILIRUBIN,TOTAL 0.6 mg/dL (0.2-1.3); BLOOD UREA NITROGEN 17 mg/dL (7-20); CALCIUM 9.2 mg/dL (8.4-10.2); CARBON DIOXIDE 35 mmol/L (22-30); CHLORIDE 94 mmol/L (98-107); GLUCOSE 192 mg/dL (75-110); POTASSIUM 4.5 mmol/L (3.6-5.0); TOTAL PROTEIN 6.4 g/dL (6.3-8.2)
--- NOTE | 2019-11-30 14:40 | RADIOLOGY REPORT (SQ) ---
EXAM DESCRIPTION: CHEST SINGLE VIEW COMPLETED DATE/TIME: 11/30/2019 2:10 pm REASON FOR STUDY: htn COMPARISON: 11/22/2019 EXAM PARAMETERS: NUMBER OF VIEWS: One view. TECHNIQUE: Single frontal radiographic view of the chest acquired. RADIATION DOSE: NA LIMITATIONS: None. FINDINGS: LUNGS AND PLEURA: Ill-defined opacification in the left base. The left hemidiaphragm is i ndistinct. MEDIASTINUM AND HILAR STRUCTURES: No masses. Contour normal. HEART AND VASCULAR STRUCTURES: The heart size is borderline. BONES: No acute findings. HARDWARE: None in the chest. OTHER: No other significant finding. IMPRESSION: Borderline cardiomegaly without pulmonary edema. Cannot exclude a limited left lower lo be pneumonia. TECHNICAL DOCUMENTATION: JOB ID: [id number] 2010 [employer]- All Rights Reserved Reading location - IP/workstation name: [email or web address]
[2019-11-30 14:44] LABS: APPEARANCE,URINE CLOUDY; BILIRUBIN,URINE NEGATIVE (NEGATIVE); COLOR,URINE YELLOW; GLUCOSE, URINE NEGATIVE (NEGATIVE); KETONES,URINE NEGATIVE (NEGATIVE); LEUKOCYTE ESTERASE,URINE LARGE (NEGATIVE); NITRITE,URINE POSITIVE (NEGATIVE); PROTEIN,URINE 30 mg/dL (NEGATIVE); URINE SPECIFIC GRAVITY 1.009; UROBILINOGEN,URINE NEGATIVE mg/dL (<2.0)
--- NOTE | 2019-11-30 14:45 | ER Document Report ---
Entered by EPIFANIO GUTIERREZ SCRIBE 11/30/19 1324 Acting as scribe for:SUSSY GASTON DO ED General - General Chief Complaint: Altered Mental Status Stated Complaint: ALTERED MENTAL STATUS Primary Care Provider: NAYLA GEE MD [Primary Care Provider] - Follow up as needed Information source: Emergency Med Personnel, Outside Facility Records Cannot obtain history due to: Altered mental status Notes: This 69 year old female patient presents to the emergency department today via EMS from [facility] for complaints of altered mental status per EMS. Patient was admitted here at this facility from 11/12/19 - 11/28/19 for respiratory failure. Patient is generally a poor historian at baseline according [facility]. She answers "i dont know" for most all questions although she does specifically mention right knee and right lower extremity pain. TRAVEL OUTSIDE OF THE [place] IN LAST 30 DAYS: No - Related Data Allergies/Adverse Reactions: ciprofloxacin [From Cipro] Allergy (Severe, Verified 08/27/19 16:02) Anaphylaxis Penicillins Allergy (Severe, Verified 08/27/19 16:02) Anaphylaxis adhesive tape [Adhesive Tape] Adverse Reaction (Severe, Verified 08/27/19 16:02) BLISTERS, SKIN BECOMES RAW indomethacin [From Indocin] Adverse Reaction (Severe, Verified 08/27/19 16:02) CAUSES SWELLING AND INFLAMMATION meperidine HCl [From Demerol] Adverse Reaction (Severe, Verified 08/27/19 16:02) Hallucinations Past Medical History - General Information source: Emergency Med Personnel, [facility] Records Cannot obtain history due to: Altered mental status - Social History Smoking Status: Unknown if Ever Smoked Lives with: Alf Family History: Reviewed & Not Pertinent, Hypertension - Past Medical History Cardiac Medical History: Reports: Hx Congestive Heart Failure, Hx Hypercholesterolemia, Hx Hypertension, Hx Peripheral Vascular Disease, Hx Heart Murmur Denies: Hx Heart Attack Pulmonary Medical History: Reports: Hx Asthma - severe,neb,inhaler, Hx Bronchitis Denies: Hx COPD, Hx Pneumonia, Hx Respiratory Failure, Hx Sleep Apnea, Hx Tuberculosis Neurological Medical History: Denies: Hx Cerebrovascular Accident, Hx Seizures, Hx Parkinson's Disease Endocrine Medical History: Reports: Hx Diabetes Mellitus Type 2, Hx Hypothyroidism Renal/ Medical History: Reports: Hx Ovarian Cysts. Denies: Hx Peritoneal Dialysis GI Medical History: Reports: Hx Gastroesophageal Reflux Disease, Hx Hiatal Hernia, Hx Irritable Bowel. Denies: Hx Pancreatitis Musculoskeletal Medical History: Reports Hx Arthritis - RA, Reports Hx Fibromyalgia, Denies Hx Systemic Lupus Erythematosus Psychiatric Medical History: Reports: Hx Depression Traumatic Medical History: Reports: Hx Fractures Past Surgical History: Reports: Hx Cholecystectomy, Hx Gastric Bypass Surgery - Lap Band, post in stomach for lap band , Hx Hysterectomy, Hx Orthopedic Surgery - right hip x3, left knee x1, Other - LAP-BAND procedures - Immunizations Hx Diphtheria, Pertussis, Tetanus Vaccination: Yes Hx Pneumococcal Vaccination: 10/11/12 Review of Systems - Review of Systems -: Yes ROS unobtainable due to patient's medical condition Physical Exam - Vital signs Vitals: Resp 14 11/30/19 13:30 - Notes Notes: Physical Exam: General: Alert, but quite slow to respond to questions. Baseline tremor. Morbidly obese. Screams out complaining of pain when any body part is lightly palpated. HEENT: Normocephalic. Atraumatic. PERRL. Extraocular movements intact. Oropharynx clear. Neck: Supple. Non-tender. Respiratory: No respiratory distress. Clear and equal breath sounds bilaterally. Cardiovascular: Regular rate and rhythm. Abdominal: Morbidly obese. Suprapubic catheter in place without surrounding eryt [place] or concern for infection. No distension. Normal Bowel Sounds. Back: No gross abnormalities. Extremities: Moves all four extremities. Screams out complaining of pain when any body part is lightly palpated. Neurological: Normal cognition. AAOx4. Normal speech. Psychological: Normal affect. Normal Mood. Skin: Bruises in various stages of healing across entire body. Course - Re-evaluation Re-evalutation: 11/30/19 17:10 MDM 69 year old sent from [facility] due to ALOC. She is alert here, however, slow to respond. Her workup here is reassuring. I have discussed this with the daughter and grand daughter. They have both displayed a bit of frustration at no cause being found for her progressive decline. 11/30/19 18:38 The pt returned here from the SNF and was just here for an extended stay. No evidence of CHF, CVA, sepsis, encephalopathy. SHe has had a progressive decline in function and carries a chronic UTI which may certainly contribute to this nice ladies symptoms. - Vital Signs Vital signs: Temp Pulse Resp BP Pulse Ox 97.7 F 14 151/91 H 99 11/30/19 13:31 11/30/19 17:01 11/30/19 17:01 11/30/19 17:01 - Laboratory Result Diagrams: 11/30/19 13:55 11/30/19 13:55 Laboratory results interpreted by me: 11/30/19 11/30/19 11/30/19 13:55 13:55 13:55 RDW 15.0 H VBG HCO3 Sodium 135.9 L Chloride 94 L Carbon Dioxide 35 H Est GFR (MDRD) Non-Af 54 L Glucose 192 H Urine Protein 30 H Urine Blood MODERATE H Urine Nitrite POSITIVE H Ur Leukocyte Esterase LARGE H 11/30/19 15:14 RDW VBG HCO3 35.5 H Sodium Chloride Carbon Dioxide Est GFR (MDRD) Non-Af Glucose Urine Protein Urine Blood Urine Nitrite Ur Leukocyte Esterase - Diagnostic Test Radiology reviewed: Image reviewed, Reports reviewed - EKG Interpretation by Me EKG shows normal: Sinus rhythm Rate: Normal Rhythm: NSR - NSR Left aixs [address] elevation or depression my interpretation. 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 use status Diabetes mellitus complication status: with other specified complication Qualified Code(s): E11.69 - Type 2 diabetes mellitus with other specified complication UTI (urinary tract infection) Qualifiers: Urinary tract infection type: site unspecified Hematuria presence: with hematuria Qualified Code(s): N39.0 - Urinary tract infection, site not specified Condition: Fair Disposition: HOME-SNF (ED ONLY) Instructions: Chronic Pain Control ([facility]), Contusion ([facility]), Sales Catheter Care ([facility]), Urinary Tract Infection ([facility]), Weakness ([facility]) Additional Instructions: See your doctor in follow up. Rest. Take your medicine as directed. Please return here for any problems or any concerns including, but not limited to f ever, change in level of consciousness, focal weakness or other concerns. We reccomend you see a neurologist in follow up. Discuss this with the primary care provider at [place]. Prescriptions: Cefdinir 300 mg PO DAILY #10 capsule Referrals: NAYLA GEE MD [Primary Care Provider] - Follow up as needed I personally performed the services described in the documentation, reviewed and edited the documentation which was dictated to the scribe in my presence, and it accurately records my words and actions.
[2019-11-30 15:28] LABS: VENOUS BLOOD BASE EXCESS 8.5 mmol/L; VENOUS BLOOD HCO3 35.5 mmol/L (20-32); VENOUS BLOOD PCO2 58.9 mmHg (35-63); VENOUS BLOOD PH 7.4 (7.30-7.42)
[2019-11-30] MEDS ORDERED: CEFTRIAXONE 1 GM/D5W RTU 1 GM/50 ML RTUPB IV ONE (17:21)
--- NOTE | 2019-11-30 18:27 | RADIOLOGY REPORT (SQ) ---
EXAM DESCRIPTION: CT HEAD WITHOUT COMPLETED DATE/TIME: 11/30/2019 5:08 pm REASON FOR STUDY: dizziness COMPARISON: 11/18/2019 TECHNIQUE: Axial images acquired through the brain without intravenous contrast. Images reviewed wi th bone, brain and subdural windows. Images stored on PACS. All CT scanners at this facility use dose modulation, iterative reconstruction, and/or weight based d osing when appropriate to reduce radiation dose to as low as reasonably achievable (ALARA). [facility]: Dose Right [facility]: CareDose [facility]: Dose Right [facility]: Teradose 4D [facility]: Smart Thirsty RADIATION DOSE: CT Rad equipment meets quality standard of care and radiation dose reduction techniq ues were employed. CTDIvol: 53.2 mGy. DLP: 991 mGy-cm. mGy. LIMITATIONS: Moderate motion obscures some detail. FINDINGS: VENTRICLES: Normal size and contour. CEREBRUM: No masses. No hemorrhage. No midline shift. No evidence for acute infarction. Normal gra y/white matter differentiation. No areas of low density in the white matter. CEREBELLUM: No masses. No hemorrhage. No alteration of density. No evidence for acute infarction. EXTRAAXIAL SPACES: No fluid collections. No masses. ORBITS AND GLOBE: No intra- or extraconal masses. Normal contour of globe without masses. CALVARIUM: No fracture. PARANASAL SINUSES: No fluid or mucosal thickening. SOFT TISSUES: No mass or hematoma. OTHER: No other significant finding. IMPRESSION: Moderate motion obscures detail. Within the limits of the exam there is no evidence of acute intracranial hemorrhage, mass, or acute territorial infarct. EVIDENCE OF ACUTE STROKE: NO. COMMENT: Quality ID # [id number]: Final reports with documentation of one or more dose reduction techniques (e.g., Automated exposure control, adjustment of the mA and/or kV according to patient size, use of iterative reconstruction technique) TECHNICAL DOCUMENTATION: JOB ID: [id number] 2010 [email or web address]- All Rights Reserved Reading location - IP/workstation name: [email or web address]
--- NOTE | 2019-11-30 21:21 | EKG REPORT ---
SEVERITY:- ABNORMAL ECG - SINUS RHYTHM FIRST DEGREE AV BLOCK LEFT AXIS DEVIATION : Confirmed by: Yani Rolon 30-Nov-2019 21:21:02
[2019-11-30 22:34] VITALS: BP 126/63
== END 2019-11-30 22:50 ==
LOC: ER 13:22
DX: N39.0 Urinary tract infection, site not specified (principal); E66.01 Morbid (severe) obesity due to excess calories; E11.69 Type 2 diabetes mellitus with other specified complication; R41.82 Altered mental status, unspecified; M25.561 Pain in right knee; M79.604 Pain in right leg; Z88.0 Allergy status to penicillin; Z88.8 Allergy status to other drugs, medicaments and biological substances; I50.9 Heart failure, unspecified; I11.0 Hypertensive heart disease with heart failure; J45.909 Unspecified asthma, uncomplicated
CPT/HCPCS: 93005; 99285; 96365; 36415; 87040; 83605; 83735; 85025; 80053; 81001; 84484; 82803; 71045; 70450; 93010; J0696

== ENCOUNTER 2019-12-01 00:28 | Emergency (ER) | payer MEDICARE, MEDICAID ==
[2019-12-01 00:56] VITALS: BP 114/92
[2019-12-01] MEDS ORDERED: OXYCODONE HCL IR 5 MG TABLET PO ONE (03:10)
--- NOTE | 2019-12-01 03:16 | ER Document Report ---
ED General - General Chief Complaint: Altered Mental Status Stated Complaint: AMS Time Seen by Provider: 12/01/19 02:21 Primary Care Provider: NAYLA GEE MD [Primary Care Provider] - 12/04/19 Notes: Patient is a 69-year-old female that comes from [facility] for chief complaint of altered mental status. Family states that earlier today she seemed drowsy, she was difficult to arouse, when she was aroused she was giving inconsistent answers and appeared confused. They state that she seemed this point intermittently over the course of the late morning and into the afternoon. They state that because of this they wanted her reevaluated. She did have a full work-up here and had been placed on a cephalosporin with possible urinary tract infection. Family does state that patient is acting back to her normal baseline with complete orientation, being talkative, and having no deficits at this time. Patient denies any current symptoms other than chronic back pain because she was not provided with her regular medication dose of pain medication. In addition to chronic pain medication she has a history of CHF, chronic kidney disease, hypertension, type 2 diabetes, morbid obesity, asthma, chronic respiratory failure, suprapubic catheter, and gastric bypass. Patient also has a history of chronic urinary tract infections. Patient actually was admitted by me about 2 weeks ago and discharged back to the nursing facility over the past couple of days. TRAVEL OUTSIDE OF THE [place] IN LAST 30 DAYS: No - Related Data Allergies/Adverse Reactions: ciprofloxacin [From Cipro] Allergy (Severe, Verified 12/01/19 00:48) Anaphylaxis Penicillins Allergy (Severe, Verified 12/01/19 00:48) Anaphylaxis adhesive tape [Adhesive Tape] Adverse Reaction (Severe, Verified 12/01/19 00:48) BLISTERS, SKIN BECOMES RAW indomethacin [From Indocin] Adverse Reaction (Severe, Verified 12/01/19 00:48) CAUSES SWELLING AND INFLAMMATION meperidine HCl [From Demerol] Adverse Reaction (Severe, Verified 12/01/19 00:48) Hallucinations Past Medical History - General Information source: Patient, Relative - Social History Smoking Status: Unknown if Ever Smoked Frequency of alcohol use: None Drug Abuse: None Lives with: Long Term Family History: Reviewed & Not Pertinent, Hypertension Patient has suicidal ideation: No Patient has homicidal ideation: No - Past Medical History Cardiac Medical History: Reports: Hx Congestive Heart Failure, Hx Hypercholesterolemia, Hx Hypertension, Hx Peripheral Vascular Disease, Hx Heart Murmur Denies: Hx Heart Attack Pulmonary Medical History: Reports: Hx Asthma - severe,neb,inhaler, Hx Bronchitis Denies: Hx COPD, Hx Pneumonia, Hx Respiratory Failure, Hx Sleep Apnea, Hx Tuberculosis Neurological Medical History: Denies: Hx Cerebrovascular Accident, Hx Seizures, Hx Parkinson's Disease Endocrine Medical History: Reports: Hx Diabetes Mellitus Type 2, Hx Hypothyroidism Renal/ Medical History: Reports: Hx Ovarian Cysts. Denies: Hx Peritoneal Dialysis GI Medical History: Reports: Hx Gastroesophageal Reflux Disease, Hx Hiatal Hernia, Hx Irritable Bowel. Denies: Hx Pancreatitis Musculoskeletal Medical History: Reports Hx Arthritis - RA, Reports Hx Fibromyalgia, Denies Hx Systemic Lupus Erythematosus Psychiatric Medical History: Reports: Hx Depression Traumatic Medical History: Reports: Hx Fractures Past Surgical History: Reports: Hx Cholecystectomy, Hx Gastric Bypass Surgery - Lap Band, post in stomach for lap band , Hx Hysterectomy, Hx Orthopedic Surgery - right hip x3, left knee x1, Other - LAP-BAND procedures - Immunizations Hx Diphtheria, Pertussis, Tetanus Vaccination: Yes Hx Pneumococcal Vaccination: 10/11/12 Review of Systems - Review of Systems Constitutional: No symptoms reported EENT: No symptoms reported Cardiovascular: No symptoms reported Respiratory: No symptoms reported Gastrointestinal: No symptoms reported Genitourinary: No symptoms reported Female Genitourinary: No symptoms reported Musculoskeletal: No symptoms reported Skin: No symptoms reported Hematologic/Lymphatic: No symptoms reported Neurological/Psychological: See HPI Physical Exam - Vital signs Vitals: Temp Pulse Resp BP Pulse Ox 98.4 F 91 16 114/92 H 100 12/01/19 00:54 12/01/19 00:54 12/01/19 00:54 12/01/19 00:54 12/01/19 00:54 - Notes Notes: GENERAL: Alert, interacts well. No acute distress. Morbidly obese. HEAD: Normocephalic, atraumatic. EYES: Pupils equal, round, and reactive to light. Extraocular movements intact. ENT: Oral mucosa moist, tongue midline. Oropharynx unremarkable. Airway patent. NECK: Full range of motion. Supple. Trachea midline. LUNGS: Clear to auscultation bilaterally, no wheezes, rales, or rhonchi. No respiratory distress. HEART: Regular rate and rhythm. No murmur ABDOMEN: Soft, non-tender. Non-distended. Bowel sounds present in all 4 quadrants. GENITOURINARY: No concerning findings noted, patient does have a suprapubic catheter in place. EXTREMITIES: Patient with chronic venous insufficiency skin changes bilaterally, old hematoma over the right anterior mid to distal jackson without concerning erythema, noted tenderness, or significant change from prior. No overt edema, normal distal neurovascular exam. BACK: no cervical, thoracic, lumbar midline tenderness. No saddle anesthesia, normal distal neurovascular exam. NEUROLOGICAL: Alert and oriented x3. Normal speech. Cranial nerves II through XII grossly intact. PSYCH: Normal affect, normal mood. Talkative and laughing SKIN: Warm, dry, normal turgor. No rashes or lesions noted. Course - Re-evaluation Re-evalutation: I am actually familiar with this patient because I recently evaluated her and admitted to the hospital for acute on chronic respiratory failure. Patient is very conversational, alert, she is not delirious or altered to any degree. She is very conversational, she answers all orientation questions correctly, she has no neurological deficits, she is smiling and well-appearing. Her vital signs are unremarkable. Patient had extensive work-up just a few hours ago including CAT scan of the head, CBC, venous blood gas, blood chemistry, cardiac enzymes, lactic acid, and urinalysis. She did not have a urine culture sent however so this will be sent now. I discussed with family and patient at length. Because patient has an unremarkable exam now, previously unremarkable work-up other than chronic urinary tract infection with pending culture, unremarkable vital signs, and she has a mental status at her baseline I feel that there is no additional indication for further testing or evaluation. They do state agreement, appreciation, and she states she is ready to go back to the long-term care facility. Patient discharged with return precautions. Patient and family state understanding and agreement. - Vital Signs Vital signs: Temp Pulse Resp BP Pulse Ox 98.4 F 91 16 114/92 H 100 12/01/19 00:54 12/01/19 00:54 12/01/19 00:54 12/01/19 00:54 12/01/19 00:54 Discharge - Discharge Clinical Impression: Transient alteration of awareness Condition: Stable Disposition: HOME, SELF-CARE Additional Instructions: Her evaluation at this time is reassuring. Her previous work-up results are reassuring. We do have a urine culture growing and you will be contacted for any treatment adjustments that are necessary. Follow closely with primary care. Return if she worsens including fever, vomiting, confusion, or any other concerning or worsening symptoms. Referrals: NAYLA GEE MD [Primary Care Provider] - 12/04/19
--- NOTE | 2019-12-01 10:46 | EKG REPORT ---
SEVERITY:- OTHERWISE NORMAL ECG - SINUS OR ECTOPIC ATRIAL RHYTHM LEFT AXIS DEVIATION : Confirmed by: Yani Rolon 01-Dec-2019 10:46:03
== END 2019-12-01 04:04 | disposition home or self-care (01) ==
LOC: ER 00:28
DX: R40.4 Transient alteration of awareness (principal); M54.9 Dorsalgia, unspecified; G89.29 Other chronic pain; E66.01 Morbid (severe) obesity due to excess calories; I10 Essential (primary) hypertension; E11.51 Type 2 diabetes mellitus with diabetic peripheral angiopathy without gangrene; S80.11XA Contusion of right lower leg, initial encounter; X58.XXXA Exposure to other specified factors, initial encounter; J45.909 Unspecified asthma, uncomplicated; Z79.899 Other long term (current) drug therapy; Z98.84 Bariatric surgery status; Z87.892 Personal history of anaphylaxis; Z88.1 Allergy status to other antibiotic agents; Z88.0 Allergy status to penicillin; Z91.048 Other nonmedicinal substance allergy status
CPT/HCPCS: 93005; 99285; 87086; 87088; 93010; A9270; 87186

== ENCOUNTER → 2020-05-28 | Outpatient (CLI) | payer MEDICARE, MEDICAID ==
[2020-05-28 16:52] LABS: ALBUMIN 3.5 g/dL (3.5-5.0); ALKALINE PHOSPHATASE 89 U/L (38-126); ASPARTATE AMINO TRANSFERASE 18 U/L (14-36); BILIRUBIN,TOTAL 0.3 mg/dL (0.2-1.3); TOTAL PROTEIN 6.6 g/dL (6.3-8.2)
== END ==
LOC: PNR 15:48
PROVIDERS: ATTEND Internal Medicine
DX: E79.0 Hyperuricemia without signs of inflammatory arthritis and tophaceous disease (principal); I25.10 Atherosclerotic heart disease of native coronary artery without angina pectoris; E78.5 Hyperlipidemia, unspecified
CPT/HCPCS: 80076

== ENCOUNTER 2020-07-06 07:31 | Inpatient (IN) | payer MEDICARE, MEDICAID ==
[2020-07-06] MEDS ORDERED: ONDANSETRON HCL INJ/PF 4 MG/2 ML SDV IV ONE (08:14)
--- NOTE | 2020-07-06 08:27 | ER Document Report ---
ED General - General Chief Complaint: Nausea/Vomiting Stated Complaint: NAUSEA/VOMITING Time Seen by Provider: 07/06/20 07:55 Primary Care Provider: NAYLA GEE MD [Primary Care Provider] - Follow up as needed TRAVEL OUTSIDE OF THE [place] IN LAST 30 DAYS: No - HPI Notes: Chief complaint: Abdominal pain, abdominal swelling, nausea and vomiting History of present illness: 70-year-old female alf patient followed by Dr. Gee with 3-day history of progressively worsening abdominal pain, abdominal swelling and nausea and vomiting. She has not had a bowel movement in approximately a week. Patient has a history of previous small bowel obstruction. This lady is essentially bedridden and has multiple significant long-term medical issues. Review of prior chart indicates: History of rheumatoid arthritis Morbid obesity Suprapubic catheter in situ with recurrent UTIs Chronic pain syndrome Narcotic habituation COPD Chronic diastolic heart failure - Related Data Allergies/Adverse Reactions: ciprofloxacin [From Cipro] Allergy (Severe, Verified 12/01/19 00:48) Anaphylaxis Penicillins Allergy (Severe, Verified 12/01/19 00:48) Anaphylaxis adhesive tape [Adhesive Tape] Adverse Reaction (Severe, Verified 12/01/19 00:48) BLISTERS, SKIN BECOMES RAW indomethacin [From Indocin] Adverse Reaction (Severe, Verified 12/01/19 00:48) CAUSES SWELLING AND INFLAMMATION meperidine HCl [From Demerol] Adverse Reaction (Severe, Verified 12/01/19 00:48) Hallucinations Home Medications: Lyrica, Oxycodone, Allopurinol, Baclofen, Synthroid, Protonix Past Medical History - General Information source: Patient, [facility] Records - Social History Smoking Status: Former Smoker Frequency of alcohol use: None Lives with: Correction Family History: Reviewed & Not Pertinent, Hypertension - Past Medical History Cardiac Medical History: Reports: Hx Congestive Heart Failure, Hx Hyper cholesterolemia, Hx Hypertension, Hx Peripheral Vascular Disease, Hx Heart Murmur Denies: Hx Heart Attack Pulmonary Medical History: Reports: Hx Asthma - severe,neb,inhaler, Hx Bronchitis, Hx COPD Denies: Hx Pneumonia, Hx Respiratory Failure, Hx Sleep Apnea, Hx Tuberculosis Neurological Medical History: Denies: Hx Cerebrovascular Accident, Hx Seizures, Hx Parkinson's Disease Endocrine Medical History: Reports: Hx Diabetes Mellitus Type 2, Hx Hypothyroidism Renal/ Medical History: Reports: Hx Ovarian Cysts. Denies: Hx Peritoneal Dialysis GI Medical History: Reports: Hx Gastroesophageal Reflux Disease, Hx Hiatal Hernia, Hx Irritable Bowel. Denies: Hx Pancreatitis Musculoskeletal Medical History: Reports Hx Arthritis - RA, Reports Hx Fib romyalgia, Denies Hx Systemic Lupus Erythematosus Psychiatric Medical History: Reports: Hx Depression Traumatic Medical History: Reports: Hx Fractures Past Surgical History: Reports: Hx Cholecystectomy, Hx Gastric Bypass Surgery - Lap Band, post in stomach for lap band , Hx Hysterectomy, Hx Orthopedic Surgery - right hip x3, left knee x1, Other - LAP-BAND procedures - Immunizations Hx Diphtheria, Pertussis, Tetanus Vaccination: Yes Hx Pneumococcal Vaccination: 10/11/12 Review of Systems - Review of Systems Notes: Constitutional: Negative for fever. HENT: Negative for sore throat. Eyes: Negative for visual changes. Cardiovascular: Negative for chest pain. Respiratory: Chronic shortness of breath. Gastrointestinal: As per HPI. Genitourinary: As per HPI. Musculoskeletal: Chronic musculoskeletal pain. Skin: Negative for rash. Neurological: Negative for headaches, focal weakness or numbness. 10 point ROS negative except as marked above and in HPI. Physical Exam - Vital signs Vitals: Temp Pulse Resp BP Pulse Ox 98.5 F 84 23 H 183/82 H 97 07/06/20 07:58 07/06/20 07:58 07/06/20 07:58 07/06/20 07:58 07/06/20 07:58 - Notes Notes: GENERAL: Morbidly obese elderly female. SKIN: Good turgor no rashes. HEAD: Normocephalic atraumatic. EYES: PERRLA. EOMI. Conjunctivae and sclerae clear. EARS: CANALS AND TMS CLEAR. NOSE: CLEAR. MOUTH: Moist mucosa. Good dentition. No stridor or edema. No drooling. NECK: Supple. No masses or thyromegaly. No adenopathy. Carotids 2+ without bruits. No JVD. BACK: Symmetrical without tenderness. CHEST: Respirations unlabored. Breath sounds clear and symmetrical. HEART: Regular rhythm. No murmur gallop or rub. ABDOMEN: Moderately distended. Mild epigastric tenderness. Soft without masses, organomegaly or rebound. Bowel sounds normally active. No bruits. Suprapubic catheter in situ. Multiple surgical scars present. GENITALIA: Deferred. EXTREMITIES: 3+ bilateral pretibial edema. No calf tenderness. Cap refill less than 1.5 seconds. Dorsalis pedis and posterior tibial pulses 3+ and symmetrical. NEUROLOGICAL: GCS 15. Alert and oriented x3. Fluent speech. Cranial nerves II through XII intact. Sensorimotor and cerebellar normal. Normal tone. PSYCHIATRIC: Appropriate affect. Course - Re-evaluation Re-evalutation: 07/06/20 13:09 We were unable to get a CT scan for the patient because of her massive size. We did get an acute obstructive series which radiologist read as negative. Went back to her old records and she has quite a long history of chronic constipation and this is probably the etiology of her present symptoms. She has a nonsurgical abdomen by exam. She did not have significant elevation of white count. She had a low-grade fever here and may have a mild urinary tract infection. Chest x-ray showed vascular congestion. Her BNP is elevated around 1200 and this is new. Given her some IV Lasix. She does have a lot of peripheral edema. EKG did not show any acute ST changes and she has had no complaint of chest pain here. Findings are communicated to her primary care physician Dr. Gee. He wishes to admit patient to telemetry at this time. - Vital Signs Vital signs: Temp Pulse Resp BP Pulse Ox 98.5 F 81 24 H 176/76 H 98 07/06/20 07:58 07/06/20 10:44 07/06/20 13:01 07/06/20 13:01 07/06/20 13:01 - Laboratory Result Diagrams: 07/06/20 09:49 07/06/20 09:49 Laboratory results interpreted by me: 07/06/20 07/06/20 07/06/20 07:46 09:49 09:49 WBC 12.5 H RDW 15.8 H Lymph % (Auto) 6.6 L Absolute Neuts (auto) 10.9 H Seg Neutrophils % 87.4 H Potassium 3.5 L Chloride 96 L Carbon Dioxide 36 H Glucose 241 H Direct Bilirubin 0.5 H NT-Pro-B Natriuret Pep Urine Protein >=500 H Urine Glucose (UA) 150 H Urine Blood MODERATE H Urine Nitrite (Reflex) POSITIVE H Leukocyte Esterase Rfl SMALL H 07/06/20 09:49 WBC RDW Lymph % (Auto) Absolute Neuts (auto) Seg Neutrophils % Potassium Chloride Carbon Dioxide Glucose Direct Bilirubin NT-Pro-B Natriuret Pep 2980 H Urine Protein Urine Glucose (UA) Urine Blood Urine Nitrite (Reflex) Leukocyte Esterase Rfl - EKG Interpretation by Me Additional EKG results interpreted by me: 07/06/20 09:32 Twelve-lead EKG reviewed by me contemporaneously: 0924 hrs. Indication for study: Dyspnea Rhythm: Normal sinus with first-degree AV block Rate: 81 Intervals: Prolonged MO interval 236 ms QRS axis: -[address]/T wave changes: No acute changes Comparison with prior tracing: Comparison with prior tracing from 12/01/2019 s hows interval development of first-degree AV block. Interpretation: Left axis deviation and first-degree AV block Discharge - Discharge Clinical Impression: Constipation by delayed colonic transit Vomiting Qualifiers: Vomiting type: unspecified Vomiting Intractability: unspecified Nausea presence: unspecified Qualified Code(s): R11.10 - Vomiting, unspecified Diastolic congestive heart failure Qualifiers: Heart failure chronicity: acute on chronic Qualified Code(s): I50.33 - Acute on chronic diastolic (congestive) heart failure Urinary tract infection Qualifiers: Urinary tract infection type: catheter-associated UTI Indwelling urinary catheter type: indwelling urethral catheter Encounter type: initial encounter Qualified Code(s): T83.511A - Infection and inflammatory reaction due to indwell ing urethral catheter, initial encounter; N39.0 - Urinary tract infection, site not specified Condition: Fair Disposition: ADMITTED INPATIENT Admitting Provider: Stephanie Referrals: NAYLA GEE MD [Primary Care Provider] - Follow up as needed
[2020-07-06 08:31] LABS: AMORPHOUS SEDIMENT,URINE TRACE /HPF; APPEARANCE,URINE SLIGHTLY-CLOUDY; BILIRUBIN,URINE NEGATIVE (NEGATIVE); COLOR,URINE YELLOW; GLUCOSE, URINE 150 mg/dL (NEGATIVE); KETONES,URINE NEGATIVE (NEGATIVE); PROTEIN,URINE >=500 mg/dL (NEGATIVE); URINE SPECIFIC GRAVITY 1.014; UROBILINOGEN,URINE NEGATIVE mg/dL (<2.0)
--- NOTE | 2020-07-06 08:50 | RADIOLOGY REPORT (SQ) ---
EXAM DESCRIPTION: CHEST SINGLE VIEW IMAGES COMPLETED DATE/TIME: 07/06/2020 8:39 am REASON FOR STUDY: chf COMPARISON: 11/30/2019. NUMBER OF VIEWS: One view. TECHNIQUE: Single frontal radiographic view of the chest acquired. LIMITATIONS: Limited due to the patient's body habitus. FINDINGS: LUNGS AND PLEURA: No opacities, masses or pneumothorax. No pleural effusion. MEDIASTINUM AND HILAR STRUCTURES: No masses or contour abnormality. HEART AND VASCULATURE: Cardiac enlargement. Mild vascular congestion. BONES: No acute findings. HARDWARE: None in the chest. OTHER: No other significant finding. IMPRESSION: CARDIAC ENLARGEMENT. VASCULAR CONGESTION. TECHNICAL DOCUMENTATION: JOB ID: [id number] 2010 [employer]- All Rights Reserved Reading location - IP/workstation name: [email or web address]
[2020-07-06 10:13] LABS: ABSOLUTE BASOPHILS # (AUTO) 0.1 10^3/uL (0.0-0.2); ABSOLUTE LYMPHOCYTES (AUTO) 0.8 10^3/uL (0.5-4.7); ABSOLUTE MONOCYTES (AUTO) 0.7 10^3/uL (0.1-1.4); ABSOLUTE NEUT (AUTO) 10.9 10^3/uL (1.7-8.2); BASOPHILS % (AUTO) 0.4 % (0-2); HEMATOCRIT 41.7 % (36.0-47.0); HEMOGLOBIN 13.9 g/dL (12.0-15.5); LYMPHOCYTES % (AUTO) 6.6 % (13-45); MEAN CORPUSCULAR HEMOGLOBIN 30.1 pg (27.0-33.4); MEAN CORPUSCULAR HGB CONC 33.4 g/dL (32.0-36.0); MEAN CORPUSCULAR VOLUME 90 fl (80-97); MONOCYTES % (AUTO) 5.6 % (3-13); PLATELET COUNT 230 10^3/uL (150-450); RED BLOOD COUNT 4.62 10^6/uL (3.72-5.28); RED CELL DISTRIBUTION WIDTH 15.8 % (11.5-14.0); SEGMENTED NEUTROPHILS % (AUTO) 87.4 % (42-78); TOTAL CELLS COUNTED % (AUTO) 100 %; WHITE BLOOD COUNT 12.5 10^3/uL (4.0-10.5)
[2020-07-06 10:15] LABS: PROTHROMBIN TIME 13.4 SEC (11.4-15.4)
[2020-07-06 10:16] LABS: PARTIAL THROMBOPLASTIN TIME 30.8 SEC (23.5-35.8)
[2020-07-06 10:22] LABS: ALBUMIN 3.9 g/dL (3.5-5.0); ALKALINE PHOSPHATASE 105 U/L (38-126); ANION GAP 9 (5-19); ASPARTATE AMINO TRANSFERASE 31 U/L (14-36); BILIRUBIN,DIRECT 0.5 mg/dL (0.0-0.4); BILIRUBIN,TOTAL 0.8 mg/dL (0.2-1.3); BLOOD UREA NITROGEN 18 mg/dL (7-20); CALCIUM 9.4 mg/dL (8.4-10.2); CARBON DIOXIDE 36 mmol/L (22-30); CHLORIDE 96 mmol/L (98-107); GLUCOSE 241 mg/dL (75-110); POTASSIUM 3.5 mmol/L (3.6-5.0); TOTAL PROTEIN 7.3 g/dL (6.3-8.2)
[2020-07-06 10:37] LABS: TROPONIN I 0.063 ng/mL
--- NOTE | 2020-07-06 10:41 | EKG REPORT ---
SEVERITY:- ABNORMAL ECG - SINUS RHYTHM FIRST DEGREE AV BLOCK LEFT ANTERIOR FASCICULAR BLOCK LVH BY VOLTAGE CONSIDER ANTERIOR INFARCT : Confirmed by: Erica Farris MD 06-Jul-2020 10:40:51
--- NOTE | 2020-07-06 10:43 | RADIOLOGY REPORT (SQ) ---
EXAM DESCRIPTION: ACUTE ABDOMEN SERIES IMAGES COMPLETED DATE/TIME: 07/06/2020 10:31 am REASON FOR STUDY: Generalized abdominal pain and vomiting COMPARISON: July 2019. NUMBER OF VIEWS: Two views. TECHNIQUE: Supine and erect/decubitus radiographic images of the abdomen acquired. LIMITATIONS: Limited due to the patient's body habitus. FINDINGS: FREE AIR: None. No abnormal gas collections. LUNG BASES: Clear. BOWEL GAS PATTERN: Nonobstructive pattern. No dilated loops or air fluid levels. CALCIFICATIONS: No suspicious calcifications. SOFT TISSUES: No gross mass or suggestion of organomegaly. HARDWARE: Gastric banding hardware. Right hip prosthesis. BONES: No acute fracture. No worrisome bone lesions. OTHER: No other significant finding. IMPRESSION: NO RADIOGRAPHIC EVIDENCE FOR ACUTE ABDOMINAL DISEASE. TECHNICAL DOCUMENTATION: JOB ID: [id number] 2010 [employer]- All Rights Reserved Reading location - IP/workstation name: [email or web address]
[2020-07-06] MEDS ORDERED: FUROSEMIDE INJ/PF 20 MG/2 ML SDV IV ONE (10:51)
[2020-07-06] MEDS ORDERED: DEXTROSE 40% GEL 15 GM TUBE PO PRN ×4 (16:51→16:58)
[2020-07-06] MEDS ORDERED: DEXTROSE 50%-WATER 25 GM/50 ML DISP.SYRIN IV PRN ×4 (16:51→16:58)
[2020-07-06] MEDS ORDERED: RINGERS SOLUTION,LACTATED 1,000 ML IV PRN (16:51)
[2020-07-06] MEDS ORDERED: GLUCAGON,HUMAN RECOMB 1 MG INJ SUBCUT PRN (16:51)
[2020-07-06] MEDS ORDERED: GLUCAGON,HUMAN RECOMB 1 MG INJ IM PRN (16:58)
[2020-07-06] MEDS ORDERED: PHARMACY COMMUNICATION ORDER MC NR (17:00)
[2020-07-06 17:59] LABS: INTERNATIONAL RATION (INR) 1.05; PROTHROMBIN TIME 13.9 SEC (11.4-15.4)
[2020-07-06 18:00] LABS: PARTIAL THROMBOPLASTIN TIME 29.3 SEC (23.5-35.8)
[2020-07-06 18:12] LABS: PHOSPHORUS 3.6 mg/dL (2.5-4.5)
[2020-07-06 18:13] LABS: ARTERIAL BLOOD BASE EXCESS 11.3 mmol/L; ARTERIAL BLOOD H2CO3 1.49 mmol/L (1.05-1.35); ARTERIAL BLOOD HCO3 36.5 mmol/L (20-24); ARTERIAL BLOOD O2 SATURATION 95.9 % (94-98); ARTERIAL BLOOD PCO2 49.4 mmHg (35-45); ARTERIAL BLOOD PH 7.49 (7.35-7.45); ARTERIAL BLOOD PO2 75.5 mmHg (80-100)
[2020-07-06 18:17] LABS: ARTERIAL BLOOD FIO2 1.5L
[2020-07-06 18:17] LABS: AMYLASE < 30 U/L (30-110)
[2020-07-06 18:26] LABS: CREATINE KINASE MB 1.44 ng/mL (<4.55); TROPONIN I 0.059 ng/mL
[2020-07-06 18:30] LABS: FREE T4 (FREE THYROXINE) 1.19 ng/dL (0.78-2.19)
[2020-07-06 18:44] LABS: THYROID STIMULATING HORMONE 1.03 uIU/mL (0.47-4.68)
--- NOTE | 2020-07-06 19:13 | PDOC H&P ---
History of Present Illness Admission Date/PCP: 07/06/20 14:28 NAYLA GEE MD History of Present Illness: NETTA RICO is a 70 year old female, She is a resident of [facility], she was transferred from the longterm to the emergency room for evaluation of persistent, intractable vomiting. There is associated abdominal pain according to the history she has not had a bowel movement in approximately a week In the emergency room attempt was made to Obtain a CAT scan of the abdomen and pelvis but because she is morbidly obese, body mass index 73.8, she did not fit into the CAT scan machine so this was not done.She is vomiting persistently we attempted to insert a nasogastric tube on the floor, this was not successful, patient refused further attempts by the nursing staff. She has a history of small bowel obstruction, she has indwelling chronic suprapubic ur inary catheter with chronic UTIs, morbidly obese bedbound very sedentary lifestyle.The laboratory data demonstrated leukocytosis WBC was 12,000 with a left shift there is grossly abnormal urinalysis Past Medical History Cardiac Medical History: Reports: Congestive Heart Failure, Hyperlipidema, Hypertension, Peripheral Vascular Disease, Heart Murmur Pulmonary Medical History: Reports: Asthma - severe,neb,inhaler, Bronchitis, Chronic Obstructive Pulmonary Disease (COPD) Endocrine Medical History: Reports: Diabetes Mellitus Type 2, Hypothyroidism GI Medical History: Reports: Gastroesophageal Reflux Disease, Hiatal Hernia Musculoskeltal Medical History: Reports: Arthritis - RA, Fibromyalgia Psychiatric Medical History: Reports: Depression Past Surgical History Past Surgical History: Reports: Cholecystectomy, Gastric Bypass Surgery - Lap Band, post in stomach for lap band , Hysterectomy, Orthopedic Surgery - right hip x3, left knee x1, Other - LAP-BAND procedures Social History Lives with: Prison Smoking Status: Former Smoker Frequency of Alcohol Use: None Hx Recreational Drug Use: No Drugs: None Hx Prescription Drug Abuse: No Family History Family History: Reviewed & Not Pertinent, Hypertension Parental Family History Reviewed: Yes Children Family History Reviewed: Yes Sibling(s) Family History Reviewed.: Yes Medication/Allergy Home Medications: Allopurinol [Zyloprim 300 mg Tablet] 300 mg PO DAILY 11/12/19 Amlodipine Besylate [Norvasc 5 mg Tablet] 5 mg PO DAILY 11/12/19 Baclofen [Baclofen 10 mg Tablet] 10 mg PO QID 11/12/19 Benzocaine/Menthol [Chloraseptic Sore Throat Lozenge] 1 lozenge PO Q1HP PRN 11/12/19 Bisacodyl [Dulcolax 5 mg Tablet] 5 mg PO DAILYP PRN 11/12/19 Budesonide/Formoterol Fumarate [Symbicort HFA 160-4.5 mcg Inhaler 6 gm] 2 puff IH BID 11/12/19 Calcium Carbonate [Calcium] 600 mg PO DAILY 11/12/19 Carboxymethylcellulose Sodium [Refresh Celluvisc Drops] 1 drop OU QHS 11/12/19 Carboxymethylcellulose Sodium [Refresh Tears] 1 drop OU QIDP PRN 11/12/19 Cetirizine HCl [Zyrtec 10 mg Tablet] 10 mg PO DAILY 11/12/19 Cholecalciferol (Vitamin D3) [Vitamin D3 1000 Unit Tablet] 4,000 unit PO DAILY 11/12/19 Cranberry Fruit Extract [Cranberry 250 mg Capsule] 250 mg PO DAILY 11/12/19 Cyclosporine 0.05% Oph Emulsio [Restasis 0.05% Oph Emulsion Pf 0.4 ml] 1 drop OU Q12 11/12/19 Diphenhydramine HCl [Benadryl 25 mg Capsule] 25 mg PO Q8HP PRN 11/12/19 Furosemide [Lasix 40 mg Tablet] 40 mg PO BID 11/12/19 Glimepiride [Amaryl] 2 mg PO DAILY 11/12/19 Hydroxychloroquine Sulfate [Plaquenil 200 mg Tablet] 200 mg PO Q12 11/12/19 Insulin Glargine,Hum.rec.anlog [Lantus Insulin 100 Unit/1 ml 10 ml] 5 units SQ QHS 11/12/19 Insulin Lispro [Humalog Insulin (Lispro) 100 unit/mL] 0 unit SUBCUT .SLD SCALE 11/12/19 Levothyroxine Sodium [Synthroid 0.088 mg Tablet] 0.088 mg PO Q6AM 11/12/19 Menthol/Camphor [Sarna Original 0.5%-0.5% Lotn] 1 applic TOP QIDP PRN 11/12/19 Metoprolol Succinate [Toprol Xl 25 mg Tab.sr] 25 mg PO QHS 11/12/19 Mineral Oil/Hydrophil Petrolat [Aquaphor Healing Ointment] 1 applic TOP BID 11/12/19 Mirabegron [Myrbetriq] 25 mg PO DAILY 11/12/19 Montelukast Sodium [Singulair 10 mg Tablet] 10 mg PO QHS 11/12/19 Naloxegol Oxalate [Movantik 25 mg Tablet] 25 mg PO DAILY 11/12/19 Ondansetron [Zofran Odt 4 mg Tablet] 4 mg PO Q6HP PRN 11/12/19 Oxycodone HCl [Oxy-Ir 5 mg Tablet] 10 mg PO BID 11/12/19 Pantoprazole Sodium [Protonix [address] Tablet] 40 mg PO Q12 11/12/19 Pimecrolimus 1 applic TOP BID 11/12/19 Polyethylene Glycol 3350 [Miralax Powder 17 gm/Packet] 1 packet PO BID 11/12/19 Polyethylene Glycol 3350 [Miralax Powder 17 gm/Packet] 1 packet PO DAILYP PRN 11/12/19 Polyvinyl Alcohol [Liquitears 1.4% Ophth Soln 15 ml] 1 drop OU QIDP PRN 11/12/19 Potassium Chloride [Klor-Con 10 Meq Tablet ER] 10 meq PO Q12 11/12/19 Pregabalin 150 mg PO Q8 11/12/19 Sennosides/Docusate Sodium [Senna Plus 8.6-50 mg Tablet] 1 tab PO BID 11/12/19 Sodium Chloride [Deary Nasal [place] 44 ml Bottle] 1 spray NASL DAILYP PRN 11/12/19 Fluconazole [Diflucan] 150 mg PO MO@1000 07/06/20 Menthol [Biofreeze] 1 applic TP Q6HP PRN 07/06/20 Oxycodone HCl [Oxycontin] 20 mg PO Q8HP PRN 07/06/20 Allergies/Adverse Reactions: ciprofloxacin [From Cipro] Allergy (Severe, Verified 12/01/19 00:48) Anaphylaxis Penicillins Allergy (Severe, Verified 12/01/19 00:48) Anaphylaxis adhesive tape [Adhesive Tape] Adverse Reaction (Severe, Verified 12/01/19 00:48) BLISTERS, SKIN BECOMES RAW indomethacin [From Indocin] Adverse Reaction (Severe, Verified 12/01/19 00:48) CAUSES SWELLING AND INFLAMMATION meperidine HCl [From Demerol] Adverse Reaction (Severe, Verified 12/01/19 00:48) Hallucinations Review of Systems Constitutional: ABSENT: chills, fever(s), headache(s), weight gain, weight loss Eyes: ABSENT: visual disturbances Ears: ABSENT: hearing changes Cardiovascular: ABSENT: chest pain, dyspnea on exertion, edema, orthropnea, palpitations Respiratory: ABSENT: cough, hemoptysis Gastrointestinal: PRESENT: abdominal pain, nausea, vomiting Genitourinary: ABSENT: dysuria, hematuria Musculoskeletal: ABSENT: joint swelling Integumentary: ABSENT: rash, wounds Neurological: ABSENT: abnormal gait, abnormal speech, confusion, dizziness, focal weakness, syncope Psychiatric: ABSENT: anxiety, depression, homidical ideation, suicidal ideation Endocrine: ABSENT: cold intolerance, heat intolerance, menstrual abnormalities, polydipsia, polyuria Hematologic/Lymphatic: ABSENT: easy bleeding, easy bruising, lymphadenopathy Physical Exam Vital Signs: Temp Pulse Resp BP Pulse Ox 98.3 F 81 22 H 153/66 H 100 07/06/20 15:01 07/06/20 10:44 07/06/20 16:01 07/06/20 16:01 07/06/20 16:01 Intake & Output 07/05/20 07/06/20 07/07/20 06:59 06:59 06:59 Output Total 800 Balance -800 Weight 189.1 kg General appearance: PRESENT: morbidly obese Head exam: PRESENT: atraumatic, normocephalic Eye exam: PRESENT: PERRLA Ear exam: PRESENT: normal external ear exam Mouth exam: PRESENT: moist, tongue midline Neck exam: PRESENT: full ROM Respiratory exam: PRESENT: clear to auscultation pennie Cardiovascular exam: PRESENT: RRR, +S1, +S2 Pulses: PRESENT: normal dorsalis pedis pul, +2 pedal pulses bilateral Vascular exam: PRESENT: normal capillary refill GI/Abdominal exam: PRESENT: normal bowel sounds, soft Rectal exam: PRESENT: deferred Neurological exam: PRESENT: alert, CN II-XII grossly intact. ABSENT: motor se nsory deficit Psychiatric exam: PRESENT: appropriate affect, normal mood Skin exam: PRESENT: dry, intact, warm. ABSENT: cyanosis, rash Results Laboratory Results: 07/06/20 09:49 07/06/20 09:49 07/06/20 07/06/20 07/06/20 07:46 09:49 09:49 WBC 12.5 H RBC 4.62 Hgb 13.9 Hct 41.7 MCV 90 MCH 30.1 MCHC 33.4 RDW 15.8 H Plt Count 230 Seg Neutrophils % 87.4 H Carbonic Acid HCO3/H2CO3 Ratio ABG pH ABG pCO2 ABG pO2 ABG HCO3 ABG O2 Saturation ABG Base Excess FiO2 Sodium 140.7 Potassium 3.5 L Chloride 96 L Carbon Dioxide 36 H Anion Gap 9 BUN 18 Creatinine 0.57 Est GFR ( Amer) > 60 Glucose 241 H Lactic Acid Calcium 9.4 Phosphorus Magnesium 2.0 Total Bilirubin 0.8 AST 31 Alkaline Phosphatase 105 Ammonia Total Protein 7.3 Albumin 3.9 Amylase Lipase 33.9 TSH Free T4 Urine Color YELLOW Urine Appearance SLIGHTLY-CLOUDY Urine pH 7.0 Ur Specific [place] 1.014 Urine Protein >=500 H Urine Glucose (UA) 150 H Urine Ketones NEGATIVE Urine Blood MODERATE H Urine RBC (Auto) 13 07/06/20 07/06/20 07/06/20 09:49 17:38 17:38 WBC RBC Hgb Hct MCV MCH MCHC RDW Plt Count Seg Neutrophils % Carbonic Acid HCO3/H2CO3 Ratio ABG pH ABG pCO2 ABG pO2 ABG HCO3 ABG O2 Saturation ABG Base Excess FiO2 Sodium Potassium Chloride Carbon Dioxide Anion Gap BUN Creatinine Est GFR ( Amer) Glucose Lactic Acid 1.2 Calcium Phosphorus 3.6 Magnesium 2.0 Total Bilirubin AST Alkaline Phosphatase Ammonia < 8.7 L Total Protein Albumin Amylase < 30 L Lipase 38.9 TSH Free T4 Urine Color Urine Appearance Urine pH Ur Specific [place] Urine Protein Urine Glucose (UA) Urine Ketones Urine Blood Urine RBC (Auto) 07/06/20 07/06/20 17:38 17:56 WBC RBC Hgb Hct MCV MCH MCHC RDW Plt Count Seg Neutrophils % Carbonic Acid 1.49 H HCO3/H2CO3 Ratio 24:1 ABG pH 7.49 H ABG pCO2 49.4 H ABG pO2 75.5 L ABG HCO3 36.5 H ABG O2 Saturation 95.9 ABG Base Excess 11.3 FiO2 1.5L Sodium Potassium Chloride Carbon Dioxide Anion Gap BUN Creatinine Est GFR ( Amer) Glucose Lactic Acid Calcium Phosphorus Magnesium Total Bilirubin AST Alkaline Phosphatase Ammonia Total Protein Albumin Amylase Lipase TSH 1.03 Free T4 1.19 Urine Color Urine Appearance Urine pH Ur Specific [place] Urine Protein Urine Glucose (UA) Urine Ketones Urine Blood Urine RBC (Auto) 07/06/20 07/06/20 07/06/20 09:49 17:38 17:38 Creatine Kinase 90 CK-MB (CK-2) Troponin I 0.063 NT-Pro-B Natriuret Pep 2980 H 3650 H 07/06/20 17:38 Creatine Kinase CK-MB (CK-2) 1.44 Troponin I 0.059 NT-Pro-B Natriuret Pep Impressions: Chest X-Ray 07/06/20 08:13 IMPRESSION: CARDIAC ENLARGEMENT. VASCULAR CONGESTION. Acute Abdomen Series 07/06/20 09:37 IMPRESSION: NO RADIOGRAPHIC EVIDENCE FOR ACUTE ABDOMINAL DISEASE. Assessment & Plan - Diagnosis (1) Persistent vomiting Is this a current diagnosis for this admission?: Yes Plan: The differential diagnosis is long including small bowel obstruction, infection, it could be from UTI, she is prone to UTI she has chronic indwelling urinary catheter, she will empirically be treated with antibiotic. Unfortunately we could not obtain sensitive imaging, KUB was nondiagnostic she be kept n.p.o. for now (2) Metabolic alkalosis with respiratory acidosis Is this a current diagnosis for this admission?: Yes Plan: She has metabolic alkalosis with respiratory acidosis this is probably from contraction alkalosis - Time Time Spent: Greater than 70 Minutes Medications reviewed and adjusted accordingly: Yes Anticipated Discharge Disposition: Home, Self Care Anticipated Discharge Timeframe: within 72 hours - Inpatient Certification Based on my medical assessment, after consideration of the patient's comorbidities, presenting symptoms, or acuity I expect that the services needed warrant INPATIENT care.: Yes I certify that my determination is in accordance with my understanding of Medicare's requirements for reasonable and necessary INPATIENT services [42 CFR 412.3e].: Yes
[2020-07-06] MEDS: INSULIN LISPRO 100 UNIT/ML 3 ML VIAL SUBCUT SCH (19:22)
[2020-07-06] MEDS ORDERED: AZTREONAM INJ 1 GM VIAL ONE (21:22)
[2020-07-06] MEDS: AZTREONAM 1 GM in DEXTROSE 5%-WATER 50 ML IV SCH (21:38)
[2020-07-07] MEDS: INSULIN LISPRO 100 UNIT/ML 3 ML VIAL SUBCUT SCH ×4 (00:08→17:47)
[2020-07-07] MEDS ORDERED: AZTREONAM INJ 1 GM VIAL ONE (02:09)
[2020-07-07] MEDS: AZTREONAM 1 GM in DEXTROSE 5%-WATER 50 ML IV SCH ×3 (03:00→18:07)
[2020-07-07 03:22] LABS: CREATINE KINASE MB 1.13 ng/mL (<4.55); TROPONIN I 0.064 ng/mL
[2020-07-07] MEDS ORDERED: ENALAPRILAT DIHYDRATE INJ/PF 2.5 MG/2 ML SDV IV ONE ×2 (07:00→07:02)
[2020-07-07 09:01] LABS: ABSOLUTE LYMPHOCYTES (AUTO) 1.3 10^3/uL (0.5-4.7); ABSOLUTE MONOCYTES (AUTO) 0.9 10^3/uL (0.1-1.4); ABSOLUTE NEUT (AUTO) 7.8 10^3/uL (1.7-8.2); BASOPHILS % (AUTO) 0.2 % (0-2); EOSINOPHILS % (AUTO) 0.1 % (0-6); HEMATOCRIT 39.4 % (36.0-47.0); HEMOGLOBIN 13.3 g/dL (12.0-15.5); LYMPHOCYTES % (AUTO) 12.7 % (13-45); MEAN CORPUSCULAR HEMOGLOBIN 30.2 pg (27.0-33.4); MEAN CORPUSCULAR HGB CONC 33.7 g/dL (32.0-36.0); MEAN CORPUSCULAR VOLUME 90 fl (80-97); MONOCYTES % (AUTO) 8.6 % (3-13); PLATELET COUNT 203 10^3/uL (150-450); RED BLOOD COUNT 4.38 10^6/uL (3.72-5.28); RED CELL DISTRIBUTION WIDTH 15.8 % (11.5-14.0); SEGMENTED NEUTROPHILS % (AUTO) 78.4 % (42-78); TOTAL CELLS COUNTED % (AUTO) 100 %; WHITE BLOOD COUNT 9.9 10^3/uL (4.0-10.5)
[2020-07-07 09:11] LABS: CHOLESTEROL 174.81 mg/dL (0-200); TRIGLYCERIDES 68 mg/dL (<150)
[2020-07-07 09:21] LABS: DIRECT LDL 97 mg/dL (<100)
[2020-07-07] MEDS: ENOXAPARIN SODIUM INJ 40 MG/0.4 ML DISP.SYRIN SUBCUT SCH ×2 (10:07→10:21)
[2020-07-07 11:51] LABS: ALBUMIN 3.2 g/dL (3.5-5.0); ALKALINE PHOSPHATASE 79 U/L (38-126); ANION GAP 6 (5-19); ASPARTATE AMINO TRANSFERASE 25 U/L (14-36); BILIRUBIN,DIRECT 0.4 mg/dL (0.0-0.4); BILIRUBIN,TOTAL 0.8 mg/dL (0.2-1.3); BLOOD UREA NITROGEN 20 mg/dL (7-20); CALCIUM 8.8 mg/dL (8.4-10.2); CARBON DIOXIDE 35 mmol/L (22-30); CHLORIDE 98 mmol/L (98-107); CREATINE KINASE 70 U/L (30-135); GLUCOSE 201 mg/dL (75-110)
[2020-07-07 12:03] LABS: CREATINE KINASE MB 0.73 ng/mL (<4.55); TROPONIN I 0.044 ng/mL
[2020-07-07] MEDS: ENALAPRILAT DIHYDRATE INJ/PF 2.5 MG/2 ML SDV IV SCH ×2 (12:09→17:48)
[2020-07-07] MEDS: POTASSI CL 20 MEQ/50 ML RIDER 20 MEQ/50 ML RTUPB IV SCH ×2 (13:18→17:59)
--- NOTE | 2020-07-07 16:42 | PDOC PROGRESS REPORT ---
Subjective Progress Note for:: 07/07/20 Subjective:: Patient seen by the bedside, she has not had any vomiting today, she also had a bowel movement, she has low potassium,, she was kept n.p.o. Reason For Visit: INTRACTABLE VOMITING,RECURRENT UTI,MORBID OBESITY Physical Exam Vital Signs: Temp Pulse Resp BP Pulse Ox 97.8 F 89 17 185/63 H 98 07/07/20 11:42 07/07/20 12:09 07/07/20 11:42 07/07/20 12:09 07/07/20 11:42 Intake & Output 07/06/20 07/07/20 07/08/20 06:59 06:59 06:59 Intake Total 100 Output Total 1300 225 Balance -1200 -225 Weight 189.1 kg General appearance: PRESENT: no acute distress Eye exam: PRESENT: PERRLA Respiratory exam: PRESENT: clear to auscultation pennie Cardiovascular exam: PRESENT: +S1, +S2 GI/Abdominal exam: PRESENT: soft Neurological exam: PRESENT: alert Results Laboratory Results: 07/07/20 07:59 07/07/20 11:24 07/06/20 07/06/20 07/06/20 17:38 17:38 17:38 WBC RBC Hgb Hct MCV MCH MCHC RDW Plt Count Seg Neutrophils % Carbonic Acid HCO3/H2CO3 Ratio ABG pH ABG pCO2 ABG pO2 ABG HCO3 ABG O2 Saturation ABG Base Excess FiO2 Sodium Potassium Chloride Carbon Dioxide Anion Gap BUN Creatinine Est GFR ( Amer) Glucose Calcium Phosphorus 3.6 Magnesium 2.0 Total Bilirubin AST Alkaline Phosphatase Ammonia < 8.7 L Total Protein Albumin Triglycerides Cholesterol LDL Cholesterol Direct VLDL Cholesterol HDL Cholesterol Amylase < 30 L Lipase 38.9 TSH 1.03 Free T4 1.19 07/06/20 07/07/20 07/07/20 17:56 07:59 07:59 WBC 9.9 RBC 4.38 Hgb 13.3 Hct 39.4 MCV 90 MCH 30.2 MCHC 33.7 RDW 15.8 H Plt Count 203 Seg Neutrophils % 78.4 H Carbonic Acid 1.49 H HCO3/H2CO3 Ratio 24:1 ABG pH 7.49 H ABG pCO2 49.4 H ABG pO2 75.5 L ABG HCO3 36.5 H ABG O2 Saturation 95.9 ABG Base Excess 11.3 FiO2 1.5L Sodium Potassium Chloride Carbon Dioxide Anion Gap BUN Creatinine Est GFR ( Amer) Glucose Calcium Phosphorus Magnesium Total Bilirubin AST Alkaline Phosphatase Ammonia Total Protein Albumin Triglycerides 68 Cholesterol 174.81 LDL Cholesterol Direct 97 VLDL Cholesterol 14.0 HDL Cholesterol 72 Amylase Lipase TSH Free T4 07/07/20 11:24 WBC RBC Hgb Hct MCV MCH MCHC RDW Plt Count Seg Neutrophils % Carbonic Acid HCO3/H2CO3 Ratio ABG pH ABG pCO2 ABG pO2 ABG HCO3 ABG O2 Saturation ABG Base Excess FiO2 Sodium 139.1 Potassium 3.0 L* Chloride 98 Carbon Dioxide 35 H Anion Gap 6 BUN 20 Creatinine 0.56 Est GFR ( Amer) > 60 Glucose 201 H Calcium 8.8 Phosphorus Magnesium Total Bilirubin 0.8 AST 25 Alkaline Phosphatase 79 Ammonia Total Protein 6.0 L Albumin 3.2 L Triglycerides Cholesterol LDL Cholesterol Direct VLDL Cholesterol HDL Cholesterol Amylase Lipase TSH Free T4 07/06/20 07/06/20 07/06/20 09:49 17:38 17:38 Creatine Kinase 90 CK-MB (CK-2) Troponin I 0.063 NT-Pro-B Natriuret Pep 2980 H 3650 H 07/06/20 07/07/20 07/07/20 17:38 02:23 02:23 Creatine Kinase 88 CK-MB (CK-2) 1.44 1.13 Troponin I 0.059 0.064 NT-Pro-B Natriuret Pep 07/07/20 07/07/20 11:24 11:24 Creatine Kinase 70 CK-MB (CK-2) 0.73 Troponin I 0.044 NT-Pro-B Natriuret Pep Impressions: Chest X-Ray 07/06/20 08:13 IMPRESSION: CARDIAC ENLARGEMENT. VASCULAR CONGESTION. Acute Abdomen Series 07/06/20 09:37 IMPRESSION: NO RADIOGRAPHIC EVIDENCE FOR ACUTE ABDOMINAL DISEASE. Assessment & Plan - Diagnosis (1) Persistent vomiting Is this a current diagnosis for this admission?: Yes Plan: The vomiting has stopped, this is probably from UTI (2) Metabolic alkalosis with respiratory acidosis Is this a current diagnosis for this admission?: Yes (3) Urinary tract infection Qualifiers: Urinary tract infection type: catheter-associated UTI Indwelling urinary catheter type: indwelling urethral catheter Encounter type: initial encounter Qualified Code(s): T83.511A - Infection and inflammatory reaction due to indwelling urethral catheter, initial encounter; N39.0 - Urinary tract infection, site not specified Is this a current diagnosis for this admission?: Yes Plan: Continue antibiotic - Time Time Spent with patient: 25-34 minutes Level of Care: IMCU Medications reviewed and adjusted accordingly: Yes Anticipated discharge: SNF Anticipated DC Timeframe: within 72 hours
[2020-07-07] MEDS ORDERED: BISACODYL 5 MG TABEC PO PRN (16:43)
[2020-07-07] MEDS ORDERED: DIPHENHYDRAMINE HCL 25 MG CAPSULE PO PRN (16:43)
[2020-07-07] MEDS ORDERED: POLYETHYLENE GLYCOL 3350 POWDER 17 GM/1 PACKET PO PRN (16:43)
[2020-07-07] MEDS ORDERED: (PENDING PHARMACY ID) (Carboxymethylcellulose Sodium [Refresh Tears] 1 DROP) OU PRN (16:43)
[2020-07-07] MEDS ORDERED: BENZOCAINE/MENTHOL SORE THROAT LOZENGE PO PRN (16:43)
[2020-07-07] MEDS ORDERED: (PENDING PHARMACY ID) (Naloxegol Oxalate 25 MG) PO SCH (16:45)
[2020-07-07] MEDS ORDERED: CRANBERRY FRUIT EXTRACT 250 MG PO SCH (16:45)
[2020-07-07] MEDS ORDERED: (PENDING PHARMACY ID) (Mirabegron [Myrbetriq] 25 MG) PO SCH (16:45)
[2020-07-07] MEDS ORDERED: PIMECROLIMUS TOP SCH (18:00)
[2020-07-07] MEDS: CHOLECALCIFEROL (D3) 1,000 UNIT (25 MCG) TABLET PO SCH (18:15)
[2020-07-07] MEDS: FUROSEMIDE 40 MG TABLET PO SCH (19:45)
[2020-07-07] MEDS: BACLOFEN 10 MG TABLET PO SCH ×2 (19:45→22:26)
[2020-07-07] MEDS: SENNOSIDES/DOCUSATE 8.6-50 MG 1 EACH TABLET PO SCH (19:45)
[2020-07-07] MEDS: OXYCODONE HCL IR 5 MG TABLET PO SCH (19:45)
[2020-07-07] MEDS: CALCIUM CARBONATE 600 MG TABLET PO SCH (19:48)
[2020-07-07] MEDS: AMLODIPINE BESYLATE 5 MG TABLET PO SCH (19:49)
[2020-07-07] MEDS: PANTOPRAZOLE SODIUM 40 MG TABLET.DR PO SCH (19:49)
[2020-07-07] MEDS: POTASSIUM CHLORIDE 10 MEQ TABLET.ER PO SCH ×2 (19:50→22:26)
[2020-07-07] MEDS: POLYETHYLENE GLYCOL 3350 POWDER 17 GM/1 PACKET PO SCH (19:50)
[2020-07-07] MEDS: CETIRIZINE 10 MG TABLET PO SCH (19:51)
[2020-07-07] MEDS: ONDANSETRON 4 MG TAB.RAPDIS PO PRN (19:58)
[2020-07-07] MEDS ORDERED: CARBOXYMETHYLCELLULOSE SODIUM OU SCH (22:00)
[2020-07-07] MEDS ORDERED: POTASSIUM CHLORIDE 10 MEQ TABLET.ER PO ONE (22:23)
[2020-07-07] MEDS ORDERED: INSULIN GLARGINE,HUM.REC.ANLOG 1,000 UNIT/10 ML VIAL (PYX) SUBCUT ONE (22:23)
[2020-07-07] MEDS: METOPROLOL SUCCINATE 25 MG TAB.SR.24H PO SCH (22:26)
[2020-07-07] MEDS: PREGABALIN 75 MG CAPSULE PO SCH (22:26)
[2020-07-07] MEDS: INSULIN GLARGINE,HUM.REC.ANLOG 1,000 UNIT/10 ML VIAL SUBCUT SCH (22:28)
[2020-07-07] MEDS: ALLOPURINOL 300 MG TABLET PO SCH (22:36)
[2020-07-07] MEDS ORDERED: HYDROXYCHLOROQUINE SULFATE 200 MG TABLET ONE (22:58)
[2020-07-07] MEDS ORDERED: LEVOTHYROXINE SODIUM 0.088 MG TABLET ONE (22:59)
[2020-07-07] MEDS: CYCLOSPORINE 0.05% OPH EMULSIO 0.4 ML DROPERETTE OU SCH (23:07)
[2020-07-07] MEDS: LEVOTHYROXINE SODIUM 0.088 MG TABLET PO SCH (23:08)
[2020-07-07] MEDS: HYDROXYCHLOROQUINE SULFATE 200 MG TABLET PO SCH (23:08)
[2020-07-08] MEDS: AZTREONAM 1 GM in DEXTROSE 5%-WATER 50 ML IV SCH ×2 (03:27→09:12)
[2020-07-08] MEDS ORDERED: LEVOTHYROXINE SODIUM 0.088 MG TABLET ONE (06:08)
[2020-07-08 06:20] LABS: ABSOLUTE EOSINOPHILS # (AUTO) 0.1 10^3/uL (0.0-0.6); ABSOLUTE LYMPHOCYTES (AUTO) 1.9 10^3/uL (0.5-4.7); ABSOLUTE MONOCYTES (AUTO) 0.9 10^3/uL (0.1-1.4); ABSOLUTE NEUT (AUTO) 5.8 10^3/uL (1.7-8.2); BASOPHILS % (AUTO) 0.5 % (0-2); EOSINOPHILS % (AUTO) 0.9 % (0-6); HEMOGLOBIN 13.2 g/dL (12.0-15.5); LYMPHOCYTES % (AUTO) 21.7 % (13-45); MEAN CORPUSCULAR HEMOGLOBIN 30.2 pg (27.0-33.4); MEAN CORPUSCULAR HGB CONC 33.9 g/dL (32.0-36.0); MEAN CORPUSCULAR VOLUME 89 fl (80-97); PLATELET COUNT 179 10^3/uL (150-450); RED BLOOD COUNT 4.38 10^6/uL (3.72-5.28); RED CELL DISTRIBUTION WIDTH 15.4 % (11.5-14.0); SEGMENTED NEUTROPHILS % (AUTO) 66.9 % (42-78); TOTAL CELLS COUNTED % (AUTO) 100 %; WHITE BLOOD COUNT 8.7 10^3/uL (4.0-10.5)
[2020-07-08] MEDS: INSULIN LISPRO 100 UNIT/ML 3 ML VIAL SUBCUT SCH ×4 (06:28→19:42)
[2020-07-08] MEDS: PREGABALIN 75 MG CAPSULE PO SCH ×3 (06:30→21:59)
[2020-07-08] MEDS: PANTOPRAZOLE SODIUM 40 MG TABLET.DR PO SCH ×2 (06:30→19:35)
[2020-07-08] MEDS: LEVOTHYROXINE SODIUM 0.088 MG TABLET PO SCH (06:30)
[2020-07-08] MEDS: CETIRIZINE 10 MG TABLET PO SCH (11:29)
[2020-07-08] MEDS: CALCIUM CARBONATE 600 MG TABLET PO SCH (11:30)
[2020-07-08] MEDS: AMLODIPINE BESYLATE 5 MG TABLET PO SCH (11:36)
[2020-07-08] MEDS: OXYCODONE HCL IR 5 MG TABLET PO SCH ×2 (11:36→19:35)
[2020-07-08] MEDS: POTASSIUM CHLORIDE 10 MEQ TABLET.ER PO SCH ×2 (11:39→22:00)
[2020-07-08] MEDS: SENNOSIDES/DOCUSATE 8.6-50 MG 1 EACH TABLET PO SCH ×2 (11:40→19:35)
[2020-07-08] MEDS: FUROSEMIDE 40 MG TABLET PO SCH ×2 (11:40→19:41)
[2020-07-08] MEDS: ENOXAPARIN SODIUM INJ 40 MG/0.4 ML DISP.SYRIN SUBCUT SCH (11:42)
[2020-07-08] MEDS: BACLOFEN 10 MG TABLET PO SCH ×4 (11:43→21:59)
[2020-07-08] MEDS: HYDROXYCHLOROQUINE SULFATE 200 MG TABLET PO SCH ×2 (11:44→22:01)
[2020-07-08] MEDS: ALLOPURINOL 300 MG TABLET PO SCH (11:45)
[2020-07-08] MEDS: ONDANSETRON 4 MG TAB.RAPDIS PO PRN (11:47)
[2020-07-08] MEDS: POLYETHYLENE GLYCOL 3350 POWDER 17 GM/1 PACKET PO SCH ×2 (11:47→19:37)
[2020-07-08] MEDS: CYCLOSPORINE 0.05% OPH EMULSIO 0.4 ML DROPERETTE OU SCH ×2 (11:51→22:00)
[2020-07-08] MEDS: CHOLECALCIFEROL (D3) 1,000 UNIT (25 MCG) TABLET PO SCH (11:51)
[2020-07-08] MEDS: FLUTICASONE/VILANTEROL 200-25 MCG/DOSE IH SCH (11:52)
[2020-07-08] MEDS: NORMAL SALINE IV SCH (19:45)
[2020-07-08] MEDS: AZTREONAM IV SCH (19:45)
[2020-07-08 20:10] LABS: ALKALINE PHOSPHATASE 71 U/L (38-126); ASPARTATE AMINO TRANSFERASE 18 U/L (14-36); BILIRUBIN,DIRECT 0.2 mg/dL (0.0-0.4); BILIRUBIN,TOTAL 0.5 mg/dL (0.2-1.3); BLOOD UREA NITROGEN 16 mg/dL (7-20); CALCIUM 8.4 mg/dL (8.4-10.2); CARBON DIOXIDE 38 mmol/L (22-30); CHLORIDE 96 mmol/L (98-107); GLUCOSE 173 mg/dL (75-110); POTASSIUM 3.5 mmol/L (3.6-5.0); TOTAL PROTEIN 5.6 g/dL (6.3-8.2)
[2020-07-08 20:11] LABS: ANION GAP 3 (5-19)
[2020-07-08] MEDS: METOPROLOL SUCCINATE 25 MG TAB.SR.24H PO SCH (21:58)
[2020-07-08] MEDS: INSULIN GLARGINE,HUM.REC.ANLOG 1,000 UNIT/10 ML VIAL SUBCUT SCH (21:59)
[2020-07-08] MEDS: CARBOXYMETHYLCELLULOSE SOD 0.5% 0.4 ML DROPERETTE OU SCH (22:15)
[2020-07-08] MEDS ORDERED: NORMAL SALINE 250 ML with FUROSEMIDE 250 MG IV PRN ×2 (22:32)
--- NOTE | 2020-07-08 22:37 | PDOC PROGRESS REPORT ---
Subjective Progress Note for:: 07/08/20 Subjective:: Patient is volume overloaded with anasarca, she probably have nephrotic syndrome, there is significant proteinuria, start Lasix infusion Reason For Visit: INTRACTABLE VOMITING,RECURRENT UTI,MORBID OBESITY Physical Exam Vital Signs: Temp Pulse Resp BP Pulse Ox 97.8 F 73 21 H 133/48 H 100 07/08/20 16:00 07/08/20 16:00 07/08/20 16:00 07/08/20 16:00 07/08/20 16:00 Intake & Output 07/07/20 07/08/20 07/09/20 06:59 06:59 06:59 Intake Total 100 450 750 Output Total 1300 1500 1700 Balance -1200 -1050 -950 Weight 189.1 kg 189 kg 189 kg General appearance: PRESENT: morbidly obese Eye exam: PRESENT: PERRLA Respiratory exam: PRESENT: clear to auscultation pennie Cardiovascular exam: PRESENT: +S1, +S2 GI/Abdominal exam: PRESENT: soft Neurological exam: PRESENT: alert Results Laboratory Results: 07/08/20 05:34 07/08/20 19:43 07/08/20 07/08/20 05:34 19:43 WBC 8.7 RBC 4.38 Hgb 13.2 Hct 39.0 MCV 89 MCH 30.2 MCHC 33.9 RDW 15.4 H Plt Count 179 Seg Neutrophils % 66.9 Sodium 136.6 L Potassium 3.5 L Chloride 96 L Carbon Dioxide 38 H Anion Gap 3 L BUN 16 Creatinine 0.62 Est GFR ( Amer) > 60 Glucose 173 H Calcium 8.4 Total Bilirubin 0.5 AST 18 Alkaline Phosphatase 71 Total Protein 5.6 L Albumin 3.0 L 07/06/20 07:46 Catheterized Urine Urine Culture - Final Pseudomonas Aeruginosa 07/06/20 07/06/20 07/06/20 09:49 17:38 17:38 Creatine Kinase 90 CK-MB (CK-2) Troponin I 0.063 NT-Pro-B Natriuret Pep 2980 H 3650 H 07/06/20 07/07/20 07/07/20 17:38 02:23 02:23 Creatine Kinase 88 CK-MB (CK-2) 1.44 1.13 Troponin I 0.059 0.064 NT-Pro-B Natriuret Pep 07/07/20 07/07/20 11:24 11:24 Creatine Kinase 70 CK-MB (CK-2) 0.73 Troponin I 0.044 NT-Pro-B Natriuret Pep Impressions: Chest X-Ray 07/06/20 08:13 IMPRESSION: CARDIAC ENLARGEMENT. VASCULAR CONGESTION. Acute Abdomen Series 07/06/20 09:37 IMPRESSION: NO RADIOGRAPHIC EVIDENCE FOR ACUTE ABDOMINAL DISEASE. Assessment & Plan - Diagnosis (1) Persistent vomiting Is this a current diagnosis for this admission?: Yes Plan: The vomiting has stopped, this is probably from UTI (2) Metabolic alkalosis with respiratory acidosis Is this a current diagnosis for this admission?: Yes (3) Urinary tract infection Qualifiers: Urinary tract infection type: catheter-associated UTI Indwelling urinary catheter type: indwelling urethral catheter Encounter type: initial encounter Qualified Code(s): T83.511A - Infection and inflammatory reaction due to indwelling urethral catheter, initial encounter; N39.0 - Urinary tract infection, site not specified Is this a current diagnosis for this admission?: Yes Plan: Continue antibiotic (4) Anasarca Is this a current diagnosis for this admission?: Yes Plan: Start furosemide infusion - Time Time Spent with patient: 25-34 minutes Level of Care: IMCU Medications reviewed and adjusted accordingly: Yes Anticipated discharge: Home Anticipated DC Timeframe: within 72 hours
[2020-07-09] MEDS: INSULIN LISPRO 100 UNIT/ML 3 ML VIAL SUBCUT SCH ×4 (00:22→17:20)
[2020-07-09] MEDS: AZTREONAM IV SCH ×2 (02:49→09:21)
[2020-07-09] MEDS: NORMAL SALINE IV SCH ×2 (02:49→09:21)
[2020-07-09] MEDS: PANTOPRAZOLE SODIUM 40 MG TABLET.DR PO SCH ×2 (06:32→17:26)
[2020-07-09] MEDS: PREGABALIN 75 MG CAPSULE PO SCH ×3 (06:32→21:47)
[2020-07-09] MEDS: ONDANSETRON 4 MG TAB.RAPDIS PO PRN (06:32)
[2020-07-09] MEDS: LEVOTHYROXINE SODIUM 0.088 MG TABLET PO SCH (06:32)
[2020-07-09 07:54] LABS: UR PRO/CREAT RATIO RESULT 4.8 mg/mg (0.0-0.2); URINE CREATININE 26.4 mg/dL (15-278); URINE PROTEIN 127.5 mg/dL (<12)
[2020-07-09] MEDS: POLYETHYLENE GLYCOL 3350 POWDER 17 GM/1 PACKET PO SCH ×2 (09:22→17:26)
[2020-07-09] MEDS: BACLOFEN 10 MG TABLET PO SCH ×4 (09:23→21:45)
[2020-07-09] MEDS: POTASSIUM CHLORIDE 10 MEQ TABLET.ER PO SCH ×2 (09:23→21:46)
[2020-07-09] MEDS: CALCIUM CARBONATE 600 MG TABLET PO SCH (09:23)
[2020-07-09] MEDS: CYCLOSPORINE 0.05% OPH EMULSIO 0.4 ML DROPERETTE OU SCH ×2 (09:23→21:47)
[2020-07-09] MEDS: FLUTICASONE/VILANTEROL 200-25 MCG/DOSE IH SCH (09:23)
[2020-07-09] MEDS: OXYCODONE HCL IR 5 MG TABLET PO SCH (09:24)
[2020-07-09] MEDS: HYDROXYCHLOROQUINE SULFATE 200 MG TABLET PO SCH ×2 (09:25→21:46)
[2020-07-09] MEDS: CHOLECALCIFEROL (D3) 1,000 UNIT (25 MCG) TABLET PO SCH (09:25)
[2020-07-09] MEDS: AMLODIPINE BESYLATE 5 MG TABLET PO SCH (09:25)
[2020-07-09] MEDS: SENNOSIDES/DOCUSATE 8.6-50 MG 1 EACH TABLET PO SCH ×2 (09:26→17:26)
[2020-07-09] MEDS: ALLOPURINOL 300 MG TABLET PO SCH (09:26)
[2020-07-09] MEDS: CETIRIZINE 10 MG TABLET PO SCH (09:26)
[2020-07-09] MEDS: ENOXAPARIN SODIUM INJ 40 MG/0.4 ML DISP.SYRIN SUBCUT SCH (09:26)
[2020-07-09] MEDS ORDERED: OXYCODONE HCL SR 10 MG TABLET PO PRN (09:58)
[2020-07-09] MEDS: NORMAL SALINE 250 ML with FUROSEMIDE 250 MG IV PRN ×2 (11:58)
[2020-07-09] MEDS: AZTREONAM 1 GM in DEXTROSE 5%-WATER 50 ML IV SCH (17:25)
[2020-07-09] MEDS: DOCUSATE SODIUM 100 MG CAPSULE PO SCH (19:05)
--- NOTE | 2020-07-09 20:08 | PDOC PROGRESS REPORT ---
Subjective Progress Note for:: 07/09/20 Subjective:: Patient seen by the bedside, she has nephrotic syndrome, with tremendous anasarca, she is started on furosemide infusion Reason For Visit: INTRACTABLE VOMITING,RECURRENT UTI,MORBID OBESITY Physical Exam Vital Signs: Temp Pulse Resp BP Pulse Ox 97.4 F 61 20 142/54 H 99 07/09/20 15:53 07/09/20 15:53 07/09/20 15:53 07/09/20 15:53 07/09/20 15:53 Intake & Output 07/08/20 07/09/20 07/10/20 06:59 06:59 06:59 Intake Total 450 1330 1477 Output Total 1500 3350 2400 Balance -1049 Weight 189 kg 173.2 kg 189 kg General appearance: PRESENT: no acute distress Eye exam: PRESENT: PERRLA Respiratory exam: PRESENT: clear to auscultation pennie Cardiovascular exam: PRESENT: +S1, +S2 GI/Abdominal exam: PRESENT: soft Neurological exam: PRESENT: alert, CN II-XII grossly intact Results Laboratory Results: 07/09/20 05:53 07/08/20 19:43 07/08/20 07/09/20 19:43 05:53 WBC Cancelled RBC Cancelled Hgb Cancelled Hct Cancelled MCV Cancelled MCH Cancelled MCHC Cancelled RDW Cancelled Plt Count Cancelled Seg Neutrophils % Cancelled Sodium 136.6 L Potassium 3.5 L Chloride 96 L Carbon Dioxide 38 H Anion Gap 3 L BUN 16 Creatinine 0.62 Est GFR ( Amer) > 60 Glucose 173 H Calcium 8.4 Total Bilirubin 0.5 AST 18 Alkaline Phosphatase 71 Total Protein 5.6 L Albumin 3.0 L 07/06/20 07/06/20 07/06/20 09:49 17:38 17:38 Creatine Kinase 90 CK-MB (CK-2) Troponin I 0.063 NT-Pro-B Natriuret Pep 2980 H 3650 H 07/06/20 07/07/20 07/07/20 17:38 02:23 02:23 Creatine Kinase 88 CK-MB (CK-2) 1.44 1.13 Troponin I 0.059 0.064 NT-Pro-B Natriuret Pep 07/07/20 07/07/20 11:24 11:24 Creatine Kinase 70 CK-MB (CK-2) 0.73 Troponin I 0.044 NT-Pro-B Natriuret Pep Impressions: Chest X-Ray 07/06/20 08:13 IMPRESSION: CARDIAC ENLARGEMENT. VASCULAR CONGESTION. Acute Abdomen Series 07/06/20 09:37 IMPRESSION: NO RADIOGRAPHIC EVIDENCE FOR ACUTE ABDOMINAL DISEASE. Assessment & Plan - Diagnosis (1) Persistent vomiting Is this a current diagnosis for this admission?: Yes Plan: The vomiting has stopped, this is probably from UTI (2) Metabolic alkalosis with respiratory acidosis Is this a current diagnosis for this admission?: Yes (3) Urinary tract infection Qualifiers: Urinary tract infection type: catheter-associated UTI Indwelling urinary catheter type: indwelling urethral catheter Encounter type: initial encounter Qualified Code(s): T83.511A - Infection and inflammatory reaction due to indwelling urethral catheter, initial encounter; N39.0 - Urinary tract infection, site not specified Is this a current diagnosis for this admission?: Yes Plan: Continue antibiotic (4) Anasarca Is this a current diagnosis for this admission?: Yes Plan: Start furosemide infusion (5) Nephrotic syndrome Is this a current diagnosis for this admission?: Yes - Time Time Spent with patient: 25-34 minutes Level of Care: IMCU Anticipated discharge: Home Anticipated DC Timeframe: within 72 hours - Inpatient Certification Based on my medical assessment, after consideration of the patient's comorbidities, presenting symptoms, or acuity I expect that the services needed warrant INPATIENT care.: Yes
[2020-07-09 20:53] LABS: ALBUMIN 2.8 g/dL (3.5-5.0); ALKALINE PHOSPHATASE 71 U/L (38-126); ASPARTATE AMINO TRANSFERASE 17 U/L (14-36); BILIRUBIN,DIRECT 0.3 mg/dL (0.0-0.4); BILIRUBIN,TOTAL 0.5 mg/dL (0.2-1.3); BLOOD UREA NITROGEN 17 mg/dL (7-20); CALCIUM 7.8 mg/dL (8.4-10.2); CARBON DIOXIDE 36 mmol/L (22-30); CHLORIDE 95 mmol/L (98-107); GLUCOSE 199 mg/dL (75-110); POTASSIUM 3.4 mmol/L (3.6-5.0); TOTAL PROTEIN 5.4 g/dL (6.3-8.2)
[2020-07-09 20:54] LABS: ANION GAP 4 (5-19)
[2020-07-09] MEDS: METOPROLOL SUCCINATE 25 MG TAB.SR.24H PO SCH (21:46)
[2020-07-09] MEDS ORDERED: OXYCODONE HCL SR 10 MG TABLET PO SCH (22:00)
[2020-07-09] MEDS: INSULIN GLARGINE,HUM.REC.ANLOG 1,000 UNIT/10 ML VIAL SUBCUT SCH (22:15)
[2020-07-09] MEDS: CARBOXYMETHYLCELLULOSE SOD 0.5% 0.4 ML DROPERETTE OU SCH (22:48)
[2020-07-10] MEDS: INSULIN LISPRO 100 UNIT/ML 3 ML VIAL SUBCUT SCH ×5 (00:12→22:01)
[2020-07-10] MEDS: AZTREONAM 1 GM in DEXTROSE 5%-WATER 50 ML IV SCH ×3 (01:37→18:52)
[2020-07-10] MEDS: PREGABALIN 75 MG CAPSULE PO SCH ×3 (05:51→21:54)
[2020-07-10] MEDS: LEVOTHYROXINE SODIUM 0.088 MG TABLET PO SCH (05:52)
[2020-07-10] MEDS: OXYCODONE HCL SR 10 MG TABLET PO SCH ×2 (05:52→18:47)
[2020-07-10] MEDS: PANTOPRAZOLE SODIUM 40 MG TABLET.DR PO SCH ×2 (05:52→17:04)
--- NOTE | 2020-07-10 09:26 | PDOC CONSULTATION ---
Consultation Consult Date: 07/09/20 Provider Consulted: RONEL POOLE Consult reason:: Pain Management History of Present Illness Admission Date/PCP: 07/06/20 14:28 NAYLA GEE MD History of Present Illness: NETTA RICO is a 70 year old female that was admitted on 07/06/2020 from [facility] d/t intractable nausea/vomiting x's 24 hours. Patient notes that she had not had a bowel movement in over 1 week. NG tube unable to be place and due to body habits and excessive BMI patient is unable to have CT scan. Review of her H &P and current problem list patient is being treated for small bowel obstruction, UTI, CHF, and nephrotic syndrome. States that she has an extensive hx of chronic bowel dilation w/ chronic small bowel obstructions. She has been on chronic opioid therapy for more than 10 years and notes that she has battled OIC for some time. She has tried and failed multiple medications but states that when she was taking colace and linzess she was having regular large soft BM's. Most recently she notes that 1 week ago she started to note some abdominal bloating and tenderness in which she alerted the staff that she was experiencing constipation despite having some bowel movements. Currently she notes that she is not passing gas and not having bowel movements. She is taking miralax 17gm BID as well as colace 100mg BID. She continues to take her chronic pain regimen of Oxycontin 20 mg TID and Oxycodone 10 mg IR BID for her RA pain symptoms. She is very reluctant to change her chronic pain regimen at this time. Past Medical History Cardiac Medical History: Reports: Congestive Heart Failure, Hyperlipidema, Hypertension, Peripheral Vascular Disease, Heart Murmur Denies: Myocardial Infarction Pulmonary Medical History: Reports: Asthma - severe,neb,inhaler, Bronchitis, Chronic Obstructive Pulmonary Disease (COPD) Denies: Pneumonia, Respiratory Failure, Sleep Apnea, Tuberculosis Neurological Medical History: Denies: Seizures Endocrine Medical History: Reports: Diabetes Mellitus Type 2, Hypothyroidism GI Medical History: Reports: Gastroesophageal Reflux Disease, Hiatal Hernia Musculoskeltal Medical History: Reports: Arthritis - RA, Fibromyalgia Psychiatric Medical History: Reports: Depression Hematology: Denies: Anemia, Hemophilia, Sickle Cell Disease Past Surgical History Past Surgical History: Reports: Cholecystectomy, Gastric Bypass Surgery - Lap Band, post in stomach for lap band , Hysterectomy, Orthopedic Surgery - right hip x3, left knee x1, Other - LAP-BAND procedures Denies: Amputation Social History Lives with: [facility] Smoking Status: Former Smoker Frequency of Alcohol Use: None Hx Recreational Drug Use: No Drugs: None Hx Prescription Drug Abuse: No Family History Family History: Reviewed & Not Pertinent, Hypertension Parental Family History Reviewed: No Children Family History Reviewed: NA Sibling(s) Family History Reviewed.: NA Medication/Allergy Home Medications: Allopurinol [Zyloprim 300 mg Tablet] 300 mg PO DAILY 11/12/19 Amlodipine Besylate [Norvasc 5 mg Tablet] 5 mg PO DAILY 11/12/19 Baclofen [Baclofen 10 mg Tablet] 10 mg PO QID 11/12/19 Benzocaine/Menthol [Chloraseptic Sore Throat Lozenge] 1 lozenge PO Q1HP PRN 11/12/19 Bisacodyl [Dulcolax 5 mg Tablet] 5 mg PO DAILYP PRN 11/12/19 Budesonide/Formoterol Fumarate [Symbicort HFA 160-4.5 mcg Inhaler 6 gm] 2 puff IH BID 11/12/19 Calcium Carbonate [Calcium] 600 mg PO DAILY 11/12/19 Carboxymethylcellulose Sodium [Refresh Celluvisc Drops] 1 drop OU QHS 11/12/19 Carboxymethylcellulose Sodium [Refresh Tears] 1 drop OU QIDP PRN 11/12/19 Cetirizine HCl [Zyrtec 10 mg Tablet] 10 mg PO DAILY 11/12/19 Cholecalciferol (Vitamin D3) [Vitamin D3 1000 Unit Tablet] 4,000 unit PO DAILY 11/12/19 Cranberry Fruit Extract [Cranberry 250 mg Capsule] 250 mg PO DAILY 11/12/19 Cyclosporine 0.05% Oph Emulsio [Restasis 0.05% Oph Emulsion Pf 0.4 ml] 1 drop OU Q12 11/12/19 Diphenhydramine HCl [Benadryl 25 mg Capsule] 25 mg PO Q8HP PRN 11/12/19 Furosemide [Lasix 40 mg Tablet] 40 mg PO BID 11/12/19 Glimepiride [Amaryl] 2 mg PO DAILY 11/12/19 Hydroxychloroquine Sulfate [Plaquenil 200 mg Tablet] 200 mg PO Q12 11/12/19 Insulin Glargine,Hum.rec.anlog [Lantus Insulin 100 Unit/1 ml 10 ml] 5 units SQ QHS 11/12/19 Insulin Lispro [Humalog Insulin (Lispro) 100 unit/mL] 0 unit SUBCUT .SLD SCALE 11/12/19 Levothyroxine Sodium [Synthroid 0.088 mg Tablet] 0.088 mg PO Q6AM 11/12/19 Menthol/Camphor [Sarna Original 0.5%-0.5% Lotn] 1 applic TOP QIDP PRN 11/12/19 Metoprolol Succinate [Toprol Xl 25 mg Tab.sr] 25 mg PO QHS 11/12/19 Mineral Oil/Hydrophil Petrolat [Aquaphor Healing Ointment] 1 applic TOP BID 11/12/19 Mirabegron [Myrbetriq] 25 mg PO DAILY 11/12/19 Montelukast Sodium [Singulair 10 mg Tablet] 10 mg PO QHS 11/12/19 Naloxegol Oxalate [Movantik 25 mg Tablet] 25 mg PO DAILY 11/12/19 Ondansetron [Zofran Odt 4 mg Tablet] 4 mg PO Q6HP PRN 11/12/19 Oxycodone HCl [Oxy-Ir 5 mg Tablet] 10 mg PO BID 11/12/19 Pantoprazole Sodium [Protonix [address] Tablet] 40 mg PO Q12 11/12/19 Pimecrolimus 1 applic TOP BID 11/12/19 Polyethylene Glycol 3350 [Miralax Powder 17 gm/Packet] 1 packet PO BID 11/12/19 Polyethylene Glycol 3350 [Miralax Powder 17 gm/Packet] 1 packet PO DAILYP PRN 11/12/19 Polyvinyl Alcohol [Liquitears 1.4% Ophth Soln 15 ml] 1 drop OU QIDP PRN 11/12/19 Potassium Chloride [Klor-Con 10 Meq Tablet ER] 10 meq PO Q12 11/12/19 Pregabalin 150 mg PO Q8 11/12/19 Sennosides/Docusate Sodium [Senna Plus 8.6-50 mg Tablet] 1 tab PO BID 11/12/19 Sodium Chloride [[place] Nasal Kinder 44 ml Bottle] 1 spray NASL DAILYP PRN 11/12/19 Fluconazole [Diflucan] 150 mg PO MO@1000 07/06/20 Menthol [Biofreeze] 1 applic TP Q6HP PRN 07/06/20 Oxycodone HCl [Oxycontin] 20 mg PO Q8HP PRN 07/06/20 Allergies/Adverse Reactions: ciprofloxacin [From Cipro] Allergy (Severe, Verified 12/01/19 00:48) Anaphylaxis Penicillins Allergy (Severe, Verified 12/01/19 00:48) Anaphylaxis adhesive tape [Adhesive Tape] Adverse Reaction (Severe, Verified 12/01/19 00:48) BLISTERS, SKIN BECOMES RAW indomethacin [From Indocin] Adverse Reaction (Severe, Verified 12/01/19 00:48) CAUSES SWELLING AND INFLAMMATION meperidine HCl [From Demerol] Adverse Reaction (Severe, Verified 12/01/19 00:48) Hallucinations Physical Exam Vital Signs: Temp Pulse Resp BP Pulse Ox 97.8 F 68 18 126/47 H 99 07/09/20 19:52 07/09/20 19:52 07/09/20 19:52 07/09/20 19:52 07/10/20 06:18 Intake & Output 07/09/20 07/10/20 07/11/20 06:59 06:59 06:59 Intake Total 1330 1527 Output Total 3350 4300 Weight 173.2 kg 173.2 kg General appearance: PRESENT: cooperative, morbidly obese Head exam: PRESENT: normocephalic Eye exam: PRESENT: conjunctiva pink Mouth exam: PRESENT: dry mucosa Respiratory exam: PRESENT: unlabored GI/Abdominal exam: PRESENT: tenderness Extremities exam: PRESENT: +2 edema Neurological exam: PRESENT: alert, altered, awake, oriented to person, oriented to place, oriented to situation Psychiatric exam: PRESENT: appropriate affect Results Laboratory Results: 07/09/20 05:53 07/09/20 20:23 07/09/20 20:23 Sodium 135.1 L Potassium 3.4 L Chloride 95 L Carbon Dioxide 36 H Anion Gap 4 L BUN 17 Creatinine 0.74 Est GFR ( Amer) > 60 Glucose 199 H Calcium 7.8 L Total Bilirubin 0.5 AST 17 Alkaline Phosphatase 71 Total Protein 5.4 L Albumin 2.8 L 07/06/20 07/06/20 07/06/20 09:49 17:38 17:38 Creatine Kinase 90 CK-MB (CK-2) Troponin I 0.063 NT-Pro-B Natriuret Pep 2980 H 3650 H 07/06/20 07/07/20 07/07/20 17:38 02:23 02:23 Creatine Kinase 88 CK-MB (CK-2) 1.44 1.13 Troponin I 0.059 0.064 NT-Pro-B Natriuret Pep 07/07/20 07/07/20 11:24 11:24 Creatine Kinase 70 CK-MB (CK-2) 0.73 Troponin I 0.044 NT-Pro-B Natriuret Pep Impressions: Chest X-Ray 07/06/20 08:13 IMPRESSION: CARDIAC ENLARGEMENT. VASCULAR CONGESTION. Acute Abdomen Series 07/06/20 09:37 IMPRESSION: NO RADIOGRAPHIC EVIDENCE FOR ACUTE ABDOMINAL DISEASE. Assessment & Plan - Diagnosis (1) Chronic pain syndrome Is this a current diagnosis for this admission?: Yes Plan: 1. Treatment plan, risk, and benefits reviewed and agreed upon w/ patient today 2. Discussed plan w/ Dr. Johnson 3. Continue w/ Oxycontin 20 mg TID through the 10 pm dose on 07/09/2020. 4. Starting on 07/10/2020 start Oxycontin 20 mg BID. 6 am and 6 pm 5. Increase Oxycodone 10 mg to TID dosing PRN. (this is a 10 mg decrease in total daily dosing) 6. Will plan to continue w/ slow wean as discussed w/ patient and will re- assess in 3-5 days. 7. If patient is discharged back to [facility] will plan to see patient in office to continue w/ wean. Discussed today that we will be making changes to her regimen to allow for better bowel movement control. 8. Continue w/ the Miralax and Colace. 9. If no bowel movement with current regimen would consider enema. 10. Once patient is eating, passing gas and can have regular daily bowel movements and GI motility has returned could consider start of Relistor 450 mg daily to be taken 30 minutes prior to meal.
[2020-07-10] MEDS: POLYETHYLENE GLYCOL 3350 POWDER 17 GM/1 PACKET PO SCH ×2 (10:55→18:52)
[2020-07-10] MEDS: CHOLECALCIFEROL (D3) 1,000 UNIT (25 MCG) TABLET PO SCH (10:56)
[2020-07-10] MEDS: DOCUSATE SODIUM 100 MG CAPSULE PO SCH ×2 (10:58→18:47)
[2020-07-10] MEDS: CALCIUM CARBONATE 600 MG TABLET PO SCH (11:00)
[2020-07-10] MEDS: AMLODIPINE BESYLATE 5 MG TABLET PO SCH (11:01)
[2020-07-10] MEDS: BACLOFEN 10 MG TABLET PO SCH ×4 (11:02→21:54)
[2020-07-10] MEDS: HYDROXYCHLOROQUINE SULFATE 200 MG TABLET PO SCH ×2 (11:02→21:54)
[2020-07-10] MEDS: POTASSIUM CHLORIDE 10 MEQ TABLET.ER PO SCH ×2 (11:03→21:54)
[2020-07-10] MEDS: CETIRIZINE 10 MG TABLET PO SCH (11:03)
[2020-07-10] MEDS: SENNOSIDES/DOCUSATE 8.6-50 MG 1 EACH TABLET PO SCH ×2 (11:04→18:47)
[2020-07-10] MEDS: FLUTICASONE/VILANTEROL 200-25 MCG/DOSE IH SCH (11:05)
[2020-07-10] MEDS: ALLOPURINOL 300 MG TABLET PO SCH (11:06)
[2020-07-10] MEDS: ENOXAPARIN SODIUM INJ 40 MG/0.4 ML DISP.SYRIN SUBCUT SCH (11:11)
[2020-07-10] MEDS: POLYVINYL ALCOHOL 1.4% OPH SOLN 15 ML OU PRN ×2 (11:12→21:54)
[2020-07-10] MEDS: CYCLOSPORINE 0.05% OPH EMULSIO 0.4 ML DROPERETTE OU SCH ×2 (11:14→21:54)
[2020-07-10] MEDS: OXYCODONE HCL IR 5 MG TABLET PO PRN ×2 (13:13→21:53)
--- NOTE | 2020-07-10 15:08 | RADIOLOGY REPORT (SQ) ---
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 FLUOROSCOPY TIME: 2 minutes of fluoroscopy was used. 3 images saved to PACS. TECHNIQUE: Fluoroscopic and ultrasound guided PICC placement. LIMITATIONS: None. PROCEDURE: After written consent and assessment were obtained, the patient was brought into the fluo roscopy room and placed supine on the table. Ultrasound evaluation of potential access sites were per formed. After successfully identifying a patent left cephalic vein, the left arm was prepped and drap ed in a sterile fashion along with the ultrasound probe. The entry site was anesthetized with 1% lido sha. A 21 gauge 7 cm needle was advanced through the skin and into the cephalic vein under live ult rasound guidance. An ultrasound image was saved to PACS confirming access site. A .018 guide wire w as then inserted through the needle and into the venous system. The needle was then removed and an 11 blade scalpel was used to make a 1cm skin incision. A 5 fr peel-away sheath was advanced over the w ivonne and into the venous system. A measurement was then made using the existing wire and live fluorosc opic guidance. The wire was then removed and trimmed. The PICC was advanced through the peel-away she ath and into the venous system. The peel-away sheath was removed and the catheter was adhered to the patients arm with a stat lock. The catheter was then aspirated and flushed and a sterile bandage was placed over the access site. A fluoroscopic spot image was saved to PACS confirming the catheter tip within the superior vena cava. IMPRESSION: SUCCESSFUL PLACEMENT OF A 5 FR DUAL LUMEN 48 CM PICC IN THE LEFT CEPHALIC VEIN. COMMENT: Patient medication list reviewed: Yes- Quality ID# [id number]:Eligible professional attests to doc umenting in the medical record they obtained, updated, or reviewed the patient's current medications. . Quality ID 145: Final reports for procedures using fluoroscopy that document radiation exposure nehal dhaval, or exposure time and number of fluorographic images (if radiation exposure indices are not avail able) Quality ID #76: The patient was prepped and draped using maximum sterile barrier technique including cap, mask, sterile gown, sterile gloves, a large sterile sheet, hand hygiene, and 2% Chlorhexidine fo r cutaneous antisepsis. When ultrasound is used, sterile ultrasound techniques are followed requiring sterile gel and sterile probes. TECHNICAL DOCUMENTATION: JOB ID: [id number] 2010 [employer]- All Rights Reserved rev Reading location - IP/workstation name: [email or web address]
[2020-07-10] MEDS ORDERED: NORMAL SALINE 10 ML SDV (AFTER EACH USE) IV PRN (16:00)
[2020-07-10] MEDS: NORMAL SALINE 250 ML with FUROSEMIDE 250 MG IV PRN ×2 (16:02)
--- NOTE | 2020-07-10 18:09 | PDOC PROGRESS REPORT ---
Subjective Progress Note for:: 07/10/20 Subjective:: The blood culture grew corynebacterium, most likely a contaminant, urine culture grew Pseudomonas patient on appropriate antibiotic Reason For Visit: INTRACTABLE VOMITING,RECURRENT UTI,MORBID OBESITY Physical Exam Vital Signs: Temp Pulse Resp BP Pulse Ox 97.4 F 62 18 149/51 H 95 07/10/20 16:06 07/10/20 16:06 07/10/20 16:00 07/10/20 16:06 07/10/20 16:06 Intake & Output 07/09/20 07/10/20 07/11/20 06:59 06:59 06:59 Intake Total 1330 1527 1255 Output Total 3350 4300 700 Balance -2019 Weight 173.2 kg 173.2 kg General appearance: PRESENT: no acute distress Eye exam: PRESENT: PERRLA Respiratory exam: PRESENT: clear to auscultation pennie Cardiovascular exam: PRESENT: +S1, +S2 GI/Abdominal exam: PRESENT: soft Neurological exam: PRESENT: alert Results Laboratory Results: 07/09/20 05:53 07/09/20 20:23 07/09/20 20:23 Sodium 135.1 L Potassium 3.4 L Chloride 95 L Carbon Dioxide 36 H Anion Gap 4 L BUN 17 Creatinine 0.74 Est GFR ( Amer) > 60 Glucose 199 H Calcium 7.8 L Total Bilirubin 0.5 AST 17 Alkaline Phosphatase 71 Total Protein 5.4 L Albumin 2.8 L 07/06/20 09:49 Blood Blood Culture - Final Corynebacterium Species 07/06/20 07/06/20 07/06/20 09:49 17:38 17:38 Creatine Kinase 90 CK-MB (CK-2) Troponin I 0.063 NT-Pro-B Natriuret Pep 2980 H 3650 H 07/06/20 07/07/20 07/07/20 17:38 02:23 02:23 Creatine Kinase 88 CK-MB (CK-2) 1.44 1.13 Troponin I 0.059 0.064 NT-Pro-B Natriuret Pep 07/07/20 07/07/20 11:24 11:24 Creatine Kinase 70 CK-MB (CK-2) 0.73 Troponin I 0.044 NT-Pro-B Natriuret Pep Impressions: Chest X-Ray 07/06/20 08:13 IMPRESSION: CARDIAC ENLARGEMENT. VASCULAR CONGESTION. Acute Abdomen Series 07/06/20 09:37 IMPRESSION: NO RADIOGRAPHIC EVIDENCE FOR ACUTE ABDOMINAL DISEASE. PICC Line Insertion 07/10/20 09:00 IMPRESSION: SUCCESSFUL PLACEMENT OF A 5 FR DUAL LUMEN 48 CM PICC IN THE LEFT CEPHALIC VEIN. Assessment & Plan - Diagnosis (1) Persistent vomiting Is this a current diagnosis for this admission?: Yes Plan: The vomiting has stopped, this is probably from UTI (2) Metabolic alkalosis with respiratory acidosis Is this a current diagnosis for this admission?: Yes (3) Urinary tract infection Qualifiers: Urinary tract infection type: catheter-associated UTI Indwelling urinary catheter type: indwelling urethral catheter Encounter type: initial encounter Qualified Code(s): T83.511A - Infection and inflammatory reaction due to indwelling urethral catheter, initial encounter; N39.0 - Urinary tract infection, site not specified Is this a current diagnosis for this admission?: Yes Plan: Continue antibiotic (4) Anasarca Is this a current diagnosis for this admission?: Yes (5) Nephrotic syndrome Is this a current diagnosis for this admission?: Yes (6) Pseudomonas urinary tract infection Is this a current diagnosis for this admission?: Yes - Time Time Spent with patient: 25-34 minutes Level of Care: IMCU Medications reviewed and adjusted accordingly: Yes Anticipated discharge: Home Anticipated DC Timeframe: within 48 hours - Inpatient Certification Based on my medical assessment, after consideration of the patient's comorbidities, presenting symptoms, or acuity I expect that the services needed warrant INPATIENT care.: Yes I certify that my determination is in accordance with my understanding of Medicare's requirements for reasonable and necessary INPATIENT services [42 CFR 412.3e].: Yes
[2020-07-10 18:45] LABS: ABSOLUTE BASOPHILS # (AUTO) 0.1 10^3/uL (0.0-0.2); ABSOLUTE EOSINOPHILS # (AUTO) 0.2 10^3/uL (0.0-0.6); ABSOLUTE LYMPHOCYTES (AUTO) 2.4 10^3/uL (0.5-4.7); ABSOLUTE MONOCYTES (AUTO) 0.7 10^3/uL (0.1-1.4); ABSOLUTE NEUT (AUTO) 3.7 10^3/uL (1.7-8.2); EOSINOPHILS % (AUTO) 3.6 % (0-6); HEMOGLOBIN 12.4 g/dL (12.0-15.5); LYMPHOCYTES % (AUTO) 33.7 % (13-45); MEAN CORPUSCULAR HEMOGLOBIN 30.8 pg (27.0-33.4); MEAN CORPUSCULAR HGB CONC 34.4 g/dL (32.0-36.0); MEAN CORPUSCULAR VOLUME 89 fl (80-97); MONOCYTES % (AUTO) 9.6 % (3-13); PLATELET COUNT 169 10^3/uL (150-450); RED BLOOD COUNT 4.03 10^6/uL (3.72-5.28); RED CELL DISTRIBUTION WIDTH 15.3 % (11.5-14.0); SEGMENTED NEUTROPHILS % (AUTO) 52.1 % (42-78); TOTAL CELLS COUNTED % (AUTO) 100 %
[2020-07-10] MEDS: LUBIPROSTONE 24 MCG CAPSULE PO SCH (18:47)
[2020-07-10 19:09] LABS: ALBUMIN 3.1 g/dL (3.5-5.0); ALKALINE PHOSPHATASE 74 U/L (38-126); ANION GAP 8 (5-19); ASPARTATE AMINO TRANSFERASE 21 U/L (14-36); BILIRUBIN,DIRECT 0.3 mg/dL (0.0-0.4); BILIRUBIN,TOTAL 0.4 mg/dL (0.2-1.3); BLOOD UREA NITROGEN 17 mg/dL (7-20); CALCIUM 7.9 mg/dL (8.4-10.2); CARBON DIOXIDE 36 mmol/L (22-30); CHLORIDE 92 mmol/L (98-107); GLUCOSE 161 mg/dL (75-110); POTASSIUM 3.4 mmol/L (3.6-5.0); TOTAL PROTEIN 5.6 g/dL (6.3-8.2)
[2020-07-10] MEDS: METOPROLOL SUCCINATE 25 MG TAB.SR.24H PO SCH (21:53)
[2020-07-10] MEDS: NORMAL SALINE 10 ML SDV (SCHEDULED) IV SCH (21:55)
[2020-07-10] MEDS: INSULIN GLARGINE,HUM.REC.ANLOG 1,000 UNIT/10 ML VIAL SUBCUT SCH (22:00)
[2020-07-10] MEDS: CARBOXYMETHYLCELLULOSE SOD 0.5% 0.4 ML DROPERETTE OU SCH (22:01)
[2020-07-11] MEDS: AZTREONAM 1 GM in DEXTROSE 5%-WATER 50 ML IV SCH ×3 (01:28→18:32)
[2020-07-11] MEDS: PREGABALIN 75 MG CAPSULE PO SCH ×3 (05:37→21:31)
[2020-07-11] MEDS: LEVOTHYROXINE SODIUM 0.088 MG TABLET PO SCH (05:37)
[2020-07-11] MEDS: OXYCODONE HCL SR 10 MG TABLET PO SCH ×2 (05:37→17:08)
[2020-07-11] MEDS: PANTOPRAZOLE SODIUM 40 MG TABLET.DR PO SCH ×2 (05:38→17:12)
[2020-07-11] MEDS: INSULIN LISPRO 100 UNIT/ML 3 ML VIAL SUBCUT SCH ×4 (07:41→21:32)
[2020-07-11] MEDS: OXYCODONE HCL IR 5 MG TABLET PO PRN (10:17)
[2020-07-11] MEDS: CHOLECALCIFEROL (D3) 1,000 UNIT (25 MCG) TABLET PO SCH (10:18)
[2020-07-11] MEDS: LUBIPROSTONE 24 MCG CAPSULE PO SCH ×2 (10:18→17:12)
[2020-07-11] MEDS: POTASSIUM CHLORIDE 10 MEQ TABLET.ER PO SCH ×2 (10:18→21:31)
[2020-07-11] MEDS: AMLODIPINE BESYLATE 5 MG TABLET PO SCH (10:18)
[2020-07-11] MEDS: SENNOSIDES/DOCUSATE 8.6-50 MG 1 EACH TABLET PO SCH ×2 (10:18→17:12)
[2020-07-11] MEDS: POLYETHYLENE GLYCOL 3350 POWDER 17 GM/1 PACKET PO SCH ×2 (10:19→17:12)
[2020-07-11] MEDS: CETIRIZINE 10 MG TABLET PO SCH (10:19)
[2020-07-11] MEDS: CALCIUM CARBONATE 600 MG TABLET PO SCH (10:19)
[2020-07-11] MEDS: DOCUSATE SODIUM 100 MG CAPSULE PO SCH ×2 (10:19→17:11)
[2020-07-11] MEDS: FLUTICASONE/VILANTEROL 200-25 MCG/DOSE IH SCH (10:20)
[2020-07-11] MEDS: NORMAL SALINE 10 ML SDV (SCHEDULED) IV SCH ×2 (10:20→21:33)
[2020-07-11] MEDS: BACLOFEN 10 MG TABLET PO SCH ×4 (10:20→21:31)
[2020-07-11] MEDS: CYCLOSPORINE 0.05% OPH EMULSIO 0.4 ML DROPERETTE OU SCH ×2 (10:21→21:31)
[2020-07-11] MEDS: HYDROXYCHLOROQUINE SULFATE 200 MG TABLET PO SCH (10:21)
[2020-07-11] MEDS: ALLOPURINOL 300 MG TABLET PO SCH (10:21)
[2020-07-11] MEDS: ENOXAPARIN SODIUM INJ 40 MG/0.4 ML DISP.SYRIN SUBCUT SCH (10:34)
[2020-07-11] MEDS: POLYVINYL ALCOHOL 1.4% OPH SOLN 15 ML OU PRN (10:36)
[2020-07-11] MEDS: OXYCODONE HCL IR 5 MG TABLET PO SCH (17:08)
[2020-07-11] MEDS: NORMAL SALINE 250 ML with FUROSEMIDE 250 MG IV PRN ×2 (18:32)
[2020-07-11] MEDS: INSULIN GLARGINE,HUM.REC.ANLOG 1,000 UNIT/10 ML VIAL SUBCUT SCH (21:32)
[2020-07-11] MEDS: CARBOXYMETHYLCELLULOSE SOD 0.5% 0.4 ML DROPERETTE OU SCH (21:33)
[2020-07-11] MEDS: METOPROLOL SUCCINATE 25 MG TAB.SR.24H PO SCH (21:33)
--- NOTE | 2020-07-11 22:09 | PDOC PROGRESS REPORT ---
Subjective Progress Note for:: 07/11/20 Subjective:: The blood culture grew corynebacterium, most likely a contaminant, urine culture grew Pseudomonas patient on appropriate antibiotic,she continues to require IV lasix infusion Reason For Visit: INTRACTABLE VOMITING,RECURRENT UTI,MORBID OBESITY Physical Exam Vital Signs: Temp Pulse Resp BP Pulse Ox 98.5 F 77 18 145/65 H 97 07/11/20 20:24 07/11/20 20:24 07/11/20 20:24 07/11/20 20:24 07/11/20 20:24 Intake & Output 07/10/20 07/11/20 07/12/20 06:59 06:59 06:59 Intake Total 1527 1855 375 Output Total 4301 7530 Balance -4972 -4033 375 Weight 173.2 kg 171.6 kg General appearance: PRESENT: morbidly obese Eye exam: PRESENT: PERRLA Respiratory exam: PRESENT: clear to auscultation pennie Cardiovascular exam: PRESENT: +S1, +S2 GI/Abdominal exam: PRESENT: soft Neurological exam: PRESENT: alert Results Laboratory Results: 07/10/20 18:39 07/10/20 18:39 07/06/20 11:53 Blood Blood Culture - Final NO GROWTH IN 5 DAYS 07/06/20 07/06/20 07/06/20 09:49 17:38 17:38 Creatine Kinase 90 CK-MB (CK-2) Troponin I 0.063 NT-Pro-B Natriuret Pep 2980 H 3650 H 07/06/20 07/07/20 07/07/20 17:38 02:23 02:23 Creatine Kinase 88 CK-MB (CK-2) 1.44 1.13 Troponin I 0.059 0.064 NT-Pro-B Natriuret Pep 07/07/20 07/07/20 11:24 11:24 Creatine Kinase 70 CK-MB (CK-2) 0.73 Troponin I 0.044 NT-Pro-B Natriuret Pep Impressions: Chest X-Ray 07/06/20 08:13 IMPRESSION: CARDIAC ENLARGEMENT. VASCULAR CONGESTION. Acute Abdomen Series 07/06/20 09:37 IMPRESSION: NO RADIOGRAPHIC EVIDENCE FOR ACUTE ABDOMINAL DISEASE. PICC Line Insertion 07/10/20 09:00 IMPRESSION: SUCCESSFUL PLACEMENT OF A 5 FR DUAL LUMEN 48 CM PICC IN THE LEFT CEPHALIC VEIN. Assessment & Plan - Diagnosis (1) Persistent vomiting Is this a current diagnosis for this admission?: Yes Plan: The vomiting has stopped, this is probably from UTI (2) Metabolic alkalosis with respiratory acidosis Is this a current diagnosis for this admission?: Yes (3) Urinary tract infection Qualifiers: Urinary tract infection type: catheter-associated UTI Indwelling urinary catheter type: indwelling urethral catheter Encounter type: initial encounter Qualified Code(s): T83.511A - Infection and inflammatory reaction due to indwelling urethral catheter, initial encounter; N39.0 - Urinary tract infection, site not specified Is this a current diagnosis for this admission?: Yes Plan: Continue antibiotic (4) Anasarca Is this a current diagnosis for this admission?: Yes (5) Nephrotic syndrome Is this a current diagnosis for this admission?: Yes (6) Pseudomonas urinary tract infection Is this a current diagnosis for this admission?: Yes - Time Time Spent with patient: 25-34 minutes Level of Care: MEDICAL Medications reviewed and adjusted accordingly: Yes Anticipated discharge: SNF Anticipated DC Timeframe: within 72 hours
[2020-07-11 23:47] LABS: ALBUMIN 2.9 g/dL (3.5-5.0); ALKALINE PHOSPHATASE 64 U/L (38-126); ASPARTATE AMINO TRANSFERASE 18 U/L (14-36); BILIRUBIN,DIRECT 0.4 mg/dL (0.0-0.4); BILIRUBIN,TOTAL 0.5 mg/dL (0.2-1.3); BLOOD UREA NITROGEN 19 mg/dL (7-20); CALCIUM 7.9 mg/dL (8.4-10.2); CHLORIDE 91 mmol/L (98-107); GLUCOSE 216 mg/dL (75-110); POTASSIUM 3.6 mmol/L (3.6-5.0); TOTAL PROTEIN 5.4 g/dL (6.3-8.2)
[2020-07-11 23:54] LABS: ANION GAP 5 (5-19); CARBON DIOXIDE 39 mmol/L (22-30)
[2020-07-12] MEDS: AZTREONAM 1 GM in DEXTROSE 5%-WATER 50 ML IV SCH ×3 (01:05→17:48)
[2020-07-12] MEDS: OXYCODONE HCL IR 5 MG TABLET PO SCH ×4 (01:05→23:18)
[2020-07-12] MEDS: PREGABALIN 75 MG CAPSULE PO SCH ×3 (05:21→21:26)
[2020-07-12] MEDS: OXYCODONE HCL SR 10 MG TABLET PO SCH ×2 (05:21→17:41)
[2020-07-12] MEDS: PANTOPRAZOLE SODIUM 40 MG TABLET.DR PO SCH ×2 (05:21→17:41)
[2020-07-12] MEDS: LEVOTHYROXINE SODIUM 0.088 MG TABLET PO SCH (05:21)
[2020-07-12] MEDS: INSULIN LISPRO 100 UNIT/ML 3 ML VIAL SUBCUT SCH ×4 (08:26→21:31)
[2020-07-12] MEDS: ENOXAPARIN SODIUM INJ 40 MG/0.4 ML DISP.SYRIN SUBCUT SCH ×2 (11:57→12:09)
[2020-07-12] MEDS: POLYETHYLENE GLYCOL 3350 POWDER 17 GM/1 PACKET PO SCH ×2 (11:58→17:38)
[2020-07-12] MEDS: CHOLECALCIFEROL (D3) 1,000 UNIT (25 MCG) TABLET PO SCH (11:58)
[2020-07-12] MEDS: LUBIPROSTONE 24 MCG CAPSULE PO SCH ×2 (11:59→17:41)
[2020-07-12] MEDS: AMLODIPINE BESYLATE 5 MG TABLET PO SCH (11:59)
[2020-07-12] MEDS: CALCIUM CARBONATE 600 MG TABLET PO SCH (11:59)
[2020-07-12] MEDS: FLUTICASONE/VILANTEROL 200-25 MCG/DOSE IH SCH (12:00)
[2020-07-12] MEDS: POTASSIUM CHLORIDE 10 MEQ TABLET.ER PO SCH ×2 (12:01→21:26)
[2020-07-12] MEDS: SENNOSIDES/DOCUSATE 8.6-50 MG 1 EACH TABLET PO SCH ×2 (12:01→17:41)
[2020-07-12] MEDS: CETIRIZINE 10 MG TABLET PO SCH (12:01)
[2020-07-12] MEDS: DOCUSATE SODIUM 100 MG CAPSULE PO SCH ×2 (12:01→17:41)
[2020-07-12] MEDS: CYCLOSPORINE 0.05% OPH EMULSIO 0.4 ML DROPERETTE OU SCH ×2 (12:02→21:31)
[2020-07-12] MEDS: ALLOPURINOL 300 MG TABLET PO SCH (12:03)
[2020-07-12] MEDS: BACLOFEN 10 MG TABLET PO SCH ×4 (12:04→21:26)
[2020-07-12] MEDS: NORMAL SALINE 10 ML SDV (SCHEDULED) IV SCH ×2 (12:06→21:31)
[2020-07-12] MEDS: OXYCODONE HCL IR 5 MG TABLET PO PRN (13:59)
[2020-07-12] MEDS: ONDANSETRON 4 MG TAB.RAPDIS PO PRN (17:38)
[2020-07-12] MEDS: NORMAL SALINE 250 ML with FUROSEMIDE 250 MG IV PRN ×4 (17:38→23:27)
[2020-07-12] MEDS: METOPROLOL SUCCINATE 25 MG TAB.SR.24H PO SCH (21:27)
[2020-07-12] MEDS: INSULIN GLARGINE,HUM.REC.ANLOG 1,000 UNIT/10 ML VIAL SUBCUT SCH (21:32)
[2020-07-12] MEDS: POLYVINYL ALCOHOL 1.4% OPH SOLN 15 ML OU PRN (21:32)
--- NOTE | 2020-07-12 22:06 | PDOC PROGRESS REPORT ---
Subjective Progress Note for:: 07/12/20 Subjective:: Patient seen by the bedside, she complained of constipation Reason For Visit: INTRACTABLE VOMITING,RECURRENT UTI,MORBID OBESITY Physical Exam Vital Signs: Temp Pulse Resp BP Pulse Ox 98.3 F 87 18 118/40 L 94 07/12/20 20:09 07/12/20 20:09 07/12/20 20:09 07/12/20 20:09 07/12/20 20:09 Intake & Output 07/11/20 07/12/20 07/13/20 06:59 06:59 06:59 Intake Total 5532 586 2323 Output Total 5400 2100 2550 Balance -4117 -1125 -796 Weight 171.6 kg 170 kg General appearance: PRESENT: morbidly obese Eye exam: PRESENT: PERRLA Respiratory exam: PRESENT: clear to auscultation pennie Cardiovascular exam: PRESENT: +S1, +S2 GI/Abdominal exam: PRESENT: soft Results Laboratory Results: 07/10/20 18:39 07/11/20 23:11 07/11/20 23:11 Sodium 134.6 L Potassium 3.6 Chloride 91 L Carbon Dioxide 39 H Anion Gap 5 BUN 19 Creatinine 0.67 Est GFR ( Amer) > 60 Glucose 216 H Calcium 7.9 L Total Bilirubin 0.5 AST 18 Alkaline Phosphatase 64 Total Protein 5.4 L Albumin 2.9 L 07/06/20 07/06/20 07/06/20 09:49 17:38 17:38 Creatine Kinase 90 CK-MB (CK-2) Troponin I 0.063 NT-Pro-B Natriuret Pep 2980 H 3650 H 07/06/20 07/07/20 07/07/20 17:38 02:23 02:23 Creatine Kinase 88 CK-MB (CK-2) 1.44 1.13 Troponin I 0.059 0.064 NT-Pro-B Natriuret Pep 07/07/20 07/07/20 11:24 11:24 Creatine Kinase 70 CK-MB (CK-2) 0.73 Troponin I 0.044 NT-Pro-B Natriuret Pep Impressions: Chest X-Ray 07/06/20 08:13 IMPRESSION: CARDIAC ENLARGEMENT. VASCULAR CONGESTION. Acute Abdomen Series 07/06/20 09:37 IMPRESSION: NO RADIOGRAPHIC EVIDENCE FOR ACUTE ABDOMINAL DISEASE. PICC Line Insertion 07/10/20 09:00 IMPRESSION: SUCCESSFUL PLACEMENT OF A 5 FR DUAL LUMEN 48 CM PICC IN THE LEFT CEPHALIC VEIN. Assessment & Plan - Diagnosis (1) Persistent vomiting Is this a current diagnosis for this admission?: Yes Plan: The vomiting has stopped, this is probably from UTI (2) Metabolic alkalosis with respiratory acidosis Is this a current diagnosis for this admission?: Yes (3) Urinary tract infection Qualifiers: Urinary tract infection type: catheter-associated UTI Indwelling urinary catheter type: indwelling urethral catheter Encounter type: initial encounter Qualified Code(s): T83.511A - Infection and inflammatory reaction due to indwelling urethral catheter, initial encounter; N39.0 - Urinary tract infection, site not specified Is this a current diagnosis for this admission?: Yes Plan: Continue antibiotic (4) Anasarca Is this a current diagnosis for this admission?: Yes Plan: Reduce Lasix dose to 5 mg/h (5) Nephrotic syndrome Is this a current diagnosis for this admission?: Yes (6) Pseudomonas urinary tract infection Is this a current diagnosis for this admission?: Yes - Time Time Spent with patient: 25-34 minutes Level of Care: MEDICAL Medications reviewed and adjusted accordingly: Yes Anticipated discharge: SNF Anticipated DC Timeframe: when bed available
[2020-07-12] MEDS: CARBOXYMETHYLCELLULOSE SOD 0.5% 0.4 ML DROPERETTE OU SCH (23:17)
[2020-07-13] MEDS: AZTREONAM 1 GM in DEXTROSE 5%-WATER 50 ML IV SCH ×2 (03:07→09:13)
[2020-07-13] MEDS: PANTOPRAZOLE SODIUM 40 MG TABLET.DR PO SCH ×2 (05:26→17:47)
[2020-07-13] MEDS: PREGABALIN 75 MG CAPSULE PO SCH ×3 (05:26→22:04)
[2020-07-13] MEDS: LEVOTHYROXINE SODIUM 0.088 MG TABLET PO SCH (05:26)
[2020-07-13] MEDS: OXYCODONE HCL SR 10 MG TABLET PO SCH ×2 (05:27→17:48)
[2020-07-13] MEDS ORDERED: INFLUENZA QUAD (6MOS+) 2020-21 VAC 0.5 ML SYR IM ONE (08:00)
[2020-07-13] MEDS: OXYCODONE HCL IR 5 MG TABLET PO SCH ×2 (09:00→15:15)
[2020-07-13] MEDS: INSULIN LISPRO 100 UNIT/ML 3 ML VIAL SUBCUT SCH ×4 (09:00→22:03)
[2020-07-13] MEDS: BACLOFEN 10 MG TABLET PO SCH ×4 (09:01→22:04)
[2020-07-13] MEDS: CALCIUM CARBONATE 600 MG TABLET PO SCH (09:01)
[2020-07-13] MEDS: LUBIPROSTONE 24 MCG CAPSULE PO SCH ×2 (09:01→17:47)
[2020-07-13] MEDS: FLUTICASONE/VILANTEROL 200-25 MCG/DOSE IH SCH (09:01)
[2020-07-13] MEDS: POTASSIUM CHLORIDE 10 MEQ TABLET.ER PO SCH ×2 (09:02→22:04)
[2020-07-13] MEDS: POLYETHYLENE GLYCOL 3350 POWDER 17 GM/1 PACKET PO SCH ×2 (09:02→17:48)
[2020-07-13] MEDS: DOCUSATE SODIUM 100 MG CAPSULE PO SCH ×2 (09:02→17:48)
[2020-07-13] MEDS: AMLODIPINE BESYLATE 5 MG TABLET PO SCH (09:02)
[2020-07-13] MEDS: CHOLECALCIFEROL (D3) 1,000 UNIT (25 MCG) TABLET PO SCH (09:03)
[2020-07-13] MEDS: CYCLOSPORINE 0.05% OPH EMULSIO 0.4 ML DROPERETTE OU SCH ×2 (09:03→22:06)
[2020-07-13] MEDS: SENNOSIDES/DOCUSATE 8.6-50 MG 1 EACH TABLET PO SCH ×2 (09:03→17:48)
[2020-07-13] MEDS: ALLOPURINOL 300 MG TABLET PO SCH (09:03)
[2020-07-13] MEDS: CETIRIZINE 10 MG TABLET PO SCH (09:03)
[2020-07-13] MEDS: NORMAL SALINE 10 ML SDV (SCHEDULED) IV SCH ×2 (09:34→22:19)
[2020-07-13] MEDS: ENOXAPARIN SODIUM INJ 40 MG/0.4 ML DISP.SYRIN SUBCUT SCH (09:34)
--- NOTE | 2020-07-13 13:44 | PDOC PROGRESS REPORT ---
Subjective Progress Note for:: 07/13/20 Subjective:: No new issues. No fever or chills. No chest pain or reported shortness of breath. No nausea, vomiting, or abdominal pain. Reason For Visit: INTRACTABLE VOMITING,RECURRENT UTI,MORBID OBESITY Physical Exam Vital Signs: Temp Pulse Resp BP Pulse Ox 98.1 F 78 20 118/46 L 92 07/13/20 10:57 07/13/20 10:57 07/13/20 10:57 07/13/20 10:57 07/13/20 10:57 Intake & Output 07/12/20 07/13/20 07/14/20 06:59 06:59 06:59 Intake Total 975 2554 775 Output Total 2100 4150 1200 Balance -5483 -4131 -801 Weight 170 kg 171.4 kg General appearance: PRESENT: morbidly obese Head exam: PRESENT: atraumatic, normocephalic Eye exam: PRESENT: conjunctiva pink Mouth exam: PRESENT: moist Respiratory exam: PRESENT: clear to auscultation pennie, decreased breath sounds Cardiovascular exam: PRESENT: RRR, +S1, +S2 Vascular exam: ABSENT: pallor GI/Abdominal exam: PRESENT: normal bowel sounds, soft. ABSENT: tenderness Extremities exam: PRESENT: pedal edema Neurological exam: PRESENT: alert, awake Skin exam: PRESENT: dry, warm Results Laboratory Results: 07/10/20 18:39 07/11/20 23:11 07/06/20 07/06/20 07/06/20 09:49 17:38 17:38 Creatine Kinase 90 CK-MB (CK-2) Troponin I 0.063 NT-Pro-B Natriuret Pep 2980 H 3650 H 07/06/20 07/07/20 07/07/20 17:38 02:23 02:23 Creatine Kinase 88 CK-MB (CK-2) 1.44 1.13 Troponin I 0.059 0.064 NT-Pro-B Natriuret Pep 07/07/20 07/07/20 11:24 11:24 Creatine Kinase 70 CK-MB (CK-2) 0.73 Troponin I 0.044 NT-Pro-B Natriuret Pep Impressions: Chest X-Ray 07/06/20 08:13 IMPRESSION: CARDIAC ENLARGEMENT. VASCULAR CONGESTION. Acute Abdomen Series 07/06/20 09:37 IMPRESSION: NO RADIOGRAPHIC EVIDENCE FOR ACUTE ABDOMINAL DISEASE. PICC Line Insertion 07/10/20 09:00 IMPRESSION: SUCCESSFUL PLACEMENT OF A 5 FR DUAL LUMEN 48 CM PICC IN THE LEFT CEPHALIC VEIN. Assessment & Plan - Diagnosis (1) Nephrotic syndrome Is this a current diagnosis for this admission?: Yes Plan: Continue current medication management. (2) Anasarca Is this a current diagnosis for this admission?: Yes Plan: Continue current medication management. (3) Pseudomonas urinary tract infection Is this a current diagnosis for this admission?: Yes Plan: Continue current medication management. 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 - Time Time Spent with patient: 25-34 minutes Level of Care: MEDICAL Medications reviewed and adjusted accordingly: Yes Anticipated discharge: Home with Homehealth, SNF Anticipated DC Timeframe: within 72 hours - Inpatient Certification Based on my medical assessment, after consideration of the patient's comorbidities, presenting symptoms, or acuity I expect that the services needed warrant INPATIENT care.: Yes I certify that my determination is in accordance with my understanding of Medicare's requirements for reasonable and necessary INPATIENT services [42 CFR 412.3e].: Yes Medical Necessity: Significant Comorbidiites Make Outpatient Treatment Too Risky, Need Close Monitoring Due to Risk of Patient Decompensation, Need For IV Fluids, Need For Continuous Telemetry Monitoring, Need for Nebulizer Therapy and Monitoring of Response, Risk of Complication if Not Cared For in Hospital, Risk of Diagnosis Which Will Require Inpatient Eval/Care/Monitoring Post Hospital Care: 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
[2020-07-13] MEDS ORDERED: INSULIN GLARGINE,HUM.REC.ANLOG 1,000 UNIT/10 ML VIAL (PYX) SUBCUT ONE (21:57)
[2020-07-13] MEDS: INSULIN GLARGINE,HUM.REC.ANLOG 1,000 UNIT/10 ML VIAL SUBCUT SCH (22:01)
[2020-07-13] MEDS: METOPROLOL SUCCINATE 25 MG TAB.SR.24H PO SCH (22:04)
[2020-07-13] MEDS: POLYVINYL ALCOHOL 1.4% OPH SOLN 15 ML OU PRN (22:06)
[2020-07-13] MEDS: CARBOXYMETHYLCELLULOSE SOD 0.5% 0.4 ML DROPERETTE OU SCH (23:53)
[2020-07-14] MEDS: OXYCODONE HCL IR 5 MG TABLET PO SCH ×4 (05:13→23:02)
[2020-07-14] MEDS: PREGABALIN 75 MG CAPSULE PO SCH ×3 (05:21→22:40)
[2020-07-14] MEDS: PANTOPRAZOLE SODIUM 40 MG TABLET.DR PO SCH ×2 (05:22→16:45)
[2020-07-14] MEDS: OXYCODONE HCL SR 10 MG TABLET PO SCH ×2 (05:22→17:57)
[2020-07-14] MEDS: LEVOTHYROXINE SODIUM 0.088 MG TABLET PO SCH (05:23)
[2020-07-14] MEDS: ONDANSETRON 4 MG TAB.RAPDIS PO PRN (05:26)
[2020-07-14 06:32] LABS: ABSOLUTE EOSINOPHILS # (AUTO) 0.2 10^3/uL (0.0-0.6); ABSOLUTE LYMPHOCYTES (AUTO) 1.9 10^3/uL (0.5-4.7); ABSOLUTE MONOCYTES (AUTO) 0.8 10^3/uL (0.1-1.4); ABSOLUTE NEUT (AUTO) 3.2 10^3/uL (1.7-8.2); BASOPHILS % (AUTO) 0.7 % (0-2); EOSINOPHILS % (AUTO) 3.1 % (0-6); HEMOGLOBIN 11.4 g/dL (12.0-15.5); LYMPHOCYTES % (AUTO) 30.6 % (13-45); MEAN CORPUSCULAR HEMOGLOBIN 31.1 pg (27.0-33.4); MEAN CORPUSCULAR HGB CONC 34.4 g/dL (32.0-36.0); MEAN CORPUSCULAR VOLUME 90 fl (80-97); MONOCYTES % (AUTO) 13.6 % (3-13); PLATELET COUNT 186 10^3/uL (150-450); RED BLOOD COUNT 3.65 10^6/uL (3.72-5.28); RED CELL DISTRIBUTION WIDTH 15.6 % (11.5-14.0); TOTAL CELLS COUNTED % (AUTO) 100 %; WHITE BLOOD COUNT 6.2 10^3/uL (4.0-10.5)
[2020-07-14 06:49] LABS: BLOOD UREA NITROGEN 19 mg/dL (7-20); GLUCOSE 213 mg/dL (75-110); POTASSIUM 3.2 mmol/L (3.6-5.0)
[2020-07-14 06:54] LABS: CARBON DIOXIDE 32 mmol/L (22-30); CHLORIDE 99 mmol/L (98-107)
[2020-07-14 07:05] LABS: ANION GAP 4 (5-19); CALCIUM 6.8 mg/dL (8.4-10.2)
[2020-07-14] MEDS: POLYETHYLENE GLYCOL 3350 POWDER 17 GM/1 PACKET PO SCH ×2 (09:40→17:58)
[2020-07-14] MEDS: CHOLECALCIFEROL (D3) 1,000 UNIT (25 MCG) TABLET PO SCH (09:41)
[2020-07-14] MEDS: CALCIUM CARBONATE 600 MG TABLET PO SCH (09:41)
[2020-07-14] MEDS: LUBIPROSTONE 24 MCG CAPSULE PO SCH ×2 (09:41→17:57)
[2020-07-14] MEDS: SENNOSIDES/DOCUSATE 8.6-50 MG 1 EACH TABLET PO SCH ×2 (09:41→17:57)
[2020-07-14] MEDS: POTASSIUM CHLORIDE 10 MEQ TABLET.ER PO SCH ×4 (09:42→22:40)
[2020-07-14] MEDS: AMLODIPINE BESYLATE 5 MG TABLET PO SCH (09:42)
[2020-07-14] MEDS: ENOXAPARIN SODIUM INJ 40 MG/0.4 ML DISP.SYRIN SUBCUT SCH ×2 (09:42→09:50)
[2020-07-14] MEDS: CETIRIZINE 10 MG TABLET PO SCH (09:42)
[2020-07-14] MEDS: DOCUSATE SODIUM 100 MG CAPSULE PO SCH ×2 (09:42→17:57)
[2020-07-14] MEDS: ALLOPURINOL 300 MG TABLET PO SCH (09:43)
[2020-07-14] MEDS: POLYVINYL ALCOHOL 1.4% OPH SOLN 15 ML OU PRN ×2 (09:43→22:42)
[2020-07-14] MEDS: BACLOFEN 10 MG TABLET PO SCH ×4 (09:43→22:41)
[2020-07-14] MEDS: FLUTICASONE/VILANTEROL 200-25 MCG/DOSE IH SCH (09:44)
[2020-07-14] MEDS: CYCLOSPORINE 0.05% OPH EMULSIO 0.4 ML DROPERETTE OU SCH ×2 (09:45→22:45)
[2020-07-14] MEDS: NORMAL SALINE 10 ML SDV (SCHEDULED) IV SCH ×2 (09:45→22:45)
[2020-07-14] MEDS: INSULIN LISPRO 100 UNIT/ML 3 ML VIAL SUBCUT SCH ×4 (09:52→22:44)
[2020-07-14] MEDS: NORMAL SALINE 250 ML with FUROSEMIDE 250 MG IV PRN ×2 (10:43)
[2020-07-14] MEDS: OXYCODONE HCL IR 5 MG TABLET PO PRN (13:30)
--- NOTE | 2020-07-14 13:44 | PDOC PROGRESS REPORT ---
Subjective Progress Note for:: 07/14/20 Subjective:: No chest pain or shortness of breath. No nausea, vomiting, or abdominal pain. No fever or chills. Reason For Visit: INTRACTABLE VOMITING,RECURRENT UTI,MORBID OBESITY Physical Exam Vital Signs: Temp Pulse Resp BP Pulse Ox 98.0 F 75 20 129/43 H 97 07/14/20 10:54 07/14/20 10:54 07/14/20 10:54 07/14/20 10:54 07/14/20 10:54 Intake & Output 07/13/20 07/14/20 07/15/20 06:59 06:59 06:59 Intake Total 2554 1495 1194 Output Total 4150 3825 1800 Balance -6865 -224 -606 Weight 171.4 kg 171.2 kg Physical Exam: General appearance: PRESENT: morbidly obese Head exam: PRESENT: atraumatic, normocephalic Eye exam: PRESENT: conjunctiva pink. ABSENT: pallor, sclera icterus Mouth exam: PRESENT: moist Respiratory exam: PRESENT: clear to auscultation pennie, decreased breath sounds Cardiovascular exam: PRESENT: RRR, +S1, +S2 Vascular exam: ABSENT: pallor GI/Abdominal exam: PRESENT: normal bowel sounds, soft. ABSENT: tenderness Extremities exam: PRESENT: pedal edema Neurological exam: PRESENT: alert, awake Skin exam: PRESENT: dry, warm Results Laboratory Results: 07/14/20 06:11 07/14/20 06:11 07/14/20 07/14/20 07/14/20 06:11 06:11 09:15 WBC 6.2 RBC 3.65 L Hgb 11.4 L Hct 33.0 L MCV 90 MCH 31.1 MCHC 34.4 RDW 15.6 H Plt Count 186 Seg Neutrophils % 52.0 Sodium 135.4 L Potassium 3.2 L Chloride 99 Carbon Dioxide 32 H Anion Gap 4 L BUN 19 Creatinine 0.67 Est GFR ( Amer) > 60 Glucose 213 H Calcium 6.8 L* Ionized Calcium Margy Albumin 2.9 L 07/14/20 10:00 WBC RBC Hgb Hct MCV MCH MCHC RDW Plt Count Seg Neutrophils % Sodium Potassium Chloride Carbon Dioxide Anion Gap BUN Creatinine Est GFR ( Amer) Glucose Calcium Ionized Calcium Margy 1.03 L Albumin 07/06/20 07/06/20 07/06/20 09:49 17:38 17:38 Creatine Kinase 90 CK-MB (CK-2) Troponin I 0.063 NT-Pro-B Natriuret Pep 2980 H 3650 H 07/06/20 07/07/20 07/07/20 17:38 02:23 02:23 Creatine Kinase 88 CK-MB (CK-2) 1.44 1.13 Troponin I 0.059 0.064 NT-Pro-B Natriuret Pep 07/07/20 07/07/20 11:24 11:24 Creatine Kinase 70 CK-MB (CK-2) 0.73 Troponin I 0.044 NT-Pro-B Natriuret Pep Impressions: Chest X-Ray 07/06/20 08:13 IMPRESSION: CARDIAC ENLARGEMENT. VASCULAR CONGESTION. Acute Abdomen Series 07/06/20 09:37 IMPRESSION: NO RADIOGRAPHIC EVIDENCE FOR ACUTE ABDOMINAL DISEASE. PICC Line Insertion 07/10/20 09:00 IMPRESSION: SUCCESSFUL PLACEMENT OF A 5 FR DUAL LUMEN 48 CM PICC IN THE LEFT CEPHALIC VEIN. Assessment & Plan - Diagnosis (1) Nephrotic syndrome Is this a current diagnosis for this admission?: Yes (2) Anasarca Is this a current diagnosis for this admission?: Yes (3) Pseudomonas urinary tract infection Is this a current diagnosis for this admission?: Yes (4) Type 2 diabetes mellitus Qualifiers: Diabetes mellitus retirement insulin use: unspecified retirement insulin use status Diabetes mellitus complication status: with other specified complication Qualified Code(s): E11.69 - Type 2 diabetes mellitus with other specified complication Is this a current diagnosis for this admission?: Yes (5) Hypocalcemia Is this a current diagnosis for this admission?: Yes Plan: Patient will receive IV calcium gluconate and continue daily oral calcium therap y. - Time Time Spent with patient: 25-34 minutes Level of Care: MEDICAL Medications reviewed and adjusted accordingly: Yes Anticipated discharge: Home with Homehealth, SNF Anticipated DC Timeframe: within 72 hours - Inpatient Certification Based on my medical assessment, after consideration of the patient's comorbidities, presenting symptoms, or acuity I expect that the services needed warrant INPATIENT care.: Yes I certify that my determination is in accordance with my understanding of Medicare's requirements for reasonable and necessary INPATIENT services [42 CFR 412.3e].: Yes Medical Necessity: Significant Comorbidiites Make Outpatient Treatment Too Risky, Need Close Monitoring Due to Risk of Patient Decompensation, Need For Continuous Telemetry Monitoring, Risk of Complication if Not Cared For in Hospital, Risk of Diagnosis Which Will Require Inpatient Eval/Care/Monitoring Post Hospital Care: D/C Spray Technician Documentation, D/C or Transfer Summary - Plan Summary Plan Summary: See covering attending physician orders for details about care plan.
[2020-07-14] MEDS ORDERED: CALCIUM GLUCONATE 2,222 MG in DEXTROSE 5%-WATER 100 ML IV ONE (15:00)
[2020-07-14] MEDS: METOPROLOL SUCCINATE 25 MG TAB.SR.24H PO SCH (22:40)
[2020-07-14] MEDS: CARBOXYMETHYLCELLULOSE SOD 0.5% 0.4 ML DROPERETTE OU SCH (22:41)
[2020-07-14] MEDS: INSULIN GLARGINE,HUM.REC.ANLOG 1,000 UNIT/10 ML VIAL SUBCUT SCH (22:43)
[2020-07-15] MEDS: PREGABALIN 75 MG CAPSULE PO SCH ×3 (06:33→23:04)
[2020-07-15] MEDS: OXYCODONE HCL SR 10 MG TABLET PO SCH ×2 (06:34→18:05)
[2020-07-15] MEDS: LEVOTHYROXINE SODIUM 0.088 MG TABLET PO SCH (06:34)
[2020-07-15] MEDS: PANTOPRAZOLE SODIUM 40 MG TABLET.DR PO SCH ×2 (06:34→16:05)
[2020-07-15 07:47] LABS: ABSOLUTE EOSINOPHILS # (AUTO) 0.2 10^3/uL (0.0-0.6); ABSOLUTE LYMPHOCYTES (AUTO) 2.6 10^3/uL (0.5-4.7); ABSOLUTE MONOCYTES (AUTO) 0.8 10^3/uL (0.1-1.4); ABSOLUTE NEUT (AUTO) 3.1 10^3/uL (1.7-8.2); BASOPHILS % (AUTO) 0.7 % (0-2); EOSINOPHILS % (AUTO) 3.1 % (0-6); HEMATOCRIT 34.9 % (36.0-47.0); HEMOGLOBIN 11.7 g/dL (12.0-15.5); LYMPHOCYTES % (AUTO) 38.5 % (13-45); MEAN CORPUSCULAR HEMOGLOBIN 30.6 pg (27.0-33.4); MEAN CORPUSCULAR HGB CONC 33.5 g/dL (32.0-36.0); MEAN CORPUSCULAR VOLUME 91 fl (80-97); MONOCYTES % (AUTO) 11.9 % (3-13); PLATELET COUNT 209 10^3/uL (150-450); RED BLOOD COUNT 3.83 10^6/uL (3.72-5.28); RED CELL DISTRIBUTION WIDTH 15.5 % (11.5-14.0); SEGMENTED NEUTROPHILS % (AUTO) 45.8 % (42-78); TOTAL CELLS COUNTED % (AUTO) 100 %; WHITE BLOOD COUNT 6.7 10^3/uL (4.0-10.5)
[2020-07-15 08:05] LABS: ANION GAP 5 (5-19); BLOOD UREA NITROGEN 21 mg/dL (7-20); CALCIUM 8.3 mg/dL (8.4-10.2); CARBON DIOXIDE 37 mmol/L (22-30); CHLORIDE 93 mmol/L (98-107); GLUCOSE 265 mg/dL (75-110); POTASSIUM 4.5 mmol/L (3.6-5.0)
[2020-07-15] MEDS: INSULIN LISPRO 100 UNIT/ML 3 ML VIAL SUBCUT SCH ×4 (08:35→23:06)
[2020-07-15] MEDS: OXYCODONE HCL IR 5 MG TABLET PO SCH ×3 (08:36→23:05)
[2020-07-15] MEDS: LUBIPROSTONE 24 MCG CAPSULE PO SCH ×2 (11:16→18:06)
[2020-07-15] MEDS: BACLOFEN 10 MG TABLET PO SCH ×4 (11:16→23:04)
[2020-07-15] MEDS: FLUTICASONE/VILANTEROL 200-25 MCG/DOSE IH SCH (11:17)
[2020-07-15] MEDS: DOCUSATE SODIUM 100 MG CAPSULE PO SCH ×2 (11:17→18:05)
[2020-07-15] MEDS: CALCIUM CARBONATE 600 MG TABLET PO SCH (11:17)
[2020-07-15] MEDS: POTASSIUM CHLORIDE 10 MEQ TABLET.ER PO SCH ×2 (11:18→23:04)
[2020-07-15] MEDS: POLYETHYLENE GLYCOL 3350 POWDER 17 GM/1 PACKET PO SCH ×2 (11:19→18:03)
[2020-07-15] MEDS: NORMAL SALINE 10 ML SDV (SCHEDULED) IV SCH ×2 (11:19→23:06)
[2020-07-15] MEDS: ENOXAPARIN SODIUM INJ 40 MG/0.4 ML DISP.SYRIN SUBCUT SCH (11:19)
[2020-07-15] MEDS: SENNOSIDES/DOCUSATE 8.6-50 MG 1 EACH TABLET PO SCH ×2 (11:20→18:05)
[2020-07-15] MEDS: AMLODIPINE BESYLATE 5 MG TABLET PO SCH (11:20)
[2020-07-15] MEDS: CYCLOSPORINE 0.05% OPH EMULSIO 0.4 ML DROPERETTE OU SCH ×2 (11:20→23:05)
[2020-07-15] MEDS: CHOLECALCIFEROL (D3) 1,000 UNIT (25 MCG) TABLET PO SCH (11:21)
[2020-07-15] MEDS: CETIRIZINE 10 MG TABLET PO SCH (11:21)
[2020-07-15] MEDS: ALLOPURINOL 300 MG TABLET PO SCH (11:21)
[2020-07-15] MEDS ORDERED: OXYCODONE HCL IR 5 MG TABLET PO PRN (15:06)
[2020-07-15] MEDS: NORMAL SALINE 250 ML with FUROSEMIDE 250 MG IV PRN ×2 (19:42)
[2020-07-15] MEDS: PHARMACY COMMUNICATION ORDER MC SCH (19:43)
--- NOTE | 2020-07-15 21:03 | PDOC PROGRESS REPORT ---
Subjective Progress Note for:: 07/15/20 Subjective:: Patient seen by the bedside Reason For Visit: INTRACTABLE VOMITING,RECURRENT UTI,MORBID OBESITY Physical Exam Vital Signs: Temp Pulse Resp BP Pulse Ox 97.9 F 81 21 H 149/48 H 97 07/15/20 15:27 07/15/20 15:27 07/15/20 15:27 07/15/20 15:27 07/15/20 15:27 Intake & Output 07/14/20 07/15/20 07/16/20 06:59 06:59 06:59 Intake Total 1495 1954 181 Output Total 2475 5200 Balance -980 3245 181 Weight 171.2 kg 171.2 kg 171.2 kg General appearance: PRESENT: no acute distress Eye exam: PRESENT: PERRLA Respiratory exam: PRESENT: clear to auscultation pennie Cardiovascular exam: PRESENT: +S1, +S2 GI/Abdominal exam: PRESENT: soft Neurological exam: PRESENT: alert Results Laboratory Results: 07/15/20 06:42 07/15/20 06:42 07/15/20 07/15/20 06:42 06:42 WBC 6.7 RBC 3.83 Hgb 11.7 L Hct 34.9 L MCV 91 MCH 30.6 MCHC 33.5 RDW 15.5 H Plt Count 209 Seg Neutrophils % 45.8 Sodium 135.4 L Potassium 4.5 Chloride 93 L Carbon Dioxide 37 H Anion Gap 5 BUN 21 H Creatinine 0.77 Est GFR ( Amer) > 60 Glucose 265 H Calcium 8.3 L Magnesium 1.9 07/06/20 07/06/20 07/06/20 09:49 17:38 17:38 Creatine Kinase 90 CK-MB (CK-2) Troponin I 0.063 NT-Pro-B Natriuret Pep 2980 H 3650 H 07/06/20 07/07/20 07/07/20 17:38 02:23 02:23 Creatine Kinase 88 CK-MB (CK-2) 1.44 1.13 Troponin I 0.059 0.064 NT-Pro-B Natriuret Pep 07/07/20 07/07/20 11:24 11:24 Creatine Kinase 70 CK-MB (CK-2) 0.73 Troponin I 0.044 NT-Pro-B Natriuret Pep Impressions: Chest X-Ray 07/06/20 08:13 IMPRESSION: CARDIAC ENLARGEMENT. VASCULAR CONGESTION. Acute Abdomen Series 07/06/20 09:37 IMPRESSION: NO RADIOGRAPHIC EVIDENCE FOR ACUTE ABDOMINAL DISEASE. PICC Line Insertion 07/10/20 09:00 IMPRESSION: SUCCESSFUL PLACEMENT OF A 5 FR DUAL LUMEN 48 CM PICC IN THE LEFT CEPHALIC VEIN. Assessment & Plan - Diagnosis (1) Persistent vomiting Is this a current diagnosis for this admission?: Yes Plan: The vomiting has stopped, this is probably from UTI (2) Metabolic alkalosis with respiratory acidosis Is this a current diagnosis for this admission?: Yes (3) Urinary tract infection Qualifiers: Urinary tract infection type: catheter-associated UTI Indwelling urinary catheter type: indwelling urethral catheter Encounter type: initial encounter Qualified Code(s): T83.511A - Infection and inflammatory reaction due to indwelling urethral catheter, initial encounter; N39.0 - Urinary tract infection, site not specified Is this a current diagnosis for this admission?: Yes (4) Anasarca Is this a current diagnosis for this admission?: Yes (5) Nephrotic syndrome Is this a current diagnosis for this admission?: Yes (6) Pseudomonas urinary tract infection Is this a current diagnosis for this admission?: Yes - Time Time Spent with patient: 25-34 minutes Level of Care: IMCU Medications reviewed and adjusted accordingly: Yes Anticipated discharge: Home Anticipated DC Timeframe: within 72 hours
[2020-07-15] MEDS: METOPROLOL SUCCINATE 25 MG TAB.SR.24H PO SCH (23:04)
[2020-07-15] MEDS: CARBOXYMETHYLCELLULOSE SOD 0.5% 0.4 ML DROPERETTE OU SCH (23:05)
[2020-07-15] MEDS: POLYVINYL ALCOHOL 1.4% OPH SOLN 15 ML OU PRN (23:06)
[2020-07-15] MEDS: INSULIN GLARGINE,HUM.REC.ANLOG 1,000 UNIT/10 ML VIAL SUBCUT SCH (23:08)
[2020-07-15] MEDS: HYDROXYCHLOROQUINE SULFATE 200 MG TABLET PO SCH (23:09)
[2020-07-16] MEDS: OXYCODONE HCL SR 10 MG TABLET PO SCH ×2 (05:55→18:24)
[2020-07-16] MEDS: LEVOTHYROXINE SODIUM 0.088 MG TABLET PO SCH (05:55)
[2020-07-16] MEDS: PANTOPRAZOLE SODIUM 40 MG TABLET.DR PO SCH ×2 (05:55→18:23)
[2020-07-16] MEDS: PREGABALIN 75 MG CAPSULE PO SCH ×3 (05:55→22:24)
[2020-07-16] MEDS: HYDROXYCHLOROQUINE SULFATE 200 MG TABLET PO SCH ×2 (09:17→22:24)
[2020-07-16] MEDS: ALLOPURINOL 300 MG TABLET PO SCH (09:17)
[2020-07-16] MEDS: AMLODIPINE BESYLATE 5 MG TABLET PO SCH (09:18)
[2020-07-16] MEDS: INSULIN LISPRO 100 UNIT/ML 3 ML VIAL SUBCUT SCH ×4 (09:18→22:25)
[2020-07-16] MEDS: OXYCODONE HCL IR 5 MG TABLET PO SCH ×2 (09:19→18:22)
[2020-07-16] MEDS: BACLOFEN 10 MG TABLET PO SCH ×4 (09:19→22:25)
[2020-07-16] MEDS: CHOLECALCIFEROL (D3) 1,000 UNIT (25 MCG) TABLET PO SCH (09:19)
[2020-07-16] MEDS: LUBIPROSTONE 24 MCG CAPSULE PO SCH ×2 (09:19→18:23)
[2020-07-16] MEDS: SENNOSIDES/DOCUSATE 8.6-50 MG 1 EACH TABLET PO SCH ×2 (09:19→18:24)
[2020-07-16] MEDS: DOCUSATE SODIUM 100 MG CAPSULE PO SCH ×2 (09:19→18:23)
[2020-07-16] MEDS: CYCLOSPORINE 0.05% OPH EMULSIO 0.4 ML DROPERETTE OU SCH ×2 (09:20→22:27)
[2020-07-16] MEDS: FLUTICASONE/VILANTEROL 200-25 MCG/DOSE IH SCH (09:20)
[2020-07-16] MEDS: NORMAL SALINE 10 ML SDV (SCHEDULED) IV SCH ×2 (09:20→22:26)
[2020-07-16] MEDS: CETIRIZINE 10 MG TABLET PO SCH (09:20)
[2020-07-16] MEDS: CALCIUM CARBONATE 600 MG TABLET PO SCH (09:20)
[2020-07-16] MEDS: POTASSIUM CHLORIDE 10 MEQ TABLET.ER PO SCH ×2 (09:21→22:24)
[2020-07-16] MEDS: POLYETHYLENE GLYCOL 3350 POWDER 17 GM/1 PACKET PO SCH ×2 (09:21→18:23)
[2020-07-16] MEDS: ENOXAPARIN SODIUM INJ 40 MG/0.4 ML DISP.SYRIN SUBCUT SCH (09:21)
[2020-07-16] MEDS: ONDANSETRON 4 MG TAB.RAPDIS PO PRN (11:27)
[2020-07-16] MEDS: NORMAL SALINE 250 ML with FUROSEMIDE 250 MG IV PRN ×2 (18:24)
[2020-07-16] MEDS: PHARMACY COMMUNICATION ORDER MC SCH (18:26)
--- NOTE | 2020-07-16 20:25 | PDOC PROGRESS REPORT ---
Subjective Progress Note for:: 07/16/20 Subjective:: Patient seen by the bedside, she is improved, she will be [facility] Reason For Visit: INTRACTABLE VOMITING,RECURRENT UTI,MORBID OBESITY Physical Exam Vital Signs: Temp Pulse Resp BP Pulse Ox 98.4 F 89 19 131/41 H 96 07/16/20 20:00 07/16/20 20:00 07/16/20 20:00 07/16/20 20:00 07/16/20 20:00 Intake & Output 07/15/20 07/16/20 07/17/20 06:59 06:59 06:59 Intake Total 0990 884 5982 Output Total 5200 1150 1060 Balance -3246 -449 565 Weight 171.2 kg 172.5 kg 172 kg General appearance: PRESENT: no acute distress Eye exam: PRESENT: PERRLA Respiratory exam: PRESENT: clear to auscultation pennie Cardiovascular exam: PRESENT: +S1, +S2 GI/Abdominal exam: PRESENT: soft Neurological exam: PRESENT: alert, CN II-XII grossly intact Results Laboratory Results: 07/15/20 06:42 07/15/20 06:42 07/06/20 07/06/20 07/06/20 09:49 17:38 17:38 Creatine Kinase 90 CK-MB (CK-2) Troponin I 0.063 NT-Pro-B Natriuret Pep 2980 H 3650 H 07/06/20 07/07/20 07/07/20 17:38 02:23 02:23 Creatine Kinase 88 CK-MB (CK-2) 1.44 1.13 Troponin I 0.059 0.064 NT-Pro-B Natriuret Pep 07/07/20 07/07/20 11:24 11:24 Creatine Kinase 70 CK-MB (CK-2) 0.73 Troponin I 0.044 NT-Pro-B Natriuret Pep Impressions: Chest X-Ray 07/06/20 08:13 IMPRESSION: CARDIAC ENLARGEMENT. VASCULAR CONGESTION. Acute Abdomen Series 07/06/20 09:37 IMPRESSION: NO RADIOGRAPHIC EVIDENCE FOR ACUTE ABDOMINAL DISEASE. PICC Line Insertion 07/10/20 09:00 IMPRESSION: SUCCESSFUL PLACEMENT OF A 5 FR DUAL LUMEN 48 CM PICC IN THE LEFT CEPHALIC VEIN. Assessment & Plan - Diagnosis (1) Persistent vomiting Is this a current diagnosis for this admission?: Yes Plan: The vomiting has stopped, this is probably from UTI (2) Metabolic alkalosis with respiratory acidosis Is this a current diagnosis for this admission?: Yes (3) Urinary tract infection Qualifiers: Urinary tract infection type: catheter-associated UTI Indwelling urinary catheter type: indwelling urethral catheter Encounter type: initial encounter Qualified Code(s): T83.511A - Infection and inflammatory reaction due to indwelling urethral catheter, initial encounter; N39.0 - Urinary tract infection, site not specified Is this a current diagnosis for this admission?: Yes (4) Anasarca Is this a current diagnosis for this admission?: Yes (5) Nephrotic syndrome Is this a current diagnosis for this admission?: Yes (6) Pseudomonas urinary tract infection Is this a current diagnosis for this admission?: Yes - Time Time Spent with patient: 25-34 minutes Level of Care: TELE Medications reviewed and adjusted accordingly: Yes Anticipated discharge: SNF Anticipated DC Timeframe: within 24 hours
--- NOTE | 2020-07-16 20:32 | PDOC TRANSFER SUMMARY ---
Impression - Admit/DC Date/PCP Admission Date/Primary Care Provider: 07/06/20 14:28 NAYLA GEE MD Discharge Date: 07/17/20 - Discharge Diagnosis (1) Persistent vomiting Is this a current diagnosis for this admission?: Yes (2) Metabolic alkalosis with respiratory acidosis Is this a current diagnosis for this admission?: Yes (3) Urinary tract infection Is this a current diagnosis for this admission?: Yes (4) Anasarca Is this a current diagnosis for this admission?: Yes (5) Nephrotic syndrome Is this a current diagnosis for this admission?: Yes (6) Pseudomonas urinary tract infection Is this a current diagnosis for this admission?: Yes - Additional Information Referrals: [facility] [Outside] NAYLA GEE MD [Primary Care Provider] - Follow up as needed Home Medications: Allopurinol [Zyloprim 300 mg Tablet] 300 mg PO DAILY 11/12/19 Amlodipine Besylate [Norvasc 5 mg Tablet] 5 mg PO DAILY 11/12/19 Baclofen [Baclofen 10 mg Tablet] 10 mg PO QID 11/12/19 Benzocaine/Menthol [Chloraseptic Sore Throat Lozenge] 1 lozenge PO Q1HP PRN 11/12/19 Bisacodyl [Dulcolax 5 mg Tablet] 5 mg PO DAILYP PRN 11/12/19 Budesonide/Formoterol Fumarate [Symbicort HFA 160-4.5 mcg Inhaler 6 gm] 2 puff IH BID 11/12/19 Calcium Carbonate [Calcium] 600 mg PO DAILY 11/12/19 Carboxymethylcellulose Sodium [Refresh Celluvisc Drops] 1 drop OU QHS 11/12/19 Carboxymethylcellulose Sodium [Refresh Tears] 1 drop OU QIDP PRN 11/12/19 Cetirizine HCl [Zyrtec 10 mg Tablet] 10 mg PO DAILY 11/12/19 Cholecalciferol (Vitamin D3) [Vitamin D3 1000 Unit Tablet] 4,000 unit PO DAILY 11/12/19 Cranberry Fruit Extract [Cranberry 250 mg Capsule] 250 mg PO DAILY 11/12/19 Cyclosporine 0.05% Oph Emulsio [Restasis 0.05% Oph Emulsion Pf 0.4 ml] 1 drop OU Q12 02/02/20 Furosemide [Lasix 40 mg Tablet] 40 mg PO BID 11/12/19 Glimepiride [Amaryl] 2 mg PO DAILY 11/12/19 Hydroxychloroquine Sulfate [Plaquenil 200 mg Tablet] 200 mg PO Q12 11/12/19 Insulin Glargine,Hum.rec.anlog [Lantus Insulin 100 Unit/1 ml 10 ml] 5 units SQ QHS 11/12/19 Insulin Lispro [Humalog Insulin (Lispro) 100 unit/mL] 0 unit SUBCUT .SLD SCALE 11/12/19 Levothyroxine Sodium [Synthroid 0.088 mg Tablet] 0.088 mg PO Q6AM 11/12/19 Menthol/Camphor [Sarna Original 0.5%-0.5% Lotn] 1 applic TOP QIDP PRN 11/12/19 Metoprolol Succinate [Toprol Xl 25 mg Tab.sr] 25 mg PO QHS 11/12/19 Mineral Oil/Hydrophil Petrolat [Aquaphor Healing Ointment] 1 applic TOP BID 11/12/19 Mirabegron [Myrbetriq] 25 mg PO DAILY 11/12/19 Montelukast Sodium [Singulair 10 mg Tablet] 10 mg PO QHS 11/12/19 Naloxegol Oxalate [Movantik 25 mg Tablet] 25 mg PO DAILY 11/12/19 Ondansetron [Zofran Odt 4 mg Tablet] 4 mg PO Q6HP PRN 11/12/19 Oxycodone HCl [Oxy-Ir 5 mg Tablet] 10 mg PO BID 11/12/19 Pantoprazole Sodium [Protonix [address] Tablet] 40 mg PO Q12 11/12/19 Pimecrolimus 1 applic TOP BID 11/12/19 Polyethylene Glycol 3350 [Miralax Powder 17 gm/Packet] 1 packet PO BID 11/12/19 Polyethylene Glycol 3350 [Miralax Powder 17 gm/Packet] 1 packet PO DAILYP PRN 11/12/19 Polyvinyl Alcohol [Liquitears 1.4% Ophth Soln 15 ml] 1 drop OU QIDP PRN 11/12/19 Potassium Chloride [Klor-Con 10 Meq Tablet ER] 10 meq PO Q12 11/12/19 Pregabalin 150 mg PO Q8 11/12/19 Sennosides/Docusate Sodium [Senna Plus 8.6-50 mg Tablet] 1 tab PO BID 11/12/19 Sodium Chloride [[place] Nasal [place] 44 ml Bottle] 1 spray NASL DAILYP PRN 11/12/19 Fluconazole [Diflucan] 150 mg PO MO@1000 07/06/20 Menthol [Biofreeze] 1 applic TP Q6HP PRN 07/06/20 Oxycodone HCl [Oxy-Ir 5 mg Tablet] 10 mg PO Q8@0000,0800,1600 tablet 07/16/20 Oxycodone HCl [Oxycontin Sr 10 mg Tablet] 20 mg PO Q12A tab.sr.12h 07/16/20 Pregabalin [Lyrica 75 mg Capsule] 150 mg PO Q8 capsule 07/16/20 Sennosides/Docusate 8.6-50 mg [Senna Plus Tablet] 1 each PO BID tablet 07/16/20 History of Present Illiness History of Present Illness: NETTA RICO is a 70 year old female, She is a resident of [facility], she was transferred from the halfway to the emergency room for evaluation of persistent, intractable vomiting. There is associated abdominal pain according to the history she has not had a bowel movement in approximately a week In the emergency room attempt was made to Obtain a CAT scan of the abdomen and pelvis but because she is morbidly obese, body mass index 73.8, she did not fit into the CAT scan machine so this was not done.She is vomiting persistently we attempted to insert a nasogastric tube on the floor, this was not successful, patient refused further attempts by the nursing staff. She has a history of small bowel obstruction, she has indwelling chronic suprapubic urinary catheter with chronic UTIs, morbidly obese bedbound very sedentary lifestyle.The laboratory data demonstrated leukocytosis WBC was 12,000 with a left shift there is grossly abnormal urinalysis Hospital Course Hospital Course: Patient was admitted for the management of vomiting persistently symptomatic nephrotic syndrome with anasarca, Pseudomonas UTI, metabolic alkalosis. At presentation patient was vomiting persistently, a CAT scan of the abdomen and pelvis with contrast could not be obtained because patient was too large to fit the CAT scan suite, the passage of NG tube was not successful, patient was treated empirically, conservatively initially by keeping her n.p.o. with hydration and subsequently the vomiting stopped. She also have anasarca secondary to nephrotic syndrome with nephrotic range proteinuria. She has chronic indwelling suprapubic catheter, urine culture grew Pseudomonas UTI, sensitive to aztreonam, she was treated intravenously with antibiotic, she has a long list of allergy to penicillin, fluoroquinolones. Patient is stable enough for discharge back to halfway. Physical Exam Vital Signs: Temp Pulse Resp BP Pulse Ox 98.4 F 89 19 131/41 H 96 07/16/20 20:00 07/16/20 20:00 07/16/20 20:00 07/16/20 20:00 07/16/20 20:00 Intake & Output 07/15/20 07/16/20 07/17/20 06:59 06:59 06:59 Intake Total 6653 574 2505 Output Total 5200 1150 1060 Balance -3246 -449 565 Weight 171.2 kg 172.5 kg 172 kg General appearance: PRESENT: no acute distress Eye exam: PRESENT: PERRLA Respiratory exam: PRESENT: clear to auscultation pennie Cardiovascular exam: PRESENT: +S1, +S2 GI/Abdominal exam: PRESENT: soft Neurological exam: PRESENT: alert, CN II-XII grossly intact Results Laboratory Results: WBC 6.7 10^3/uL (4.0-10.5) 07/15/20 06:42 RBC 3.83 10^6/uL (3.72-5.28) 07/15/20 06:42 Hgb 11.7 g/dL (12.0-15.5) L 07/15/20 06:42 Hct 34.9 % (36.0-47.0) L 07/15/20 06:42 MCV 91 fl (80-97) 07/15/20 06:42 MCH 30.6 pg (27.0-33.4) 07/15/20 06:42 MCHC 33.5 g/dL (32.0-36.0) 07/15/20 06:42 RDW 15.5 % (11.5-14.0) H 07/15/20 06:42 Plt Count 209 10^3/uL (150-450) 07/15/20 06:42 Lymph % (Auto) 38.5 % (13-45) 07/15/20 06:42 Lander % (Auto) 11.9 % (3-13) 07/15/20 06:42 Eos % (Auto) 3.1 % (0-6) 07/15/20 06:42 Baso % (Auto) 0.7 % (0-2) 07/15/20 06:42 Absolute Neuts (auto) 3.1 10^3/uL (1.7-8.2) 07/15/20 06:42 Absolute Lymphs (auto) 2.6 10^3/uL (0.5-4.7) 07/15/20 06:42 Absolute Monos (auto) 0.8 10^3/uL (0.1-1.4) 07/15/20 06:42 Absolute Eos (auto) 0.2 10^3/uL (0.0-0.6) 07/15/20 06:42 Absolute Basos (auto) 0.0 10^3/uL (0.0-0.2) 07/15/20 06:42 Seg Neutrophils % 45.8 % (42-78) 07/15/20 06:42 Platelet Estimate Cancelled 07/09/20 05:53 PT 13.9 SEC (11.4-15.4) 07/06/20 17:38 INR 1.05 07/06/20 17:38 APTT 29.3 SEC (23.5-35.8) 07/06/20 17:38 Carbonic Acid 1.49 mmol/L (1.05-1.35) H 07/06/20 17:56 HCO3/H2CO3 Ratio 24:1 07/06/20 17:56 ABG pH 7.49 (7.35-7.45) H 07/06/20 17:56 ABG pCO2 49.4 mmHg (35-45) H 07/06/20 17:56 ABG pO2 75.5 mmHg (80-100) L 07/06/20 17:56 ABG HCO3 36.5 mmol/L (20-24) H 07/06/20 17:56 ABG Total CO2 38.0 mmol/L (21-25) H 07/06/20 17:56 ABG O2 Saturation 95.9 % (94-98) 07/06/20 17:56 ABG Base Excess 11.3 mmol/L 07/06/20 17:56 FiO2 1.5L 07/06/20 17:56 Sodium 135.4 mmol/L (137-145) L 07/15/20 06:42 Potassium 4.5 mmol/L (3.6-5.0) 07/15/20 06:42 Chloride 93 mmol/L (98-107) L 07/15/20 06:42 Carbon Dioxide 37 mmol/L (22-30) H 07/15/20 06:42 Anion Gap 5 (5-19) 07/15/20 06:42 BUN 21 mg/dL (7-20) H 07/15/20 06:42 Creatinine 0.77 mg/dL (0.52-1.25) 07/15/20 06:42 Est GFR ( Amer) > 60 (>60) 07/15/20 06:42 Est GFR (MDRD) Non-Af > 60 (>60) 07/15/20 06:42 Glucose 265 mg/dL (75-110) H 07/15/20 06:42 POC Glucose 270 mg/dL (70-110) H 07/16/20 16:46 Hemoglobin A1c % 7.6 % (4.7-6.0) H 07/07/20 07:59 Lactic Acid 1.2 mmol/L (0.7-2.1) 07/06/20 09:49 Calcium 8.3 mg/dL (8.4-10.2) L 07/15/20 06:42 Ionized Calcium Margy 1.03 mmol/L (1.14-1.30) L 07/14/20 10:00 Phosphorus 3.6 mg/dL (2.5-4.5) 07/06/20 17:38 Magnesium 1.9 mg/dL (1.6-2.3) 07/15/20 06:42 Total Bilirubin 0.5 mg/dL (0.2-1.3) 07/11/20 23:11 Direct Bilirubin 0.4 mg/dL (0.0-0.4) 07/11/20 23:11 Neonat Total Bilirubin Not Reportable 07/11/20 23:11 Neonat Direct Bilirubin Not Reportable 07/11/20 23:11 Neonat Indirect Bili Not Reportable 07/11/20 23:11 AST 18 U/L (14-36) 07/11/20 23:11 ALT 12 U/L (<35) 07/11/20 23:11 Alkaline Phosphatase 64 U/L (38-126) 07/11/20 23:11 Ammonia < 8.7 umol/L (9-33) L 07/06/20 17:38 Creatine Kinase 70 U/L (30-135) 07/07/20 11:24 CK-MB (CK-2) 0.73 ng/mL (<4.55) 07/07/20 11:24 Troponin I 0.044 ng/mL 07/07/20 11:24 NT-Pro-B Natriuret Pep 3650 pg/mL (<125) H 07/06/20 17:38 Total Protein 5.4 g/dL (6.3-8.2) L 07/11/20 23:11 Albumin 2.9 g/dL (3.5-5.0) L 07/14/20 09:15 Triglycerides 68 mg/dL (<150) 07/07/20 07:59 Cholesterol 174.81 mg/dL (0-200) 07/07/20 07:59 LDL Cholesterol Direct 97 mg/dL (<100) 07/07/20 07:59 VLDL Cholesterol 14.0 mg/dL (10-31) 07/07/20 07:59 HDL Cholesterol 72 mg/dL (>40) 07/07/20 07:59 Amylase < 30 U/L (30-110) L 07/06/20 17:38 Lipase 38.9 U/L (23-300) 07/06/20 17:38 TSH 1.03 uIU/mL (0.47-4.68) 07/06/20 17:38 Free T4 1.19 ng/dL (0.78-2.19) 07/06/20 17:38 Urine Color YELLOW 07/06/20 07:46 Urine Appearance SLIGHTLY-CLOUDY 07/06/20 07:46 Urine pH 7.0 (5.0-9.0) 07/06/20 07:46 Ur Specific [place] 1.014 07/06/20 07:46 Urine Protein >=500 mg/dL (NEGATIVE) H 07/06/20 07:46 Urine Glucose (UA) 150 mg/dL (NEGATIVE) H 07/06/20 07:46 Urine Ketones NEGATIVE mg/dL (NEGATIVE) 07/06/20 07:46 Urine Blood MODERATE (NEGATIVE) H 07/06/20 07:46 Urine Nitrite (Reflex) POSITIVE (NEGATIVE) H 07/06/20 07:46 Urine Bilirubin NEGATIVE (NEGATIVE) 07/06/20 07:46 Urine Urobilinogen NEGATIVE mg/dL (<2.0) 07/06/20 07:46 Leukocyte Esterase Rfl SMALL (NEGATIVE) H 07/06/20 07:46 Urine RBC (Auto) 13 /HPF 07/06/20 07:46 Urine Bacteria (Auto) TRACE /HPF 07/06/20 07:46 Urine WBC (Reflex) 14 /HPF 07/06/20 07:46 Squamous Epi Cells Auto 1 /HPF 07/06/20 07:46 Amorphous Sediment Auto TRACE /HPF 07/06/20 07:46 Urine Mucus (Auto) RARE /LPF 07/06/20 07:46 Urine Creatinine 26.4 mg/dL (15-278) 07/09/20 05:15 Protein/Creatinin Ratio 4.8 mg/mg (0.0-0.2) H 07/09/20 05:15 Urine Total Protein 127.5 mg/dL (<12) H 07/09/20 05:15 Urine Ascorbic Acid NEGATIVE (NEGATIVE) 07/06/20 07:46 Slides for Path Review Cancelled 07/09/20 05:53 07/06/20 07/06/20 07/06/20 09:49 17:38 17:38 CK-MB (CK-2) 1.44 Troponin I 0.063 0.059 NT-Pro-B Natriuret Pep 2980 H 3650 H 07/07/20 07/07/20 02:23 11:24 CK-MB (CK-2) 1.13 0.73 Troponin I 0.064 0.044 NT-Pro-B Natriuret Pep Impressions: Chest X-Ray 07/06/20 08:13 IMPRESSION: CARDIAC ENLARGEMENT. VASCULAR CONGESTION. Acute Abdomen Series 07/06/20 09:37 IMPRESSION: NO RADIOGRAPHIC EVIDENCE FOR ACUTE ABDOMINAL DISEASE. PICC Line Insertion 07/10/20 09:00 IMPRESSION: SUCCESSFUL PLACEMENT OF A 5 FR DUAL LUMEN 48 CM PICC IN THE LEFT CEPHALIC VEIN. Stroke Is this a Stroke Patient?: No Acute Heart Failure Is this a Heart Failure Patient?: No
[2020-07-16] MEDS: CARBOXYMETHYLCELLULOSE SOD 0.5% 0.4 ML DROPERETTE OU SCH (22:00)
[2020-07-16] MEDS: METOPROLOL SUCCINATE 25 MG TAB.SR.24H PO SCH (22:24)
[2020-07-16] MEDS: INSULIN GLARGINE,HUM.REC.ANLOG 1,000 UNIT/10 ML VIAL SUBCUT SCH (22:25)
[2020-07-16] MEDS: POLYVINYL ALCOHOL 1.4% OPH SOLN 15 ML OU PRN (22:26)
[2020-07-17] MEDS: OXYCODONE HCL IR 5 MG TABLET PO SCH ×2 (00:36→09:29)
[2020-07-17] MEDS: LEVOTHYROXINE SODIUM 0.088 MG TABLET PO SCH (05:35)
[2020-07-17] MEDS: PANTOPRAZOLE SODIUM 40 MG TABLET.DR PO SCH (05:35)
[2020-07-17] MEDS: PREGABALIN 75 MG CAPSULE PO SCH (05:35)
[2020-07-17] MEDS: POLYETHYLENE GLYCOL 3350 POWDER 17 GM/1 PACKET PO SCH (09:31)
[2020-07-17] MEDS: LUBIPROSTONE 24 MCG CAPSULE PO SCH (09:31)
[2020-07-17] MEDS: AMLODIPINE BESYLATE 5 MG TABLET PO SCH (09:31)
[2020-07-17] MEDS: BACLOFEN 10 MG TABLET PO SCH (09:32)
[2020-07-17] MEDS: CALCIUM CARBONATE 600 MG TABLET PO SCH (09:32)
[2020-07-17] MEDS: HYDROXYCHLOROQUINE SULFATE 200 MG TABLET PO SCH (09:32)
[2020-07-17] MEDS: CHOLECALCIFEROL (D3) 1,000 UNIT (25 MCG) TABLET PO SCH (09:34)
[2020-07-17] MEDS: INSULIN LISPRO 100 UNIT/ML 3 ML VIAL SUBCUT SCH ×2 (09:34→12:10)
[2020-07-17] MEDS: CYCLOSPORINE 0.05% OPH EMULSIO 0.4 ML DROPERETTE OU SCH (09:35)
[2020-07-17] MEDS: NORMAL SALINE 10 ML SDV (SCHEDULED) IV SCH (09:36)
[2020-07-17] MEDS: DOCUSATE SODIUM 100 MG CAPSULE PO SCH (09:37)
[2020-07-17] MEDS: FLUTICASONE/VILANTEROL 200-25 MCG/DOSE IH SCH (09:37)
[2020-07-17] MEDS: POTASSIUM CHLORIDE 10 MEQ TABLET.ER PO SCH (09:38)
[2020-07-17] MEDS: ENOXAPARIN SODIUM INJ 40 MG/0.4 ML DISP.SYRIN SUBCUT SCH (09:38)
[2020-07-17] MEDS: ALLOPURINOL 300 MG TABLET PO SCH (09:38)
[2020-07-17] MEDS: SENNOSIDES/DOCUSATE 8.6-50 MG 1 EACH TABLET PO SCH (09:38)
[2020-07-17] MEDS: CETIRIZINE 10 MG TABLET PO SCH (09:39)
[2020-07-17 11:04] VITALS: BP 132/48
== END 2020-07-17 13:25 | DRG 699 ==
LOC: ER 07:31 → EH 14:28 → 4S 16:25
PROVIDERS: ADMIT Internal Medicine; ATTEND Internal Medicine
PROC: 02HV33Z Insertion of Infusion Device into Superior Vena Cava, Percutaneous Approach (ICD-10-PCS; principal; 2020-07-10)
PROC: B518ZZA Fluoroscopy of Superior Vena Cava, Guidance (ICD-10-PCS; 2020-07-10)
PROC: B548ZZA Ultrasonography of Superior Vena Cava, Guidance (ICD-10-PCS; 2020-07-10)
DX: T83.511A Infection and inflammatory reaction due to indwelling urethral catheter, initial encounter (principal); E87.4 Mixed disorder of acid-base balance; N04.9 Nephrotic syndrome with unspecified morphologic changes; I50.32 Chronic diastolic (congestive) heart failure; Z68.45 Body mass index [BMI] 70 or greater, adult; N39.0 Urinary tract infection, site not specified; B96.5 Pseudomonas (aeruginosa) (mallei) (pseudomallei) as the cause of diseases classified elsewhere; E83.51 Hypocalcemia; K59.00 Constipation, unspecified; E78.00 Pure hypercholesterolemia, unspecified; I11.0 Hypertensive heart disease with heart failure; E11.65 Type 2 diabetes mellitus with hyperglycemia; E03.9 Hypothyroidism, unspecified; I73.9 Peripheral vascular disease, unspecified; J44.9 Chronic obstructive pulmonary disease, unspecified; K21.9 Gastro-esophageal reflux disease without esophagitis; M06.9 Rheumatoid arthritis, unspecified; G89.4 Chronic pain syndrome; F32.9 Major depressive disorder, single episode, unspecified; E66.01 Morbid (severe) obesity due to excess calories; Z98.84 Bariatric surgery status; Z74.01 Bed confinement status; Z79.84 Long term (current) use of oral hypoglycemic drugs; Z79.4 Long term (current) use of insulin; Z79.891 Long term (current) use of opiate analgesic; Z79.899 Other long term (current) drug therapy
CPT/HCPCS: 36415; 36573; 36600; 71045; 74022; 80048; 80053; 80061; 81001; 82040; 82140; 82150; 82330; 82550; 82553; 82570; 82803; 82962; 83036; 83605; 83690; 83735; 83880; 84100; 84156; 84439; 84443; 84484; 85025; 85610; 85730; 87040; 87077; 87086; 87088; 87186; 93005; 93010; 96374; 96375; 99285; C1769; J0610; J1642; J1650; J1815; J1940; J2405; J3480; J3490; J7050; J7060; J7120; S0119

== ENCOUNTER 2020-07-19 03:31 | Emergency (ER) | payer MEDICARE, MEDICAID ==
--- NOTE | 2020-07-19 04:09 | ER Document Report ---
ED GI/ - General Chief Complaint: Nausea/Vomiting Stated Complaint: ABDOMINAL PAIN // NAUSEA // VOMITING Time Seen by Provider: 07/19/20 04:05 Primary Care Provider: NAYLA GEE MD [Primary Care Provider] - Follow up as needed Information source: Patient Notes: DISCHARGE NOTE BY DR More [facility] [Outside] NAYLA GEE MD [Primary Care Provider] - Follow up as needed Home Medications: Allopurinol [Zyloprim 300 mg Tablet] 300 mg PO DAILY 11/12/19 Amlodipine Besylate [Norvasc 5 mg Tablet] 5 mg PO DAILY 11/12/19 Baclofen [Baclofen 10 mg Tablet] 10 mg PO QID 11/12/19 Benzocaine/Menthol [Chloraseptic Sore Throat Lozenge] 1 lozenge PO Q1HP PRN 11/12/19 Bisacodyl [Dulcolax 5 mg Tablet] 5 mg PO DAILYP PRN 11/12/19 Budesonide/Formoterol Fumarate [Symbicort HFA 160-4.5 mcg Inhaler 6 gm] 2 puff IH BID 11/12/19 Calcium Carbonate [Calcium] 600 mg PO DAILY 11/12/19 Carboxymethylcellulose Sodium [Refresh Celluvisc Drops] 1 drop OU QHS 11/12/19 Carboxymethylcellulose Sodium [Refresh Tears] 1 drop OU QIDP PRN 11/12/19 Cetirizine HCl [Zyrtec 10 mg Tablet] 10 mg PO DAILY 11/12/19 Cholecalciferol (Vitamin D3) [Vitamin D3 1000 Unit Tablet] 4,000 unit PO DAILY 11/12/19 Cranberry Fruit Extract [Cranberry 250 mg Capsule] 250 mg PO DAILY 11/12/19 Cyclosporine 0.05% Oph Emulsio [Restasis 0.05% Oph Emulsion Pf 0.4 ml] 1 drop OU Q12 11/12/19 Furosemide [Lasix 40 mg Tablet] 40 mg PO BID 11/12/19 Glimepiride [Amaryl] 2 mg PO DAILY 11/12/19 Hydroxychloroquine Sulfate [Plaquenil 200 mg Tablet] 200 mg PO Q12 11/12/19 Insulin Glargine,Hum.rec.anlog [Lantus Insulin 100 Unit/1 ml 10 ml] 5 units SQ QHS 11/12/19 Insulin Lispro [Humalog Insulin (Lispro) 100 unit/mL] 0 unit SUBCUT .SLD SCALE 11/12/19 Levothyroxine Sodium [Synthroid 0.088 mg Tablet] 0.088 mg PO Q6AM 11/12/19 Menthol/Camphor [Sarna Original 0.5%-0.5% Lotn] 1 applic TOP QIDP PRN 11/12/19 Metoprolol Succinate [Toprol Xl 25 mg Tab.sr] 25 mg PO QHS 11/12/19 Mineral Oil/Hydrophil Petrolat [Aquaphor Healing Ointment] 1 applic TOP BID 11/12/19 Mirabegron [Myrbetriq] 25 mg PO DAILY 11/12/19 Montelukast Sodium [Singulair 10 mg Tablet] 10 mg PO QHS 11/12/19 Naloxegol Oxalate [Movantik 25 mg Tablet] 25 mg PO DAILY 11/12/19 Ondansetron [Zofran Odt 4 mg Tablet] 4 mg PO Q6HP PRN 11/12/19 Oxycodone HCl [Oxy-Ir 5 mg Tablet] 10 mg PO BID 11/12/19 Pantoprazole Sodium [Protonix [address] Tablet] 40 mg PO Q12 11/12/19 Pimecrolimus 1 applic TOP BID 11/12/19 Polyethylene Glycol 3350 [Miralax Powder 17 gm/Packet] 1 packet PO BID 11/12/19 Polyethylene Glycol 3350 [Miralax Powder 17 gm/Packet] 1 packet PO DAILYP PRN 11/12/19 Polyvinyl Alcohol [Liquitears 1.4% Ophth Soln 15 ml] 1 drop OU QIDP PRN 11/12/19 Potassium Chloride [Klor-Con 10 Meq Tablet ER] 10 meq PO Q12 11/12/19 Pregabalin 150 mg PO Q8 11/12/19 Sennosides/Docusate Sodium [Senna Plus 8.6-50 mg Tablet] 1 tab PO BID 11/12/19 Sodium Chloride [[place] Nasal [place] 44 ml Bottle] 1 spray NASL DAILYP PRN 11/12/19 Fluconazole [Diflucan] 150 mg PO MO@1000 07/06/20 Menthol [Biofreeze] 1 applic TP Q6HP PRN 07/06/20 Oxycodone HCl [Oxy-Ir 5 mg Tablet] 10 mg PO Q8@0000,0800,1600 tablet 07/16/20 Oxycodone HCl [Oxycontin Sr 10 mg Tablet] 20 mg PO Q12A tab.sr.12h 07/16/20 Pregabalin [Lyrica 75 mg Capsule] 150 mg PO Q8 capsule 07/16/20 Sennosides/Docusate 8.6-50 mg [Senna Plus Tablet] 1 each PO BID tablet 07/16/20 History of Present Illiness History of Present Illness: NETTA RICO is a 70 year old female, She is a resident of [facility], she was transferred from the assisted to the emergency room for evaluation of persistent, intractable vomiting. There is associated abdominal pain according to the history she has not had a bowel movement in approximately a week In the emergency room attempt was made to Obtain a CAT scan of the abdomen and pelvis but because she is morbidly obese, body mass index 73.8, she did not fit into the CAT scan machine so this was not done.She is vomiting persistently we attempted to insert a nasogastric tube on the floor, this was not successful, patient refused further attempts by the nursing staff. She has a history of small bowel obstruction, she has indwelling chronic suprapubic urinary catheter with chronic UTIs, morbidly obese bedbound very sedentary lifestyle.The laboratory data demonstrated leukocytosis WBC was 12,000 with a left shift there is grossly abnormal urinalysis Hospital Course Hospital Course: Patient was admitted for the management of vomiting persistently symptomatic nephrotic syndrome with anasarca, Pseudomonas UTI, metabolic alkalosis. At presentation patient was vomiting persistently, a CAT scan of the abdomen and pelvis with contrast could not be obtained because patient was too large to fit the CAT scan suite, the passage of NG tube was not successful, patient was treated empirically, conservatively initially by keeping her n.p.o. with hydration and subsequently the vomiting stopped. She also have anasarca secondary to nephrotic syndrome with nephrotic range proteinuria. She has chronic indwelling suprapubic catheter, urine culture grew Pseudomonas UTI, sensitive to aztreonam, she was treated intravenously with antibiotic, she has a long list of allergy to penicillin, fluoroquinolones. Patient is stable enough for discharge back to assisted. 07/19/20 04:02 - ED Nursing Note by JASON RUSSELL Num: [id number] : 1950 Patient Age: [age] Y/O FEMALE WELL KNOWN TO [facility] , JUST D/C'D YESTERDAY FROM THIS FACILITY FOR ABD PAIN, PRESENT REPORTING THAT SHE STARTED HAVING ABD PAIN LAST NIGHT AT 1900 HRS WITH N/V. GIVEN 4 ZOFRAM IM IN ROUTE BY EMS. INAD. RESP EVEN AND NON- LABORED, SKIN W/D. MY NOTES 70-year-old female arrives by EMS with chief complaint of epigastric pain. Patient has been on hydroxychloroquine and and Amaryl both of which cause nausea and vomiting. Patient is easily awakened and advises she believes this is her lap band pointing to her epigastric area. Patient was given IM Zofran and has not had no nausea and vomiting since upon arrival. Patient grew up on urine culture Pseudomonas. TRAVEL OUTSIDE OF THE [place] IN LAST 30 DAYS: No - HPI Patient complains to provider of: Abdominal pain, Vomiting Onset: This evening Timing/Duration: Sudden Quality of pain: Achy Severity at maximum: Mild Severity in ED: Mild Pain Level: 1 Location: Epigastric Vaginal bleeding (Compared to normal period): denies: Spotting, Carpenter/Labor, Similar, Heavier, Severe Menstrual period history: Post-menopausal - Related Data Allergies/Adverse Reactions: ciprofloxacin [From Cipro] Allergy (Severe, Verified 07/19/20 03:58) Anaphylaxis Penicillins Allergy (Severe, Verified 07/19/20 03:58) Anaphylaxis adhesive tape [Adhesive Tape] Adverse Reaction (Severe, Verified 07/19/20 03:58) BLISTERS, SKIN BECOMES RAW indomethacin [From Indocin] Adverse Reaction (Severe, Verified 07/19/20 03:58) CAUSES SWELLING AND INFLAMMATION meperidine HCl [From Demerol] Adverse Reaction (Severe, Verified 07/19/20 03:58) Hallucinations Past Medical History - General Information source: Patient, Emergency Med Personnel - Social History Smoking Status: Never Smoker Cigarette use (# per day): No Chew tobacco use (# tins/day): No Smoking Education Provided: No Frequency of alcohol use: None Drug Abuse: None Lives with: Shelter Family History: Reviewed & Not Pertinent, Hypertension Patient has suicidal ideation: No Patient has homicidal ideation: No - Past Medical History Cardiac Medical History: Reports: Hx Congestive Heart Failure, Hx Hypercholesterolemia, Hx Hypertension, Hx Peripheral Vascular Disease, Hx Heart Murmur Denies: Hx Heart Attack Pulmonary Medical History: Reports: Hx Asthma - severe,neb,inhaler, Hx Bronchitis, Hx COPD Denies: Hx Pneumonia, Hx Respiratory Failure, Hx Sleep Apnea, Hx Tuberculosis Neurological Medical History: Denies: Hx Cerebrovascular Accident, Hx Seizures, Hx Parkinson's Disease Endocrine Medical History: Reports: Hx Diabetes Mellitus Type 2, Hx Hypothyroidism Renal/ Medical History: Reports: Hx Ovarian Cysts. Denies: Hx Peritoneal Dialysis GI Medical History: Reports: Hx Gastroesophageal Reflux Disease, Hx Hiatal Hernia, Hx Irritable Bowel. Denies: Hx Pancreatitis Musculoskeletal Medical History: Reports Hx Arthritis - RA, Reports Hx Fibromyalgia, Denies Hx Systemic Lupus Erythematosus Psychiatric Medical History: Reports: Hx Depression Traumatic Medical History: Reports: Hx Fractures Past Surgical History: Reports: Hx Cholecystectomy, Hx Gastric Bypass Surgery - Lap Band, post in stomach for lap band , Hx Hysterectomy, Hx Orthopedic Surgery - right hip x3, left knee x1, Other - LAP-BAND procedures - Immunizations Hx Diphtheria, Pertussis, Tetanus Vaccination: Yes Hx Pneumococcal Vaccination: 10/11/12 Review of Systems - Review of Systems Constitutional: See HPI, Weakness EENT: No symptoms reported Cardiovascular: No symptoms reported Respiratory: No symptoms reported Gastrointestinal: See HPI, Nausea, Vomiting Genitourinary: No symptoms reported Female Genitourinary: No symptoms reported Musculoskeletal: No symptoms reported Skin: No symptoms reported Hematologic/Lymphatic: No symptoms reported Neurological/Psychological: No symptoms reported Physical Exam - Vital signs Vitals: Temp Pulse Resp BP Pulse Ox 97 F L 95 16 154/90 H 94 07/19/20 03:58 07/19/20 03:58 07/19/20 03:58 07/19/20 03:58 07/19/20 03:58 Interpretation: Normal - General General appearance: Other - Sleepy but easily awakened and very oriented to self and situation - HEENT Head: Normocephalic, Atraumatic Eyes: Normal Pupils: PERRL Mucous membranes: Dry Pharynx: Normal Neck: Normal - Respiratory Respiratory status: No respiratory distress Chest status: Nontender Breath sounds: Normal Chest palpation: Normal - Cardiovascular Rhythm: Regular Heart sounds: Normal auscultation Murmur: No - Abdominal Inspection: Morbidly Obese Distension: No distension Bowel sounds: Normal Tenderness: Nontender Organomegaly: No organomegaly - Rectal Hemorrhoids: Other - deferred - Genitourinary Bimanuel exam: Other - deferred - Back Back: Normal, Nontender - Extremities General upper extremity: Normal inspection, Nontender, Normal color, Normal ROM, Normal temperature General lower extremity: Normal inspection, Nontender, Normal color, Normal ROM, Normal temperature, Normal weight bearing. No: Anson's sign - Neurological Neuro grossly intact: Yes Cognition: Normal Orientation: AAOx4 Clarence Coma Scale Eye Opening: Spontaneous Clarence Coma Scale Verbal: Oriented Jaye Coma Scale Motor: Obeys Commands Jaye Coma Scale Total: 15 Speech: Normal Motor strength normal: LUE, RUE, LLE, RLE Sensory: Normal - Psychological Associated symptoms: Normal affect, Normal mood - Skin Skin Temperature: Warm Skin Moisture: Dry Skin Color: Normal Course - Vital Signs Vital signs: Temp Pulse Resp BP Pulse Ox 97 F L 95 16 154/90 H 94 07/19/20 03:58 07/19/20 03:58 07/19/20 03:58 07/19/20 03:58 07/19/20 03:58 Critical Care Note - Critical Care Note Comments: I spoke with Dr. Gee at approximately 0 430 and he advised patient just got out of hospital and I advised him of nausea vomiting medications like Amaryl and hydroxychloroquine. We will attempt a KUB and continue with Zofran. Also patient's KUB was attempted but patient was too morbidly obese for filming. See pharmaceutical development technician's notes about this. Dr. Gee was called about this. At 0 537 and he advises to send patient back to assisted. Discharge - Discharge Clinical Impression: Chronic pain syndrome, Morbid obesity Vomiting Qualifiers: Vomiting type: unspecified Vomiting Intractability: non-intractable Nausea presence: with nausea Qualified Code(s): R11.2 - Nausea with vomiting, unspecified Abdominal pain Qualifiers: Abdominal location: epigastric Qualified Code(s): R10.13 - Epigastric pain Condition: Stable Disposition: HOME, SELF-CARE Additional Instructions: Transferred back to assisted return to ER as needed take Compazine as needed for nausea and vomiting and may consider holding Amaryl and hydroxychloroquine iron because of nausea vomiting tendencies and side effects. This is up to Dr. Gee for the cessation of these medications. Prescriptions: Prochlorperazine Maleate [Compazine 10 mg Tablet] 10 mg PO BID #10 tablet Referrals: NAYLA GEE MD [Primary Care Provider] - Follow up as needed
[2020-07-19 06:10] LABS: HEMATOCRIT 43.7 % (36.0-47.0); MEAN CORPUSCULAR HEMOGLOBIN 30.9 pg (27.0-33.4); MEAN CORPUSCULAR HGB CONC 34.3 g/dL (32.0-36.0); MEAN CORPUSCULAR VOLUME 90 fl (80-97); PLATELET COUNT 271 10^3/uL (150-450); RED BLOOD COUNT 4.86 10^6/uL (3.72-5.28); RED CELL DISTRIBUTION WIDTH 15.4 % (11.5-14.0); WHITE BLOOD COUNT 12.3 10^3/uL (4.0-10.5)
[2020-07-19 06:39] LABS: ABSOLUTE LYMPHOCYTES# (MANUAL) 0.7 10^3/uL (0.5-4.7); ABSOLUTE MONOCYTES # (MANUAL) 0.2 10^3/uL (0.1-1.4); BASOPHILS % (MANUAL) 0 % (0-2); EOSINOPHILS % (MANUAL) 0 % (0-6); LYMPHOCYTES % (MANUAL) 6 % (13-45); MONOCYTES % (MANUAL) 2 % (3-13); SEGMENTED NEUTROPHILS % (MAN) 92 % (42-78); TOTAL CELLS COUNTED 100
[2020-07-19 06:40] LABS: ANISOCYTOSIS SLIGHT; OVALOCYTES SLIGHT; PLATELET COMMENT ADEQUATE; POLYCHROMASIA SLIGHT; SCHISTOCYTES SLIGHT; TOXIC GRANULATION 1+
[2020-07-19 09:10] VITALS: BP 184/82
== END 2020-07-19 09:09 | disposition home or self-care (01) ==
LOC: ER 03:31
DX: R11.2 Nausea with vomiting, unspecified (principal); M06.9 Rheumatoid arthritis, unspecified; K21.9 Gastro-esophageal reflux disease without esophagitis; G89.4 Chronic pain syndrome; E11.51 Type 2 diabetes mellitus with diabetic peripheral angiopathy without gangrene; R10.13 Epigastric pain; D72.829 Elevated white blood cell count, unspecified; R53.1 Weakness; E03.9 Hypothyroidism, unspecified; E66.01 Morbid (severe) obesity due to excess calories; Z68.45 Body mass index [BMI] 70 or greater, adult; I11.0 Hypertensive heart disease with heart failure; I50.9 Heart failure, unspecified; J44.9 Chronic obstructive pulmonary disease, unspecified; Z90.49 Acquired absence of other specified parts of digestive tract; Z79.899 Other long term (current) drug therapy; Z79.4 Long term (current) use of insulin; Z79.891 Long term (current) use of opiate analgesic; Z87.19 Personal history of other diseases of the digestive system; Z98.84 Bariatric surgery status; Z74.01 Bed confinement status; Z87.892 Personal history of anaphylaxis; Z88.0 Allergy status to penicillin; Z88.1 Allergy status to other antibiotic agents
CPT/HCPCS: 36415; 85025; 99285

== ENCOUNTER 2020-07-21 20:04 | Inpatient (IN) | payer MEDICARE, MEDICAID ==
--- NOTE | 2020-07-21 20:45 | ER Document Report ---
ED General - General Chief Complaint: Altered Mental Status Stated Complaint: ALTERED MENTAL STATUS Time Seen by Provider: 07/21/20 20:05 Notes: Patient is a 70-year-old female that comes emergency department by EMS from from your long-term care facility for chief complaint of 1 day of confusion and altered mental status. Patient has not had a fever, patient is still been responsive, patient is at least intermittently oriented, per report I am not clearly given how patient's mental status is worse than usual. Patient has not had any vomiting, she has no complaints other than the bed being uncomfortable. Patient is oriented to place, year, although she is asking what day and what time it is, she became upset and stated she missed her "group meeting". Past medical history includes morbid obesity, CHF, type 2 diabetes, rheumatoid ar thritis, gastric bypass, and medications including baclofen and oxycodone but per EMS patient has not received opiates within the past day. TRAVEL OUTSIDE OF THE [place] IN LAST 30 DAYS: No - Related Data Allergies/Adverse Reactions: ciprofloxacin [From Cipro] Allergy (Severe, Verified 07/19/20 03:58) Anaphylaxis Penicillins Allergy (Severe, Verified 07/19/20 03:58) Anaphylaxis adhesive tape [Adhesive Tape] Adverse Reaction (Severe, Verified 07/19/20 03:58) BLISTERS, SKIN BECOMES RAW indomethacin [From Indocin] Adverse Reaction (Severe, Verified 07/19/20 03:58) CAUSES SWELLING AND INFLAMMATION meperidine HCl [From Demerol] Adverse Reaction (Severe, Verified 07/19/20 03:58) Hallucinations Past Medical History - General Information source: Patient, Emergency Med Personnel - Social History Smoking Status: Never Smoker Chew tobacco use (# tins/day): No Frequency of alcohol use: None Drug Abuse: None Lives with: Long Term Family History: Reviewed & Not Pertinent, Hypertension - Past Medical History Cardiac Medical History: Reports: Hx Congestive Heart Failure, Hx Hypercholesterolemia, Hx Hypertension, Hx Peripheral Vascular Disease, Hx Heart Murmur Denies: Hx Heart Attack Pulmonary Medical History: Reports: Hx Asthma - severe,neb,inhaler, Hx Bronchitis, Hx COPD Denies: Hx Pneumonia, Hx Respiratory Failure, Hx Sleep Apnea, Hx Tuberculosis Neurological Medical History: Denies: Hx Cerebrovascular Accident, Hx Seizures, Hx Parkinson's Disease Endocrine Medical History: Reports: Hx Diabetes Mellitus Type 2, Hx Hypothyroidism Renal/ Medical History: Reports: Hx Ovarian Cysts. Denies: Hx Peritoneal Dialysis GI Medical History: Reports: Hx Gastroesophageal Reflux Disease, Hx Hiatal Hernia, Hx Irritable Bowel. Denies: Hx Pancreatitis Musculoskeletal Medical History: Reports Hx Arthritis - RA, Reports Hx Fibromyalgia, Denies Hx Systemic Lupus Erythematosus Psychiatric Medical History: Reports: Hx Depression Traumatic Medical History: Reports: Hx Fractures Past Surgical History: Reports: Hx Cholecystectomy, Hx Gastric Bypass Surgery - Lap Band, post in stomach for lap band , Hx Hysterectomy, Hx Orthopedic Surgery - right hip x3, left knee x1, Other - LAP-BAND procedures - Immunizations Hx Diphtheria, Pertussis, Tetanus Vaccination: Yes Hx Pneumococcal Vaccination: 10/11/12 Review of Systems - Review of Systems Constitutional: See HPI EENT: No symptoms reported Cardiovascular: No symptoms reported Respiratory: No symptoms reported Gastrointestinal: No symptoms reported Genitourinary: No symptoms reported Female Genitourinary: No symptoms reported Musculoskeletal: No symptoms reported Skin: No symptoms reported Hematologic/Lymphatic: No symptoms reported Neurological/Psychological: See HPI Physical Exam - Vital signs Vitals: Temp Resp Pulse Ox 99.6 F 17 96 07/21/20 20:02 07/21/20 20:02 07/21/20 20:02 - Notes Notes: GENERAL: Patient sleeping but easily aroused. She is cooperative and does not appear to be in distress. Patient is very obese. HEAD: Normocephalic, atraumatic. EYES: Pupils equal, round, and reactive to light. Extraocular movements intact. ENT: Oral mucosa very dry, tongue midline. Oropharynx unremarkable. Airway patent. NECK: Full range of motion. Supple. Trachea midline. No lymphadenopathy. LUNGS: Clear to auscultation bilaterally, no wheezes, rales, or rhonchi. No respiratory distress. Non-tender chest wall. HEART: Regular rate and rhythm. No murmur ABDOMEN: Soft, non-tender. Non-distended. Suprapubic catheter in place with surrounding irritation, sediment in the tubing, but no bleeding, drainage, or overt cellulitis is noted. EXTREMITIES: Wrapped dressings over both distal lower extremities. Otherwise unremarkable. BACK: no cervical, thoracic, lumbar midline tenderness. NEUROLOGICAL: Alert and oriented to person and place but not to events. Normal speech. Cranial nerves II through XII grossly intact. PSYCH: Normal affect, normal mood. SKIN: Warm, dry, normal turgor. No rashes or lesions noted. Course - Re-evaluation Re-evalutation: Patient is oriented to person, place, but not to events. Reportedly this is below her baseline and she has been altered for the past day per EMS report from nursing staff. Patient is nontoxic in appearance, cooperative, vital signs are unremarkable. Suprapubic catheter appears to be very old, there is sediment in the tubing and dried skin and irritation buildup around the tubing. There is also no port in in order to obtain a urine sample we had to replace this, this was done without difficulty. CBC shows leukocytosis at 17,000 with elevation of neutrophils but no bandemia. Chemistry nonspecific. Troponin is not elevated. Chest x-ray without acute findings. EKG nonspecific. Because of reported altered mental status we attempted to perform a CAT scan of the head but patient is too large to have a CAT scan performed per in tube conversion technician who attempted to do the test. I did review previous cultures. This shows Pseudomonas multiple times recently, also recently E. coli. Unfortunately patient is also allergic to fluoroqui nolones. Started patient on cefepime at this time for multiple coverages. 07/22/20 00:10 I called and discussed with Dr. Brown, patient's primary provider. Discussed the situation with her altered mental status, leukocytosis, urinary tract infection, recent cultures, allergies. Patient accepted to medical floor full admission. - Vital Signs Vital signs: Temp Pulse Resp BP Pulse Ox 99.6 F 16 151/59 H 99 07/21/20 20:02 07/21/20 22:21 07/21/20 22:21 07/21/20 22:21 - Laboratory Result Diagrams: 07/21/20 21:17 07/21/20 20:17 Laboratory results interpreted by me: 07/21/20 07/21/20 07/21/20 20:17 21:17 21:17 WBC 17.2 H RDW 15.6 H Lymph % (Auto) 11.8 L Absolute Neuts (auto) 14.1 H Seg Neutrophils % 82.0 H VBG pH 7.44 H Sodium 135.3 L Potassium 5.1 H BUN 27 H Glucose 186 H Calcium 8.3 L Total Protein 5.8 L Albumin 3.1 L Urine Protein Urine Blood Ur Leukocyte Esterase 07/21/20 21:55 WBC RDW Lymph % (Auto) Absolute Neuts (auto) Seg Neutrophils % VBG pH Sodium Potassium BUN Glucose Calcium Total Protein Albumin Urine Protein 100 H Urine Blood MODERATE H Ur Leukocyte Esterase LARGE H Discharge - Discharge Clinical Impression: Altered mental status Qualifiers: Altered mental status type: unspecified Qualified Code(s): R41.82 - Altered mental status, unspecified Urinary tract infection Qualifiers: Urinary tract infection type: site unspecified Hematuria presence: without hematuria Qualified Code(s): N39.0 - Urinary tract infection, site not specified Leukocytosis Qualifiers: Leukocytosis type: unspecified Qualified Code(s): D72.829 - Elevated white blood cell count, unspecified Condition: Stable Disposition: ADMITTED INPATIENT Admitting Provider: Stephanie Unit Admitted: Medical Floor
[2020-07-21 21:04] LABS: ALBUMIN 3.1 g/dL (3.5-5.0); ALKALINE PHOSPHATASE 62 U/L (38-126); ANION GAP 7 (5-19); ASPARTATE AMINO TRANSFERASE 17 U/L (14-36); BILIRUBIN,DIRECT 0.4 mg/dL (0.0-0.4); BILIRUBIN,TOTAL 0.4 mg/dL (0.2-1.3); BLOOD UREA NITROGEN 27 mg/dL (7-20); CALCIUM 8.3 mg/dL (8.4-10.2); CARBON DIOXIDE 29 mmol/L (22-30); CHLORIDE 99 mmol/L (98-107); GLUCOSE 186 mg/dL (75-110); POTASSIUM 5.1 mmol/L (3.6-5.0); TOTAL PROTEIN 5.8 g/dL (6.3-8.2)
[2020-07-21 21:28] LABS: VENOUS BLOOD BASE EXCESS 5.3 mmol/L; VENOUS BLOOD HCO3 30.4 mmol/L (20-32); VENOUS BLOOD PCO2 46.3 mmHg (35-63); VENOUS BLOOD PH 7.44 (7.30-7.42)
[2020-07-21] MEDS ORDERED: NORMAL SALINE 1000 ML 1,000 ML IV ONE (21:31)
[2020-07-21 21:35] LABS: ABSOLUTE BASOPHILS # (AUTO) 0.1 10^3/uL (0.0-0.2); ABSOLUTE NEUT (AUTO) 14.1 10^3/uL (1.7-8.2); BASOPHILS % (AUTO) 0.5 % (0-2); EOSINOPHILS % (AUTO) 0.1 % (0-6); HEMATOCRIT 37.3 % (36.0-47.0); LYMPHOCYTES % (AUTO) 11.8 % (13-45); MEAN CORPUSCULAR HEMOGLOBIN 29.9 pg (27.0-33.4); MEAN CORPUSCULAR HGB CONC 33.4 g/dL (32.0-36.0); MEAN CORPUSCULAR VOLUME 90 fl (80-97); MONOCYTES % (AUTO) 5.6 % (3-13); PLATELET COUNT 207 10^3/uL (150-450); RED BLOOD COUNT 4.16 10^6/uL (3.72-5.28); RED CELL DISTRIBUTION WIDTH 15.6 % (11.5-14.0); TOTAL CELLS COUNTED % (AUTO) 100 %; WHITE BLOOD COUNT 17.2 10^3/uL (4.0-10.5)
[2020-07-21 21:38] LABS: HEMOGLOBIN 12.5 g/dL (12.0-15.5)
[2020-07-21 22:57] LABS: APPEARANCE,URINE CLOUDY; BILIRUBIN,URINE NEGATIVE (NEGATIVE); COLOR,URINE YELLOW; GLUCOSE, URINE NEGATIVE (NEGATIVE); KETONES,URINE NEGATIVE (NEGATIVE); LEUKOCYTE ESTERASE,URINE LARGE (NEGATIVE); NITRITE,URINE NEGATIVE (NEGATIVE); PROTEIN,URINE 100 mg/dL (NEGATIVE); URINE SPECIFIC GRAVITY 1.012; UROBILINOGEN,URINE NEGATIVE mg/dL (<2.0)
--- NOTE | 2020-07-21 23:12 | EKG REPORT ---
SEVERITY:- ABNORMAL ECG - SINUS RHYTHM FIRST DEGREE AV BLOCK LEFT AXIS DEVIATION ABNRM R PROG, CONSIDER ASMI OR LEAD PLACEMENT : Confirmed by: Erica Farris MD 21-Jul-2020 23:11:58
--- NOTE | 2020-07-21 23:13 | RADIOLOGY REPORT (SQ) ---
EXAM DESCRIPTION: X-RAY CHEST- One View CLINICAL HISTORY: Confusion COMPARISON: July 06, 2020 TECHNIQUE: Single view of the chest. FINDINGS: There are overlying EKG leads. There are low lung volumes with compressive changes. There is suggestion of additional patchy opacities overlie the left lung base with possible blunting of the left costophrenic angle. The pulmonary vascularity is prominent in appearance. The cardiomediastinal silhouette is persistently enlarged, similar to prior study. Osseous structures are stable. IMPRESSION: 1. Low lung volumes with compressive changes. The possibility of a left basilar opacity and small left basilar effusion are not excluded. Clinical correlation is advised. 2. Persistent enlargement of the cardiac silhouette.
[2020-07-21] MEDS ORDERED: CEFEPIME 2 GM/D5W RTU 2 GM/50 ML RTUPB IV ONE (23:17)
[2020-07-22] MEDS ORDERED: ENOXAPARIN SODIUM INJ 40 MG/0.4 ML DISP.SYRIN SUBCUT ONE (04:45)
[2020-07-22] MEDS ORDERED: AZTREONAM INJ 1 GM VIAL IV SCH (04:45)
[2020-07-22] MEDS ORDERED: AZTREONAM INJ 1 GM VIAL ONE (05:04)
[2020-07-22] MEDS: RINGERS SOLUTION,LACTATED 1,000 ML IV PRN ×2 (05:28→19:51)
[2020-07-22] MEDS: AZTREONAM 1 GM in DEXTROSE 5%-WATER 50 ML IV SCH ×3 (05:28→22:05)
[2020-07-22 06:12] LABS: FREE T4 (FREE THYROXINE) 1.33 ng/dL (0.78-2.19)
[2020-07-22 06:26] LABS: THYROID STIMULATING HORMONE 3.49 uIU/mL (0.47-4.68)
--- NOTE | 2020-07-22 17:55 | PDOC H&P ---
History of Present Illness Admission Date/PCP: 07/22/20 00:15 NAYLA GEE MD History of Present Illness: NETTA RICO is a 70 year old female, She has multiple comorbid conditions, she was just discharged from this hospital on July 17, 2020, she is a resident of long-term care facility, [facility],She was transferred from the intermediate home to the emergency room for evaluation of persistent stuporous state.I saw patient yesterday in the senior care at that time she was extremely stuporous, she did not respond to verbal command but she grimaces on applying sternal pressure, we did routine blood work including hemogram and comprehensive metabolic panel, the electrolytes were normal but she was found to have leukocytosis I prescribed for patient to receive Rocephin intramuscularly or intravenously but because of patient persistent stuporous state the senior care staff and the family felt patient needed to be transferred back to the hospital, this is a second ED referral since discharge on 07/27/2020. She has a history of recurrent urinary tract infection partly because she has chronic indwelling suprapubic catheter, diabetes ,morbidly obese ,sedentary Lifestyle all there conditions places her at increased risk of recurrent UTI. In the emergency room she was found to have leukocytosis with UTI, she had a long list of allergy, last time she was admitted she was treated with aztreonam Past Medical History Cardiac Medical History: Reports: Hyperlipidema, Hypertension, Peripheral Vascular Disease, Heart Murmur Pulmonary Medical History: Reports: Asthma - severe,neb,inhaler, Bronchitis, Chronic Obstructive Pulmonary Disease (COPD) Endocrine Medical History: Reports: Diabetes Mellitus Type 2, Hypothyroidism GI Medical History: Reports: Gastroesophageal Reflux Disease, Hiatal Hernia Musculoskeltal Medical History: Reports: Arthritis - RA, Fibromyalgia Psychiatric Medical History: Reports: Depression Past Surgical History Past Surgical History: Reports: Cholecystectomy, Gastric Bypass Surgery - Lap Band, post in stomach for lap band , Hysterectomy, Orthopedic Surgery - right hip x3, left knee x1, Other - LAP-BAND procedures Social History Lives with: [facility] Smoking Status: Former Smoker Electronic Cigarette use?: No Frequency of Alcohol Use: None Hx Recreational Drug Use: No Drugs: None Hx Prescription Drug Abuse: No Family History Family History: Reviewed & Not Pertinent, Hypertension Parental Family History Reviewed: Yes Children Family History Reviewed: Yes Sibling(s) Family History Reviewed.: Yes Medication/Allergy Home Medications: Allopurinol [Zyloprim 300 mg Tablet] 300 mg PO DAILY 11/12/19 Amlodipine Besylate [Norvasc 5 mg Tablet] 5 mg PO DAILY 11/12/19 Baclofen [Baclofen 10 mg Tablet] 10 mg PO Q6 11/12/19 Benzocaine/Menthol [Chloraseptic Sore Throat Lozenge] 1 lozenge PO Q1HP PRN 11/12/19 Bisacodyl [Dulcolax 5 mg Tablet] 5 mg PO DAILYP PRN 11/12/19 Budesonide/Formoterol Fumarate [Symbicort HFA 160-4.5 mcg Inhaler 6 gm] 2 puff IH BID 11/12/19 Calcium Carbonate [Calcium] 600 mg PO DAILY 11/12/19 Carboxymethylcellulose Sodium [Refresh Celluvisc Drops] 1 drop OU QHS 11/12/19 Carboxymethylcellulose Sodium [Refresh Tears] 1 drop OU QIDP PRN 11/12/19 Cetirizine HCl [Zyrtec 10 mg Tablet] 10 mg PO DAILY 11/12/19 Cholecalciferol (Vitamin D3) [Vitamin D3 1000 Unit Tablet] 4,000 unit PO DAILY 11/12/19 Cranberry Fruit Extract [Cranberry 250 mg Capsule] 250 mg PO QAM 11/12/19 Cyclosporine 0.05% Oph Emulsio [Restasis 0.05% Oph Emulsion Pf 0.4 ml] 1 drop OU Q12 11/12/19 Furosemide [Lasix 40 mg Tablet] 40 mg PO BID 11/12/19 Glimepiride [Amaryl] 2 mg PO DAILY 11/12/19 Hydroxychloroquine Sulfate [Plaquenil 200 mg Tablet] 200 mg PO Q12 11/12/19 Insulin Glargine,Hum.rec.anlog [Lantus Insulin 100 Unit/1 ml 10 ml] 5 units SQ QHS 11/12/19 Levothyroxine Sodium [Synthroid 0.088 mg Tablet] 0.088 mg PO Q6AM 11/12/19 Menthol/Camphor [Sarna Original 0.5%-0.5% Lotn] 1 applic TOP QIDP PRN 11/12/19 Metoprolol Succinate [Toprol Xl 25 mg Tab.sr] 25 mg PO QHS 11/12/19 Mineral Oil/Hydrophil Petrolat [Aquaphor Healing Ointment] 1 applic TOP BID 11/12/19 Mirabegron [Myrbetriq] 25 mg PO QAM 11/12/19 Montelukast Sodium [Singulair 10 mg Tablet] 10 mg PO QHS 11/12/19 Naloxegol Oxalate [Movantik 25 mg Tablet] 25 mg PO QAM 11/12/19 Ondansetron [Zofran Odt 4 mg Tablet] 4 mg PO Q6HP PRN 11/12/19 Oxycodone HCl [Oxy-Ir 5 mg Tablet] 10 mg PO BID 11/12/19 Pantoprazole Sodium [Protonix [address] Tablet] 40 mg PO Q12 11/12/19 Pimecrolimus 1 applic TOP BID 11/12/19 Polyethylene Glycol 3350 [Miralax Powder 17 gm/Packet] 1 packet PO BID 11/12/19 Polyethylene Glycol 3350 [Miralax Powder 17 gm/Packet] 1 packet PO DAILYP PRN 11/12/19 Polyvinyl Alcohol [Liquitears 1.4% Ophth Soln 15 ml] 1 drop OU QIDP PRN 11/12/19 Potassium Chloride [Klor-Con 10 Meq Tablet ER] 10 meq PO Q12 11/12/19 Pregabalin 150 mg PO Q8 11/12/19 Sennosides/Docusate Sodium [Senna Plus 8.6-50 mg Tablet] 1 tab PO BID 11/12/19 Sodium Chloride [Citrus Nasal [place] 44 ml Bottle] 1 spray NASL DAILYP PRN 11/12/19 Fluconazole [Diflucan] 150 mg PO FR@2200 07/06/20 Menthol [Biofreeze] 1 applic TP Q6HP PRN 07/06/20 Ceftriaxone Sodium [Rocephin Inj 1000 mg Vial] 1 gm IM DAILY 07/22/20 Insulin Lispro [Humalog Insulin 100 Unit/1 ml 3 ml Vial] 0 unit SUBCUT .SLD SCALE 07/22/20 Oxycodone HCl [Oxy-Ir 5 mg Tablet] 20 mg PO Q8 07/22/20 Allergies/Adverse Reactions: ciprofloxacin [From Cipro] Allergy (Severe, Verified 07/19/20 03:58) Anaphylaxis Penicillins Allergy (Severe, Verified 07/19/20 03:58) Anaphylaxis adhesive tape [Adhesive Tape] Adverse Reaction (Severe, Verified 07/19/20 03:58) BLISTERS, SKIN BECOMES RAW indomethacin [From Indocin] Adverse Reaction (Severe, Verified 07/19/20 03:58) CAUSES SWELLING AND INFLAMMATION meperidine HCl [From Demerol] Adverse Reaction (Severe, Verified 07/19/20 03:58) Hallucinations Review of Systems Constitutional: ABSENT: chills, fever(s), headache(s), weight gain, weight loss Eyes: ABSENT: visual disturbances Ears: ABSENT: hearing changes Cardiovascular: ABSENT: chest pain, dyspnea on exertion, edema, orthropnea, palpitations Respiratory: ABSENT: cough, hemoptysis Gastrointestinal: PRESENT: abdominal pain. ABSENT: constipation, diarrhea, hematemesis, hematochezia, nausea, vomiting Musculoskeletal: ABSENT: joint swelling Integumentary: ABSENT: rash, wounds Neurological: PRESENT: other - altered mental status Endocrine: ABSENT: cold intolerance, heat intolerance, menstrual abnormalities, polydipsia, polyuria Hematologic/Lymphatic: ABSENT: easy bleeding, easy bruising, lymphadenopathy Physical Exam Vital Signs: Temp Pulse Resp BP Pulse Ox 97.6 F 92 16 141/76 H 98 07/22/20 08:14 07/22/20 08:14 07/22/20 08:14 07/22/20 08:14 07/22/20 08:14 Intake & Output 07/21/20 07/22/20 07/23/20 06:59 06:59 06:59 Intake Total 1480 744 Output Total 450 Balance 1030 744 Weight 166.3 kg General appearance: PRESENT: no acute distress, morbidly obese Eye exam: PRESENT: PERRLA Respiratory exam: PRESENT: clear to auscultation pennie Cardiovascular exam: PRESENT: +S1, +S2 GI/Abdominal exam: PRESENT: other - obese Neurological exam: PRESENT: alert Results Laboratory Results: 07/21/20 21:17 07/21/20 20:17 07/21/20 07/21/20 07/21/20 20:17 20:17 20:17 WBC Cancelled RBC Cancelled Hgb Cancelled Hct Cancelled MCV Cancelled MCH Cancelled MCHC Cancelled RDW Cancelled Plt Count Cancelled Seg Neutrophils % Cancelled VBG pH VBG pCO2 VBG HCO3 VBG Base Excess Sodium 135.3 L Potassium 5.1 H Chloride 99 Carbon Dioxide 29 Anion Gap 7 BUN 27 H Creatinine 0.88 Est GFR ( Amer) > 60 Glucose 186 H Calcium 8.3 L Total Bilirubin 0.4 AST 17 Alkaline Phosphatase 62 Total Protein 5.8 L Albumin 3.1 L TSH 3.49 Free T4 1.33 Urine Color Urine Appearance Urine pH Ur Specific [place] Urine Protein Urine Glucose (UA) Urine Ketones Urine Blood Urine Nitrite Ur Leukocyte Esterase Urine WBC (Auto) Urine RBC (Auto) 07/21/20 07/21/20 07/21/20 21:17 21:17 21:55 WBC 17.2 H RBC 4.16 Hgb 12.5 D Hct 37.3 MCV 90 MCH 29.9 MCHC 33.4 RDW 15.6 H Plt Count 207 Seg Neutrophils % 82.0 H VBG pH 7.44 H VBG pCO2 46.3 VBG HCO3 30.4 VBG Base Excess 5.3 Sodium Potassium Chloride Carbon Dioxide Anion Gap BUN Creatinine Est GFR ( Amer) Glucose Calcium Total Bilirubin AST Alkaline Phosphatase Total Protein Albumin TSH Free T4 Urine Color YELLOW Urine Appearance CLOUDY Urine pH 8.0 Ur Specific [place] 1.012 Urine Protein 100 H Urine Glucose (UA) NEGATIVE Urine Ketones NEGATIVE Urine Blood MODERATE H Urine Nitrite NEGATIVE Ur Leukocyte Esterase LARGE H Urine WBC (Auto) >182 Urine RBC (Auto) 72 07/21/20 21:17 Troponin I < 0.012 Impressions: Chest X-Ray 07/21/20 20:40 IMPRESSION: 1. Low lung volumes with compressive changes. The possibility of a left basilar opacity and small left basilar effusion are not excluded. Clinical correlation is advised. 2. Persistent enlargement of the cardiac silhouette. Assessment & Plan - Diagnosis (1) Urinary tract infection Qualifiers: Urinary tract infection type: site unspecified Hematuria presence: without hematuria Qualified Code(s): N39.0 - Urinary tract infection, site not specified Is this a current diagnosis for this admission?: Yes Plan: She has UTI patient was treated with aztreonam previously, she will be treated with that again, I had a long discussion about her CODE STATUS, she wants to remain a full code despite multiple comorbid conditions (2) Metabolic encephalopathy Is this a current diagnosis for this admission?: Yes - Time Time Spent: Greater than 70 Minutes Anticipated Discharge Disposition: [facility] Facility Anticipated Discharge Timeframe: within 72 hours
[2020-07-22] MEDS ORDERED: SODIUM CHLORIDE NASAL SPRAY 44 ML NASL PRN (17:58)
[2020-07-22] MEDS ORDERED: BISACODYL 5 MG TABEC PO PRN (17:58)
[2020-07-22] MEDS ORDERED: CRANBERRY FRUIT EXTRACT 250 MG PO SCH (18:00)
[2020-07-22] MEDS ORDERED: (PENDING PHARMACY ID) (Naloxegol Oxalate 25 MG) PO SCH (18:00)
[2020-07-22] MEDS: OXYCODONE HCL IR 5 MG TABLET PO SCH ×3 (19:14→22:05)
[2020-07-22] MEDS: AMLODIPINE BESYLATE 5 MG TABLET PO SCH (19:51)
[2020-07-22] MEDS: LEVOTHYROXINE SODIUM 0.088 MG TABLET PO SCH (19:51)
[2020-07-22] MEDS: CETIRIZINE 10 MG TABLET PO SCH (19:51)
[2020-07-22] MEDS: CHOLECALCIFEROL (D3) 1,000 UNIT (25 MCG) TABLET PO SCH (19:51)
[2020-07-22] MEDS: ALLOPURINOL 300 MG TABLET PO SCH (19:57)
[2020-07-22] MEDS: METOPROLOL SUCCINATE 25 MG TAB.SR.24H PO SCH (22:04)
[2020-07-23] MEDS: OXYCODONE HCL IR 5 MG TABLET PO SCH ×5 (05:12→22:04)
[2020-07-23] MEDS: AZTREONAM 1 GM in DEXTROSE 5%-WATER 50 ML IV SCH ×3 (05:12→22:04)
[2020-07-23] MEDS: LEVOTHYROXINE SODIUM 0.088 MG TABLET PO SCH (05:14)
[2020-07-23 08:23] LABS: ALBUMIN 2.9 g/dL (3.5-5.0); ALKALINE PHOSPHATASE 75 U/L (38-126); ANION GAP 7 (5-19); ASPARTATE AMINO TRANSFERASE 18 U/L (14-36); BILIRUBIN,DIRECT 0.4 mg/dL (0.0-0.4); BILIRUBIN,TOTAL 0.6 mg/dL (0.2-1.3); BLOOD UREA NITROGEN 12 mg/dL (7-20); CALCIUM 8.3 mg/dL (8.4-10.2); CARBON DIOXIDE 27 mmol/L (22-30); CHLORIDE 100 mmol/L (98-107); GLUCOSE 183 mg/dL (75-110); POTASSIUM 4.1 mmol/L (3.6-5.0); TOTAL PROTEIN 5.6 g/dL (6.3-8.2)
[2020-07-23 08:41] LABS: ABSOLUTE EOSINOPHILS # (AUTO) 0.2 10^3/uL (0.0-0.6); ABSOLUTE LYMPHOCYTES (AUTO) 1.7 10^3/uL (0.5-4.7); ABSOLUTE MONOCYTES (AUTO) 0.7 10^3/uL (0.1-1.4); ABSOLUTE NEUT (AUTO) 5.2 10^3/uL (1.7-8.2); BASOPHILS % (AUTO) 0.4 % (0-2); HEMATOCRIT 33.8 % (36.0-47.0); HEMOGLOBIN 11.5 g/dL (12.0-15.5); LYMPHOCYTES % (AUTO) 21.6 % (13-45); MEAN CORPUSCULAR HEMOGLOBIN 30.5 pg (27.0-33.4); MEAN CORPUSCULAR HGB CONC 33.9 g/dL (32.0-36.0); MEAN CORPUSCULAR VOLUME 90 fl (80-97); MONOCYTES % (AUTO) 9.2 % (3-13); PLATELET COUNT 189 10^3/uL (150-450); RED BLOOD COUNT 3.76 10^6/uL (3.72-5.28); RED CELL DISTRIBUTION WIDTH 15.4 % (11.5-14.0); SEGMENTED NEUTROPHILS % (AUTO) 65.8 % (42-78); TOTAL CELLS COUNTED % (AUTO) 100 %; WHITE BLOOD COUNT 7.9 10^3/uL (4.0-10.5)
[2020-07-23] MEDS: ALLOPURINOL 300 MG TABLET PO SCH (09:28)
[2020-07-23] MEDS: GLIMEPIRIDE 1 MG TABLET PO SCH (09:28)
[2020-07-23] MEDS: CETIRIZINE 10 MG TABLET PO SCH (09:29)
[2020-07-23] MEDS: CHOLECALCIFEROL (D3) 1,000 UNIT (25 MCG) TABLET PO SCH (09:29)
[2020-07-23] MEDS: AMLODIPINE BESYLATE 5 MG TABLET PO SCH (09:29)
[2020-07-23] MEDS: ENOXAPARIN SODIUM INJ 40 MG/0.4 ML DISP.SYRIN SUBCUT SCH (09:31)
[2020-07-23] MEDS: RINGERS SOLUTION,LACTATED 1,000 ML IV PRN (11:56)
[2020-07-23] MEDS: CYCLOSPORINE 0.05% OPH EMULSIO 0.4 ML DROPERETTE OU SCH ×2 (17:37→22:05)
--- NOTE | 2020-07-23 20:59 | PDOC PROGRESS REPORT ---
Subjective Progress Note for:: 07/23/20 Subjective:: Patient seen by the bedside, she complains of nausea no vomiting Reason For Visit: UTI, AMS Physical Exam Vital Signs: Temp Pulse Resp BP Pulse Ox 98.0 F 94 19 170/68 H 99 07/23/20 16:00 07/23/20 16:00 07/23/20 16:00 07/23/20 16:00 07/23/20 16:00 Intake & Output 07/22/20 07/23/20 07/24/20 06:59 06:59 06:59 Intake Total 1480 3614 496 Output Total 450 2955 2100 Balance 1030 659 -1604 Weight 166.3 kg 154 kg General appearance: PRESENT: no acute distress Eye exam: PRESENT: PERRLA Respiratory exam: PRESENT: clear to auscultation pennie Cardiovascular exam: PRESENT: +S1, +S2 GI/Abdominal exam: PRESENT: soft Neurological exam: PRESENT: alert Results Laboratory Results: 07/23/20 06:30 07/23/20 06:30 07/23/20 07/23/20 06:30 06:30 WBC 7.9 RBC 3.76 Hgb 11.5 L Hct 33.8 L MCV 90 MCH 30.5 MCHC 33.9 RDW 15.4 H Plt Count 189 Seg Neutrophils % 65.8 Sodium 134.3 L Potassium 4.1 Chloride 100 Carbon Dioxide 27 Anion Gap 7 BUN 12 Creatinine 0.49 L Est GFR ( Amer) > 60 Glucose 183 H Calcium 8.3 L Total Bilirubin 0.6 AST 18 Alkaline Phosphatase 75 Total Protein 5.6 L Albumin 2.9 L 07/21/20 20:17 Blood Blood Culture (PCR) - Final Staphylococcus Species 07/21/20 21:17 Troponin I < 0.012 Impressions: Chest X-Ray 07/21/20 20:40 IMPRESSION: 1. Low lung volumes with compressive changes. The possibility of a left basilar opacity and small left basilar effusion are not excluded. Clinical correlation is advised. 2. Persistent enlargement of the cardiac silhouette. Assessment & Plan - Diagnosis (1) Urinary tract infection Qualifiers: Urinary tract infection type: site unspecified Hematuria presence: without hematuria Qualified Code(s): N39.0 - Urinary tract infection, site not specified Is this a current diagnosis for this admission?: Yes Plan: Continue IV antibiotic (2) Metabolic encephalopathy Is this a current diagnosis for this admission?: Yes - Time Time Spent with patient: 25-34 minutes Level of Care: IMCU Medications reviewed and adjusted accordingly: Yes Anticipated discharge: Home
[2020-07-23] MEDS: METOPROLOL SUCCINATE 25 MG TAB.SR.24H PO SCH (22:04)
[2020-07-23] MEDS: CARBOXYMETHYLCELLULOSE SOD 0.5% 0.4 ML DROPERETTE OU PRN (22:05)
[2020-07-24] MEDS: RINGERS SOLUTION,LACTATED 1,000 ML IV PRN (02:00)
[2020-07-24] MEDS: LEVOTHYROXINE SODIUM 0.088 MG TABLET PO SCH (06:00)
[2020-07-24] MEDS: OXYCODONE HCL IR 5 MG TABLET PO SCH ×5 (06:01→21:56)
[2020-07-24] MEDS: AZTREONAM 1 GM in DEXTROSE 5%-WATER 50 ML IV SCH ×3 (06:02→21:56)
[2020-07-24] MEDS: ENOXAPARIN SODIUM INJ 40 MG/0.4 ML DISP.SYRIN SUBCUT SCH (10:56)
[2020-07-24] MEDS: AMLODIPINE BESYLATE 5 MG TABLET PO SCH (11:07)
[2020-07-24] MEDS: GLIMEPIRIDE 1 MG TABLET PO SCH (11:07)
[2020-07-24] MEDS: CETIRIZINE 10 MG TABLET PO SCH (11:07)
[2020-07-24] MEDS: CHOLECALCIFEROL (D3) 1,000 UNIT (25 MCG) TABLET PO SCH (11:07)
[2020-07-24] MEDS: ALLOPURINOL 300 MG TABLET PO SCH (11:08)
[2020-07-24] MEDS: CARBOXYMETHYLCELLULOSE SOD 0.5% 0.4 ML DROPERETTE OU PRN ×2 (11:09→21:57)
[2020-07-24] MEDS: CYCLOSPORINE 0.05% OPH EMULSIO 0.4 ML DROPERETTE OU SCH ×2 (13:39→21:57)
--- NOTE | 2020-07-24 20:09 | PDOC PROGRESS REPORT ---
Subjective Progress Note for:: 07/24/20 Subjective:: Patient seen by the bedside she has polymicrobial UTI Reason For Visit: UTI, AMS Physical Exam Vital Signs: Temp Pulse Resp BP Pulse Ox 98.4 F 86 16 168/72 H 99 07/24/20 17:21 07/24/20 17:21 07/24/20 17:21 07/24/20 17:21 07/24/20 17:21 Intake & Output 07/23/20 07/24/20 07/25/20 06:59 06:59 06:59 Intake Total 3614 1726 1260 Output Total 2955 2925 1400 Balance 659 -1199 -140 Weight 154 kg 156.7 kg General appearance: PRESENT: no acute distress Eye exam: PRESENT: PERRLA Respiratory exam: PRESENT: clear to auscultation pennie Cardiovascular exam: PRESENT: +S1, +S2 GI/Abdominal exam: PRESENT: soft Neurological exam: PRESENT: alert Results Laboratory Results: 07/23/20 06:30 07/23/20 06:30 07/21/20 20:17 Blood Blood Culture (PCR) - Final Staphylococcus Species 07/21/20 20:17 Blood Blood Culture - Final Staphylococcus Haemolyticus 07/21/20 21:17 Troponin I < 0.012 Impressions: Chest X-Ray 07/21/20 20:40 IMPRESSION: 1. Low lung volumes with compressive changes. The possibility of a left basilar opacity and small left basilar effusion are not excluded. Clinical correlation is advised. 2. Persistent enlargement of the cardiac silhouette. Assessment & Plan - Diagnosis (1) Urinary tract infection Qualifiers: Urinary tract infection type: site unspecified Hematuria presence: without hematuria Qualified Code(s): N39.0 - Urinary tract infection, site not specified Is this a current diagnosis for this admission?: Yes Plan: She has polymicrobial UTI (2) Metabolic encephalopathy Is this a current diagnosis for this admission?: Yes - Time Time Spent with patient: 25-34 minutes Level of Care: IMCU Medications reviewed and adjusted accordingly: Yes Anticipated discharge: Home - Inpatient Certification Based on my medical assessment, after consideration of the patient's comorbidities, presenting symptoms, or acuity I expect that the services needed warrant INPATIENT care.: Yes I certify that my determination is in accordance with my understanding of Medicare's requirements for reasonable and necessary INPATIENT services [42 CFR 412.3e].: Yes
[2020-07-24] MEDS: METOPROLOL SUCCINATE 25 MG TAB.SR.24H PO SCH (21:57)
[2020-07-25] MEDS: OXYCODONE HCL IR 5 MG TABLET PO SCH ×5 (05:18→21:04)
[2020-07-25] MEDS: AZTREONAM 1 GM in DEXTROSE 5%-WATER 50 ML IV SCH ×3 (05:18→21:03)
[2020-07-25] MEDS: LEVOTHYROXINE SODIUM 0.088 MG TABLET PO SCH (05:18)
[2020-07-25] MEDS: RINGERS SOLUTION,LACTATED 1,000 ML IV PRN ×2 (05:20→21:05)
[2020-07-25 05:51] LABS: ABSOLUTE EOSINOPHILS # (AUTO) 0.3 10^3/uL (0.0-0.6); ABSOLUTE LYMPHOCYTES (AUTO) 1.4 10^3/uL (0.5-4.7); ABSOLUTE MONOCYTES (AUTO) 0.7 10^3/uL (0.1-1.4); ABSOLUTE NEUT (AUTO) 3.4 10^3/uL (1.7-8.2); BASOPHILS % (AUTO) 0.7 % (0-2); EOSINOPHILS % (AUTO) 4.6 % (0-6); HEMATOCRIT 34.7 % (36.0-47.0); HEMOGLOBIN 12.1 g/dL (12.0-15.5); MEAN CORPUSCULAR HEMOGLOBIN 30.7 pg (27.0-33.4); MEAN CORPUSCULAR HGB CONC 34.9 g/dL (32.0-36.0); MEAN CORPUSCULAR VOLUME 88 fl (80-97); MONOCYTES % (AUTO) 11.5 % (3-13); PLATELET COUNT 196 10^3/uL (150-450); RED BLOOD COUNT 3.94 10^6/uL (3.72-5.28); RED CELL DISTRIBUTION WIDTH 15.2 % (11.5-14.0); SEGMENTED NEUTROPHILS % (AUTO) 59.2 % (42-78); TOTAL CELLS COUNTED % (AUTO) 100 %; WHITE BLOOD COUNT 5.7 10^3/uL (4.0-10.5)
[2020-07-25] MEDS: ENOXAPARIN SODIUM INJ 40 MG/0.4 ML DISP.SYRIN SUBCUT SCH (09:54)
[2020-07-25] MEDS: CETIRIZINE 10 MG TABLET PO SCH (09:55)
[2020-07-25] MEDS: AMLODIPINE BESYLATE 5 MG TABLET PO SCH (09:55)
[2020-07-25] MEDS: GLIMEPIRIDE 1 MG TABLET PO SCH (09:57)
[2020-07-25] MEDS: ALLOPURINOL 300 MG TABLET PO SCH (09:57)
[2020-07-25] MEDS: CHOLECALCIFEROL (D3) 1,000 UNIT (25 MCG) TABLET PO SCH (09:57)
[2020-07-25] MEDS: CYCLOSPORINE 0.05% OPH EMULSIO 0.4 ML DROPERETTE OU SCH ×2 (10:19→21:05)
[2020-07-25] MEDS: CARBOXYMETHYLCELLULOSE SOD 0.5% 0.4 ML DROPERETTE OU PRN ×2 (10:19→21:05)
[2020-07-25] MEDS: ONDANSETRON 4 MG TAB.RAPDIS PO PRN (11:24)
[2020-07-25] MEDS: METOPROLOL SUCCINATE 25 MG TAB.SR.24H PO SCH (21:04)
--- NOTE | 2020-07-25 22:01 | PDOC PROGRESS REPORT ---
Subjective Progress Note for:: 07/25/20 Subjective:: Patient seen by the bedside she has polymicrobial UTI Reason For Visit: UTI, AMS Physical Exam Vital Signs: Temp Pulse Resp BP Pulse Ox 98.2 F 80 18 180/80 H 100 07/25/20 19:19 07/25/20 19:19 07/25/20 19:19 07/25/20 19:19 07/25/20 19:19 Intake & Output 07/24/20 07/25/20 07/26/20 06:59 06:59 06:59 Intake Total 1726 1780 2252 Output Total 2925 2050 900 Balance -1199 -270 1352 Weight 156.7 kg 153.6 kg General appearance: PRESENT: no acute distress Eye exam: PRESENT: PERRLA Cardiovascular exam: PRESENT: +S1, +S2 Neurological exam: PRESENT: alert Results Laboratory Results: 07/25/20 04:34 07/23/20 06:30 07/25/20 04:34 WBC 5.7 RBC 3.94 Hgb 12.1 Hct 34.7 L MCV 88 MCH 30.7 MCHC 34.9 RDW 15.2 H Plt Count 196 Seg Neutrophils % 59.2 07/21/20 21:17 Troponin I < 0.012 Impressions: Chest X-Ray 07/21/20 20:40 IMPRESSION: 1. Low lung volumes with compressive changes. The possibility of a left basilar opacity and small left basilar effusion are not excluded. Clinical correlation is advised. 2. Persistent enlargement of the cardiac silhouette. Assessment & Plan - Diagnosis (1) Urinary tract infection Qualifiers: Urinary tract infection type: site unspecified Hematuria presence: without hematuria Qualified Code(s): N39.0 - Urinary tract infection, site not specified Is this a current diagnosis for this admission?: Yes Plan: She has polymicrobial UTI (2) Metabolic encephalopathy Is this a current diagnosis for this admission?: Yes (3) Type 2 diabetes mellitus Qualifiers: Diabetes mellitus longwall foreman insulin use: unspecified mcc insulin use status Diabetes mellitus complication status: with other specified complication Qualified Code(s): E11.69 - Type 2 diabetes mellitus with other specified complication Is this a current diagnosis for this admission?: Yes - Time Time Spent with patient: 25-34 minutes Level of Care: IMCU Medications reviewed and adjusted accordingly: Yes
[2020-07-26] MEDS: LEVOTHYROXINE SODIUM 0.088 MG TABLET PO SCH (05:20)
[2020-07-26] MEDS: AZTREONAM 1 GM in DEXTROSE 5%-WATER 50 ML IV SCH ×3 (05:21→21:18)
[2020-07-26] MEDS: OXYCODONE HCL IR 5 MG TABLET PO SCH ×5 (05:21→21:19)
[2020-07-26] MEDS: ONDANSETRON 4 MG TAB.RAPDIS PO PRN ×3 (08:06→22:30)
[2020-07-26] MEDS ORDERED: FLUCONAZOLE 100 MG TABLET PO SCH (10:00)
[2020-07-26] MEDS: AMLODIPINE BESYLATE 5 MG TABLET PO SCH (10:29)
[2020-07-26] MEDS: GLIMEPIRIDE 1 MG TABLET PO SCH (10:29)
[2020-07-26] MEDS: ALLOPURINOL 300 MG TABLET PO SCH (10:30)
[2020-07-26] MEDS: CHOLECALCIFEROL (D3) 1,000 UNIT (25 MCG) TABLET PO SCH (10:30)
[2020-07-26] MEDS: CETIRIZINE 10 MG TABLET PO SCH (10:30)
[2020-07-26] MEDS: ENOXAPARIN SODIUM INJ 40 MG/0.4 ML DISP.SYRIN SUBCUT SCH (10:34)
[2020-07-26] MEDS: CARBOXYMETHYLCELLULOSE SOD 0.5% 0.4 ML DROPERETTE OU PRN (11:07)
[2020-07-26] MEDS: CYCLOSPORINE 0.05% OPH EMULSIO 0.4 ML DROPERETTE OU SCH ×2 (11:08→21:23)
[2020-07-26] MEDS: METOPROLOL SUCCINATE 25 MG TAB.SR.24H PO SCH (21:22)
[2020-07-26] MEDS ORDERED: (PENDING PHARMACY ID) (Fluconazole [Diflucan] 150 MG) PO SCH (22:00)
--- NOTE | 2020-07-26 23:09 | PDOC PROGRESS REPORT ---
Subjective Progress Note for:: 07/26/20 Subjective:: Patient continues to have nausea, loss of appetite to solid food only tolerating liquid diet I will consult surgery for EGD Reason For Visit: UTI, AMS Physical Exam Vital Signs: Temp Pulse Resp BP Pulse Ox 97.8 F 83 14 182/80 H 99 07/26/20 20:56 07/26/20 20:56 07/26/20 20:56 07/26/20 20:56 07/26/20 20:56 Intake & Output 07/25/20 07/26/20 07/27/20 06:59 06:59 06:59 Intake Total 1780 3252 170 Output Total 2050 1850 325 Balance -270 1402 -155 Weight 153.6 kg 155.1 kg General appearance: PRESENT: no acute distress Eye exam: PRESENT: PERRLA Respiratory exam: PRESENT: clear to auscultation pennie Cardiovascular exam: PRESENT: +S1, +S2 GI/Abdominal exam: PRESENT: soft Neurological exam: PRESENT: alert Results Laboratory Results: 07/25/20 04:34 07/23/20 06:30 07/21/20 21:55 Suprapubic Catheter Urine Culture - Final Escherichia Coli Pseudomonas Aeruginosa Streptococcus Bovis Grp 07/21/20 21:17 Troponin I < 0.012 Impressions: Chest X-Ray 07/21/20 20:40 IMPRESSION: 1. Low lung volumes with compressive changes. The possibility of a left basilar opacity and small left basilar effusion are not excluded. Clinical correlation is advised. 2. Persistent enlargement of the cardiac silhouette. Assessment & Plan - Diagnosis (1) Urinary tract infection Qualifiers: Urinary tract infection type: site unspecified Hematuria presence: without hematuria Qualified Code(s): N39.0 - Urinary tract infection, site not specified Is this a current diagnosis for this admission?: Yes Plan: She has polymicrobial UTI (2) Metabolic encephalopathy Is this a current diagnosis for this admission?: Yes (3) Type 2 diabetes mellitus Qualifiers: Diabetes mellitus half-way insulin use: unspecified terminal supervisor insulin use status Diabetes mellitus complication status: with other specified complication Qualified Code(s): E11.69 - Type 2 diabetes mellitus with other specified complication Is this a current diagnosis for this admission?: Yes - Time Time Spent with patient: 25-34 minutes Level of Care: MEDICAL Medications reviewed and adjusted accordingly: Yes Anticipated discharge: SNF Anticipated DC Timeframe: within 72 hours
[2020-07-27] MEDS: RINGERS SOLUTION,LACTATED 1,000 ML IV PRN ×2 (00:52→18:59)
[2020-07-27] MEDS: AZTREONAM 1 GM in DEXTROSE 5%-WATER 50 ML IV SCH ×3 (05:25→22:24)
[2020-07-27] MEDS: LEVOTHYROXINE SODIUM 0.088 MG TABLET PO SCH (05:25)
[2020-07-27] MEDS: OXYCODONE HCL IR 5 MG TABLET PO SCH ×4 (05:25→20:31)
[2020-07-27] MEDS ORDERED: DEXTROSE 50%-WATER 25 GM/50 ML DISP.SYRIN IV PRN ×2 (09:28)
[2020-07-27] MEDS ORDERED: GLUCAGON,HUMAN RECOMB 1 MG INJ SUBCUT PRN (09:28)
[2020-07-27] MEDS ORDERED: DEXTROSE 40% GEL 15 GM TUBE PO PRN ×3 (09:28→10:00)
--- NOTE | 2020-07-27 09:28 | PDOC CONSULTATION ---
Consultation Consult Date: 07/27/20 Provider Consulted: JULIEN ROBERTS Consult reason:: EGD for prolonged nausea History of Present Illness Admission Date/PCP: 07/23/20 13:28 NAYLA GEE MD History of Present Illness: NETTA RICO is a 70 year old female morbidly obese diabetic admitted for metabolic encephalopathy and UTI has been complaining of nausea for the more than a week but able to tolerate liquid diet. Denies any abdominal pains. Had lap band for obesity 10 years ago at [facility] as well as fundoplication. Past Medical History Cardiac Medical History: Reports: Congestive Heart Failure, Hyperlipidema, Hypertension, Peripheral Vascular Disease, Heart Murmur Denies: Myocardial Infarction Pulmonary Medical History: Reports: Asthma - severe,neb,inhaler, Bronchitis, Chronic Obstructive Pulmonary Disease (COPD) Denies: Pneumonia, Respiratory Failure, Sleep Apnea, Tuberculosis Neurological Medical History: Denies: Seizures Endocrine Medical History: Reports: Diabetes Mellitus Type 2, Hypothyroidism GI Medical History: Reports: Gastroesophageal Reflux Disease, Hiatal Hernia Musculoskeltal Medical History: Reports: Arthritis - RA, Fibromyalgia Psychiatric Medical History: Reports: Depression Hematology: Denies: Anemia, Hemophilia, Sickle Cell Disease Past Surgical History Past Surgical History: Reports: Cholecystectomy, Gastric Bypass Surgery - Lap Band, post in stomach for lap band , Hysterectomy, Orthopedic Surgery - right hip x3, left knee x1, Other - LAP-BAND procedures Denies: Amputation Social History Lives with: Senior Living Smoking Status: Former Smoker Electronic Cigarette use?: No Frequency of Alcohol Use: None Hx Recreational Drug Use: No Drugs: None Hx Prescription Drug Abuse: No Family History Family History: Reviewed & Not Pertinent, Hypertension Parental Family History Reviewed: Yes Children Family History Reviewed: No Sibling(s) Family History Reviewed.: No Medication/Allergy Home Medications: Allopurinol [Zyloprim 300 mg Tablet] 300 mg PO DAILY 11/12/19 Amlodipine Besylate [Norvasc 5 mg Tablet] 5 mg PO DAILY 11/12/19 Baclofen [Baclofen 10 mg Tablet] 10 mg PO Q6 11/12/19 Benzocaine/Menthol [Chloraseptic Sore Throat Lozenge] 1 lozenge PO Q1HP PRN 11/12/19 Bisacodyl [Dulcolax 5 mg Tablet] 5 mg PO DAILYP PRN 11/12/19 Budesonide/Formoterol Fumarate [Symbicort HFA 160-4.5 mcg Inhaler 6 gm] 2 puff IH BID 11/12/19 Calcium Carbonate [Calcium] 600 mg PO DAILY 11/12/19 Carboxymethylcellulose Sodium [Refresh Celluvisc Drops] 1 drop OU QHS 11/12/19 Carboxymethylcellulose Sodium [Refresh Tears] 1 drop OU QIDP PRN 11/12/19 Cetirizine HCl [Zyrtec 10 mg Tablet] 10 mg PO DAILY 11/12/19 Cholecalciferol (Vitamin D3) [Vitamin D3 1000 Unit Tablet] 4,000 unit PO DAILY 11/12/19 Cranberry Fruit Extract [Cranberry 250 mg Capsule] 250 mg PO QAM 11/12/19 Cyclosporine 0.05% Oph Emulsio [Restasis 0.05% Oph Emulsion Pf 0.4 ml] 1 drop OU Q12 11/12/19 Furosemide [Lasix 40 mg Tablet] 40 mg PO BID 11/12/19 Glimepiride [Amaryl] 2 mg PO DAILY 11/12/19 Hydroxychloroquine Sulfate [Plaquenil 200 mg Tablet] 200 mg PO Q12 11/12/19 Insulin Glargine,Hum.rec.anlog [Lantus Insulin 100 Unit/1 ml 10 ml] 5 units SQ QHS 11/12/19 Levothyroxine Sodium [Synthroid 0.088 mg Tablet] 0.088 mg PO Q6AM 11/12/19 Menthol/Camphor [Sarna Original 0.5%-0.5% Lotn] 1 applic TOP QIDP PRN 11/12/19 Metoprolol Succinate [Toprol Xl 25 mg Tab.sr] 25 mg PO QHS 11/12/19 Mineral Oil/Hydrophil Petrolat [Aquaphor Healing Ointment] 1 applic TOP BID 11/12/19 Mirabegron [Myrbetriq] 25 mg PO QAM 11/12/19 Montelukast Sodium [Singulair 10 mg Tablet] 10 mg PO QHS 11/12/19 Naloxegol Oxalate [Movantik 25 mg Tablet] 25 mg PO QAM 11/12/19 Ondansetron [Zofran Odt 4 mg Tablet] 4 mg PO Q6HP PRN 02/02/20 Oxycodone HCl [Oxy-Ir 5 mg Tablet] 10 mg PO BID 11/12/19 Pantoprazole Sodium [Protonix [address] Tablet] 40 mg PO Q12 11/12/19 Pimecrolimus 1 applic TOP BID 11/12/19 Polyethylene Glycol 3350 [Miralax Powder 17 gm/Packet] 1 packet PO BID 11/12/19 Polyethylene Glycol 3350 [Miralax Powder 17 gm/Packet] 1 packet PO DAILYP PRN 11/12/19 Polyvinyl Alcohol [Liquitears 1.4% Ophth Soln 15 ml] 1 drop OU QIDP PRN 11/12/19 Potassium Chloride [Klor-Con 10 Meq Tablet ER] 10 meq PO Q12 11/12/19 Pregabalin 150 mg PO Q8 11/12/19 Sennosides/Docusate Sodium [Senna Plus 8.6-50 mg Tablet] 1 tab PO BID 11/12/19 Sodium Chloride [Worth Nasal [place] 44 ml Bottle] 1 spray NASL DAILYP PRN 11/12/19 Fluconazole [Diflucan] 150 mg PO FR@2200 07/06/20 Menthol [Biofreeze] 1 applic TP Q6HP PRN 07/06/20 Ceftriaxone Sodium [Rocephin Inj 1000 mg Vial] 1 gm IM DAILY 07/22/20 Insulin Lispro [Humalog Insulin 100 Unit/1 ml 3 ml Vial] 0 unit SUBCUT .SLD SCALE 07/22/20 Oxycodone HCl [Oxy-Ir 5 mg Tablet] 20 mg PO Q8 07/22/20 Allergies/Adverse Reactions: ciprofloxacin [From Cipro] Allergy (Severe, Verified 07/19/20 03:58) Anaphylaxis Penicillins Allergy (Severe, Verified 07/19/20 03:58) Anaphylaxis adhesive tape [Adhesive Tape] Adverse Reaction (Severe, Verified 07/19/20 03:58) BLISTERS, SKIN BECOMES RAW indomethacin [From Indocin] Adverse Reaction (Severe, Verified 07/19/20 03:58) CAUSES SWELLING AND INFLAMMATION meperidine HCl [From Demerol] Adverse Reaction (Severe, Verified 07/19/20 03:58) Hallucinations Review of Systems Constitutional: PRESENT: as per HPI Gastrointestinal: PRESENT: nausea Physical Exam Vital Signs: Temp Pulse Resp BP Pulse Ox 97.6 F 82 20 176/76 H 96 07/27/20 07:37 07/27/20 07:37 07/27/20 07:37 07/27/20 07:37 07/27/20 07:37 Intake & Output 07/26/20 07/27/20 07/28/20 06:59 06:59 06:59 Intake Total 3252 1170 Output Total 1850 1625 Balance 1402 -455 Weight 155.1 kg 155.1 kg General appearance: PRESENT: morbidly obese Head exam: PRESENT: atraumatic Eye exam: PRESENT: conjunctiva pink Mouth exam: PRESENT: moist Neck exam: PRESENT: full ROM Respiratory exam: PRESENT: clear to auscultation pennie Cardiovascular exam: PRESENT: RRR Pulses: PRESENT: normal radial pulses Vascular exam: PRESENT: normal capillary refill GI/Abdominal exam: PRESENT: soft - Nontender Rectal exam: PRESENT: deferred Neurological exam: PRESENT: alert, oriented to person, oriented to place, oriented to time, oriented to situation Psychiatric exam: PRESENT: appropriate affect Skin exam: PRESENT: normal color, warm Results Laboratory Results: 07/25/20 04:34 07/23/20 06:30 07/22/20 04:58 Blood Blood Culture - Final NO GROWTH IN 5 DAYS 07/21/20 21:55 Suprapubic Catheter Urine Culture - Final Escherichia Coli Pseudomonas Aeruginosa Streptococcus Bovis Grp 07/21/20 21:17 Troponin I < 0.012 Impressions: Chest X-Ray 07/21/20 20:40 IMPRESSION: 1. Low lung volumes with compressive changes. The possibility of a left basilar opacity and small left basilar effusion are not excluded. Clinical correlation is advised. 2. Persistent enlargement of the cardiac silhouette. Assessment & Plan - Diagnosis (1) Altered mental status Qualifiers: Altered mental status type: unspecified Qualified Code(s): R41.82 - Altered mental status, unspecified Is this a current diagnosis for this admission?: Yes (2) Metabolic encephalopathy Is this a current diagnosis for this admission?: Yes (3) Urinary tract infection Qualifiers: Urinary tract infection type: site unspecified Hematuria presence: without hematuria Qualified Code(s): N39.0 - Urinary tract infection, site not specified Is this a current diagnosis for this admission?: Yes (4) Chronic indwelling Sales catheter Is this a current diagnosis for this admission?: Yes (5) Hypertension Qualifiers: Hypertension type: essential hypertension Qualified Code(s): I10 - Essential (primary) hypertension Is this a current diagnosis for this admission?: Yes (6) Type 2 diabetes mellitus Qualifiers: Diabetes mellitus remote computer terminal operator insulin use: unspecified remote computer terminal operator insulin use status Diabetes mellitus complication status: with other specified complication Qualified Code(s): E11.69 - Type 2 diabetes mellitus with other specified complication Is this a current diagnosis for this admission?: Yes - Time Time Spent: 30 to 50 Minutes - Plan Summary Plan Summary: 70-year-old female post lap band surgery about 10 years ago at [facility], history of type 2 diabetes mellitus, UTI with admission for altered mental status due to metabolic encephalopathy, has been having nausea for the more than a week and surgery is being consulted for possible EGD. At present patient is alert awake and tolerating liquid diet. We will asked Dr. Huston to do an EGD Wednesday. We will keep the patient n.p.o. Wednesday night.
[2020-07-27] MEDS ORDERED: DEXTROSE 50%-WATER SYRINGE 25 GM/50 ML DOSE IV PRN (10:00)
[2020-07-27] MEDS ORDERED: DEXTROSE 40% GEL 15 GM TUBE X 2 PO PRN (10:00)
[2020-07-27] MEDS ORDERED: DEXTROSE 50%-WATER SYRINGE 12.5 GM/25 ML DOSE IV PRN (10:00)
[2020-07-27] MEDS ORDERED: GLUCAGON,HUMAN RECOMB 1 MG INJ IM PRN (10:00)
[2020-07-27] MEDS: ENOXAPARIN SODIUM INJ 40 MG/0.4 ML DISP.SYRIN SUBCUT SCH (10:35)
[2020-07-27] MEDS: ONDANSETRON 4 MG TAB.RAPDIS PO PRN (10:40)
[2020-07-27] MEDS: GLIMEPIRIDE 1 MG TABLET PO SCH (10:45)
[2020-07-27] MEDS: AMLODIPINE BESYLATE 5 MG TABLET PO SCH (10:46)
[2020-07-27] MEDS: CHOLECALCIFEROL (D3) 1,000 UNIT (25 MCG) TABLET PO SCH (10:46)
[2020-07-27] MEDS: CETIRIZINE 10 MG TABLET PO SCH (10:47)
[2020-07-27] MEDS: ALLOPURINOL 300 MG TABLET PO SCH (10:47)
[2020-07-27] MEDS: CYCLOSPORINE 0.05% OPH EMULSIO 0.4 ML DROPERETTE OU SCH ×2 (10:47→22:49)
[2020-07-27 10:48] LABS: ABSOLUTE EOSINOPHILS # (AUTO) 0.1 10^3/uL (0.0-0.6); ABSOLUTE LYMPHOCYTES (AUTO) 1.4 10^3/uL (0.5-4.7); ABSOLUTE MONOCYTES (AUTO) 0.5 10^3/uL (0.1-1.4); ABSOLUTE NEUT (AUTO) 2.2 10^3/uL (1.7-8.2); BASOPHILS % (AUTO) 0.7 % (0-2); EOSINOPHILS % (AUTO) 3.3 % (0-6); HEMATOCRIT 33.8 % (36.0-47.0); HEMOGLOBIN 11.7 g/dL (12.0-15.5); LYMPHOCYTES % (AUTO) 32.2 % (13-45); MEAN CORPUSCULAR HEMOGLOBIN 30.8 pg (27.0-33.4); MEAN CORPUSCULAR HGB CONC 34.6 g/dL (32.0-36.0); MEAN CORPUSCULAR VOLUME 89 fl (80-97); MONOCYTES % (AUTO) 11.9 % (3-13); PLATELET COUNT 183 10^3/uL (150-450); RED CELL DISTRIBUTION WIDTH 15.3 % (11.5-14.0); SEGMENTED NEUTROPHILS % (AUTO) 51.9 % (42-78); TOTAL CELLS COUNTED % (AUTO) 100 %; WHITE BLOOD COUNT 4.3 10^3/uL (4.0-10.5)
[2020-07-27] MEDS: CARBOXYMETHYLCELLULOSE SOD 0.5% 0.4 ML DROPERETTE OU PRN (10:51)
--- NOTE | 2020-07-27 10:57 | PDOC PROGRESS REPORT ---
Subjective Progress Note for:: 07/27/20 Subjective:: Patient was admitted for the urinary tract infections encephalopathy Patient have a significant history of the chronic UTI suprapubic catheter Patient used to see urology at [place] currently a correction resident Patient also seen by the ID in the past Patient also seen by the general surgery scheduled for endoscopy Patient is denied any chest pain no short of breath Reason For Visit: UTI, AMS Physical Exam Vital Signs: Temp Pulse Resp BP Pulse Ox 97.6 F 82 20 176/76 H 96 07/27/20 07:37 07/27/20 07:37 07/27/20 07:37 07/27/20 07:37 07/27/20 07:37 Intake & Output 07/26/20 07/27/20 07/28/20 06:59 06:59 06:59 Intake Total 3252 1170 Output Total 1850 1625 Balance 1402 -455 Weight 155.1 kg 155.1 kg General appearance: PRESENT: no acute distress, obese, well-developed, well- nourished Head exam: PRESENT: atraumatic, normocephalic Eye exam: PRESENT: conjunctiva pink, EOMI, PERRLA. ABSENT: scleral icterus Ear exam: PRESENT: normal external ear exam Mouth exam: PRESENT: moist, tongue midline Neck exam: PRESENT: full ROM. ABSENT: carotid bruit, JVD, lymphadenopathy, thyromegaly Respiratory exam: PRESENT: decreased breath sounds Cardiovascular exam: PRESENT: RRR. ABSENT: diastolic murmur, rubs, systolic murmur Vascular exam: PRESENT: normal capillary refill GI/Abdominal exam: PRESENT: normal bowel sounds, soft. ABSENT: distended, guarding, mass, organolmegaly, rebound, tenderness Rectal exam: PRESENT: deferred Neurological exam: PRESENT: alert, awake, oriented to person, oriented to place, oriented to time, oriented to situation. ABSENT: motor sensory deficit Psychiatric exam: PRESENT: appropriate affect, normal mood. ABSENT: homicidal ideation, suicidal ideation Skin exam: PRESENT: dry, intact, warm. ABSENT: cyanosis, rash Results Laboratory Results: 07/27/20 10:30 07/27/20 10:30 WBC 4.3 RBC 3.80 Hgb 11.7 L Hct 33.8 L MCV 89 MCH 30.8 MCHC 34.6 RDW 15.3 H Plt Count 183 Seg Neutrophils % 51.9 07/22/20 04:58 Blood Blood Culture - Final NO GROWTH IN 5 DAYS 07/21/20 21:55 Suprapubic Catheter Urine Culture - Final Escherichia Coli Pseudomonas Aeruginosa Streptococcus Bovis Grp 07/21/20 21:17 Troponin I < 0.012 Impressions: Chest X-Ray 07/21/20 20:40 IMPRESSION: 1. Low lung volumes with compressive changes. The possibility of a left basilar opacity and small left basilar effusion are not excluded. Clinical correlation is advised. 2. Persistent enlargement of the cardiac silhouette. Assessment & Plan - Diagnosis (1) Altered mental status Qualifiers: Altered mental status type: unspecified Qualified Code(s): R41.82 - Altered mental status, unspecified Is this a current diagnosis for this admission?: Yes (2) Metabolic encephalopathy Is this a current diagnosis for this admission?: Yes (3) Urinary tract infection Qualifiers: Urinary tract infection type: site unspecified Hematuria presence: without hematuria Qualified Code(s): N39.0 - Urinary tract infection, site not specified Is this a current diagnosis for this admission?: Yes (4) CKD stage 2 due to type 2 diabetes mellitus Is this a current diagnosis for this admission?: Yes (5) Chronic indwelling Sales catheter Is this a current diagnosis for this admission?: Yes (6) Chronic obstructive pulmonary disease with (acute) exacerbation Is this a current diagnosis for this admission?: Yes (7) Chronic pain syndrome Is this a current diagnosis for this admission?: Yes - Time Time Spent with patient: 15-24 minutes Level of Care: TELE Medications reviewed and adjusted accordingly: Yes Anticipated discharge: SNF Anticipated DC Timeframe: Other - Plan Summary Plan Summary: Continues to current medications
[2020-07-27 11:08] LABS: BLOOD UREA NITROGEN 6 mg/dL (7-20); CALCIUM 8.2 mg/dL (8.4-10.2); CARBON DIOXIDE 29 mmol/L (22-30); CHLORIDE 102 mmol/L (98-107); GLUCOSE 164 mg/dL (75-110); POTASSIUM 3.6 mmol/L (3.6-5.0)
[2020-07-27 11:11] LABS: ANION GAP 4 (5-19)
[2020-07-27] MEDS: INSULIN LISPRO 100 UNIT/ML 3 ML VIAL SUBCUT SCH ×3 (12:35→21:39)
[2020-07-27] MEDS: BACLOFEN 10 MG TABLET PO SCH ×2 (12:42→20:31)
[2020-07-27] MEDS: PREGABALIN 75 MG CAPSULE PO SCH ×2 (14:28→22:48)
[2020-07-27] MEDS: OXYCODONE HCL SR 10 MG TABLET PO SCH ×2 (15:22→22:48)
[2020-07-27] MEDS: METOPROLOL SUCCINATE 25 MG TAB.SR.24H PO SCH (22:48)
[2020-07-28] MEDS: BACLOFEN 10 MG TABLET PO SCH ×5 (01:00→23:04)
[2020-07-28] MEDS: RINGERS SOLUTION,LACTATED 1,000 ML IV PRN ×2 (05:25→18:59)
[2020-07-28] MEDS: AZTREONAM 1 GM in DEXTROSE 5%-WATER 50 ML IV SCH ×3 (05:26→23:05)
[2020-07-28] MEDS: LEVOTHYROXINE SODIUM 0.088 MG TABLET PO SCH (06:15)
[2020-07-28] MEDS: PREGABALIN 75 MG CAPSULE PO SCH ×3 (06:15→23:04)
[2020-07-28] MEDS: OXYCODONE HCL SR 10 MG TABLET PO SCH ×3 (06:15→23:03)
[2020-07-28] MEDS: INSULIN LISPRO 100 UNIT/ML 3 ML VIAL SUBCUT SCH ×4 (07:52→23:05)
[2020-07-28] MEDS: CETIRIZINE 10 MG TABLET PO SCH (09:41)
[2020-07-28] MEDS: CHOLECALCIFEROL (D3) 1,000 UNIT (25 MCG) TABLET PO SCH (09:41)
[2020-07-28] MEDS: ALLOPURINOL 300 MG TABLET PO SCH (09:41)
[2020-07-28] MEDS: GLIMEPIRIDE 1 MG TABLET PO SCH (09:42)
[2020-07-28] MEDS: OXYCODONE HCL IR 5 MG TABLET PO SCH ×2 (09:42→17:37)
[2020-07-28] MEDS: AMLODIPINE BESYLATE 5 MG TABLET PO SCH (09:42)
[2020-07-28] MEDS: ENOXAPARIN SODIUM INJ 40 MG/0.4 ML DISP.SYRIN SUBCUT SCH (09:43)
[2020-07-28] MEDS: CARBOXYMETHYLCELLULOSE SOD 0.5% 0.4 ML DROPERETTE OU PRN ×2 (09:45→23:11)
[2020-07-28] MEDS: CYCLOSPORINE 0.05% OPH EMULSIO 0.4 ML DROPERETTE OU SCH ×2 (09:45→23:06)
--- NOTE | 2020-07-28 10:00 | PDOC PROGRESS REPORT ---
Subjective Progress Note for:: 07/28/20 Subjective:: Patient is currently doing fair Patient is comfortable hip pain Patient is asked to resume all her home medications including the pain medications which patient with chronic pain syndromes Patient is scheduled for the endoscopy Denied any chest pain no short of breath Tolerating the liquid diets Reason For Visit: UTI, AMS Physical Exam Vital Signs: Temp Pulse Resp BP Pulse Ox 97.5 F 73 17 168/73 H 100 07/28/20 07:36 07/28/20 07:36 07/28/20 07:36 07/28/20 07:36 07/28/20 07:36 Intake & Output 07/27/20 07/28/20 07/29/20 06:59 06:59 06:59 Intake Total 1170 3420 Output Total 1625 2350 Balance -455 1070 Weight 155.1 kg 155 kg General appearance: PRESENT: no acute distress, obese, well-developed, well- nourished Head exam: PRESENT: atraumatic, normocephalic Eye exam: PRESENT: conjunctiva pink, EOMI, PERRLA. ABSENT: scleral icterus Ear exam: PRESENT: normal external ear exam Mouth exam: PRESENT: moist, tongue midline Neck exam: PRESENT: full ROM. ABSENT: carotid bruit, JVD, lymphadenopathy, thyromegaly Cardiovascular exam: PRESENT: RRR. ABSENT: diastolic murmur, rubs, systolic murmur Vascular exam: PRESENT: normal capillary refill GI/Abdominal exam: PRESENT: normal bowel sounds, soft. ABSENT: distended, guarding, mass, organolmegaly, rebound, tenderness Rectal exam: PRESENT: deferred Neurological exam: PRESENT: alert, awake, oriented to person, oriented to place, oriented to time, oriented to situation, CN II-XII grossly intact. ABSENT: motor sensory deficit Psychiatric exam: PRESENT: appropriate affect, normal mood. ABSENT: homicidal ideation, suicidal ideation Skin exam: PRESENT: dry, intact, warm. ABSENT: cyanosis, rash Results Laboratory Results: 07/27/20 10:30 07/27/20 10:30 07/27/20 07/27/20 10:30 10:30 WBC 4.3 RBC 3.80 Hgb 11.7 L Hct 33.8 L MCV 89 MCH 30.8 MCHC 34.6 RDW 15.3 H Plt Count 183 Seg Neutrophils % 51.9 Sodium 135.1 L Potassium 3.6 Chloride 102 Carbon Dioxide 29 Anion Gap 4 L BUN 6 L Creatinine 0.48 L Est GFR ( Amer) > 60 Glucose 164 H Calcium 8.2 L 07/21/20 21:17 Troponin I < 0.012 Impressions: Chest X-Ray 07/21/20 20:40 IMPRESSION: 1. Low lung volumes with compressive changes. The possibility of a left basilar opacity and small left basilar effusion are not excluded. Clinical correlation is advised. 2. Persistent enlargement of the cardiac silhouette. Assessment & Plan - Diagnosis (1) Altered mental status Qualifiers: Altered mental status type: unspecified Qualified Code(s): R41.82 - Altered mental status, unspecified Is this a current diagnosis for this admission?: Yes (2) Metabolic encephalopathy Is this a current diagnosis for this admission?: Yes (3) Urinary tract infection Qualifiers: Urinary tract infection type: site unspecified Hematuria presence: without hematuria Qualified Code(s): N39.0 - Urinary tract infection, site not specified Is this a current diagnosis for this admission?: Yes (4) CKD stage 2 due to type 2 diabetes mellitus Is this a current diagnosis for this admission?: Yes (5) Chronic indwelling Sales catheter Is this a current diagnosis for this admission?: Yes (6) Chronic obstructive pulmonary disease with (acute) exacerbation Is this a current diagnosis for this admission?: Yes (7) Chronic pain syndrome Is this a current diagnosis for this admission?: Yes - Time Time Spent with patient: 15-24 minutes Level of Care: IMCU Medications reviewed and adjusted accordingly: Yes Anticipated discharge: SNF Anticipated DC Timeframe: Other - Plan Summary Plan Summary: Continues to current medications
[2020-07-28] MEDS ORDERED: DEXTROSE 50%-WATER 25 GM/50 ML DISP.SYRIN IV PRN ×2 (10:39)
[2020-07-28] MEDS ORDERED: GLUCAGON,HUMAN RECOMB 1 MG INJ SUBCUT PRN (10:39)
[2020-07-28] MEDS ORDERED: DEXTROSE 40% GEL 15 GM TUBE PO PRN ×2 (10:39)
--- NOTE | 2020-07-28 12:53 | PDOC PROGRESS REPORT ---
Subjective Progress Note for:: 07/28/20 Subjective:: Still with nausea Reason For Visit: UTI, AMS Physical Exam Vital Signs: Temp Pulse Resp BP Pulse Ox 97.5 F 69 18 135/57 H 100 07/28/20 11:17 07/28/20 11:17 07/28/20 11:17 07/28/20 11:17 07/28/20 07:36 Intake & Output 07/27/20 07/28/20 07/29/20 06:59 06:59 06:59 Intake Total 1170 3420 Output Total 1625 2350 240 Balance -455 1070 -240 Weight 155.1 kg 155 kg Exam: Abdomen is soft and nontender Results Laboratory Results: 07/27/20 10:30 07/27/20 10:30 07/21/20 21:17 Troponin I < 0.012 Impressions: Chest X-Ray 07/21/20 20:40 IMPRESSION: 1. Low lung volumes with compressive changes. The possibility of a left basilar opacity and small left basilar effusion are not excluded. Clinical correlation is advised. 2. Persistent enlargement of the cardiac silhouette. Assessment & Plan - Diagnosis (1) Altered mental status Qualifiers: Altered mental status type: unspecified Qualified Code(s): R41.82 - Altered mental status, unspecified Is this a current diagnosis for this admission?: Yes (2) Metabolic encephalopathy Is this a current diagnosis for this admission?: Yes (3) Urinary tract infection Qualifiers: Urinary tract infection type: site unspecified Hematuria presence: without hematuria Qualified Code(s): N39.0 - Urinary tract infection, site not specified Is this a current diagnosis for this admission?: Yes (4) Chronic indwelling Sales catheter Is this a current diagnosis for this admission?: Yes (5) Hypertension Qualifiers: Hypertension type: essential hypertension Qualified Code(s): I10 - Essential (primary) hypertension Is this a current diagnosis for this admission?: Yes (6) Type 2 diabetes mellitus Qualifiers: Diabetes mellitus correction insulin use: unspecified parts counterman insulin use status Diabetes mellitus complication status: with other specified complication Qualified Code(s): E11.69 - Type 2 diabetes mellitus with other specified complication Is this a current diagnosis for this admission?: Yes - Time Anticipated Discharge Disposition: Home, Self Care Anticipated Discharge Timeframe: within 72 hours - Inpatient Certification Medical Necessity: Need For IV Fluids - Plan Summary Plan Summary: 70-year-old female had gastric band placement 10 years ago at [facility]. Also had fundoplication at that time. Has been complaining of nausea for the past couple of weeks but able to tolerate clear liquids. She is still morbidly obese. We will order barium swallow today and possibly do EGD tomorrow care of Dr. Huston
[2020-07-28] MEDS: METOPROLOL SUCCINATE 25 MG TAB.SR.24H PO SCH (23:04)
[2020-07-29] MEDS: RINGERS SOLUTION,LACTATED 1,000 ML IV PRN ×2 (06:20→17:23)
[2020-07-29] MEDS: BACLOFEN 10 MG TABLET PO SCH ×4 (06:20→23:12)
[2020-07-29] MEDS: OXYCODONE HCL SR 10 MG TABLET PO SCH ×3 (06:21→21:52)
[2020-07-29] MEDS: PREGABALIN 75 MG CAPSULE PO SCH ×3 (06:21→21:52)
[2020-07-29] MEDS: LEVOTHYROXINE SODIUM 0.088 MG TABLET PO SCH (06:21)
[2020-07-29] MEDS: INSULIN LISPRO 100 UNIT/ML 3 ML VIAL SUBCUT SCH ×4 (08:25→21:53)
[2020-07-29] MEDS ORDERED: LEVOTHYROXINE SODIUM 0.088 MG TABLET PO ONE (09:00)
[2020-07-29] MEDS ORDERED: BACLOFEN 10 MG TABLET PO ONE (09:00)
[2020-07-29] MEDS ORDERED: PROPOFOL INJ 200 MG/20 ML VIAL IV ONE (09:22)
[2020-07-29] MEDS ORDERED: MIDAZOLAM 2 MG/2 ML INJ ONE (09:22)
[2020-07-29] MEDS ORDERED: LIDOCAINE 2% INJ-PF (20 MG/ML) 10 ML AMPUL ONE (09:22)
[2020-07-29] MEDS ORDERED: DIPHENHYDRAMINE HCL 50 MG/ML VIAL IV PRN (09:25)
[2020-07-29] MEDS ORDERED: PROMETHAZINE HCL INJ 25 MG/1 ML VIAL IV PRN ×2 (09:25)
[2020-07-29] MEDS ORDERED: ONDANSETRON HCL INJ/PF 4 MG/2 ML SDV IV PRN (09:25)
--- NOTE | 2020-07-29 10:11 | Operative Report ---
Operative Report DATE OF SURGERY: 07/29/20 PREOPERATIVE DIAGNOSIS: 1. Chronic nausea. 2. Morbid obesity. 3. History of gastric restrictive procedure POSTOPERATIVE DIAGNOSIS: Same with. 1. Small gastric polyp. 2. Intact proximal gastric wrap. 3. Mild irregularity of the Z-line at GE junction OPERATION: 1. Esophagogastroduodenoscopy. 2. Biopsies of the GE junction, curvature of the stomach. 3. Small gastric polypectomy SURGEON: MIGUEL PATEL ANESTHESIA: LMAC TISSUE REMOVED OR ALTERED: Mucosal biopsies as described above COMPLICATIONS: None ESTIMATED BLOOD LOSS: Scant INTRAOPERATIVE FINDINGS: See below PROCEDURE: The patient was taken to the preop holding area to the main operating room where LMAC anesthesia was induced with the patient on her bariatric bed. Oral mouthpiece inserted, appropriately positioned monitoring devices attached. Surgical plan and surgical timeout were conducted. The flexible upper endoscope was advanced to the oropharynx, through the esophagus, through the GE junction, through the stomach into the first and second portions of the duodenum. The patient tolerated the procedure well. The first and second portions of the duodenum were unremarkable. There was no evidence of tumor stricture bleeding or erythema. The pylorus was wide open. In the stomach there was no evidence of retained gastric contents. There was a small gastric polyp over the greater curvature which was removed by cold forceps device. Bleeding was minimal. It was sent as gastric polyp. A random greater curvature the stomach biopsy was chosen for DIONTE testing. The remainder of the stomach was unremarkable. Scope was retroflexed in the stomach, visualizing the proximal stomach. The cardia was intact, however there was distortion of the GE junction consistent with a wrap, at least partial if not full. The scope was straightened out and brought back through the proximal stomach, and the wrap area examined. This in retrospect likely represented a gastric restrictive procedure in the past. The GE junction was at 40 cm from the incisor, and there was some irregularity of the Z-line. This was photographed, and a cold forceps biopsy obtained. Bleeding was minimal. The remainder the esophagus was unremarkable: No evidence of varices, tumor stricture or abrasion. The stomach was decompressed, and biopsy sites checked for bleeding there was none. The scope was returned to the patient's oropharynx. No pathology seen in the hypopharynx. Scope was withdrawn from the patient's mouth. Patient tolerated procedure well, taken to recovery room in stable condition Recommendations: 1. No obvious pathologic findings on upper endoscopy; intact, remote proximal stomach wrap versus restrictive procedure may be actually responsible for symptoms, although this would be difficult to confirm. Follow-up barium swallow pending 2. I discussed the above with Dr. Brown. No indication for surgical intervention. Will sign off at this time, please reconsult surgery if clinically indicated.
[2020-07-29] MEDS: CHOLECALCIFEROL (D3) 1,000 UNIT (25 MCG) TABLET PO SCH (11:11)
[2020-07-29] MEDS: GLIMEPIRIDE 1 MG TABLET PO SCH (11:11)
[2020-07-29] MEDS: AMLODIPINE BESYLATE 5 MG TABLET PO SCH (11:11)
[2020-07-29] MEDS: OXYCODONE HCL IR 5 MG TABLET PO SCH (11:11)
[2020-07-29] MEDS: CETIRIZINE 10 MG TABLET PO SCH (11:11)
[2020-07-29] MEDS: ENOXAPARIN SODIUM INJ 40 MG/0.4 ML DISP.SYRIN SUBCUT SCH (11:12)
[2020-07-29] MEDS: ALLOPURINOL 300 MG TABLET PO SCH (11:14)
[2020-07-29] MEDS: CYCLOSPORINE 0.05% OPH EMULSIO 0.4 ML DROPERETTE OU SCH ×2 (11:14→21:52)
[2020-07-29] MEDS: CARBOXYMETHYLCELLULOSE SOD 0.5% 0.4 ML DROPERETTE OU PRN ×2 (11:15→21:52)
--- NOTE | 2020-07-29 21:04 | PDOC PROGRESS REPORT ---
Subjective Progress Note for:: 07/29/20 Subjective:: Patient seen by bedside, she had upper endoscopy done today, she was found to have small gastric polyp, There is no stricture Reason For Visit: UTI, AMS Physical Exam Vital Signs: Temp Pulse Resp BP Pulse Ox 97.9 F 86 19 147/54 H 96 07/29/20 19:44 07/29/20 19:44 07/29/20 19:44 07/29/20 19:44 07/29/20 19:44 Intake & Output 07/28/20 07/29/20 07/30/20 06:59 06:59 06:59 Intake Total 3420 2000 1810 Output Total 2350 1515 900 Balance 1070 485 910 Weight 155 kg 155 kg General appearance: PRESENT: no acute distress Eye exam: PRESENT: PERRLA Respiratory exam: PRESENT: clear to auscultation pennie Cardiovascular exam: PRESENT: +S1, +S2 GI/Abdominal exam: PRESENT: soft Neurological exam: PRESENT: alert Results Laboratory Results: 07/27/20 10:30 07/27/20 10:30 07/21/20 21:17 Troponin I < 0.012 Impressions: Chest X-Ray 07/21/20 20:40 IMPRESSION: 1. Low lung volumes with compressive changes. The possibility of a left basilar opacity and small left basilar effusion are not excluded. Clinical correlation is advised. 2. Persistent enlargement of the cardiac silhouette. 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
[2020-07-29] MEDS: METOPROLOL SUCCINATE 25 MG TAB.SR.24H PO SCH (21:52)
[2020-07-30] MEDS: PREGABALIN 75 MG CAPSULE PO SCH ×3 (05:28→22:00)
[2020-07-30] MEDS: BACLOFEN 10 MG TABLET PO SCH ×3 (05:28→18:13)
[2020-07-30] MEDS: LEVOTHYROXINE SODIUM 0.088 MG TABLET PO SCH (05:28)
[2020-07-30] MEDS: OXYCODONE HCL SR 10 MG TABLET PO SCH ×3 (05:28→22:00)
[2020-07-30] MEDS: RINGERS SOLUTION,LACTATED 1,000 ML IV PRN ×2 (06:05→15:51)
[2020-07-30] MEDS: INSULIN LISPRO 100 UNIT/ML 3 ML VIAL SUBCUT SCH ×4 (08:39→22:01)
[2020-07-30] MEDS: ENOXAPARIN SODIUM INJ 40 MG/0.4 ML DISP.SYRIN SUBCUT SCH (10:45)
[2020-07-30] MEDS: CHOLECALCIFEROL (D3) 1,000 UNIT (25 MCG) TABLET PO SCH (10:46)
[2020-07-30] MEDS: CETIRIZINE 10 MG TABLET PO SCH (10:47)
[2020-07-30] MEDS: AMLODIPINE BESYLATE 5 MG TABLET PO SCH (10:47)
[2020-07-30] MEDS: GLIMEPIRIDE 1 MG TABLET PO SCH (10:48)
[2020-07-30] MEDS: ALLOPURINOL 300 MG TABLET PO SCH (10:48)
[2020-07-30] MEDS: CARBOXYMETHYLCELLULOSE SOD 0.5% 0.4 ML DROPERETTE OU PRN (11:03)
[2020-07-30] MEDS: CYCLOSPORINE 0.05% OPH EMULSIO 0.4 ML DROPERETTE OU SCH ×2 (11:03→22:00)
[2020-07-30] MEDS: OXYCODONE HCL IR 5 MG TABLET PO SCH ×2 (12:43→18:13)
--- NOTE | 2020-07-30 20:01 | PDOC PROGRESS REPORT ---
Subjective Progress Note for:: 07/30/20 Subjective:: Patient is alert Reason For Visit: UTI, AMS Physical Exam Vital Signs: Temp Pulse Resp BP Pulse Ox 97.8 F 66 16 146/61 H 100 07/30/20 10:00 07/30/20 08:07 07/30/20 08:07 07/30/20 08:07 07/30/20 08:07 Intake & Output 07/29/20 07/30/20 07/31/20 06:59 06:59 06:59 Intake Total 1999 2810 3448 Output Total 1515 1700 1100 Balance 485 1110 2348 Weight 155 kg 155 kg 155 kg General appearance: PRESENT: no acute distress Eye exam: PRESENT: PERRLA Respiratory exam: PRESENT: clear to auscultation pennie Cardiovascular exam: PRESENT: +S1, +S2 GI/Abdominal exam: PRESENT: soft Neurological exam: PRESENT: alert Results Laboratory Results: 07/27/20 10:30 07/27/20 10:30 07/21/20 21:17 Troponin I < 0.012 Impressions: Chest X-Ray 07/21/20 20:40 IMPRESSION: 1. Low lung volumes with compressive changes. The possibility of a left basilar opacity and small left basilar effusion are not excluded. Clinical correlation is advised. 2. Persistent enlargement of the cardiac silhouette. 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: unspecified termite control service representative insulin use [facility] Diabetes mellitus complication status: with other specified complication Qualified Code(s): E11.69 - Type 2 diabetes mellitus with other specified complication Is this a current diagnosis for this admission?: Yes (4) Morbid (severe) obesity due to excess calories Is this a current diagnosis for this admission?: Yes - Time Time Spent with patient: 25-34 minutes Level of Care: MEDICAL Medications reviewed and adjusted accordingly: Yes Anticipated discharge: SNF Anticipated DC Timeframe: within 72 hours
[2020-07-30] MEDS: METOPROLOL SUCCINATE 25 MG TAB.SR.24H PO SCH (22:00)
[2020-07-31] MEDS: BACLOFEN 10 MG TABLET PO SCH ×5 (00:41→23:54)
[2020-07-31] MEDS: LEVOTHYROXINE SODIUM 0.088 MG TABLET PO SCH (05:47)
[2020-07-31] MEDS: OXYCODONE HCL SR 10 MG TABLET PO SCH ×3 (05:47→22:17)
[2020-07-31] MEDS: PREGABALIN 75 MG CAPSULE PO SCH ×3 (05:47→22:17)
[2020-07-31] MEDS: INSULIN LISPRO 100 UNIT/ML 3 ML VIAL SUBCUT SCH ×4 (07:14→22:18)
[2020-07-31] MEDS: CHOLECALCIFEROL (D3) 1,000 UNIT (25 MCG) TABLET PO SCH (09:22)
[2020-07-31] MEDS: GLIMEPIRIDE 1 MG TABLET PO SCH (09:23)
[2020-07-31] MEDS: OXYCODONE HCL IR 5 MG TABLET PO SCH ×2 (09:23→17:18)
[2020-07-31] MEDS: CETIRIZINE 10 MG TABLET PO SCH (09:24)
[2020-07-31] MEDS: AMLODIPINE BESYLATE 5 MG TABLET PO SCH (09:24)
[2020-07-31] MEDS: ALLOPURINOL 300 MG TABLET PO SCH (09:24)
[2020-07-31] MEDS: CYCLOSPORINE 0.05% OPH EMULSIO 0.4 ML DROPERETTE OU SCH ×2 (09:25→22:17)
[2020-07-31] MEDS: CARBOXYMETHYLCELLULOSE SOD 0.5% 0.4 ML DROPERETTE OU PRN (09:25)
[2020-07-31] MEDS: ENOXAPARIN SODIUM INJ 40 MG/0.4 ML DISP.SYRIN SUBCUT SCH (09:40)
--- NOTE | 2020-07-31 16:15 | PDOC TRANSFER SUMMARY ---
Impression - Admit/DC Date/PCP Admission Date/Primary Care Provider: 07/23/20 13:28 NAYLA GEE MD Discharge Date: 07/31/20 - Discharge Diagnosis (1) Urinary tract infection Is this a current diagnosis for this admission?: Yes (2) Metabolic encephalopathy Is this a current diagnosis for this admission?: Yes (3) Type 2 diabetes mellitus Is this a current diagnosis for this admission?: Yes (4) Morbid (severe) obesity due to excess calories Is this a current diagnosis for this admission?: Yes (5) Persistent vomiting Is this a current diagnosis for this admission?: Yes - Additional Information Resuscitation Status: Full Code Referrals: [facility] [Outside] NAYLA GEE MD [Primary Care Provider] - Follow up as needed Prescriptions: Dapagliflozin Propanediol [Farxiga] 10 mg PO DAILY #95333 tablet Home Medications: Allopurinol [Zyloprim 300 mg Tablet] 300 mg PO DAILY 11/12/19 Amlodipine Besylate [Norvasc 5 mg Tablet] 5 mg PO DAILY 11/12/19 Benzocaine/Menthol [Chloraseptic Sore Throat Lozenge] 1 lozenge PO Q1HP PRN 11/12/19 Bisacodyl [Dulcolax 5 mg Tablet] 5 mg PO DAILYP PRN 11/12/19 Budesonide/Formoterol Fumarate [Symbicort HFA 160-4.5 mcg Inhaler 6 gm] 2 puff IH BID 11/12/19 Calcium Carbonate [Calcium] 600 mg PO DAILY 11/12/19 Carboxymethylcellulose Sodium [Refresh Celluvisc Drops] 1 drop OU QHS 11/12/19 Carboxymethylcellulose Sodium [Refresh Tears] 1 drop OU QIDP PRN 11/12/19 Cetirizine HCl [Zyrtec 10 mg Tablet] 10 mg PO DAILY 11/12/19 Cholecalciferol (Vitamin D3) [Vitamin D3 1000 Unit Tablet] 4,000 unit PO DAILY 11/12/19 Cranberry Fruit Extract [Cranberry 250 mg Capsule] 250 mg PO QAM 11/12/19 Cyclosporine 0.05% Oph Emulsio [Restasis 0.05% Oph Emulsion Pf 0.4 ml] 1 drop OU Q12 11/12/19 Furosemide [Lasix 40 mg Tablet] 40 mg PO BID 11/12/19 Hydroxychloroquine Sulfate [Plaquenil 200 mg Tablet] 200 mg PO Q12 11/12/19 Insulin Glargine,Hum.rec.anlog [Lantus Insulin 100 Unit/1 ml 10 ml] 5 units SQ QHS 11/12/19 Levothyroxine Sodium [Synthroid 0.088 mg Tablet] 0.088 mg PO Q6AM 11/12/19 Menthol/Camphor [Sarna Original 0.5%-0.5% Lotn] 1 applic TOP QIDP PRN 11/12/19 Metoprolol Succinate [Toprol Xl 25 mg Tab.sr] 25 mg PO QHS 11/12/19 Mineral Oil/Hydrophil Petrolat [Aquaphor Healing Ointment] 1 applic TOP BID 11/12/19 Mirabegron [Myrbetriq] 25 mg PO QAM 11/12/19 Montelukast Sodium [Singulair 10 mg Tablet] 10 mg PO QHS 11/12/19 Naloxegol Oxalate [Movantik 25 mg Tablet] 25 mg PO QAM 11/12/19 Ondansetron [Zofran Odt 4 mg Tablet] 4 mg PO Q6HP PRN 11/12/19 Pantoprazole Sodium [Protonix [address] Tablet] 40 mg PO Q12 11/12/19 Pimecrolimus 1 applic TOP BID 11/12/19 Polyvinyl Alcohol [Liquitears 1.4% Ophth Soln 15 ml] 1 drop OU QIDP PRN 11/12/19 Potassium Chloride [Klor-Con 10 Meq Tablet ER] 10 meq PO Q12 11/12/19 Sennosides/Docusate Sodium [Senna Plus 8.6-50 mg Tablet] 1 tab PO BID 11/12/19 Sodium Chloride [[place] Nasal Marfa 44 ml Bottle] 1 spray NASL DAILYP PRN 11/12/19 Fluconazole [Diflucan] 150 mg PO FR@2200 07/06/20 Menthol [Biofreeze] 1 applic TP Q6HP PRN 07/06/20 Insulin Lispro [Humalog Insulin (Lispro) 100 unit/mL] 0 unit SUBCUT .SLD SCALE 07/22/20 Dapagliflozin Propanediol [Farxiga] 10 mg PO DAILY #18981 tablet 10/21/20 Enoxaparin Sodium [Lovenox Inj 40 mg/0.4 ml Disp.syrin] 40 mg SUBCUT DAILY disp.syrin 07/31/20 Oxycodone HCl [Oxy-Ir 5 mg Tablet] 5 mg PO BID #0 07/31/20 Oxycodone HCl [Oxycontin] 10 mg PO Q8 #0 07/31/20 Pregabalin 75 mg PO Q8 #0 07/31/20 History of Present Illiness History of Present Illness: NETTA RICO is a 70 year old female, She has multiple comorbid conditions, she was just discharged from this hospital on July 17, 2020, she is a resident of long-term care facility, [facility],She was transferred from the [facility] to the emergency room for evaluation of persistent stuporous state.I saw patient yesterday in the residential at that time she was extremely stuporous, she did not respond to verbal command but she grimaces on applying sternal pressure, we did routine blood work including hemogram and comprehensive metabolic panel, the electrolytes were normal but she was found to have leukocytosis I prescribed for patient to receive Rocephin intramuscularly or intravenously but because of patient persistent stuporous state the residential staff and the family felt patient needed to be transferred back to the hospital, this is a second ED referral since discharge on 07/27/2020. She has a history of recurrent urinary tract infection partly because she has chronic indwelling suprapubic catheter, diabetes ,morbidly obese ,sedentary Lifestyle all there conditions places her at increased risk of recurrent UTI. In the emergency room she was found to have leukocytosis with UTI, she had a long list of allergy, last time she was admitted she was treated with aztreonam Hospital Course Hospital Course: Patient was admitted for the management of recurrent UTI, metabolic encephalopathy, persistent vomiting. She was seen by the surgeon she underwent upper endoscopy, no acute pathology was found except for some mild polyp in the stomach. Patient had a lap band which could be a factor in the etiology of the persistent vomiting, she needs to see the surgeon that placed the LAP-BAND for revision of the LAP-BAND, the surgeon is out of [place], the residential staff need to arrange for the patient to get appointment with the surgeon for revision of the LAP-BAND. She was treated successfully with IV antibiotic Physical Exam Vital Signs: Temp Pulse Resp BP Pulse Ox 97.2 F 77 20 140/59 H 100 07/31/20 15:36 07/31/20 15:36 07/31/20 15:36 07/31/20 15:36 07/31/20 15:36 Intake & Output 07/30/20 07/31/20 08/01/20 06:59 06:59 06:59 Intake Total 2810 3448 Output Total 1700 1800 Balance 1110 1648 Weight 155 kg 155 kg General appearance: PRESENT: no acute distress Eye exam: PRESENT: PERRLA Respiratory exam: PRESENT: clear to auscultation pennie Cardiovascular exam: PRESENT: +S1, +S2 GI/Abdominal exam: PRESENT: soft Neurological exam: PRESENT: alert Results Laboratory Results: WBC 4.3 10^3/uL (4.0-10.5) 07/27/20 10:30 RBC 3.80 10^6/uL (3.72-5.28) 07/27/20 10:30 Hgb 11.7 g/dL (12.0-15.5) L 07/27/20 10:30 Hct 33.8 % (36.0-47.0) L 07/27/20 10:30 MCV 89 fl (80-97) 07/27/20 10:30 MCH 30.8 pg (27.0-33.4) 07/27/20 10:30 MCHC 34.6 g/dL (32.0-36.0) 07/27/20 10:30 RDW 15.3 % (11.5-14.0) H 07/27/20 10:30 Plt Count 183 10^3/uL (150-450) 07/27/20 10:30 Lymph % (Auto) 32.2 % (13-45) 07/27/20 10:30 [place] % (Auto) 11.9 % (3-13) 07/27/20 10:30 Eos % (Auto) 3.3 % (0-6) 07/27/20 10:30 Baso % (Auto) 0.7 % (0-2) 07/27/20 10:30 Absolute Neuts (auto) 2.2 10^3/uL (1.7-8.2) 07/27/20 10:30 Absolute Lymphs (auto) 1.4 10^3/uL (0.5-4.7) 07/27/20 10:30 Absolute Monos (auto) 0.5 10^3/uL (0.1-1.4) 07/27/20 10:30 Absolute Eos (auto) 0.1 10^3/uL (0.0-0.6) 07/27/20 10:30 Absolute Basos (auto) 0.0 10^3/uL (0.0-0.2) 07/27/20 10:30 Seg Neutrophils % 51.9 % (42-78) 07/27/20 10:30 Platelet Estimate Cancelled 07/21/20 20: VBG pH 7.44 (7.30-7.42) H 07/21/20 21: VBG pCO2 46.3 mmHg (35-63) 07/21/20 21:17 VBG HCO3 30.4 mmol/L (20-32) 07/21/20 21:17 VBG Base Excess 5.3 mmol/L 07/21/20 21:17 Sodium 135.1 mmol/L (137-145) L 07/27/20 10:30 Potassium 3.6 mmol/L (3.6-5.0) 07/27/20 10:30 Chloride 102 mmol/L (98-107) 07/27/20 10:30 Carbon Dioxide 29 mmol/L (22-30) 07/27/20 10:30 Anion Gap 4 (5-19) L 07/27/20 10:30 BUN 6 mg/dL (7-20) L 07/27/20 10:30 Creatinine 0.48 mg/dL (0.52-1.25) L 07/27/20 10:30 Est GFR ( Amer) > 60 (>60) 07/27/20 10:30 Est GFR (MDRD) Non-Af > 60 (>60) 07/27/20 10:30 Glucose 164 mg/dL (75-110) H 07/27/20 10:30 POC Glucose 160 mg/dL (70-110) H 07/31/20 15:35 Hemoglobin A1c % 7.8 % (4.7-6.0) H 07/23/20 06:30 Calcium 8.2 mg/dL (8.4-10.2) L 07/27/20 10:30 Total Bilirubin 0.6 mg/dL (0.2-1.3) 07/23/20 06:30 Direct Bilirubin 0.4 mg/dL (0.0-0.4) 07/23/20 06:30 Neonat Total Bilirubin Not Reportable 07/23/20 06:30 Neonat Direct Bilirubin Not Reportable 07/23/20 06:30 Neonat Indirect Bili Not Reportable 07/23/20 06:30 AST 18 U/L (14-36) 07/23/20 06:30 ALT 7 U/L (<35) 07/23/20 06:30 Alkaline Phosphatase 75 U/L (38-126) 07/23/20 06:30 Troponin I < 0.012 ng/mL 07/21/20 21:17 Total Protein 5.6 g/dL (6.3-8.2) L 07/23/20 06:30 Albumin 2.9 g/dL (3.5-5.0) L 07/23/20 06:30 TSH 3.49 uIU/mL (0.47-4.68) 07/21/20 20:17 Free T4 1.33 ng/dL (0.78-2.19) 07/21/20 20:17 Urine Color YELLOW 07/21/20 21:55 Urine Appearance CLOUDY 07/21/20 21:55 Urine pH 8.0 (5.0-9.0) 07/21/20 21:55 Ur Specific Russell 1.012 07/21/20 21:55 Urine Protein 100 mg/dL (NEGATIVE) H 07/21/20 21:55 Urine Glucose (UA) NEGATIVE mg/dL (NEGATIVE) 07/21/20 21:55 Urine Ketones NEGATIVE mg/dL (NEGATIVE) 07/21/20 21:55 Urine Blood MODERATE (NEGATIVE) H 07/21/20 21:55 Urine Nitrite NEGATIVE (NEGATIVE) 07/21/20 21:55 Urine Bilirubin NEGATIVE (NEGATIVE) 07/21/20 21:55 Urine Urobilinogen NEGATIVE mg/dL (<2.0) 07/21/20 21:55 Ur Leukocyte Esterase LARGE (NEGATIVE) H 07/21/20 21:55 Urine WBC (Auto) >182 /HPF 07/21/20 21:55 Urine RBC (Auto) 72 /HPF 07/21/20 21:55 U Hyaline Cast (Auto) 4 /LPF 07/21/20 21:55 Urine Bacteria (Auto) TRACE /HPF 07/21/20 21:55 Squamous Epi Cells Auto 6 /HPF 07/21/20 21:55 Urine Mucus (Auto) RARE /LPF 07/21/20 21:55 Urine Ascorbic Acid NEGATIVE (NEGATIVE) 07/21/20 21:55 SARS-CoV-2 (PCR) NEGATIVE (NEGATIVE) 07/28/20 23:00 Slides for Path Review Cancelled 07/21/20 20:17 07/21/20 21:17 Troponin I < 0.012 Impressions: Chest X-Ray 07/21/20 20:40 IMPRESSION: 1. Low lung volumes with compressive changes. The possibility of a left basilar opacity and small left basilar effusion are not excluded. Clinical correlation is advised. 2. Persistent enlargement of the cardiac silhouette. Plan Plan of Treatment: The residential staff should get appointment with the surgeon Dr. Acuña in [place], [place] for revision of the LAP-BAND that was placed years ago. The LAP-BAND seems to not be functioning and it could be the reason for the persistent vomiting and not necessarily UTI Patient is susceptible to recurrent UTI, patient should be Bath regularly in the residential at least 5 times a week Otherwise she is at increased risk of sepsis Stroke Is this a Stroke Patient?: No Acute Heart Failure Is this a Heart Failure Patient?: No
[2020-07-31] MEDS: METOPROLOL SUCCINATE 25 MG TAB.SR.24H PO SCH (22:17)
[2020-08-01] MEDS: LEVOTHYROXINE SODIUM 0.088 MG TABLET PO SCH (05:55)
[2020-08-01] MEDS: OXYCODONE HCL SR 10 MG TABLET PO SCH ×2 (05:56→13:04)
[2020-08-01] MEDS: BACLOFEN 10 MG TABLET PO SCH ×2 (05:56→11:13)
[2020-08-01] MEDS: PREGABALIN 75 MG CAPSULE PO SCH ×2 (05:56→13:04)
[2020-08-01] MEDS: INSULIN LISPRO 100 UNIT/ML 3 ML VIAL SUBCUT SCH ×2 (07:48→11:13)
[2020-08-01] MEDS: ENOXAPARIN SODIUM INJ 40 MG/0.4 ML DISP.SYRIN SUBCUT SCH (09:25)
[2020-08-01] MEDS: OXYCODONE HCL IR 5 MG TABLET PO SCH (09:39)
[2020-08-01] MEDS: ALLOPURINOL 300 MG TABLET PO SCH (09:39)
[2020-08-01] MEDS: AMLODIPINE BESYLATE 5 MG TABLET PO SCH (09:40)
[2020-08-01] MEDS: GLIMEPIRIDE 1 MG TABLET PO SCH (09:40)
[2020-08-01] MEDS: CETIRIZINE 10 MG TABLET PO SCH (09:41)
[2020-08-01] MEDS: CHOLECALCIFEROL (D3) 1,000 UNIT (25 MCG) TABLET PO SCH (09:41)
[2020-08-01] MEDS: CARBOXYMETHYLCELLULOSE SOD 0.5% 0.4 ML DROPERETTE OU PRN (10:25)
[2020-08-01] MEDS: CYCLOSPORINE 0.05% OPH EMULSIO 0.4 ML DROPERETTE OU SCH (10:25)
[2020-08-01 10:58] VITALS: BP 141/55
== END 2020-08-01 14:23 | DRG 698 ==
LOC: ER 20:04 → INTOOBSV 07-22 00:15 → EH 07-22 00:15 → 4N 07-22 03:40 → OBSVTOIN 07-23 13:28
PROVIDERS: ADMIT Internal Medicine; ATTEND Internal Medicine
PROC: 0DB48ZX Excision of Esophagogastric Junction, Via Natural or Artificial Opening Endoscopic, Diagnostic (ICD-10-PCS; 2020-07-29)
PROC: 0DB68ZX Excision of Stomach, Via Natural or Artificial Opening Endoscopic, Diagnostic (ICD-10-PCS; principal; 2020-07-29 09:30)
DX: T83.511A Infection and inflammatory reaction due to indwelling urethral catheter, initial encounter (principal); G93.41 Metabolic encephalopathy; Z68.43 Body mass index [BMI] 50.0-59.9, adult; K95.09 Other complications of gastric band procedure; I13.0 Hypertensive heart and chronic kidney disease with heart failure and stage 1 through stage 4 chronic kidney disease, or unspecified chronic kidney disease; N39.0 Urinary tract infection, site not specified; Y84.6 Urinary catheterization as the cause of abnormal reaction of the patient, or of later complication, without mention of misadventure at the time of the procedure; E66.01 Morbid (severe) obesity due to excess calories; R11.15 Cyclical vomiting syndrome unrelated to migraine; I50.9 Heart failure, unspecified; E03.9 Hypothyroidism, unspecified; F32.9 Major depressive disorder, single episode, unspecified; E11.22 Type 2 diabetes mellitus with diabetic chronic kidney disease; M06.9 Rheumatoid arthritis, unspecified; M79.7 Fibromyalgia; K31.7 Polyp of stomach and duodenum; B96.20 Unspecified Escherichia coli [E. coli] as the cause of diseases classified elsewhere; B96.5 Pseudomonas (aeruginosa) (mallei) (pseudomallei) as the cause of diseases classified elsewhere; B95.4 Other streptococcus as the cause of diseases classified elsewhere; J44.9 Chronic obstructive pulmonary disease, unspecified; N18.2 Chronic kidney disease, stage 2 (mild); Z79.899 Other long term (current) drug therapy; Z79.4 Long term (current) use of insulin; Z79.890 Hormone replacement therapy; Z88.8 Allergy status to other drugs, medicaments and biological substances; Z88.0 Allergy status to penicillin; Z88.1 Allergy status to other antibiotic agents; Z98.84 Bariatric surgery status; Z87.891 Personal history of nicotine dependence
CPT/HCPCS: 36415; 43239; 71045; 731; 80048; 80053; 81001; 82803; 82962; 83036; 84439; 84443; 84484; 85025; 87040; 87070; 87077; 87086; 87088; 87150; 87186; 87635; 88305; 93005; 93010; 96360; 99285; C9803; G0378; J0692; J1815; J2250; J2704; J3490; J7030; J7060; J7120; S0119

== ENCOUNTER → 2020-09-27 | Day surgery (SDC) | payer MEDICARE, MEDICAID ==
[2020-09-27 13:14] VITALS: BP 118/50
== END ==
LOC: END 12:40
PROVIDERS: ATTEND Internal Medicine Gastroenterology
DX: Z53.8 Procedure and treatment not carried out for other reasons (principal)
CPT/HCPCS: 82962

== ENCOUNTER 2020-10-26 10:37 | Inpatient (IN) | payer MEDICARE, MEDICAID ==
[2020-10-26 11:24] LABS: APPEARANCE,URINE CLEAR; BILIRUBIN,URINE NEGATIVE (NEGATIVE); COLOR,URINE YELLOW; GLUCOSE, URINE >=500 mg/dL (NEGATIVE); KETONES,URINE NEGATIVE (NEGATIVE); LEUKOCYTE ESTERASE,URINE SMALL (NEGATIVE); NITRITE,URINE NEGATIVE (NEGATIVE); PROTEIN,URINE 100 mg/dL (NEGATIVE); URINE SPECIFIC GRAVITY 1.015; UROBILINOGEN,URINE NEGATIVE mg/dL (<2.0)
[2020-10-26] MEDS ORDERED: AZTREONAM INJ 1 GM VIAL IV ONE (11:50)
[2020-10-26] MEDS ORDERED: LINEZOLID 600 MG/300 ML RTUPB IV ONE (11:50)
--- NOTE | 2020-10-26 11:58 | ER Document Report ---
ED General - General Chief Complaint: Fever Stated Complaint: AMS/FEVER Time Seen by Provider: 10/26/20 11:27 Primary Care Provider: NAYLA GEE MD [Primary Care Provider] - Follow up as needed TRAVEL OUTSIDE OF THE [place] IN LAST 30 DAYS: No - HPI Notes: Chief complaint: Fever and altered mental status History of present illness: 70-year-old female [facility] ([facility]) patient follow-up with Dr. Gee seen at this time for fever and altered mental status. Patient is reportedly positive for Covid based on recent testing. She has had multiple prior hospitalizations for urinary tract infection with altered mental status the most recent of which was in July 2020. Similar presentation today. Limited history available from the patient due to altered mental status. [facility] records reviewed and [facility] [place] records reviewed. She is on full CODE STATUS. Temperature was 103 at fci this morning. 99.7 axillary on arrival here. Patient has a chronic indwelling Sales catheter. She has history of anaphylactic reaction to penicillin. She is also allergic to Cipro. Current medications: Allopurinol [Zyloprim 300 mg Tablet] 300 mg PO DAILY 11/12/19 Amlodipine Besylate [Norvasc 5 mg Tablet] 5 mg PO DAILY 11/12/19 Benzocaine/Menthol [Chloraseptic Sore Throat Lozenge] 1 lozenge PO Q1HP PRN 11/12/19 Bisacodyl [Dulcolax 5 mg Tablet] 5 mg PO DAILYP PRN 11/12/19 Budesonide/Formoterol Fumarate [Symbicort HFA 160-4.5 mcg Inhaler 6 gm] 2 puff IH BID 11/12/19 Calcium Carbonate [Calcium] 600 mg PO DAILY 11/12/19 Carboxymethylcellulose Sodium [Refresh Celluvisc Drops] 1 drop OU QHS 11/12/19 Carboxymethylcellulose Sodium [Refresh Tears] 1 drop OU QIDP PRN 11/12/19 Cetirizine HCl [Zyrtec 10 mg Tablet] 10 mg PO DAILY 11/12/19 Cholecalciferol (Vitamin D3) [Vitamin D3 1000 Unit Tablet] 4,000 unit PO DAILY 11/12/19 Cranberry Fruit Extract [Cranberry 250 mg Capsule] 250 mg PO QAM 11/12/19 Cyclosporine 0.05% Oph Emulsio [Restasis 0.05% Oph Emulsion Pf 0.4 ml] 1 drop OU Q12 11/12/19 Furosemide [Lasix 40 mg Tablet] 40 mg PO BID 11/12/19 Hydroxychloroquine Sulfate [Plaquenil 200 mg Tablet] 200 mg PO Q12 11/12/19 Insulin Glargine,Hum.rec.anlog [Lantus Insulin 100 Unit/1 ml 10 ml] 5 units SQ QHS 11/12/19 Levothyroxine Sodium [Synthroid 0.088 mg Tablet] 0.088 mg PO Q6AM 11/12/19 Menthol/Camphor [Sarna Original 0.5%-0.5% Lotn] 1 applic TOP QIDP PRN 11/12/19 Metoprolol Succinate [Toprol Xl 25 mg Tab.sr] 25 mg PO QHS 11/12/19 Mineral Oil/Hydrophil Petrolat [Aquaphor Healing Ointment] 1 applic TOP BID 11/12/19 Mirabegron [Myrbetriq] 25 mg PO QAM 11/12/19 Montelukast Sodium [Singulair 10 mg Tablet] 10 mg PO QHS 11/12/19 Naloxegol Oxalate [Movantik 25 mg Tablet] 25 mg PO QAM 11/12/19 Ondansetron [Zofran Odt 4 mg Tablet] 4 mg PO Q6HP PRN 11/12/19 Pantoprazole Sodium [Protonix [address] Tablet] 40 mg PO Q12 11/12/19 Pimecrolimus 1 applic TOP BID 11/12/19 Polyvinyl Alcohol [Liquitears 1.4% Ophth Soln 15 ml] 1 drop OU QIDP PRN 11/12/19 Potassium Chloride [Klor-Con 10 Meq Tablet ER] 10 meq PO Q12 11/12/19 Sennosides/Docusate Sodium [Senna Plus 8.6-50 mg Tablet] 1 tab PO BID 11/12/19 Sodium Chloride [[place] Nasal [place] 44 ml Bottle] 1 spray NASL DAILYP PRN 11/12/19 Menthol [Biofreeze] 1 applic TP Q6HP PRN 07/06/20 Insulin Lispro [Humalog Insulin (Lispro) 100 unit/mL] 0 unit SUBCUT .SLD SCALE 07/22/20 Dapagliflozin Propanediol [Farxiga] 10 mg PO DAILY #90094 tablet 07/31/20 Enoxaparin Sodium [Lovenox Inj 40 mg/0.4 ml Disp.syrin] 40 mg SUBCUT DAILY disp.syrin 07/31/20 Oxycodone HCl [Oxy-Ir 5 mg Tablet] 5 mg PO BID #0 07/31/20 Oxycodone HCl [Oxycontin] 10 mg PO Q8 #0 07/31/20 Pregabalin 75 mg PO Q8 #0 07/31/20 Allergies/Adverse Reactions: ciprofloxacin [From Cipro] Allergy (Severe, Verified 07/19/20 03:58) Anaphylaxis Penicillins Allergy (Severe, Verified 07/19/20 03:58) Anaphylaxis adhesive tape [Adhesive Tape] Adverse Reaction (Severe, Verified 07/19/20 03:58) BLISTERS, SKIN BECOMES RAW indomethacin [From Indocin] Adverse Reaction (Severe, Verified 07/19/20 03:58) CAUSES SWELLING AND INFLAMMATION meperidine HCl [From Demerol] Adverse Reaction (Severe, Verified 07/19/20 03:58) Hallucinations - Related Data Allergies/Adverse Reactions: ciprofloxacin [From Cipro] Allergy (Severe, Verified 07/19/20 03:58) Anaphylaxis Penicillins Allergy (Severe, Verified 07/19/20 03:58) Anaphylaxis adhesive tape [Adhesive Tape] Adverse Reaction (Severe, Verified 07/19/20 03:58) BLISTERS, SKIN BECOMES RAW indomethacin [From Indocin] Adverse Reaction (Severe, Verified 07/19/20 03:58) CAUSES SWELLING AND INFLAMMATION meperidine HCl [From Demerol] Adverse Reaction (Severe, Verified 07/19/20 03:58) Hallucinations Past Medical History - General Information source: Patient, [facility] Records, Outside Facility Records Cannot obtain history due to: Altered mental status - Social History Smoking Status: Unknown if Ever Smoked Frequency of alcohol use: None Drug Abuse: None Family History: Reviewed & Not Pertinent, Hypertension Patient has homicidal ideation: No - Past Medical History Cardiac Medical History: Reports: Hx Congestive Heart Failure, Hx Coronary Artery Disease - vascular probs pennie legs, Hx Hypercholesterolemia, Hx Hypertension, Hx Peripheral Vascular Disease, Hx Heart Murmur Denies: Hx Heart Attack Pulmonary Medical History: Reports: Hx Asthma - severe,neb,inhaler, Hx Bronchitis, Hx COPD Denies: Hx Pneumonia, Hx Respiratory Failure, Hx Sleep Apnea, Hx Tuberculosis Neurological Medical History: Denies: Hx Cerebrovascular Accident, Hx Seizures, Hx Parkinson's Disease Endocrine Medical History: Reports: Hx Diabetes Mellitus Type 2, Hx Hypothyroidism Renal/ Medical History: Reports: Hx Ovarian Cysts, Other - Chronic indwelling bladder catheter. Recurrent UTIs.. Denies: Hx Peritoneal Dialysis GI Medical History: Reports: Hx Gastroesophageal Reflux Disease, Hx Hiatal Hernia, Hx Irritable Bowel. Denies: Hx Pancreatitis Musculoskeletal Medical History: Reports Hx Arthritis - RA, Reports Hx Fibromyalgia, Denies Hx Systemic Lupus Erythematosus Psychiatric Medical History: Reports: Hx Depression Traumatic Medical History: Reports: Hx Fractures Past Surgical History: Reports: Hx Cholecystectomy, Hx Gastric Bypass Surgery - Lap Band, post in stomach for lap band , Hx Hysterectomy, Hx Orthopedic Surgery - right hip x3, left knee x1, Other - LAP-BAND procedures - Immunizations Hx Diphtheria, Pertussis, Tetanus Vaccination: Yes Hx Pneumococcal Vaccination: 10/11/12 Review of Systems - Review of Systems -: Yes ROS unobtainable due to patient's medical condition Physical Exam - Vital signs Vitals: Pulse Resp BP Pulse Ox 74 18 178/82 H 94 10/26/20 10:37 10/26/20 10:37 10/26/20 10:37 10/26/20 10:37 - Notes Notes: GENERAL: Morbidly obese elderly female with altered mental status. SKIN: Cool to touch. Dry. Good turgor no rashes. HEAD: Normocephalic atraumatic. EYES: PERRLA. EOMI. Conjunctivae and sclerae clear. EARS: CANALS AND TMS CLEAR. NOSE: CLEAR. MOUTH: Tacky oral mucosa. Good dentition. No stridor or edema. No drooling. NECK: Supple. No masses or thyromegaly. No adenopathy. Carotids 2+ without bruits. No JVD. BACK: Symmetrical without tenderness. CHEST: Respirations unlabored. Breath sounds clear and symmetrical. HEART: Regular rhythm. No murmur gallop or rub. ABDOMEN: Morbidly obese. Soft nontender without masses, organomegaly or rebound. Bowel sounds normally active. No bruits. GENITALIA: Sales catheter present. EXTREMITIES: 3+ brawny edema both lower legs. No calf tenderness. Cap refill less than 1.5 seconds. Dorsalis pedis and posterior tibial pulses 3+ and symmetrical. NEUROLOGICAL: GCS 14. Eyes open spontaneously. Follows commands to instrument tech my fingers. She is oriented to person and place but not to day or date. Normal gait. Holding speech. Cranial nerves II through XII intact. Moves all 4 extremities symmetrically on command. Course - Re-evaluation Re-evalutation: 10/26/20 18:11 [facility] patient with known Covid infection transferred to the emergency department because of altered mental status and high fever. This lady is quite chronically ill at baseline. Her oxygenation is good. Her blood pressure is satisfactory. Her urine appears to be infected. She has a suprapubic catheter. She also has some bibasilar infiltrates present on the chest x-ray. Blood cultures were drawn. The patient's been given IV Decadron. She is received IV antibiotics. Case was reviewed with her primary care provider Dr. Gee who will admit to Covid floor. 10/26/20 18:12 - Vital Signs Vital signs: Temp Pulse Resp BP Pulse Ox 98.5 F 74 15 141/75 H 96 10/26/20 15:01 10/26/20 10:37 10/26/20 17:01 10/26/20 17:01 10/26/20 17:01 - Laboratory Results Result Diagrams: 10/26/20 14:30 10/26/20 14:30 Laboratory Results Interpreted: 10/26/20 10/26/20 10/26/20 10:45 14:30 14:30 RDW 15.6 H Plt Count 143 L Seg Neuts % (Manual) 84 H Band Neutrophils % 6 H Lymphocytes % (Manual) 7 L Abs Neuts (Manual) 8.6 H VBG pCO2 VBG HCO3 Carbon Dioxide 34 H Glucose 278 H AST 47 H Urine Protein 100 H Urine Glucose (UA) >=500 H Urine Blood SMALL H Ur Leukocyte Esterase SMALL H 10/26/20 15:25 RDW Plt Count Seg Neuts % (Manual) Band Neutrophils % Lymphocytes % (Manual) Abs Neuts (Manual) VBG pCO2 63.4 H VBG HCO3 33.7 H Carbon Dioxide Glucose AST Urine Protein Urine Glucose (UA) Urine Blood Ur Leukocyte Esterase Critical Laboratory Results Reviewed: Yes Attending or Supervising Physician who Reviewed Labs: MARIA E RICH - Radiology Results Radiology Results Interpreted: 01/16/21 18:13 Chest X-Ray 10/26/20 11:49 IMPRESSION: Multifocal bilateral pneumonia Critical Radiology Results Reviewed: Yes Attending or Supervising Physician who Reviewed Radiology: MARIA E RICH - EKG Interpretation by Me Additional EKG results interpreted by me: 10/26/20 12:20 Twelve-lead EKG reviewed by me contemporaneously: 1125 hrs. Indication for study: Altered mental status Rhythm: Normal sinus Rate: 87 Intervals: VA interval is prolonged 229 ms QRS axis: -[address]/T wave changes: Nonspecific Comparison with prior tracing: Comparison with prior EKG 07/21/2020 shows no significant interval change Interpretation: First-degree AV block, left axis deviation Discharge - Discharge Clinical Impression: Altered mental status, Pneumonia due to COVID-19 virus Urinary tract infection Qualifiers: Urinary tract infection type: catheter-associated UTI Indwelling urinary catheter type: indwelling urethral catheter Encounter type: initial encounter Qualified Code(s): T83.511A - Infection and inflammatory reaction due to indwelling urethral catheter, initial encounter Condition: Fair Disposition: ADMITTED INPATIENT Admitting Provider: Stephanie Unit Admitted: Medical Floor Referrals: NAYLA GEE MD [Primary Care Provider] - Follow up as needed
--- NOTE | 2020-10-26 12:21 | RADIOLOGY REPORT (SQ) ---
EXAM DESCRIPTION: CHEST SINGLE VIEW IMAGES COMPLETED DATE/TIME: 10/26/2020 12:04 pm REASON FOR STUDY: fever, Covid + COMPARISON: Chest films 07/06/2020, 07/21/2020 EXAM PARAMETERS: NUMBER OF VIEWS: One view. TECHNIQUE: Single frontal radiographic view of the chest acquired. RADIATION DOSE: NA LIMITATIONS: None. FINDINGS: LUNGS AND PLEURA: Patchy diffuse bilateral airspace disease is present right greater than left. Chronic pleural thickening is present. No gross pleural effusion or pneumothorax. MEDIASTINUM AND HILAR STRUCTURES: No masses. Contour normal. HEART AND VASCULAR STRUCTURES: No cardiomegaly BONES: No acute findings. HARDWARE: None in the chest. OTHER: No other significant finding. IMPRESSION: Multifocal bilateral pneumonia TECHNICAL DOCUMENTATION: JOB ID: [id number] 2010 [employer]- All Rights Reserved Reading location - IP/workstation name: [email or web address]
[2020-10-26] MEDS ORDERED: AZTREONAM INJ 1 GM VIAL ONE ×2 (14:52→22:18)
[2020-10-26 15:11] LABS: HEMATOCRIT 40.3 % (36.0-47.0); HEMOGLOBIN 13.4 g/dL (12.0-15.5); INTERNATIONAL RATION (INR) 0.99; MEAN CORPUSCULAR HEMOGLOBIN 29.8 pg (27.0-33.4); MEAN CORPUSCULAR HGB CONC 33.3 g/dL (32.0-36.0); MEAN CORPUSCULAR VOLUME 90 fl (80-97); PLATELET COUNT 143 10^3/uL (150-450); PROTHROMBIN TIME 13.3 SEC (11.4-15.4); RED CELL DISTRIBUTION WIDTH 15.6 % (11.5-14.0); WHITE BLOOD COUNT 9.5 10^3/uL (4.0-10.5)
[2020-10-26 15:22] LABS: ALBUMIN 3.5 g/dL (3.5-5.0); ALKALINE PHOSPHATASE 85 U/L (38-126); ANION GAP 8 (5-19); ASPARTATE AMINO TRANSFERASE 47 U/L (14-36); BILIRUBIN,DIRECT 0.3 mg/dL (0.0-0.4); BILIRUBIN,TOTAL 0.4 mg/dL (0.2-1.3); BLOOD UREA NITROGEN 20 mg/dL (7-20); CALCIUM 8.5 mg/dL (8.4-10.2); CARBON DIOXIDE 34 mmol/L (22-30); CHLORIDE 98 mmol/L (98-107); GLUCOSE 278 mg/dL (75-110); POTASSIUM 4.4 mmol/L (3.6-5.0); TOTAL PROTEIN 6.4 g/dL (6.3-8.2)
[2020-10-26 15:31] LABS: ABSOLUTE LYMPHOCYTES# (MANUAL) 0.7 10^3/uL (0.5-4.7); ABSOLUTE MONOCYTES # (MANUAL) 0.3 10^3/uL (0.1-1.4); BAND NEUTROPHILS % (MANUAL) 6 % (3-5); BASOPHILS % (MANUAL) 0 % (0-2); EOSINOPHILS % (MANUAL) 0 % (0-6); LYMPHOCYTES % (MANUAL) 7 % (13-45); MONOCYTES % (MANUAL) 3 % (3-13); SEGMENTED NEUTROPHILS % (MAN) 84 % (42-78); TOTAL CELLS COUNTED 100
[2020-10-26 15:32] LABS: ANISOCYTOSIS SLIGHT; PLATELET COMMENT DECREASED
[2020-10-26 15:37] LABS: VENOUS BLOOD HCO3 33.7 mmol/L (20-32); VENOUS BLOOD PCO2 63.4 mmHg (35-63); VENOUS BLOOD PH 7.34 (7.30-7.42)
[2020-10-26] MEDS ORDERED: DEXAMETHASONE SOD PHOS INJ 10 MG/1 ML VIAL IV ONE (16:04)
[2020-10-26] MEDS ORDERED: AZITHROMYCIN 250 MG TABLET PO ONE (18:50)
[2020-10-26 19:48] LABS: HEMATOCRIT 39.4 % (36.0-47.0); HEMOGLOBIN 12.7 g/dL (12.0-15.5); MEAN CORPUSCULAR HEMOGLOBIN 28.9 pg (27.0-33.4); MEAN CORPUSCULAR HGB CONC 32.3 g/dL (32.0-36.0); MEAN CORPUSCULAR VOLUME 90 fl (80-97); PLATELET COUNT 125 10^3/uL (150-450); RED CELL DISTRIBUTION WIDTH 15.6 % (11.5-14.0); WHITE BLOOD COUNT 12.1 10^3/uL (4.0-10.5)
[2020-10-26 19:51] LABS: FIBRINOGEN 530 mg/dL (209-497); INTERNATIONAL RATION (INR) 0.98; PROTHROMBIN TIME 13.1 SEC (11.4-15.4)
[2020-10-26 19:52] LABS: PARTIAL THROMBOPLASTIN TIME 30.5 SEC (23.5-35.8)
--- NOTE | 2020-10-26 20:10 | PDOC H&P ---
History of Present Illness Admission Date/PCP: 10/26/20 18:20 NAYLA GEE MD History of Present Illness: NETTA RICO is a 70 year old female, She was diagnosed with SARS-CoV-2 infection, resident of the intermediate at [facility], the staff at the intermediate could not maintain adequate oxygenation, the oxygen saturation was in the low 70s, she was transferred to the emergency room for further evaluation and management.She has indwelling suprapubic urinary catheter, In the emergency room she has altered mental status, very stuporous, history was limited due her stuporous state.The chest x-ray that was done demonstrated patchy diffuse bilateral airspace disease right side more than the left Past Medical History Cardiac Medical History: Reports: Congestive Heart Failure, Coronary Artery Disease - vascular probs pennie legs, Hyperlipidema, Hypertension, Peripheral Vascular Disease, Heart Murmur Pulmonary Medical History: Reports: Asthma - severe,neb,inhaler, Bronchitis, Chronic Obstructive Pulmonary Disease (COPD) Endocrine Medical History: Reports: Diabetes Mellitus Type 2, Hypothyroidism, Obesity, Other - Obesity hypoventilation syndrome Renal/ Medical History: Reports: Other - Chronic indwelling bladder catheter. Recurrent UTIs. GI Medical History: Reports: Gastroesophageal Reflux Disease, Hiatal Hernia Musculoskeltal Medical History: Reports: Arthritis - RA, Fibromyalgia Psychiatric Medical History: Reports: Depression Past Surgical History Past Surgical History: Reports: Cholecystectomy, Gastric Bypass Surgery - Lap Band, post in stomach for lap band , Hysterectomy, Orthopedic Surgery - right hip x3, left knee x1, Other - LAP-BAND procedures Social History Smoking Status: Never Smoker Frequency of Alcohol Use: None Hx Recreational Drug Use: No Drugs: None Hx Prescription Drug Abuse: No Family History Family History: Reviewed & Not Pertinent, Hypertension Parental Family History Reviewed: Yes Children Family History Reviewed: Yes Sibling(s) Family History Reviewed.: Yes Medication/Allergy Home Medications: RX: Allopurinol [Zyloprim 300 mg Tablet] 300 mg PO DAILY 11/12/19 RX: Bisacodyl [Dulcolax 5 mg Tablet] 5 mg PO DAILYP PRN 11/12/19 RX: Budesonide/Formoterol Fumarate [Symbicort HFA 160-4.5 mcg Inhaler 6 gm] 2 puff IH BID 11/12/19 RX: Calcium Carbonate [Calcium] 600 mg PO QAM 11/12/19 RX: Carboxymethylcellulose Sodium [Refresh Tears] 1 drop OU QIDP PRN 11/12/19 RX: Cetirizine HCl [Zyrtec 10 mg Tablet] 10 mg PO DAILY 11/12/19 RX: Cholecalciferol (Vitamin D3) [Vitamin D3 1000 Unit Tablet] 4,000 unit PO DAILY 11/12/19 RX: Cranberry Fruit Extract [Cranberry 250 mg Capsule] 250 mg PO QAM 11/12/19 RX: Cyclosporine 0.05% Oph Emulsio [Restasis 0.05% Oph Emulsion Pf 0.4 ml] 1 drop OU Q12 11/12/19 RX: Furosemide [Lasix 40 mg Tablet] 40 mg PO BID 11/12/19 RX: Hydroxychloroquine Sulfate [Plaquenil 200 mg Tablet] 200 mg PO Q12 11/12/19 RX: Insulin Glargine,Hum.rec.anlog [Lantus Insulin 100 Unit/1 ml 10 ml] 5 units SQ QHS 11/12/19 RX: Levothyroxine Sodium [Synthroid 0.088 mg Tablet] 0.088 mg PO Q6AM 11/12/19 RX: Menthol/Camphor [Sarna Original 0.5%-0.5% Lotn] 1 applic TOP QIDP PRN 11/12/19 RX: Metoprolol Succinate [Toprol Xl 25 mg Tab.sr] 25 mg PO DAILY 11/12/19 RX: Mirabegron [Myrbetriq] 25 mg PO QAM 11/12/19 RX: Naloxegol Oxalate [Movantik 25 mg Tablet] 25 mg PO QAM 11/12/19 RX: Ondansetron [Zofran Odt 4 mg Tablet] 4 mg PO Q6HP PRN 11/12/19 RX: Pantoprazole Sodium [Protonix [address] Tablet] 40 mg PO Q12 11/12/19 RX: Polyvinyl Alcohol [Liquitears 1.4% Ophth Soln 15 ml] 1 drop OU QIDP PRN 11/12/19 RX: Potassium Chloride [Klor-Con 10 Meq Tablet ER] 10 meq PO Q12 11/12/19 RX: Sennosides/Docusate Sodium [Senna Plus 8.6-50 mg Tablet] 1 tab PO BID 11/12/19 RX: Sodium Chloride [[place] Nasal [place] 44 ml Bottle] 1 spray NASL DAILYP PRN 11/12/19 RX: Menthol [Biofreeze] 1 applic TP Q6HP PRN 07/06/20 RX: Insulin Lispro [Humalog Insulin (Lispro) 100 unit/mL] 0 unit SUBCUT .SLD SCALE 07/22/20 Montelukast Sodium [Singulair 10 mg Tablet] 10 mg PO QHS 09/27/20 RX: Pregabalin 150 mg PO Q8 09/27/20 Benzocaine/Menthol [Chloraseptic Sore Throat Lozenge] 1 lozenge PO Q1HP PRN 10/27/20 Dapagliflozin Propanediol [Farxiga] 10 mg PO QAM 10/27/20 Polyethylene Glycol 3350 [Miralax Powder 17 gm/Packet] 1 packet PO BID 10/27/20 RX: Buprenorphine HCl 4 mg PO QID 10/27/20 RX: Carboxymethylcellulose Sodium [Refresh Plus 0.5% Oph Soln 0.4 ml [place]] 1 drop OU QHS 10/27/20 Allergies/Adverse Reactions: ciprofloxacin [From Cipro] Allergy (Severe, Verified 07/19/20 03:58) Anaphylaxis Penicillins Allergy (Severe, Verified 07/19/20 03:58) Anaphylaxis adhesive tape [Adhesive Tape] Adverse Reaction (Severe, Verified 07/19/20 03:58) BLISTERS, SKIN BECOMES RAW indomethacin [From Indocin] Adverse Reaction (Severe, Verified 07/19/20 03:58) CAUSES SWELLING AND INFLAMMATION meperidine HCl [From Demerol] Adverse Reaction (Severe, Verified 07/19/20 03:58) Hallucinations Review of Systems ROS unobtainable: Due to mental status - She is altered mental status, state of stupor Physical Exam Vital Signs: Temp Pulse Resp BP Pulse Ox 98.5 F 74 15 141/75 H 96 10/26/20 15:01 10/26/20 10:37 10/26/20 17:01 10/26/20 17:01 10/26/20 17:01 Intake & Output 10/25/20 10/26/20 10/27/20 06:59 06:59 06:59 Intake Total 500 Balance 500 Weight 161.1 kg General appearance: PRESENT: obese, other - Patient is obese excessive somnolence but arousable with sternal pressure Respiratory exam: PRESENT: rhonchi Cardiovascular exam: PRESENT: +S1, +S2 GI/Abdominal exam: PRESENT: soft Neurological exam: PRESENT: altered Results Laboratory Results: 10/26/20 10/26/20 10/26/20 10:45 14:30 14:30 WBC 9.5 RBC 4.50 Hgb 13.4 Hct 40.3 MCV 90 MCH 29.8 MCHC 33.3 RDW 15.6 H Plt Count 143 L Seg Neutrophils % Not Reportable VBG pH VBG pCO2 VBG HCO3 VBG Base Excess Sodium 140.1 Potassium 4.4 Chloride 98 Carbon Dioxide 34 H Anion Gap 8 BUN 20 Creatinine 0.90 Est GFR ( Amer) > 60 Glucose 278 H Lactic Acid Calcium 8.5 Total Bilirubin 0.4 AST 47 H Alkaline Phosphatase 85 Total Protein 6.4 Albumin 3.5 Urine Color YELLOW Urine Appearance CLEAR Urine pH 7.0 Ur Specific [place] 1.015 Urine Protein 100 H Urine Glucose (UA) >=500 H Urine Ketones NEGATIVE Urine Blood SMALL H Urine Nitrite NEGATIVE Ur Leukocyte Esterase SMALL H Urine WBC (Auto) 24 Urine RBC (Auto) 9 10/26/20 10/26/20 10/26/20 14:40 15:25 17:40 WBC RBC Hgb Hct MCV MCH MCHC RDW Plt Count Seg Neutrophils % VBG pH 7.34 VBG pCO2 63.4 H VBG HCO3 33.7 H VBG Base Excess 6.0 Sodium Potassium Chloride Carbon Dioxide Anion Gap BUN Creatinine Est GFR ( Amer) Glucose Lactic Acid 1.4 1.0 Calcium Total Bilirubin AST Alkaline Phosphatase Total Protein Albumin Urine Color Urine Appearance Urine pH Ur Specific [place] Urine Protein Urine Glucose (UA) Urine Ketones Urine Blood Urine Nitrite Ur Leukocyte Esterase Urine WBC (Auto) Urine RBC (Auto) 10/26/20 19:25 WBC RBC Hgb Hct MCV MCH MCHC RDW Plt Count Seg Neutrophils % Not Reportable VBG pH VBG pCO2 VBG HCO3 VBG Base Excess Sodium Potassium Chloride Carbon Dioxide Anion Gap BUN Creatinine Est GFR ( Amer) Glucose Lactic Acid Calcium Total Bilirubin AST Alkaline Phosphatase Total Protein Albumin Urine Color Urine Appearance Urine pH Ur Specific [place] Urine Protein Urine Glucose (UA) Urine Ketones Urine Blood Urine Nitrite Ur Leukocyte Esterase Urine WBC (Auto) Urine RBC (Auto) Impressions: Chest X-Ray 10/26/20 11:49 IMPRESSION: Multifocal bilateral pneumonia Assessment & Plan - Diagnosis (1) Acute hypoxemic respiratory failure Is this a current diagnosis for this admission?: Yes Plan: She has hypoxemic respiratory failure due to diffuse bilateral infiltrate, patient not presently requiring noninvasive positive pressure ventilation she is on oxygen supplementation through nasal cannula (2) Pneumonia due to COVID-19 virus Is this a current diagnosis for this admission?: Yes Plan: She has Covid pneumonia, start remdesivir, IV dexamethasone, she will receive 5- day course of remdesivir, 10-day course of IV dexamethasone (3) Urinary tract infection associated with cystostomy catheter Qualifiers: Encounter type: initial encounter Qualified Code(s): T83.510A - Infection and inflammatory reaction due to cystostomy catheter, initial encounter; N39.0 - Urinary tract infection, site not specified Is this a current diagnosis for this admission?: Yes Plan: She has chronic indwelling suprapubic urinary catheter with chronic urinary infection most likely due to colonization (4) Obesity hypoventilation syndrome Is this a current diagnosis for this admission?: Yes Plan: She has obesity hypoventilation syndrome, the arterial blood gas, FiO2 2.5 L, PO2 73.5, PCO2 46.9 HCO3 31.8 pH is 7.37, this is consistent with chronic respiratory acidosis compensated with metabolic alkalosis with 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
[2020-10-26 20:11] LABS: ABSOLUTE LYMPHOCYTES# (MANUAL) 0.5 10^3/uL (0.5-4.7); ABSOLUTE MONOCYTES # (MANUAL) 0.1 10^3/uL (0.1-1.4); BAND NEUTROPHILS % (MANUAL) 1 % (3-5); BASOPHILS % (MANUAL) 0 % (0-2); EOSINOPHILS % (MANUAL) 0 % (0-6); LYMPHOCYTES % (MANUAL) 4 % (13-45); MONOCYTES % (MANUAL) 1 % (3-13); SEGMENTED NEUTROPHILS % (MAN) 94 % (42-78); TOTAL CELLS COUNTED 100
[2020-10-26 20:14] LABS: ANISOCYTOSIS SLIGHT; PLATELET COMMENT DECREASED; TOXIC VACUOLATION PRESENT
[2020-10-26 20:15] LABS: ALBUMIN 3.4 g/dL (3.5-5.0); ALKALINE PHOSPHATASE 77 U/L (38-126); ASPARTATE AMINO TRANSFERASE 43 U/L (14-36); BILIRUBIN,DIRECT 0.3 mg/dL (0.0-0.4); BILIRUBIN,TOTAL 0.4 mg/dL (0.2-1.3); BLOOD UREA NITROGEN 20 mg/dL (7-20); C-REACTIVE PROTEIN 74.4 mg/L (<10.0); CALCIUM 8.5 mg/dL (8.4-10.2); CREATINE KINASE 63 U/L (30-135); GLUCOSE 259 mg/dL (75-110); POTASSIUM 4.4 mmol/L (3.6-5.0); TOTAL PROTEIN 6.5 g/dL (6.3-8.2)
[2020-10-26] MEDS ORDERED: ENOXAPARIN SODIUM INJ 40 MG/0.4 ML DISP.SYRIN SUBCUT ONE (20:15)
[2020-10-26 20:18] LABS: CARBON DIOXIDE 35 mmol/L (22-30); CHLORIDE 100 mmol/L (98-107)
[2020-10-26 20:27] LABS: ANION GAP 4 (5-19)
[2020-10-26] MEDS ORDERED: CHOLECALCIFEROL (D3) 1,000 UNIT (25 MCG) TABLET PO ONE (21:00)
[2020-10-26] MEDS ORDERED: ASCORBIC ACID 500 MG TABLET PO ONE (21:00)
[2020-10-26] MEDS ORDERED: ASPIRIN 81 MG TABLET, ENT COATED PO ONE (21:00)
[2020-10-26] MEDS ORDERED: ZINC SULFATE 220 MG CAPSULE PO ONE (21:00)
[2020-10-26] MEDS ORDERED: AZITHROMYCIN 250 MG TABLET ONE (22:19)
[2020-10-26] MEDS: AZTREONAM 1 GM in DEXTROSE 5%-WATER 50 ML IV SCH (22:36)
[2020-10-26] MEDS: RINGERS SOLUTION,LACTATED 1,000 ML IV PRN (22:36)
[2020-10-26] MEDS ORDERED: INSULIN GLARGINE,HUM.REC.ANLOG 1,000 UNIT/10 ML VIAL (PYX) SUBCUT ONE ×2 (22:49→23:00)
[2020-10-26] MEDS ORDERED: DEXTROSE 50%-WATER SYRINGE 12.5 GM/25 ML DOSE IV PRN (23:00)
[2020-10-26] MEDS ORDERED: INSULIN LISPRO 100 UNIT/ML 3 ML VIAL SUBCUT ONE (23:00)
[2020-10-26] MEDS ORDERED: GLUCAGON,HUMAN RECOMB 1 MG INJ IM PRN (23:00)
[2020-10-26] MEDS ORDERED: DEXTROSE 50%-WATER SYRINGE 25 GM/50 ML DOSE IV PRN (23:00)
[2020-10-26] MEDS ORDERED: DEXTROSE 40% GEL 15 GM TUBE PO PRN (23:00)
[2020-10-26] MEDS ORDERED: DEXTROSE 40% GEL 15 GM TUBE X 2 PO PRN (23:00)
[2020-10-27] MEDS: AZTREONAM 1 GM in DEXTROSE 5%-WATER 50 ML IV SCH ×3 (05:08→21:48)
[2020-10-27 06:54] LABS: ARTERIAL BLOOD H2CO3 1.71 mmol/L (1.05-1.35); ARTERIAL BLOOD HCO3 31.8 mmol/L (20-24); ARTERIAL BLOOD PCO2 56.9 mmHg (35-45); ARTERIAL BLOOD PH 7.37 (7.35-7.45); ARTERIAL BLOOD PO2 73.5 mmHg (80-100); ARTERIAL BLOOD TOTAL CO2 33.5 mmol/L (21-25)
[2020-10-27 06:56] LABS: ARTERIAL BLOOD FIO2 2.5L
[2020-10-27] MEDS: INSULIN LISPRO 100 UNIT/ML 3 ML VIAL SUBCUT SCH ×4 (08:40→21:50)
[2020-10-27] MEDS ORDERED: CHOLECALCIFEROL (D3) 1,000 UNIT (25 MCG) TABLET PO SCH (10:00)
[2020-10-27] MEDS ORDERED: REMDESIVIR 200 MG in NORMAL SALINE 250 ML IV ONE (10:00)
[2020-10-27] MEDS: RINGERS SOLUTION,LACTATED 1,000 ML IV PRN ×2 (10:57→18:33)
[2020-10-27] MEDS: ASPIRIN 81 MG TABLET, ENT COATED PO SCH (10:57)
[2020-10-27] MEDS: DEXAMETHASONE SOD PHOS INJ 10 MG/1 ML VIAL IV SCH ×2 (10:57→17:37)
[2020-10-27] MEDS: ASCORBIC ACID 500 MG TABLET PO SCH ×2 (10:57→18:18)
[2020-10-27] MEDS: ZINC SULFATE 220 MG CAPSULE PO SCH (10:57)
--- NOTE | 2020-10-27 15:06 | PDOC PROGRESS REPORT ---
Subjective Date:: 10/27/20 Subjective:: Patient seen by the bedside she is more alert and oriented today she is able to hold conversation, she stated that it is not uncommon for her to have excessive somnolence and yesterday was no different clearly she has decompensated chronic respiratory hypercapnic syndrome due to obesity associated hypoventilation syndrome Reason For Visit: COVID,UTI,ENCEPHALOPATHY Physical Exam Vital Signs: Temp Pulse Resp BP Pulse Ox 97.9 F 67 20 158/69 H 98 10/27/20 11:43 10/27/20 11:43 10/27/20 11:43 10/27/20 11:43 10/27/20 11:43 Intake & Output 10/26/20 10/27/20 10/28/20 06:59 06:59 06:59 Intake Total 600 1000 Output Total 1650 Balance -1050 1000 Weight 158 kg General appearance: PRESENT: no acute distress Eye exam: PRESENT: PERRLA Respiratory exam: PRESENT: rhonchi Cardiovascular exam: PRESENT: +S1, +S2 GI/Abdominal exam: PRESENT: soft Neurological exam: PRESENT: alert Results Laboratory Results: 10/26/20 19:25 10/26/20 19:25 10/26/20 10/26/20 10/26/20 14:30 14:30 14:40 WBC 9.5 RBC 4.50 Hgb 13.4 Hct 40.3 MCV 90 MCH 29.8 MCHC 33.3 RDW 15.6 H Plt Count 143 L Seg Neutrophils % Not Reportable Carbonic Acid HCO3/H2CO3 Ratio ABG pH ABG pCO2 ABG pO2 ABG HCO3 ABG O2 Saturation ABG Base Excess VBG pH VBG pCO2 VBG HCO3 VBG Base Excess FiO2 Sodium 140.1 Potassium 4.4 Chloride 98 Carbon Dioxide 34 H Anion Gap 8 BUN 20 Creatinine 0.90 Est GFR ( Amer) > 60 Glucose 278 H Lactic Acid 1.4 Calcium 8.5 Ferritin Total Bilirubin 0.4 AST 47 H Alkaline Phosphatase 85 C-Reactive Protein Total Protein 6.4 Albumin 3.5 Blood Type 10/26/20 10/26/20 10/26/20 15:25 17:40 19:25 WBC RBC Hgb Hct MCV MCH MCHC RDW Plt Count Seg Neutrophils % Carbonic Acid HCO3/H2CO3 Ratio ABG pH ABG pCO2 ABG pO2 ABG HCO3 ABG O2 Saturation ABG Base Excess VBG pH 7.34 VBG pCO2 63.4 H VBG HCO3 33.7 H VBG Base Excess 6.0 FiO2 Sodium Potassium Chloride Carbon Dioxide Anion Gap BUN Creatinine Est GFR ( Amer) Glucose Lactic Acid 1.0 1.0 Calcium Ferritin Total Bilirubin AST Alkaline Phosphatase C-Reactive Protein Total Protein Albumin Blood Type 10/26/20 10/26/20 10/26/20 19:25 19:25 19:25 WBC 12.1 H RBC 4.40 Hgb 12.7 Hct 39.4 MCV 90 MCH 28.9 MCHC 32.3 RDW 15.6 H Plt Count 125 L Seg Neutrophils % Not Reportable Carbonic Acid HCO3/H2CO3 Ratio ABG pH ABG pCO2 ABG pO2 ABG HCO3 ABG O2 Saturation ABG Base Excess VBG pH VBG pCO2 VBG HCO3 VBG Base Excess FiO2 Sodium 139.4 Potassium 4.4 Chloride 100 Carbon Dioxide 35 H Anion Gap 4 L BUN 20 Creatinine 0.87 Est GFR ( Amer) > 60 Glucose 259 H Lactic Acid Calcium 8.5 Ferritin 85.60 Total Bilirubin 0.4 AST 43 H Alkaline Phosphatase 77 C-Reactive Protein 74.4 H Total Protein 6.5 Albumin 3.4 L Blood Type A POSITIVE 10/27/20 06:25 WBC RBC Hgb Hct MCV MCH MCHC RDW Plt Count Seg Neutrophils % Carbonic Acid 1.71 H HCO3/H2CO3 Ratio 18:1 ABG pH 7.37 ABG pCO2 56.9 H ABG pO2 73.5 L ABG HCO3 31.8 H ABG O2 Saturation 94.0 ABG Base Excess 5.0 VBG pH VBG pCO2 VBG HCO3 VBG Base Excess FiO2 2.5L Sodium Potassium Chloride Carbon Dioxide Anion Gap BUN Creatinine Est GFR ( Amer) Glucose Lactic Acid Calcium Ferritin Total Bilirubin AST Alkaline Phosphatase C-Reactive Protein Total Protein Albumin Blood Type 10/26/20 10/26/20 19:25 19:25 Creatine Kinase 63 Troponin I < 0.012 Impressions: Chest X-Ray 10/26/20 11:49 IMPRESSION: Multifocal bilateral pneumonia Assessment & Plan - Diagnosis (1) Acute hypoxemic respiratory failure Is this a current diagnosis for this admission?: Yes Plan: She will continue oxygen supplementation via nasal cannula.She will be started on low-dose furosemide infusion to decrease the fluid content in the lung, on chest auscultation there is more crackles than a wheeze suggesting interstitial fluid (2) Pneumonia due to COVID-19 virus Is this a current diagnosis for this admission?: Yes Plan: Patient will continue IV dexamethasone, IV remdesivir (3) Urinary tract infection associated with cystostomy catheter Qualifiers: Encounter type: initial encounter Qualified Code(s): T83.510A - Infection and inflammatory reaction due to cystostomy catheter, initial encounter; N39.0 - Urinary tract infection, site not specified Is this a current diagnosis for this admission?: Yes Plan: Patient was started on intravenous aztreonam yesterday,She has 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
[2020-10-27] MEDS ORDERED: MENTHOL TOP PRN ×3 (15:20→16:29)
[2020-10-27] MEDS ORDERED: BISACODYL 5 MG TABEC PO PRN (15:20)
[2020-10-27] MEDS ORDERED: CARBOXYMETHYLCELLULOSE SODIUM OU PRN (15:20)
[2020-10-27] MEDS ORDERED: ONDANSETRON 4 MG TAB.RAPDIS PO PRN (15:20)
[2020-10-27] MEDS ORDERED: MENTHOL TP PRN (15:20)
[2020-10-27] MEDS ORDERED: CAMPHOR TOP PRN ×2 (15:20→16:29)
[2020-10-27] MEDS ORDERED: CRANBERRY FRUIT EXTRACT 250 MG PO SCH ×2 (15:30→17:00)
[2020-10-27] MEDS ORDERED: BUPRENORPHINE HCL 8 MG PO SCH (15:30)
[2020-10-27] MEDS ORDERED: (PENDING PHARMACY ID) (Mirabegron [Myrbetriq] 50 MG Tab.Er.24h) PO SCH ×2 (15:30→17:00)
[2020-10-27] MEDS ORDERED: (PENDING PHARMACY ID) (Dapagliflozin Propanediol [Farxiga] 10 MG Tablet) PO SCH ×2 (15:30→17:00)
[2020-10-27] MEDS ORDERED: PREGABALIN 150 MG PO SCH (15:30)
[2020-10-27] MEDS ORDERED: NALOXEGOL OXALATE 25 MG PO SCH ×2 (15:30→17:00)
[2020-10-27] MEDS ORDERED: HYDROXYCHLOROQUINE SULFATE 200 MG TABLET PO SCH (15:30)
[2020-10-27] MEDS ORDERED: CARBOXYMETHYLCELLULOSE SOD 0.5% 0.4 ML DROPERETTE OD PRN (17:00)
[2020-10-27] MEDS ORDERED: ALLOPURINOL 300 MG TABLET PO ONE (17:45)
[2020-10-27] MEDS ORDERED: CETIRIZINE 10 MG TABLET PO ONE (17:45)
[2020-10-27] MEDS ORDERED: CALCIUM CARBONATE 600 MG TABLET PO ONE (17:45)
[2020-10-27] MEDS ORDERED: FLUTICASONE/VILANTEROL 200-25 MCG/DOSE IH ONE (18:00)
[2020-10-27] MEDS ORDERED: CHOLECALCIFEROL (D3) 1,000 UNIT (25 MCG) TABLET PO ONE (18:00)
[2020-10-27] MEDS ORDERED: METOPROLOL SUCCINATE 25 MG TAB.SR.24H PO ONE (18:00)
[2020-10-27] MEDS ORDERED: (PENDING PHARMACY ID) (Budesonide/Formoterol Fumarate 60 PUFF/6 GM Inhaler) IH SCH (18:00)
[2020-10-27] MEDS ORDERED: FUROSEMIDE INJ/PF 100 MG/10 ML SDV ONE ×2 (18:16→18:25)
[2020-10-27] MEDS: SENNOSIDES/DOCUSATE 8.6-50 MG 1 EACH TABLET PO SCH (18:18)
[2020-10-27] MEDS: CYCLOSPORINE 0.05% OPH EMULSIO 0.4 ML DROPERETTE OU SCH ×2 (18:18→22:54)
[2020-10-27] MEDS: POLYETHYLENE GLYCOL 3350 POWDER 17 GM/1 PACKET PO SCH (18:18)
[2020-10-27] MEDS: NORMAL SALINE 250 ML with FUROSEMIDE 250 MG IV PRN ×2 (18:33)
[2020-10-27] MEDS: BUPRENORPHINE HCL 2 MG SUBLINGUAL TABLET SL SCH (21:49)
[2020-10-27] MEDS: ENOXAPARIN SODIUM INJ 40 MG/0.4 ML DISP.SYRIN SUBCUT SCH (21:49)
[2020-10-27] MEDS: AZITHROMYCIN 250 MG TABLET PO SCH (21:49)
[2020-10-27] MEDS: PREGABALIN 50 MG CAPSULE PO SCH (21:49)
[2020-10-27] MEDS ORDERED: INSULIN GLARGINE,HUM.REC.ANLOG 1,000 UNIT/10 ML VIAL SUBCUT SCH (22:00)
[2020-10-27] MEDS ORDERED: INSULIN GLARGINE,HUM.REC.ANLOG 1,000 UNIT/10 ML VIAL (PYX) SUBCUT SCH (22:00)
[2020-10-27] MEDS: CARBOXYMETHYLCELLULOSE SOD 0.5% 0.4 ML DROPERETTE OU SCH (22:54)
[2020-10-28] MEDS: RINGERS SOLUTION,LACTATED 1,000 ML IV PRN (02:17)
[2020-10-28] MEDS: PREGABALIN 50 MG CAPSULE PO SCH ×3 (05:16→22:08)
[2020-10-28] MEDS: AZTREONAM 1 GM in DEXTROSE 5%-WATER 50 ML IV SCH ×3 (05:17→22:08)
[2020-10-28] MEDS: INSULIN LISPRO 100 UNIT/ML 3 ML VIAL SUBCUT SCH ×4 (08:06→22:07)
[2020-10-28] MEDS: CALCIUM CARBONATE 600 MG TABLET PO SCH (08:06)
[2020-10-28] MEDS: CHOLECALCIFEROL (D3) 1,000 UNIT (25 MCG) TABLET PO SCH (09:51)
[2020-10-28] MEDS: ALLOPURINOL 300 MG TABLET PO SCH (09:51)
[2020-10-28] MEDS: METOPROLOL SUCCINATE 25 MG TAB.SR.24H PO SCH (09:51)
[2020-10-28] MEDS: SENNOSIDES/DOCUSATE 8.6-50 MG 1 EACH TABLET PO SCH ×2 (09:51→17:06)
[2020-10-28] MEDS: ASCORBIC ACID 500 MG TABLET PO SCH ×2 (09:51→17:15)
[2020-10-28] MEDS: DEXAMETHASONE SOD PHOS INJ 10 MG/1 ML VIAL IV SCH (09:52)
[2020-10-28] MEDS: CETIRIZINE 10 MG TABLET PO SCH (09:52)
[2020-10-28] MEDS: POLYETHYLENE GLYCOL 3350 POWDER 17 GM/1 PACKET PO SCH ×3 (09:52→17:06)
[2020-10-28] MEDS: ASPIRIN 81 MG TABLET, ENT COATED PO SCH (09:52)
[2020-10-28] MEDS: ZINC SULFATE 220 MG CAPSULE PO SCH (09:52)
[2020-10-28] MEDS: FLUTICASONE/VILANTEROL 200-25 MCG/DOSE IH SCH (09:52)
[2020-10-28] MEDS: BUPRENORPHINE HCL 2 MG SUBLINGUAL TABLET SL SCH ×4 (09:52→22:08)
[2020-10-28] MEDS: CYCLOSPORINE 0.05% OPH EMULSIO 0.4 ML DROPERETTE OU SCH ×2 (09:53→22:12)
[2020-10-28] MEDS: REMDESIVIR 100 MG in NORMAL SALINE 250 ML IV SCH (10:59)
[2020-10-28] MEDS: NORMAL SALINE 250 ML with FUROSEMIDE 250 MG IV PRN ×2 (18:07)
[2020-10-28] MEDS: PHARMACY COMMUNICATION ORDER MC SCH (18:08)
--- NOTE | 2020-10-28 19:55 | PDOC PROGRESS REPORT ---
Subjective Date:: 10/28/20 Subjective:: Patient seen by the bedside she is more alert and oriented today she is able to hold conversation, she stated that it is not uncommon for her to have excessive somnolence and yesterday was no different clearly she has decompensated chronic respiratory hypercapnic syndrome due to obesity associated hypoventilation syndrome 10/28/2020 Patient seen by the bedside, the nurses stated that there is urinary leak around the cystostomy urinary catheter Reason For Visit: COVID,UTI,ENCEPHALOPATHY Physical Exam Vital Signs: Temp Pulse Resp BP Pulse Ox 99.1 F 66 16 137/45 H 98 10/28/20 17:08 10/28/20 17:08 10/28/20 11:32 10/28/20 17:08 10/28/20 17:08 Intake & Output 10/27/20 10/28/20 10/29/20 06:59 06:59 06:59 Intake Total 600 2327 302 Output Total 1650 950 Balance -1050 1377 302 Weight 158 kg 160.4 kg General appearance: PRESENT: obese Eye exam: PRESENT: PERRLA Respiratory exam: PRESENT: clear to auscultation pennie Cardiovascular exam: PRESENT: +S1, +S2 GI/Abdominal exam: PRESENT: soft Neurological exam: PRESENT: alert Results Laboratory Results: 10/26/20 19:25 10/26/20 19:25 10/26/20 10:45 Catheterized Urine Urine Culture - Final Yeast, Not Olinda Albicans 10/26/20 10/26/20 19:25 19:25 Creatine Kinase 63 Troponin I < 0.012 Impressions: Chest X-Ray 10/26/20 11:49 IMPRESSION: Multifocal bilateral pneumonia Assessment & Plan - Diagnosis (1) Acute hypoxemic respiratory failure Is this a current diagnosis for this admission?: Yes Plan: She will continue oxygen supplementation via nasal cannula.She will continue low-dose furosemide infusion to decrease the fluid content in the lung, on chest auscultation there is more crackles than a wheeze suggesting interstitial fluid (2) Pneumonia due to COVID-19 virus Is this a current diagnosis for this admission?: Yes Plan: Patient will continue IV dexamethasone, IV remdesivir (3) Urinary tract infection associated with cystostomy catheter Qualifiers: Encounter type: initial encounter Qualified Code(s): T83.510A - Infection and inflammatory reaction due to cystostomy catheter, initial encounter; N39.0 - Urinary tract infection, site not specified Is this a current diagnosis for this admission?: Yes Plan: She will continue intravenous aztreonam ,She has 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
[2020-10-28 21:18] LABS: ABSOLUTE LYMPHOCYTES (AUTO) 1.2 10^3/uL (0.5-4.7); ABSOLUTE MONOCYTES (AUTO) 0.5 10^3/uL (0.1-1.4); ABSOLUTE NEUT (AUTO) 4.8 10^3/uL (1.7-8.2); BASOPHILS % (AUTO) 0.6 % (0-2); HEMOGLOBIN 11.6 g/dL (12.0-15.5); LYMPHOCYTES % (AUTO) 17.7 % (13-45); MEAN CORPUSCULAR HEMOGLOBIN 29.2 pg (27.0-33.4); MEAN CORPUSCULAR HGB CONC 33.1 g/dL (32.0-36.0); MEAN CORPUSCULAR VOLUME 88 fl (80-97); MONOCYTES % (AUTO) 8.1 % (3-13); PLATELET COUNT 147 10^3/uL (150-450); RED BLOOD COUNT 3.97 10^6/uL (3.72-5.28); RED CELL DISTRIBUTION WIDTH 15.4 % (11.5-14.0); SEGMENTED NEUTROPHILS % (AUTO) 73.6 % (42-78); TOTAL CELLS COUNTED % (AUTO) 100 %; WHITE BLOOD COUNT 6.5 10^3/uL (4.0-10.5)
--- NOTE | 2020-10-28 21:22 | RADIOLOGY REPORT (SQ) ---
EXAM DESCRIPTION: XR CHEST 1 VIEW COMPLETED DATE/TME: 10/28/2020 20:46 CLINICAL HISTORY: 70 years, Female, pneumonia COMPARISON: Chest x-ray 10/26/2020. TECHNIQUE: Upright portable chest x-ray FINDINGS: Mild to moderate cardiomediastinal enlargement unchanged and probably exaggerated by fat. No obvious pleural effusion. Small left effusion is not excluded Since 10/26/2020, bilateral patchy infiltrates appear less conspicuous.
[2020-10-28 21:55] LABS: ALBUMIN 3.1 g/dL (3.5-5.0); ALKALINE PHOSPHATASE 63 U/L (38-126); ASPARTATE AMINO TRANSFERASE 18 U/L (14-36); BILIRUBIN,DIRECT 0.2 mg/dL (0.0-0.4); BILIRUBIN,TOTAL 0.3 mg/dL (0.2-1.3); BLOOD UREA NITROGEN 23 mg/dL (7-20); CALCIUM 8.3 mg/dL (8.4-10.2); GLUCOSE 181 mg/dL (75-110); POTASSIUM 3.8 mmol/L (3.6-5.0); TOTAL PROTEIN 5.8 g/dL (6.3-8.2)
[2020-10-28 22:00] LABS: CARBON DIOXIDE 37 mmol/L (22-30); CHLORIDE 97 mmol/L (98-107)
[2020-10-28] MEDS: AZITHROMYCIN 250 MG TABLET PO SCH (22:09)
[2020-10-28 22:11] LABS: ANION GAP 2 (5-19)
[2020-10-28] MEDS: INSULIN GLARGINE,HUM.REC.ANLOG 1,000 UNIT/10 ML VIAL SUBCUT SCH (22:12)
[2020-10-28] MEDS: ENOXAPARIN SODIUM INJ 40 MG/0.4 ML DISP.SYRIN SUBCUT SCH (22:34)
[2020-10-28] MEDS: CARBOXYMETHYLCELLULOSE SOD 0.5% 0.4 ML DROPERETTE OU SCH (22:35)
[2020-10-29] MEDS: PREGABALIN 50 MG CAPSULE PO SCH ×3 (05:24→21:33)
[2020-10-29] MEDS: AZTREONAM 1 GM in DEXTROSE 5%-WATER 50 ML IV SCH ×3 (05:24→21:34)
[2020-10-29 06:33] LABS: ABSOLUTE LYMPHOCYTES (AUTO) 1.3 10^3/uL (0.5-4.7); ABSOLUTE MONOCYTES (AUTO) 0.5 10^3/uL (0.1-1.4); ABSOLUTE NEUT (AUTO) 2.7 10^3/uL (1.7-8.2); BASOPHILS % (AUTO) 0.3 % (0-2); EOSINOPHILS % (AUTO) 0.1 % (0-6); HEMATOCRIT 34.7 % (36.0-47.0); HEMOGLOBIN 11.3 g/dL (12.0-15.5); LYMPHOCYTES % (AUTO) 29.1 % (13-45); MEAN CORPUSCULAR HEMOGLOBIN 28.8 pg (27.0-33.4); MEAN CORPUSCULAR HGB CONC 32.5 g/dL (32.0-36.0); MEAN CORPUSCULAR VOLUME 89 fl (80-97); MONOCYTES % (AUTO) 11.4 % (3-13); PLATELET COUNT 154 10^3/uL (150-450); RED BLOOD COUNT 3.91 10^6/uL (3.72-5.28); RED CELL DISTRIBUTION WIDTH 15.6 % (11.5-14.0); SEGMENTED NEUTROPHILS % (AUTO) 59.1 % (42-78); TOTAL CELLS COUNTED % (AUTO) 100 %; WHITE BLOOD COUNT 4.6 10^3/uL (4.0-10.5)
[2020-10-29 07:14] LABS: ALBUMIN 2.9 g/dL (3.5-5.0); ALKALINE PHOSPHATASE 62 U/L (38-126); ASPARTATE AMINO TRANSFERASE 17 U/L (14-36); BILIRUBIN,DIRECT 0.2 mg/dL (0.0-0.4); BILIRUBIN,TOTAL 0.4 mg/dL (0.2-1.3); BLOOD UREA NITROGEN 22 mg/dL (7-20); CARBON DIOXIDE 36 mmol/L (22-30); CHLORIDE 97 mmol/L (98-107); GLUCOSE 134 mg/dL (75-110); POTASSIUM 3.5 mmol/L (3.6-5.0); TOTAL PROTEIN 5.6 g/dL (6.3-8.2)
[2020-10-29 07:23] LABS: ANION GAP 3 (5-19)
--- NOTE | 2020-10-29 07:50 | EKG REPORT ---
SEVERITY:- ABNORMAL ECG - SINUS RHYTHM FIRST DEGREE AV BLOCK LEFT AXIS DEVIATION CONSIDER ANTERIOR INFARCT : Confirmed by: Aly James MD 29-Oct-2020 07:50:21
[2020-10-29] MEDS: CALCIUM CARBONATE 600 MG TABLET PO SCH (08:32)
[2020-10-29] MEDS: CHOLECALCIFEROL (D3) 1,000 UNIT (25 MCG) TABLET PO SCH (09:10)
[2020-10-29] MEDS: DEXAMETHASONE SOD PHOS INJ 10 MG/1 ML VIAL IV SCH (09:11)
[2020-10-29] MEDS: ASPIRIN 81 MG TABLET, ENT COATED PO SCH (09:12)
[2020-10-29] MEDS: ASCORBIC ACID 500 MG TABLET PO SCH ×2 (09:12→18:31)
[2020-10-29] MEDS: ZINC SULFATE 220 MG CAPSULE PO SCH (09:12)
[2020-10-29] MEDS: ALLOPURINOL 300 MG TABLET PO SCH (09:12)
[2020-10-29] MEDS: POLYETHYLENE GLYCOL 3350 POWDER 17 GM/1 PACKET PO SCH ×2 (09:12→18:30)
[2020-10-29] MEDS: CETIRIZINE 10 MG TABLET PO SCH (09:12)
[2020-10-29] MEDS: INSULIN LISPRO 100 UNIT/ML 3 ML VIAL SUBCUT SCH ×4 (09:13→22:03)
[2020-10-29] MEDS: SENNOSIDES/DOCUSATE 8.6-50 MG 1 EACH TABLET PO SCH ×2 (09:14→18:31)
[2020-10-29] MEDS: BUPRENORPHINE HCL 2 MG SUBLINGUAL TABLET SL SCH ×4 (09:14→21:33)
[2020-10-29] MEDS: METOPROLOL SUCCINATE 25 MG TAB.SR.24H PO SCH (09:14)
[2020-10-29] MEDS: FLUTICASONE/VILANTEROL 200-25 MCG/DOSE IH SCH (09:17)
[2020-10-29] MEDS: POLYVINYL ALCOHOL 1.4% OPH SOLN 15 ML OU PRN (09:17)
[2020-10-29] MEDS: CYCLOSPORINE 0.05% OPH EMULSIO 0.4 ML DROPERETTE OU SCH ×2 (09:18→21:38)
[2020-10-29] MEDS: REMDESIVIR 100 MG in NORMAL SALINE 250 ML IV SCH (11:46)
[2020-10-29] MEDS: NORMAL SALINE 250 ML with FUROSEMIDE 250 MG IV PRN ×2 (18:29)
[2020-10-29] MEDS: PHARMACY COMMUNICATION ORDER MC SCH (18:29)
--- NOTE | 2020-10-29 21:09 | PDOC PROGRESS REPORT ---
Subjective Date:: 10/29/20 Subjective:: Patient seen by the bedside she is more alert and oriented today she is able to hold conversation, she stated that it is not uncommon for her to have excessive somnolence and yesterday was no different clearly she has decompensated chronic respiratory hypercapnic syndrome due to obesity associated hypoventilation syndrome 10/28/2020 Patient seen by the bedside, the nurses stated that there is urinary leak around the cystostomy urinary catheter 10/29/2020 Patient seen by the bedside, she has no new complaints, Reason For Visit: COVID,UTI,ENCEPHALOPATHY Physical Exam Vital Signs: Temp Pulse Resp BP Pulse Ox 97.8 F 64 20 155/52 H 95 10/29/20 19:22 10/29/20 19:00 10/29/20 16:46 10/29/20 16:46 10/29/20 16:46 Intake & Output 10/28/20 10/29/20 10/30/20 06:59 06:59 06:59 Intake Total 2327 1539 1144 Output Total 950 1700 1000 Balance 1377 -161 144 Weight 160.4 kg 160.9 kg General appearance: PRESENT: morbidly obese Eye exam: PRESENT: PERRLA Respiratory exam: PRESENT: rhonchi Cardiovascular exam: PRESENT: +S1, +S2 GI/Abdominal exam: PRESENT: soft Neurological exam: PRESENT: alert Results Laboratory Results: 10/29/20 06:17 10/29/20 06:17 10/28/20 10/28/20 10/29/20 21:12 21:12 06:17 WBC 6.5 4.6 RBC 3.97 3.91 Hgb 11.6 L 11.3 L Hct 35.0 L 34.7 L MCV 88 89 MCH 29.2 28.8 MCHC 33.1 32.5 RDW 15.4 H 15.6 H Plt Count 147 L 154 Seg Neutrophils % 73.6 59.1 Sodium 136.4 L Potassium 3.8 Chloride 97 L Carbon Dioxide 37 H Anion Gap 2 L BUN 23 H Creatinine 0.65 Est GFR ( Amer) > 60 Glucose 181 H Calcium 8.3 L Total Bilirubin 0.3 AST 18 Alkaline Phosphatase 63 Total Protein 5.8 L Albumin 3.1 L 10/29/20 06:17 WBC RBC Hgb Hct MCV MCH MCHC RDW Plt Count Seg Neutrophils % Sodium 136.1 L Potassium 3.5 L Chloride 97 L Carbon Dioxide 36 H Anion Gap 3 L BUN 22 H Creatinine 0.60 Est GFR ( Amer) > 60 Glucose 134 H Calcium 8.0 L Total Bilirubin 0.4 AST 17 Alkaline Phosphatase 62 Total Protein 5.6 L Albumin 2.9 L 10/26/20 10/26/20 19:25 19:25 Creatine Kinase 63 Troponin I < 0.012 Assessment & Plan - Diagnosis (1) Acute hypoxemic respiratory failure Is this a current diagnosis for this admission?: Yes Plan: She will continue oxygen supplementation via nasal cannula.She will continue low-dose furosemide infusion to decrease the fluid content in the lung, on chest auscultation there is more crackles than a wheeze suggesting interstitial fluid (2) Pneumonia due to COVID-19 virus Is this a current diagnosis for this admission?: Yes Plan: Patient will continue IV dexamethasone, IV remdesivir (3) Urinary tract infection associated with cystostomy catheter Qualifiers: Encounter type: initial encounter Qualified Code(s): T83.510A - Infection and inflammatory reaction due to cystostomy catheter, initial encounter; N39.0 - Urinary tract infection, site not specified Is this a current diagnosis for this admission?: Yes Plan: She will continue intravenous aztreonam ,She has 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
[2020-10-29] MEDS: AZITHROMYCIN 250 MG TABLET PO SCH (21:33)
[2020-10-29] MEDS: INSULIN GLARGINE,HUM.REC.ANLOG 1,000 UNIT/10 ML VIAL SUBCUT SCH (21:34)
[2020-10-29] MEDS: ENOXAPARIN SODIUM INJ 40 MG/0.4 ML DISP.SYRIN SUBCUT SCH (21:36)
[2020-10-29] MEDS: CARBOXYMETHYLCELLULOSE SOD 0.5% 0.4 ML DROPERETTE OU SCH (21:41)
[2020-10-30] MEDS: RINGERS SOLUTION,LACTATED 1,000 ML IV PRN (03:08)
[2020-10-30] MEDS: AZTREONAM 1 GM in DEXTROSE 5%-WATER 50 ML IV SCH ×3 (06:07→22:31)
[2020-10-30] MEDS: PREGABALIN 50 MG CAPSULE PO SCH ×3 (06:07→22:32)
[2020-10-30] MEDS: INSULIN LISPRO 100 UNIT/ML 3 ML VIAL SUBCUT SCH ×4 (08:05→22:31)
[2020-10-30] MEDS: CALCIUM CARBONATE 600 MG TABLET PO SCH (08:05)
[2020-10-30] MEDS: ASPIRIN 81 MG TABLET, ENT COATED PO SCH (09:01)
[2020-10-30] MEDS: ASCORBIC ACID 500 MG TABLET PO SCH ×2 (09:01→17:28)
[2020-10-30] MEDS: BUPRENORPHINE HCL 2 MG SUBLINGUAL TABLET SL SCH ×4 (09:01→22:32)
[2020-10-30] MEDS: ALLOPURINOL 300 MG TABLET PO SCH (09:02)
[2020-10-30] MEDS: METOPROLOL SUCCINATE 25 MG TAB.SR.24H PO SCH (09:02)
[2020-10-30] MEDS: ZINC SULFATE 220 MG CAPSULE PO SCH (09:02)
[2020-10-30] MEDS: DEXAMETHASONE SOD PHOS INJ 10 MG/1 ML VIAL IV SCH (09:02)
[2020-10-30] MEDS: CETIRIZINE 10 MG TABLET PO SCH (09:02)
[2020-10-30] MEDS: SENNOSIDES/DOCUSATE 8.6-50 MG 1 EACH TABLET PO SCH ×2 (09:02→17:31)
[2020-10-30] MEDS: CHOLECALCIFEROL (D3) 1,000 UNIT (25 MCG) TABLET PO SCH (09:02)
[2020-10-30] MEDS: CYCLOSPORINE 0.05% OPH EMULSIO 0.4 ML DROPERETTE OU SCH ×2 (09:03→22:32)
[2020-10-30] MEDS: FLUTICASONE/VILANTEROL 200-25 MCG/DOSE IH SCH (09:03)
[2020-10-30] MEDS: POLYETHYLENE GLYCOL 3350 POWDER 17 GM/1 PACKET PO SCH ×2 (09:03→17:31)
[2020-10-30] MEDS: REMDESIVIR 100 MG in NORMAL SALINE 250 ML IV SCH (10:47)
--- NOTE | 2020-10-30 17:00 | PDOC PROGRESS REPORT ---
Subjective Date:: 10/30/20 Subjective:: Patient seen by the bedside she is more alert and oriented today she is able to hold conversation, she stated that it is not uncommon for her to have excessive somnolence and yesterday was no different clearly she has decompensated chronic respiratory hypercapnic syndrome due to obesity associated hypoventilation syndrome 10/28/2020 Patient seen by the bedside, the nurses stated that there is urinary leak around the cystostomy urinary catheter 10/29/2020 Patient seen by the bedside, she has no new complaints, 10/30/2020 Patient seen by the bedside,, She continues to make progress Reason For Visit: COVID,UTI,ENCEPHALOPATHY Physical Exam Vital Signs: Temp Pulse Resp BP Pulse Ox 97.6 F 58 L 24 H 151/77 H 97 10/30/20 12:12 10/30/20 14:00 10/30/20 12:12 10/30/20 12:12 10/30/20 12:12 Intake & Output 10/29/20 10/30/20 10/31/20 06:59 06:59 06:59 Intake Total 2539 1144 250 Output Total 1700 1875 Balance 839 -731 250 Weight 160.9 kg 162.6 kg General appearance: PRESENT: no acute distress Eye exam: PRESENT: PERRLA Respiratory exam: PRESENT: rhonchi Cardiovascular exam: PRESENT: +S1, +S2 GI/Abdominal exam: PRESENT: soft Neurological exam: PRESENT: alert Results Laboratory Results: 10/29/20 06:17 10/29/20 06:17 10/26/20 10/26/20 19:25 19:25 Creatine Kinase 63 Troponin I < 0.012 Assessment & Plan - Diagnosis (1) Acute hypoxemic respiratory failure Is this a current diagnosis for this admission?: Yes Plan: She will continue oxygen supplementation via nasal cannula.She will continue low-dose furosemide infusion to decrease the fluid content in the lung, on chest auscultation there is more crackles than a wheeze suggesting interstitial fluid (2) Pneumonia due to COVID-19 virus Is this a current diagnosis for this admission?: Yes Plan: Patient will continue IV dexamethasone, IV remdesivir (3) Urinary tract infection associated with cystostomy catheter Qualifiers: Encounter type: initial encounter Qualified Code(s): T83.510A - Infection and inflammatory reaction due to cystostomy catheter, initial encounter; N39.0 - Urinary tract infection, site not specified Is this a current diagnosis for this admission?: Yes Plan: She will continue intravenous aztreonam ,She has 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
[2020-10-30] MEDS: PHARMACY COMMUNICATION ORDER MC SCH (17:31)
[2020-10-30] MEDS: NORMAL SALINE 250 ML with FUROSEMIDE 250 MG IV PRN ×2 (17:32)
[2020-10-30] MEDS: INSULIN GLARGINE,HUM.REC.ANLOG 1,000 UNIT/10 ML VIAL SUBCUT SCH (22:31)
[2020-10-30] MEDS: AZITHROMYCIN 250 MG TABLET PO SCH (22:32)
[2020-10-30] MEDS: POLYVINYL ALCOHOL 1.4% OPH SOLN 15 ML OU PRN (22:33)
[2020-10-30] MEDS: ENOXAPARIN SODIUM INJ 40 MG/0.4 ML DISP.SYRIN SUBCUT SCH (22:33)
[2020-10-30] MEDS: CARBOXYMETHYLCELLULOSE SOD 0.5% 0.4 ML DROPERETTE OU SCH (22:34)
[2020-10-31] MEDS: RINGERS SOLUTION,LACTATED 1,000 ML IV PRN (01:20)
[2020-10-31] MEDS: PREGABALIN 50 MG CAPSULE PO SCH ×3 (05:05→21:41)
[2020-10-31] MEDS: AZTREONAM 1 GM in DEXTROSE 5%-WATER 50 ML IV SCH ×3 (05:05→21:40)
[2020-10-31] MEDS: CALCIUM CARBONATE 600 MG TABLET PO SCH (08:22)
[2020-10-31] MEDS: INSULIN LISPRO 100 UNIT/ML 3 ML VIAL SUBCUT SCH ×4 (08:22→21:38)
[2020-10-31] MEDS: SENNOSIDES/DOCUSATE 8.6-50 MG 1 EACH TABLET PO SCH ×2 (10:07→17:01)
[2020-10-31] MEDS: ZINC SULFATE 220 MG CAPSULE PO SCH (10:07)
[2020-10-31] MEDS: METOPROLOL SUCCINATE 25 MG TAB.SR.24H PO SCH (10:13)
[2020-10-31] MEDS: ASPIRIN 81 MG TABLET, ENT COATED PO SCH (10:13)
[2020-10-31] MEDS: CHOLECALCIFEROL (D3) 1,000 UNIT (25 MCG) TABLET PO SCH (10:13)
[2020-10-31] MEDS: ASCORBIC ACID 500 MG TABLET PO SCH ×2 (10:13→17:04)
[2020-10-31] MEDS: BUPRENORPHINE HCL 2 MG SUBLINGUAL TABLET SL SCH ×4 (10:13→21:42)
[2020-10-31] MEDS: CETIRIZINE 10 MG TABLET PO SCH (10:13)
[2020-10-31] MEDS: DEXAMETHASONE SOD PHOS INJ 10 MG/1 ML VIAL IV SCH (10:13)
[2020-10-31] MEDS: ALLOPURINOL 300 MG TABLET PO SCH (10:13)
[2020-10-31] MEDS: POLYETHYLENE GLYCOL 3350 POWDER 17 GM/1 PACKET PO SCH ×2 (10:14→17:00)
[2020-10-31] MEDS: FLUTICASONE/VILANTEROL 200-25 MCG/DOSE IH SCH (10:14)
[2020-10-31] MEDS: REMDESIVIR 100 MG in NORMAL SALINE 250 ML IV SCH (10:15)
[2020-10-31] MEDS: CYCLOSPORINE 0.05% OPH EMULSIO 0.4 ML DROPERETTE OU SCH ×2 (10:15→21:45)
[2020-10-31] MEDS: NORMAL SALINE 250 ML with FUROSEMIDE 250 MG IV PRN ×2 (18:33)
[2020-10-31] MEDS: PHARMACY COMMUNICATION ORDER MC SCH (18:46)
--- NOTE | 2020-10-31 19:27 | PDOC PROGRESS REPORT ---
Subjective Date:: 10/31/20 Subjective:: Patient is alert, she complain of pain of the right shoulder, she continues to r espond to treatment Reason For Visit: COVID,UTI,ENCEPHALOPATHY Physical Exam Vital Signs: Temp Pulse Resp BP Pulse Ox 97.7 F 62 18 129/54 H 94 10/31/20 16:44 10/31/20 16:44 10/31/20 12:17 10/31/20 16:44 10/31/20 16:44 Intake & Output 10/30/20 10/31/20 11/01/20 06:59 06:59 06:59 Intake Total 1144 2962 305 Output Total 1875 1175 Balance -731 1787 305 Weight 162.6 kg 162.9 kg General appearance: PRESENT: no acute distress, morbidly obese Eye exam: PRESENT: PERRLA Respiratory exam: PRESENT: clear to auscultation pennie Cardiovascular exam: PRESENT: +S1, +S2 GI/Abdominal exam: PRESENT: soft Neurological exam: PRESENT: alert Results Laboratory Results: 10/29/20 06:17 10/29/20 06:17 10/26/20 14:30 Blood Blood Culture - Final NO GROWTH IN 5 DAYS 10/26/20 14:40 Blood Blood Culture - Final NO GROWTH IN 5 DAYS 10/26/20 10/26/20 19:25 19:25 Creatine Kinase 63 Troponin I < 0.012 Assessment & Plan - Diagnosis (1) Acute hypoxemic respiratory failure Is this a current diagnosis for this admission?: Yes Plan: She will continue oxygen supplementation via nasal cannula (2) Pneumonia due to COVID-19 virus Is this a current diagnosis for this admission?: Yes Plan: Patient will continue IV dexamethasone, IV remdesivir (3) Urinary tract infection associated with cystostomy catheter Qualifiers: Encounter type: initial encounter Qualified Code(s): T83.510A - Infection and inflammatory reaction due to cystostomy catheter, initial encounter; N39.0 - Urinary tract infection, site not specified Is this a current diagnosis for this admission?: Yes Plan: She will continue intravenous aztreonam ,She has 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
[2020-10-31] MEDS: INSULIN GLARGINE,HUM.REC.ANLOG 1,000 UNIT/10 ML VIAL SUBCUT SCH (21:38)
[2020-10-31] MEDS: NYSTATIN TOPICAL POWDER 15 GM TP SCH (21:39)
[2020-10-31] MEDS: AZITHROMYCIN 250 MG TABLET PO SCH (21:42)
[2020-10-31] MEDS: ENOXAPARIN SODIUM INJ 40 MG/0.4 ML DISP.SYRIN SUBCUT SCH (21:43)
[2020-10-31] MEDS: CARBOXYMETHYLCELLULOSE SOD 0.5% 0.4 ML DROPERETTE OU SCH (21:44)
[2020-11-01] MEDS: PREGABALIN 50 MG CAPSULE PO SCH ×3 (05:35→22:04)
[2020-11-01] MEDS: AZTREONAM 1 GM in DEXTROSE 5%-WATER 50 ML IV SCH ×3 (05:35→22:03)
[2020-11-01] MEDS: RINGERS SOLUTION,LACTATED 1,000 ML IV PRN (05:36)
[2020-11-01] MEDS: INSULIN LISPRO 100 UNIT/ML 3 ML VIAL SUBCUT SCH ×4 (09:07→22:03)
[2020-11-01] MEDS: CALCIUM CARBONATE 600 MG TABLET PO SCH (09:08)
[2020-11-01] MEDS: ASPIRIN 81 MG TABLET, ENT COATED PO SCH (09:08)
[2020-11-01] MEDS: CETIRIZINE 10 MG TABLET PO SCH (09:08)
[2020-11-01] MEDS: SENNOSIDES/DOCUSATE 8.6-50 MG 1 EACH TABLET PO SCH ×2 (09:08→18:57)
[2020-11-01] MEDS: ALLOPURINOL 300 MG TABLET PO SCH (09:08)
[2020-11-01] MEDS: ASCORBIC ACID 500 MG TABLET PO SCH ×2 (09:08→18:57)
[2020-11-01] MEDS: METOPROLOL SUCCINATE 25 MG TAB.SR.24H PO SCH (09:08)
[2020-11-01] MEDS: ZINC SULFATE 220 MG CAPSULE PO SCH (09:08)
[2020-11-01] MEDS: CHOLECALCIFEROL (D3) 1,000 UNIT (25 MCG) TABLET PO SCH (09:08)
[2020-11-01] MEDS: FLUTICASONE/VILANTEROL 200-25 MCG/DOSE IH SCH (09:09)
[2020-11-01] MEDS: BUPRENORPHINE HCL 2 MG SUBLINGUAL TABLET SL SCH ×4 (09:09→22:04)
[2020-11-01] MEDS: DEXAMETHASONE SOD PHOS INJ 10 MG/1 ML VIAL IV SCH (09:09)
[2020-11-01] MEDS: NYSTATIN TOPICAL POWDER 15 GM TP SCH ×2 (09:10→18:58)
[2020-11-01] MEDS: POLYETHYLENE GLYCOL 3350 POWDER 17 GM/1 PACKET PO SCH ×3 (09:10→18:57)
[2020-11-01] MEDS: CYCLOSPORINE 0.05% OPH EMULSIO 0.4 ML DROPERETTE OU SCH ×2 (09:11→21:48)
--- NOTE | 2020-11-01 09:43 | RADIOLOGY REPORT (SQ) ---
EXAM DESCRIPTION: SHOULDER RIGHT 1 VIEW IMAGES COMPLETED DATE/TIME: 10/31/2020 9:11 pm REASON FOR STUDY: pain COMPARISON: Scapular Y an AP views of the right shoulder from 11/18/2018. NUMBER OF VIEWS: One view. TECHNIQUE: An AP view of the right shoulder was obtained. LIMITATIONS: None. FINDINGS: MINERALIZATION: Decreased. BONES: Persistent overlap of the humeral head and glenoid (unchanged compared to the radiograph from 11/18/2018). There is advanced degeneration of the glenohumeral and acromioclavicular joints. The keena earance of the greater tubercle of the humerus is consistent with sequela of chronic rotator cuff ten dinopathy. There is no fracture. JOINTS: As above. VISUALIZED LUNGS AND RIBS: No pneumothorax or rib fracture. SOFT TISSUES: Calcifications that project to the right of the cervical spine. OTHER: No other findings. IMPRESSION: Persistent overlap of the humeral head and glenoid (unchanged compared to the radiograph from 11/18/2018). There is advanced degeneration of the glenohumeral and acromioclavicular joints. T he appearance of the greater tubercle of the humerus is consistent with sequela of chronic rotator cu ff tendinopathy. There is no fracture. TECHNICAL DOCUMENTATION: JOB ID: [id number] [email or web address]- All Rights Reserved Reading location - IP/workstation name: [email or web address]
[2020-11-01] MEDS: NORMAL SALINE 250 ML with FUROSEMIDE 250 MG IV PRN ×2 (18:58)
[2020-11-01] MEDS: PHARMACY COMMUNICATION ORDER MC SCH (19:21)
--- NOTE | 2020-11-01 21:37 | PDOC PROGRESS REPORT ---
Subjective Date:: 11/01/20 Subjective:: Patient is alert, she complain of pain of the right shoulder, she continues to r espond to treatment 11/01/2020 Patient seen by the bedside, She complain of pain of the right shoulder yesterday x-ray was obtained, the x-ray demonstrated persistent overlap of the humeral head and glenoid( unchanged compared to the radiograph from 11/18/2018)There is advanced degeneration of the glenohumeral and acromial clavicular joint.She continues to make progress with Covid pneumonia Reason For Visit: COVID,UTI,ENCEPHALOPATHY Physical Exam Vital Signs: Temp Pulse Resp BP Pulse Ox 97.4 F 57 L 12 127/70 H 99 11/01/20 16:32 11/01/20 19:00 11/01/20 16:32 11/01/20 16:32 11/01/20 16:32 Intake & Output 10/31/20 11/01/20 11/02/20 06:59 06:59 06:59 Intake Total 2962 2667 1320 Output Total 1175 2650 1225 Balance 1787 17 95 Weight 162.9 kg 165.6 kg General appearance: PRESENT: no acute distress Eye exam: PRESENT: PERRLA Respiratory exam: PRESENT: rhonchi Cardiovascular exam: PRESENT: +S1, +S2 GI/Abdominal exam: PRESENT: soft Neurological exam: PRESENT: alert Results Laboratory Results: 10/29/20 06:17 10/29/20 06:17 10/26/20 10/26/20 19:25 19:25 Creatine Kinase 63 Troponin I < 0.012 Impressions: Shoulder X-Ray 10/31/20 00:00 IMPRESSION: Persistent overlap of the humeral head and glenoid (unchanged compared to the radiograph from 11/18/2018). There is advanced degeneration of the glenohumeral and acromioclavicular joints. The appearance of the greater tubercle of the humerus is consistent with sequela of chronic rotator cuff tendinopathy. There is no fracture. Assessment & Plan - Diagnosis (1) Acute hypoxemic respiratory failure Is this a current diagnosis for this admission?: Yes Plan: She will continue oxygen supplementation via nasal cannula (2) Pneumonia due to COVID-19 virus Is this a current diagnosis for this admission?: Yes Plan: Patient will continue IV dexamethasone, IV remdesivir (3) Urinary tract infection associated with cystostomy catheter Qualifiers: Encounter type: initial encounter Qualified Code(s): T83.510A - Infection and inflammatory reaction due to cystostomy catheter, initial encounter; N39.0 - Urinary tract infection, site not specified Is this a current diagnosis for this admission?: Yes Plan: She will continue intravenous aztreonam ,She has 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 because of the chronic indwelling suprapubic urinary catheter, the UTI is probably due to colonization rather than a true infection (4) Obesity hypoventilation syndrome Is this a current diagnosis for this admission?: Yes Plan: Patient not presently requiring NIPPV,continue oxygen,nasal canula (5) Mixed acid base balance disorder Is this a current diagnosis for this admission?: Yes (6) Degenerative tear of glenoid labrum of right shoulder Is this a current diagnosis for this admission?: Yes - Time Time Spent with patient: 35 or more minutes Level of Care: IMCU Medications reviewed and adjusted accordingly: Yes Anticipated discharge: Home Anticipated DC Timeframe: Other
[2020-11-01] MEDS: ENOXAPARIN SODIUM INJ 40 MG/0.4 ML DISP.SYRIN SUBCUT SCH (21:48)
[2020-11-01] MEDS: CARBOXYMETHYLCELLULOSE SOD 0.5% 0.4 ML DROPERETTE OU SCH (21:48)
[2020-11-01] MEDS: INSULIN GLARGINE,HUM.REC.ANLOG 1,000 UNIT/10 ML VIAL SUBCUT SCH (22:04)
[2020-11-01] MEDS: AZITHROMYCIN 250 MG TABLET PO SCH (22:04)
[2020-11-02] MEDS: PREGABALIN 50 MG CAPSULE PO SCH ×3 (05:03→22:19)
[2020-11-02] MEDS: AZTREONAM 1 GM in DEXTROSE 5%-WATER 50 ML IV SCH ×2 (05:03→13:36)
[2020-11-02] MEDS: RINGERS SOLUTION,LACTATED 1,000 ML IV PRN (05:39)
[2020-11-02] MEDS: CALCIUM CARBONATE 600 MG TABLET PO SCH (08:06)
[2020-11-02] MEDS: INSULIN LISPRO 100 UNIT/ML 3 ML VIAL SUBCUT SCH ×4 (08:06→22:20)
[2020-11-02] MEDS: ASPIRIN 81 MG TABLET, ENT COATED PO SCH (09:03)
[2020-11-02] MEDS: SENNOSIDES/DOCUSATE 8.6-50 MG 1 EACH TABLET PO SCH ×2 (09:03→18:21)
[2020-11-02] MEDS: ALLOPURINOL 300 MG TABLET PO SCH (09:03)
[2020-11-02] MEDS: ASCORBIC ACID 500 MG TABLET PO SCH ×2 (09:03→18:21)
[2020-11-02] MEDS: CHOLECALCIFEROL (D3) 1,000 UNIT (25 MCG) TABLET PO SCH (09:03)
[2020-11-02] MEDS: METOPROLOL SUCCINATE 25 MG TAB.SR.24H PO SCH (09:03)
[2020-11-02] MEDS: CETIRIZINE 10 MG TABLET PO SCH (09:03)
[2020-11-02] MEDS: POLYETHYLENE GLYCOL 3350 POWDER 17 GM/1 PACKET PO SCH ×2 (09:03→18:21)
[2020-11-02] MEDS: DEXAMETHASONE SOD PHOS INJ 10 MG/1 ML VIAL IV SCH (09:03)
[2020-11-02] MEDS: ZINC SULFATE 220 MG CAPSULE PO SCH (09:03)
[2020-11-02] MEDS: BUPRENORPHINE HCL 2 MG SUBLINGUAL TABLET SL SCH ×4 (09:03→22:19)
[2020-11-02] MEDS: FLUTICASONE/VILANTEROL 200-25 MCG/DOSE IH SCH (09:04)
[2020-11-02] MEDS: CYCLOSPORINE 0.05% OPH EMULSIO 0.4 ML DROPERETTE OU SCH ×2 (09:04→22:21)
[2020-11-02] MEDS: NYSTATIN TOPICAL POWDER 15 GM TP SCH ×2 (09:04→18:47)
[2020-11-02] MEDS: PHARMACY COMMUNICATION ORDER MC SCH (18:22)
--- NOTE | 2020-11-02 19:44 | PDOC PROGRESS REPORT ---
Subjective Date:: 11/02/20 Subjective:: Patient reported improvement in her breathing. No chest pain or difficulty with breathing. No fever or chills. Reason For Visit: COVID,UTI,ENCEPHALOPATHY Physical Exam Vital Signs: Temp Pulse Resp BP Pulse Ox 98.1 F 56 L 22 H 138/57 H 98 11/02/20 09:02 11/02/20 09:02 11/02/20 09:02 11/02/20 09:02 11/02/20 09:02 Intake & Output 11/01/20 11/02/20 11/03/20 06:59 06:59 06:59 Intake Total 2667 2842 Output Total 2650 2375 Balance 17 467 Weight 165.6 kg 165.6 kg General appearance: PRESENT: no acute distress, morbidly obese Eye exam: PRESENT: conjunctiva pink. ABSENT: scleral icterus Mouth exam: PRESENT: moist Respiratory exam: PRESENT: decreased breath sounds - at lung bases Cardiovascular exam: PRESENT: RRR, +S1, +S2 Vascular exam: ABSENT: pallor GI/Abdominal exam: PRESENT: normal bowel sounds, soft. ABSENT: tenderness Extremities exam: ABSENT: pedal edema Neurological exam: PRESENT: alert, awake Skin exam: PRESENT: dry, warm Results Laboratory Results: 10/29/20 06:17 10/29/20 06:17 10/26/20 10/26/20 19:25 19:25 Creatine Kinase 63 Troponin I < 0.012 Impressions: Shoulder X-Ray 10/31/20 00:00 IMPRESSION: Persistent overlap of the humeral head and glenoid (unchanged compared to the radiograph from 11/18/2018). There is advanced degeneration of the glenohumeral and acromioclavicular joints. The appearance of the greater tubercle of the humerus is consistent with sequela of chronic rotator cuff tendinopathy. There is no fracture. Assessment & Plan - Diagnosis (1) Pneumonia due to COVID-19 virus Is this a current diagnosis for this admission?: Yes Plan: Continue current medication management. (2) Acute hypoxemic respiratory failure Is this a current diagnosis for this admission?: Yes Plan: Improved. Continue current medication management. (3) Type 2 diabetes mellitus Qualifiers: Diabetes mellitus senior living insulin use: unspecified manager long term care insulin use status Diabetes mellitus complication status: with other specified complicatio n Qualified Code(s): E11.69 - Type 2 diabetes mellitus with other specified complication Is this a current diagnosis for this admission?: Yes Plan: Continue current medication management. (4) Urinary tract infection associated with cystostomy catheter Qualifiers: Encounter type: initial encounter Qualified Code(s): T83.510A - Infection and inflammatory reaction due to cystostomy catheter, initial encounter; N39.0 - Urinary tract infection, site not specified Is this a current diagnosis for this admission?: Yes Plan: Continue current medication management. (5) BMI 60.0-69.9, adult Is this a current diagnosis for this admission?: Yes Plan: Continue current medication management. (6) Obesity hypoventilation syndrome Is this a current diagnosis for this admission?: Yes Plan: Continue current medication management. - Time Time Spent with patient: 25-34 minutes Level of Care: IMCU Medications reviewed and adjusted accordingly: Yes Anticipated discharge: SNF Anticipated DC Timeframe: within 72 hours - Inpatient Certification Based on my medical assessment, after consideration of the patient's comorbidities, presenting symptoms, or acuity I expect that the services needed warrant INPATIENT care.: Yes I certify that my determination is in accordance with my understanding of Medicare's requirements for reasonable and necessary INPATIENT services [42 CFR 412.3e].: Yes Medical Necessity: Significant Comorbidiites Make Outpatient Treatment Too Risky, Need Close Monitoring Due to Risk of Patient Decompensation, Need for IV Antibiotics, Risk of Complication if Not Cared For in Hospital, Risk of Diagnosis Which Will Require Inpatient Eval/Care/Monitoring Post Hospital Care: D/C or Transfer Summary - Plan Summary Plan Summary: Continue current medication management. Overall prognosis remain guarded due to her morbidities.
[2020-11-02] MEDS: AZITHROMYCIN 250 MG TABLET PO SCH (22:19)
[2020-11-02] MEDS: ENOXAPARIN SODIUM INJ 40 MG/0.4 ML DISP.SYRIN SUBCUT SCH (22:20)
[2020-11-02] MEDS: INSULIN GLARGINE,HUM.REC.ANLOG 1,000 UNIT/10 ML VIAL SUBCUT SCH (22:20)
[2020-11-02] MEDS: CARBOXYMETHYLCELLULOSE SOD 0.5% 0.4 ML DROPERETTE OU SCH (22:21)
[2020-11-03] MEDS: RINGERS SOLUTION,LACTATED 1,000 ML IV PRN (05:15)
[2020-11-03] MEDS: PREGABALIN 50 MG CAPSULE PO SCH ×3 (05:15→21:55)
[2020-11-03] MEDS: INSULIN LISPRO 100 UNIT/ML 3 ML VIAL SUBCUT SCH ×4 (08:01→21:54)
[2020-11-03] MEDS: CALCIUM CARBONATE 600 MG TABLET PO SCH (08:02)
[2020-11-03] MEDS: BUPRENORPHINE HCL 2 MG SUBLINGUAL TABLET SL SCH ×4 (09:44→22:08)
[2020-11-03] MEDS: ASPIRIN 81 MG TABLET, ENT COATED PO SCH (09:45)
[2020-11-03] MEDS: CHOLECALCIFEROL (D3) 1,000 UNIT (25 MCG) TABLET PO SCH (09:45)
[2020-11-03] MEDS: ALLOPURINOL 300 MG TABLET PO SCH (09:45)
[2020-11-03] MEDS: METOPROLOL SUCCINATE 25 MG TAB.SR.24H PO SCH (09:45)
[2020-11-03] MEDS: CETIRIZINE 10 MG TABLET PO SCH (09:45)
[2020-11-03] MEDS: POLYETHYLENE GLYCOL 3350 POWDER 17 GM/1 PACKET PO SCH ×2 (09:46→17:25)
[2020-11-03] MEDS: ASCORBIC ACID 500 MG TABLET PO SCH ×2 (09:46→17:26)
[2020-11-03] MEDS: DEXAMETHASONE SOD PHOS INJ 10 MG/1 ML VIAL IV SCH (09:46)
[2020-11-03] MEDS: SENNOSIDES/DOCUSATE 8.6-50 MG 1 EACH TABLET PO SCH ×2 (09:46→17:26)
[2020-11-03] MEDS: ZINC SULFATE 220 MG CAPSULE PO SCH (09:46)
[2020-11-03] MEDS: FLUTICASONE/VILANTEROL 200-25 MCG/DOSE IH SCH (09:47)
[2020-11-03] MEDS: CYCLOSPORINE 0.05% OPH EMULSIO 0.4 ML DROPERETTE OU SCH ×2 (09:47→22:09)
[2020-11-03] MEDS: NYSTATIN TOPICAL POWDER 15 GM TP SCH ×2 (09:47→18:16)
--- NOTE | 2020-11-03 17:19 | PDOC PROGRESS REPORT ---
Subjective Date:: 11/03/20 Subjective:: Patient denied chest pain or difficulty with breathing. No fever or chills. No n ausea, vomiting, or abdominal pain. Reason For Visit: COVID,UTI,ENCEPHALOPATHY Physical Exam Vital Signs: Temp Pulse Resp BP Pulse Ox 97.9 F 57 L 22 H 136/54 H 100 11/03/20 11:46 11/03/20 14:00 11/03/20 11:46 11/03/20 11:46 11/03/20 11:46 Intake & Output 11/02/20 11/03/20 11/04/20 06:59 06:59 06:59 Intake Total 2842 3521 1167 Output Total 5375 1955 700 Balance 467 1566 467 Weight 165.6 kg 166.5 kg Physical Exam: General appearance: PRESENT: no acute distress, morbidly obese Eye exam: PRESENT: conjunctiva pink. ABSENT: pallor, sclera icterus Mouth exam: PRESENT: moist Respiratory exam: PRESENT: decreased breath sounds - at lung bases Cardiovascular exam: PRESENT: RRR, +S1, +S2 GI/Abdominal exam: PRESENT: normal bowel sounds, soft. ABSENT: tenderness Extremities exam: ABSENT: pedal edema Neurological exam: PRESENT: alert, awake Skin exam: PRESENT: dry, warm Results Laboratory Results: 10/29/20 06:17 10/29/20 06:17 10/26/20 10/26/20 19:25 19:25 Creatine Kinase 63 Troponin I < 0.012 Impressions: Shoulder X-Ray 10/31/20 00:00 IMPRESSION: Persistent overlap of the humeral head and glenoid (unchanged compared to the radiograph from 11/18/2018). There is advanced degeneration of the glenohumeral and acromioclavicular joints. The appearance of the greater tubercle of the humerus is consistent with sequela of chronic rotator cuff tendinopathy. There is no fracture. 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 Diabetes mellitus complication status: with other specified complication Qualified Code(s): E11.69 - Type 2 diabetes mellitus with other specified complication Is this a current diagnosis for this admission?: Yes (4) Urinary tract infection associated with cystostomy catheter Qualifiers: Encounter type: initial encounter Qualified Code(s): T83.510A - Infection and inflammatory reaction due to cystostomy catheter, initial encounter; N39.0 - Urinary tract infection, site not specified Is this a current diagnosis for this admission?: Yes (5) BMI 60.0-69.9, adult Is this a current diagnosis for this admission?: Yes (6) Obesity hypoventilation syndrome Is this a current diagnosis for this admission?: Yes - Time Time Spent with patient: 25-34 minutes Level of Care: IMCU Medications reviewed and adjusted accordingly: Yes Anticipated discharge: SNF Anticipated DC Timeframe: within 48 hours - Inpatient Certification Based on my medical assessment, after consideration of the patient's comorbidities, presenting symptoms, or acuity I expect that the services needed warrant INPATIENT care.: Yes I certify that my determination is in accordance with my understanding of Medicare's requirements for reasonable and necessary INPATIENT services [42 CFR 412.3e].: Yes Medical Necessity: Significant Comorbidiites Make Outpatient Treatment Too Risky, Need Close Monitoring Due to Risk of Patient Decompensation, Need For Continuous Telemetry Monitoring, Risk of Complication if Not Cared For in Hospital, Risk of Diagnosis Which Will Require Inpatient Eval/Care/Monitoring Post Hospital Care: D/C or Transfer Summary - Plan Summary Plan Summary: Continue current medication management.
[2020-11-03] MEDS: PHARMACY COMMUNICATION ORDER MC SCH (17:26)
[2020-11-03] MEDS: ENOXAPARIN SODIUM INJ 40 MG/0.4 ML DISP.SYRIN SUBCUT SCH (21:48)
[2020-11-03] MEDS: INSULIN GLARGINE,HUM.REC.ANLOG 1,000 UNIT/10 ML VIAL SUBCUT SCH (21:55)
[2020-11-03] MEDS: CARBOXYMETHYLCELLULOSE SOD 0.5% 0.4 ML DROPERETTE OU SCH (22:10)
[2020-11-04] MEDS: RINGERS SOLUTION,LACTATED 1,000 ML IV PRN ×2 (01:33→19:19)
[2020-11-04] MEDS: PREGABALIN 50 MG CAPSULE PO SCH ×3 (05:15→22:54)
[2020-11-04] MEDS: INSULIN LISPRO 100 UNIT/ML 3 ML VIAL SUBCUT SCH ×4 (08:57→22:49)
[2020-11-04] MEDS: BUPRENORPHINE HCL 2 MG SUBLINGUAL TABLET SL SCH ×4 (09:02→22:54)
[2020-11-04] MEDS: DEXAMETHASONE SOD PHOS INJ 10 MG/1 ML VIAL IV SCH (09:02)
[2020-11-04] MEDS: ASCORBIC ACID 500 MG TABLET PO SCH ×2 (09:03→17:00)
[2020-11-04] MEDS: CHOLECALCIFEROL (D3) 1,000 UNIT (25 MCG) TABLET PO SCH (09:03)
[2020-11-04] MEDS: CALCIUM CARBONATE 600 MG TABLET PO SCH (09:03)
[2020-11-04] MEDS: ASPIRIN 81 MG TABLET, ENT COATED PO SCH (09:03)
[2020-11-04] MEDS: CETIRIZINE 10 MG TABLET PO SCH (09:03)
[2020-11-04] MEDS: ZINC SULFATE 220 MG CAPSULE PO SCH (09:03)
[2020-11-04] MEDS: ALLOPURINOL 300 MG TABLET PO SCH (09:04)
[2020-11-04] MEDS: CYCLOSPORINE 0.05% OPH EMULSIO 0.4 ML DROPERETTE OU SCH ×2 (09:04→22:56)
[2020-11-04] MEDS: SENNOSIDES/DOCUSATE 8.6-50 MG 1 EACH TABLET PO SCH ×2 (09:04→17:00)
[2020-11-04] MEDS: FLUTICASONE/VILANTEROL 200-25 MCG/DOSE IH SCH (09:05)
[2020-11-04] MEDS: POLYETHYLENE GLYCOL 3350 POWDER 17 GM/1 PACKET PO SCH ×2 (09:05→17:01)
[2020-11-04] MEDS: NYSTATIN TOPICAL POWDER 15 GM TP SCH ×2 (09:05→17:01)
[2020-11-04] MEDS: METOPROLOL SUCCINATE 25 MG TAB.SR.24H PO SCH (10:56)
[2020-11-04] MEDS: PHARMACY COMMUNICATION ORDER MC SCH (17:01)
[2020-11-04] MEDS: NORMAL SALINE 250 ML with FUROSEMIDE 250 MG IV PRN ×2 (18:54)
--- NOTE | 2020-11-04 20:09 | PDOC PROGRESS REPORT ---
Subjective Date:: 11/04/20 Subjective:: Patient seen by the bedside, she continues to show improvement in her symptoms, [facility] Reason For Visit: COVID,UTI,ENCEPHALOPATHY Physical Exam Vital Signs: Temp Pulse Resp BP Pulse Ox 97.6 F 56 L 16 120/47 L 95 11/04/20 16:31 11/04/20 16:31 11/04/20 16:31 11/04/20 16:31 11/04/20 16:31 Intake & Output 11/03/20 11/04/20 11/05/20 06:59 06:59 06:59 Intake Total 3521 3597 2028 Output Total 1955 3820 925 Balance 1566 1147 1103 Weight 166.5 kg 165 kg 165 kg General appearance: PRESENT: no acute distress Eye exam: PRESENT: PERRLA Respiratory exam: PRESENT: clear to auscultation pennie Cardiovascular exam: PRESENT: +S1, +S2 GI/Abdominal exam: PRESENT: soft Neurological exam: PRESENT: alert Results Laboratory Results: 10/29/20 06:17 10/29/20 06:17 10/26/20 10/26/20 19:25 19:25 Creatine Kinase 63 Troponin I < 0.012 Impressions: Shoulder X-Ray 10/31/20 00:00 IMPRESSION: Persistent overlap of the humeral head and glenoid (unchanged compared to the radiograph from 11/18/2018). There is advanced degeneration of the glenohumeral and acromioclavicular joints. The appearance of the greater tubercle of the humerus is consistent with sequela of chronic rotator cuff ten dinopathy. There is no fracture. Assessment & Plan - Diagnosis (1) Acute hypoxemic respiratory failure Is this a current diagnosis for this admission?: Yes (2) Pneumonia due to COVID-19 virus Is this a current diagnosis for this admission?: Yes (3) Urinary tract infection associated with cystostomy catheter Qualifiers: Encounter type: initial encounter Qualified Code(s): T83.510A - Infection and inflammatory reaction due to cystostomy catheter, initial encounter; N39.0 - Urinary tract infection, site not specified Is this a current diagnosis for this admission?: Yes (4) Obesity hypoventilation syndrome Is this a current diagnosis for this admission?: Yes (5) Mixed acid base balance disorder Is this a current diagnosis for this admission?: Yes (6) Degenerative tear of glenoid labrum of right shoulder Is this a current diagnosis for this admission?: Yes - Time Time Spent with patient: 15-24 minutes Level of Care: IMCU Medications reviewed and adjusted accordingly: Yes Anticipated discharge: SNF Anticipated DC Timeframe: within 24 hours
--- NOTE | 2020-11-04 20:31 | PDOC TRANSFER SUMMARY ---
Impression - Admit/DC Date/PCP Admission Date/Primary Care Provider: 10/26/20 18:20 NAYLA GEE MD Discharge Date: 11/05/20 - Discharge Diagnosis (1) Acute hypoxemic respiratory failure Is this a current diagnosis for this admission?: Yes (2) Pneumonia due to COVID-19 virus Is this a current diagnosis for this admission?: Yes (3) Urinary tract infection associated with cystostomy catheter Is this a current diagnosis for this admission?: Yes (4) Obesity hypoventilation syndrome Is this a current diagnosis for this admission?: Yes (5) Mixed acid base balance disorder Is this a current diagnosis for this admission?: Yes (6) Degenerative tear of glenoid labrum of right shoulder Is this a current diagnosis for this admission?: Yes (7) Morbid (severe) obesity due to excess calories Is this a current diagnosis for this admission?: Yes - Additional Information Referrals: NAYLA GEE MD [Primary Care Provider] - 11/15/20 2:00 pm Home Medications: Allopurinol [Zyloprim 300 mg Tablet] 300 mg PO DAILY 11/12/19 Bisacodyl [Dulcolax 5 mg Tablet] 5 mg PO DAILYP PRN 11/12/19 Budesonide/Formoterol Fumarate [Symbicort HFA 160-4.5 mcg Inhaler 6 gm] 2 puff IH BID 11/12/19 Calcium Carbonate [Calcium] 600 mg PO QAM 11/12/19 Carboxymethylcellulose Sodium [Refresh Tears] 1 drop OU QIDP PRN 11/12/19 Cetirizine HCl [Zyrtec 10 mg Tablet] 10 mg PO DAILY 11/12/19 Cholecalciferol (Vitamin D3) [Vitamin D3 1000 Unit Tablet] 4,000 unit PO DAILY 11/12/19 Cranberry Fruit Extract [Cranberry 250 mg Capsule] 250 mg PO QAM 11/12/19 Cyclosporine 0.05% Oph Emulsio [Restasis 0.05% Oph Emulsion Pf 0.4 ml] 1 drop OU Q12 11/12/19 Furosemide [Lasix 40 mg Tablet] 40 mg PO BID 11/12/19 Hydroxychloroquine Sulfate [Plaquenil 200 mg Tablet] 200 mg PO Q12 11/12/19 Insulin Glargine,Hum.rec.anlog [Lantus Insulin 100 Unit/1 ml 10 ml] 5 units SQ QHS 11/12/19 Levothyroxine Sodium [Synthroid 0.088 mg Tablet] 0.088 mg PO Q6AM 11/12/19 Menthol/Camphor [Sarna Original 0.5%-0.5% Lotn] 1 applic TOP QIDP PRN 11/12/19 Metoprolol Succinate [Toprol Xl 25 mg Tab.sr] 25 mg PO DAILY 11/12/19 Mirabegron [Myrbetriq] 25 mg PO QAM 11/12/19 Naloxegol Oxalate [Movantik 25 mg Tablet] 25 mg PO QAM 11/12/19 Ondansetron [Zofran Odt 4 mg Tablet] 4 mg PO Q6HP PRN 11/12/19 Pantoprazole Sodium [Protonix [address] Tablet] 40 mg PO Q12 11/12/19 Polyvinyl Alcohol [Liquitears 1.4% Ophth Soln 15 ml] 1 drop OU QIDP PRN 11/12/19 Potassium Chloride [Klor-Con 10 Meq Tablet ER] 10 meq PO Q12 11/12/19 Sennosides/Docusate Sodium [Senna Plus 8.6-50 mg Tablet] 1 tab PO BID 11/12/19 Sodium Chloride [Mckenzie Nasal Gateway 44 ml Bottle] 1 spray NASL DAILYP PRN 11/12/19 Menthol [Biofreeze] 1 applic TP Q6HP PRN 07/06/20 Insulin Lispro [Humalog Insulin (Lispro) 100 unit/mL] 0 unit SUBCUT .SLD SCALE 07/22/20 Montelukast Sodium [Singulair 10 mg Tablet] 10 mg PO QHS 09/27/20 Pregabalin 150 mg PO Q8 09/27/20 Benzocaine/Menthol [Chloraseptic Sore Throat Lozenge] 1 lozenge PO Q1HP PRN 10/27/20 Buprenorphine HCl 4 mg PO QID 10/27/20 Carboxymethylcellulose Sodium [Refresh Plus 0.5% Oph Soln 0.4 ml Droperette] 1 drop OU QHS 10/27/20 Dapagliflozin Propanediol [Farxiga] 10 mg PO QAM 10/27/20 Polyethylene Glycol 3350 [Miralax Powder 17 gm/Packet] 1 packet PO BID 10/27/20 Aspirin [Ecotrin 81 mg EC Tablet] 81 mg PO DAILY tabec 11/04/20 History of Present Illiness History of Present Illness: NETTA RICO is a 70 year old female, She was diagnosed with SARS-CoV-2 infection, resident of the shelter at [facility], the staff at the shelter could not maintain adequate oxygenation, the oxygen saturation was in the low 70s, she was transferred to the emergency room for further evaluation and management.She has indwelling suprapubic urinary catheter, In the emergency room she has altered mental status, very stuporous, history was limi rosalio due her stuporous state.The chest x-ray that was done demonstrated patchy diffuse bilateral airspace disease right side more than the left Hospital Course Hospital Course: Patient was admitted for the management of acute hypoxemic respiratory failure due to Covid pneumonia, urinary tract infection, she was treated successfully with intravenous remdesivir, dexamethasone, IV antibiotic aztreonam for UTI.She required noninvasive positive pressure ventilation initially, subsequently adequate oxygenation was achieved with oxygen through nasal cannula. Physical Exam Vital Signs: Temp Pulse Resp BP Pulse Ox 97.6 F 56 L 16 120/47 L 95 11/04/20 16:31 11/04/20 19:00 11/04/20 16:31 11/04/20 16:31 11/04/20 16:31 Intake & Output 11/03/20 11/04/20 11/05/20 06:59 06:59 06:59 Intake Total 3521 3597 2028 Output Total 1952 2450 925 Balance 1566 1147 1103 Weight 166.5 kg 165 kg 165 kg General appearance: PRESENT: no acute distress Eye exam: PRESENT: PERRLA Respiratory exam: PRESENT: clear to auscultation pennie Cardiovascular exam: PRESENT: +S1, +S2 GI/Abdominal exam: PRESENT: soft Neurological exam: PRESENT: alert Results Laboratory Results: WBC 4.6 10^3/uL (4.0-10.5) 10/29/20 06:17 RBC 3.91 10^6/uL (3.72-5.28) 10/29/20 06:17 Hgb 11.3 g/dL (12.0-15.5) L 10/29/20 06:17 Hct 34.7 % (36.0-47.0) L 10/29/20 06:17 MCV 89 fl (80-97) 10/29/20 06:17 MCH 28.8 pg (27.0-33.4) 10/29/20 06:17 MCHC 32.5 g/dL (32.0-36.0) 10/29/20 06:17 RDW 15.6 % (11.5-14.0) H 10/29/20 06:17 Plt Count 154 10^3/uL (150-450) 10/29/20 06:17 Lymph % (Auto) 29.1 % (13-45) 10/29/20 06:17 [place] % (Auto) 11.4 % (3-13) 10/29/20 06:17 Eos % (Auto) 0.1 % (0-6) 10/29/20 06:17 Baso % (Auto) 0.3 % (0-2) 10/29/20 06:17 Absolute Neuts (auto) 2.7 10^3/uL (1.7-8.2) 10/29/20 06:17 Absolute Lymphs (auto) 1.3 10^3/uL (0.5-4.7) 10/29/20 06:17 Absolute Monos (auto) 0.5 10^3/uL (0.1-1.4) 10/29/20 06:17 Absolute Eos (auto) 0.0 10^3/uL (0.0-0.6) 10/29/20 06:17 Absolute Basos (auto) 0.0 10^3/uL (0.0-0.2) 10/29/20 06:17 Total Counted 100 10/26/20 19:25 Seg Neutrophils % 59.1 % (42-78) 10/29/20 06:17 Seg Neuts % (Manual) 94 % (42-78) H 10/26/20 19:25 Band Neutrophils % 1 % (3-5) L 10/26/20 19:25 Lymphocytes % (Manual) 4 % (13-45) L 10/26/20 19:25 Monocytes % (Manual) 1 % (3-13) L 10/26/20 19:25 Eosinophils % (Manual) 0 % (0-6) 10/26/20 19:25 Basophils % (Manual) 0 % (0-2) 10/26/20 19:25 Abs Neuts (Manual) 11.5 10^3/uL (1.7-8.2) H 10/26/20 19:25 Abs Lymphs (Manual) 0.5 10^3/uL (0.5-4.7) 10/26/20 19:25 Abs Monocytes (Manual) 0.1 10^3/uL (0.1-1.4) 10/26/20 19:25 Absolute Eos (Manual) 0.0 10^3/uL (0.0-0.6) 10/26/20 19:25 Abs Basophils (Manual) 0.0 10^3/uL (0.0-0.2) 10/26/20 19:25 Toxic Vacuolation PRESENT 10/26/20 19:25 Platelet Comment DECREASED 10/26/20 19:25 Anisocytosis SLIGHT 10/26/20 19:25 PT 13.1 SEC (11.4-15.4) 10/26/20 19:25 INR 0.98 10/26/20 19:25 APTT 30.5 SEC (23.5-35.8) 10/26/20 19:25 Fibrinogen 530 mg/dL (209-497) H 10/26/20 19:25 Carbonic Acid 1.71 mmol/L (1.05-1.35) H 10/27/20 06:25 HCO3/H2CO3 Ratio 18:1 10/27/20 06:25 ABG pH 7.37 (7.35-7.45) 10/27/20 06:25 ABG pCO2 56.9 mmHg (35-45) H 10/27/20 06:25 ABG pO2 73.5 mmHg (80-100) L 10/27/20 06:25 ABG HCO3 31.8 mmol/L (20-24) H 10/27/20 06:25 ABG Total CO2 33.5 mmol/L (21-25) H 10/27/20 06:25 ABG O2 Saturation 94.0 % (94-98) 10/27/20 06:25 ABG Base Excess 5.0 mmol/L 10/27/20 06:25 VBG pH 7.34 (7.30-7.42) 10/26/20 15:25 VBG pCO2 63.4 mmHg (35-63) H 10/26/20 15:25 VBG HCO3 33.7 mmol/L (20-32) H 10/26/20 15:25 VBG Base Excess 6.0 mmol/L 10/26/20 15:25 FiO2 2.5L 10/27/20 06:25 Sodium 136.1 mmol/L (137-145) L 10/29/20 06:17 Potassium 3.5 mmol/L (3.6-5.0) L 10/29/20 06:17 Chloride 97 mmol/L (98-107) L 10/29/20 06:17 Carbon Dioxide 36 mmol/L (22-30) H 10/29/20 06:17 Anion Gap 3 (5-19) L 10/29/20 06:17 BUN 22 mg/dL (7-20) H 10/29/20 06:17 Creatinine 0.60 mg/dL (0.52-1.25) 10/29/20 06:17 Est GFR ( Amer) > 60 (>60) 10/29/20 06:17 Est GFR (MDRD) Non-Af > 60 (>60) 10/29/20 06:17 Glucose 134 mg/dL (75-110) H 10/29/20 06:17 POC Glucose 260 mg/dL (70-110) H 11/04/20 16:31 Lactic Acid 1.0 mmol/L (0.7-2.1) 10/26/20 19:25 Calcium 8.0 mg/dL (8.4-10.2) L 10/29/20 06:17 Ferritin 85.60 ng/mL (11.1-264.0) 10/26/20 19:25 Total Bilirubin 0.4 mg/dL (0.2-1.3) 10/29/20 06:17 Direct Bilirubin 0.2 mg/dL (0.0-0.4) 10/29/20 06:17 Neonat Total Bilirubin Not Reportable 10/29/20 06:17 Neonat Direct Bilirubin Not Reportable 10/29/20 06:17 Neonat Indirect Bili Not Reportable 10/29/20 06:17 AST 17 U/L (14-36) 10/29/20 06:17 ALT 12 U/L (<35) 10/29/20 06:17 Alkaline Phosphatase 62 U/L (38-126) 10/29/20 06:17 Lactate Dehydrogenase 291 U/L (120-246) H 10/26/20 19:25 Creatine Kinase 63 U/L (30-135) 10/26/20 19:25 Troponin I < 0.012 ng/mL 10/26/20 19:25 C-Reactive Protein 74.4 mg/L (<10.0) H 10/26/20 19:25 Total Protein 5.6 g/dL (6.3-8.2) L 10/29/20 06:17 Albumin 2.9 g/dL (3.5-5.0) L 10/29/20 06:17 Urine Color YELLOW 10/26/20 10:45 Urine Appearance CLEAR 10/26/20 10:45 Urine pH 7.0 (5.0-9.0) 10/26/20 10:45 Ur Specific Manning 1.015 10/26/20 10:45 Urine Protein 100 mg/dL (NEGATIVE) H 10/26/20 10:45 Urine Glucose (UA) >=500 mg/dL (NEGATIVE) H 10/26/20 10:45 Urine Ketones NEGATIVE mg/dL (NEGATIVE) 10/26/20 10:45 Urine Blood SMALL (NEGATIVE) H 10/26/20 10:45 Urine Nitrite NEGATIVE (NEGATIVE) 10/26/20 10:45 Urine Bilirubin NEGATIVE (NEGATIVE) 10/26/20 10:45 Urine Urobilinogen NEGATIVE mg/dL (<2.0) 10/26/20 10:45 Ur Leukocyte Esterase SMALL (NEGATIVE) H 10/26/20 10:45 Urine WBC (Auto) 24 /HPF 10/26/20 10:45 Urine RBC (Auto) 9 /HPF 10/26/20 10:45 Urine Bacteria (Auto) TRACE /HPF 10/26/20 10:45 Squamous Epi Cells Auto <1 /HPF 10/26/20 10:45 Urine Mucus (Auto) RARE /LPF 10/26/20 10:45 Urine Yeast (Budding) PRESENT /HPF 10/26/20 10:45 Urine Ascorbic Acid NEGATIVE (NEGATIVE) 10/26/20 10:45 Influenza A (RT-PCR) NEGATIVE (NEGATIVE) 10/26/20 18:32 Influenza B (RT-PCR) NEGATIVE (NEGATIVE) 10/26/20 18:32 RSV (RT-PCR) NEGATIVE (NEGATIVE) 10/26/20 18:32 SARS-CoV-2 Rap RNA(RT-PCR) POSITIVE (NEGATIVE) H 10/26/20 18:32 Blood Type A POSITIVE 10/26/20 19:25 10/26/20 19:25 Troponin I < 0.012 Impressions: Chest X-Ray 10/26/20 11:49 IMPRESSION: Multifocal bilateral pneumonia Shoulder X-Ray 10/31/20 00:00 IMPRESSION: Persistent overlap of the humeral head and glenoid (unchanged compared to the radiograph from 11/18/2018). There is advanced degeneration of the glenohumeral and acromioclavicular joints. The appearance of the greater tubercle of the humerus is consistent with sequela of chronic rotator cuff tendinopathy. There is no fracture. Stroke Is this a Stroke Patient?: No Acute Heart Failure Is this a Heart Failure Patient?: No
[2020-11-04] MEDS: INSULIN GLARGINE,HUM.REC.ANLOG 1,000 UNIT/10 ML VIAL SUBCUT SCH (22:50)
[2020-11-04] MEDS: ENOXAPARIN SODIUM INJ 40 MG/0.4 ML DISP.SYRIN SUBCUT SCH (22:51)
[2020-11-04] MEDS: CARBOXYMETHYLCELLULOSE SOD 0.5% 0.4 ML DROPERETTE OU SCH (22:56)
[2020-11-05] MEDS: PREGABALIN 50 MG CAPSULE PO SCH (05:42)
[2020-11-05] MEDS: INSULIN LISPRO 100 UNIT/ML 3 ML VIAL SUBCUT SCH ×2 (08:26→12:31)
[2020-11-05] MEDS: CALCIUM CARBONATE 600 MG TABLET PO SCH (08:27)
[2020-11-05] MEDS: BUPRENORPHINE HCL 2 MG SUBLINGUAL TABLET SL SCH (09:19)
[2020-11-05] MEDS: ALLOPURINOL 300 MG TABLET PO SCH (09:19)
[2020-11-05] MEDS: CHOLECALCIFEROL (D3) 1,000 UNIT (25 MCG) TABLET PO SCH (09:19)
[2020-11-05] MEDS: SENNOSIDES/DOCUSATE 8.6-50 MG 1 EACH TABLET PO SCH (09:19)
[2020-11-05] MEDS: CETIRIZINE 10 MG TABLET PO SCH (09:19)
[2020-11-05] MEDS: ZINC SULFATE 220 MG CAPSULE PO SCH (09:19)
[2020-11-05] MEDS: ASCORBIC ACID 500 MG TABLET PO SCH (09:19)
[2020-11-05] MEDS: ASPIRIN 81 MG TABLET, ENT COATED PO SCH (09:19)
[2020-11-05] MEDS: DEXAMETHASONE SOD PHOS INJ 10 MG/1 ML VIAL IV SCH (09:19)
[2020-11-05] MEDS: POLYETHYLENE GLYCOL 3350 POWDER 17 GM/1 PACKET PO SCH (09:21)
[2020-11-05] MEDS: NYSTATIN TOPICAL POWDER 15 GM TP SCH (09:21)
[2020-11-05] MEDS: FLUTICASONE/VILANTEROL 200-25 MCG/DOSE IH SCH (09:21)
[2020-11-05 11:02] VITALS: BP 110/42
[2020-11-05] MEDS: METOPROLOL SUCCINATE 25 MG TAB.SR.24H PO SCH (11:05)
[2020-11-05] MEDS: CYCLOSPORINE 0.05% OPH EMULSIO 0.4 ML DROPERETTE OU SCH (11:05)
== END 2020-11-05 12:36 | DRG 177 ==
LOC: ER 10:37 → EH 18:20 → 3N 21:40
PROVIDERS: ADMIT Internal Medicine; ATTEND Internal Medicine
PROC: XW033E5 Introduction of Remdesivir Anti-infective into Peripheral Vein, Percutaneous Approach, New Technology Group 5 (ICD-10-PCS; principal; 2020-10-27)
DX: U07.1 COVID-19 (principal); J12.82 Pneumonia due to coronavirus disease 2019; J96.01 Acute respiratory failure with hypoxia; E66.2 Morbid (severe) obesity with alveolar hypoventilation; T83.510A Infection and inflammatory reaction due to cystostomy catheter, initial encounter; N39.0 Urinary tract infection, site not specified; Z68.44 Body mass index [BMI] 60.0-69.9, adult; I25.10 Atherosclerotic heart disease of native coronary artery without angina pectoris; I50.9 Heart failure, unspecified; I11.0 Hypertensive heart disease with heart failure; E78.00 Pure hypercholesterolemia, unspecified; I73.9 Peripheral vascular disease, unspecified; E11.9 Type 2 diabetes mellitus without complications; E03.9 Hypothyroidism, unspecified; K21.9 Gastro-esophageal reflux disease without esophagitis; M19.211 Secondary osteoarthritis, right shoulder; Y93.9 Activity, unspecified; Y73.8 Miscellaneous gastroenterology and urology devices associated with adverse incidents, not elsewhere classified; Y92.121 Bathroom in nursing home as the place of occurrence of the external cause; Z96.0 Presence of urogenital implants; Z88.0 Allergy status to penicillin; Z79.4 Long term (current) use of insulin; Z79.891 Long term (current) use of opiate analgesic; Z79.899 Other long term (current) drug therapy
CPT/HCPCS: 36415; 36600; 71045; 80053; 81001; 82550; 82728; 82803; 82962; 83605; 83615; 84484; 85025; 85384; 85610; 85730; 86140; 86900; 86901; 87040; 87070; 87086; 93005; 93010; 96365; 96367; 96375; 99285; 0241U; C9803; J0571; J1100; J1650; J1815; J1940; J2020; J3490; J7050; J7060; J7120